=== PATIENT | male | born 1985 | race Caucasian/White ===

== ENCOUNTER 2022-01-05 09:55 | Outpatient (REF) | payer SELFPAY | END 2022-01-05 09:56 | disposition home or self-care (01) | LOC: NCHCN 09:55 | PROVIDERS: Visit Provider Nurse Practitioner Family | CPT/HCPCS: 80053; 85027; 80178 ==

== ENCOUNTER 2022-01-14 23:08 | Outpatient (REF) | payer BC, MEDICARE, SELFPAY | END 2022-01-14 23:09 | disposition home or self-care (01) | LOC: LBN 23:08 | PROVIDERS: Visit Provider Physician Assistant Medical | DX: L72.9 Follicular cyst of the skin and subcutaneous tissue, unspecified (principal) | CPT/HCPCS: 87070; 87205 ==

== ENCOUNTER 2022-01-17 16:46 | Outpatient (REF) | payer BC, MEDICARE, SELFPAY ==
[2022-01-17 18:21] LABS: HCT 45.6 % (40.0-50.0); HGB 14.7 g/dL (13.5-17.5); MCH 27.9 pg (27.0-33.0); MCHC 32.2 % (32.0-36.0); MCV 86.5 fL (80-95); MPV 11.9 fL (8.0-11.0); Platelet Count 225 10^3/uL (130-400); RBC 5.27 10^6/uL (4.36-5.78); RDW 12.4 % (11.8-14.1); RDW-SD 39.1 fL; WBC 7.17 10^3/uL (4.4-10.8)
[2022-01-17 18:47] LABS: ALT 39 U/L (16-63); AST 16 U/L (15-37); Albumin 4.1 g/dL (3.4-5.0); Alkaline Phosphatase 98 U/L (46-116); Anion Gap 8.6 mmol/L (3-11); BUN 13 mg/dL (7-18); Bilirubin, Total 0.7 mg/dL (0.2-1.0); CO2 23.4 mmol/L (21.0-32.0); CREATININE 1.1 mg/dL (0.70-1.30); Calcium 8.8 mg/dL (8.5-10.1); Chloride 106 mmol/L (98-107); Glucose 146 mg/dL (74-106); Potassium 4.3 mmol/L (3.5-5.1); Sodium 138 mmol/L (136-145); Total Protein 6.8 g/dL (6.4-8.2)
[2022-01-17 20:13] LABS: Lithium 0.6 mmol/l (0.6-1.2)
== END 2022-01-17 16:47 | disposition home or self-care (01) ==
LOC: NCHCN 16:46
PROVIDERS: Visit Provider Nurse Practitioner Family
DX: F41.8 Other specified anxiety disorders (principal); E66.9 Obesity, unspecified; Z51.81 Encounter for therapeutic drug level monitoring; Z79.899 Other long term (current) drug therapy
CPT/HCPCS: 80053; 85027; 80178

== ENCOUNTER 2022-02-02 21:19 | Emergency (ER) | payer BC, MEDICARE, SELFPAY ==
--- NOTE | 2022-02-02 21:37 | ED.GENADUL_ITS ---
Discharge Plan Disposition Patient Disposition: STILL A PATIENT Condition: Stable Discharge Details Clinical Impression: Bipolar disorder, manic Primary Care Provider: XIAO GAMINO ED Provider: Julius Fraser Meds and New Rx's Prescriptions: No Action doxycycline monohydrate 100 mg Tablet 100 mg PO DAILY bupropion HCl [Wellbutrin SR] 100 mg Tablet Sustained-Release 12 Hr 100 mg PO DAILY lorazepam 0.5 mg Tablet 0.5 mg PO PRN PRN lithium carbonate 600 mg Capsule 1,200 mg PO DAILY cholecalciferol (vitamin D3) [Vitamin D3] 25 mcg (1,000 unit) Capsule 1,000 mcg PO DAILY melatonin 5 mg Tablet 10 mg DAILY Medical Decision Making Patient presenting with police for psychiatric evaluation. He has no physical complaint. He is mostly cooperative. EKG and laboratory studies ordered. I reviewed mental health note and the warrant. Patient has history of bipolar and does appear to be exhibiting acute fe. Laboratory studies are unremarkable. Comfort level a little low. EKG normal except for tachycardia. I will EE the patient and hold for secondary certification from psychiatry. Patient regular medications ordered. Ativan tonight as well to try to encourage sleep. Lab Data Lab results reviewed: Yes I reviewed the patient's lab results. ECG Data Attestation: I personally reviewed and interpreted this ECG (s) as follows: Prior ECG tracings: not available for review Interpretation: see EKG HPI General Mode of arrival: ambulatory . Date/Time Provider Initiated Documentation: 02/02/22 21:37 . Information obtained by: patient, police and RN notes reviewed . HPI Narrative: Patient is brought to the ED by police on a warrant for emergency evaluation. Per ED warrant patient has history of bipolar disorder and has been worsening with insomnia, isolation, incoherent thinking and threats against his . Patient's mother is the individual who notified mental health of patient's decline. Patient arrives here mostly cooperative though clearly upset. Reports that his mother is just sticking her nose into places it does not belong. In the ED patient is hypervigilant, easily distractable, tangential and at times incoherent. He is constantly talking and unable to sit still. He denies any physical complaint. Related Data Home Medications Medication Instructions Recorded Confirmed bupropion HCl 100 mg tablet,12 hr 100 mg PO DAILY 02/03/22 02/03/22 sustained-release (Wellbutrin SR) cholecalciferol (vitamin D3) 25 1,000 mcg PO DAILY 02/03/22 02/03/22 mcg (1,000 unit) capsule (Vitamin D3) doxycycline monohydrate 100 mg 100 mg PO DAILY 02/03/22 02/03/22 tablet lithium carbonate 600 mg capsule 1,200 mg PO DAILY 02/03/22 02/03/22 lorazepam 0.5 mg tablet 0.5 mg PO PRN PRN 02/03/22 02/03/22 melatonin 5 mg tablet 10 mg DAILY 02/03/22 02/03/22 Allergies Allergy/AdvReac Type Severity Reaction Status Date / Time No Known Allergies Allergy Verified 02/02/22 21:53 Review of Systems Unobtainable due to mental condition PFSH All Active Problems (Updated 02/03/22 @ 03:01 by Julius Fraser MD) Bipolar disorder, manic (Acute) Medical History (Updated 02/03/22 @ 03:01 by Julius Fraser MD) Bipolar disorder Social History (Updated 02/03/22 @ 02:56 by Julius Fraser MD) Smoking risk assessment performed?: No Substance use type: marijuana Exam Narrative Exam Narrative: Const: Obese male in NAD. HEENT: NC/AT. Normal facial exam. Eyes: Normal conjunctiva and sclera. Neck: Supple. Trachea midline. Lungs: Normal respiratory effort. Lungs are clear. Cor: RRR without murmur/gallop. Good radial pulses. GI: Soft. NT/ND. No guarding or rebound. Neuro: A+O x 3. Normal speech, gait. Cranial nerves II - XII grossly intact. No gross motor or sensory deficit. Ext: No C/C/E. Skin: Warm and dry Psych: Cooperative. Chatty and constantly in motion. Tangential with flight of ideas at times though not consistently.
[2022-02-02 21:41] VITALS: BP 161/103; PULSE 136; RESP 22; TEMP 37.1; O2SAT 98
--- NOTE | 2022-02-02 21:45 | RT.EKG_ITS ---
APPROVED REPORT Exam: Resting ECG Reason for Exam: psych clearance Patient Location: E HR:112 bpm ECG Measurements Heart Rate 112 AXIS AZ 169 P 26 QRSd 94 QRS 54 QT 336 T 36 QTc 459 Conclusion Sinus tachycardia...rate> 99 Normal [place] I have reviewed and interpreted ECG and agree with software generated interpretation.
[2022-02-02 22:29] LABS: Abs Immature Grans 0.07 10^3/uL (0.0-0.06); Absolute Basophil Count 0.07 10^3/uL (0.0-0.2); Absolute Eosinophil Count 0.05 10^3/uL (0.0-0.7); Absolute Lymphocyte Count 2.57 10^3/uL (1.2-3.4); Absolute Monocyte Count 0.71 10^3/uL (0.1-0.8); Absolute Neutrophil Count 9.92 10^3/uL (1.2-6.7); Basophils % 0.5; Eosinophils % 0.4; HCT 45.1 % (40.0-50.0); HGB 15.4 g/dL (13.5-17.5); Immature Grans % 0.5; Lymphocytes % 19.2; MCH 29.1 pg (27.0-33.0); MCHC 34.1 % (32.0-36.0); MCV 85 fL (80-95); MPV 10.8 fL (8.0-11.0); Monocytes % 5.3; Neutrophils % 74.1; Platelet Count 287 10^3/uL (130-400); RBC 5.29 10^6/uL (4.36-5.78); RDW 12.7 % (11.8-14.1); WBC 13.39 10^3/uL (4.4-10.8)
[2022-02-02 22:42] LABS: *AMPHETAMINES SCREEN URINE Negative (Negative); *BARBITURATES SCREEN URINE Negative (Negative); *BENZODIAZEPINES SCREEN URINE Negative (Negative); Cannabinoids THC Positive (Negative); Cocaine Screen,Urine Negative (Negative); METHADONE URINE SCREEN Negative (Negative); OPIATES URINE SCREEN Negative (Negative)
[2022-02-02 22:43] LABS: Tricyclic Antidepressants Negative (Negative)
[2022-02-02 22:48] LABS: Acetaminophen < 2 ug/mL (10-30); Salicylate < 2.8 mg/dL (<2.8)
[2022-02-02 22:50] LABS: ALT 43 U/L (16-63); AST 20 U/L (15-37); Albumin 4.6 g/dL (3.4-5.0); Alkaline Phosphatase 90 U/L (46-116); Anion Gap 15.1 mmol/L (3-11); BUN 9 mg/dL (7-18); CO2 19.9 mmol/L (21.0-32.0); CREATININE 1.2 mg/dL (0.70-1.30); Calcium 8.9 mg/dL (8.5-10.1); Chloride 103 mmol/L (98-107); Glucose 146 mg/dL (74-106); Potassium 3.4 mmol/L (3.5-5.1); Sodium 138 mmol/L (136-145); TSH (W/Ref FT4) 2.57 uIU/mL (0.36-3.74); Total Protein 7.8 g/dL (6.4-8.2)
[2022-02-02 23:01] LABS: ETHANOL BLOOD < 3.0 mg/dL (<10)
[2022-02-02 23:38] LABS: Lithium 0.4 mmol/l (0.6-1.2)
[2022-02-02] MEDS: Lithium Carbonate 150 MG CAP (23:54)
[2022-02-02] MEDS: Doxycycline Hyclate 100 MG CAP PO (23:55)
[2022-02-02] MEDS: Melatonin 3 MG TAB 9 MG PO (23:55)
[2022-02-03 01:36] LABS: Lab Add On Test DONE
--- NOTE | 2022-02-03 06:49 | NUR.NOTE ---
0000 Pt with pressured speech, laying on floor and telling stories to [employer]. This RN offered pt PRN Ativan which patient declined, stating that isnt going to fix my situation 0300 Pt still awake and talking loudly to [employer]. Offered ativan again, pt declined. 0700 Pt still awake, did not sleep all night and is still awake talking to [employer]. Gave report to oncoming RN, Beulah. shadi
[2022-02-03 07:17] VITALS: BP 137/85; PULSE 93; RESP 16; TEMP 36.9; O2SAT 98
[2022-02-03 08:51] LABS: Source Nasal/Nares
[2022-02-03] MEDS: Doxycycline Hyclate 100 MG CAP PO ×2 (09:10→21:24)
[2022-02-03] MEDS: buPROPion-CR 100 MG TABCR PO (09:10)
[2022-02-03] MEDS: Cholecalciferol (Vitamin D3) 1,000 UNIT TAB 1000 UNITS PO (09:11)
--- NOTE | 2022-02-03 11:03 | CMSP_ITS ---
- If Service Date Differs Date of service: 02/03/22 Time of Service: 11:03 Care Management Safety Plan Status: Involuntary - Reason for Wait Reason for Wait: Inpatient Admission INVOLUNTARY FOR INPATIENT PSYCHIATRIC STABILIZATION. Chief Complaint: Venkata presents in the ED via police on a Warrant for Emergency Examination. He has a diagnosis of record of Bipolar 1 Disorder and has had several psychiatric hospitalizations in the past with his last hospitalization being in September 2020. Venkata is manic, reportedly has not slept in 3 - 4 days, and his mental health is decompensating. Venkata was reassessed by Rach [facility] Crisis Screener, this morning. He will remain at [facility] on involuntary status while awaiting a Second Certification by Psychiatrist and placement. Referrals are faxed to [facility], [facility], [facility], and [facility] for review. A huddle is done at 10:[address] Montero, ED provider, Monica, nursing fountain supervisor, Beulah, charge nurse, Diana RN, and SALINA Sloan, in attendance. Safety plan has been established to meet the needs of the patient, and consideration of the care team, to adhere to patient goals, identify restrictions based on behavioral status, address nutrition, and determine allowed personal belongings, tools for hygiene and personal care. Determine level of activity including ambulation, level of supervision, visitors, and determine privileges based on behaviors and level of engagement by pt. SAFETY PLAN: 1. Will remain on SI/HI precautions. In Paper Clothes 2. Will remain in room under direct supervision of one-on-one staff at all times provided by [employer], YESSENIA, PENSION ADVISER fertilizing machine operator. 3. May have paper cups, plates, finger foods as well as a cardboard spoon with which to eat meals. 4. Follow [facility] Management of the Admitted Behavioral Health Patient policy. 5. Shower permitted with supervision and at RN discretion. 6. No personal belongings. 7. Visitors: None at this time. 8. Activities: Soft cart items, music tablet, television, and other activities at RN discretion. 9. Bathroom privileges with escort in the ED. 10. Phone: May use [email or web address] hospital phone at RN discretion. Therapist, Lul Salguero, is a good support for patient. [facility] is contacting patient's to ask her to call Mr. Salguero to request that he outreach to patient while he is at [facility]. 11. Due to INVOLUNTARY status, patient is being held at [facility] by the Department of Mental Health ([facility]) until 2nd certification by [facility] Psychiatrist can be perfo rmed (within 24 hours). Staff will provide de-escalation support (CPI) as needed. If patient wishes to leave [facility], staff will contact [facility] Crisis Screener ([phone]) and On-Call Dado Operator ([phone]) as soon as possible. In the event of elopement, notify [facility] Police ([phone]). Patient is currently involuntarily at [facility]. [facility] Frontline Oxyacetylene Welder will continue seeking placement. Please contact the Prototype [employer] Dado Operator ([phone]) for any needed changes to Safety Plan. Safety plan has been provided to interdepartmental care team. Patient will be transported by candy catcher at time of discharge.
[2022-02-03 12:11] LABS: COVID-19 PCR Negative (Negative)
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
--- NOTE | 2022-02-03 16:18 | W.EDPROG ---
Date of service: 02/03/22 Time of Service: 15:19 Medical Decision Making Care was signed out by Dr. Fraser. Patient on EE hold. Initial certification has been performed and awaiting second certification. Patient did take his morning prescribed meds but refused offered anxiolytic. Patient did take his lithium last night as he was subtherapeutic. His next dose is scheduled for this evening. Patient is quite awake with flight of ideas at times. He has been provided his patient rights. A huddle was performed with nursing, to H&P and care management and a safety plan was developed which was shared with the patient. Sign Out Sign Out Data: Sign Out Comment: pending 2nd certification Last updated by Julius Fraser MD at 02/03/22 07:39 Discharge Plan Disposition Patient Disposition: STILL A PATIENT Condition: Stable Discharge Details Clinical Impression: Bipolar disorder, manic Primary Care Provider: XIAO GAMINO ED Provider: Duc Montero Home Meds and New Rx's Prescriptions: No Action doxycycline monohydrate 100 mg Tablet 100 mg PO DAILY bupropion HCl [Wellbutrin SR] 100 mg Tablet Sustained-Release 12 Hr 100 mg PO DAILY lorazepam 0.5 mg Tablet 0.5 mg PO PRN PRN lithium carbonate 600 mg Capsule 1,200 mg PO DAILY cholecalciferol (vitamin D3) [Vitamin D3] 25 mcg (1,000 unit) Capsule 1,000 mcg PO DAILY melatonin 5 mg Tablet 10 mg DAILY
--- NOTE | 2022-02-03 19:45 | NUR.NOTE ---
Nursing Note: Attempted to contact of patient around 19:45. Will attempt again later.
--- NOTE | 2022-02-03 19:58 | PDOC.MHCN ---
Date of service: 02/03/22 Time of Service: 19:27 Mental Health Crisis Note Presenting Issue How did you arrive at the ED and why did you come: Pt arrived on 02.02.2022 after ESC Muzzy and this clinician assessed him at his home after concerning calls form his and his mother about a possible manic episode that was deteriorating his ability to care for himself. Precipitating Factors Pt denied Si and HI however, he is experiencing an episode of fe. Disposition BEHAVIOR: Pt presents as agitated and eager to go home and not be in the hospital any longer stating that he has tickets for a concert [employer] and would like to go. He earlier stated that he wants to go home to sleep accusing police of preventing him from doing son on 02.02.2022. EYE CONTACT: Eye contact is sporadic. MOOD: Mood is agitated but cooperative. AFFECT: Affect is congruent. APPETITE: Good per his report. SLEEP(trouble falling/staying asleep: Has not slept in 4 days. Plan Pt will remain at [facility] until placement is found. [facility] [place] called [facility] and stated that they needed a prior authorization for potential placement on 02.04.2022. This clinician called BC/BS and was informed that no prior auth was necessary as all mental health treatments are approved. This clinician gave contact information for a clinician to outreach to this clinician on Sunday. This information was shared with [place] as well as [facility]. This clinician will arrive first thing in the am on 02.04.2022 to re-assess, complete the transport check list and [facility] from [facility] to [place]. Signature Clinician's Name/Title: Rach Márquez MS, [facility] Emergency Services Clinician, [facility]
[2022-02-03] MEDS: Melatonin 3 MG TAB 9 MG PO (21:24)
[2022-02-03] MEDS: Lithium Carbonate 300 MG CAP 600 MG PO (21:24)
--- NOTE | 2022-02-03 22:10 | W.EDPROG ---
Date of service: 02/03/22 Time of Service: 21:10 Medical Decision Making Patient intermittently pacing in room, talking to various staff members, at times tangential and aggressive however redirectable, requesting his CPAP for sleep. Compliant with taking his evening medications. Was attached to CPAP is resting comfortably in bed currently. Has been accepted at [facility]. Sign Out Sign Out Data: Sign Out Comment: pending 2nd certification Last updated by Julius Fraser MD at 02/03/22 07:39 Sign Out Comment: pending second cert. [facility], care mangement, and nursing. Last updated by Duc Montero MD at 02/03/22 16:22 Discharge Plan Disposition Patient Disposition: STILL A PATIENT Condition: Stable Discharge Details Clinical Impression: Bipolar disorder, manic Primary Care Provider: XIAO GAMINO ED Provider: Feng Hutchison Home Meds and New Rx's Prescriptions: No Action doxycycline monohydrate 100 mg Tablet 100 mg PO DAILY bupropion HCl [Wellbutrin SR] 100 mg Tablet Sustained-Release 12 Hr 100 mg PO DAILY lorazepam 0.5 mg Tablet 0.5 mg PO PRN PRN lithium carbonate 600 mg Capsule 1,200 mg PO DAILY cholecalciferol (vitamin D3) [Vitamin D3] 25 mcg (1,000 unit) Capsule 1,000 mcg PO DAILY melatonin 5 mg Tablet 10 mg DAILY
[2022-02-03] MEDS: LORazepam 1 MG TAB 2 MG PO (23:27)
--- NOTE | 2022-02-03 23:51 | ED.PROG_ITS ---
Date of service: 02/03/22 Time of Service: 22:51 Medical Decision Making pt here involuntary for decompensated bipolar and apparently accepted at [facility]. REquested something to help him sleep so ativan ordered, will continue to monitor in the ED Sign Out Sign Out Data: Sign Out Comment: pending 2nd certification Last updated by Julius Fraser MD at 02/03/22 07:39 Sign Out Comment: pending second cert. care plan developed in huddle with mental health, care mangement, and nursing. Last updated by Duc Montero MD at 02/03/22 16:22 Sign Out Comment: now certified as involuntary hold, accepted at [facility]; on CPAP to sleep Last updated by Feng Hutchison MD at 02/03/22 23:02 Sign Out Comment: involuntary, accepted at [facility] pending transfer Last updated by Carlitos Singh MD at 02/03/22 23:43 Discharge Plan Disposition Patient Disposition: STILL A PATIENT Condition: Stable Discharge Details Clinical Impression: Bipolar disorder, manic Primary Care Provider: XIAO GAMINO ED Provider: Carlitos Singh Home Meds and New Rx's Prescriptions: No Action doxycycline monohydrate 100 mg Tablet 100 mg PO DAILY bupropion HCl [Wellbutrin SR] 100 mg Tablet Sustained-Release 12 Hr 100 mg PO DAILY lorazepam 0.5 mg Tablet 0.5 mg PO PRN PRN lithium carbonate 600 mg Capsule 1,200 mg PO DAILY cholecalciferol (vitamin D3) [Vitamin D3] 25 mcg (1,000 unit) Capsule 1,000 mcg PO DAILY melatonin 5 mg Tablet 10 mg DAILY
[2022-02-04] MEDS: Acetaminophen 500 MG TAB 1000 MG PO (03:52)
[2022-02-04 06:59] VITALS: BP 120/70; PULSE 86; RESP 18; TEMP 36.6; O2SAT 97
--- NOTE | 2022-02-04 08:35 | ED.PROG_ITS ---
Date of service: 02/04/22 Time of Service: 07:35 Medical Decision Making 0800 --please see previous providers notes for initial presentation, exam, plan and course. Case endorsed with plan for transfer this morning after acceptance to [facility]. 0815 --Pt began yelling stating I'm an atheist after speaking with his over the phone. Patient was able to be redirected and became calm. 0830 --patient accepted for transfer to [facility]. Discussed with accepting PAINT DEPARTMENT SUPERVISOR J Carlos Thomas. Patient has remained calm and cooperative. 1230 --patient initially was refusing to go with transport stating I want to go home . He was able to be redirected and discussed with Rach and is agreeable with transfer. Patient ambulated out of the ED with transport. Medical Records Medical records reviewed: Yes I reviewed the patient's medical records. Lab Data Lab results reviewed: Yes I reviewed the patient's lab results. Labs: Laboratory Tests Range/Units 02/01/22 02/02/22 02/02/22 23:13 22:10 22:15 WBC (4.4-10.8) 10^3/uL RBC (4.36-5.78) 10^6/uL Hgb (13.5-17.5) g/dL Hct (40.0-50.0) % MCV (80-95) fL MCH (27.0-33.0) pg MCHC (32.0-36.0) % RDW (11.8-14.1) % Plt Count (130-400) 10^3/uL MPV (8.0-11.0) fL Immature Gran % Neutrophils % Lymphocytes % Monocytes % Eosinophils % Basophils % Nucleated RBC % (0.0-0.3) % Absolute Neutrophils (1.2-6.7) 10^3/uL Absolute Lymphocytes (1.2-3.4) 10^3/uL Absolute Monocytes (0.1-0.8) 10^3/uL Absolute Eosinophils (0.0-0.7) 10^3/uL Absolute Basophils (0.0-0.2) 10^3/uL Sodium (136-145) mmol/L 138 Potassium (3.5-5.1) mmol/L 3.4 L Chloride (98-107) mmol/L 103 Carbon Dioxide (21.0-32.0) mmol/L 19.9 L Anion Gap (3-11) mmol/L 15.1 H BUN (7-18) mg/dL 9 Creatinine (0.70-1.30) mg/dL 1.2 Estimated GFR/1.73 m2 (mL/min/1.73m2) >= 60.00 Glucose (74-106) mg/dL 146 H Calcium (8.5-10.1) mg/dL 8.9 Total Bilirubin (0.2-1.0) mg/dL 1.0 AST (15-37) U/L 20 ALT (16-63) U/L 43 Alkaline Phosphatase (46-116) U/L 90 Total Protein (6.4-8.2) g/dL 7.8 Albumin (3.4-5.0) g/dL 4.6 TSH (0.36-3.74) uIU/mL 2.57 Salicylates (<2.8) mg/dL Urine Opiates Screen (Negative) Negative Urine Methadone Screen (Negative) Negative Acetaminophen (10-30) ug/mL Ur Barbiturates Screen (Negative) Negative Ur Tricyclics Screen (Negative) Negative Ur Amphetamines Screen (Negative) Negative U Benzodiazepines Scrn (Negative) Negative [place] (0.6-1.2) mmol/l Urine Cocaine Screen (Negative) Negative Ur THC Screen (Negative) Positive A Ethyl Alcohol (<10) mg/dL < 3.0 COVID-19 Source SARS-CoV-2 (PCR) (Negative) Add-On Test Request DONE Range/Units 02/02/22 02/02/22 02/02/22 22:15 22:15 23:11 WBC (4.4-10.8) 10^3/uL 13.39 H RBC (4.36-5.78) 10^6/uL 5.29 Hgb (13.5-17.5) g/dL 15.4 Hct (40.0-50.0) % 45.1 MCV (80-95) fL 85 MCH (27.0-33.0) pg 29.1 MCHC (32.0-36.0) % 34.1 RDW (11.8-14.1) % 12.7 Plt Count (130-400) 10^3/uL 287 MPV (8.0-11.0) fL 10.8 Immature Gran % 0.5 Neutrophils % 74.1 Lymphocytes % 19.2 Monocytes % 5.3 Eosinophils % 0.4 Basophils % 0.5 Nucleated RBC % (0.0-0.3) % 0.0 Absolute Neutrophils (1.2-6.7) 10^3/uL 9.92 H Absolute Lymphocytes (1.2-3.4) 10^3/uL 2.57 Absolute Monocytes (0.1-0.8) 10^3/uL 0.71 Absolute Eosinophils (0.0-0.7) 10^3/uL 0.05 Absolute Basophils (0.0-0.2) 10^3/uL 0.07 Sodium (136-145) mmol/L Potassium (3.5-5.1) mmol/L Chloride (98-107) mmol/L Carbon Dioxide (21.0-32.0) mmol/L Anion Gap (3-11) mmol/L BUN (7-18) mg/dL Creatinine (0.70-1.30) mg/dL Estimated GFR/1.73 m2 (mL/min/1.73m2) Glucose (74-106) mg/dL Calcium (8.5-10.1) mg/dL Total Bilirubin (0.2-1.0) mg/dL AST (15-37) U/L ALT (16-63) U/L Alkaline Phosphatase (46-116) U/L Total Protein (6.4-8.2) g/dL Albumin (3.4-5.0) g/dL TSH (0.36-3.74) uIU/mL Salicylates (<2.8) mg/dL < 2.8 Urine Opiates Screen (Negative) Urine Methadone Screen (Negative) Acetaminophen (10-30) ug/mL < 2 Ur Barbiturates Screen (Negative) Ur Tricyclics Screen (Negative) Ur Amphetamines Screen (Negative) U Benzodiazepines Scrn (Negative) [place] (0.6-1.2) mmol/l 0.4 L Urine Cocaine Screen (Negative) Ur THC Screen (Negative) Ethyl Alcohol (<10) mg/dL COVID-19 Source SARS-CoV-2 (PCR) (Negative) Add-On Test Request Range/Units 02/03/22 08:45 WBC (4.4-10.8) 10^3/uL RBC (4.36-5.78) 10^6/uL Hgb (13.5-17.5) g/dL Hct (40.0-50.0) % MCV (80-95) fL MCH (27.0-33.0) pg MCHC (32.0-36.0) % RDW (11.8-14.1) % Plt Count (130-400) 10^3/uL MPV (8.0-11.0) fL Immature Gran % Neutrophils % Lymphocytes % Monocytes % Eosinophils % Basophils % Nucleated RBC % (0.0-0.3) % Absolute Neutrophils (1.2-6.7) 10^3/uL Absolute Lymphocytes (1.2-3.4) 10^3/uL Absolute Monocytes (0.1-0.8) 10^3/uL Absolute Eosinophils (0.0-0.7) 10^3/uL Absolute Basophils (0.0-0.2) 10^3/uL Sodium (136-145) mmol/L Potassium (3.5-5.1) mmol/L Chloride (98-107) mmol/L Carbon Dioxide (21.0-32.0) mmol/L Anion Gap (3-11) mmol/L BUN (7-18) mg/dL Creatinine (0.70-1.30) mg/dL Estimated GFR/1.73 m2 (mL/min/1.73m2) Glucose (74-106) mg/dL Calcium (8.5-10.1) mg/dL Total Bilirubin (0.2-1.0) mg/dL AST (15-37) U/L ALT (16-63) U/L Alkaline Phosphatase (46-116) U/L Total Protein (6.4-8.2) g/dL Albumin (3.4-5.0) g/dL TSH (0.36-3.74) uIU/mL Salicylates (<2.8) mg/dL Urine Opiates Screen (Negative) Urine Methadone Screen (Negative) Acetaminophen (10-30) ug/mL Ur Barbiturates Screen (Negative) Ur Tricyclics Screen (Negative) Ur Amphetamines Screen (Negative) U Benzodiazepines Scrn (Negative) [place] (0.6-1.2) mmol/l Urine Cocaine Screen (Negative) Ur THC Screen (Negative) Ethyl Alcohol (<10) mg/dL COVID-19 Source Nasal/Nares SARS-CoV-2 (PCR) (Negative) Negative Add-On Test Request Sign Out Sign Out Data: Sign Out Comment: pending 2nd certification Last updated by Julius Fraser MD at 02/03/22 07:39 Sign Out Comment: pending second cert. [facility], care mangement, and nursing. Last updated by Duc Montero MD at 02/03/22 16:22 Sign Out Comment: now certified as involuntary hold, accepted at [facility]; on CPAP to sleep Last updated by Feng Hutchison MD at 02/03/22 23:02 Sign Out Comment: involuntary, accepted at [facility] pending transfer Last updated by Carlitos Singh MD at 02/03/22 23:43 Discharge Plan Disposition Patient Disposition: [facility] Condition: Stable Discharge Details Clinical Impression: Bipolar disorder, manic Primary Care Provider: XIAO GAMINO ED Provider: Devora An Home Meds and New Rx's Prescriptions: No Action doxycycline monohydrate 100 mg Tablet 100 mg PO DAILY bupropion HCl [Wellbutrin SR] 100 mg Tablet Sustained-Release 12 Hr 100 mg PO DAILY lorazepam 0.5 mg Tablet 0.5 mg PO PRN PRN lithium carbonate 600 mg Capsule 1,200 mg PO DAILY cholecalciferol (vitamin D3) [Vitamin D3] 25 mcg (1,000 unit) Capsule 1,000 mcg PO DAILY melatonin 5 mg Tablet 10 mg DAILY Discharge Data Discharge Date/Time-TO BE ENTERED AT DEPARTURE: 02/04/22 12:43
[2022-02-04] MEDS: Cholecalciferol (Vitamin D3) 1,000 UNIT TAB 1000 UNITS PO (08:39)
[2022-02-04] MEDS: Doxycycline Hyclate 100 MG CAP PO (08:39)
[2022-02-04] MEDS: buPROPion-CR 100 MG TABCR PO (08:39)
--- NOTE | 2022-02-04 21:56 | PDOC.MHCN ---
Date of service: 02/04/22 Time of Service: 20:56 Mental Health Crisis Note Presenting Issue How did you arrive at the ED and why did you come: Pt arrived on 02.02.2022 after [facility] Muzzy and this clinician assessed him at his home after concerning calls form his and his mother about a possible manic episode that was deteriorating his ability to care for himself.? Precipitating Factors Pt denied SI and HI. He is not having delusions however, his thinking is disjointed. Disposition BEHAVIOR: Pt was agitated and argumentative about why he was there. He shows poor insight and judgment. EYE CONTACT: Pt makes intense eye contact. MOOD: Pt is agitated and verbally agressive. AFFECT: Congruent with mood. APPETITE: Pt is eating fine. SLEEP(trouble falling/staying asleep: Pt got maybe two hours of sleep last night. Plan Pt was accepted to [facility] today and transported via hired transport personnel. Signature Clinician's Name/Title: Rach Márquez MS, [facility] Emergency Services Clinician, [facility]
== END 2022-02-04 12:43 | disposition short-term general hospital (02) ==
PROVIDERS: Emergency Medicine; Student in an Organized Health Care Education/Training Program; Emergency Provider Physician Assistant; PCP Nurse Practitioner Family
DX: F31.9 Bipolar disorder, unspecified (principal); R00.0 Tachycardia, unspecified; Z79.899 Other long term (current) drug therapy
CPT/HCPCS: 80053; 80307; 87635; 93005; 99285; 80178; 80320; 80329; 84443; 85025; 93010

== ENCOUNTER 2022-02-23 18:28 | Outpatient (REF) | payer BC, MEDICARE, SELFPAY ==
[2022-02-23 15:06] LABS: HCT 45.8 % (40.0-50.0); HGB 15.2 g/dL (13.5-17.5); MCH 29.2 pg (27.0-33.0); MCHC 33.2 % (32.0-36.0); MCV 88 fL (80-95); MPV 11.2 fL (8.0-11.0); Platelet Count 206 10^3/uL (130-400); RBC 5.21 10^6/uL (4.36-5.78); RDW 13.5 % (11.8-14.1); RDW-SD 43.2 fL; WBC 8.29 10^3/uL (4.4-10.8)
[2022-02-23 15:25] LABS: ALT 59 U/L (16-63); AST 33 U/L (15-37); Albumin 3.9 g/dL (3.4-5.0); Alkaline Phosphatase 84 U/L (46-116); Anion Gap 8.6 mmol/L (3-11); BUN 13 mg/dL (7-18); Bilirubin, Total 0.8 mg/dL (0.2-1.0); CO2 24.4 mmol/L (21.0-32.0); CREATININE 0.9 mg/dL (0.70-1.30); Calcium 9.1 mg/dL (8.5-10.1); Chloride 108 mmol/L (98-107); Glucose 97 mg/dL (74-106); Potassium 4.4 mmol/L (3.5-5.1); Sodium 141 mmol/L (136-145); Total Protein 6.4 g/dL (6.4-8.2)
[2022-02-23 21:28] LABS: Lithium (UVM) 0.6 mmol/L (See Note)
== END 2022-02-23 18:29 | disposition home or self-care (01) ==
LOC: NCHCN 18:28
PROVIDERS: PCP Nurse Practitioner Family; Visit Provider Nurse Practitioner Family
DX: Z00.00 Encounter for general adult medical examination without abnormal findings (principal); Z51.81 Encounter for therapeutic drug level monitoring; F41.8 Other specified anxiety disorders; E66.9 Obesity, unspecified
CPT/HCPCS: 80053; 85027; 80178

== ENCOUNTER 2022-03-15 16:26 | Outpatient (REF) | payer BC, MEDICARE, SELFPAY ==
[2022-03-15 15:33] LABS: Lithium 0.9 mmol/l (0.6-1.2)
== END 2022-03-15 16:27 | disposition home or self-care (01) ==
LOC: NCHCN 16:26
PROVIDERS: PCP Nurse Practitioner Family; Visit Provider Nurse Practitioner Family
DX: Z79.899 Other long term (current) drug therapy (principal); Z51.81 Encounter for therapeutic drug level monitoring; F41.8 Other specified anxiety disorders
CPT/HCPCS: 80178

== ENCOUNTER 2022-06-05 03:47 | Outpatient (CLI) | payer BC, MEDICARE, SELFPAY ==
[2022-06-05 12:29] LABS: Hemoglobin A1C 5.4 % (<5.7)
[2022-06-05 12:33] LABS: Lithium 0.8 mmol/l (0.6-1.2)
[2022-06-05 12:35] LABS: Anion Gap 10.7 mmol/L (3-11); BUN 12 mg/dL (7-18); CO2 22.3 mmol/L (21.0-32.0); Calcium 8.8 mg/dL (8.5-10.1); Chloride 107 mmol/L (98-107); Estimated GFR 100.66 (mL/min/1.73m2); Glucose 127 mg/dL (74-106); Potassium 3.9 mmol/L (3.5-5.1); Sodium 140 mmol/L (136-145); TSH 1.53 uIU/mL (0.36-3.74)
== END 2022-06-05 03:48 | disposition home or self-care (01) ==
LOC: LOS 03:48
PROVIDERS: PCP Nurse Practitioner Family; Visit Provider Nurse Practitioner Psychiatric/Mental Health
DX: F33.3 Major depressive disorder, recurrent, severe with psychotic symptoms (principal)
CPT/HCPCS: 36415; 80048; 80178; 83036; 84443

== ENCOUNTER 2022-07-12 12:32 | Outpatient (REF) | payer BC, MEDICARE, SELFPAY | END 2022-07-12 12:33 | disposition home or self-care (01) | LOC: NCHCN 12:32 | PROVIDERS: PCP Nurse Practitioner Family; Visit Provider Nurse Practitioner Family | DX: N52.2 Drug-induced erectile dysfunction (principal); Z31.41 Encounter for fertility testing | CPT/HCPCS: 89240; 89310 ==

== ENCOUNTER 2022-10-05 10:56 | Outpatient (CLI) | payer BC, MEDICARE, SELFPAY ==
[2022-10-05 13:28] LABS: Abs Immature Grans 0.04 10^3/uL (0.0-0.06); Absolute Basophil Count 0.06 10^3/uL (0.0-0.2); Absolute Eosinophil Count 0.15 10^3/uL (0.0-0.7); Absolute Lymphocyte Count 2.24 10^3/uL (1.2-3.4); Absolute Monocyte Count 0.38 10^3/uL (0.1-0.8); Absolute Neutrophil Count 5.14 10^3/uL (1.2-6.7); Basophils % 0.7; Eosinophils % 1.9; HCT 43.8 % (40.0-50.0); HGB 14.7 g/dL (13.5-17.5); Immature Grans % 0.5; MCH 28.5 pg (27.0-33.0); MCHC 33.6 % (32.0-36.0); MCV 85 fL (80-95); MPV 10.7 fL (8.0-11.0); Monocytes % 4.7; Neutrophils % 64.2; Platelet Count 197 10^3/uL (130-400); RBC 5.15 10^6/uL (4.36-5.78); RDW 12.2 % (11.8-14.1); RDW-SD 37.9 fL; WBC 8.01 10^3/uL (4.4-10.8)
[2022-10-05 14:00] LABS: Hemoglobin A1C 6.6 % (<5.7)
[2022-10-05 14:21] LABS: ALT 35 U/L (16-63); AST 15 U/L (15-37); Albumin 4.1 g/dL (3.4-5.0); Alkaline Phosphatase 95 U/L (46-116); Anion Gap 11.7 mmol/L (3-11); BUN 9 mg/dL (7-18); Bilirubin, Total 0.8 mg/dL (0.2-1.0); CO2 22.3 mmol/L (21.0-32.0); CREATININE 1.1 mg/dL (0.70-1.30); Calcium 8.3 mg/dL (8.5-10.1); Calculated LDL 80 mg/dL (<100); Chloride 104 mmol/L (98-107); Cholesterol 147 mg/dL (<200); Estimated GFR 89.78 (mL/min/1.73m2); Ferritin 218 ng/mL (26-388); Folate 13.1 ng/mL (8.6-20.0); Glucose 239 mg/dL (74-106); HDL Cholesterol 50 mg/dL (40-60); Magnesium 2.1 mg/dL (1.8-2.4); Potassium 3.8 mmol/L (3.5-5.1); Sodium 138 mmol/L (136-145); TSH 2.14 uIU/mL (0.36-3.74); Total Protein 7.1 g/dL (6.4-8.2); Triglyceride 86 mg/dL (<150); Vitamin B12 530 pg/mL (193-986)
[2022-10-05 14:24] LABS: Lithium 0.6 mmol/l (0.6-1.2)
[2022-10-05 14:52] LABS: Vitamin D 25 Total 16.9 ng/mL (30-100)
[2022-10-05 15:02] LABS: C-Reactive Protein 0.19 mg/dL (0.0-0.3); FREE T4 1.06 ng/dL (0.76-1.46)
[2022-10-05 22:21] LABS: T3,Free 3.3 pg/mL (2.8-5.3)
[2022-10-07 11:14] LABS: Copper, Serum 87 mcg/dL (73-129)
== END 2022-10-05 10:57 | disposition home or self-care (01) ==
LOC: LBO 10:57
PROVIDERS: PCP Nurse Practitioner Family; Visit Provider Psychiatry & Neurology Psychiatry
DX: F33.3 Major depressive disorder, recurrent, severe with psychotic symptoms (principal); Z79.899 Other long term (current) drug therapy; Z01.89 Encounter for other specified special examinations; Z51.81 Encounter for therapeutic drug level monitoring; Z13.228 Encounter for screening for other metabolic disorders
CPT/HCPCS: 36415; 80053; 80061; 82306; 82525; 80178; 82607; 82728; 82746; 83036; 83735; 84439; 84443; 84481; 85025; 86140

== ENCOUNTER 2022-10-30 16:11 | Outpatient (REF) | payer BC, MEDICARE, SELFPAY ==
[2022-11-01 16:41] LABS: Appearance Normal; Container Type 50 mL Conical; Double Forms 3.5 %; Grade 2.5 (>=2.5); Head Shape Abnormal 35.5 %; Midpiece Defect 10.5 %; Motile/mL 0.1 x10(6) (>=6.0); Motility 20 % (>=40); Sperm/mL 0.5 x10(6) (>=15.0); Study Type Semen; Supravital Stain 18 % live (>=58); Tail Defect 33.5 %; WBC/mL 0.04 x10(6) (<1.00)
== END 2022-10-30 16:12 | disposition home or self-care (01) ==
LOC: LBN 16:11
PROVIDERS: PCP Nurse Practitioner Family; Visit Provider Nurse Practitioner Gerontology
DX: Z31.41 Encounter for fertility testing (principal)
CPT/HCPCS: 89240; 89310

== ENCOUNTER 2023-03-14 02:43 | Outpatient (CLI) | payer BC, MEDICARE, SELFPAY ==
[2023-03-14 12:20] LABS: Hemoglobin A1C 4.9 % (<5.7)
[2023-03-14 12:54] LABS: FREE T4 1.04 ng/dL (0.76-1.46); TSH 1.77 uIU/mL (0.36-3.74)
[2023-03-14 13:42] LABS: Lithium 0.9 mmol/l (0.6-1.2)
== END 2023-03-14 02:44 | disposition home or self-care (01) ==
LOC: LBO 02:43
PROVIDERS: PCP Nurse Practitioner Family; Visit Provider Counselor Addiction (Substance Use Disorder)
DX: F33.3 Major depressive disorder, recurrent, severe with psychotic symptoms (principal); Z79.899 Other long term (current) drug therapy; Z51.81 Encounter for therapeutic drug level monitoring
CPT/HCPCS: 36415; 80178; 83036; 84439; 84443

== ENCOUNTER 2023-04-26 18:05 | Outpatient (REF) | payer BC, MEDICARE, SELFPAY ==
[2023-04-26 16:46] LABS: Vitamin D 25 Total 22.2 ng/mL (30-100)
[2023-04-26 17:02] LABS: Anion Gap 9.8 mmol/L (3-11); BUN 20 mg/dL (7-18); CO2 24.2 mmol/L (21.0-32.0); CREATININE 0.9 mg/dL (0.70-1.30); Calcium 8.9 mg/dL (8.5-10.1); Chloride 108 mmol/L (98-107); Estimated GFR 113.51 (mL/min/1.73m2); Glucose 113 mg/dL (74-106); Potassium 4.2 mmol/L (3.5-5.1); Sodium 142 mmol/L (136-145)
== END 2023-04-26 18:06 | disposition home or self-care (01) ==
LOC: NCHCN 18:05
PROVIDERS: PCP Nurse Practitioner Family; Visit Provider Nurse Practitioner Family
DX: E11.9 Type 2 diabetes mellitus without complications (principal); E55.9 Vitamin D deficiency, unspecified
CPT/HCPCS: 80048; 82306

== ENCOUNTER 2023-07-19 18:32 | Outpatient (REF) | payer BC, MEDICARE, SELFPAY ==
[2023-07-19 19:05] LABS: Lithium 0.7 mmol/l (0.6-1.2)
[2023-07-19 19:21] LABS: ALT 33 U/L (16-63); AST 19 U/L (15-37); Albumin 4.1 g/dL (3.4-5.0); Alkaline Phosphatase 78 U/L (46-116); Anion Gap 7.8 mmol/L (3-11); BUN 15 mg/dL (7-18); Bilirubin, Total 0.9 mg/dL (0.2-1.0); CO2 24.2 mmol/L (21.0-32.0); CREATININE 0.8 mg/dL (0.70-1.30); Calcium 9.7 mg/dL (8.5-10.1); Chloride 108 mmol/L (98-107); Estimated GFR 117.63 (mL/min/1.73m2); Glucose 89 mg/dL (74-106); Potassium 4.3 mmol/L (3.5-5.1); Sodium 140 mmol/L (136-145)
== END 2023-07-19 18:33 | disposition home or self-care (01) ==
LOC: NCHCN 18:32
PROVIDERS: PCP Nurse Practitioner Family; Visit Provider Nurse Practitioner Family
DX: Z51.81 Encounter for therapeutic drug level monitoring (principal)
CPT/HCPCS: 80053; 80178

== ENCOUNTER 2023-11-28 14:48 | Outpatient (CLI) | payer BC, MEDICARE, SELFPAY ==
[2023-11-28 14:54] LABS: Lithium 0.7 mmol/l (0.6-1.2)
== END 2023-11-28 14:49 | disposition home or self-care (01) ==
PROVIDERS: PCP Nurse Practitioner Family; Visit Provider Nurse Practitioner Psychiatric/Mental Health
DX: F31.74 Bipolar disorder, in full remission, most recent episode manic (principal); Z51.81 Encounter for therapeutic drug level monitoring; Z79.899 Other long term (current) drug therapy
CPT/HCPCS: 36415; 80178

== ENCOUNTER 2024-06-12 03:19 | Outpatient (CLI) | payer BC, MEDICARE, SELFPAY ==
--- NOTE | 2024-06-12 14:15 | W.NUTRFU ---
Date of service: 06/12/24 Time of Service: 13:00 Nutrition Note NOTE: Venkata referred for nutrition visit regarding weight mgt. 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 A1C was 6.8% in April - Venkata states he self-discontinued metformin. Is on Ozempic but switching to Wegovy in 3 months due to insurance coverage. Eats dinner with at home but other meals are independent during the day. We reviewed typical eating pattern and choices and Venkata's current diet assessed in lower in protein and fiber. We discussed recommended energy intake of ~2400kcals and suggested a good 180g protein daily with 30-50 at his first meal ideally within an our of waking. Suggested use of whey protein powder 1-2 times daily to get ~50g satisfied and use other lean animal options and plant options to round out the rest. WE highlighted the value of plants in the diet and especially nuts/seeds and nonstarchy veggies to keep carb load down. Gave Venkata some macro goals as he does use my fitness pal antonio for tracking periodically. GAve fiber goal of at least 30g per day and added sugar goal of 30g or less out of a total CHO goal of ~225g per day. Venkata took my contact info should he desire follow up or more resources to help him keep track of how close he is coming to meeting macro goals. Time Spent in Nutritional Counseling and Treatment: 40min
== END 2024-06-12 03:20 | disposition home or self-care (01) ==
LOC: DS 03:20
PROVIDERS: PCP Nurse Practitioner Family; Visit Provider Dietitian, Registered
DX: Z71.3 Dietary counseling and surveillance (principal)
CPT/HCPCS: 00123; 97802

== ENCOUNTER 2024-06-16 15:17 | Outpatient (CLI) | payer BC, MEDICARE, SELFPAY ==
--- OUTSIDE RECORDS SUMMARY | 2024-06-16 15:21 | XMS_ITS | Data Portability ---
Author Organization [facility] Address [address] [place] [address] Care Team Providers Care Chief Lock Tender Operator Name Role Phone XIAO TREVIZO Primary Care Provider [phone] Assessment Encounter Date Assessment Date Assessment LastModified by Organization Details LastModified Time 05/13/2024 05/13/2024 Total Provider Time TODAY: 35 Minutes Not available 05/13/2024 09:13:40 Plan of Treatment Reminders Order Date Submit Date Provider Last Modified By Organization Details Last Modified Time Details Appointments Follow Up 30 2023 08:00A M Not available Not available Not available Lab hemoglobi n A1C, fingersti ck 2023 024 [email or web address] [facility], [address], [place], [address], 02/20/2024 08:57:08 hemoglobi n A1C, fingersti ck 2023 024 [email or web address] [facility], [address], [place], [address], 05/13/2024 09:07:37 Referral physical therapist referral 2023 024 ANNITA Barcenas PT, [address], [place], [address], 05/05/2024 04:24:44 nutrition ist/dieti enrrique referral 2023 024 [email or web address] [facility], [address] [place] [address] [place], [address], 06/10/2024 14:42:13 Procedures None recorded. Surgeries None recorded. Imaging None recorded. Medication Orders cyclobenz aprine 10 mg tablet 2023 024 ANNITA [facility], [address] [place], [address], 11/19/2023 16:02:41 Ozempic 1 mg/dose (4 mg/3 mL) subcutane ous pen injector 2023 024 ANNITA [facility], [address] [place] [address], [id number], 05/13/2024 07:58:15 Ozempic 2 mg/dose (8 mg/3 mL) subcutane ous pen injector 2023 024 ANNITA [facility], [address] [place] [address], [id number], 02/20/2024 09:16:02 Wegovy 0.5 mg/0.5 mL subcutane ous pen injector 2023 024 [facility], [address] [place] [address], [id number], 05/13/2024 09:07:35 Patient TargetsNo targets recorded. Patient Instructions Encounter Date Encounter Id Patient Instructions Last Modified By Organization Details Last Modified Time 11/19/2023 [id number] Acute low left back pain. Recommend Ibuprofen and Tylenol combination - For instance, take 600-800 mg of Ibuprofen, combined with 500-1,000 mg of Tylenol, 2-3 times daily, for up two weeks. Muscle relaxant prescribed - do not combine with clonazepam. Goal - light daily activity, active stretching, avoid further injury. If symptoms continue, lets consider physical therapy. Call with questions. [email or web address] Not available 11/19/2023 16:02:22 12/13/2023 [id number] 2 month follow. May advance to 1mg every week when ready - prescribed. Let me know if and when you are ready to advance to 2 mg weekly. Remember, you do not need to take the full dose on the pen - you may advance slowly. (72 clicks = 1mg, 36 clicks = 0.5 mg) Call with questions. [email or web address] Not available 12/13/2023 13:24:05 02/19/2024 [id number] 3 month follow. May advance to 2 mg ozempic every week. Remember, you do not need to take the full dose on the pen - you may advance slowly. (72 clicks = 2mg, 36 clicks = 1 mg) Physical therapy referral placed for your back. Call with questions. [email or web address] Not available 02/19/2024 07:56:57 05/13/2024 [id number] 3 month follow. WEGOVY prescribed. However, likely not covered. You may discuss with the pharmacy. Another option is ZEPBOUND. Continue with OZEMPIC (unless wegovy is covered). Consider adding back metformin. NUTRITION REFERRAL PLACED to [facility]. Call with questions. [email or web address] Not available 05/13/2024 08:28:16 05/19/2024 [id number] Please complete Worker's Comp paperwork. Once we have the paperwork complete, I will order an xray of your wrist + place a physical therapy referral for both your wrist and elbow. Please call with questions. [email or web address] Not available 05/19/2024 08:12:31 Reason for Referral Physical Therapist Referral for Acute low back pain Referring Physician: Xiao Trevizo, Family Medicine, Encounter Date: 02/19/2024 Yarn Wrapper/dietitian Refer ral for Body mass index 40+ - severely obese Referring Physician: Xiao Trevizo Family Medicine, Encounter Date: 05/13/2024 Results Created Date Observation Date Name Description Value Unit Range Abnormal Flag Note LastModifiedBy Organization Detail LastModifiedTime 11/28/19 24 11/28/2023 LITHI UM lithium 0.7 mmol/ l 0.6-1. 2 normal LITHI UM: Possi ble Toxic ity Risks . The sever ity of intox icati on is not clear ly relat ed to serum lithi um level s. Lithi um toxic ity, inclu ding sever e neuro toxic effec ts, can occur with tommy l serum lithi um level s. A narro w thera peuti c index exist s for lithi um. Serum Level (MMOL /L) Sympt oms 1.5 - 2.5 Polyu nicanor, blurr ed visio n, weakn ess adalgisa rgy, dizzi ness, incre ased refle xes, fasic ulati ons 2.5 - 3.0 Myocl onic twitc bertrand, incon tinen ce, stupo r, restl essne ss, coma >3.0 Seizu res, hypot ensio n, cardi ac arrhy thmia s Data taken from [facility] DeMot t: Labor atory Test Handb oUpward Mobility, [place]idre- Comp 2000. Not Available [address] [place], [address] 11/28/2023 14:59:15 11/28/19 24 11/28/2023 LITHI UM lithium 0.7 mmol/ l 0.6-1. 2 normal LITHI UM: Possi ble Toxic ity Risks . The sever ity of intox icati on is not clear ly relat ed to serum lithi um level s. Lithi um toxic ity, inclu ding sever e neuro toxic effec ts, can occur with tommy l serum lithi um level s. A narro w thera peuti c index exist s for lithi um. Serum Level (MMOL /L) Sympt oms 1.5 - 2.5 Polyu nicanor, blurr ed visio n, weakn ess adalgisa rgy, dizzi ness, incre ased refle xes, fasic ulati ons 2.5 - 3.0 Myocl onic twitc bertrand, incon tinen ce, stupo r, restl essne ss, coma >3.0 Seizu res, hypot ensio n, cardi ac arrhy thmia s Data taken from [facility] t: Labor atory Test Handb ook, [place]- Comp 2000. Not Available [address] [place], [address] 11/28/2023 16:51:42 02/19/20 24 02/19/2024 hemog lobin A1C, marje rstic k hemoglobin A1C 6.4 % <5.7 colle cted by RB Not Available [facility] [address], [place], [address], 02/19/2024 11:50:29 05/13/20 24 05/13/2024 hemog lobin A1C, marje rstic k hemoglobin A1C 6.8 % <5.7 Not Available [facility] [address], [place], [address], 05/13/2024 08:06:11 06/09/20 24 02/03/2022 imagi ng/di agnos tic resul t No observ ation record ed. [email or web address] Not Available 06/09 01:27:09 06/09/20 24 02/03/2022 imagi ng/di agnos tic resul t No observ ation record ed. [email or web address] Not Available 06/09 01:27:10 06/09/20 24 02/03/2022 imagi ng/di agnos tic resul t No observ ation record ed. [email or web address] Not Available 06/09 01:27:27 Result Notes None recorded. Problems Name Problem SNOMED Code Status Onset Date Resolution Date Notes Provider Name and Address Organization Details Recorded Time Anxiety 20974453 Completed 202110/19/2023 Problem Code: F41.8; Problem Code Type: ICD-10; TRAY TAR[address], [place], [address] , [facility]. 18:59:33 Severe obesity 19808324773 104 Completed 202110/19/2023 01/15/20 22 - Comments only - Xiao FELIZ - BMI 59.6. We will continue to assess and review treatmen t strategi es at subseque nt visits. Problem Code: E66.01; Problem Code Type: ICD-10; XIAO BLINN [address], [place], [address] , [facility] 18:58:01 Bipolar affectiv e disorder , current episode mixed 862455222 Active [address], [place], [address] , [facility] 18:59:38 Obstruct tawnya sleep apnea syndrome 43314765 Active [address], [place] [address] , [facility] 18:59:55 Nondepen dent cannabis abuse in pending sale to [facility] 581004772 Active [address], [facility] [address] , [facility] 18:59:52 Adult health examinat ion Completed 202110/19/2023 07/10/20 22 - Comments only - Xiao FELIZ - Recently received his COVID and influenz a boosters through his local pharmacy . Problem Code: Z00.00; Problem Code Type: ICD-10; [address], [place], [address] , [facility] 18:57:04 Follicul ar cysts of skin and subcutan eous tissue 088116149 Completed 202101/15/2022 Problem Code: L72.9; Problem Code Type: ICD-10; Not Available [facility] 05:51:19 Therapeu tic drug monitori ng assay 70365056 Completed 202110/19/2023 Problem Code: Z51.81; Problem Code Type: ICD-10; [address], [facility] [address] , [facility] 18:59:04 Increase d frequenc y of urinatio n 191827239 Completed 202110/19/2023 07/10/20 22 - Comments only - Xiao Trevizo CODING ASSISTANT - No acute findings with prior work-up. Patient contribu kristina to frequent hydratio n througho ut the day. Continue to monitor. 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 Plan for recheck at 6-month follow-u p. Problem Code: R73.9; Problem Code Type: ICD-10; [address], [place] [address] , [facility] 18:59:13 Infertil ity study Completed 202110/19/2023 Problem Code: Z31.41; Problem Code Type: ICD-10; [address], [place] [address] , [facility] 18:59:28 Infertil ity due to oligospe rmia 50832933 Active [address], [place], [address] , [facility] 4 18:59:49 Type 2 diabetes mellitus without complica tion 803341501 Active [address], [facility] [address] , [facility] 4 18:59:59 Vitamin D deficien cy 02844188 Active [address], [facility] [address] , [facility] 19:00:05 Left Achilles tendinit is 17465696169 9102 Completed 202210/19/2023 Problem Code: M76.62; Problem Code Type: ICD-10; [address], [facility] [address] , [facility] 07:53:14 Hidraden itis suppurat aleksandr 86140578 Active [address], [facility] [address] , [facility] 4 18:59:46 Cellulit is of toe of left foot 49079885952 054385 Completed 202210/19/2023 Problem Code: L03.032; Problem Code Type: ICD-10; [address], [facility] [address] , [facility] 18:59:21 Cannabis abuse 23066683 Completed 202106/20/2023 Problem Code: F12.10; Problem Code Type: ICD-10; Not Available [facility] 3 05:51:28 Irritabi lity and anger 745323839 Completed 202107/10/2022 Problem Code: R45.4; Problem Code Type: ICD-10; Not Available [facility] 3 05:51:28 Obesity 188358665 Completed 202103/29/2022 Problem Code: E66.9; Problem Code Type: ICD-10; Not Available [facility] 05:51:28 Nondepen dent cannabis abuse in [facility] n 172752652 Completed 202103/29/2022 Problem Code: F12.11; Problem Code Type: ICD-10; [address], [place], [address] , [facility] 18:59:52 Abscess of right lower limb 94132370138 248809 Completed 202103/29/2022 Problem Code: L02.415; Problem Code Type: ICD-10; Not Available [facility] 05:51:29 Sleep apnea 85091050 Completed 202106/20/2023 07/10/20 22 - Comments only - Xiao FELIZ - NIA on CPAP. Continue to monitor. Dependin g on nighttim e urinatio n pattern, may reevalua te NIA treatmen t. Problem Code: G47.30; Problem Code Type: ICD-10; Not Available [facility] 3 05:51:31 Abdomina l pain 85191906 Completed 202107/10/2022 Problem Code: R10.9; Problem Code Type: ICD-10; Not Available [facility] 3 05:51:34 Counseli ng Completed 202103/29/2022 Problem Code: Z71.89; Problem Code Type: ICD-10; [address], [place], [address] , [facility] 4 13:31:52 Ingrowin g nail 916573814 Completed 202207/22/2023 Problem Code: L60.0; Problem Code Type: ICD-10; Not Available [facility] 4 05:37:02 Otitis media of left ear 96997495364 90358 Completed 202208/11/2023 Problem Code: H66.92; Problem Code Type: ICD-10; Not Available [facility] 4 05:37:03 Cough 20539682 Completed 202208/11/2023 Problem Code: R05.8; Problem Code Type: ICD-10; Not Available [facility] 4 05:37:03 Left Achilles tendinit is 20785409940 9102 Completed 202202/19/2024 [address], [facility] [address] , [facility] 4 07:53:14 Acute low back pain 874355062 [facility] 05:58:52 Counseli barbara Active 2023 Obesity BMI [address], [facility] [address] , [facility] 4 13:31:51 Left Achilles tendinit is 11498230591 9102 Active 2023 Acute on chronic [address], [place], [address] , [facility] 4 07:53:14 Pain of right wrist 82257284155 9100 Active 2023 - WORKER'S COMP [address], [place], [address] , [facility] 4 08:35:11 Pain of right elbow joint 94122035328 523450 Active 2023 - WORKER'S COMP [address] [address], [place], [address] , [facility] 08:35:05 Notes:Some problems listed i n Documents: #[id number], #[id number] could not be added to this patient's chart. Please review these documents and add these problems to the patient's chart manually as needed. Problem Notes None recorded. Procedures Surgical History None recorded. Imaging Results Imaging Date Name Status LastModified by Organiz ation Details LastModified Time 02/03/2022 imaging/diag nostic result completed Information not available 06/09/2024 01:27:09 02/03/2022 imaging/diag nostic result completed Information not available 06/09/2024 01:27:10 02/03/2022 imaging/diag nostic result completed Information not available 06/09/2024 01:27:27 Procedure Notes None recorded. Medical Equipment None Reported. Allergies No known drug allergies Medications Name Sig Start Date Stop Date Status Note LastModified by Organization Details LastModified Time Prescripti on - Renewal active [RxRsp ] Not Available Not Available Not Available Prescripti on - Prior Authorizat ion Request active Not Available Not Available Not Available cyclobenza theresa 10 mg tablet TAKE ONE TABLET BY MOUTH TWICE A DAY NEEDED active Not Available Not Available No t Available benztropin e 0.5 mg tablet Take 1 tablet by mouth twice a day 12/26 completed Not Available Not Available Not Available haloperido l 5 mg tablet 3 tablet by mouth at bedtime as needed 02/26 completed RX [facility] Not Available Not Available Not Available trazodone 50 mg tablet TAKE ONE TABLET BY MOUTH AT BEDTIME 10/16 completed Not Available Not Available Not Available hydrocorti sone acetate 1 % topical cream Apply 1 a small amount to affected area three times a day as needed active Not Available Not Available No t Available meloxicam 15 mg tablet 1 tablet by mouth once a day 05/21 completed Not Available Not Available Not Available Wellbutrin SR 100 mg tablet, 12 hr sustained- release Take 1 tablet by mouth once a day 06/10 completed [facility] Not Available Not Available Not Available amoxicilli n 875 mg tablet Take 1 tablet by mouth twice a day 07/18 completed Not Available Not Available Not Available Vitamin D3 10 mcg (400 unit) tablet Take 1 tablet by mouth once a day 1000 IUs 01/03 completed Not Available Not Available Not Available lorazepam 0.5 mg tablet Take 1 tablet by mouth once a day as needed no more than once a day 06/10 completed [facility] Not Available Not Available Not Available trazodone 100 mg tablet TAKE ONE TABLET BY MOUTH AT BEDTIME active Not Available Not Available No t Available lithium carbonate 600 mg capsule TAKE THREE CAPSULES BY MOUTH EVERY DAY active Not Available Not Available No t Available lithium carbonate 300 mg capsule Take 1 capsule by mouth twice a day active Not Available Not Available No t Available doxycyclin e monohydrat e 100 mg capsule TAKE ONE CAPSULE BY MOUTH EVERY DAY 10/19 completed Not Available Not Available Not Available cephalexin 500 mg capsule 1 capsule by mouth four times a day 05/28 completed Not Available Not Available Not Available Viagra 25 mg tablet Take 1-2 tablet by mouth once a day as needed Take 0.5-4 hours before sexual activity. 2021 active Not Available Not Available Not Avai lable clonazepam 2 mg tablet TAKE ONE TABLET BY MOUTH AT BEDTIME active Not Available Not Available No t Available bupropion HCl 75 mg tablet Take tablet by mouth once a day 12/26 completed Not Available Not Available Not Available lithium carbonate 300 mg tablet 12/16 completed Not Available Not Available Not Available metformin ER 500 mg tablet,ext ended release 24 hr TAKE TWO TABLETS BY MOUTH TWICE A DAY 10/16 completed Not Available Not Available Not Available Bactrim DS 800 mg-160 mg tablet Take 2 tablet by mouth twice a day 01/21 completed Not Available Not Available Not Available aripiprazo le 10 mg tablet TAKE ONE TABLET BY MOUTH AT BEDTIME active Not Available Not Available No t Available aripiprazo le 5 mg tablet 10/16 completed RX [facility] Not Available Not Available Not Available melatonin 1 mg tablet Take 2 tablet by mouth at bedtime as needed active Not Available Not Available No t Available metformin ER 1,000 mg tablet,ext ended release 24hr (osmotic) Take 2 tablet by mouth once a day 11/22 completed Not Available Not Available Not Available Vitamin D3 50 mcg (2,000 unit) capsule Take 1 tablet by mouth once a day 2022 active Not Available Not Available Not Avai lable OneTouch Verio test strips TEST BLOOD SUGAR ONCE DAILY AND NEEDED FOR SYMPTOMS OF LOW BLOOD SUGAR active Not Available Not Available No t Available OneTouch Verio Flex Meter TEST BLOOD SUGAR ONCE DAILY AND FOR SYMPTOMS OF LOW BLOOD SUGAR active Not Available Not Available No t Available Humira(CF) Pen 40 mg/0.4 mL subcutaneo us kit 05/13 completed Not Available Not Available Not Available Humira(CF) Pen Crohn's-Ul c Colitis-Hi d Sup Strt 80 mg/0.8 mL subcut kt 10/16 completed rx by derm Not Available Not Available Not Available OneTouch Delica Plus Lancet 30 gauge TEST BLOOD SUGAR ONCE DAILY AND NEEDED FOR SYMPTOMS OF LOW BLOOD SUGAR active Not Available Not Available No t Available Ozempic 1 mg/dose (4 mg/3 mL) subcutaneo us pen injector INJECT 1MG UNDER THE SKIN ONCE WEEKLY 05/13 completed Not Available Not Available Not Available Wegovy 0.5 mg/0.5 mL subcutaneo us pen injector Inject 03.5mg every week by subcutane ous route as directed for 28 days 2023 active Not Available Not Available Not Avai lable Ozempic 2 mg/dose (8 mg/3 mL) subcutaneo us pen injector INJECT 2MG EVERY WEEK BY SUBCUTANE OUS ROUTE DIRECTED FOR 28 DAYS. active Not Available Not Available No t Available Ozempic 0.25 mg or 0.5 mg (2 mg/3 mL) subcutaneo us pen injector INJECT 0.25MG WEEKLY FOR 4 WEEKS THEN INJECT 0.5MG WEEKLY FOR 4 WEEKS 05/13 completed Not Available Not Available Not Available Cosentyx UnoReady Pen 300 mg/2 mL (150 mg/mL) subcutaneo us active Not Available Not Available Not Available Vitals Date Recorded Body height Body mass index (BMI) Body weight Body temperature Respiratory rate Heart rate Systolic blood pressure Diastolic blood pressure Provider Name and Address Organization Details Last Updated DateTime 4 177.8 cm 55.7 kg/m2 881538. 84 g 97.7 [degF] 20 /min 82 /min 118 mm[Hg] 82 mm[Hg] CHARANJIT JOHNSON LPN [facility] 4 15:35:56 Date Recorded Body height Body mass index (BMI) Body weight Body temperature Oxygen saturation Oxygen saturation in Arterial blood by Pulse oximetry Heart rate Systolic blood pressure Diastolic blood pressure Provider Name and Address Organization Details Last Updated DateTime 4 177.8 cm 57 kg/m2 303211. 27 g 97.6 [degF] 99 % 99 % 95 /min 122 mm[Hg] 89 mm[Hg] Kelly Clark [facility] 4 13:05:33 Date Recorded Body height Body mass index (BMI) Body weight Body temperature Oxygen saturation Oxygen saturation in Arterial blood by Pulse oximetry Respiratory rate Heart rate Systolic blood pressure Diastolic blood pressure Provider Name and Address Organization Details Last Updated DateTime 4 177.8 cm 57.8 kg/m2 610245. 73 g 98.1 [degF] 98 % 98 % 18 /min 90 /min 122 mm[Hg] 78 mm[Hg] CHARANJIT JOHNSON LPN [facility] 4 07:40:44 Date Recorded Body height Body mass index (BMI) Body weight Heart rate Oxygen saturation Oxygen saturation in Arterial blood by Pulse oximetry Body temperature Systolic blood pressure Diastolic blood pressure Provider Name and Address Organization Details Last Updated DateTime 4 177.8 cm 57.1 kg/m2 096168. 16 g 90 /min 97 % 97 % 97.7 [degF] 129 mm[Hg] 79 mm[Hg] Kelly Clark MA [facility] 4 08:00:38 Date Recorded Body height Body mass index (BMI) Body weight Body temperature Oxygen saturation Oxygen saturation in Arterial blood by Pulse oximetry Heart rate Systolic blood pressure Diastolic blood pressure Provider Name and Address Organization Details Last Updated DateTime 4 177.8 cm 57.1 kg/m2 093288. 46 g 97.3 [degF] 97 % 97 % 93 /min 131 mm[Hg] 78 mm[Hg] Kelly Clark MA [facility] 08:01:59 Social History Question Answer Notes LastModified by Organizat ion Details LastModified Time Tobacco Smoking Status Never Smoker CHARANJIT JOHNSON LPN [facility], [place] - [facility] 02/19/2024 07:41:41 What Was The Date Of Your Most Recent Tobacco Screening? 02/19/2024 Information not available 02/19/2024 Has Tobacco Cessation Counseling Been Provided? No Information not available 02/19/2024 Do You Or Have You Ever Used Any Other Forms Of Tobacco Or Nicotine? No Information not available 02/19/2024 Sex: Male Functional Status None recorded. Mental Status None recorded. Family History Relationship Description Onset Age of this Age Resolved Age Notes LastModified by Organization Details LastModified Time Father Family history of psychotic illness bipola r [email or web address] Not available 08/03/2023 03:57:04 Maternal Grandfather Family history of diabetes mellitus type 1 [email or web address] Not available 2022 03:57:04 Maternal Grandmother Family history of diabetes mellitus type 1 [email or web address] Not available 2022 03:57:04 Medical History No medical history recorded. Immunizations Vaccine Type Date Status Provider Name and Address Organization Details Recorded Time Tdap 10/21/2020 completed Not Available [facility] 05:20:14 Tdap 07/15/2015 completed Not Available [facility] 05:20:15 SARS-COV-2 (COVID-19) vaccine, UNSPECIFIED 12/01/2020 completed Not Available [facility] 08/03/2023 05:20:17 SARS-COV-2 (COVID-19) vaccine, UNSPECIFIED 12/29/2020 completed Not Available [facility] 08/03/2023 05:20:17 SARS-COV-2 (COVID-19) vaccine, UNSPECIFIED 06/05/2022 completed Not Available [facility] 08/03/2023 05:20:18 SARS-COV-2 (COVID-19) vaccine, UNSPECIFIED 07/18/2021 completed Not Available [facility] 08/03/2023 05:20:18 influenza, unspecified formulation 10/21/2000 completed Not Available [facility] 08/03/2023 05:20:19 influenza, unspecified formulation 06/05/2022 completed Not Available [facility] 08/03/2023 05:20:19 influenza, unspecified formulation 06/30/2021 completed Not Available [facility] 08/03/2023 05:20:19 influenza, unspecified formulation 08/03/2020 completed Not Available [facility] 08/03/2023 05:20:19 Influenza, split virus, quadrivalent, PF 07/19/2023 completed Not Available [facility] 10/05/2023 05:30:53 Pneumococcal conjugate PCV20, polysaccharide GCN295 conjugate, adjuvant, PF 07/19/2023 completed Not Available [facility] 10/05/2023 05:30:54 COVID-19, mRNA, LNP-S, PF, henny-sucrose, 30 mcg/0.3 mL 08/18/2023 completed RICHARDSON HERNÁNDEZ, [place] [facility] 11/19/2023 15:36:17 Past Encounters Encounter ID Performer Location Encounter Start Date Encounter Closed Date Diagnosis/Indication Diagnosis SNOMED-CT Code Diagnosis ICD10 Code [id number] XIAO TREVIZO [facility] [address] [place] [id number] 10/16/2023 13:52:57 10/16/2023 14:34:50 Type 2 diabetes mellitus without complication 385962556 E11.9 Body mass index 40+ - severely obese 082730720 Z68.43 Left Achil les tendinitis 8833548496 05102 M76.62 Bipolar af fective disorder, current episode mixed 185316554 F31.60 Infertilit y due to oligospermia 43020310 N46.129 Obstructiv e sleep apnea syndrome 69684882 G47.33 Hidradenit is suppurativa 82465690 L73.2 [id number] XIAO TREVIZO [facility] [address] [place] [id number] 11/19/2023 15:22:51 11/19/2023 16:10:32 Acute low back pain 685158436 M54.50 [id number] XIAO TREVIZO [facility] [address] [place] [id number] 12/13/2023 12:45:52 12/13/2023 13:30:13 Type 2 diabetes mellitus without complication 775064248 E11.9 Body mass index 40+ - severely obese 413198594 Z68.43 Left Achil les tendinitis 4590181251 85953 M76.62 Bipolar af fective disorder, current episode mixed 602743102 F31.60 Obstructiv e sleep apnea syndrome 61022439 G47.33 Hidradenit is suppurativa 54127076 L73.2 Counseling 078013833 Z71 .9 Z68.43 [id number] XIAO TREVIZO, [facility] [address] [place] [address] 02/19/2024 07:18:34 02/19/2024 08:04:43 Type 2 diabetes mellitus without complication 528818238 E11.9 Body mass index 40+ - severely obese 375868873 Z68.43 Counseling 954895758 Z71 .9 Z68.43 Bipolar af fective disorder, current episode mixed 336556996 F31.60 Obstructiv e sleep apnea syndrome 92138807 G47.33 Hidradenit is suppurativa 66186597 L73.2 Acute low back pain 2788 25046 M54.50 Left Achil les tendinitis 6990185693 93402 M76.62 [id number] XIAO TREVIZO, [facility] [address] [place] [id number] 05/13/2024 07:45:17 05/13/2024 09:16:15 Type 2 diabetes mellitus without complication 590514399 E11.9 Z68.43 Body mass index 40+ - severely obese 031477985 Z68.43 Counseling 173257237 Z71 .9 Z68.43 Bipolar af fective disorder, current episode mixed 345525482 F31.60 Obstructiv e sleep apnea syndrome 72751713 G47.33 Hidradenit is suppurativa 51577238 L73.2 Acute low back pain 2788 23527 M54.50 Left Achil les tendinitis 4267236654 55409 M76.62 [id number] [employer] [facility] [place] [id number] 05/19/2024 07:48:20 05/19/2024 08:19:32 Pain of right wrist 1185550058 69680 M25.531 M25.521 Pain of ri ght elbow joint 6460531321 6852547 M25.521 Health Concerns Section Related Observation LastModified by Organization Detai ls LastModified Time None Recorded Concern Status LastModified by Organization Details LastModified Time None Recorded Advance Directives Directive None Recorded Payers Encounter Date Sequence Insurance Name Policy Number Policy Bueno Covered Member ID Bueno Member ID Guarantor Name 11/19/2023 1 [place] [facility] [id number] Venkata A Pavel 11/19/2023 2 [place] [employer] [employer] Venkata A Pavel [id number] Venkata A Pavel 12/13/2023 1 [place] [facility] Amilcar Pavel [id number] Venkata A Pavel 12/13/2023 2 [place] Venkata A Pavel [id number] Venkata A Pavel 02/19/2024 1 [place] Geena Fitzgerald Pavel [id number] Venkata A Pavel 02/19/2024 2 [place] Venkata A Pavel [id number] Venkata A Pavel 05/13/2024 1 [place] Geena Fitzgerald Pavel [id number] Venkata A Pavel 05/13/2024 2 [place] Venkata A Pavel [id number] Venkata A Pavel 05/19/2024 1 [place] Geena Fitzgerald Pavel [id number] Venkata A Pavel 05/19/2024 2 [place] Venkata A Pavel [id number] Venkata A Pavel Notes Date Note Type Note Provider Name and Address Organization Details Recorded Time 11/19/2023 text/html HPI Notes: [place] hi presents to [facility] today for evaluation of acute left lower back pain. Describes 2 to 3 weeks of symptoms, left lower back ache, worse with certain positional movements, worse in the morning, and slow improvement with activity. Denies any radiating pain down his leg. Denies any recent trauma or injuries, though questions whether lifting heavy objects at work triggered the injury. Denies any loss of bowel or bladder. No recent fevers or chills. Has been on light duty at work. Just reports symptoms were likely triggered by lifting Medical history includes bipolar 1 disorder, NIA on CPAP, DMT2, and obesity. Followed by [facility] for bipolar disorder. Recently established with urology for infertility counseling, oligozoospermia, and erectile dysfunction. 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 11/24/2023 07:33:14 12/13/2023 text/html HPI Notes: [place] hi presents to [facility] for chronic care follow up, with a focus on diabetes and obesity. Medical history includes bipolar 1 disorder, NIA on CPAP, DMT2, and obesity. Followed by [facility] for bipolar disorder. 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 No longer working at [email or web address]. [employer] [address], [place], [address], [facility], [facility]. 12/13/2023 13:35:02 02/19/2024 text/html HPI Notes: [place] hi presents to [facility] for chronic care follow up, with a focus on diabetes and obesity. Medical history includes bipolar 1 disorder, NIA on CPAP, DMT2, and obesity. Followed by [facility] for bipolar disorder. 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 No longer working at [email or web address]. [employer] [address], [place], [address], [facility]. 02/20/2024 09:16:30 05/13/2024 text/html HPI Notes: [place] hi presents to [facility] today for a 3 month chronic care follow up, with a focus on diabetes and obesity. Medical history includes bipolar 1 disorder, NIA on CPAP, DMT2, and obesity. Followed by [facility] for bipolar disorder. 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 [employer] [address], [place], [address], [facility], [facility]. 05/13/2024 09:13:51 05/19/2024 text/html HPI Notes: [place] hi presents the [facility] today for Worker's Comp. appointment? right wrist pain, elbow pain, status post fall approximately 2 months ago. Describes slip/trip while walking with a client, landing on his right side with his right arm outstretched (?). Initial discomfort to his shoulder, elbow, wrist. Slow improvement over the past 2 months. However, lingering pain with his wrist, mild pain to his elbow. Pain to shoulder has resolved. Venkata is right-hand dominant. Denies any notable history of injuries to his wrist. Reports he has notified HR at [facility] regarding Worker's Comp. appointment. [employer] [address], [place], [address], [facility], [facility]. 05/19/2024 08:35:20
--- OUTSIDE RECORDS SUMMARY | 2024-06-16 15:22 | XMS_ITS | Encounter Summary ---
[place] [address] Care Team Providers Care Studio Potter Name Role Phone Jeanne Trevizo APRN Primary Care Provider [phone] Reason for Visit * Reason Comments Prior Authorization Cosentyx Unoready 30 0mg/2mL SOAJ Encounter Details Date Type Department Care Team (Late st Contact Info) Description 01/10/2024 Specialty [place] [address] Anjel Jimenez, [facility] Social History Tobacco Use Types Packs/Day Years Used Date Smoking Tobacco: Never Smokeless Tobacco: Never Alcohol Use Standard Drinks/Week Comments Yes 0 (1 standard drink = 0.6 oz pur e alcohol) occasional Sex and Gender Information Value Date Recorded Sex Assigned at Not on file Gender Identity Not on file Sexual Orientation Not on file documented as of this encounter Progress Notes * Anjel Jimenez - 01/10/2024 10:44 AM EDT [facility], Medication Prior Authorization Submission Patient: Venkata Zhao Patient : 1985 Patient Address: [address] [address] (home) Medication Name: COSENTYX UNOREADY PEN 300 MG/2 ML (150 MG/ML) SUBCUTANEOUS Medication ID: Subscriber Insurance: [facility] Subscriber Insurance Comment: Fax: Physician: ROSANNA LIRIANO Physician Comment: Sent Via: [facility] Negron: BPETPTNC Ref/Case/PA#: Medication Strength Frequency Requested: Cosentxy Unoready 300mg/2mL SOAJ. Inject the contents of one pen (300mg) SQ at weeks 0,1,2,3 and 4, then one pen (300mg) SQ every 4 weeks thereafter. Qty/Day Supply: 05/21 New Start: New to Therapy Diagnosis & ICD-10 Code: Hidradenitis Suppurativa L73.2 Patient Notified: No Submission Notes: None Anjel Jimenez 01/10/24 10:47 AM * Anjel Jimenez - 01/10/2024 10:44 AM EDT [facility], Prior Authorization Approval Medication Name: COSENTYX UNOREADY PEN 300 MG/2 ML (150 MG/ML) SUBCUTANEOUS Medication ID: Approval Dates: 01/10/2024 to 07/11/2024 Insurance requirements/notes: None Other Notes: None Case/Reference #: [id number] Approval notification Received via: Fax Copay: $ 0.00 Copay assistance: None Copay Notes: Insurance mandated Pharmacy: [facility] Fillable at [facility]: Yes Patient Notified: No Pharmacy staff will be reaching out to the patient to inform them of their medication[facility]. If applicable, a pharmacist will speak with the patient to offer our specialty pharmacy services and to arrange delivery of their medication. Anjel Jimenez 01/10/24 3:51 PM documented in this encounter Plan of Treatment Not on file documented as of this encounter Visit Diagnoses Not on filedocumented in this encounter Care Teams Studio Potter Relationship Specialty Start Date End Date Jeanne Trevizo, CONCR[employer] ENGINE[employer] [place] [address] PCP - General Family Medicine 01/20/22 documented as of this encounter
--- OUTSIDE RECORDS SUMMARY | 2024-06-16 15:22 | XMS_ITS | Encounter Summary ---
Author Organization [facility] [place] [address] Care Team Providers Care Softball Coach Name Role Phone Jeanne Trevizo APRN Primary Care Provider [phone] Reason for Visit * Reason Comments Specialty Pharmacy Review Encounter Details Date Type Department Care Team (Late st Contact Info) Description 07/04/2023 Specialty [place] [id number] Brad Lee, [facility] Social History Tobacco Use Types Packs/Day Years Used Date Smoking Tobacco: Never Smokeless Tobacco: Never Alcohol Use Standard Drinks/Week Comments Yes 0 (1 standard drink = 0.6 oz pur e alcohol) occasional Sex and Gender Information Value Date Recorded Sex Assigned at Not on file Gender Identity Not on file Sexual Orientation Not on file documented as of this encounter Progress Notes * Brad Lee - 07/04/2023 11:59 PM EDT The [facility] has completed a benefits investigation for Venkata Zhao to review their eligibility to fill at [facility]. Per patient's medication list they are prescribedHUMIRA(CF) PEN 40 MG/0.4 ML and the medication is currently filled through the [facility]. documented in this encounter Plan of Treatment Not on file documented as of this encounter Visit Diagnoses Not on filedocumented in this encounter Care Teams Softball Coach Relationship Specialty Start Date End Date Jeanne Trevizo APRN [address] [place] [address] PCP - General Family Medicine 01/20/22 documented as of this encounter
--- OUTSIDE RECORDS SUMMARY | 2024-06-16 15:22 | XMS_ITS | Encounter Summary ---
Author Organization [facility] [place] [address] Care Team Providers Care Manager Rfid Name Role Phone Santhosh, Jeanne Flood APRN Primary Care Provider [phone] Encounter Details Date Type Department Care Team (Late st Contact Info) Description 07/04/2023 11:20 AM EDT Office Visit Dermatology at [facility] [address] [place] [address] Josse Cantor MD [facility] DR [address] [address] Hidradenitis suppurativa; EIC (epidermal inclusion cyst) Social History Tobacco Use Types Packs/Day Years Used Date Smoking Tobacco: Never Smokeless Tobacco: Never Alcohol Use Standard Drinks/Week Comments Yes 0 (1 standard drink = 0.6 oz pur e alcohol) occasional Sex and Gender Information Value Date Recorded Sex Assigned at Not on file Gender Identity Not on file Sexual Orientation Not on file documented as of this encounter Progress Notes * Josse Cantor MD - 07/04/2023 11:20 AM EDT Images from the original note were not included. DEPARTMENT OF DERMATOLOGY Medical Dermatology Clinic Provider: Josse Cantor MD Patient's preferred name Venkata Preferred contact method for results [x]Phone []myD-H []Letter Detailed phone message OK? Yes Are there any other people with whom we may discuss your care? No Past Medical History Date, location, treatment Melanoma No Dysplastic nevi No SCC No BCC No AKs No UV Exposure & Protection No Other relevant past medical history + Bipolar Disorder + NIA Family History Details Melanoma No NMSC No Other relevant family history No Social History Occupation: Hobbies: Other: Pre-Procedure Screening Details Allergy to lidocaine, epinephrine, Dermabond, chlorhexidine, or adhesives No Bleeding disorder or blood thinners No Implanted devices (Pacemaker, defibrillator, deep brain stimulator, cochlear implant) No History of Present Illness: Venkata Zhao is a 38 y.o. Patient returns to clinic today for a follow up of hidradenitis suppurativa. Patient reports the following: - Three weeks prior to today's visit patient missed his does of humira, patient has since received his missed dose and has since continued humira and HS has greatly overall improved. Last visit at Dermatology: 03/28/2023 Last visit with this provider: 03/28/2023 Medications: Reviewed in eD-H Allergies: Reviewed in eD-H Skin Examination: Focused skin examination of the bilateral axilla was normal with the exception of the findings below. Assessment/Plan # Hidradenitis Suppurativa, Coppola Stage 2 -Significant PIH and scarring. - Discussed treatment options (topical, oral antibiotics, ILK) - S/p Rx: Clindamycin Lotion - apply topically 1-2x a day to affected area - Continue OTC benzoyl peroxide wash such as Panoxyl - s/p: Doxycycline 100mg BID x 6 months - Continue Rx Humira (Adalimumab) as prescribed by [facility]. -risk and benefits of the medication were discussed. Pt denies hx of exposure to TB, hx. of Hepatitis B or C infection, liver cirrhosis or lymphoma - Follow up in 9 months for repeat Quant gold #. Lipoma vs EIC - roughly 2cm poorly defined subcutaneous nodule on the upper back left of mid line. (Figure 1) - Discussed benign nature of lesion and provided reassurance. - Discussed that definitive treatment would require surgical excision. Referral sent on 03/28/2023. - Photo obtained during today's visit Figure 1 Photo(s) taken and charted with patient's verbal consent. Other: N/A RTC: 9 months for HS []Note routed to special education secretary [x]Recall placed in scheduling system []Appointment scheduled at checkout Scribe attestation: Emmett Edwards has performed the documentation for this encounter in the presence of and acting as a scribe for Josse Cantor MD. I performed the above scribed service and agree with the accuracy of the documentation in this encounter. Reviewed and signed by: Josse Cantor MD Dermatology [facility] Patient seen and evaluated with staff community educator: Steph Flood. MD [facility] * Steph Chavez MD - 07/04/2023 11:20 AM EDT I directly supervised Josse Cantor MD in the care of this patient. I saw and evaluated this patient with Josse Cantor MD. Josse Cantor MD presented the history and physical exam details to me, then we saw the patient together, and I confirmed these findings.I agree with details as written. My physical examination confirms Josse Cantor MD's findings. The assessment and plan were formulated in discussion with me at the time of visit, and I agree with them as documented. STEPH CHAVEZ MD Staff [employer] Department of Dermatology [facility] documented in this encounter Plan of Treatment Not on file documented as of this encounter Visit Diagnoses Diagnosis Hidradenitis suppurativa Hidradenitis EIC (epidermal inclusion cyst) Sebaceous cyst documented in this encounter Care Teams Manager Rfid Relationship Specialty Start Date End Date Jeanne Trevizo, [facility] [place] [address] PCP - General Family Medicine 01/20/22 documented as of this encounter
--- OUTSIDE RECORDS SUMMARY | 2024-06-16 15:22 | XMS_ITS | Encounter Summary ---
[place] [address] Care Team Providers Care Schedule Planning Manager Name Role Phone Jeanne Trevizo APRN Primary Care Provider [phone] Encounter Details Date Type Department Care Team (Latest Contact Info) Description 06/11/2024 Specialty [place] [address] Fransico Shankar [facility] Started Refill Coordination - 28 day recurrence (secukinumab) for Dermatology Social History Tobacco Use Types Packs/Day Years Used Date Smoking Tobacco: Never Smokeless Tobacco: Never Alcohol Use Standard Drinks/Week Comments Yes 0 (1 standard drink = 0.6 oz pur e alcohol) occasional Sex and Gender Information Value Date Recorded Sex Assigned at Not on file Gender Identity Not on file Sexual Orientation Not on file documented as of this encounter Plan of Treatment Not on file documented as of this encounter Visit Diagnoses Not on filedocumented in this encounter Care Teams Schedule Planning Manager Relationship Specialty Start Date End Date Jeanne Trevizo APRN [address] [place] [address] PCP - General Family Medicine 01/20/22 documented as of this encounter
--- OUTSIDE RECORDS SUMMARY | 2024-06-16 15:22 | XMS_ITS | Encounter Summary ---
Author Organization [facility] [place] [address] Care Team Providers Care Aquaculture Farmer Name Role Phone Jeanne Trevizo APRN Primary Care Provider [phone] Encounter Details Date Type Department Care Team (Latest Contact Info) Description 07/04/2023 Travel Social History Tobacco Use Types Packs/Day Years [...] on filedocumented in this encounter Care Teams Aquaculture Farmer Relationship Specialty Start Date End Date Jeanne Trevizo [place] [address] [place] [address] PCP - General Family Medicine 01/20/22 documented as of this encounter
--- OUTSIDE RECORDS SUMMARY | 2024-06-16 15:22 | XMS_ITS | Encounter Summary ---
[facility] [place] [address] Care Team Providers Care Minister Name Role Phone Jeanne Trevizo APRN Primary Care Provider [phone] Reason for Visit * Reason Comments Medication Refill Medication Management Patient Education Encounter Details Date Type Department Care Team ([facility] st Contact Info) Description 04/24/2023 Specialty [place] [id number] Harry Aranda, [facility] Social History Tobacco Use Types Packs/Day [...] as of this encounter Progress Notes * Harry Aranda [facility] - 04/24/2023 9:17 AM EDT Specialty Pharmacy Follow Up Consultation; Harry Aranda [facility] Comprehensive Medication Management (CMM) Venkata Zhao Diagnosis: HS Therapy Start Date: 04/06/2023 Contact in person or via telephone:Telephone Mr. Venkata Zhao is a 38 y.o. (1985) male who was contacted in regard to specialty medication. Spoke with patient regarding HUMIRA. A review of the medication therapy was performed. The medication was Refilled as scheduled, and all medication related questions and concerns were addressed. The specialty pharmacy staff will follow up with the patient 5-7 days prior to next refill. Is the patient willing to proceed with the Clinical Assessment? Yes Summary and Recommendations: Mr. Venkata Zhao is a 38 y.o. male who was contacted for a refill and consultation on Humira for the treatment of HS. Medications, allergies, and medical conditions were reviewed with no changes.Proper injection technique was reviewed including rotation of injection sites, storage, room temperature administration and safe disposal of the injection device. Venkata Zhao reports no missed doses since his last fill and denies experiencing side effects to the medication. A summary of Specialty Pharmacy's services was provided. Venkata states he has not had any significant issues with injections. He notes that for his first injection he may not have held the device in place long enough because a few drops leaked out, but he was successful with the subsequent injections and feels confident in his ability to administer the medication. Venkata reports he started to notice a difference in his skin after his first dose and that at this time, his skin is nearly clear. Patient did not have any questions or concerns at the end of our encounter. Clinic follow-up needed: yes - 07/04/2023 Allergies and Drug intolerance: Allergies Allergen Reactions Latex, Natural Rubber Problem List: Patient Active Problem List Diagnosis Code Bipolar 1 disorder F31.9 NIA (obstructive sleep apnea) G47.33 Special Dietary or Hydration Requirements: no Medication Reconciliation Discrepancies (compared to [facility] med list) no Medication List: Current Outpatient Medications Medication Sig Dispense Refill adalimumab (Humira,CF, Pen Cnufki-RG-SO) 80 mg/0.8 mL Pen Injector Kit Inject the contents of two pens (160 mg) under the skin once on day 1, then inject the contents of one pen (80 mg) once on day 15. Starting on day 29 inject the contents of one pen (40 mg) once weekly thereafter 1 kit 0 adalimumab (Humira,CF, Pen) 40 mg/0.4 mL Pen Injector Kit Inject 0.4 mLs subcutaneously once a week. After completing the starter pack 1.6 mL 5 doxycycline monohydrate (Monodox) 100 mg capsule TAKE ONE CAPSULE BY MOUTH ONCE A DAY 60 capsule 0 clindamycin (CLEOCIN T) 1 % Lotion APPLY TO THE AFFECTED AREA(S) TOPICALLY 1 TO 2 TIMES DAILY 60 mL0 lithium 600 mg Capsule Take 2 capsules by mouth nightly. 180 capsule 0 Melatonin 5 mg Capsule Take 2 capsules by mouth nightly. Take 2 at bedtime 180 capsule 0 cholecalciferol, Vitamin D3, 25 mcg (1,000 unit) Capsule Take 1 capsule by mouth daily. 90 capsule 0 LORazepam (Ativan) 0.5 mg Tablet Take 0.5 mg by mouth every 6 hours as needed for Anxiety. buPROPion SR (Wellbutrin SR) 100 mg tablet sustained-release 12 hr Take 100 mg by mouth every morning. No current facility-administered medications for this visit. Most Recent Vitals: Ht Readings from Last 1 Encounters: 11/02/21 180.3 cm (5' 11) Wt Readings from Last 3 Encounters: 11/02/21 (!) 186.4 kg (411 lb) Temp Readings from Last 3 Encounters: 11/02/21 36.9 ??C (98.5 ??F) BP Readings from Last 3 Encounters: 11/02/21 139/68 Pulse Readings from Last 3 Encounters: 11/02/21 86 There is no height or weight on file to calculate BMI. Pertinent Lab values: Lab Results Component Value Date NA 141 03/28/2023 K 4.1 03/28/2023 CL 107 03/28/2023 CO2 22 03/28/2023 BUN 17 03/28/2023 CREATININE 0.93 03/28/2023 GLUCOSE 151 03/28/2023 CALCIUM 9.6 03/28/2023 Lab Results Component Value Date ALT 19 03/28/2023 AST 14 03/28/2023 ALKPHOS 84 03/28/2023 BILITOT 0.9 03/28/2023 ALBUMIN 4.7 03/28/2023 PROT 6.7 03/28/2023 Lab Results Component Value Date WBC 8.5 03/28/2023 HGB 15.5 03/28/2023 HCT 47.0 03/28/2023 MCV 87.0 03/28/2023 PLATELET 208 03/28/2023 No results found for: HA1C Immunization History Administered Date(s) Administered Influenza Vaccine PF, Quadrivalent 05/30/2021 Influenza Vaccine, Unspecified Formulation 08/03/2020 Tdap Vaccine 07/15/2015 Assessment and Recommendations: Patient Counseling Patient informed of specialty services: Yes Patient accepted offer to international student counselor: adherence/missed doses, cost of medications/cost implications, doses and administration, possible drug/OTC drug and food interactions, possible adverse side effects and management, pharmacy contact information, lab monitoring/follow up, possible drug/Rx drug interactions, safe handling, storage, and disposal, therapeutic rationale Medication Management Summary Topics discussed: reviewed medication changes since last visit, medication safety precautions education provided, drug interaction education provided to patient, safe handling, storage, and disposal discussed, possible adverse effects and management discussed, lab monitoring and follow-up discussed, cost of medications and cost implications discussed, adherence and missed doses discussed, health goals discussed, monitoring medication discussed, over the counter products discussed, start medication discussed, timing of medications discussed Time spent: 1-15 min Treatment Outcomes 03/28/2023 1540 Disease progression: Stable Patient Overall Status: Stable Reviewed in detail with patient: Dose appropriateness based on recommended standard dosing Current medication list including OTC medications Medication and disease problems Allergies Comorbid conditions/ Problem List Past adverse events if any Special needs of the patient including physical and cognitive limitations Goals of therapy and management strategies Warnings, precautions, and contraindications Side effects Drug-drug and drug-food interactions Administration instructions including dose, frequency and method Handling, storage, and disposal Verifying expiration dates on products before use Rotating medication inventory to use oldest product first Relevant lab data Treatments impact on disease Dose appropriateness based on recommended standard dosing schedule, including any variations from FDA approved dosing Patient verbalizes understanding and is able to read-back instructions on self-administration/injection, proper storage, drug stability, importance of adherence and management strategies, side effect avoidance and mitigation strategies, and interruptions in therapy: Yes Patient is aware a licensed pharmacist is available 24 hours a day, 7 days a week to discuss medication-related questions or concerns: Yes Patient verbalizes understanding of the common side effect profile of their medication. The patient is able to call 911 or seek urgent care if signs/symptoms of allergy or harmful adverse reactions occur: Yes Additional care/services needed: No Additional equipment/supplies required: Yes If yes, explain: sharps container Patient satisfied with care/services provided: Yes Specialty Assessment: Physical and Cognitive Assessment: Functional limitations identified: No Cognitive limitations identified: No Concern regarding orientation/memory: No Concern with reasoning/judgement: No Is patient a fall risk: No Social Assessment: Does patient have a primary career services officer: No Does patient have an emergency contact on file: Yes Does patient need referral to clinical social worker: No Does patient need referral to advocacy group: No Home Health Assessment: Is the patient in a safe home environment?: Yes Is the patient able to store their medication as directed?: Yes Does the patient have a support network at home?: Yes Reviewed potential home safety hazards with patient: Yes Economic Assessment: Patient is agreeable to medication copay: Yes Actual Copay: $: 0 Days Supply: 28 Welcome Packet and Rights and Responsibilities: Patient provided welcome packet/rights and responsibilities: Yes Specialty Med Adherence Patient Demonstrates Understanding of Importance of Adherence: Yes Educational Information or Adherence Tools Provided: Yes How many doses does patient have remaining at home?: 0 Patient Reported X Missed Doses in the Last Month: 0 Provider-Estimated Medication Adherence Level: 90-100% Adherence Tools Used: directed education, calendar Therapy Assessment: Current Medication Dosing/Route/Frequency: Humira Pen 40mg/0.4mL PNKT Inject the contents of one pen (40 mg) subcutaneously once every 7 days Appropriate Therapy: Yes Effective: Yes Current Affected Areas: Thighs Improving Affected Areas: Thighs Worsening Affected Areas: MA Total BSA involved: unknown Recent Skin Exacerbations/Flaring: no Recent Topical Corticosteroid Use: no Relapsing/Remitting Factors: no Patient-Reported Side Effects: no Recent Infections: no Counseling: Utilizing appropriate injection technique: yes - reviewed with patient Rotation of Injection Sites: Yes Room Temperature Medication at Time of Injection: Yes Treatment Outcome: Therapy continued Patient Goals: Patient's specific desired goal: Skin healing and reduction of symptoms Measured by: Patient reported symptoms, BSA involvement, provider assessment Time-frame to meet goal: 6 months Is the patient on track to achieve goals of therapy? Yes If no, what are the barriers and action plan to reach the goal: N/A On a scale of 1-10 the patient rates their quality of life: N/A Care Plan and Interventions: Care Plan Reviewed and Approved by both Pharmacist and Patient: Yes Did Care Plan Change? No If yes: Change to plans of care based on: Patient's request: N/A Condition: N/A Response to therapy: N/A Provider request: N/A Follow-up needed: No Interventions (if applicable): no Patient experienced change in condition that affects treatment: no Patient Satisfied with Therapy: yes - notes his skin is nearly clear and started to improve after the first injection Pharmacist follow-up needed: Yes Follow-Up Visit Scheduled: yes - 07/04/2023 Delivery Method: Delivery Patient understands no changes to current drug regimen were made at the appointment and [facility]summary located at top of note) for provider review and follow up. Harry Aranda RPH 04/24/23 9:27 AM documented in this encounter Plan of Treatment Not on file documented as of this encounter Visit Diagnoses Diagnosis Hidradenitis suppurativa Hidradenitis documented in this encounter Care Teams Minister Relationship Specialty Start Date End Date Jeanne [place] [address] PCP - General Family Medicine 01/20/22 documented as of this encounter
--- OUTSIDE RECORDS SUMMARY | 2024-06-16 15:22 | XMS_ITS | Encounter Summary ---
[place] [address] Care Team Providers Care Cloth Bleaching Range Back Tender Name Role Phone Jeanne Trevizo APRN Primary Care Provider [phone] Reason for Visit * Reason Comments Specialty Refill Management humira Encounter Details Date Type Department Care Team (Late st Contact Info) Description 08/24/2023 Specialty [place] [id number] Doreen Brothers, [facility] Social History Tobacco Use Types Packs/Day [...] as of this encounter Progress Notes * Doreen Brothers - 08/24/2023 12:14 PM EST Clinical Management Plan: Refill Specialty Pharmacy Consultation; Doreen Brothers Comprehensive Medication Management (CMM) Venkata Zhao is a 38 y.o. (1985) male who was contacted in regard to a specialty medication refill reminder. Contact made with patient regarding Humira. A review of the medication therapy was performed. The medication was refilled as scheduled, and all medication related questions and concerns were addressed. The specialty pharmacy staff will follow up with the patient 5-7 days priorto next refill. Was a change made to the Care Plan: No Allergies and Drug intolerance: Allergies Allergen Reactions Latex, Natural Rubber Medication Reconciliation Discrepancies (compared to [facility] med list) No Specialty Pharmacy Refill Questionnaire More data exists 08/24/2023 Refill Questionnaire What is the name of the specialty medication you are refilling? humira Are you taking any new medications? No Any new medical condition? No Any new allergies? No Any new side effects that are bothersome? No What date will you need this fill by? 08/31/2023 Adherence: Any missed doses? No Patient understands no changes to current drug regimen were made. Doreen Brothers 08/24/23 12:15 PM documented in this encounter Plan of Treatment Not on file documented as of this encounter Visit Diagnoses Not on filedocumented in this encounter Care Teams Cloth Bleaching Range Back Tender Relationship Specialty Start Date End Date Jeanne Trevizo [place] [address] [place] [address] PCP - General Family Medicine 01/20/22 documented as of this encounter
--- OUTSIDE RECORDS SUMMARY | 2024-06-16 15:22 | XMS_ITS | Continuity of Care Document ---
Author Organization [facility] Address [address] [place] [address] Care Team Providers Care Structural Engineer Name Role Phone XIAO GAMINO Primary Care Provider Assessment No assessment recorded. Plan of Treatment Reminders Order Date Submit Date Provider Last Modified By Organization Details Last Modified Time Details Appointments Follow Up 30 2023 08:00A M Not available Not available Not available Lab None recorded . Referral None recorded . Procedures None recorded . Surgeries None recorded . Imaging None recorded . Medication Orders None recorded . Patient TargetsNo targets recorded. Patient Instructions Encounter Date Encounter Id Patient Instructions Last Modified By Organization Details Last Modified Time 05/19/2024 [id number] Please complete Worker's Comp paperwork. Once we have the paperwork complete, I will order an xray of your wrist + place a physical therapy referral for both your wrist and elbow. Please call with questions. [email or web address] Not available 05/19/2024 08:12:31 Reason for Referral Physical Therapist Referral for Acute low back pain Referring Physician: Xiao Gamino, Family Medicine, Encounter Date: 02/19/2024 Senior Master Scheduler/dietitian Refer ral for Body mass index 40+ - severely obese Referring Physician: Xiao Gamino Family Medicine, Encounter Date: 05/13/2024 Results Created Date Observation Date Name Description Value Unit Range Abnormal Flag Note LastModifiedBy Organization Detail LastModifiedTime 06/09/20 24 02/03/2022 imagi ng/di agnos tic resul t No observ ation record ed. [email or web address] Not Available 06/09 01:27:06/09/20 24 02/03/2022 imagi ng/di agnos tic resul t No observ ation record ed. [email or web address] Not Available 06/09 01:27:10 06/09/20 24 02/03/2022 imagi ng/di agnos tic resul t No observ ation record ed. [email or web address] Not Available 06/09 01:27:27 Result Notes None recorded. Problems Name Problem SNOMED Code Status Onset Date Resolution Date Notes Provider Name and Address Organization Details Recorded Time Anxiety 98662041 Completed 202110/19/2023 Problem Code: F41.8; Problem Code Type: ICD-10; [facility] [address], [facility] [address] , [facility] 18:59:33 Severe obesity 62576905719 104 Completed 202110/19/2023 01/15/20 22 - Comments only - Xiao FELIZ - BMI 59.6. We will continue to assess and review treatmen t strategi es at subseque nt visits. Problem Code: E66.01; Problem Code Type: ICD-10; [address], [facility] [address] , [facility] 18:58:01 Bipolar affectiv e disorder , current episode mixed 596783935 Active [address], [facility] [address] , [facility] 18:59:38 Obstruct tawnya sleep apnea syndrome 21923436 Active [address], [facility] [address] , [facility] 18:59:55 Nondepen dent cannabis [facility] 972857[facility] Active [address], [facility] [address] , [facility] 4 18:59:52 Adult health examinat ion Completed 202110/19/2023 07/10/20 - Comments only - Xiao FELIZ - Recently received his COVID and influenz a boosters through his local pharmacy . Problem Code: Z00.00; Problem Code Type: ICD-10; [address], [place], [address] , [facility] 4 18:57:04 Follicul ar cysts of skin and subcutan eous tissue 540769792 Completed 202101/15/2022 Problem Code: L72.9; Problem Code Type: ICD-10; Not Available [facility] 3 05:51:19 Therapeu tic drug monitori ng assay 90908782 Completed 202110/19/2023 Problem Code: Z51.81; Problem Code Type: ICD-10; [address], [place], [address] , [facility] 4 18:59:04 Increase d frequenc y of urinatio n 760745131 Completed 202110/19/2023 07/10/20 22 - Comments only - Xiao FELIZ - No acute findings with prior work-up. Patient contribu kristina to frequent hydratio n througho ut the day. Continue to monitor. 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 Plan for recheck at 6-month follow-u p. Problem Code: R73.9; Problem Code Type: ICD-10; [address], [place], [place], [address] [place] [address] , [facility] 18:59:13 Infertil ity study Completed 202110/19/2023 Problem Code: Z31.41; Problem Code Type: ICD-10; [address], [place] [address] , [facility] 18:59:28 Infertil ity due to oligospe ia 71322785 Active [address], [place] [address] , [facility] 18:59:49 Type 2 diabetes mellitus without complica tion 749936708 Active [address], [place] [address] , [facility] 18:59:59 Vitamin D deficien 51356871 Active [address], [place] [address] , [facility] 19:00:05 Left Achilles tendinit is 97666061791 9102 Completed 202210/19/2023 Problem Code: M76.62; Problem Code Type: ICD-10; [address], [facility] [address] , [facility] 07:53:14 Hidraden itis suppurat aleksandr 72378090 Active [address], [facility] [address] , [facility] 18:59:46 Cellulit is of toe of left foot 14758492352 052286 Completed 202210/19/2023 Problem Code: L03.032; Problem Code Type: ICD-10; [address], [facility] [address] , [facility] 18:59:21 Cannabis abuse 84981144 Completed 202106/20/2023 Problem Code: F12.10; Problem Code Type: ICD-10; Not Available [facility] 05:51:28 Irritabi lity and anger 185237387 Completed 202107/10/2022 Problem Code: R45.4; Problem Code Type: ICD-10; Not Available [facility] 3 05:51:28 Obesity 563610757 Completed 202103/29/2022 Problem Code: E66.9; Problem Code Type: ICD-10; Not Available [facility] 3 05:51:28 Nondepen dent cannabis abuse in [facility] n 573611085 Completed 202103/29/2022 Problem Code: F12.11; Problem Code Type: ICD-10; [address], [facility] [address] , [facility] 4 18:59:52 Abscess of right lower limb 03020717394 670065 Completed 202103/29/2022 Problem Code: L02.415; Problem Code Type: ICD-10; Not Available [facility] 3 05:51:29 Sleep apnea 79009369 Completed 202106/20/2023 07/10/20 22 - Comments only - Xiao FELZI - NIA on CPAP. Continue to monitor. Cornelius ramirez on nighttim e urinatio n pattern, may reevalua te NIA treatmen t. Problem Code: G47.30; Problem Code Type: ICD-10; Not Available [facility] 3 05:51:31 Abdomina l pain 73282978 Completed 202107/10/2022 Problem Code: R10.9; Problem Code Type: ICD-10; Not Available [facility] 05:51:34 Counseli ng Completed 202103/29/2022 Problem Code: Z71.89; Problem Code Type: ICD-10; [facility] [address], [facility] [address] , [facility] 4 13:31:52 Ing[place] g nail 832426255 Completed 202207/22/2023 Problem Code: L60.0; Problem Code Type: ICD-10; Not Available [facility] 4 05:37:02 Otitis media of left ear 46998248142 23559 Completed 202208/11/2023 Problem Code: H66.92; Problem Code Type: ICD-10; Not Available [facility] 4 05:37:03 Cough 32611652 Completed 202208/11/2023 Problem Code: R05.8; Problem Code Type: ICD-10; Not Available [facility] 4 05:37:03 Left Achilles tendinit is 67735995024 9102 Completed 202202/19/2024 [address], [facility] [address] , [facility] 4 07:53:14 Acute low back pain 627321127 Active 2023 Tia Kathryn caitlin, [facility] 4 05:58:52 Counseli barbara Active 2023 Obesity BMI [address], [place], [address] , [facility] 4 13:31:51 Left Achilles tendinit is 25895266781 9102 Active 2023 Acute on chronic [address], [facility] [address] , [facility] 4 07:53:14 Pain of right wrist 06064624877 9100 Active 2023 - WORKER'S COMP [address], [facility] [address] , [facility] 4 08:35:11 Pain of right elbow joint 13646390671 775204 Active 2023 - WORKER'S COMP [address], [place], [address] , [facility] 4 08:35:05 Notes:Some problems listed i n Documents: #[id number], #[id number] could not be added to this patient's chart. Please review these documents and add these problems to the patient's chart manually as needed. Problem Notes None recorded. Medical Equipment None Reported. [...] Updated DateTime 4 177.8 cm 57.1 kg/m2 114268. 46 g 97.3 [degF] 97 % 97 % 93 /min 131 mm[Hg] 78 mm[Hg] Kelly Clark MA [facility] 4 08:01:59 Social History Question Answer Notes LastModified by Organizat ion Details LastModified Time Tobacco Smoking Status Never Smoker RICHARDSON HERNÁNDEZ, [facility] 02/19/2024 07:41:41 What Was The [...] Family history of psychotic illness bipola r [email or web address] Not available 08/03/2023 03:57:04 Maternal Grandfather Family history of diabetes mellitus type 1 [email or web address] Not available 2022 03:57:04 Maternal Grandmother Family history of diabetes mellitus type 1 [email or web address] Not available 2022 03:57:04 Medical History No medical history recorded. Immunizations Vaccine Type Date Status Provider Name and Address Organization Details Recorded Time Tdap 10/21/2020 completed Not Available [facility] 05:20:14 Tdap 07/15/2015 completed Not Available [facility] 05:20:15 SARS-COV-2 (COVID-19) vaccine, UNSPECIFIED 12/01/2020 completed Not Available [facility] 08/03/2023 05:20:17 SARS-COV-2 (COVID-19) vaccine, UNSPECIFIED 12/29/2020 completed Not Available [facility] 08/03/2023 05:20:17 SARS-COV-2 (COVID-19) vaccine, UNSPECIFIED 06/05/2022 completed Not Available [facility] 08/03/2023 05:20:18 SARS-COV-2 (COVID-19) vaccine, UNSPECIFIED 07/18/2021 completed Not Available [facility] 08/03/2023 05:20:18 influenza, unspecified formulation 10/21/2000 completed Not Available [facility] 08/03/2023 05:20:19 influenza, unspecified formulation 06/05/2022 completed Not Available [facility] 08/03/2023 05:20:19 influenza, unspecified formulation 06/30/2021 completed Not Available [facility] 08/03/2023 05:20:19 influenza, unspecified formulation 08/03/2020 completed Not Available [facility] 08/03/2023 05:20:19 Influenza, split virus, quadrivalent, PF 07/19/2023 completed Not Available [facility] 10/05/2023 05:30:53 Pneumococcal conjugate PCV20, polysaccharide PIU065 conjugate, adjuvant, PF 07/19/2023 completed Not Available [facility] 10/05/2023 05:30:54 COVID-19, mRNA, LNP-S, PF, henny-sucrose, 30 mcg/0.3 mL 08/18/2023 completed RICHARDSON HERNÁNDEZ, [place] [facility]. 11/19/2023 15:36:17 Past Encounters Encounter ID Performer Location Encounter Start Date Encounter Closed Date Diagnosis/Indication Diagnosis SNOMED-CT Code Diagnosis ICD10 Code [id number] [facility] [address] [place] [address] 05/13/2024 07:45:17 05/13/2024 09:16:15 Type 2 diabetes mellitus without complication 747791828 E11.9 Z68.43 Body mass index 40+ - severely obese 657849502 Z68.43 Counseling 638826248 Z71 .9 Z68.43 Bipolar af fective disorder, current episode mixed 915688289 F31.60 Obstructiv e sleep apnea syndrome 50575929 G47.33 Hidradenit is suppurativa 27016639 L73.2 Acute low back pain 2788 15707 M54.50 Left Achil les tendinitis 3217352360 59994 M76.62 [id number] XIAO GAMINO, TRAY [address] [place] [address] 05/19/2024 07:48:20 05/19/2024 08:19:32 Pain of right wrist 1550883720 78787 M25.531 M25.521 Pain of ri ght elbow joint 1919681298 6637204 M25.521 Health Concerns Section Related Observation LastModified by Organization Detai ls LastModified Time None Recorded Concern Status LastModified by Organization Details LastModified Time None Recorded Payers Encounter Date Sequence Insurance Name Policy Number Policy Bueno Covered Member ID Bueno Member ID Guarantor Name 05/19/2024 1 [place] [facility] Geena Amilcar Pavel [id number] Venkata Patelahan 05/19/2024 2 [place] [employer] Venkata Zhao [id number] Venkata Amilcar Pavel Notes Date Note Type Note Provider Name and Address Organization Details Recorded Time 05/19/2024 text/html HPI Notes: [place] hi presents the [facility] today for Worker's Comp. appointment? right wrist [...] wrist. Reports he has notified HR at [facility] regarding Worker's Comp. appointment. XIAO GAMINO, ASSISTANT CORPORATE CONTROLLER [address], [place], [address], [facility]. 05/19/2024 08:35:20
--- OUTSIDE RECORDS SUMMARY | 2024-06-16 15:22 | XMS_ITS | Encounter Summary ---
Author Organization [facility] [place] [address] Care Team Providers Care Waterworks Chief Engineer Name Role Phone Jeanne Trevizo APRN Primary Care Provider [phone] Reason for Visit * Reason Comments Specialty Pharmacy Review Encounter Details Date Type Department Care Team (Late st Contact Info) Description 03/28/2023 Specialty [place] [id number] Brad Lee, [facility] Social History Tobacco Use Types Packs/Day [...] encounter Progress Notes * Brad Lee - 03/28/2023 3:19 PM EDT The [facility] has completed a benefits investigation for Venkata Zhao to review their eligibility to fill at [facility]. Per patient's medication list they are prescribedHUMIRA PEN [id number] HS and the medication is currently filled at the [facility]. documented in this encounter Plan of Treatment Not on file documented as of this encounter Visit Diagnoses Not on filedocumented in this encounter Care Teams Waterworks Chief Engineer Relationship Specialty Start Date End Date Jeanne Trevizo APRN [address] [place] [address] PCP - General Family Medicine 01/20/22 documented as of this encounter
--- OUTSIDE RECORDS SUMMARY | 2024-06-16 15:22 | XMS_ITS | Encounter Summary ---
Author Organization [facility] [place] [address] Care Team Providers Care Clay Press Operator Name Role Phone Jeanne Trevizo APRN Primary Care Provider [phone] Encounter Details Date Type Department Care Team (Late st Contact Info) Description 05/09/[address] [place] [address] Shannan Alfaro MD [facility] DR [address] [address] Social History Tobacco Use Types Packs/Day Years [...] on filedocumented in this encounter Care Teams Clay Press Operator Relationship Specialty Start Date End Date Jeanne Trevizo APRN [facility] [address] [place] [address] PCP - General Family Medicine 01/20/22 documented as of this encounter
--- OUTSIDE RECORDS SUMMARY | 2024-06-16 15:22 | XMS_ITS | Encounter Summary ---
Author Organization [facility] [place] [address] Care Team Providers Care Geophysical Computer Name Role Phone Santhosh Jeanne Flood APRN Primary Care Provider [phone] Encounter Details Date Type Department Care Team (Latest Contact Info) Description 04/11/2024 Specialty [place] [address] Glynn Nunez [facility] Refill Coordination - 28 day recurrence (secukinumab) [...] as of this encounter Progress Notes * Brittaney June [facility] - 04/11/2024 1:08 PM EDT Clinical Management Plan: Refill Specialty Pharmacy Consultation; Brittaney June [facility] Comprehensive Medication Management (CMM) Mr. Venkata Zhao is a 39 y.o. (1985) male who was contacted in regard to a specialty medication refill reminder. The patient requested a refill of Secukinumab. A review of the medication therapy was performed. The medication was refilled as scheduled, and all medication related questions and concerns were addressed. The specialty pharmacy staff will follow up with the patient 5-7 days prior to next refill. Was a change made to the Care Plan: No Medication Therapy Recommendations No medication therapy recommendations to display Allergies and Drug intolerance: Allergies Allergen Reactions Latex, Natural Rubber Medication Reconciliation Discrepancies (compared to [facility] med list) No Review Flowsheet 04/16/2024 12:35 PM Assessment What is the name of the specialty medication you are refilling? Cosentyx Are you taking any new medications? No Any new medical conditions? No Any new allergies? No Any new side effects that are bothersome? No Any missed doses since your last fill? 0 How many doses do you have remaining on hand? 0 Would you like a pharmacist to reach out to you to answer any questions? No What date will you need this fill by? 04/22/2024 Adherence: Any missed doses? No Patient understands no changes to current drug regimen were made. Brittaney June RPH 04/16/24 12:36 PM documented in this encounter Plan of Treatment Not on file documented as of this encounter Visit Diagnoses Not on filedocumented in this encounter Care Teams Geophysical Computer Relationship Specialty Start Date End Date Jeanne Trevizo, OFFICE SERVICES [place] [address] PCP - General Family Medicine 01/20/22 documented as of this encounter
--- OUTSIDE RECORDS SUMMARY | 2024-06-16 15:22 | XMS_ITS | Encounter Summary ---
Author Organization [facility] [place] [address] Care Team Providers Care World History Teacher Name Role Phone Jeanne Trevizo APRN Primary Care Provider [phone] Reason for Visit * Reason Comments Patient Education Encounter Details Date Type Department Care Team (Late st Contact Info) Description 01/09/2024 Specialty Pharmacy Dermatology at [facility] [address] [place] [address] Herb Rebolledo [facility] Social History Tobacco Use Types Packs/Day Years Used Date Smoking Tobacco: Never Smokeless Tobacco: Never Alcohol Use Standard Drinks/Week Comments Yes 0 (1 standard drink = 0.6 oz pur e alcohol) occasional Sex and Gender Information Value Date Recorded Sex Assigned at Not on file Gender Identity Not on file Sexual Orientation Not on file documented as of this encounter Progress Notes * Herb Rebolledo RPH - 01/09/2024 4:13 PM EDT Specialty Pharmacy Initial Consultation; Herb Rebolledo RPH Comprehensive Medication Management (CMM) Venkata Zhao Diagnosis: Hidradenitis Suppurativa Therapy Start Date: TBD - New Start Contact in person or via telephone: In person Mr. Venkata Zhao is a 38 y.o. (1985) male who was contacted in regard to specialty medication. Spoke with patient regarding Cosentyx. A review of the medication therapy was performed. Is the patient willing to proceed with the Clinical Assessment? Yes Summary and Recommendations: Comprehensive review of Cosentyx discussed with the patient. Topics covered include: warnings/precautions & contraindications, patient's dose and frequency of administration, personal indication for use, potential adverse effects, drug &/or food interactions, monitoring/safety parameters, drug MOA, proper storage/handling recommendations, and anticipated time to effect Patient reports no personal hx IBD or Crohn's Disease Education provided on the importance of infection prevention Dose hold parameters were reviewed and patient agrees to contact the clinic if any suspected/known infection, antibiotic treatment, or planned surgeries occur Medication & allergy review completed Patient made aware of the prior authorization process/timeline and was given [facility] if needed. General overview of self-injection process was provided and patient was encouraged to schedule an injection teaching appointment (in-person or telehealth) if they prefer to have first injection completed with medical oversight Clinic follow-up needed: yes - ongoing clinic follow up and lab monitoring. Injection teaching if requested Allergies and Drug intolerance: Allergies Allergen Reactions Latex, Natural Rubber Problem List: Patient Active Problem List Diagnosis Code Bipolar 1 disorder F31.9 NIA (obstructive sleep apnea) G47.33 Special Dietary or Hydration Requirements: no Medication Reconciliation Discrepancies (compared to [facility] med list) -N/A Medication List: Current Outpatient Medications Medication Sig Dispense Refill adalimumab (Humira,CF, Pen) 40 mg/0.4 mL Pen Injector Kit Inject 0.4 mLs subcutaneously once a week. 1.6 mL 5 adalimumab (Humira,CF, Pen Bogmun-RH-QS) 80 mg/0.8 mL Pen Injector Kit Inject the contents of two pens (160 mg) under the skin once on day 1, then inject the contents of one pen (80 mg) once on day 15. Starting on day 29 inject the contents of one pen (40 mg) once weekly thereafter (Patient not taking: Reported on 10/29/2023) 1 kit 0 doxycycline monohydrate (Monodox) 100 mg capsule TAKE [...] HA1C Immunization History Administered Date(s) Administered Influenza Quadrivalent, Preservative Free 05/30/2021 Influenza Unspecified Formulation 08/03/2020 Tdap 07/15/2015 Assessment and Recommendations: Patient Counseling Patient informed of specialty services: Yes Patient accepted offer to child and family counselor: select all, adherence/missed doses, cost of medications/cost implications, doses [...] discussed, health goals discussed, monitoring medication discussed, preventative care discussed, reminder to refill or roll picker medication discussed, self-monitoring discussed, start medication discussed, timing of medications discussed, vaccination discussed, referral needs discussed Treatment Outcomes 01/09/2024 1614 Disease progression: Stable Patient Overall Status: Stable [...] Additional care/services needed: No Additional equipment/supplies required: No Patient satisfied with care/services provided: Yes Specialty Assessment: Physical and Cognitive Assessment: Functional limitations identified: No Cognitive limitations identified: No Concern regarding orientation/memory: No Concern with reasoning/judgement: No Is patient a fall risk: No Social Assessment: Does patient have a primary day care attendant: No Does patient have an emergency contact on file: Yes Does patient need referral to social work coordinator: No Does patient need referral to advocacy group: No Home Health Assessment: Is the patient in a safe home environment?: Yes Is the patient able to store their medication as directed?: Yes Does the patient have a support network at home?: Yes Reviewed potential home safety hazards with patient: Yes Economic Assessment: Patient is agreeable to medication copay: Other (see comments) (Comment: TBD - New Start) Welcome Packet and Rights and Responsibilities: Patient provided welcome packet/rights and responsibilities: Yes Specialty Med Adherence Patient Demonstrates Understanding of Importance of Adherence: Yes Educational Information or Adherence Tools Provided: Yes Adherence Tools Used: directed education, calendar Therapy Assessment: Current Medication Dosing/Route/Frequency: Cosentyx 300mg/2mL Pens Inject the contents of one pen under the skin once on weeks 0, 1, 2, 3, and 4, then once every four weeks thereafter. Appropriate Therapy: Yes Current Affected Areas: left popliteal fossa, axillae Total BSA involved: Not assessed. Coppola Stage 2 Recent Skin Exacerbations/Flaring: yes - many flares since last follow up visit Recent Topical Corticosteroid Use: no Relapsing/Remitting Factors: no Diagnosis of Psoriatic Arthritis: No Patient's Problems/Needs: Alternate treatment for HS and ongoing clinic follow up Expected Outcome: Skin healing and reduction of symptoms Treatment Outcome: Therapy initiated Patient's goals: Patient's specific desired goal: Skin healing and reduction of symptoms, specifically a reduction in the number and frequency of flares Measured by: Patient reported s/sx and provider physical exam Time-frame to meet goal: 6-12 months On a scale of 1-10, what is the patient's overall confidence level with administering this medication? Not assessed Monitoring requirements for prescribed medication: CBC, CMP, Hep B and C, TB test On a scale of 1-10 the patient rates their quality of life: Not assessed Care Plan Reviewed and Approved by both Pharmacist and Patient: Yes Interventions (if applicable): No N/A Pharmacist follow-up needed: Yes Delivery Method: Delivery Patient understands no changes to current drug regimen were made at the appointment and [facility] (summary located at top of note) for provider review and follow up. Herb Rebolledo RPH 01/09/24 4:15 PM documented in this encounter Plan of Treatment Not on file documented as of this encounter Visit Diagnoses Diagnosis Hidradenitis suppurativa Hidradenitis documented in this encounter Care Teams World History Teacher Relationship Specialty Start Date End Date Jeanne Trevizo, RN BSN [address] [place] [address] PCP - General Family Medicine 01/20/22 documented as of this encounter
--- OUTSIDE RECORDS SUMMARY | 2024-06-16 15:22 | XMS_ITS | Encounter Summary ---
[place] [address] Care Team Providers Care Sweater Operator Name Role Phone SanthoshJeanne APRN Primary Care Provider Reason for Visit * Reason Onset Date Comments Prior Authorization 10/04/2023 RX authoriza tion Encounter Details Date Type Department Care Team (Late st Contact Info) Description 10/04/2023 Telephone [place] [id number] Susy Chavez Prior Authorization (RX authorization) Social History Tobacco Use Types Packs/Day Years Used Date Smoking Tobacco: Never Smokeless Tobacco: Never Alcohol Use Standard Drinks/Week Comments Yes 0 (1 standard drink = 0.6 oz pur e alcohol) occasional Sex and Gender Information Value Date Recorded Sex Assigned at Not on file Gender Identity Not on file Sexual Orientation Not on file documented as of this encounter Miscellaneous Notes * Telephone Encounter - Susy Chavez - 10/04/2023 5:33 PM EST Voicemail in Prior Authorization Office from Marek at [facility] RX Stating he needs additional clinical from Dr. Josse Cantor regarding patient: Venkata Zhao - [id number] For a Humira Pen injection 40 mg The request they received is is incomplete and cannot be processed A fax was sent that needs to completed and returned to fax [phone] add reference REF # [id number] to the fax If questions call: [phone] & reference REF # [id number] They will wait for response until 10/17/23 Based on previous notes in chart for Latia sending in Wanda Black this is not something our Prior Authorization office obtains authorizations for. documented in this encounter Plan of Treatment Not on file documented as of this encounter Visit Diagnoses Not on filedocumented in this encounter Care Teams Sweater Operator Relationship Specialty Start Date End Date Jeanne Trevizo, JAVASCRIPT PROGRAMMER [place] [address] PCP - General Family Medicine 01/20/22 documented as of this encounter
--- OUTSIDE RECORDS SUMMARY | 2024-06-16 15:22 | XMS_ITS | Encounter Summary ---
Author Organization [facility] [place] [address] Care Team Providers Care Maintenance Custodian Name Role Phone SanthoshJeanne APRN Primary Care Provider [phone] Reason for Visit * Reason Comments Specialty Refill Management Encounter Details Date Type Department Care Team (Late st Contact Info) Description 05/29/2023 Specialty [place] [id number] Fallon Arnold CPHT Social History Tobacco Use Types Packs/Day Years Used Date Smoking Tobacco: Never Smokeless Tobacco: Never Alcohol Use Standard Drinks/Week Comments Yes 0 (1 standard drink = 0.6 oz pur e alcohol) occasional Sex and Gender Information Value Date Recorded Sex Assigned at Not on file Gender Identity Not on file Sexual Orientation Not on file documented as of this encounter Progress Notes * Fallon Arnold CPHT - 05/29/2023 5:01 PM EDT Clinical Management Plan: Refill Specialty Pharmacy Consultation; Fallon Arnold CPHT Comprehensive Medication Management (CMM) Venkata Zhao is [...] Natural Rubber Medication Reconciliation Discrepancies (compared to [facility] med list) No Specialty Pharmacy Refill Questionnaire More data exists 05/29/2023 Refill Questionnaire What is the name of the specialty medication you are refilling? Humira Are you taking any new medications? No Any new medical condition? No Any new allergies? No Any new side effects that are bothersome? No What date will you need this fill by? 06/01/2023 Adherence: Any missed doses? No Patient understands no changes to current drug regimen were made. Fallon Arnold CPHT 05/29/23 5:02 PM documented in this encounter Plan of Treatment Not on file documented as of this encounter Visit Diagnoses Not on filedocumented in this encounter Care Teams Maintenance Custodian Relationship Specialty Start Date End Date Jeanne [place] [address] PCP - General Family Medicine 01/20/22 documented as of this encounter
--- OUTSIDE RECORDS SUMMARY | 2024-06-16 15:22 | XMS_ITS | Encounter Summary ---
Author Organization [facility] [place] [address] Care Team Providers Care Operations Research Manager Name Role Phone Jeanne Trevizo APRN Primary Care Provider [phone] Encounter Details Date Type Department Care Team (Late st Contact Info) Description 01/09/2024 [facility] [address] [place] [address] Josse Cantor MD [facility] [address] [place] [address] Social History Tobacco Use Types Packs/Day Years [...] on filedocumented in this encounter Care Teams Operations Research Manager Relationship Specialty Start Date End Date Jeanne Trevizo APRN [facility] [address] [place] [address] PCP - General Family Medicine 01/20/22 documented as of this encounter
--- OUTSIDE RECORDS SUMMARY | 2024-06-16 15:22 | XMS_ITS | Encounter Summary ---
Author Organization [facility] [place] [address] Care Team Providers Care Deputy General Counsel Name Role Phone Jeanne Trevizo APRN Primary Care Provider [phone] Encounter Details Date Type Department Care Team (Late st Contact Info) Description 03/28/[address] at [address] [place] [address] Josse Cantor MD [facility] [address] [place] [address] Social History Tobacco Use Types Packs/Day Years [...] on filedocumented in this encounter Care Teams Deputy General Counsel Relationship Specialty Start Date End Date Jeanne Trevizo APRN [facility] [address] [place] [address] PCP - General Family Medicine 01/20/22 documented as of this encounter
--- OUTSIDE RECORDS SUMMARY | 2024-06-16 15:22 | XMS_ITS | Encounter Summary ---
Author Organization [facility] [place] [address] Care Team Providers Care Delivery And Mail Sorter Name Role Phone Jeanne Trevizo APRN Primary Care Provider [phone] Encounter Details Date Type Department Care Team (Late st Contact Info) Description 01/09/2024 4:00 PM EDT Office Visit Dermatology at [facility] [address] [place] [address] Josse Cantor MD [facility] [address] [place] [address] Hidradenitis suppurativa; High risk medication use Social History Tobacco Use Types Packs/Day Years [...] Progress Notes * Josse Cantor MD - 01/09/2024 4:00 PM EDT Images from the original note were [...] y.o. Patient returns to clinic today for HS F/U. The patient reports the following: - Pt states he is having a bad flare right now on his left cheek. The patient states that he had a spot under his right arm that was bad when he called but has since subsided. Last visit at Dermatology: 07/04/2023 Last visit with this provider: 07/04/2023 Medications: Reviewed in eD-H Allergies: Reviewed in eD-H Skin Examination: Focused skin examination of the face, axillae, and neck was normal with the exception of the findings below. Assessment/Plan # Hidradenitis Suppurativa, Coppola Stage 2 -Significant PIH and scarring on left popliteal fossa, PIH and scarring in left axilla - Numerous flares since last follow up visit that have significantly impacted patients quality of life - Discussed treatment options (topical, oral antibiotics, ILK) - S/p Rx: Clindamycin Lotion - apply topically 1-2x a day to affected area - Continue OTC benzoyl peroxide wash such as Panoxyl - s/p: Doxycycline 100mg BID x 6 months - Given flares despite Humira, will plan to start Rx Cosentyx. - Cosentyx is being used to treat psoriasis after failure of other modalities. This agent is in a class of medications called IL-17a inhibitors. It works by blocking the action of IL-17a, a substancein the body that causes inflammation that is very specific to the psoriasis pathway. - Using Cosentyx injection may decrease your ability to fight infection and increase the chance that you will develop a serious infection, including severe fungal, bacterial, and viral infection thatmay spread through the body. These infections may need to be treated in a hospital and may cause . Cosentyx injection may also increase the risk that a latent or untreated infection with Hepatitis B or Tuberculosis will become more serious and you will develop symptoms. -Expectations PASI 75; 50% achieve at 4wks -PASI 90 76.2% achieve at 16 weeks -PASI 100 45% achieve at 52 weeks I.e. Complete clearance of skin Plan: - Start RX: Secukinumab (Cosentyx) 150mg/mL Pens Rx: Loading dose: 300mg (2 pens) SC at weeks 0,1,2,3,4 Rx: Maintenance dose: 300mg (2pens) SC Q4wks Sent to [facility] specialty pharmacy. Pt request co-pay assistance. - Labs today: CBC, CMP, Quantiferon-TB gold - discontinue Rx Humira (Adalimumab) after patient receives Cosentyx Figure 1 Photo(s) taken and charted with patient consent. Other: N/A RTC: 3 months for HS follow up []Note routed to litigation secretary [x]Recall placed in scheduling system []Appointment scheduled at checkout Scribe attestation: Sommer Arcos [facility] has performed the documentation for this encounter in the presence of and acting as a scribe for Josse Cantor MD. I performed the above scribed service and agree with the accuracy of the documentation in this encounter. Reviewed and signed by: Josse Cantor MD Dermatology [facility] Patient seen and evaluated with staff drawing hand: Kylie Mccormick MD Dermatology [facility] * Kylie Mccormick MD - 01/09/2024 4:00 PM EDT I directly supervised Josse Cantor MD in the care of this Dermatology patient in person. I saw and evaluated this patient with Josse Cantor MD. Josse Cantor MD presented the history and physical exam details to me, then we saw the patient together, and I confirmed these findings. I agree with details as written. My physical examination confirms Josse Cantor MD's findings. The assessment and plan were formulated in discussion with me at the time of visit, and I agree with them asdocumented. Kylie Mccormick MD Staff Button Breaker Operator Department of Dermatology [facility] documented in this encounter Plan of Treatment Scheduled Orders Name Type Priority Associated Diagnoses Orde r Schedule QuantiFERON-TB Gold Lab Routine High risk medication use Expected: 01/09/2024, Expires: 07/10/2024 CBC (with Diff) Lab Routine High risk medication use Expected: 01/09/2024 (Approximate), Expires: 07/10/2024 Comprehensive metabolic panel (non-fasting) Lab Routine High risk medication use Expected: 01/09/2024 (Approximate), Expires: 07/10/2024 documented as of this encounter Visit Diagnoses Diagnosis Hidradenitis suppurativa Hidradenitis High risk medication use Encounter for long-term (current) use of other medications documented in this encounter Care Teams Delivery And Mail Sorter Relationship Specialty Start Date End Date Jeanne Trevizo, RUBBER HEEL AND SOLE PRESS TENDER [address] [place] [address] PCP - General Family Medicine 01/20/22 documented as of this encounter
--- OUTSIDE RECORDS SUMMARY | 2024-06-16 15:22 | XMS_ITS | Encounter Summary ---
Author Organization [facility] Address [facility] [place] [address] Care Team Providers Care Customer Success Advocate Name Role Phone Jeanne Trevizo APRN Primary Care Provider [phone] Encounter Details Date Type Department Care Team (Late st Contact Info) Description 09/27/2023 Telephone Dermatology at [facility] [address] [place] [address] Josse Cantor MD [facility] DR [address] [place] [address] Social History Tobacco Use Types Packs/Day Years [...] encounter Miscellaneous Notes * Telephone Encounter - Marion Marr - 09/27/2023 10:02 AM EST Patient needs assistance in getting his adalimumab (Humira,CF, Pen Tjqilf-BA-QH) 80 mg/0.8 mL Pen Injector Kit adalimumab (Humira,CF, Pen) 40 mg/0.4 mL Pen Injector Kit Patient was working with the Specialty pharmacy at . They are emailing him some paperwork to fillout. The cost is $2000 and he states there is a copay waiver. Possible $5. He has commercial insurance and Government Secondary. Meanwhile he is out of his medication. He looking for assistance to get this straighten out. Pleasecall [phone]. documented in this encounter Plan of Treatment Not on file documented as of this encounter Visit Diagnoses Not on filedocumented in this encounter Care Teams Customer Success Advocate Relationship Specialty Start Date End Date Jeanne Trevizo, SITE [place] [address] [place] [address] PCP - General Family Medicine 01/20/22 documented as of this encounter
--- OUTSIDE RECORDS SUMMARY | 2024-06-16 15:22 | XMS_ITS | Encounter Summary ---
Author Organization [facility] [place] [address] Care Team Providers Care Utility Locate Technician Name Role Phone Santhosh, Jeanne Flood APRN Primary Care Provider [phone] Reason for Visit * Reason Comments Specialty Refill Management Humira (2 Pe ns) 40mg/0.4ml Pnkt Encounter Details Date Type Department Care Team (Late st Contact Info) Description 09/27/2023 Specialty [place] [address] [address] [place], [facility] Social History Tobacco Use Types Packs/Day [...] as of this encounter Progress Notes * Yoon Pang RP - 09/27/2023 9:22 AM EST Clinical Management Plan: Refill Specialty Pharmacy Consultation; Yoon pang Goran Comprehensive Medication Management (CMM) Venkata Zhao is a 38 y.o. (1985) male who was contacted in regard to a specialty medication refill reminder. patient requested a refill of Humira. A review of the medication therapy was performed. The medication was refilled as scheduled, and all medication related questions and concerns were addressed. The specialty pharmacy staff will follow up with the patient 5-7 days prior to next refill. Was a change made to the Care Plan: no If yes, should the medication be held: No Assessment and Recommendations: Medication Management Type of Medication Management: chronic disease management Referred By: pharmacist Recipient: beneficiary Provider: pharmacist - other Visit Type: Misc Follow-up Time Spent: 1-15 min Method of Contact: by telephone Cognitive Ability: good Allergies and Drug intolerance: Allergies Allergen Reactions Latex, Natural Rubber Medication Reconciliation Discrepancies (compared to [facility] med list) -Patient states that last dose was two days late, upcoming dose will now be late as secondary insurance is requiring PA and patient is due on 09/28/23. Specialty Pharmacy Refill Questionnaire More data exists 09/27/2023 Refill Questionnaire What is the name of the specialty medication you are refilling? Humira (2 Pens) 40mg/0.4ml Pnkt Are you taking any new medications? No Any new medical condition? No Any new allergies? No Any missed doses since your last fill? 1-2 Any new side effects that are bothersome? No What date will you need this fill by? 09/28/2023 Adherence: Specialty Med Adherence Patient Demonstrates Understanding of Importance of Adherence: Yes Educational Information or Adherence Tools Provided: Yes How many doses does patient have remaining at home?: 0 Patient Reported X Missed Doses in the Last Month: 1-2 If >0, reason for missed doses: memory If yes, why?: insurance, memory Provider-Estimated Medication Adherence Level: 76-89% Adherence Tools Used: directed education, calendar Pt understands no changes to current drug regimen were made at the appointment and that [facility] is providing recommendations (summary located at top of note) for provider review and follow up. Yoon pang RPH 09/27/23 12:10 PM documented in this encounter Plan of Treatment Not on file documented as of this encounter Visit Diagnoses Not on filedocumented in this encounter Care Teams Utility Locate Technician Relationship Specialty Start Date End Date [place] [address] PCP - General Family Medicine 01/20/22 documented as of this encounter
--- OUTSIDE RECORDS SUMMARY | 2024-06-16 15:22 | XMS_ITS | Encounter Summary ---
Author Organization [facility] [place] [address] Care Team Providers Care Senior Product Development Manager Name Role Phone Jeanne Trevizo APRN Primary Care Provider [phone] Encounter Details Date Type Department Care Team (Late st Contact Info) Description 10/02/2023 Telephone Dermatology at [facility] [address] [place] [address] Josse Cantor MD [facility] [address] OTTONI[place] [address] Social History Tobacco Use Types Packs/Day Years [...] encounter Miscellaneous Notes * Telephone Encounter - Rita Delgado - 10/02/2023 8:27 AM EST I received a phone call from Venkata Zhao stating he was just notified by his insurance that the PA for his Humira was approved so he is wondering what the next steps are. He is breaking out and would really like to get this medication as soon as possible. He can be reached back at [phone] documented in this encounter Plan of Treatment Not on file documented as of this encounter Visit Diagnoses Not on filedocumented in this encounter Care Teams Senior Product Development Manager Relationship Specialty Start Date End Date Jeanne Trevizo, WINE MERCHANT Jose [facility] [place] [address] PCP - General Family Medicine 01/20/22 documented as of this encounter
--- OUTSIDE RECORDS SUMMARY | 2024-06-16 15:22 | XMS_ITS | Encounter Summary ---
[place] [address] Care Team Providers Care Condenser Tester Name Role Phone Jeanne Trevizo APRN Primary Care Provider [phone] Reason for Visit * Reason Comments Specialty Refill Management humira Encounter Details Date Type Department Care Team (Late st Contact Info) Description 06/25/2023 Specialty [place] [id number] Doreen Brothers, [facility] Social History Tobacco Use Types Packs/Day [...] encounter Progress Notes * Doreen Brothers - 06/25/2023 1:59 PM EDT Clinical Management Plan: Refill Specialty [...] Natural Rubber Medication Reconciliation Discrepancies (compared to [facility] med list) No Specialty Pharmacy Refill Questionnaire More data exists 06/25/2023 Refill Questionnaire What is the name of the specialty medication you are refilling? humira Are you taking any new medications? No Any new medical condition? No Any new allergies? No Any new side effects that are bothersome? No What date will you need this fill by? 06/29/2023 Adherence: Any missed doses? No Patient understands no changes to current drug regimen were made. Doreen Brothers 06/25/23 2:00 PM documented in this encounter Plan of Treatment Not on file documented as of this encounter Visit Diagnoses Not on filedocumented in this encounter Care Teams Condenser Tester Relationship Specialty Start Date End Date Jeanne Tre[place] [address] [place] [address] PCP - General Family Medicine 01/20/22 documented as of this encounter
--- OUTSIDE RECORDS SUMMARY | 2024-06-16 15:22 | XMS_ITS | Encounter Summary ---
Author Organization [facility] [place] [address] Care Team Providers Care Resistor Tester Name Role Phone Jeanne Trevizo RUSH Primary Care Provider Reason for Visit * Reason Onset Date Comments Research 01/09/2024 Encounter Details Date Type Department Care Team (Late st Contact Info) Description 01/09/2024 Notes Only Dermatology at [facility] [address] [place] [address] Susi Vazquez MD [facility] [address] O[place] [address] Research Social History Tobacco Use Types Packs/Day Years Used Date Smoking Tobacco: Never Smokeless Tobacco: Never Alcohol Use Standard Drinks/Week Comments Yes 0 (1 standard drink = 0.6 oz pur e alcohol) occasional Sex and Gender Information Value Date Recorded Sex Assigned at Not on file Gender Identity Not on file Sexual Orientation Not on file documented as of this encounter Progress Notes * Susi Vazquez - 01/09/2024 11:59 PM EDT RESEARCH STUDY VISIT PROTOCOL: TARGET-DERM A 5-year Longitudinal Observational Study of Patients Undergoing Therapy for Immune-Mediated Inflammatory Skin Conditions Velos #: [id number] PI: Carlitos Simpson MD Sub-I: Josse Cantor MD, Kylie Mccormick MD, Cornel Berry MD, Linnea Johnson MD, Mariely Fitzpatrick MD, Rich Montanez MD, Blayne Tavarez MD, Melanie Sousa MD Subject #: [id number] Visit: Screening/Month 0 01/09/2024 Venkata Zhao is a 38 y.o. male with history of Hidradenitis Suppurativa . he was seen in the Dermatology clinic today for a screening visit for the above mentioned study. CONSENT Protocol was reviewed with Venkata Zhao by Susi Vazquez including a description of study purpose,proposed care, procedures, potential discomforts, risks and benefits, voluntary nature of participation as well as study requirements, and length of study duration. Optional portions of study addressed individually per consent form. In addition, patient was informed regarding the uncertainties, both in terms of benefit as well as risks that are part of participation in clinical trials. Discussed confidentiality of patient's health information as specified in the consent form. he was advised that they may discontinue study involvement at any time and that refusing to participate or discontinuing treatment will not compromise the patient's access to treatment options or care. Financial responsibilities in the context of clinical trials, as well as compensation for completion of optional study components reviewed. A copy of the written informed consent form was provided to Venkata Zhao for review. he was given adequate time to read all information, to ask questions and review concerns, all of which were answered to his satisfaction. Venkata Zhao verbalized his understanding of the study details, the risks and benefits of the study, and what would be expected of him while participating. The informed consent document (version March 2023) was signed and dated by the subject and Susi Vazquez prior to any study procedures being con ducted. A copy of the signed consent form was given to Venkata Zhao and the original copy was scanned into [facility] and then retained with our source documents. Demographics: male, 38 y.o., White. Born 1985. Eligibility: The following inclusion and exclusion criteria were reviewed by Dr. Susi Vazquez after informed consent was obtained. She confirmed eligibility before moving forward in the study and performing any study procedures. Inclusion Criteria: Adults and children (all ages) that have been prescribed any dermatologic treatment for a physician-confirmed IMISC 2. Patient has plans for future visits at the site for continued management of IMISC Exclusion Criteria: Inability to provide written informed consent 2. Participation in an interventional study or trial using a systemic IMISC therapy at the time of enrollement. Patients may be enrolled in Target-Derm once participation in the trial has ended. Note: patient may be enrolled in other registeries or studies where IMISC treatment outcomes are observed and/or reported (such as center-based registries). And patient is also permitted to participate dyana topical study. Physician assessments: Hidradenitis Suppurativa Physician Assessments were completed by Dr. Josse Cantor Biospecimen: Subject opted for saliva sample. However due to our location and time restraints, specimen was not collected today and will be done at [facility]'s next visit. Susi Vazquez MD,MS Research Fellow - Dermatology documented in this encounter Plan of Treatment Not on file documented as of this encounter Visit Diagnoses Not on filedocumented in this encounter Care Teams Resistor Tester Relationship Specialty Start Date End Date Jeanne Trevizo, DANCE [place] [address] [place] [address] PCP - General Family Medicine 01/20/22 documented as of this encounter
--- OUTSIDE RECORDS SUMMARY | 2024-06-16 15:22 | XMS_ITS | Encounter Summary ---
[place] [address] Care Team Providers Care Retail Zone Specialist Name Role Phone Jeanne Trevizo APRN Primary Care Provider [phone] Encounter Details Date Type Department Care Team (Latest Contact Info) Description 03/11/2024 Specialty [place] [address] [facility] Refill Coordination - 28 day [...] on filedocumented in this encounter Care Teams Retail Zone Specialist Relationship Specialty Start Date End Date Jeanne Trevizo APRN [address] [place] [address] PCP - General Family Medicine 01/20/22 documented as of this encounter
--- OUTSIDE RECORDS SUMMARY | 2024-06-16 15:22 | XMS_ITS | Encounter Summary ---
Author Organization [facility] [place] [address] Care Team Providers Care University Extension Specialist Name Role Phone Jeanne Trevizo APRN Primary Care Provider [phone] Encounter Details Date Type Department Care Team (Latest Contact Info) Description 05/13/2024 Specialty [place] [address] Fransico Shankar, [facility] Refill Coordination - 28 day [...] Progress Notes * Fallon Arnold CPHT - 05/19/2024 8:48 AM EDT Clinical Management Plan: Refill Specialty Pharmacy Consultation; Fallon Arnold CPHT Comprehensive Medication Management (CMM) Mr. Venkata Zhao is a 39 y.o. (1985) male who was contacted in regard to a specialty medication refill reminder. The patient requested a refill of (P) Secukinumab. A review of the medicationtherapy was performed. The medication was refilled as [...] Natural Rubber Medication Reconciliation Discrepancies (compared to [facility] med list) No Review Flowsheet 05/19/2024 8:47 AM Assessment What is the name of the [...] date will you need this fill by? 05/24/2024 Adherence: Any missed doses? No Patient understands no changes to current drug regimen were made. Fallon Arnold CPHT 05/19/24 8:48 AM documented in this encounter Plan of Treatment Not on file documented as of this encounter Visit Diagnoses Not on filedocumented in this encounter Care Teams University Extension Specialist Relationship Specialty Start Date End Date Jeanne Trevizo, RAIL ASSEMBLER [address] [place] [address] PCP - General Family Medicine 01/20/22 documented as of this encounter
--- OUTSIDE RECORDS SUMMARY | 2024-06-16 15:22 | XMS_ITS | Encounter Summary ---
Author Organization [facility] [place] [address] Care Team Providers Care Telegraphic Typewriter Installer Name Role Phone Jeanne Trevizo APRN Primary Care Provider [phone] Encounter Details Date Type Department Care Team (Late st Contact Info) Description 05/07/2024 Telephone Dermatology at [facility] [address] [address] Shannan Alfaro MD [facility] DR OTTONIEL [place] [address] Social History Tobacco Use Types Packs/Day Years [...] encounter Miscellaneous Notes * Telephone Encounter - Sanna Choudhury - 05/07/2024 10:15 AM EDT Received a voicemail from Angelica Zamora a pharmacist at [facility]. She is looking to discuss amedication for this former Dr. Cantor patient but wanted to confirm she had the correct number priorto leaving details. She can be reached at [phone]. documented in this encounter Plan of Treatment Not on file documented as of this encounter Visit Diagnoses Not on filedocumented in this encounter Care Teams Telegraphic Typewriter Installer Relationship Specialty Start Date End Date Jeanne Trevizo, COTTON PICKING [place] [address] PCP - General Family Medicine 01/20/22 documented as of this encounter
--- OUTSIDE RECORDS SUMMARY | 2024-06-16 15:22 | XMS_ITS | Encounter Summary ---
Author Organization [facility] [place] [address] Care Team Providers Care Solid Propellant Processor Name Role Phone Jeanne Trevizo APRN Primary Care Provider [phone] Encounter Details Date Type Department Care Team (Late st Contact Info) Description 12/06/2023 Telephone Dermatology at [facility] [address] [place] [address] Josse Cantor MD [facility] DR OTTONI[address] [place] [address] Social History Tobacco Use Types Packs/Day Years [...] * Telephone Encounter - Sanna Choudhury - 12/06/2023 8:40 AM EDT Patient called stating he had a flare all over but was concerned about his face. He is questing if we can up the dosage on his Humira or if he needs to be seen in person. documented in this encounter Plan of Treatment Not on file documented as of this encounter Visit Diagnoses Not on filedocumented in this encounter Care Teams Solid Propellant Processor Relationship Specialty Start Date End Date [place] [address] PCP - General Family Medicine 01/20/22 documented as of this encounter
--- OUTSIDE RECORDS SUMMARY | 2024-06-16 15:22 | XMS_ITS | Encounter Summary ---
[place] [address] Care Team Providers Care Branch Logistics Supervisor Name Role Phone Jeanne Trevizo APRN Primary Care Provider [phone] Reason for Visit * Reason Comments Prior Authorization Humira Pen-CD/UC/HS Starter 80 PNKT Encounter Details Date Type Department Care Team (Late st Contact Info) Description 03/30/2023 Specialty [place] [address] Anjel Jimenez, SLUICE TENDER Social History Tobacco Use Types Packs/Day Years [...] of this encounter Progress Notes * Anjel Jimneez - 03/30/2023 11:50 AM EDT [facility], Medication Prior Authorization Submission Patient: Venkata Zhao Patient : 1985 Patient Address: [address] [address] Phone: [phone] (home) Medication Name: ADALIMUMAB 80 MG/0.8 ML SUBCUTANEOUS PEN KIT Medication ID: Subscriber Insurance: Subscriber Insurance Comment: [facility] (IR[facility]) Fax: Physician: ROSANNA LIRIANO Physician Comment: Sent Via: [facility] Negron: [id number] Ref/Case/PA#: [id number] Medication Strength Frequency Requested: Humira Pen-CD/UC/HS Starter 80 PNKT Inject the contents oftwo pens (160 mg) under the skin once on day 1, then inject the contents of one pen (80 mg) once on. Starting on inject the contents of one pen (40 mg) once weekly thereafter Qty/Day Supply: 12/19 New Start: New to Therapy Diagnosis & ICD-10 Code: Hidradenitis Suppurativa L73.2 Patient Notified: Yes Submission Notes: None Anjel Jimenez 03/30/23 11:53 AM * Anjel Jimenez - 03/30/2023 11:50 AM EDT [facility], Prior Authorization Approval Medication Name: ADALIMUMAB 80 MG/0.8 ML SUBCUTANEOUS PEN KIT Medication ID: Approval Dates: 03/30/2023 to 09/30/2023 Insurance requirements/notes: None Other Notes: None Case/Reference #: [id number] Approval notification Received via: Fax Copay: $ 8.68 Copay assistance: None Copay Notes: Insurance mandated Pharmacy: [facility] Specialty Pharmacy: Yes Patient Notified: Left Voicemessage Pharmacy staff will be reaching out to the patient to inform them of [facility]. If applicable, a pharmacist will speak with the patient to offer our specialty pharmacy services and to arrange delivery of their medication. Anjel Jimenez 04/02/23 7:59 AM documented in this encounter Plan of Treatment Not on file documented as of this encounter Visit Diagnoses Not on filedocumented in this encounter Care Teams Branch Logistics Supervisor Relationship Specialty Start Date End Date Jeanne Trevizo, SLITTER SERVICE AND SETTER [place] [address] PCP - General Family Medicine 01/20/22 documented as of this encounter
--- OUTSIDE RECORDS SUMMARY | 2024-06-16 15:22 | XMS_ITS | Encounter Summary ---
Author Organization [facility] [place] [address] Care Team Providers Care Manual Control Auger Press Operator Name Role Phone Jeanne Trevizo APRN Primary Care Provider Encounter Details Date Type Department Care Team (Latest Contact Info) Description 03/28/2023 Travel Social History Tobacco Use Types Packs/Day [...] on filedocumented in this encounter Care Teams Manual Control Auger Press Operator Relationship Specialty Start Date End Date Jeanne Trev[place] [address] [place] [address] PCP - General Family Medicine 01/20/22 documented as of this encounter
--- OUTSIDE RECORDS SUMMARY | 2024-06-16 15:22 | XMS_ITS | Encounter Summary ---
Author Organization [facility] [place] [address] Care Team Providers Care Paper Machine Backtender Name Role Phone Santhosh, Jeanne Flood APRN Primary Care Provider [phone] Encounter Details Date Type Department Care Team (Latest Contact Info) Description 02/14/2024 Specialty [place] [address] Neeta Parsons, [facility] Refill Coordination - 28 day recurrence (secukinumab) for Dermatology, Clinical Assessment - 1 month (secukinumab) for Dermatology Social History Tobacco Use [...] as of this encounter Progress Notes * Neeta Parsons [facility] - 02/14/2024 2:30 PM EDT Specialty Pharmacy Ongoing Clinical Assessment Note Comprehensive Medication Management (CMM): Specialty Consult, Opt Out Venkata Zhao is a 38 y.o. (1985) male, who is being followed by [facility] forservice of Secukinumab. A review of the medication therapy was performed. The medication was Refilled as scheduled, and all medication related questions and concerns were addressed. The specialty pharmacy staff will follow up with the patient 5-7 days prior to next refill. Is patient willing to proceed with Clinical Assessment?: No Summary and Recommendations: Patient was informed of Specialty pharmacy services and declined the offer for a consult today. Patient answered refill questions and had no additional questions or concerns. He is aware to injectthis next refill week 4 and then it will be every 4 weeks thereafter. Allergies and Drug intolerance: Allergies Allergen Reactions Latex, Natural Rubber Problem List: Patient Active Problem List Diagnosis Code Bipolar 1 disorder F31.9 NIA (obstructive sleep apnea) G47.33 Hidradenitis suppurativa L73.2 Medication List: Current Outpatient Medications Medication Sig Dispense Refill secukinumab (Cosentyx UnoReady Pen) 300 mg/2 mL (150 mg/mL) Pen Injector Inject the contents of onepen (300 mg) under the skin once on weeks 0, 1, 2, 3, and 4, then once every four weeks thereafter.8 mL 0 secukinumab (Cosentyx UnoReady Pen) 300 mg/2 mL (150 mg/mL) Pen Injector Inject 300 mg subcutaneously every 28 days. 2 mL 5 doxycycline monohydrate (Monodox) 100 mg [...] No current facility-administered medications for this visit. Therapy Assessment and Recommendations: 02/14/2024 Clinical Assessment Review Therapy start date 01/27/2024 What date will you need this fill by? 02/24/2024 Appropriate Therapy Yes Additional equipment/supplies required No Care Plan reviewed and approved by the pharmacist Yes Medication reconciliation discrepancies (compared to [facility] med list) Yes Medication Reconciliation Discrepancies removed [facility] Pharmacist follow-up needed No Patient informed of specialty services: Yes Patient understands no change to current drug regimen were made at the appointment and that [facility] is providing recommendations (summary at top of note) for provider review and follow up: Yes Medication Therapy Recommendations No medication therapy recommendations to display Neeta Parsons RPH 02/14/24 2:36 PM documented in this encounter Plan of Treatment Not on file documented as of this encounter Visit Diagnoses Diagnosis Hidradenitis suppurativa Hidradenitis documented in this encounter Care Teams Paper Machine Backtender Relationship Specialty Start Date End Date Jeanne Trevizo, BROADBAND ENG[place] [address] PCP - General Family Medicine 01/20/22 documented as of this encounter
--- OUTSIDE RECORDS SUMMARY | 2024-06-16 15:22 | XMS_ITS | Encounter Summary ---
Author Organization [facility] [place] [address] Care Team Providers Care Hide Mill Man Name Role Phone Jeanne Trevizo APRN Primary Care Provider [phone] Encounter Details Date Type Department Care Team (Late st Contact Info) Description 10/01/2023 Telephone Dermatology at [facility] [address] [address] Josse Cantor MD [facility] [address] [place] [address] Social History Tobacco Use Types Packs/Day Years [...] * Telephone Encounter - Marion Marr - 10/01/2023 11:05 AM EST Patient is calling for an update on his Humira script. It has been held up with PA / Specialty. Patient has been out of the medication for 1 week. Please advise that status. Patient can be reach at [phone]. documented in this encounter Plan of Treatment Not on file documented as of this encounter Visit Diagnoses Not on filedocumented in this encounter Care Teams Hide Mill Man Relationship Specialty Start Date End Date Jeanne Trevizo, COUPON AND BOND COLLECTION CLERK Jose MONTIEL [facility] [address] PCP - General Family Medicine 01/20/22 documented as of this encounter
--- OUTSIDE RECORDS SUMMARY | 2024-06-16 15:22 | XMS_ITS | Encounter Summary ---
Author Organization [facility] [place] [address] Care Team Providers Care House Nurse Name Role Phone Jeanne Trevizo APRN Primary Care Provider [phone] Reason for Visit * Reason Comments Medication Management Encounter Details Date Type Department Care Team (Late st Contact Info) Description 07/27/2023 Specialty Pharmacy [place] [address] Fransico Shankar [facility] Social History Tobacco Use Types Packs/Day Years Used Date Smoking Tobacco: Never Smokeless Tobacco: Never Alcohol Use Standard Drinks/Week Comments Yes 0 (1 standard drink = 0.6 oz pur e alcohol) occasional Sex and Gender Information Value Date Recorded Sex Assigned at Not on file Gender Identity Not on file Sexual Orientation Not on file documented as of this encounter Progress Notes * Fransico Shankar [facility] - 07/27/2023 11:04 AM EDT Clinical Management Plan: Refill Specialty Pharmacy Consultation; Fransico Shankar [facility] Comprehensive Medication Management (CMM) Venkata Zhao is [...] Natural Rubber Medication Reconciliation Discrepancies (compared to [facility] med list) No Specialty Pharmacy Refill Questionnaire More data exists 07/27/2023 Refill Questionnaire What is the name of the specialty medication you are refilling? Humira Are you taking any new medications? No Any new medical condition? No Any new allergies? No Any new side effects that are bothersome? No What date will you need this fill by? 08/03/2023 Adherence: Any missed doses? No Patient understands no changes to current drug regimen were made. Fransico Shankar RPH 07/27/23 11:04 AM documented in this encounter Plan of Treatment Not on file documented as of this encounter Visit Diagnoses Not on filedocumented in this encounter Care Teams House Nurse Relationship Specialty Start Date End Date Jeanne [place] [address] [place] [address] PCP - General Family Medicine 01/20/22 documented as of this encounter
--- OUTSIDE RECORDS SUMMARY | 2024-06-16 15:22 | XMS_ITS | Encounter Summary ---
Author Organization [facility] [place] [address] Care Team Providers Care Corporate Trust Officer Name Role Phone Jeanne Trevizo APRN Primary Care Provider [phone] Reason for Visit * Reason Comments Specialty Pharmacy Review Encounter Details Date Type Department Care Team (Late st Contact Info) Description 01/09/2024 Specialty [place] [id number] Brad Lee, [facility] Social History Tobacco Use Types Packs/Day [...] encounter Progress Notes * Brad Lee - 01/09/2024 11:59 PM EDT The [facility] has completed a benefits investigation for Venkata Zhao to review their eligibility to fill at [facility]. Per patient's medication list they are prescribedCOSENTYX UNOREADY PEN 300 MG/2 ML and the medication is currently filled through the [facility]. documented in this encounter Plan of Treatment Not on file documented as of this encounter Visit Diagnoses Not on filedocumented in this encounter Care Teams Corporate Trust Officer Relationship Specialty Start Date End Date Jeanne Trevizo APRN [address] [place] [address] PCP - General Family Medicine 01/20/22 documented as of this encounter
--- OUTSIDE RECORDS SUMMARY | 2024-06-16 15:22 | XMS_ITS | Encounter Summary ---
[place] [address] Care Team Providers Care Naval Engineer Name Role Phone Jeanne Trevizo APRN Primary Care Provider [phone] Reason for Visit * Reason Comments Prior Authorization Cyltezo Encounter Details Date Type Department Care Team (Late st Contact Info) Description 09/28/2023 Specialty [place] [phone] Wanda Gaytan, [facility] Social History Tobacco Use Types Packs/Day [...] as of this encounter Progress Notes * Wanda Gaytan [facility] - 09/28/2023 9:58 AM EST [facility], Medication Prior Authorization Submission Patient: Venkata Zhao Patient : 1985 Patient Address: [address] [address] Phone: [phone] (home) Medication Name: CYLTEZO(CF) PEN 40 MG/0.8 ML SUBCUTANEOUS KIT Medication ID: Subscriber Insurance: [employer] Fax: Physician: ROSANNA LIRIANO Sent Via: [facility] Negron: [id number] Ref/Case/PA#: Medication Strength Frequency Requested: 40 mg/ 0.8 ml subq every 7 days Qty/Day Supply: 01/19 New Start: Renewal Diagnosis & ICD-10 Code: L73.2 Patient Notified: Yes Submission Notes: - Submitted for formulary alternative Curt Gaytan RPH 09/28/23 10:02 AM * Brad Lee - 09/28/2023 9:58 AM EST [facility], Prior Authorization Approval Medication Name: CYLTEZO(CF) PEN 40 MG/0.8 ML SUBCUTANEOUS KIT Medication ID: Approval Dates: 10/03/2023 to 2024 Insurance requirements/notes: None Other Notes: None Case/Reference #: [id number] Approval notification Received via: Telephone Copay: Copay assistance: Other (Enter Comment) Copay Notes: Claim is not running through at this time unable to see copay information. Insurance rep confirmed it was approved and gave the case number along with approval dates Insurance mandated Pharmacy: [facility] Fillable at [facility]: Yes Patient Notified: Yes Pharmacy staff will be reaching out to the patient to inform them of their [facility]. If applicable, a pharmacist will speak with the patient to offer our specialty pharmacy services and to arrange delivery of their medication. Brad Lee 10/03/23 11:11 AM documented in this encounter Plan of Treatment Not on file documented as of this encounter Visit Diagnoses Not on filedocumented in this encounter Care Teams Naval Engineer Relationship Specialty Start Date End Date Jeanne Trevizo APRN [address] [facility] [address] PCP - General Family Medicine 01/20/22 documented as of this encounter
--- OUTSIDE RECORDS SUMMARY | 2024-06-16 15:22 | XMS_ITS | Encounter Summary ---
Author Organization [facility] Address [facility] [place] [address] Care Team Providers Care Thermoforming Operator Name Role Phone Santhosh, Jeanne Flood APRN Primary Care Provider [phone] Encounter Details Date Type Department Care Team (Late st Contact Info) Description 05/08/[address] [facility] [address] [place] [address] Shannan Alfaro MD [facility] [address] [place] [address] Social History Tobacco Use Types Packs/Day Years [...] * Telephone Encounter - Rita Delgado - 05/08/2024 3:15 PM EDT I received a call from Angelica hanna pharmacist at [facility] returning a call to Dr. Alfaro. She wanted me to give a message to Dr. Alfaro that the PA for Venkatamilton Zhao's Cosentyx will on 07/11/24 and is no longer on the formulary. The others that are on the list are: Patti Jeffery The list goes on but she wanted to leave this message and if Dr. Alfaro would like to discuss furthershe can be reached back at [phone] documented in this encounter Plan of Treatment Not on file documented as of this encounter Visit Diagnoses Not on filedocumented in this encounter Care Teams Thermoforming Operator Relationship Specialty Start Date End Date Jeanne Trevizo, [place] [place] [address] PCP - General Family Medicine 01/20/22 documented as of this encounter
--- OUTSIDE RECORDS SUMMARY | 2024-06-16 15:22 | XMS_ITS | Encounter Summary ---
[place] [address] Care Team Providers Care Sports Athletic Trainer Name Role Phone Jeanne Trevizo APRN Primary Care Provider [phone] Encounter Details Date Type Department Care Team (Latest Contact Info) Description 03/06/2024 Specialty [place] [address] Deshawn Perdomo, [facility] Refill Coordination - 28 day recurrence [...] on filedocumented in this encounter Care Teams Sports Athletic Trainer Relationship Specialty Start Date End Date Jeanne Trevizo APRN [address] [place] [address] PCP - General Family Medicine 01/20/22 documented as of this encounter
--- OUTSIDE RECORDS SUMMARY | 2024-06-16 15:22 | XMS_ITS | Encounter Summary ---
Author Organization [facility] [place] [address] Care Team Providers Care Facilities Custodian Name Role Phone Jeanne Trevizo APRN Primary Care Provider [phone] Encounter Details Date Type Department Care Team (Latest Contact Info) Description 01/09/2024 Travel Social History Tobacco Use Types Packs/Day [...] on filedocumented in this encounter Care Teams Facilities Custodian Relationship Specialty Start Date End Date Jeanne Trevizo [place] [address] [place] [address] PCP - General Family Medicine 01/20/22 documented as of this encounter
--- OUTSIDE RECORDS SUMMARY | 2024-06-16 15:22 | XMS_ITS | Encounter Summary ---
Author Organization [facility] [place] [address] Care Team Providers Care Ict Systems Test Engineer Name Role Phone Jeanne Trevizo APRN Primary Care Provider [phone] Reason for Visit * Reason Comments Patient Education Encounter Details Date Type Department Care Team (Late st Contact Info) Description 03/28/2023 Specialty [place] [phone] Herb Rebolledo [facility] Social History Tobacco Use Types [...] Progress Notes * Herb Rebolledo RPH - 03/28/2023 3:39 PM EDT Specialty Pharmacy Initial Consultation; Herb Rebolledo RPH Comprehensive Medication Management (CMM) Venkata Zhao Diagnosis: Hidradenitis Suppurativa Therapy Start Date: TBD - New Start Contact in person or via telephone: In person Mr. Venkata Zhao is a 37 y.o. (1985) male who was contacted in regard to specialty medication. Spoke with patient regarding Humira. A review of the medication therapy was performed. The medication was Filled as scheduled, and all medication related questions and concerns were addressed. The specialty pharmacy staff will follow up with the patient 5-7 days prior to next refill. Is the patient willing to proceed with the Clinical Assessment? Yes Summary and Recommendations: Comprehensive review of Humira discussed with the patient. Topics covered include: warnings/precautions & contraindications, patient's dose and frequency of administration, personal indication for use, potential adverse effects, drug &/or food interactions, monitoring/safety parameters, drug MOA, proper storage/handling recommendations, and anticipated time to effect Patient reports no personal hx of demyelinating disease or heart failure Education provided on the importance of infection [...] Requirements: no Medication Reconciliation Discrepancies (compared to [facility] med list) -N/A Medication List: Current Outpatient Medications Medication Sig Dispense Refill doxycycline monohydrate (Monodox) 100 mg capsule TAKE [...] file to calculate BMI. Pertinent Lab values: No results found for: ALT, AST, GGT, ALKPHOS, BILITOT, BILIDIR, ALBUMIN, PROT No results found for: WBC, HGB, HCT, MCV, PLATELET No results found for: HA1C Immunization History Administered Date(s) Administered Influenza Vaccine PF, Quadrivalent 05/30/2021 Influenza Vaccine, Unspecified Formulation 08/03/2020 Tdap Vaccine 07/15/2015 Assessment and Recommendations: Patient Counseling Patient informed of specialty services: Yes Patient accepted offer to alcohol and drug counselor: select all, adherence/missed doses, cost of [...] medication discussed, over the counter products discussed, preventative care discussed, reminder to refill or milk pickup driver medication discussed, self-monitoring discussed, start medication discussed, timing of medications discussed, referral needs discussed Treatment Outcomes 03/28/2023 [id number] Disease progression: Stable Patient Overall Status: Stable [...] Social Assessment: Does patient have a primary gericare aide: No Does patient have an emergency contact on file: Yes Does patient need referral to psychosocial rehabilitation counselor: No Does patient need referral to advocacy [...] Start) Welcome Packet and Rights and Responsibilities: Specialty Med Adherence Patient Demonstrates Understanding of Importance of Adherence: Yes Educational Information or Adherence Tools Provided: Yes Therapy Assessment: Current Medication Dosing/Route/Frequency: Humira Pens Inject the contents of two pens (160 mg) under the skin once on day 1, then inject the contents of one pen (80 mg) once on day 15. Starting on day 29 inject the contents of one pen (40 mg) once weekly thereafter Appropriate Therapy: Yes Current Affected Areas: thighs Total BSA involved: unknown Recent Skin Exacerbations/Flaring: yes - right thigh worse than left Recent Topical Corticosteroid Use: no Relapsing/Remitting Factors: no Diagnosis of Psoriatic Arthritis: No Patient's Problems/Needs: Additional treatment for uncontrolled HS and ongoing clinic follow up Expected Outcome: Skin healing and reduction of symptoms Treatment Outcome: Therapy initiated Patient's goals: Patient's specific desired goal: Skin healing and reduction of symptoms Measured by: Patient reported s/sx and provider physical exam Time-frame to meet goal: 3-6 months On a scale of 1-10, what is the patient's overall confidence level with administering this medication? Not assessed Monitoring requirements for prescribed medication: CBC, CMP, Hep B and C, Quant Gold On a scale of 1-10 the patient rates their quality of life: Not assessed Care Plan Reviewed and Approved by both Pharmacist and Patient: Yes Interventions (if applicable): No N/A Pharmacist follow-up needed: Yes Delivery Method: Delivery Patient understands no changes to current drug regimen were made at the appointment and that [facility] isproviding recommendations (summary located at top of note) for provider review and follow up. Herb Rebolledo RPH 03/28/23 3:41 PM documented in this encounter Plan of Treatment Not on file documented as of this encounter Visit Diagnoses Diagnosis Hidradenitis suppurativa Hidradenitis documented in this encounter Care Teams Ict Systems Test Engineer Relationship Specialty Start Date End Date Jeanne Trevizo APRN [address] [place] [address] PCP - General Family Medicine 01/20/22 documented as of this encounter
--- OUTSIDE RECORDS SUMMARY | 2024-06-16 15:22 | XMS_ITS | Encounter Summary ---
Author Organization [facility] [address] Care Team Providers Care Mounted Police Officer Name Role Phone Jeanne Trevizo APRN Primary Care Provider [phone] Reason for Visit * Reason Comments Medication Management Encounter Details Date Type Department Care Team (Late st Contact Info) Description 01/15/2024 Specialty [place] [phone] Rupa Castellanos RPH Social History Tobacco Use Types Packs/Day Years Used Date Smoking Tobacco: Never Smokeless Tobacco: Never Alcohol Use Standard Drinks/Week Comments Yes 0 (1 standard drink = 0.6 oz pur e alcohol) occasional Sex and Gender Information Value Date Recorded Sex Assigned at Not on file Gender Identity Not on file Sexual Orientation Not on file documented as of this encounter Progress Notes * Rupa Castellanos RPH - 01/15/2024 1:55 PM EDT Clinical Management Plan: Discontinuation of Therapy Specialty Pharmacy Consultation; Rupa Castellanos RPH Comprehensive Medication Management (CMM) Venkata Patelahan [address] [address] Telephone Information: Is the patient transferring services to a different Specialty Pharmacy, discontinuing the medication, or modifying current Specialty services? Discontinuing Medication (Optional) If modifying Specialty services, patient unenrolls from: Medication: Humira Reason for discontinuation or transfer of services: Therapy discontinued Approximate date of discontinuation, modification, or transfer of services: 01/15/24 Patient's response to therapy: subtherapeutic Summary of services provided by [facility] Specialty: Benefits investigation, medication access assistance, initial clinical assessment, follow up clinical assessment(s), refill management, care plan reviewprior to dispensing, and 16/04 access to an on-call specialty pharmacist Summary of on-going needs: will continue with cosentyx Referral for additional services (if applicable): no Is patient aware of referral? no Instructions provided to patient about discharge/transfer: no Provider aware of discontinuation or transfer: Yes Patient understands no changes to current drug regimen were made at the appointment and that [facility] isproviding recommendations (summary located at top of note) for provider review and follow up. Of note, if transferring to another specialty pharmacy, a copy of patient's medication profile was offered to accepting pharmacy. Rupa Castellanos RPH 01/15/24 1:55 PM documented in this encounter Plan of Treatment Not on file documented as of this encounter Visit Diagnoses Not on filedocumented in this encounter Care Teams Mounted Police Officer Relationship Specialty Start Date End Date Jeanne Trevizo, HOME THEATER INSTALLER [place] [facility] [address] PCP - General Family Medicine 01/20/22 documented as of this encounter
--- OUTSIDE RECORDS SUMMARY | 2024-06-16 15:22 | XMS_ITS | Encounter Summary ---
Author Organization [facility] [place] [address] Care Team Providers Care Retort Setter Name Role Phone Jeanne Trevizo APRN Primary Care Provider [phone] Reason for Visit * Reason Comments Specialty Refill Management Encounter Details Date Type Department Care Team (Late st Contact Info) Description 12/25/2023 Specialty [place] [phone] Fallon Arnold CPHT Social History Tobacco Use [...] Progress Notes * Fallon Arnold CPHT - 12/25/2023 12:53 PM EDT Clinical Management Plan: Refill Specialty Pharmacy Consultation; Fallon Arnold CPHT Comprehensive Medication Management (CMM) Venkata Zhao is a 38 y.o. (1985) male who was contacted in regard to a specialty medication refill reminder. The patient requested a refill of Humira. A [...] Natural Rubber Medication Reconciliation Discrepancies (compared to [facility] med list) No Specialty Pharmacy Refill Questionnaire More data exists 12/25/2023 Refill Questionnaire What is the name of the specialty medication you are refilling? Humira Are you taking any new medications? No Any new medical condition? No Any new allergies? No Any new side effects that are bothersome? No What date will you need this fill by? 12/28/2023 Adherence: Any missed doses? No Patient understands no changes to current drug regimen were made. Fallon Arnold CPHT 12/25/23 12:53 PM documented in this encounter Plan of Treatment Not on file documented as of this encounter Visit Diagnoses Not on filedocumented in this encounter Care Teams Retort Setter Relationship Specialty Start Date End Date Jeanne Trevizo APRN [place] [address] PCP - General Family Medicine 01/20/22 documented as of this encounter
--- OUTSIDE RECORDS SUMMARY | 2024-06-16 15:22 | XMS_ITS | Encounter Summary ---
Author Organization [facility] [place] [address] Care Team Providers Care Music Artist Name Role Phone Jeanne Trevizo APRN Primary Care Provider [phone] Encounter Details Date Type Department Care Team (Latest Contact Info) Description 03/21/2024 Specialty [place] [address] Fallon Arnold CPHT Refill Coordination - 28 day recurrence (secukinumab) [...] Progress Notes * Fallon Arnold CPHT - 03/21/2024 8:18 AM EDT Images from the original note were not included. Clinical Management Plan: Refill Specialty Pharmacy Consultation; Fallon Arnold CPHT Comprehensive Medication Management (CMM) Mr. Venkata Zhao is a 38 y.o. (1985) male who was contacted in regard to a specialty medication refill reminder. The patient requested a refill of Cosentyx. A review of the medication therapy [...] Medication Reconciliation Discrepancies (compared to [facility] med list) No Review Flowsheet 03/21/2024 8:16 AM Assessment What is the name of [...] date will you need this fill by? 03/23/2024 Willl not receive till 03/25, will inject then Adherence: Any missed doses? No Patient understands no changes to current drug regimen were made. Fallon Arnold CPHT 03/21/24 8:18 AM documented in this encounter Plan of Treatment Not on file documented as of this encounter Visit Diagnoses Not on filedocumented in this encounter Care Teams Music Artist Relationship Specialty Start Date End Date Jeanne Tre[place]izo [place] [address] PCP - General Family Medicine 01/20/22 documented as of this encounter
--- OUTSIDE RECORDS SUMMARY | 2024-06-16 15:22 | XMS_ITS | Clinical Summary ---
Author Organization [facility]ly [facility] Address [facility] [place] [address] Care Team Providers Care Composition Molder Name Role Phone Jeanne Trevizo APRN Primary Care Provider Allergies Active Allergy Reactions Criticality Noted Date Comments Latex, Natural Rubber 11/02/2021 Medications Medication Sig Dispensed Refills Start Date End Date Status LORazepam (Ativan) 0.5 mg Tablet Take 0.5 mg by mouth every 6 hours as needed for Anxiety. Active buPROPion SR (Wellbutrin SR) 100 mg tablet sustained-release 12 hr Take 100 mg by mouth every morning. Active lithium 600 mg Capsule Take 2 capsules by mouth nightly. 180 capsule 11/07/2021 Active Melatonin 5 mg Capsule Take 2 capsules by mouth nightly. Take 2 at bedtime 180 capsule 11/07/2021 Active cholecalciferol, Vitamin D3, 25 mcg (1,000 unit) Capsule Take 1 capsule by mouth daily. 90 capsule 11/07/2021 Active clindamycin (CLEOCIN T) 1 % LotionIndications :Folliculitis APPLY TO THE AFFECTED AREA(S) TOPICALLY 1 TO 2 TIMES DAILY 60 mL 08/25/2022 Active doxycycline monohydrate (Monodox) 100 mg capsuleIndication s:Hidradenitis suppurativa TAKE ONE CAPSULE BY MOUTH ONCE A DAY 60 capsule 02/13/2023 Active secukinumab (Cosentyx UnoReady Pen) 300 mg/2 mL (150 mg/mL) Pen Injector Inject the contents of one pen (300 mg) under the skin once on weeks 0, 1, 2, 3, and 4, then once every four weeks thereafter. 8 mL 01/09/2024 Active secukinumab (Cosentyx UnoReady Pen) 300 mg/2 mL (150 mg/mL) Pen Injector Inject 300 mg subcutaneously every 28 days. 2 mL 5 01/09/2024 Active Active Problems Problem Noted Date Diagnosed Date Hidradenitis suppurativa 02/14/2024 Bipolar 1 disorder 11/02/2021 NIA (obstructive sleep apnea) 11/02/2021 Encounters Date Type Department Care Team Description 06/11/2024 Specialty [place] [phone] Fransico Shankar [facility] Started Refill Coordination - 28 day recurrence (secukinumab) for Dermatology 05/13/2024 Specialty [place] [phone] Fransico Shankar [facility] Refill Coordination - 28 day recurrence (secukinumab) for Dermatology 05/09/2024 Refill Dermatology at [facility] [address] [phone] Shannan Alfaro MD 05/08/2024 Telephone Dermatology at [facility] [address] [place] [address] Shannan Alfaro MD 05/07/2024 Telephone Dermatology at [facility] [address] [place] [address] Shannan Alfaro MD 04/11/2024 Specialty [place] [phone] Glynn Nunez, [facility] Refill Coordination - 28 day recurrence (secukinumab) for Dermatology 03/21/2024 Specialty [place] [address] Fallon Arnold, [facility] Refill Coordination - 28 day recurrence (secukinumab) for Dermatology from Last 3 Months Immunizations Name Administration Dates Next Due Influenza Quadrivalent, Preservative Free 2020 Influenza Unspecified Formulation 08/03/2020 Tdap 07/15/2015 Family History Relation Status Comments Father Alive Mother Alive Social History Tobacco Use Types Packs/Day Years Used Date Smoking Tobacco: Never Smokeless Tobacco: Never Alcohol Use Standard Drinks/Week Comments Yes 0 (1 standard drink = 0.6 oz pur e alcohol) occasional Sex and Gender Information Value Date Recorded Sex Assigned at Not on file Gender Identity Not on file Sexual Orientation Not on file Last Filed Vital Signs Vital Sign Reading Time Taken Comments Blood Pressure 139/68 11/02/2021 2:30 PM EST Pulse 86 11/02/2021 2:30 PM EST Temperature 36.9 ??C (98.5 ??F) 11/02/2021 2:30 PM ES T Respiratory Rate 16 11/02/2021 2:30 PM EST Oxygen Saturation 99% 11/02/2021 2:30 PM EST Inhaled Oxygen Concentration - - Weight 186.4 kg (411 lb) 11/02/2021 2:30 PM EST Height 180.3 cm (5' 11) 11/02/2021 2:30 PM EST Body Mass Index 57.32 11/02/2021 2:30 PM EST Plan of Treatment Health Maintenance Due Date Last Done Comments Lipid Screening 2005 Hepatitis B vaccine (0-59 yrs) (1) 2006 Covid-19 Vaccine ( - 2022-24 season) 2024 Influenza (Flu) vaccine (1 of 1 - Influenza standard series) 05/25/2024 05/30/2021, 08/03/2020 Tetanus vaccine 07/15/2025 07/15/2015 Tdap adult Completed 07/15/2015 HIV screen Addressed 11/05/2020 (Outs jack per patient (enter details in comments)) Overridden with the intention of not completing the topic Hepatitis C Screening Completed 03/28/2023 , 11/05/2020 (Outside per patient (enter details in comments)) Procedures Procedure Name Priority Date/Time Associated Diagnosis Comments HEPATITIS C ANTIBODY Routine 03/28/2023 3:59 PM EDT Hidradenitis suppurativa High risk medication use from Last 3 Months or Most Recently Relevant to Health Maintenance Results * Hepatitis C Antibody (03/28/2023 3:59 PM EDT) Hepatitis C Antibody Negative Negative [facility] Blood 03/28/2023 3:59 PM EDT 03/28/2023 4:09 PM EDT Narrative Resulting Agency Comment Spec In Lab Flaquita Chavez MD CHEMISTRY ORDERABLES [facility] [place] [address] from Last 3 Months or Most Recently Relevant to Health Maintenance Care Teams Composition Molder Relationship Specialty Start Date End Date Jeanne Trevizo, [employer] SOFTWARE DEVELOPMENT ENGINEER [address] [place] [address] PCP - General Family Medicine 01/20/22
--- OUTSIDE RECORDS SUMMARY | 2024-06-16 15:22 | XMS_ITS | Encounter Summary ---
Author Organization [facility] [place] [address] Care Team Providers Care Care Transition Mgr Name Role Phone Jeanne Trevizo APRN Primary Care Provider [phone] Encounter Details Date Type Department Care Team (Late st Contact Info) Description 10/04/2023 Telephone Dermatology at [facility] [address] [place] [address] Josse Cantor MD [facility] [address] [place] [address] Social History Tobacco Use Types Packs/Day Years [...] * Telephone Encounter - Sanna Choudhury - 10/04/2023 9:50 AM EST Received call for Neeta at [facility] that p/a needed to be sent to [facility] RX phone number is [phone] and fax is [phone]. documented in this encounter Plan of Treatment Not on file documented as of this encounter Visit Diagnoses Not on filedocumented in this encounter Care Teams Care Transition Mgr Relationship Specialty Start Date End Date Jeanne Trevizo APRN [address] [place] [address] PCP - General Family Medicine 01/20/22 documented as of this encounter
--- OUTSIDE RECORDS SUMMARY | 2024-06-16 15:22 | XMS_ITS | Encounter Summary ---
Author Organization [facility] [place] [address] Care Team Providers Care Cosmetic Assembler Name Role Phone Jeanne Trevizo APRN Primary Care Provider [phone] Encounter Details Date Type Department Care Team (Late st Contact Info) Description 09/27/[address] [place] [address] Josse Cantor MD [facility] [address] NARAYANA[place] [address] Social History Tobacco Use Types Packs/Day Years [...] on filedocumented in this encounter Care Teams Cosmetic Assembler Relationship Specialty Start Date End Date Jeanne Trevizo APRN [facility] [address] [address] PCP - General Family Medicine 01/20/22 documented as of this encounter
--- OUTSIDE RECORDS SUMMARY | 2024-06-16 15:23 | XMS_ITS | Encounter Summary ---
Author Organization [facility] Address [address] [place] [address] Care Team Providers Care De Icer Element Winder Name Role Phone Rita Kahn DO Unavailable [phone] Tremaine Shankar MD Primary Care Provider + Reason for Visit * Reason Comments New Patient Visit Telemedicine Video Visit Encounter Details Date Type Department Care Team (Late st Contact Info) Description 12/21/2020 13:30 EDT Telemedicine [facility] Sleep Program - [address] [place], [place] [phone] Rita Mayfield NP 1 [facility] [address] [place] [address] Obstructive sleep apnea (Primary Dx) Social History Tobacco Use Types Packs/Day Years Used Date Smoking Tobacco: Former Cigarettes 0 8.9 2 005 - 08/28/2013 Smokeless Tobacco: Never Alcohol Use Standard Drinks/Week Comments Yes 0 (1 standard drink = 0.6 oz pur e alcohol) 2 PHQ-2 Answer Date Recorded PHQ-2 SUBTOTAL 0 09/21/2020 Hunger Vital Sign Answer Date Recorded Worried About Running Out of Food in the Last Ye ar Sometimes true 06/01/2020 Ran Out of Food in the Last Year Never true 06/01/2020 Interpersonal Safety Answer Date Record ed Physically Hurt Never 04/25/2020 Verbally Threaten Not on file 04/25/2020 Sex and Gender Information Value Date Recorded Sex Assigned at Not on file Gender Identity Not on file Sexual Orientation Not on file documented as of this encounter Last Filed Vital Signs Vital Sign Reading Time Taken Comments Blood Pressure - - Pulse - - Temperature - - Respiratory Rate - - Oxygen Saturation - - Inhaled Oxygen Concentration - - Weight 172.4 kg (380 lb) 12/21/2020 1324 EDT per pt Height - - Body Mass Index 53 09/23/2020 1240 EST documented in this encounter Functional Status Functional Status Response Date of Assess ment Because of a physical, menta l, or emotional condition, does this person have difficulty doing errands alone such as visiting a doctor's office or shopping? No 04/22/2018 Cognitive Status Response Date of Assessm ent Because of a physical, menta l, or emotional condition, does this person have serious difficulty concentrating, remembering, or making decisions? No 04/22/2018 documented as of this encounter Progress Notes * Rita Becker APRN - 12/21/2020 1330 EDT [facility] Date of Service: 12/21/2020 Name: Venkata Zhao : 1985 TELEMEDICINE VIDEO VISIT Today's visit was provided through telemedicine video conferencing: The location of the patient : Home The location of the provider: Office The following staff and their role did participate in today's encounter: Rita Becker APRN The concept of ???Telemedicine?? has been described to the patient.? Patient has been informed of the anticipated benefits and possible risks.? Patient understands the information provided regardingtelemedicine, has had the opportunity to ask questions about this information, and all questions have been answered to patient???s satisfaction. Patient consents for the use of telemedicine in his/her medical care and authorizes the transmission of any relevant medical information to providers and their staff involved in patient???s medical or mental health care. Subjective: Chief Complaint(s): Obstructive Sleep Apnea HPI: Venkata Zhao is a 35 y.o. male w/hx/o bipolar disorder, anxiety, obesity, and allergic rhinitis, who presents to the [facility] on 12/21/2020 for follow-up of NIA on CPAP therapy.Pt is unaccompanied today. Pt was diagnosed with NIA via HSAT in 2015 with an ERICK of 31. He underwent home PAP titration and has been using CPAP therapy since that time. He was last seen in clinic 01/19/[address] Vázquez, at which time he was doing well with CPAP. Pt returns today for a NPV to reestablish care. Patient reports that he has been using CPAP regularly since he was initially diagnosed with NIA. Hehas not been having any issues, but he presents today to reestablish care and also because he is due for a new CPAP machine. He uses CPAP every night, for the entire night. With CPAP use, he has improved quality of sleep and feels more rested during the day. Prior to CPAP, he snored, had pauses in his breathing during sleep, and would awaken gasping. All of these breathing symptoms resolved with CPAP use. He uses nasal pillows, which he finds comfortable, and does not note bothersome leaking. The pressure does not feel excessive or insufficient. He uses the humidifier and denies issues with oral dryness or nasal congestion. He sleeps with his , in a flat bed, with two pillows, on his side. He goes to bed at 10 PM and falls asleep quickly. He awakens once during the night, but is able to go right back to sleep. He arises for the day at 8 AM and feels refreshed upon awakening. He takes Haldol, which makes him a bit sleepy during the day, but daytime sleepiness is not generally problematic. He takes a nap every dayfor less than 60 minutes, and finds this refreshing. He denies difficulty maintaining wakefulness while driving. He denies symptoms of bruxism or nocturnal diaphoresis. He rarely experiences nocturnal GERD. He denies kicking during sleep, somnambulism, or symptoms of restless leg syndrome. He endorses occasional somniloquy, even with CPAP use. He does not wake up in the morning with headaches and he denies difficulty with his memory or ability to concentrate. He takes melatonin every night at bedtime. He does not take stimulant medications. He drinks a dietsoda with lunch on some days, but does not have any other regular caffeine intake. He has one alcoholic beverage about once per month. He does not use tobacco. He smokes marijuana recreationally every day, typically mid-morning. He does not use other substances. He has been working on weight loss, and is seeing a foot specialist. His current weight is 380 pounds. His weight at the time of his HSAT in 2016 was 367 pounds. He exercises by walking his dogs regularly. Patient Active Problem List Diagnosis ??? Allergic rhinitis ??? Scalp cyst ??? NIA (obstructive sleep apnea) ??? Adult BMI 40.0-44.9 kg/sq m ([facility]) ??? Primary insomnia ??? Anxiety ??? Acute left ankle pain ??? Encounter for long-term (current) use of other medications ??? Bipolar I disorder, current or most recent episode manic, with psychotic features ([facility]) No past medical history on file. Current Outpatient Medications Medication ??? benztropine (COGENTIN) 0.5 mg tablet ??? haloperidoL (HALDOL) 5 mg tablet ??? lithium 600 mg capsule ??? melatonin 3 mg tablet ??? VITAMIN D3 25 mcg (1,000 unit) capsule No current facility-administered medications for this visit. Objective: Wt (!) 172.4 kg (380 lb) Comment: per pt BMI 53.00 kg/m?? Wt Readings from Last 5 Encounters: 12/21/20 (!) 172.4 kg (380 lb) 10/03/20 (!) 174.3 kg (384 lb 3.2 oz) 09/02/20 (!) 176 kg (388 lb) 09/29/19 (!) 178.2 kg (392 lb 12.8 oz) 03/07/19 (!) 169.5 kg (373 lb 9.6 oz) Physical Exam: General: Well developed, well nourished male who is in no apparent distress Head: Atraumatic, normocephalic Mouth: The lips are without lesion. Neurologic: Speech fluent. Psych: Alert, oriented and cooperative, normal attention span and concentration. Relevant Data: COMPLIANCE REPORT: Current CPAP Settings: Machine: Airsense 10 Autoset Min Pressure: 5 cm H2O Max Pressure: 15 cm H2O Mask Type: nasal pillows Most Recent Usage Statistics (11/13/20-12/12/20): Days Used: 30/; 100% Median usage (days used): 11 hours 10 minutes Maximum Pressure: 9.9cmH2O 95th Percentile Pressure: 8.5cmH2O Median Pressure: 6.6cmH2O Leak: not excessive AHI: 0.4 PSG Data: Study Type: Home Sleep Apnea Test 10/15/15 Impression: * Severe Obstructive Sleep Apnea (NIA). ERICK 31.0 (AASM 2011). ERICK 20.3 (AASM 2007). Avg 02 Sat: 95 %; Roberto Carlos 02 Sat: 90 %; Time with 02 Sat < 88%: 1 minutes. Home PAP Titration 11/02/15 Assessment: 35 y.o. male who presented to the [facility] on 12/21/2020 for follow-up of NIA on CPAP therapy. Patient was diagnosed with NIA in 2015 via HSAT, and has been using CPAP consistently since that time. He is doing well with CPAP, with symptomatic improvement (improved quality of sleep, resolution of snoring, more rested during the day), excellent compliance, and good control of NIA (residual AHI 0.4). He is pleased with CPAP, and plans to continue with regular usage. He is due for a new machine, so an order for this will be placed today. Otherwise, no changes are required. Recommend continuing to maintain consistent sleep and wake times and allow at least 8 hours for total sleep per night,all with CPAP use. Recommend not consuming alcohol in proximity to sleep and not smoking anything. He will continue to follow-up with his other providers for medication management. Encouraged him to continue with regular exercise as tolerated, and discussed the importance of weight loss. Recommendations: ?? Continue auto CPAP 5-15cm H2O with all sleep ?? Patient counselin. Avoidance of drowsy driving and countermeasures discussed. 2. Discussed importance of weight loss. 3. Good sleep hygiene and the importance of consistent sleep and wake times, as well as avoiding orlimiting the use of caffeine/EtOH were discussed. 4. Reminded to replace disposable supplies at regular intervals. Pt is to notify me if there are any impediments to CPAP use, or if drowsiness becomes more problematic, otherwise I???ll plan a follow-up visit in 6 months. I spent a total of 35 minutes on the date of this encounter meeting with the patient and reviewing documentation/coordinating care as described in the above note. No procedures were performed at the time of the visit. Rita Becker APRN 12/21/2020 documented in this encounter Plan of Treatment Not on file documented as of this encounter Goals Goal Patient Goal Type Associated Problems Recent Progress Patient-Stated? Author Weight Loss General Yes Brittaney Gutiérrez MD PhD Note: Goal: Participate in the Community Health Team program to lose >10 lbs of weight Confidence level (1= Not very confident; 10 = Very confident): 6 Sources of support: Community health Team, Family and Therapist Barriers to change: None Counseling was provided to assess readiness, confidence and/or barriers to self- care. To learn more about your health please visit: [email or web address]-Resources/Uuqubyexl-Rlnwev-Dc [facility] e-Center.aspx documented as of this encounter Visit Diagnoses Diagnosis Obstructive sleep apnea- Primary Obstructive sleep apnea (adult) (pediatric) documented in this encounter Historical Medications * This list may reflect changes made after this encounter. Medication Sig Dispensed Refills Start Date End Date melatonin 3 mg tablet Take 6 mg by mouth at bedtime. 10/27/2020 VITAMIN D3 25 mcg (1,000 unit) capsule Take 1,000 Units by mouth daily. 10/27/2020 benztropine (COGENTIN) 0.5 mg tablet take 1 tablet by mouth 2 times every day 10/27/2020 haloperidoL (HALDOL) 5 mg tablet Take 1/2 tab in the morning at at noon and 2 tabs at bedtime. 11/22/2020 lithium 600 mg capsule take 1 capsule by mouth 2 times every day 11/25/2020 added in this encounter Orders Equipment Count Last Ordered Date First Orde red Date CPAP/BIPAP MACHINE ORDER 1 12/21/2020 documented in this encounter Care Teams De Icer Element Winder Relationship Specialty Start Date End Date Rita Kahn DO [address] [place] [address] PCP - Alternate 02/13/18 03/16/21 Tremaine Shankar MD 1 [facility] [address] [place] [phone] PCP - General 06/25/18 03/29/22 documented as of this encounter
--- OUTSIDE RECORDS SUMMARY | 2024-06-16 15:23 | XMS_ITS | Encounter Summary ---
Author Organization [facility] [place] [address] Care Team Providers Care Chopper Gun Operator Name Role Phone None Primary Care Provider Unavailabl e Encounter Details Date Type Department Care Team (Latest Contact Info) Description 11/02/2021 Travel Social History Tobacco Use Types Packs/Day [...] on filedocumented in this encounter Care Teams Chopper Gun Operator Relationship Specialty Start Date End Date None None PCP - General 08/16/10 01/19/22 documented as of this encounter
--- OUTSIDE RECORDS SUMMARY | 2024-06-16 15:23 | XMS_ITS | Encounter Summary ---
Author Organization [facility] Address [address] [place] [address] Care Team Providers Care Maintenance Coordinator Name Role Phone Tremaine Shankar MD Primary Care Provider + Dallas Canas MD PhD Unavailable Unavailabl e Reason for Visit * Reason Onset Date Comments DME 05/26/2021 Encounter Details Date Type Department Care Team (Late st Contact Info) Description 05/26/2021 Telephone [facility] Sleep Program - [address] [place], [place] [id number] Rita Mayfield NP 1 [facility] [address] [place] [address] DME Social History Tobacco Use Types Packs/Day Years [...] on file documented as of this encounter Functional Status Functional Status Response [...] No 04/22/2018 documented as of this encounter Miscellaneous Notes * Telephone Encounter - Angelica Lance - 05/26/2021 1213 EDT PT called needing new supplies. States the DME is telling him he needs a new script to get supplies. documented in this encounter Plan of Treatment [...] learn more about your health please visit: [email or web address]/Pages/Wellness-Resources/Ktrpnhbdz-Uduvwe-Hy sourc e-Center.aspx documented as of this encounter Visit Diagnoses Diagnosis NIA (obstructive sleep apnea)- Primary Obstructive sleep apnea (adult) (pediatric) documented in this encounter Orders Equipment Count Last Ordered Date First Orde red Date CPAP/BIPAP GENERAL ORDER 1 05/26/2021 documented in this encounter Care Teams Maintenance Coordinator Relationship Specialty Start Date End Date Tremaine Shankar MD [address] [address] PCP - General 06/25/18 03/29/22 Dallas Canas MD PhD [address] [address] PCP - Alternate 03/17/21 03/29/22 documented as of this encounter
--- OUTSIDE RECORDS SUMMARY | 2024-06-16 15:23 | XMS_ITS | Encounter Summary ---
Author Organization [facility] Address [facility] [place] [address] Care Team Providers Care Sweatband Separator Name Role Phone Jeanne Trevizo APRN Primary Care Provider [phone] Reason for Visit * Reason Onset Date Comments Medication Refill 11/07/2021 Encounter Details Date Type Department Care Team (Late st Contact Info) Description 11/07/2021 Refill Internal Medicine at [facility] [address] [place] [address] [facility] [address] [place] [address] Social History Tobacco Use Types Packs/Day Years [...] encounter Miscellaneous Notes * Telephone Encounter - Lazara Champagne RMA - 11/07/2021 11:22 AM EST Prescription Refill Request Prescription(s) Requested: Requested Prescriptions Pending Prescriptions Disp Refills ??? lithium 600 mg Capsule Sig: Take 2 capsules by mouth nightly. ??? Melatonin 5 mg Capsule Sig: Take 2 capsules by mouth nightly. Take 2 at bedtime ??? cholecalciferol, Vitamin D3, 25 mcg (1,000 unit) Capsule Sig: Take by mouth. Date of Encounter last in This Dept (If over a year and no apt scheduled send to secretaries to schedule): 11/02/21 w/Dallas Simpson PA Next Encounter in This Dept: Visit date not found Date of Last Refill (for each medication): Tull- no refill date listed. Melatonin - no refill date listed. Vitamin D3- no refill date listed. Medication category req. lab studies No results found for: 25OHVITD * Telephone Encounter - Rabia Kennedy - 11/07/2021 8:33 AM EST Patient has two days left of lithium 600 mg Capsule. Is out of the melatonin and vitamin D. Is a new patient- please call if any issues and/or to verify it can be filled. [phone] documented in this encounter Plan of Treatment Not on file documented as of this encounter Visit Diagnoses Not on filedocumented in this encounter Care Teams Sweatband Separator Relationship Specialty Start Date End Date Jeanne [place] [address] PCP - General Family Medicine 01/20/22 documented as of this encounter
--- OUTSIDE RECORDS SUMMARY | 2024-06-16 15:23 | XMS_ITS | Encounter Summary ---
Author Organization [facility] Address [address] [place] [address] Care Team Providers Care Disability Representative Name Role Phone Rita Kahn DO Unavailable [phone] Tremaine Shankar MD Primary Care Provider + Encounter Details Date Type Department Care Team (Late st Contact Info) Description 12/26/2020 Documentation Visit [facility] Adult Primary [facility] - [place] [address] [place] [address] Rita Martinez, RD [address] [facility] [address] [place] [address] Social History Tobacco Use Types Packs/Day Years [...] of this encounter Progress Notes * Rita Carnes RD - 12/26/2020 1555 EDT [facility] Adult Primary Care & Family Medicine Registered Dietitian Encounter Date of encounter: 12/26/2020 Venkata was not able to make today's visit w/ RD. RD called and left message to reschedule; provideddirect contact information for primary care scheduling team. Total Time: 5 mintues Thank you for your referral, Rita Carnes, MS, RD, CD Clinical Dietitian [facility] Adult Primary Care & Family Medicine documented in this encounter Plan of Treatment [...] learn more about your health please visit: https://www.[facility].org/medcenter/Pages/Wellness-Resources/Rzgtpervo-Dgwrxn-Sn sourc e-Center.aspx documented as of this encounter Visit Diagnoses Not on filedocumented in this encounter Care Teams Disability Representative Relationship Specialty Start Date End Date Rita Kahn DO [address] [place] [phone] PCP - Alternate 02/13/18 03/16/21 Tremaine Shankar MD 1 [facility] Level [address] [place] [phone] PCP - General 06/25/18 03/29/22 documented as of this encounter
--- OUTSIDE RECORDS SUMMARY | 2024-06-16 15:23 | XMS_ITS | Encounter Summary ---
Author Organization [facility] Address [address] [place] [address] Care Team Providers Care Protection Specialist Name Role Phone Criss Rita Eder DO Unavailable [phone] Tremaine Shankar MD Primary Care Provider + Encounter Details Date Type Department Care Team (Late st Contact Info) Description 10/09/2020 Transcribe Orders [facility] - [employer] [address] [place] [address] Tremaine Shankar MD 1 [facility] Level [address] [place] [address] COVID-19 ruled out (Primary Dx) Social History Tobacco Use Types [...] on file Sexual Orientation Not on file COVID-19 Exposure Response Date Recorded In the last month, have you been in contact with someone who was confirmed or suspected to have Coronavirus / COVID-19? No / Unsure 09/21/2020 7:59 EST documented as of this encounter Functional Status [...] of this encounter Progress Notes * Doreen Carrera - 10/09/2020 1627 EST c documented in this encounter Plan of Treatment Scheduled Orders Name Type Priority Associated Diagnoses Orde r Schedule COVID-19 TESTING Microbiology Routine COVID-19 ruled out Expected: 10/09/2020 (Approximate), Expires: 10/09/2021 documented as of this encounter Goals Goal [...] learn more about your health please visit: https://www.[facility].org/medcenter/Pages/Wellness-Resources/Lghbdjmxg-Erlrba-Hd sourc e-Center.aspx documented as of this encounter Visit Diagnoses Diagnosis COVID-19 ruled out- Primary documented in this encounter Care Teams Protection Specialist Relationship Specialty Start Date End Date Rita Kahn DO [address] [place] [phone] PCP - Alternate 02/13/18 03/16/21 Tremaine Shankar MD 1 [facility] 1 [place] [address] PCP - General 06/25/18 03/29/22 documented as of this encounter
--- OUTSIDE RECORDS SUMMARY | 2024-06-16 15:23 | XMS_ITS | Encounter Summary ---
Author Organization [facility] Address [address] [place] [address] Care Team Providers Care Box Estimator Name Role Phone Rita Kahn DO Unavailable [phone] Tremaine Shankar MD Primary Care Provider + Reason for Visit * Reason Onset Date Comments Appointment Related 10/08/2020 Encounter Details Date Type Department Care Team (Late st Contact Info) Description 10/08/[address] [address] Rita Martinez, RD 118 [facility] [address] [place] [phone] Appointment Related Social History Tobacco Use Types Packs/Day Years [...] encounter Miscellaneous Notes * Telephone Encounter - Kayla Fitch - 10/08/2020 1156 EST Reason for Call: Appointment Related Summary/Symptoms: Patient would like to schedule another visit. Can you reach out to him. Thank you. * Telephone Encounter - Collin Cross - 10/08/2020 1038 EST Patient called because provider dropped out of zoom meeting fdc through appointment. Was unableto reach provider to reestablish connection. Patient requested rescheduling appointment. Please contact patient to reschedule. documented in this encounter Plan of Treatment [...] learn more about your health please visit: https://www.[facility].org/medcenter/Pages/Wellness-Resources/Vegpmgnno-Uisfwo-Yy [facility] e-Center.aspx documented as of this encounter Visit Diagnoses Not on filedocumented in this encounter Care Teams Box Estimator Relationship Specialty Start Date End Date Rita Kahn DO [address] [place] [address] PCP - Alternate 02/13/18 03/16/21 Tremaine Shankar MD 1 [facility] 1 [place] [phone] PCP - General 06/25/18 03/29/22 documented as of this encounter
--- OUTSIDE RECORDS SUMMARY | 2024-06-16 15:23 | XMS_ITS | Encounter Summary ---
Author Organization [facility] Address [address] [place] [address] Care Team Providers Care Financial Administrator Name Role Phone Rita Kahn DO Unavailable [phone] Tremaine Shankar MD Primary Care Provider + Dallas Canas MD PhD Unavailable Unavailabl e Reason for Visit * Reason Onset Date Comments Appointment Related 10/06/2020 Encounter Details Date Type Department Care Team (Late st Contact Info) Description 10/06/2020 Telephone [facility] [place] [address] [place], [place] [phone] Rita Mayfield, MANAGER COMMUNITY DEVELOPMENT 1 [facility], [address] [place] [address] Appointment Related Social History Tobacco Use Types [...] encounter Miscellaneous Notes * Telephone Encounter - Brooklyn Toth MA - 10/06/2020 1044 EST Called pt x1 to schedule NPV/Consult.spoke to pt Pt scheduled 11/19/20 at 8:00am REMOTE ACCESS Meeting ID: [id number] Password: [id number] documented in this encounter Plan of Treatment [...] learn more about your health please visit: https://www.[facility].org/medcenter/Pages/Wellness-Resources/Bgexhqepp-Cytdof-Xp [facility] e-Center.aspx documented as of this encounter Visit Diagnoses Not on filedocumented in this encounter Care Teams Financial Administrator Relationship Specialty Start Date End Date Rita Kahn DO [address] [place] [address] PCP - Alternate 02/13/18 03/16/21 Tremaine Shankar MD [address] [phone] PCP - General 06/25/18 03/29/22 Dallas Canas MD PhD [address] [phone] PCP - Alternate 03/17/21 03/29/22 documented as of this encounter
--- OUTSIDE RECORDS SUMMARY | 2024-06-16 15:23 | XMS_ITS | Encounter Summary ---
Author Organization [facility] [place] [address] Care Team Providers Care Fish Hatchery Specialist Name Role Phone Jeanne Trevizo APRN Primary Care Provider Encounter Details Date Type Department Care Team (Late st Contact Info) Description 01/26/2022 Telephone Dermatology at [facility] [address] [place] [address] Carlitos Cantor MD [facility] DR [address] [address] Social History Tobacco Use Types Packs/Day Years [...] encounter Miscellaneous Notes * Telephone Encounter - Najma Donovan - 01/26/2022 1:27 PM EDT Venkata Zhao called to let you know that he is having a flare of HS and has a new bump on his Rbutt cheek. Venkata did not know if he could be seen sooner? Best number to reach the patient back is [phone]. documented in this encounter Plan of Treatment Not on file documented as of this encounter Visit Diagnoses Not on filedocumented in this encounter Care Teams Fish Hatchery Specialist Relationship Specialty Start Date End Date Jeanne Trevizo, BREAKER [place] [address] PCP - General Family Medicine 01/20/22 documented as of this encounter
--- OUTSIDE RECORDS SUMMARY | 2024-06-16 15:23 | XMS_ITS | Encounter Summary ---
Author Organization [facility] [place] [address] Care Team Providers Care Truck Headlight Assembler Name Role Phone None Primary Care Provider Unavailabl e Encounter Details Date Type Department Care Team (Late st Contact Info) Description 10/17/2021 Abstract Internal Medicine at [facility] [address] [place] [address] Kiara Jim, [facility] Social History Tobacco Use Types Packs/Day Years Used Date Smoking Tobacco: Never Assessed Sex and Gender Information Value Date Recorded Sex Assigned at Not on file Gender Identity Not on file Sexual Orientation Not on file documented as of this encounter Plan of Treatment Not on file documented as of this encounter Visit Diagnoses Not on filedocumented in this encounter Care Teams Truck Headlight Assembler Relationship Specialty Start Date End Date None None PCP - General 08/16/10 01/19/22 documented as of this encounter
--- OUTSIDE RECORDS SUMMARY | 2024-06-16 15:23 | XMS_ITS | Encounter Summary ---
Author Organization [facility] Address [address] [place] [address] Care Team Providers Care Private Duty Rn Name Role Phone Tremaine Shankar MD Primary Care Provider + Dallas Canas MD PhD Unavailable Unavailabl e Reason for Visit * Reason Onset Date Comments Appointment Related 07/07/2021 Encounter Details Date Type Department Care Team (Late st Contact Info) Description 07/07/2021 Telephone [facility] Sleep Program - [address] [place] [address] [place], [place] [phone] Rita Mayfield NP 1 [facility], [address] [place] [address] Appointment Related Social History Tobacco [...] Telephone Encounter - Brooklyn Toth MA - 07/07/2021 1506 EDT Contacted pt. x3 to schedule follow-up/Compliance with Rita Becker (recall list) Left VM w/ details for pt. to call back to schedule documented in this encounter Plan of Treatment [...] learn more about your health please visit: https://[facility].org/medcenter/Pages/Wellness-Resources/Mnikjzgeu-Jgaayb-Ln sourc e-Center.aspx documented as of this encounter Visit Diagnoses Not on filedocumented in this encounter Care Teams Private Duty Rn Relationship Specialty Start Date End Date Tremaine Shankar MD [address] [phone] PCP - General 06/25/18 03/29/22 Dallas Canas MD PhD [address] [phone] PCP - Alternate 03/17/21 03/29/22 documented as of this encounter
--- OUTSIDE RECORDS SUMMARY | 2024-06-16 15:23 | XMS_ITS | Encounter Summary ---
[place] [address] Care Team Providers Care Fuel Island Attendant Name Role Phone None Primary Care Provider Unavailabl e Reason for Referral * Consultation (Routine) - Closed Specialty Diagnoses / Procedures Referred By Contac t Referred To Contact Dermatology Diagnoses [place] [address] [facility] Dermatology [address] [place] [address] Referral ID Status Reason Start Date Expiration Date V isits Requested Visits Authorized [id number] Closed Consult, Test & Treat 11/02/2021 11/02/2022 1 1 * Psychiatric (Routine) - Closed Specialty Diagnoses / Procedures Referred By Contac t Referred To Contact Psychiatry Diagnoses Bipolar 1 [place] [address] [facility] [place] [address] Referral ID Status Reason Start Date Expiration Date V isits Requested Visits Authorized [id number] Closed Specialty Service Requested 11/02/2021 11/02/2022 1 1 Reason for Visit * Reason Comments Follow-up Needs new psychiatri st, derm, spots on top head past 3 weeks, had growth removed in past Encounter Details Date Type Department Care Team (Late st Contact Info) Description 11/02/2021 2:20 PM EST Office Visit Internal Medicine at [facility] [address] [place] [phone] Dallas Simpson PA [facility] [place] [address] Bipolar 1 disorder; Rash Social History Tobacco Use Types Packs/Day Years [...] Mass Index 57.32 11/02/2021 2:30 PM EST documented in this encounter Progress Notes * Dallas Simpson PA - 11/02/2021 2:20 PM EST Subjective Patient ID: Venkata Zhao is a 36 y.o. male. Chief Complaint Patient presents with ??? Follow-up Needs new psychiatrist, derm, spots on top head past 3 weeks, had growth removed in past Patient Active Problem List Diagnosis Code ??? Bipolar 1 disorder F31.9 ??? NIA (obstructive sleep apnea) G47.33 HPI Bipolar 1 disorder- needs to establish with a psychiatrist. He was diagnosed in 2011. He feels his symptoms are currently well controlled. He has been hospitalized multiple times, most recently in 2019. He has new growths on his head and has been scratching them a lot. He wants to find out what they are so they can be resolved. He denies any history of skin cancer. He did have an unknown lesion removed from his scalp in the past. Objective Physical Exam Vitals reviewed. Constitutional: General: He is not in acute distress. Appearance: He is obese. Skin: Comments: He has multiple scabs on his scalp which appear to be areas where he has scratched. I didsee a papular lesion that had a slight yellow discoloration on the left side of his scalp. Neurological: Mental Status: He is alert. Psychiatric: Mood and Affect: Mood normal. Behavior: Behavior normal. Patient Vitals for the past 24 hrs: Temp Pulse Resp BP SpO2 11/02/21 1430 36.9 ??C (98.5 ??F) 86 16 139/68 99 % Assessment & Plan Venkata was seen today for follow-up . Diagnoses and all orders for this visit: Bipolar 1 disorder - Referral to Psychiatry - CBC (with Diff); Future - Comprehensive metabolic panel (non-fasting); Future - [place] level; Future I will refer him to establish care with psychiatry. I will obtain labs to monitor his drug therapy in the meantime. Rash - Referral to Dermatology Causes rash is unclear. It may be a form of folliculitis, but given the scabs it is difficult to tell. I will refer him to dermatology for additional evaluation. documented in this encounter Plan of Treatment Scheduled Referrals Name Type Priority Associated Diagnoses Order Schedule Referral to Psychiatry Outpatient Referral Routine Bipolar 1 disorder Ordered: 11/02/2021 Referral to Dermatology Outpatient Referral Routine Rash Ordered: 11/02/2021 documented as of this encounter Visit Diagnoses Diagnosis Bipolar 1 disorder Bipolar I disorder, most recent episode (or current) unspecified Rash Rash and other nonspecific skin eruption documented in this encounter Care Teams Fuel Island Attendant Relationship Specialty Start Date End Date None None PCP - General 08/16/10 01/19/22 documented as of this encounter
--- OUTSIDE RECORDS SUMMARY | 2024-06-16 15:23 | XMS_ITS | Encounter Summary ---
Author Organization [facility] [place] [address] Care Team Providers Care Rim Roller Operator Name Role Phone Jeanne Trevizo APRN Primary Care Provider [phone] Reason for Visit * Reason Comments Medication Refill Encounter Details Date Type Department Care Team (Late st Contact Info) Description 02/11/[address] [facility] [address] [place] [address] Magali Son MD [facility] [address] [place] [address] Hidradenitis suppurativa Social History Tobacco Use Types Packs/Day Years [...] encounter Miscellaneous Notes * Telephone Encounter - Adeola Reed LPN - 02/12/2023 6:56 AM EDT Medication(s) requested to refill doxycycline Last visit: 10/12/22 Follow up recommended 3-6 months F/U Scheduled: not at this time Assessment/Plan for this/these medications: HS Special Considerations: needs follow up Order/orders pended and routed to Dr. Son for review and approval Appropriate to refill: pending MD approval. Pended one month supply until patient makes appointment documented in this encounter Plan of Treatment Not on file documented as of this encounter Visit Diagnoses Diagnosis Hidradenitis suppurativa Hidradenitis documented in this encounter Care Teams Rim Roller Operator Relationship Specialty Start Date End Date Jeanne Trevizo, MUSIC [place] [address] PCP - General Family Medicine 01/20/22 documented as of this encounter
--- OUTSIDE RECORDS SUMMARY | 2024-06-16 15:23 | XMS_ITS | Encounter Summary ---
Author Organization [facility] Address [address] [place] [address] Care Team Providers Care Project Lead Name Role Phone Rita Kahn DO Unavailable [phone] Tremaine Shankar MD Primary Care Provider + Reason for Visit * Reason Comments Nutrition Counseling Encounter Details Date Type Department Care Team (Late st Contact Info) Description 11/05/2020 11:00 EST Nutrition [address] [id number] Rita Martinez, RD [address] [facility] [address] [place] [phone] Adult BMI 40.0-44.9 kg/sq m ([facility]) (Primary Dx) Social History Tobacco Use Types [...] of this encounter Progress Notes * Rita Carnes, KEV - 11/05/2020 1100 EST [facility] Adult Primary Care & Family Medicine Registered Dietitian Follow up Encounter Date of visit: 11/05/2020 Venkata arrives at today's nutrition visit for continuation of nutrition care for Morbid obesity. The concept of Telehealth has been described to the patient.? Patient has been informed of the anticipated benefits and possible risks.? Patient understands the information provided regarding telehealth, has had the opportunity to ask questions about this information, and all questions have been answered to patient???s satisfaction. Patient consents for the use of telehealth in his/her/their nutrition care and authorizes the transmission of any relevant medical information to providers and their staff involved in patient???s medical or mental health care. TELEHEALTH VIDEO VISIT Today's visit was provided through telehealth VIDEO conferencing: The location of the patient : Home The location of the provider: Home The following staff and their role did participate in today's encounter visit: Rita Carnes RD Goals from previous nutrition visit: 10/22/20 PATIENT IDENTIFIED GOALS: weight loss, goal weight 350 lbs. Review intentions from today's visit. ?? PLAN: ?? 3 balanced, consistent meals per day w/ whole grains, lean protein, 5 servings non-starchy vegetables and 4 servings fruit ?? <10% total energy from saturated fat and increased focus on mono and polyunsaturated fats ?? <6 teaspoons (<24g) added sugar daily ?? <1500 mg sodium daily ?? Intentions from today's visit - ?? Look in refrigerator ?? Share cooking responsibilities ?? Take on some responsibilities of food shopping ?? 30-60 minutes aerobic and strength training exercise 3-5 days per week SUBJECTIVE: Venkata states some medication changes; shares he feels super drained and very low energy. Shares that his sister was recently discharged from [facility] for psychiatric - was in the hospital since June 2020 and is now with their mom. Venkata shares that this is something that is adding tohis low energy and emotions. 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 Is getting prepared to start work again on Sunday. Nutrition: Has not been wanting to cook lately; reflects he is able to cook, but is not feeling like doing a whole lot. Has been food shopping a few times in the last 2 weeks. Has been getting takeout most nights - Mimos, clam pasta w/ vegetables, [employer] - sandwich w/ lots of vegetables Stress: Continues with working with a therapist weekly. Shares that his sister was recently discharged from [facility] for psychiatric - was in the hospital since June 2020 and is now with their mom. Venkata shares that this is something that is adding to his low energy and emotions. 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 Shares that it can be challenging on Wednesdays when both he and his are working from home. Physical Activity: Walking with the dogs once per day around the neighborhood. OBJECTIVE: Nutrition Focused Physical Exam: Not completed, per provider discretion Anthropometrics: Wt Readings from Last 3 Encounters: 10/03/20 (!) 174.3 kg (384 lb 3.2 oz) 09/02/20 (!) 176 kg (388 lb) 09/29/19 (!) 178.2 kg (392 lb 12.8 oz) BP Readings from Last 3 Encounters: 10/04/20 109/58 09/29/19 110/70 04/09/19 110/80 Estimated body mass index is 53.59 kg/m?? as calculated from the following: Height as of 09/23/20: 180.3 cm (71). Weight as of 10/03/20: 174.3 kg (384 lb 3.2 oz). Labs: Lab Results Component Value Date WBC 7.22 09/21/2020 RBC 5.73 09/21/2020 HGB 16.2 09/21/2020 HCT 47.6 09/21/2020 MCV 83 09/21/2020 MCH 28.3 09/21/2020 PLT 211 09/21/2020 NA 139 09/21/2020 K 4.0 09/21/2020 CL 100 09/21/2020 CO2 25 09/21/2020 BUN 17 09/21/2020 CREATININE 0.79 09/21/2020 CALCIUM 9.7 09/21/2020 VITD 14.6 (L) 09/21/2020 Lab Results Component Value Date CHOL 163 09/21/2020 CHOL 120 04/07/2019 CHOL 138 10/13/2016 HDL 58 09/21/2020 HDL 51 04/07/2019 HDL 50 10/13/2016 LDLBASE 82 09/21/2020 LDLBASE 55 04/07/2019 LDLBASE 73 10/13/2016 TRIG 116 09/21/2020 TRIG 70 04/07/2019 TRIG 75 10/13/2016 CHOLHDL 2.8 09/21/2020 CHOLHDL 2.4 04/07/2019 CHOLHDL 2.8 10/13/2016 Lab Results Component Value Date HGBA1C 5.5 09/21/2020 HGBA1C 5.5 04/07/2019 HGBA1C 5.0 07/31/2016 Lab Results Component Value Date TSH 0.89 09/21/2020 Medications: No current outpatient medications on file. No current facility-administered medications for this visit. Drug-Nutrient Interactions - Not discussed at today's visit NUTRITION ASSESSMENT: Venkata Zhao arrives at today's visit for continuation of medical nutrition therapy for Morbid obesity Nutrition Diagnosis: Morbid Obesity ICD-10-CM ICD-9-CM 1. Adult BMI 40.0-44.9 kg/sq m ([facility]) Z68.41 V85.41 Etiology: History of imbalanced nutrition, inconsistent meal timing, physical inactivity and history of excessive energy intake Signs & Symptoms: Elevated BMI (see above), no updated weight today Intervention: MNT/Education: Engaged patient in conversation related to positive behavior change, self-management, goal setting and action planning using motivational interviewing and active listening. ?? Reviewed medical history, labs, and medications/supplements. ?? Reviewed dietary intake and physical activity. ?? Discussed health goals, including motivators and barriers. Discussed motivation for making healthy changes; explored beliefs about making change and ambivalence. RD utilized OK techniques including reflective listening, normalization, and eliciting change talk Discussed stages of change and readiness for change. MNT/Educational Materials Provided: None Learning Readiness and Receptivity to Nutrition Education: Receptive to education and demonstrated fair understanding; will likely require additional exposure and reinforcement STAGE OF CHANGE: Contemplation PATIENT IDENTIFIED GOALS: cook more at home, from scratch PLAN: ?? No specific plan Monitoring & Evaluation: RD to monitor dietary intake and physical activity, understanding of nutrition education and recommendations, nutrition related labs and vitals Total time spent with patient on nutrition counselin minutes Molecular Physicist used: no Thank you for your referral, Rita Carnes, MS, RD, CD Clinical Dietitian [facility] Adult Primary Care & Family Medicine documented [...] learn more about your health please visit: [email or web address]/Wellness-Resources/Vppmiivbe-Rrohyc-Rw sourc e-Center.aspx documented as of this encounter Visit Diagnoses Diagnosis Adult BMI 40.0-44.9 kg/sq m ([facility])- Primary Body Mass Index 40.0-44.9, adult documented in this encounter Care Teams Project Lead Relationship Specialty Start Date End Date Rita Kahn DO [address] [place] [phone] PCP - Alternate 02/13/18 03/16/21 Tremaine Shankar MD 1 [facility] [address] [place] [address] PCP - General 06/25/18 03/29/22 documented as of this encounter
--- OUTSIDE RECORDS SUMMARY | 2024-06-16 15:23 | XMS_ITS | Encounter Summary ---
Author Organization [facility] Address [address] [place] [address] Care Team Providers Care Manager Income Tax Name Role Phone Tremaine Shankar MD Primary Care Provider + Dallas Canas MD PhD Unavailable Unavailabl e Reason for Visit * Reason Comments Follow-up Encounter Details Date Type Department Care Team (Late st Contact Info) Description 05/25/2021 13:30 EDT Telemedicine [facility] Sleep Program - [address] [place] [address] [place], [place] [id number] Rita Mayfield NP 1 [facility] [address] [place] [phone] Obstructive sleep apnea (Primary Dx) Social History [...] this encounter Progress Notes * Rita Becker NP - 05/25/2021 1330 EDT [facility] SLEEP PROGRAM Date of Service: 05/25/2021 Name: Venkata Zhao : 1985 TELEMEDICINE VIDEO VISIT Today's visit was provided through telemedicine video conferencing: The location of the patient : Home The location of the provider: Home Office The following staff and their role did participate in today's encounter: Rita Becker NP The concept of ???Telemedicine?? has been described [...] Sleep Apnea HPI: Venkata Zhao is a 36 y.o. male w/hx/o bipolar disorder, anxiety, obesity, and allergic rhinitis, who presents to the [facility] on 05/25/2021 for follow-up of NIA on CPAP therapy. Pt is unaccompanied today. Pt was diagnosed with NIA via HSAT in 2015 with an ERICK of 31. He underwent home PAP titration and has been using CPAP therapy since that time. He was last seen in clinic 12/21/20, at which time he wasdoing well with CPAP and was due for a new machine, which was ordered at that time. Pt returns today for follow-up. He continues to do well with CPAP, using it every night, for the entire night. He never obtained a replacement machine, because he was moving to a new house and did not have time to do so. He is using nasal pillows, which he finds comfortable, but his has been hearing them leaking. He has not replaced the mask cushion in quite a while. The pressure does not feel excessive or insufficient. Heuses the humidifier and denies issues with oral dryness or nasal congestion. With CPAP use, he has improved quality of sleep and feels more rested during the day. Prior to CPAP, he snored, had pausesin his breathing during sleep, and would awaken gasping. All of these breathing symptoms resolved with CPAP use. He goes to bed at 10 PM and falls asleep quickly. He awakens 0-2 times during the night, but is able to go right back to sleep. He arises for the day at 8 AM and feels refreshed upon awakening. Daytime sleepiness is not generally problematic, but sometimes he will feel tired if he is particularly physically active. He takes a nap 1-2 times/week for about 2 hours. He denies difficulty maintaining wakefulness while driving. He takes melatonin at bedtime, and he also takes haloperidol, which makes him sleepy. He does not take stimulant medications. He drinks a Diet Coke 3-4 times per week, but does not have any other regular caffeine. He drinks alcohol once per month, and will have as many as 4-5 drinks. He does not use tobacco. He smokes marijuana every day recreationally. He does not use other substances. He is unsure of his current weight, and he remains active around his house, but otherwise does not get regular exercise. Patient Active Problem List Diagnosis ??? Allergic rhinitis ??? Scalp cyst ??? NIA (obstructive sleep apnea) ??? Adult BMI 40.0-44.9 kg/sq m ([facility]) ??? Primary insomnia ??? Anxiety ??? Acute left ankle pain ??? Encounter for long-term (current) use of other medications ??? Bipolar I disorder, current or most recent episode manic, with psychotic features ([facility]) No past medical history on file. Current Outpatient Medications Medication ??? benztropine (COGENTIN) 0.5 mg tablet ??? haloperidoL (HALDOL) 5 mg tablet ??? lithium 600 mg capsule ??? melatonin 3 mg tablet ??? VITAMIN D3 25 mcg (1,000 unit) capsule No current facility-administered medications for this visit. Objective: There were no vitals taken for this visit. Wt Readings from Last 5 Encounters: 12/21/20 [...] Type: nasal pillows Most Recent Usage Statistics (04/13/21-05/12/21): Days Used: ; 100% Median usage (days used): 10 hours 54 minutes Maximum Pressure: 11.4cmH2O 95th Percentile Pressure: 10.1cmH2O Median Pressure: 8.0cmH2O Leak: not excessive AHI: 0.4 PSG Data: Study Type: ??Home Sleep Apnea Test 10/15/15 Impression: * Severe Obstructive Sleep Apnea (NIA). ??ERICK??31.0??(AASM 2012). ERICK??20.3??(AASM 2007). Avg 02??Sat: 95??%;??Roberto Carlos 02??Sat: 90 %;??Time with 02 Sat <??88%: 1 minutes. ?? Home PAP Titration 11/02/15 Assessment: 36 y.o. male who presented to the [facility] on 05/25/2021 for follow-up of NIA on CPAP therapy. Patient is doing well with CPAP, with symptomatic improvement (improved quality of sleep, resolution of snoring, more rested during the day), excellent compliance, and good control of NIA (residual AHI 0.4). He is due for a new machine, and a replacement machine order was placed at his last visit. He never obtained the machine, because he was moving to a new house and did not have the time to do so. Encouraged him to contact his [employer] company and obtain the replacement machine, and he will call if he has any trouble doing this. He is also due for a replacement nasal pillows cushion, so he will get this from his [employer] company as well, and will call if his continues to hear the mask leaking.Otherwise, he is pleased with CPAP, and no changes are required today. Recommend maintaining consistent sleep and wake times and allowing at least 7-8 hours for total sleep per night, all with CPAP use. Also recommend decreasing the amount of alcohol he consumes at one time, and not consuming alcohol in proximity to sleep. He will continue to follow-up with his other providers for medication management. Encouraged him to continue with regular exercise as tolerated, and recommend weight loss. Recommendations: ?? Continue auto CPAP 5-15cm H2O with all sleep; replacement machine previously ordered, pt will work to obtain from [employer] ?? Patient counselin. Avoidance of drowsy driving [...] otherwise I???ll plan a follow-up visit in 30-90 days for compliance. I spent a total of 25 minutes on the date of this encounter meeting with the patient and reviewing documentation/coordinating care as described in the above note. No procedures were performed at the time of the visit. Rita Becker NP 05/25/2021 documented in this encounter Plan of Treatment [...] learn more about your health please visit: [email or web address]/medcenter/Pages/Wellness-Resources/Prezygjqy-Rrqqwu-Hd sourc e-Center.aspx documented as of this encounter Visit Diagnoses Diagnosis Obstructive sleep apnea- Primary Obstructive sleep apnea (adult) (pediatric) documented in this encounter Care Teams Manager Income Tax Relationship Specialty Start Date End Date Tremaine Shankar MD [address] [place] [phone] PCP - General 06/25/18 03/29/22 Dallas Canas MD PhD [address] [phone] PCP - Alternate 03/17/21 03/29/22 documented as of this encounter
--- OUTSIDE RECORDS SUMMARY | 2024-06-16 15:23 | XMS_ITS | Encounter Summary ---
Author Organization [facility] Address [address] [place] [address] Care Team Providers Care Life Underwriter Name Role Phone Rita Kahn DO Unavailable [phone] Tremaine Shankar MD Primary Care Provider + Dallas Canas MD PhD Unavailable Unavailabl e Encounter Details Date Type Department Care Team (Late st Contact Info) Description 11/19/2020 Telephone [facility] Sleep Program - [address] [place] [address] [place], [place] [phone] Rita Mayfield TONGUER 1 [facility] [address] [place] [phone] Social History Tobacco Use Types Packs/Day Years [...] Telephone Encounter - Brooklyn Toth MA - 11/22/2020 1232 EST Pt called to let us know he missed his apt Sunday and would like to reschedule. He has been rescheduled for 12/21/20 at 1:30pm remote acces NPV -ZOOM Meeting ID: [id number] Password: [id number] * Telephone Encounter - Angelica Lance - 11/19/2020 0832 EST Pt missed appt this am, could not leave message as v/m was full. Sent email: Phil Hastings, Please call our office ([phone]) to reschedule today???s missed appointment. We attempted to leave you a message, but your voice mail was full. Thank you! documented in this encounter Plan of Treatment [...] learn more about your health please visit: [email or web address]/Pages/Wellness-Resources/Rjxaavnoj-Ivqrwe-Xm [facility] e-Center.aspx documented as of this encounter Visit Diagnoses Not on filedocumented in this encounter Care Teams Life Underwriter Relationship Specialty Start Date End Date Rita Kahn DO [address] [place] [phone] PCP - Alternate 02/13/18 03/16/21 Tremaine Shankar MD [address] [phone] PCP - General 06/25/18 03/29/22 Dallas Canas MD PhD [address] [phone] PCP - Alternate 03/17/21 03/29/22 documented as of this encounter
--- OUTSIDE RECORDS SUMMARY | 2024-06-16 15:23 | XMS_ITS | Encounter Summary ---
Author Organization [facility] [place] [address] Care Team Providers Care Dosier Operator Name Role Phone Jeanne Trevizo APRN Primary Care Provider [phone] Reason for Visit * Reason Comments Medication Refill Encounter Details Date Type Department Care Team (Late st Contact Info) Description 08/18/[address] [facility] [address] [place] [phone] Magali Son MD [facility] [address] [address] Folliculitis Social History Tobacco Use Types Packs/Day Years [...] encounter Miscellaneous Notes * Telephone Encounter - Julianna Hightower CCMA - 08/25/2022 8:20 AM EST Medication requested to refill: Clindamycin 1% Lotion Last visit: 04/21/2022 Follow up recommended: 3 months F/U Scheduled: No; patient canceled 07/06/2022 f/u. Assessment/Plan for this/these medications: Folliculitis vs. Mild HS; apply topically 1-2 times daily to affected area. Appropriate to refill: Please advise if bridge script is appropriate to give patient time to schedule f/u. Special Considerations: No Order/orders pended and routed to Magali Son MD for review and approval. documented in this encounter Plan of Treatment Not on file documented as of this encounter Visit Diagnoses Diagnosis Folliculitis Other specified disease of hair and hair follicles documented in this encounter Care Teams Dosier Operator Relationship Specialty Start Date End Date Jeanne Trevizo, BUSINESS SYSTEMS DEVELOPER [place] [address] [place] [address] PCP - General Family Medicine 01/20/22 documented as of this encounter
--- OUTSIDE RECORDS SUMMARY | 2024-06-16 15:23 | XMS_ITS | Encounter Summary ---
Author Organization [facility] [place] [address] Care Team Providers Care Vacuum Spindle Sander Name Role Phone Santhosh, Jeanne Flood APRN Primary Care Provider [phone] Encounter Details Date Type Department Care Team (Late st Contact Info) Description 10/12/2022 2:20 PM EST Office Visit Dermatology at [facility] [address] [place] [phone] Magali Son MD [facility] [address] [address] Hidradenitis suppurativa Social History Tobacco Use Types [...] as of this encounter Progress Notes * Melanie Sousa MD - 10/12/2022 2:20 PM EST I directly supervised the resident during this office visit. The resident physician presented the history and physical exam to me. I then saw and examined this patient with the resident. We reviewed the history and pertinent details and I confirmed the physical exam findings. I agree with the details of the history and physical exam as documented in the resident physician's note. Melanie Sousa MD Staff Physician [facility] Dermatology * Huy Magali Nai - 10/12/2022 1:00 PM EST Images from the original note were not included. DEPARTMENT OF DERMATOLOGY Medical Dermatology Clinic Provider: Magali Son MD Patient's preferred name Venkata Preferred contact [...] of Present Illness: Venkata Zhao is a 37 y.o. Patient returns to clinic today for a follow up of folliculitis / early HS, he states that he will occasionally use Rx Clindamycin lotion andrarely BPO wash. He states that since his last visit he had two larger cystic lesions that drained over the months, has since resolved. Last visit at Dermatology: 04/21/2022 Last visit with this provider: 04/21/2022 Medications: Reviewed in eD-H Allergies: Reviewed in eD-H Skin Examination: Focused skin examination of the groin and left and right lower extremities was normal with the exception of the findings below. Assessment/Plan # Hidradenitis Suppurativa, Coppola Stage 1 - upper inner thighs erythematous papules and pustules with PIH. Axilla clear. - Discussed treatment options (topical, oral antibiotics, ILK) - Continue Rx: Clindamycin Lotion - apply topically 1-2x a day to affected area - Start OTC benzoyl peroxide wash such as Panoxyl - start Rx: Doxycycline 100mg BID x 3 months, decrease after that - If develops new painful cysts, instructed to call for ILK - Briefly discussed Rx Humira- consider in the future Other: ??? N/A RTC: 3-6 months for HS f/u [x]Note routed to marketing secretary []Recall placed in scheduling system []Appointment scheduled at checkout Scribe attestation: Yolanda Stauffer [facility] has performed the documentation for this encounter in thepresence of and acting as a scribe for Magali Son MD. I performed the above scribed service and agree with the accuracy of the documentation in this encounter. Reviewed and signed by: Magali Son MD Dermatology [facility] Patient seen and evaluated with staff tape cutting machine operator: Melanie Sousa MD Dermatology [facility] documented in this encounter Plan of Treatment Not on file documented as of this encounter Visit Diagnoses Diagnosis Hidradenitis suppurativa Hidradenitis documented in this encounter Care Teams Vacuum Spindle Sander Relationship Specialty Start Date End Date Jeanne [place] [address] PCP - General Family Medicine 01/20/22 documented as of this encounter
--- OUTSIDE RECORDS SUMMARY | 2024-06-16 15:23 | XMS_ITS | Encounter Summary ---
Author Organization [facility] Address [address] [place] [address] Care Team Providers Care Flaking Roll Operator Name Role Phone KahnRita soriano DO Unavailable [phone] Tremaine Shankar MD Primary Care Provider + Dallas Canas MD PhD Unavailable Unavailabl e Encounter Details Date Type Department Care Team (Late st Contact Info) Description 12/15/2020 Lab Requisition [facility] Pathology & Laboratory Medicine - [facility] [address] [place] [address] Joseph Lynn, PMHNP Other long-term (current) drug therapy Social History Tobacco Use Types Packs/Day Years [...] No 04/22/2018 documented as of this encounter Plan of [...] learn more about your health please visit: [email or web address]/Pages/Wellness-Resources/Zdjskthgo-Wyfliu-Wv sourc e-Center.aspx documented as of this encounter Procedures Procedure Name Priority Date/Time Associated Diagnosis Comments LITHIUM Routine 12/15/2020 8:30 EDT Other guest services manager (current) drug therapy documented in this encounter Results * LITHIUM (12/15/2020 8:30 EDT) Idalia 0.5 See Note mEq/L 12/15/2020 20:48 EDT [facility] Comment: 18 years and older: Therapeutic range: 0.6 - 1.2 mEq/L Potentially toxic: >1.5 mEq/L Therapeutic range not established for individuals <18 years old. Blood VENOUS BLOOD / Unknown 12/15/2020 8:30 EDT 12/15/2020 20:24 EDT Joseph Lynn PMHNP CHEMISTRY & BLOOD GAS ORDERABLES [facility] [address] [place] [address] documented in this encounter Visit Diagnoses Diagnosis Other long-term (current) drug therapy documented in this encounter Care Teams Flaking Roll Operator Relationship Specialty Start Date End Date Rita Kahn DO [address] [place] [phone] PCP - Alternate 02/13/18 03/16/21 Tremaine Shankar MD [address] [phone] PCP - General 06/25/18 03/29/22 Dallas Canas MD PhD [address] [phone] PCP - Alternate 03/17/21 03/29/22 documented as of this encounter
--- OUTSIDE RECORDS SUMMARY | 2024-06-16 15:23 | XMS_ITS | Encounter Summary ---
Author Organization [facility] Address [facility] [place] [address] Care Team Providers Care Music Box Mechanic Name Role Phone Jeanne Trevizo APRN Primary Care Provider [phone] Reason for Referral * Consultation (Routine) - Closed Specialty Diagnoses / Procedures Referred By Contac t Referred To Contact Dermatology Diagnoses EIC (epidermal inclusion cyst) Josse Cantor MD [facility] [place] [id number] Grace Lobo RN Referral ID Status Reason Start Date Expiration Date V isits Requested Visits Authorized [id number] Closed Consult, Test & Treat 03/28/2023 03/27/2024 1 1 Encounter Details Date Type Department Care Team (Late st Contact Info) Description 03/28/2023 3:00 PM EDT Office Visit Dermatology at [facility] [address] [place] [address] Josse Cantor MD [facility] [address] Hidradenitis suppurativa; EIC (epidermal inclusion cyst); High risk medication use Social History Tobacco [...] Progress Notes * Josse Cantor MD - 03/28/2023 3:00 PM EDT Images from the original note [...] y.o. Patient returns to clinic today for an HSfollow up. Patient reports not much improvement. Patient reports he is currently taking Rx Doxycyline 100mg twice daily. He reports not using Rx Clindamycin lotion. Patient reports his worst area is located on his inner thighs. Last visit at Dermatology: 10/12/2022 Last visit with this provider: Medications: Reviewed in eD-H Allergies: Reviewed in eD-H Skin Examination: Focused skin examination of the inner thighs, and central back was normal with the exception of thefindings below. Assessment/Plan # Hidradenitis Suppurativa, Coppola Stage 2 - On the medial upper thighs are numerous, large pustules. Significant PIH and scarring. Several early sinus tracts on the right medial upper thigh. Right worse then left. - Discussed treatment options (topical, oral antibiotics, ILK) - Continue Rx: Clindamycin Lotion - apply topically 1-2x a day to affected area - Continue OTC benzoyl peroxide wash such as Panoxyl - s/p: Doxycycline 100mg BID x 6 months - Given significant progression of disease despite systemic antibiotics and topical therapies. Patient reports of detriment to well being with bleeding through shorts and limitations in activities, recommend pursuing additional systemic treatment. Disease has progressed too far to use ILK alone as a supplemental treatment option - -Pt has agreed to start Humira. -risk and benefits of the medication were discussed. Pt denies hx of exposure to TB, hx. of Hepatitis B or C infection, liver cirrhosis or lymphoma -Will obtain baseline CBC, CMP, Hepatitis C Ab, Hepatitis B Ag and Quantiferion gold. #. Lipoma vs EIC - roughly 2cm poorly defined subcutaneous nodule on the upper back left of mid line. - Discussed benign nature of lesion and provided reassurance. - Discussed that definitive treatment would require surgical excision. Referral sent today. Other: N/A RTC: 3 months for Hs follow up []Note routed to secretary administrative assistant []Recall placed in scheduling system [x]Appointment scheduled at checkout Scribe attestation: Almaz Pizarro [facility] has performed the documentation for this encounter in the presence of and acting as a scribe for Josse Cantor MD. I performed the above scribed service and agree with the accuracy of the documentation in this encounter. Reviewed and signed by: Josse Cantor MD Dermatology [facility] Patient seen and evaluated with staff manager compliance: Steph Chavez MD Dermatology [facility] * Steph Chavez MD - 03/28/2023 3:00 PM EDT I directly supervised Dr. Cantor during this office visit. Dr. Cantor presented the history and physical exam to me. I then saw and examined this patient with Dr. Cantor . We reviewed the history and pertinent details and I confirmed the physical findings. I agree with the details of the history and physical exam as documented in Dr. Cantor's note. STEPH CHAVEZ MD Staff Physician documented in this encounter Plan of Treatment Scheduled Referrals Name Type Priority Associated Diagnoses Order Schedule Referral to Dermatology Outpatient Referral Routine EIC (epidermal inclusion cyst) Ordered: 03/28/2023 documented as of this encounter Procedures Procedure Name Priority Date/Time Associated Diagnosis Comments QUANTIFERON-TB GOLD Routine 03/28/2023 3 :59 PM EDT Hidradenitis suppurativa High risk medication use HEMOGRAM Routine 03/28/2023 3:59 PM EDT Hidradenitis suppurativa High risk medication use DIFFERENTIAL, AUTOMATED Routine 03/28/2023 3:59 PM EDT Hidradenitis suppurativa High risk medication use HEPATITIS C ANTIBODY Routine 03/28/2023 3:59 PM EDT Hidradenitis suppurativa High risk medication use HEPATITIS B SURFACE ANTIGEN Routine 03/28/2023 3:59 PM EDT Hidradenitis suppurativa High risk medication use CBC (WITH DIFF) Routine 03/28/2023 3:59 PM EDT Hidradenitis suppurativa High risk medication use COMPREHENSIVE METABOLIC PANEL Routine 03/28/2023 3:59 PM EDT Hidradenitis suppurativa High risk medication use documented in this encounter Results * (ABNORMAL) Differential, Automated (03/28/2023 3:59 PM EDT) Neutrophil % 73.1 % [facility] Neutrophil Absolute 6.23(H) 1.70 - 6.10 x10(3)/mc L [facility] Lymph % 20.2 % [facility] Lymphocytes Abs 1.7 0.9 - 3.2 x10(3)/mc L [facility] Monocyte % 4.1 % [facility] Monocyte Abs 0.4 0.3 - 0.9 x10(3)/mc L [facility] Eos % 1.6 % [facility] Eosinophils Abs 0.1 0.0 - 0.4 x10(3)/mc L [facility] Basophil % 0.6 % [facility] Baso Absolute 0.0 0.0 - 0.1 x10(3)/[facility] Immature Gran % 0.40 % [facility] Comment: Immature granulocytes(IG's)percentage and absolute count will include metamyelocytes, myelocytes, and promyelocytes. Blood smears from CBCs yielding IG's will be scanned manually for concordance. If this scan disagrees with the automated IG or if promyelocytes are noted, a manual differential will be performed. Immature Gran Absolute 0.03 0.00 - 0.04 x10(3)/[facility] Blood 03/28/2023 3:59 PM EDT 03/28/2023 4:09 PM EDT Narrative Resulting Agency Comment Spec In Lab Josse Cantor MD HEMATOLOGY ORDERABLE S [facility] [place] [address] * Hemogram (03/28/2023 3:59 PM EDT) White Blood Cell 8.5 4.0 - 9.5 x10(3)/[facility] Red Blood Cell 5.40 4.58 - 5.54 x10(6)/[facility] Hemoglobin 15.5 13.7 - 16.5 g/dL [facility] Hematocrit 47.0 40.5 - 48.5 % [facility] Mean Cell Volume 87.0 82.9 - 93.1 fL [facility] Mean Cell Hemoglobin 28.7 27.5 - 32.1 pg [facility] Mean Cell Hemoglobin Concentration 33.0 32.0 - 35.7 g/dL [facility] Platelet 208 145 - 357 x10(3)/[facility] RDW Standard Deviation 39.7 36.0 - 45.0 fL [facility] RDW coefficient of variation 12.6 11.4 - 13.8 % [facility] Mean Platelet Volume 10.8 7.6 - 12.9 fL [facility] NRBC% auto 0.0 % [facility] NRBC Absolute 0.000 0.000 - 0.000 x10(3)/[facility] Blood 03/28/2023 3:59 PM EDT 03/28/2023 4:09 PM EDT Narrative Resulting Agency Comment Spec In Lab Josse Cantor MD HEMATOLOGY ORDERABLE S Performing Organization Address City/[facility] Co de Phone Number [facility] [place] [address] * Hepatitis B Surface Antigen (03/28/2023 3:59 PM EDT) Hepatitis B Surface Antigen Negative Negative [facility] Blood 03/28/2023 3:59 PM EDT 03/28/2023 4:09 PM EDT Narrative Resulting Agency Comment Spec In Lab Steph Chavez MD CHEMISTRY ORDERABLES Performing Organization Address [facility] Co de Phone Number [facility] [place] [address] * Hepatitis C Antibody (03/28/2023 3:59 PM EDT) Hepatitis C Antibody Negative Negative [facility] Blood 03/28/2023 3:59 PM EDT 03/28/2023 4:09 PM EDT Narrative Resulting Agency Comment Spec In Lab Steph Chavez MD CHEMISTRY ORDERABLES Performing Organization Address [facility] Co de Phone Number [facility] [place] [address] * QuantiFERON-TB Gold (03/28/2023 3:59 PM EDT) Quantiferon Nil 0.037 IU/mL [facility] QFT TB Ag1-Nil 0.018 IU/mL [facility] QFT TB Ag2-Nil 0.015 IU/mL [facility] Quantiferon Mitogen-Nil 9.963 IU/mL [facility] Quantiferon-TB Gold Negative Negative [facility] Quantiferon Tb Interp M. tuberculosis infection NOT likely A negative specimen should have a TB1 Ag minus Nil value and TB2 Ag minus Nil value of less than 0.35 IU/mL OR a TB1 Ag minus Nil or TB2 Ag minus Nil value greater than or equal to 0.35 IU/mL AND a TB Ag minus Nil value from the same tube of less than 25% of the Nil value. A negative specimen must also have a mitogen minus Nil value greater than or equal to 0.5 IU/mL. A negative QFT-Plus result does not preclude the possibility of M. tuberculosis infection. False negative results can occur due to stage of infection (specimen obtained prior to the development of immune response), co-morbid conditions which affect immune function, or other immunological factors. [facility] Blood 03/28/2023 3:59 PM EDT 03/29/2023 10:47 AM EDT Narrative Resulting Agency Comment Spec In Lab Steph Chavez MD CHEMISTRY ORDERABLES [facility] [place] [address] * Comprehensive metabolic panel (non-fasting) (03/28/2023 3:59 PM EDT) Pathologist [facility] Glucose 151 65 - 199 mg/dL [facility] Comment:Diabetes: >=200 mg/d L plus symptoms Blood Urea Nitrogen 17 10 - 20 mg/dL [facility] Creatinine 0.93 0.80 - 1.50 mg/dL [facility] Sodium 141 135 - 145 mmol/L [facility] Potassium 4.1 3.5 - 5.0 mmol/L [facility] Comment: Please note: ??Patients with WBC >100,000 may have falsely elevated Potassium levels. ??For accurate Potassium quantification in these patients send serum separator tube (gold top) for subsequent determinations. ??Contact the Clinical Chemistry Laboratory if there are any questions. Chloride 107 98 - 107 mmol/L [facility] Carbon Dioxide 22 22 - 31 mmol/L [facility] Anion Gap 12 5 - 15 mmol/L [facility] Calcium 9.6 8.5 - 10.5 mg/dL [facility] Protein, Total 6.7 6.1 - 8.0 g/dL [facility] Albumin 4.7 3.2 - 5.2 g/dL [facility] Aspartate Aminotransferase 14 0 - 39 unit/L [facility] Alanine Aminotransferase 19 0 - 55 unit/L [facility] Alkaline Phosphatase 84 40 - 130 unit/L [facility] Bilirubin, Total 0.9 0.2 - 1.3 mg/dL [facility] Est Glomerular Filtration Rate 110 >=60 mL/min/1. 73 m?? [facility] Comment: This patient's estimated GFR was calculated using the 2020 CKD-EPI equation. The estimated GFR can vary from the measured GFR by up to 30% in the absence of rapidly changing kidney function. Assessment of the estimated GFR is not appropriate when creatinine concentrations are rapidly changing. For clinical situations in which a more precise estimate of GFR is necessary, consider alternative methods of GFR estimation such as a 24-hour urine creatinine clearance. Assignment of CKD stage 1-5 for patients with an eGFR near the transition point between stages may be based on clinical assessment of muscle mass and symptoms in addition to eGFR. Blood 03/28/2023 3:59 PM EDT 03/28/2023 4:09 PM EDT Narrative Resulting Agency Comment Spec In Lab Steph Chavez MD CHEMISTRY ORDERABLES [facility] [place] [phone] documented in this encounter Visit Diagnoses Diagnosis Hidradenitis suppurativa Hidradenitis EIC (epidermal inclusion cyst) Sebaceous cyst High risk medication use Encounter for long-term (current) use of other medications documented in this encounter Care Teams Music Box Mechanic Relationship Specialty Start Date End Date Jeanne Trevizo, [employer] [place] [address] PCP - General Family Medicine 01/20/22 documented as of this encounter
--- OUTSIDE RECORDS SUMMARY | 2024-06-16 15:23 | XMS_ITS | Encounter Summary ---
Author Organization [facility] Address [address] [place] [address] Care Team Providers Care Agile Scrum Coach Name Role Phone Criss Rita Eder DO Unavailable [phone] Tremaine Shankar MD Primary Care Provider + Reason for Visit * Reason Onset Date Comments COVID-19 10/06/2020 Encounter Details Date Type Department Care Team (Late st Contact Info) Description 10/06/2020 Telephone [facility] Adult Primary Care [facility] [address] [place], [place] [phone] Tremaine Shankar MD 1 [facility] [address] [place] [address] COVID-19 Social History Tobacco Use Types Packs/Day Years [...] encounter Miscellaneous Notes * Telephone Encounter - Huma Saucedo - 10/06/2020 1107 EST Patient is calling because he is working for the [employer] and he would like to have two COVID testdone prior to October 30 and November 20 as this is when he is going to be working for the [employer]. documented in this encounter Plan of Treatment [...] learn more about your health please visit: [email or web address]/medcenter/Pages/Wellness-Resources/Bknieoxek-Jvxfwr-Qy [facility] e-Center.aspx documented as of this encounter Visit Diagnoses Not on filedocumented in this encounter Care Teams Agile Scrum Coach Relationship Specialty Start Date End Date Rita Kahn DO [address] [place] [phone] PCP - Alternate 02/13/18 03/16/21 Tremaine Shankar MD 1 [facility] [address] [place] [address] PCP - General 06/25/18 03/29/22 documented as of this encounter
--- OUTSIDE RECORDS SUMMARY | 2024-06-16 15:23 | XMS_ITS | Encounter Summary ---
Author Organization [facility] Address [address] [place] [address] Care Team Providers Care Paymaster Of Purses Name Role Phone Rita Kahn DO Unavailable [phone] Tremaine Shankar MD Primary Care Provider + Reason for Visit * Reason Comments Nutrition Counseling Encounter Details Date Type Department Care Team (Late st Contact Info) Description 10/08/2020 10:00 EST Nutrition [address] [id number] Rita Martinez, RD 118 [facility] [address] [place] [phone] Class 3 severe obesity with body mass index (BMI) of 50.0 to 59.9 in adult, unspecified obesity type, unspecified whether serious comorbidity present ([facility]) (Primary Dx) Social History Tobacco Use Types [...] Progress Notes * Rita Carnes RD - 10/08/2020 1000 EST [facility] Adult Primary Care & Family Medicine Registered Dietitian Follow up Encounter Date of visit: 10/08/2020 Venkata arrives at today's nutrition visit for [...] Carnes RD Goals from previous nutrition visit: 09/20/20 PATIENT IDENTIFIED GOALS: no specific goal established today ?? PLAN: ?? 3 balanced, consistent meals per day w/ whole grains, lean protein, 5 servings non-starchy vegetables and 4 servings fruit ?? <10% total energy from saturated fat and increased focus on mono and polyunsaturated fats ?? <6 teaspoons (<24g) added sugar daily ?? <1500 mg sodium daily ?? Food shopping on Sunday ?? Sunday morning - coffee or tea, latkes, extended walk, making egg bites, extended workout ([employer]) ?? Follow plan for alcohol consumption - 1 Sunday, 1 Sunday, 2 Sunday TODAY'S VISIT WAS CUT SHORT DUE TO DROPPED INTERNET ON THE PROVIDER'S END. RESCHEDULED FOR 2 WEEKS FROM TODAY. SUBJECTIVE: Venkata shares experience during inpatient stay. While in the hospital was trying to grow vegetables with leftovers from meals - shares that this was unusual. Medication changes during hospitalization. ?? Benzotropine ?? Haldol ?? Melatonin ?? Vitamin D3 Nutrition: Good appetite while inpatient. At discharge went out for pizza and wings. Has been eating ramen noodles this week, which is the first time in a long time. Has been making quick meals - gives the example of ready to heat meals from [employer], eggs, air-fried alvin (for ) Has been making smoothies - one with cake (carrot, orange, lettuce, chocolate protein powder, cake)otherwise has been making fruit smoothies with the chocolate protein powder. Eating meals; eating consistently. States late late night meals have stopped. States in-patient snacks helped him understand how to snack more healthily at home. Physical Activity: Reports exercising quite a bit more during hospital stay - recumbent bicycle, rowing machine. Does not have this equipment at home. Does not have a gym membership. OBJECTIVE: Nutrition Focused Physical Exam: Not completed, [...] Component Value Date TSH 0.89 09/21/2020 Medications: Current Outpatient Medications Medication ??? benztropine (COGENTIN) 0.5 mg tablet ??? cholecalciferol, Vitamin D3, 1,000 unit tablet ??? haloperidoL (HALDOL) 5 mg tablet ??? melatonin 3 mg tablet No current facility-administered medications for this visit. Drug-Nutrient Interactions - Not discussed at today's visit NUTRITION ASSESSMENT: Venkata Zhao arrives at today's visit for continuation of medical nutrition therapy for Morbid obesity Nutrition Diagnosis: Morbid Obesity ICD-10-CM ICD-9-CM 1. Class 3 severe obesity with body mass index (BMI) of 50.0 to 59.9 in adult, unspecified obesity type, unspecified whether serious comorbidity present ([facility]) E66.01 278.01 Z68.43 V85.43 Etiology: History of imbalanced nutrition, inconsistent meal timing, physical inactivity and Predicted excessive energy intake Signs & Symptoms: Elevated BMI (see above), per report current weight 397 lbs. Intervention: MNT/Education: Engaged patient in conversation related to positive behavior change, self-management, goal setting and action planning using motivational interviewing and active listening. ?? Reviewed medical history, labs, and medications/supplements. ?? Reviewed dietary intake and physical activity. ?? Discussed health goals, including motivators and barriers. Discussed motivation for making healthy changes; explored beliefs about making change and ambivalence. RD utilized AL techniques including reflective listening, normalization, and eliciting change talk MNT/Educational Materials Provided: Smoothie Recipes Learning Readiness and Receptivity to Nutrition Education: Receptive to education and demonstrated fair understanding; will likely require additional exposure and reinforcement STAGE OF CHANGE: Action PATIENT IDENTIFIED GOALS: weight loss, goal weight 350 lbs. No additional, specific goal established today. PLAN: ?? 3 balanced, consistent meals per day w/ whole grains, lean protein, 5 servings non-starchy vegetables and 4 servings fruit ?? <10% total energy from saturated fat and increased focus on mono and polyunsaturated fats ?? <6 teaspoons (<24g) added sugar daily ?? <1500 mg sodium daily ?? 30-60 minutes aerobic and strength training exercise 3-5 days per week. Monitoring & Evaluation: RD to monitor dietary intake and physical activity, understanding of nutrition education and recommendations, nutrition related labs and vitals Total time spent with patient on nutrition counselin minutes Card Painter used: no Thank you for your referral, Rita Carnes, MS, RD, CD Clinical Dietitian [facility] Adult Primary Care & Family Medicine [...] learn more about your health please visit: https://www.[facility].org/medcenter/Pages/Wellness-Resources/Ugoewslei-Burtzd-Ub sourc e-Center.aspx documented as of this encounter Visit Diagnoses Diagnosis Class 3 severe obesity with body mass index (BMI) of 50.0 to 59.9 in adult, unspecified obesity type, unspecified whether serious comorbidity present ([facility] Primary documented in this encounter Care Teams Paymaster Of Purses Relationship Specialty Start Date End Date Rita Kahn DO [address] [place] [address] PCP - Alternate 02/13/18 03/16/21 Tremaine Shankar MD 1 [facility] [address] [place] [address] PCP - General 06/25/18 03/29/22 documented as of this encounter
--- OUTSIDE RECORDS SUMMARY | 2024-06-16 15:23 | XMS_ITS | Encounter Summary ---
Author Organization [facility] Address [address] [place] [address] Care Team Providers Care Police Patrol Lieutenant Name Role Phone Tremaine Shankar MD Primary Care Provider + Dallas Canas MD PhD Unavailable Unavailabl e Reason for Visit * Reason Onset Date Comments Appointment Related 06/09/2021 Encounter Details Date Type Department Care Team (Late st Contact Info) Description 06/09/2021 Telephone [facility] [address] [place], [place] [id number] Rita Mayfield NP 1 [facility], [address] [place] [address] Appointment Related Social History Tobacco [...] Miscellaneous Notes * Telephone Encounter - Susy Parsons - 06/09/2021 1435 EDT Called pt to schedule FUR/COMPLIANCE Zoom. LVMM to call back to schedule/MyChart/Recall documented in this encounter Plan of Treatment [...] learn more about your health please visit: https://www.[facility].org/medcenter/Pages/Wellness-Resources/Djoizccdr-Hsifwo-Sc sourc e-Center.aspx documented as of this encounter Visit Diagnoses Not on filedocumented in this encounter Care Teams Police Patrol Lieutenant Relationship Specialty Start Date End Date Tremaine Shankar MD [address] [phone] PCP - General 06/25/18 03/29/22 Dallas Canas MD PhD [address] [place] [phone] PCP - Alternate 03/17/21 03/29/22 documented as of this encounter
--- OUTSIDE RECORDS SUMMARY | 2024-06-16 15:23 | XMS_ITS | Encounter Summary ---
Author Organization [facility] Address [address] [place] [address] Care Team Providers Care Supervisor Ore Dressing Name Role Phone Tremaine Shankar MD Primary Care Provider + Dallas Canas MD PhD Unavailable Unavailabl e Reason for Visit * Reason Onset Date Comments Medication Problem 10/24/2021 Encounter Details Date Type Department Care Team (Late st Contact Info) Description 10/24/2021 Orders Only [facility] Adult Primary Care - [address] [address] Caitlyn Wasserman, RN [address] [place] [address] Social History Tobacco Use Types Packs/Day Years [...] as of this encounter Progress Notes * Caitlyn Wasserman RN - 10/24/20211958 EST Requested Prescriptions Pending Prescriptions Disp Refills ??? haloperidoL (HALDOL) 5 mg tablet Sig error occurred during Medication transmission between [employer] and [employer]. Administrative entry for reconcilliation. CAITLYN WASSERMAN RN documented in this encounter Plan of Treatment [...] learn more about your health please visit: https://www.[facility].org/medcenter/Pages/Wellness-Resources/Lpfmxfrpd-Vnwylh-Sm sourc e-Center.aspx documented as of this encounter Visit Diagnoses Not on filedocumented in this encounter Care Teams Supervisor Ore Dressing Relationship Specialty Start Date End Date Tremaine Shankar MD [address] [phone] PCP - General 06/25/18 03/29/22 Dallas Canas MD PhD [address] [phone] PCP - Alternate 03/17/21 03/29/22 documented as of this encounter
--- OUTSIDE RECORDS SUMMARY | 2024-06-16 15:23 | XMS_ITS | Encounter Summary ---
Author Organization [facility] Address [address] [place] [address] Care Team Providers Care Purchasing/Receiving Name Role Phone Rita Kahn DO Unavailable [phone] Tremaine Shankar MD Primary Care Provider + Reason for Visit * Reason Onset Date Comments Appointment Related 10/06/2020 Encounter Details Date Type Department Care Team (Late st Contact Info) Description 10/06/[address], [address] [place] [address] C[facility], Admin Appointment Related Social History Tobacco Use Types [...] encounter Miscellaneous Notes * Telephone Encounter - Zhanna Sawyer - 10/06/2020 1046 EST Pt called [facility] to self refer for SW consult on 10/08 @ 9:00 am documented in this encounter Plan of Treatment [...] learn more about your health please visit: https://www.[facility].org/medcenter/Pages/Wellness-Resources/Zaqwcqweb-Fgtbrp-Fd [facility] e-Center.aspx documented as of this encounter Visit Diagnoses Not on filedocumented in this encounter Care Teams Purchasing/Receiving Relationship Specialty Start Date End Date Rita Kahn DO [address] [place] [phone] PCP - Alternate 02/13/18 03/16/21 Tremaine Shankar MD 1 [facility] 1 [place] [address] PCP - General 06/25/18 03/29/22 documented as of this encounter
--- OUTSIDE RECORDS SUMMARY | 2024-06-16 15:23 | XMS_ITS | Encounter Summary ---
Author Organization [facility] [place] [address] Care Team Providers Care Acute Care Registered Nurse Name Role Phone Jeanne Trevizo APRN Primary Care Provider [phone] Encounter Details Date Type Department Care Team (Latest Contact Info) Description 10/12/2022 Travel Social History Tobacco Use Types Packs/Day [...] on filedocumented in this encounter Care Teams Acute Care Registered Nurse Relationship Specialty Start Date End Date Jeanne Trevizo [place] [address] [place] [address] PCP - General Family Medicine 01/20/22 documented as of this encounter
--- OUTSIDE RECORDS SUMMARY | 2024-06-16 15:23 | XMS_ITS | Encounter Summary ---
Author Organization [facility] Address [address] [place] [address] Care Team Providers Care It Sales Consultant Name Role Phone Tremaine Shankar MD Primary Care Provider + Dallas Canas MD PhD Unavailable Unavailabl e Encounter Details Date Type Department Care Team (Late st Contact Info) Description 07/22/2021 Lab Requisition [facility] Pathology & Laboratory Medicine - [facility] [address] [place] [address] Evon Coronado, MOTOR VEHICLE EXAMINER [address] [place] [address] Bipolar disorder, current episode mixed, severe, without psychotic features (HCC-[facility]) ([facility]) Social History Tobacco Use Types Packs/Day Years [...] more about your health please visit: https://www.[facility].org/medcenter/Pages/Wellness-Resources/Wfimcqyqb-Golkjl-Gy [facility] e-Center.aspx documented as of this encounter Procedures Procedure Name Priority Date/Time Associated Diagnosis Comments LITHIUM Today 07/22/2021 12:51 EDT Bipolar disorder, current episode mixed, severe, without psychotic features ([facility]) ([facility]) documented in this encounter Results * LITHIUM (07/22/2021 12:51 EDT) [place] 0.5 See Note mEq/L 07/22/2021 19:54 EDT [facility] Comment: 18 years and older: Therapeutic range: 0.6 - 1.2 mEq/L Potentially toxic: >1.5 mEq/L Therapeutic range not established for individuals <18 years old. Blood VENOUS BLOOD / Unknown 07/22/2021 12:51 EDT 07/22/2021 19:30 EDT Evon Coronado MOTOR VEHICLE EXAMINER CHEMISTRY & BL OOD GAS ORDERABLES [facility] [address] [place] [address] documented in this encounter Visit Diagnoses Diagnosis Bipolar disorder, current episode mixed, severe, without psychotic features ([facility]) Bipolar I disorder, most recent episode (or current) mixed, severe, without mention of psychotic behavior documented in this encounter Care Teams It Sales Consultant Relationship Specialty Start Date End Date Tremaine Shankar MD [address] [phone] PCP - General 06/25/18 03/29/22 Dallas Canas MD PhD [address] [phone] PCP - Alternate 03/17/21 03/29/22 documented as of this encounter
--- OUTSIDE RECORDS SUMMARY | 2024-06-16 15:23 | XMS_ITS | Clinical Summary ---
Author Organization [facility] Address [address] [place] [address] Care Team Providers Care Director Field Services Name Role Phone Unavailable Primary Care Provider Unavailabl e Allergies Active Allergy Reactions Criticality Noted Date Comments Latex, Natural Rubber 08/23/2015 Medications Medication Sig Dispensed Refills Start Date End Date Status lithium 600 mg capsule take 1 capsule by mouth 2 times every day 11/25/2020 Active haloperidoL (HALDOL) 5 mg tablet Take 1/2 tab in the morning at at noon and 2 tabs at bedtime. 11/22/2020 Active benztropine (COGENTIN) 0.5 mg tablet take 1 tablet by mouth 2 times every day 10/27/2020 Active VITAMIN D3 25 mcg (1,000 unit) capsule Take 1,000 Units by mouth daily. 10/27/2020 Active melatonin 3 mg tablet Take 6 mg by mouth at bedtime. 10/27/2020 Active Active Problems Problem Noted Date Diagnosed Date Bipolar I disorder, current or most recent episode manic, with psychotic features ([facility]) 09/21/2020 Encounter for long-term (current) use of other m edications 04/09/2019 Acute left ankle pain 04/08/2018 Anxiety 06/20/2016 Primary insomnia 05/10/2016 NIA (obstructive sleep apnea) 10/29/2015 Overview: Diagnosed 10/27/15-to start CPAP Adult BMI 40.0-44.9 kg/sq m ([facility]) 10/29/2015 Scalp cyst 08/25/2015 Allergic rhinitis 12/05/2007 Resolved Problems Problem Noted Date Diagnosed Date Resolved Date Psychosis ([facility]) 09/21/2020 10/04/19 21 Psychotic episode ([facility]) 10/29/2015 10/04/2020 Overview: Briefly hospitalized in 2013 for an episode of paranoid psychosis related to sleep deprivation and life stressors. Eczema 07/14/2015 10/04/2020 Immunizations Name Administration Dates Next Due DTP Vaccine IM 05/03/1992, 9,1987, 987,1987 Hepatitis B 03/02/1999,04/22/1998,03/11/1998 Hib 10/20/1988 Influenza Vaccine =>3yo Split IM 07/15/2015 Influenza Vaccine Quad (AFLU PAULA) PF 0.5 ml IM (3 yrs+) 07/13/2018,01/11/2018,07/31/2016, 013 Influenza Vaccine Quad (FLUZ ONE) MDV w/preserv 0.5 ml IM (6 mos+) 07/15/2015 Influenza Vaccine Quad PF 0. 5 ml IM (6 mos+) 09/29/2019 MMR Vaccine SQ 03/02/1999,06/26/1988 PPD Skin Test Placement 01/05/2016,04/05/1988 PolioVirus Vaccine OPV Oral 05/03/1992,0 10/15/1988,1987, 987 Td 05/05/2003,03/11/1998 Tdap Vaccine =>7YO IM 07/15/2015 Varicella (Chickenpox) vacci ne (VARIVAX) SQ 09/24/1988 Family History Medical History Relation Comments Schizophrenia Father Diabetes Maternal Grandmother Substance Abuse Mother in remission Eczema Sister Mental Illness Sister Psoriasis Sister Relation Status Comments Father Maternal Grandmother Mother Sister Social History Tobacco Use Types Packs/Day Years Used Date Smoking Tobacco: Former Cigarettes 0 8.9 2 005 - 08/28/2013 Smokeless Tobacco: Never Tobacco Cessation:Counseling Given: No Alcohol Use Standard Drinks/Week Comments Yes 0 [...] on file Sexual Orientation Not on file Obstetrics History Last Filed Vital Signs Vital Sign Reading Time Taken Comments Blood Pressure 109/58 10/04/2020 0800 EST Pulse 75 10/04/2020 0800 EST Temperature 35.9 ??C (96.7 ??F) 10/04/2020 0800 EST Respiratory Rate 16 10/04/2020 0800 EST Oxygen Saturation 97% 10/04/2020 0800 EST Inhaled Oxygen Concentration - - Weight 172.4 kg (380 lb) 12/21/2020 1324 EDT per pt Height 180.3 cm (5' 11) 09/23/2020 1240 EST Body Mass Index 53 09/23/2020 1240 EST Plan of Treatment Health Maintenance Due Date Last Done Comments Hepatitis C Screen 1987 Social Determinants Of Health (SDOH) 1987 Advance Directive 2005 Depression Screening 08/07/2019 08/07/2018, 08/07/2018, 10/29/2015 [place] Prescription Monitoring System 09/29/2020 09/29/2019, 08/07/2018, 06/04/2017 Preventive Care Visit 04/09/2021 04/09/2019, 016 COVID-19 Vaccine ( season) 2023 Influenza Immunization (Adult) (#1) 2024 09/29/2019, 07/13/2018, 01/11/2018, Additional history exists Tetanus (Adult) Immunization 07/15/2025 07/15/2015, 05/05/2003, 03/11/1998 Hepatitis B Vaccine Completed 03/02/1999, 04/22/1998, 03/11/1998 Pertussis (Adult) Immunization Completed 07/15/2015 HIV Screening Discontinued HPV Vaccines Aged Out No longer eligi ble based on patient's age to complete this topic Goals Goal Patient Goal Type Associated Problems [...] learn more about your health please visit: https://www.[facility].org/medcenter/Pages/Wellness-Resources/Oeoeoalxr-Kgenlj-Ac sourc e-Center.aspx Advance Directives For more information, please contact: [phone] * Full Code (Latest Code Status on File) Date Activated Date Inactivated Comments 09/21/2020 20:35 10/04/2020 17:57 Question Answer Comments Reason for decision includes: Full code consistent with overall plan of care Who participated in the discussion? Not Discusse d
--- OUTSIDE RECORDS SUMMARY | 2024-06-16 15:23 | XMS_ITS | Encounter Summary ---
Author Organization [facility] [place] [address] Care Team Providers Care Economic Specialist Name Role Phone SanthoshJeanne APRN Primary Care Provider [phone] Encounter Details Date Type Department Care Team (Late st Contact Info) Description 04/21/2022 1:40 PM EDT Office Visit Dermatology at [facility] [address] [place] [address] Magali Son MD [facility] DR [facility] [address] Folliculitis Social History Tobacco Use Types Packs/Day [...] as of this encounter Progress Notes * Magali Son - 04/21/2022 1:40 PM EDT Images from the original note were not included. DEPARTMENT OF DERMATOLOGY Medical Dermatology Clinic Provider: Magali Son MD Patient's preferred name Venkata Preferred contact method for results []myDH []Letter []Phone: Y Detailed phone message OK? Y Are there any other people with whom we may discuss your care? Y PAST MEDICAL HISTORY If no, type N. If yes, type date, location, treatment Melanoma N Dysplastic nevi N SCC N BCC N AKs N UV Exposure & Protection N Other relevant past medical history (i.e. eczema, psoriasis, birthmarks, immunosuppression) Bipolardisorder on lithium NIA FAMILY HISTORY If yes, details Melanoma N NMSC N Other relevant family history N SOCIAL HISTORY Occupation: N/A Hobbies: outdoors Other: PRE-PROCEDURE SCREENING If no, type N. If yes, include details below Allergy to lidocaine, epinephrine, Dermabond, chlorhexidine, or adhesives: N Bleeding disorder or blood thinners: N Implanted devices (Pacemaker, defibrillator, deep brain stimulator, cochlear implant): N History of Present Illness: Venkata Zhao is a 37 y.o. Patient returns to clinic today for f/u on a boil on the right medial thigh, took doxycyline 100mg BID x 3 months and used Hibiclens which helped clear it up. Patient notes he gets cysts periodically, every couple of months. Last visit at Dermatology: 01/20/2022 Last visit with this provider: Visit date not found Medications: Reviewed in eD-H Allergies: Reviewed in eD-H Skin Examination: Focused skin examination of the b/l axillae and groin was normal with the exception of the findingsbelow. Assessment/Plan # Folliculitis w/ cyst formation vs Mild Hidradenitis Suppurativa, Coppola Stage 1 - upper inner thighs erythematous papules and pustules with PIH. Axilla clear. - Discussed treatment options (topical, oral antibiotics, ILK) - Start Rx: Clindamycin Lotion - apply topically 1-2x a day to affected area - Start OTC benzoyl peroxide wash such as Panoxyl -If develops new painful cysts, instructed to call for ILK -Consider repeat course of doxycyline if continue to recur Other: ??? OTC skin products discussed RTC: 3 months for folliculitis f/u []Note routed to secretary book keeper []Recall placed in scheduling system [x]Appointment scheduled at checkout Scribe attestation: CHETAN Lehman has performed the documentation for this encounter in the presence of and acting as a scribe for Magali Son MD. I performed the above scribed service and agree with the accuracy of the documentation in this encounter. Reviewed and signed by: Magali Son MD Dermatology [facility] Patient seen and evaluated with staff tearoom hostess: Junior Roa MD Dermatology [facility] * Carlitos Roa MD - 04/21/2022 1:40 PM EDT I directly supervised Dr. Son during this office visit. Dr. Son presented the history and physical exam to me. I, then, saw and examined this patient with Dr. Son. We reviewed the history and pertinent details and I confirmed the physical findings. I agree with the details of the history and physical exam as documented in Dr. Son's note. CARLITOS ROA MD Staff Physician documented in this encounter Plan of Treatment Not on file documented as of this encounter Visit Diagnoses Diagnosis Folliculitis Other specified disease of hair and hair follicles documented in this encounter Care Teams Economic Specialist Relationship Specialty Start Date End Date [place] [address] PCP - General Family Medicine 01/20/22 documented as of this encounter
--- OUTSIDE RECORDS SUMMARY | 2024-06-16 15:23 | XMS_ITS | Encounter Summary ---
Author Organization [facility] Address [address] [place] [address] Care Team Providers Care Veneer Sheet Repairer Name Role Phone Rita Kahn DO Unavailable [phone] Tremaine Shankar MD Primary Care Provider + Reason for Visit * Reason Comments Nutrition Counseling Encounter Details Date Type Department Care Team (Late st Contact Info) Description 10/22/2020 8:30 EST Nutrition [address] [address] Rita Martinez, RD 118 [facility] [address] [place] [phone] Class 3 severe obesity with body mass index (BMI) of 50.0 to 59.9 in adult, unspecified obesity type, unspecified whether serious comorbidity present ([facility]) (Primary Dx) Social History Tobacco Use Types [...] Progress Notes * Rita Carnes, KEV - 10/22/2020 0830 EST [facility] Adult Primary Care & Family Medicine Registered Dietitian Follow up Encounter Date of visit: 10/22/2020 Venkata arrives at today's nutrition visit for [...] Carnes RD Goals from previous nutrition visit: 10/08/2020 PATIENT IDENTIFIED GOALS: weight loss, goal weight 350 lbs. No additional, specific goal established today. ?? PLAN: ?? 3 balanced, consistent meals per day w/ whole grains, lean protein, 5 servings non-starchy vegetables and 4 servings fruit ?? <10% total energy from saturated fat and increased focus on mono and polyunsaturated fats ?? <6 teaspoons (<24g) added sugar daily ?? <1500 mg sodium daily ?? 30-60 minutes aerobic and strength training exercise 3-5 days per week. SUBJECTIVE: Venkata reports being rather grumpy and tired lately. Associates these with medication changes since discharge from hospital, zacariastropine. Has a follow up with PCP this afternoon. Nutrition: Venkata reports not eating as much lately, not much of an appetite. , [place], has been getting takeout most nights - Venkata reports eating some of the food and night and then some leftovers or bakedgood in the morning, but not eating during the day. Has some bananas and avocado in the house - shares that he hasn't even been looking in the fridge, he's not interested. Has been drinking water anddiet soda. Writes down intentions during today's visit - ?? Look in refrigerator ?? Share cooking responsibilities ?? Take on some responsibilities of food shopping Physical Activity: Reduced activity. Has been sleeping a lot. Has been dancing some. OBJECTIVE: Nutrition Focused Physical Exam: Not completed, [...] obesity type, unspecified whether serious comorbidity present ([facility]) E66.01 278.01 Z68.43 V85.43 Etiology: History of imbalanced nutrition, inconsistent meal timing, physical inactivity and history of excessive energy intake. Signs & Symptoms: Elevated BMI (see above), per report weight loss; current weight 377 lbs. Intervention: MNT/Education: Engaged patient in conversation related to positive behavior change, self-management, goal setting and action planning using motivational interviewing and active listening. ?? Reviewed medical history, labs, and medications/supplements. ?? Reviewed dietary intake and physical activity. ?? Discussed health goals, including motivators and barriers. Discussed motivation for making healthy changes; explored beliefs about making change and ambivalence. RD utilized CA techniques including reflective listening, normalization, and eliciting change talk ?? Brainstormed intentions for self care and diet. MNT/Educational Materials Provided: None Learning Readiness and Receptivity to Nutrition Education: Receptive to education and demonstrated fair understanding; will likely require additional exposure and reinforcement STAGE OF CHANGE: Preparation PATIENT IDENTIFIED GOALS: weight loss, goal weight 350 lbs. Review intentions from today's visit. PLAN: ?? 3 balanced, consistent meals per [...] strength training exercise 3-5 days per week Monitoring & Evaluation: RD to monitor dietary intake and physical activity, understanding of nutrition education and recommendations, nutrition related labs and vitals Total time spent with patient on nutrition counselin minutes Anodizer used: no Thank you for your referral, Rita Carnes MS, RD, CD Clinical Dietitian [facility] Adult Primary Care & Family Medicine [...] more about your health please visit: [email or web address]://www.[email or web address]/medcenter/Pages/Wellness-Resources/Dszbaalaf-Eopvuu-Uf sourc e-Center.aspx documented as of this encounter Visit Diagnoses Diagnosis Class 3 severe obesity with body mass index (BMI) of 50.0 to 59.9 in adult, unspecified obesity type, unspecified whether serious comorbidity present ([facility])- Primary documented in this encounter Care Teams Veneer Sheet Repairer Relationship Specialty Start Date End Date Rita Kahn DO [address] [place], [place] [phone] PCP - Alternate 02/13/18 03/16/21 Tremaine Shankar MD 1 [facility] [address] [place] [phone] PCP - General 06/25/18 03/29/22 documented as of this encounter
--- OUTSIDE RECORDS SUMMARY | 2024-06-16 15:23 | XMS_ITS | Referral Summary ---
Author Organization [facility] Address [address] [place] [address] Care Team Providers Care Cycle Specialist Name Role Phone Unavailable Primary Care Provider [...] most recent episode manic, with psychotic features ([facility]) 09/21/2020 Encounter for long-term (current) use of other m edications 04/09/2019 Acute left ankle pain 04/08/2018 Anxiety 06/20/2016 Primary insomnia 05/10/2016 NIA (obstructive sleep apnea) 10/29/2015 Overview: Diagnosed 10/27/15-to start CPAP Adult BMI 40.0-44.9 kg/sq m ([facility]) 10/29/2015 Scalp cyst 08/25/2015 Allergic rhinitis 12/05/2007 Resolved Problems Problem Noted Date Diagnosed Date Resolved Date Psychosis ([facility]) 09/21/2020 10/04/19 21 Psychotic episode ([facility]) 10/29/2015 10/04/2020 Overview: Briefly hospitalized in 2013 [...] Varicella (Chickenpox) vacci ne (VARIVAX) SQ 09/24/1988 Social History Tobacco Use Types Packs/Day Years [...] Body Mass Index 53 09/23/2020 1240 EST Functional Status Functional Status Response Date of [...] concentrating, remembering, or making decisions? No 04/22/2018 Plan of Treatment Not on file Goals Goal Patient Goal Type Associated Problems [...] learn more about your health please visit: https://www.[facility].org/medcenter/Pages/Wellness-Resources/Yiceausvc-Tscqxw-Wi [facility] e-Center.aspx Advance Directives For more information, please contact: [phone] * Full Code (Latest Code Status on File) Date Activated Date Inactivated Comments 09/21/2020 20:35 10/04/2020 17:57 Question Answer Comments Reason for decision includes: Full code consistent with overall plan of care Who participated in the discussion? Not Discusse d
--- OUTSIDE RECORDS SUMMARY | 2024-06-16 15:23 | XMS_ITS | Encounter Summary ---
Author Organization [facility] Address [facility] [place] [address] Care Team Providers Care Activities Aide Name Role Phone Santhosh, Jeanne Flood APRN Primary Care Provider [phone] Reason for Visit * Reason Comments Rash * Consultation (Routine) - Closed Specialty Diagnoses / Procedures Referred By Contac t Referred To Contact Dermatology Diagnoses Rash Dallas Simpson PA [facility] [address] [facility] [place] [address] [facility] Dermatology [address] [place] [address] Referral ID Status Reason Start Date Expiration Date V isits Requested Visits Authorized [id number] Closed Consult, Test & Treat 11/02/2021 11/02/2022 1 1 Encounter Details Date Type Department Care Team (Late st Contact Info) Description 01/20/2022 3:00 PM EDT Office Visit Dermatology at [facility] [address] [place] [phone] Carlitos Cantor MD [facility] [address] [facility]ON[facility] [place] [address] Hidradenitis suppurativa Social History Tobacco Use Types [...] as of this encounter Progress Notes * Carlitos Cantor MD - 01/20/2022 3:00 PM EDT Images from the original note were not included. DEPARTMENT OF DERMATOLOGY Medical Dermatology Clinic Note Provider: Carlitos Cantor MD Patient's preferred name Venkata Preferred [...] of Present Illness: Venkata Zhao is a 36 y.o. year old. Patient is referred to the clinicat the request of Dallas Simpson for the following concerns: 3 months ago, Venkata started developing lesions on the scalp that he thinks were yellow pustules. The lesions would pop, scab over, and slowly heal. This has largely cleared up at this time, which heattributes to being on an oral antibiotic. 1 week ago, he developed a painful swollen lump on his right proximal medial thigh. He was seen [facility] urgent care where he had the lesion drained and he was placed on an oral antibiotic. He has noticed slow steady improvement in this area since. Otherwise feels well and denies fevers/chills/nightsweats. No axillary involvement. He does not smoke. No history of pilonidal disease or significant acne. Review of Systems: General: Feeling well. Skin: No other skin concerns. Medications: Reviewed in eD-H Allergies: Reviewed in eD-H Skin Examination: Full skin examination: Patient asked to undress to their comfort level. Verbalized that the provider's preference is that patient removal all clothing and that the provider will not examine areas patient elects to keep covered. Examination of the scalp, hair, head, face, ears, neck, chest, axillae,abdomen, back, buttocks, and upper and lower extremities.Genitalia was not examined. Assessment/Plan #. Carbuncle vs Early Hidrosadenitis Suppurativa Exam: on the right proximal medial thigh, there are indurated erythematous subcutaneous nodules / cyst with active drainage and ulceration. Single smaller nodule on the left medial thigh. No axillaryinvolvement. No active pustules on the scalp; however, there are some follicular based superficially eroded papules. - Reviewed above differential in detail. - Handout provided on HS for patient education - Recommended: start Rx: Doxycycline 100mg take twice daily for 3 months. Instructed to take with afull glass of water and not to lie down within 30 minutes of taking dose. Discussed common side effects/risks. -Recommend OTC Cera Va SA wash & lotion - use to scalp, buttock, and thighs daily. -Recommend OTC Hibiclens - use as body wash 3 x's weekly Photo was taken and charted with patient's verbal consent. Other items to document in the assessment/plan if relevant ??? OTC skin products discussed RTC: 3 months for HS follow up []Note routed to pathology secretary []Recall has been placed in scheduling system []Appointment scheduled at checkout Scribe attestation: Mohini aVle [facility] who has performed the documentation for this encounter in the presence of and acting as a scribe for Carlitos Cantor MD. I performed the above scribed service and agree with the accuracy of the documentation in this encounter. Reviewed and signed by: Carlitos Cantor MD Dermatology [facility] Patient seen and evaluated with staff pool player: Katiuska Berry MD Department of Dermatology [facility] * Katiuska Berry MD - 01/20/2022 3:00 PM EDT I directly supervised Dr. Cantor in the care of this patient. I saw and evaluated this patient with Dr. Cantor. He presented the history and physical exam detailsto me, then we saw the patient together and I confirmed these findings. I agree with details as written. My physical examination confirms Dr. Cantor' findings. The assessment and plan were formulated in discussion with me at the time of visit and I agree withthem as documented. KATIUSKA BERRY MD FAAD Staff Physician documented in this encounter Plan of Treatment Not on file documented as of this encounter Visit Diagnoses Diagnosis Hidradenitis suppurativa Hidradenitis documented in this encounter Care Teams Activities Aide Relationship Specialty Start Date End Date Jeanne Trevizo, WIND ENERGY [place] [address] [place] [address] PCP - General Family Medicine 01/20/22 documented as of this encounter
--- OUTSIDE RECORDS SUMMARY | 2024-06-16 15:23 | XMS_ITS | Encounter Summary ---
Author Organization [facility] Address [address] [place] [address] Care Team Providers Care Spike Driver Name Role Phone KahnRita soriano DO Unavailable [phone] Tremaine Shankar MD Primary Care Provider + Reason for Visit * Reason Comments Social Work Encounter Details Date Type Department Care Team (Late st Contact Info) Description 10/08/2020 Community Health Team [facility] Adult Primary Care - [address] [id number] Katie Roy Social History Tobacco Use Types Packs/Day Years [...] as of this encounter Progress Notes * Katie Roy - 10/08/2020 0901 EST ..CHT Social Work Therapy Referral Request Patients presentation was agitated, some fe, interruption, and confusion- but with some limits, patient was able to be on track to communicate. Presenting Issues: Patient presented that he was inpatient involuntary/voluntary psychiatry for 2 weeks throughout the holiday. Patient reports that he was fighting with his , 08/03 psychiatric episode. Discharged on 10/06, wet room worker inpatient was referred to [facility] Psychiatry per patient. Patient reports that inpatient referred patient to access [facility] reported to patient that [facility] is full. Patient has been seeing [facility] online for primary care. 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 Disorder, patient reports not managing it Goals for Therapy: Patient is looking for psychiatry Medication: Patient reports that he has had a complete change in medication- Benztropine, .5MG x2 daily Haloperidol, 20mg daily Melatonin, 20mg Vitamin D, 1000 daily Tylenol as needed Previous Therapy: Lul Salguero, current therapist [facility] historic managing medications Wellness Sleep: Patient reports sleep last night was fantastic but has had patterns of disruption Exercise/Diet: Patient reports overweight, working with financial services specialist poor diet and exercise routines. 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 Patient will attend [facility] Appointment with PA to establish Primary care and bereferred for Psychiatry. 2. Patient will no longer be a patient at [facility] according to conversation with Psychiatry. [facility], [address] [place] [address] Total Time: 1 hour call, 30m care coordination, 10m chart Referral: [facility] Follow up: patient to attend [facility] appointment Status: Inactive documented in this encounter Plan of Treatment [...] learn more about your health please visit: https://www.[facility].org/medcenter/Pages/Wellness-Resources/Zeblztcry-Vmlilv-Gm sourc e-Center.aspx documented as of this encounter Visit Diagnoses Not on filedocumented in this encounter Care Teams Spike Driver Relationship Specialty Start Date End Date Rita Kahn DO [address] [place] [phone] PCP - Alternate 02/13/18 03/16/21 Tremaine Shankar MD [address] [place] [address] [address] [place] [phone] PCP - General 06/25/18 03/29/22 documented as of this encounter
--- OUTSIDE RECORDS SUMMARY | 2024-06-16 15:23 | XMS_ITS | Encounter Summary ---
Author Organization [facility] Address [address] [place] [address] Care Team Providers Care Foundation Digger Name Role Phone Unavailable Primary Care Provider Unavailabl e Encounter Details Date Type Department Care Team (Late st Contact Info) Description 10/05/2022 Lab Requisition [facility] Pathology & Laboratory Medicine - [facility] [address] [place] [address] Outr Resulting Lab, Provider Social History Tobacco Use Types Packs/Day Years [...] about your health please visit: https://www.[facility].org/medcenter/Pages/Wellness-Resources/Ijkqbyzlj-Jjlbly-Fy [facility] e-Center.aspx documented as of this encounter Procedures Procedure Name Priority Date/Time Associated Diagnosis Comments T3 FREE Routine 10/05/2022 13:13 EST documented in this encounter Results * T3 FREE (10/05/2022 13:13 EST) T3, Free 3.3 2.8 - 5.3 pg/mL 10/05/2022 22:17 EST [facility] Blood VENOUS BLOOD / Unknown 10/05/2022 13:13 EST 10/05/2022 21:43 EST Provider Outr Resulting Lab CHEMISTRY & BLOOD GAS ORDERABLES [facility] [address] [place] [address] documented in this encounter Visit Diagnoses Not on filedocumented in this encounter
--- OUTSIDE RECORDS SUMMARY | 2024-06-16 15:23 | XMS_ITS | Encounter Summary ---
Author Organization [facility] Address [address] [place] [address] Care Team Providers Care Sample Finisher Name Role Phone Rita Kahn DO Unavailable [phone] Tremaine Shankar MD Primary Care Provider + Reason for Visit * Reason Comments Nutrition Counseling Encounter Details Date Type Department Care Team (Late st Contact Info) Description 12/03/2020 11:00 EST Nutrition [address] [id number] Rita Martinez, RD 118 [facility] [address] [place] [phone] Class 3 severe obesity with body mass index (BMI) of 50.0 to 59.9 in adult, unspecified obesity type, unspecified whether serious comorbidity present ([facility]) (Primary Dx) Social History Tobacco Use Types [...] Progress Notes * Rita Carnes, KEV - 12/03/2020 1100 EST [facility] Adult Primary Care & Family Medicine Registered Dietitian Follow up Encounter Date of visit: 12/03/2020 Venkata arrives at today's nutrition visit for [...] Carnes RD Goals from previous nutrition visit: 11/05/2020 PATIENT IDENTIFIED GOALS: cook more at home, from scratch ?? PLAN: ?? No specific plan SUBJECTIVE: Venkata states he's lost a little bit of weight and thinks he's regaining weight. Not monitoring weight at home or at least hasn't recently. Nutrition: Reports making some meals at home - bolognese Grocery shopping and buying some undesirable foods, such as oreos. Venkata shares that when he buys these foods he will often eat half the box the next day as replacement. Shares that 80% of the meals are in front of the TV Dinner is the most consistent meal - ?? Breakfast - yanick bar or belvita bar ?? Lunch - leftovers or --- ?? Dinner - bolognese ?? Not really eating after dinner ?? Not clear if he is snacking Purchased Marcel and is adding to water throughout the day and not having as much diet pepsi. Still has about 2diet pepsi's each day; regular, not caffeine free. Shares that he is not that focused on diet and eating right now. Alcohol 1 beer in the last month Sleep: Earlier bedtime - <10 PM Stress: Notes increased dose of lithium (now 600 mg BID) starting early October. the pain of being an adult is less severe with the 600 mg lithium. Was fired from his job as he could not complete his responsibilities and work on self healing. Physical Activity: Has been walking the dogs around the neighborhood. Doctor has recommended Venkata to take the dogs in the car and go for a walk on some nature/hiking trails. OBJECTIVE: Nutrition Focused Physical Exam: Not completed, [...] obesity type, unspecified whether serious comorbidity present ([facility]) E66.01 278.01 Z68.43 V85.43 Etiology: [...] health goals, including motivators and barriers. Discussed mindful eating and intuitive eating practices, including hunger and satiety cues. Provided and reviewed MNT for Healthy Weight Loss. Reviewed significance and importance of consistent meal timing as related to nutrient metabolism and storage and maintaining steady blood glucose levels. Discussed MyPlate and balanced meals, snacks, and health benefits of maintaining balanced blood glucose levels throughout day. Reviewed relationship between meal composition (high carbohydrate vs balanced), blood glucose levels, nutrient metabolism and storage. Reviewed nutrition recommendations for vegetable and fruit consumption. Discussed motivation for making healthy changes; explored beliefs about making change and ambivalence. RD utilized SD techniques including reflective listening, normalization, and eliciting change talk MNT/Educational Materials Provided: Mindful Eating Learning Readiness and Receptivity to Nutrition Education: Receptive to education and demonstrated fair understanding; will likely require additional exposure and reinforcement STAGE OF CHANGE: Contemplation PATIENT IDENTIFIED GOALS: no specific goal today PLAN: ?? Review mindful eating resources Monitoring & Evaluation: RD to monitor dietary intake and physical activity, understanding of nutrition education and recommendations, nutrition related labs and vitals Total time spent with patient on nutrition counselin minutes Hypo Dipper used: no Thank you for your referral, iRta Carnes, MS, RD, CD Clinical Dietitian [facility] Adult Primary Care & Family Medicine [...] learn more about your health please visit: https://www.[facility].org/medcenter/Pages/Wellness-Resources/Zfuijaeqi-Axldsg-Qv sourc e-Center.aspx documented as of this encounter Visit Diagnoses Diagnosis Class 3 severe obesity with body mass index (BMI) of 50.0 to 59.9 in adult, unspecified obesity type, unspecified whether serious comorbidity present ([facility])- Primary documented in this encounter Care Teams Sample Finisher Relationship Specialty Start Date End Date Rita Kahn DO [address] [place] [phone] PCP - Alternate 02/13/18 03/16/21 Tremaine Shankar MD 1 [facility] [address] [place] [address] PCP - General 06/25/18 03/29/22 documented as of this encounter
--- OUTSIDE RECORDS SUMMARY | 2024-06-16 15:23 | XMS_ITS | Encounter Summary ---
Author Organization [facility] Address [address] [place] [address] Care Team Providers Care Powerhouse Tender Name Role Phone Tremaine Shankar MD Primary Care Provider + Dallas Canas MD PhD Unavailable Unavailabl e Encounter Details Date Type Department Care Team (Late st Contact Info) Description 02/23/2022 Lab Requisition [facility] Pathology & Laboratory Medicine - [facility] [address] [place] [address] Outr Resulting Lab, Provider Social History Tobacco [...] your health please visit: [email or web address]/Pages/Wellness-Resources/Rwfbxpckb-Gyzbay-Xx [email or web address] e-Center.aspx documented as of this encounter Procedures Procedure Name Priority Date/Time Associated Diagnosis Comments LITHIUM Routine 02/23/2022 12:15 EDT documented in this encounter Results * LITHIUM (02/23/2022 12:15 EDT) [place] 0.6 See Note mmol/L 02/23/2022 21:23 EDT [facility] Comment: 18 years and older: Therapeutic range: 0.6 - 1.2 mEq/L Potentially toxic: >1.5 mEq/L Therapeutic range not established for individuals <18 years old. Blood VENOUS BLOOD / Unknown 02/23/2022 12:15 EDT 02/23/2022 21:07 EDT Provider Outr Resulting Lab CHEMISTRY & BLOOD GAS ORDERABLES [facility] [address] [place] [address] documented in this encounter Visit Diagnoses Not on filedocumented in this encounter Care Teams Powerhouse Tender Relationship Specialty Start Date End Date Tremaine Shankar MD 1 [facility] [address] [place] [address] PCP - General 06/25/18 03/29/22 Dallas Canas MD PhD 1 [facility] [address] [place] [address] PCP - Alternate 03/17/21 03/29/22 documented as of this encounter
--- OUTSIDE RECORDS SUMMARY | 2024-06-16 15:23 | XMS_ITS ---
[place] [address] Care Team Providers Care Tag Clerk Name Role Phone Jeanne Trevizo APRN Primary Care Provider [phone] Dermatology Status:Enrolled (Active) Start date:04/24/2023 Enrollment date:04/24/2023 Enrollment reason:Enrolled - Currently Fills with Specialty Current support & services provided:Clinical Management, Refill Management Linked medications:secukinumab (Active) Linked problems:Hidradenitis suppurativa (Active) Continued Care and Services Coordination
--- OUTSIDE RECORDS SUMMARY | 2024-06-16 15:24 | XMS_ITS | Encounter Summary ---
Author Organization [facility] Address [address] [place] [address] Care Team Providers Care Real Estate Internship Name Role Phone Rita Kahn DO Unavailable [phone] Tremaine Shankar MD Primary Care Provider + Reason for Visit * Reason Comments Nutrition Counseling Encounter Details Date Type Department Care Team (Late st Contact Info) Description 02/18/2020 Community Health Team [facility] Adult Primary Care - [address] [id number] Rita Martinez, RD [address] [facility] [address] [place] [phone] Social History Tobacco Use Types Packs/Day Years Used Date Smoking Tobacco: Former Cigarettes 0 8.9 2 005 - 08/28/2013 Smokeless Tobacco: Never Alcohol Use Standard Drinks/Week Comments Yes 0 (1 standard drink = 0.6 oz pur e alcohol) 2 Sex and Gender Information Value Date Recorded [...] Progress Notes * Rita Carnes, KEV - 02/18/2020 0933 EDT Community Health Team Registered Dietitian Follow up Encounter Date of visit: 02/18/2020 Nutrition education and counseling follow up encounter with Venkata Zhao for Morbid obesity. Goals from previous nutrition visit: 02/04/2020 PATIENT IDENTIFIED GOALS: weight loss (no specific lb) ?? PLAN: ?? Put the batteries in the scale; monitor weight weekly ?? Plan more movement ([employer] during baseball game, walking, dancing) ?? Continue to plan meals and portion size ?? Plan an activity to do on nice day (jog, walk) SUBJECTIVE: Venkata states: Weighed self - 402 lbs; panicked after realizing that his weight had gone over 400 lbs; today 392lbs, but has seen as low as 388 lbs. This increased Venkata's intrinsic motivation to start moving - walking with dog, yard work at mom'sand grandmother's Nutrition: Reports changes to diet as well: Eating salads w/ roasted chicken breast Made bok elisha and pork soup Reports waking early (530am) and letting the dog out; once he's up he'll have something to eat, yogurt w/ jose alberto tea - reports vomiting (*new*) and this has happened a few times. States that he's notalways hungry first thing in the morning but will eat anyway, sometimes will go back to bed after this breakfast Was raised on dairy - questions, is milk good? Drank it during high school when he was playing sports Asks about support groups for weight loss Did WW in 5th grade and states that he didn't really get the point system back then Physical Activity: Walking Daily stretches Yard work and his mom's and grandmother's house; states that he likely wouldn't have done this if he wasn't trying to lower his weight, improve health OBJECTIVE: Nutrition Focused Physical Exam: Not completed, per provider discretion Anthropometrics: Wt Readings from Last 3 Encounters: 09/29/19 (!) 178.2 kg (392 lb 12.8 oz) 03/07/19 (!) 169.5 kg (373 lb 9.6 oz) 04/22/18 (!) 168.3 kg (371 lb) BP Readings from Last 3 Encounters: 09/29/19 110/70 04/09/19 110/80 03/07/19 104/62 Estimated body mass index is 54.78 kg/m?? as calculated from the following: Height as of 03/07/19: 180.3 cm (71). Weight as of 09/29/19: 178.2 kg (392 lb 12.8 oz). Labs: Lab Results Component Value Date WBC 8.54 06/22/2018 RBC 5.99 (H) 06/22/2018 HGB 17.2 06/22/2018 HCT 49.1 06/22/2018 MCV 82 06/22/2018 MCH 28.7 06/22/2018 PLT 214 06/22/2018 NA 140 06/22/2018 K 3.7 06/22/2018 CL 102 06/22/2018 CO2 24 06/22/2018 BUN 11 06/22/2018 CREATININE 0.90 06/22/2018 CALCIUM 10.0 06/22/2018 Lab Results Component Value Date CHOL 120 04/07/2019 CHOL 138 10/13/2016 CHOL 147 07/31/2016 HDL 51 04/07/2019 HDL 50 10/13/2016 HDL 44 07/31/2016 LDLBASE 55 04/07/2019 LDLBASE 73 10/13/2016 LDLBASE 77 07/31/2016 TRIG 70 04/07/2019 TRIG 75 10/13/2016 TRIG 131 07/31/2016 CHOLHDL 2.4 04/07/2019 CHOLHDL 2.8 10/13/2016 CHOLHDL 3.3 07/31/2016 Lab Results Component Value Date HGBA1C 5.5 04/07/2019 HGBA1C 5.0 07/31/2016 Lab Results Component Value Date TSH 0.65 10/01/2012 Medications: Current Outpatient Medications: ARIPiprazole (ABILIFY) 5 mg tablet fluocinonide (LIDEX) 0.05 % ointment LORazepam (ATIVAN) 1 mg tablet melatonin 3 mg tablet therapeutic hand-body (EUCERIN ORIGINAL) lotion traZODone (DESYREL) 100 mg tablet No current facility-administered medications for this visit. Drug-Nutrient Interactions - Not discussed at today's visit NUTRITION ASSESSMENT: Venkata Zhao arrives at today's visit for continuation of medical nutrition therapy for Morbid obesity Nutrition Diagnosis: Morbid Obesity Etiology: History of imbalanced nutrition, inconsistent meal timing, physical inactivity and Predicted excessive energy intake Signs & Symptoms: Elevated BMI (see above), reports 10+ lb wt loss in the last 2 weeks after realizing his weight was over 400 lbs Intervention: MNT/Education: Engaged patient in conversation related to positive behavior change, self-management, goal setting and action planning using motivational interviewing and active listening. ?? Reviewed medical history, labs, and medications/supplements. ?? Reviewed dietary intake and physical activity. ?? Discussed health goals, including motivators and barriers. ?? Provided and reviewed MNT for Healthy Weight Loss. Reviewed significance and importance of consistent meal timing as related to nutrient metabolism and storage and maintaining steady blood glucoselevels. Discussed MyPlate and balanced meals, snacks, and health benefits of maintaining balanced blood glucose levels throughout day. Reviewed relationship between meal composition (high carbohydrate vs balanced), blood glucose levels, nutrient metabolism and storage. Reviewed nutrition recommendations for vegetable and fruit consumption. ?? Reviewed food and symptom (GI) tracking for purpose of increasing awareness of food intake and more accurate nutrition assessment, and insight into relationship to symptoms. Discussed mindful eating and intuitive eating practices, including hunger and satiety cues. Reviewed options for local support groups for weight loss MNT/Educational Materials Provided: n/a Learning Readiness and Receptivity to Nutrition Education: Receptive to education and demonstrated good understanding Recommendation/Plan: For healthy weight loss RD recommends: ?? 3 balanced, consistent meals per day w/ whole grains, lean protein, 5 servings non-starchy vegetables and 4 servings fruit ?? <10% total energy from saturated fat and increased focus on mono and polyunsaturated fats ?? <6 teaspoons (<24g) added sugar daily ?? <1500 mg sodium daily ?? See PLAN below ?? 30-60 minutes aerobic and strength training exercise 3-5 days per week Monitoring & Evaluation: RD to monitor dietary intake and physical activity, GI, understanding of nutrition education and recommendations, nutrition related labs and vitals STAGE OF CHANGE: Action PATIENT IDENTIFIED GOALS: 38 lb wt loss PLAN: Walk 1 hour per day, 3 days per week Drink water and tea; continue to limit/avoid diet soda, regular soda, sugar sweetened beverages, juice and milk as beverages Listen to hunger cues; track Gi symptoms (r/t vomiting first thing in the morning, eating when not necessarily hungry) Balanced and consistent meals; limit sweets Look into some of the options for weight loss support groups - Weight Watchers, Weight Control Group (Dr. Astrid Echavarria), Shared Medical Appointment w/ Dr. Carlitos Dow ADDITIONAL INFORMATION FOR PROVIDER: Venkata would like to meet in a weekly basis for the next month. He recently weighed himself at home and was panicked to see that he was above 400 lbs. Since he has made several changes to diet and lifestyle and has great motivation and is down 10 lbs already. We will meet weekly for the next 4 weeks and then reassess. Patient's Primary Care Site: [facility] [place], [address] [place] [address] Total Time: 60 minutes (45 telehealth phone, 15 charting) Referral: none Follow up: weekly visits for the next month Date: Sunday, February 26, , 2019 Time: 8 AM With: Rita Carnes Registered Dietitian Location: PHONE Status: Active Thank you for your referral, Rita Carnes MS, RD, CD Clinical Dietitian Community Health Team documented in this encounter Plan of Treatment [...] learn more about your health please visit: [email or web address]://www.[facility].org/medcenter/Pages/Wellness-Resources/Rdjbjfgbc-Vhyosb-Ym [facility] e-Center.aspx documented as of this encounter Visit Diagnoses Not on filedocumented in this encounter Care Teams Real Estate Internship Relationship Specialty Start Date End Date Rita Kahn DO [address] [place] [phone] PCP - Alternate 02/13/18 03/16/21 Tremaine Shankar MD 1 [facility] [address] [place] [address] PCP - General 06/25/18 03/29/22 documented as of this encounter
--- OUTSIDE RECORDS SUMMARY | 2024-06-16 15:24 | XMS_ITS | Encounter Summary ---
Author Organization [facility] Address [address] [place] [address] Care Team Providers Care Paralegal Supervisor Name Role Phone Kahn, Rita Eder DO Unavailable [phone] Tremaine Shankar MD Primary Care Provider + Reason for Visit * Reason Onset Date Comments Medications Refill 02/27/2019 Encounter Details Date Type Department Care Team (Late st Contact Info) Description 02/27/2019 Refill [facility] Adult Primary Care [address] [address] Demario Miller DO 111 [facility] [address] [place] [address] Medications Refill Social History Tobacco Use Types Packs/Day Years Used Date Smoking Tobacco: Former Cigarettes 8 8.9 2 005 - 08/28/2013 Smokeless Tobacco: [...] No 04/22/2018 documented as of this encounter Ordered Prescriptions Prescription Sig Dispensed Refills Start Date End Da te ARIPiprazole (ABILIFY) 5 mg tabletIndications:Anxiety Take 1 Tab by mouth daily. 30 Tab 3 03/03/2019 07/16/2019 documented in this encounter Miscellaneous Notes * Telephone Encounter - Huma Saucedo - 02/27/2019 1124 EDT Medication(s) Requested: Abilify Preferred Pharmacy: [facility] Is patient out of medication? Unknown Last Refill Date: 01.30.19 Last Visit Date with Ordering Provider: 08.07.18 Next Non-Acute Visit Date Scheduled with Care Team: Yes. Huma Saucedo 02/27/2019 11:25 documented in this encounter Plan of Treatment [...] learn more about your health please visit: https://www.[facility].org/medcenter/Pages/Wellness-Resources/Mcczrpyvo-Hlaspf-Mb sourc e-Center.aspx documented as of this encounter Visit Diagnoses Diagnosis Anxiety- Primary Anxiety state, unspecified documented in this encounter Discontinued Medications Medication Sig Discontinue Reason Start Date End Da te ARIPiprazole (ABILIFY) 5 mg tabletIndications:Anxiet y Take 1 tablet by mouth daily. Reorder 01/30/2019 02/27/2019 documented as of this encounter Care Teams Paralegal Supervisor Relationship Specialty Start Date End Date Rita Kahn DO [address] [place] [address] PCP - Alternate 02/13/18 03/16/21 Tremaine Shankar MD 1 [address] [place] [address] PCP - General 06/25/18 03/29/22 documented as of this encounter
--- OUTSIDE RECORDS SUMMARY | 2024-06-16 15:24 | XMS_ITS | Encounter Summary ---
Author Organization [facility] Address [address] [place] [address] Care Team Providers Care Toeing Stockings Name Role Phone Rita Kahn DO Unavailable [phone] Tremaine Shankar MD Primary Care Provider + Encounter Details Date Type Department Care Team (Latest Contact Info) Description 04/07/2019 9:54 EDT - 04/07/2019 23:59 EDT Hospital Encounter [address] [address] Tremaine Shankar MD [address] [place] [phone] Discharge Disposition: Auto Discharge Social History Tobacco Use Types Packs/Day Years [...] No 04/22/2018 documented as of this encounter Discharge Diagnoses Diagnosis E66.01 Morbid (severe) obesity due to excess calories-E66.01[ICD-10-CM] Z68.43 Body mass index (BMI) 50-59.9, adult-Z68.43[ICD-10-CM] R73.09 Other abnormal glucose-R73.09[ICD-10-CM] documented in this encounter Medications at Time of Discharge Medication Sig Dispensed Refills Start Date End Date ARIPiprazole (ABILIFY) 5 mg tabletIndications:Anxie ty Take 1 Tab by mouth daily. 30 Tab 3 03/03/2019 07/16/2019 fluocinonide (LIDEX) 0.05 % ointment Apply topically 2 times daily. Do not apply to face, armpit or groin. 60 g 3 06/05/2017 04/01/2020 LORazepam (ATIVAN) 1 mg tablet Take 1 Tab by mouth 2 times daily. Daily Max: 2 mg 15 Tab 03/07/2019 09/29/2019 LORazepam (ATIVAN) 1 mg tablet Take 1 Tab by mouth every 6 hours. Daily Max: 4 mg 15 Tab 08/07/2018 09/29/2019 melatonin 3 mg tablet TAKE ONE TABLET BY MOUTH EVERY NIGHT AT BEDTIME NEEDED FOR INSOMNIA 30 Tab 3 09/18/2016 04/01/2020 therapeutic hand-body (EUCERIN ORIGINAL) lotion Apply topically as needed. 10/04/2020 traZODone (DESYREL) 100 mg tabletIndications:Anxie ty,Psychophysiological insomnia Take 1 Tab by mouth at bedtime. 30 Tab 3 04/10/2019 09/11/2019 documented as of this encounter Discharge Disposition Disposition Code Departure Means Destination Auto Discharge Home documented in this encounter Plan of Treatment [...] learn more about your health please visit: https://www.[facility].org/medcenter/Pages/Wellness-Resources/Qxnsjzpkt-Tdgxzh-Pd sourc e-Center.aspx documented as of this encounter Visit Diagnoses Not on filedocumented in this encounter Care Teams Toeing Stockings Relationship Specialty Start Date End Date Rita Kahn DO [address] [place] [address] PCP - Alternate 02/13/18 03/16/21 Tremaine Shankar MD 1 [facility] 1 [place] [address] PCP - General 06/25/18 03/29/22 documented as of this encounter
--- OUTSIDE RECORDS SUMMARY | 2024-06-16 15:24 | XMS_ITS | Encounter Summary ---
Author Organization [facility] Address [address] [place] [address] Care Team Providers Care Coil Builder Name Role Phone KahnRita soriano DO Unavailable [phone] Tremaine Shankar MD Primary Care Provider + Dallas Canas MD PhD Unavailable Unavailabl e Encounter Details Date Type Department Care Team (Late st Contact Info) Description 03/17/2020 Lab Requisition [facility] Pathology & Laboratory Medicine - [facility] [address] [place] [address] Antolin Boles MD [address] [place] [id number] Encounter for screening for other viral diseases Social History Tobacco Use Types Packs/Day Years [...] learn more about your health please visit: https://[email or web address].org/medcenter/Pages/Wellness-Resources/Stnphslvg-Oiozsc-[facility] e-Center.aspx documented as of this encounter Procedures Procedure Name Priority Date/Time Associated Diagnosis Comments DO NOT ORDER STANDALONE - BROAD COVID TEST Today 03/17/2020 11:00 EDT Encounter for screening for other viral diseases COVID-19 TESTING Today 03/17/2020 11:0 0 EDT Encounter for screening for other viral diseases documented in this encounter Results * DO NOT ORDER STANDALONE - BROAD COVID TEST (03/17/2020 11:00 EDT) COVID-19 rt-PCR Result NEGATIVE Negative 03/18/2020 12:09 EDT [facility] Comment: 2019-novel Coronavirus (2019-nCoV) not detected by the qRT-PCR assay. Consider testing for other respiratory viruses or re-collecting for 2019-nCoV testing. Note: Optimum timing for peak viral levels during infections caused by 2019-nCoV have not been determined. Collection of multiple specimens from the same patient may be necessary to detect the virus. Limitations Positive results are indicative of active infection with SARS-CoV-2 but do not rule out bacterial infection or co-infection with other viruses. The agent detected may not be the definite cause of disease. In addition, detection of viral RNA may not indicate the presence of infectious virus or that SARS-CoV-2 is the causative agent for clinical symptoms. Negative results do not preclude SARS-CoV-2 infection and should not be used as the sole basis for patient management decisions. Negative results must be combined with clinical observations, patient history, and epidemiological information. False negative results may also occur if amplification inhibitors are present in the specimen or if inadequate numbers of organisms are present in the specimen. Optimum specimen types and timing for peak viral levels during infections caused by SARS-CoV-2 have not been fully determined. Collection of multiple specimens (types and time points) from the same patient may be necessary to detect the virus. The test was validated for use with upper respiratory specimens obtained via nasopharyngeal or oropharyngeal swabs in VTM, UTM, M4, M5, M6, saline, and MTM media. The performance of this test has not been established for other specimens. Specimens collected using other FDA recommended Specimen Collection Materials listed in the FDA COVID-19 [employer] communication (December 18, 2019) are processed with the caveat that they were not all validated for use with this test and the result must be interpreted in this context. Furthermore, a false negative results may occur if a specimen is improperly collected, transported or handled. If the virus mutates in the RT-PCR target region, SARS-CoV-2 may not be detected or may be detected less predictably. Inhibitors or other types of interference may produce a false negative result. An interference study evaluating the effect of common cold medications was not performed. This test is not FDA-cleared but its performance characteristics were established by our CLIA-certified, CAP-accredited, high complexity laboratory in accordance with CLIA regulations, [employer] [place] [employer] (CAP) guidelines (Dec 11, 2019), and FDA guidance (Nov 22, 2019). This test is only for use under the Food and Drug Administration's Emergency Use Authorization. Swab ENTIRE NASOPHARYNX / Unknown Swab / Unknown 03/17/2020 11:00 EDT 03/17/2020 13:30 EDT Antolin Boles MD MICROBIOLOGY - GENER AL ORDERABLES [facility] [place], [place] * COVID-19 TESTING (03/17/2020 11:00 EDT) COVID-19 rt-PCR Result NEGATIVE Negative 03/18/2020 16:08 EDT [facility] Comment: 2019-novel Coronavirus (2019-nCoV) not detected by the qRT-PCR assay. Consider testing for other respiratory viruses or re-collecting for 2019-nCoV testing. Note: Optimum timing for peak viral levels during infections caused by 2019-nCoV have not been determined. Collection of multiple specimens from the same patient may be necessary to detect the virus. Limitations Positive results are indicative of active infection with SARS-CoV-2 but do not rule out bacterial infection or co-infection with other viruses. The agent detected may not be the definite cause of disease. In addition, detection of viral RNA may not indicate the presence of infectious virus or that SARS-CoV-2 is the causative agent for clinical symptoms. Negative results do not preclude SARS-CoV-2 infection and should not be used as the sole basis for patient management decisions. Negative results must be combined with clinical observations, patient history, and epidemiological information. False negative results may also occur if amplification inhibitors are present in the specimen or if inadequate numbers of organisms are present in the specimen. Optimum specimen types and timing for peak viral levels during infections caused by SARS-CoV-2 have not been fully determined. Collection of multiple specimens (types and time points) from the same patient may be necessary to detect the virus. The test was validated for use with upper respiratory specimens obtained via nasopharyngeal or oropharyngeal swabs in VTM, UTM, M4, M5, M6, saline, and MTM media. The performance of this test has not been established for other specimens. Specimens collected using other FDA recommended Specimen Collection Materials listed in the FDA COVID-19 [employer] communication (December 18, 2019) are processed with the caveat that they were not all validated for use with this test and the result must be interpreted in this context. Furthermore, a false negative results may occur if a specimen is improperly collected, transported or handled. If the virus mutates in the RT-PCR target region, SARS-CoV-2 may not be detected or may be detected less predictably. Inhibitors or other types of interference may produce a false negative result. An interference study evaluating the effect of common cold medications was not performed. This test is not FDA-cleared but its performance characteristics were established by our CLIA-certified, CAP-accredited, high complexity laboratory in accordance with CLIA regulations, [employer] [place] [employer] (CAP) guidelines (Dec 11, 2019), and FDA guidance (Nov 22, 2019). This test is only for use under the Food and Drug Administration's Emergency Use Authorization. Performing Lab [facility] 03/18/2020 16:08 T [facility] Swab Swab / Unknown 03/17/2020 11 :00 EDT 03/17/2020 13:30 EDT Antolin Boles MD MICROBIOLOGY - GENER AL ORDERABLES [facility] [address] [place] [address] [facility] [place], [place] documented in this encounter Visit Diagnoses Diagnosis Encounter for screening for other viral diseases documented in this encounter Care Teams Coil Builder Relationship Specialty Start Date End Date Rita Kahn DO [address] [place] [phone] PCP - Alternate 02/13/18 03/16/21 Tremaine Shankar MD [address] [phone] PCP - General 06/25/18 03/29/22 Dallas Canas MD PhD [address] [phone] PCP - Alternate 03/17/21 03/29/22 documented as of this encounter
--- OUTSIDE RECORDS SUMMARY | 2024-06-16 15:24 | XMS_ITS | Encounter Summary ---
Author Organization [facility] Address [address] [place] [address] Care Team Providers Care Taper And Floater Name Role Phone Rita Kahn Eder DO Unavailable [phone] Tremaine Shankar MD Primary Care Provider + Reason for Visit * Reason Onset Date Comments Medications Refill 01/08/2020 Encounter Details Date Type Department Care Team (Late st Contact Info) Description 01/08/2020 Refill [facility] Adult Primary Care [facility] [address] [place], [place] [phone] Tremaine Shankar MD 1 [facility] Level [address] [place] [address] Medications Refill Social History Tobacco Use Types [...] Dispensed Refills Start Date End Da te traZODone (DESYREL) 100 mg tabletIndications:Anxiety ,Psychophysiological insomnia TAKE ONE TABLET BY MOUTH AT BEDTIME 30 Tab 01/08/2020 04/01/2020 documented in this encounter Miscellaneous Notes * Telephone Encounter - Luis Angel Beck LPN - 01/08/2020 0858 EDT Medication(s) Requested: Trazodone 100mg Preferred Pharmacy: [facility] Is patient out of medication? Unknown Last Refill Date: 12/08/19 (#30) Last Visit Date with Ordering Provider: 09/29/19 Next Non-Acute Visit Date Scheduled with Care Team: No. LUIS ANGEL BECK LPN 01/08/2020 8:58 documented in this encounter Plan of Treatment [...] about your health please visit: https://www.[facility].org/medcenter/Pages/Wellness-Resources/Invkwilcw-Hyepia-Gq sourc e-Center.aspx documented as of this encounter Visit Diagnoses Diagnosis Anxiety Anxiety state, unspecified Psychophysiological insomnia Persistent disorder of initiating or maintaining sleep documented in this encounter Discontinued Medications Medication Sig Discontinue Reason Start Date End Da te traZODone (DESYREL) 100 mg tabletIndications:Anxiet y,Psychophysiological insomnia TAKE ONE TABLET BY MOUTH AT BEDTIME 12/08/2019 01/08/2020 documented as of this encounter Care Teams Taper And Floater Relationship Specialty Start Date End Date Rita Kahn DO [address] [place] [phone] PCP - Alternate 02/13/18 03/16/21 Tremaine Shankar MD 1 [facility] [address] [place] [phone] PCP - General 06/25/18 03/29/22 documented as of this encounter
--- OUTSIDE RECORDS SUMMARY | 2024-06-16 15:24 | XMS_ITS | Encounter Summary ---
Author Organization [facility] Address [address] [place] [address] Care Team Providers Care Medical Records Custodian Name Role Phone Rita Kahn DO Unavailable [phone] Tremaine Shankar MD Primary Care Provider + Reason for Visit * Reason Comments Nutrition Counseling Encounter Details Date Type Department Care Team (Late st Contact Info) Description 08/13/2020 11:30 EST Nutrition [address] [address] Rita Martienz, RD [address] [facility] [address] [place] [phone] Class 3 severe obesity with body mass index (BMI) of 50.0 to 59.9 in adult, unspecified obesity type, unspecified whether serious comorbidity present ([facility]) (Primary Dx) Social History Tobacco Use Types [...] Progress Notes * Rita Carnes RD - 08/13/2020 1130 EST Adult Primary Care & Family Medicine Primary Care Dietitian - Nutrition Follow Up - TELEVIDEO 08/13/20 The concept of Telehealth has been described [...] in today's encounter visit: Rita Carnes RD Subjective Weighed self today and reports maintaining weight loss - current weight 386 lbs. Nutrition Reports increased take out this week than previous weeks. Continues to work on meal planning with , [employer] - meal planning for about 3 days, sometimes includes takeout. Shares that [employer] does most of the grocery shopping; Venkata would like to do more grocery shopping and he states that he???s not ???good?? at it - shares that he buys for very specific meals, which may or may not align with the meal plan. Continues to be limited/significantly-reduced intake of ???junk food.?? Utilizing kitchen tools for food preparation ease - air fryer, slow cooker, nurse plastics. Physical Activity Reports reduced activity. Continues to plan for activities, especially for upcoming winter activities. Continues with online gamming and music/DJ channels. Objective Not available at this time due to [facility] system-wide network outage. Assessment Overweight/obesity r/t imbalanced nutrition, inconsistent eating, physical inactivity, predicted excessive energy intake, as evidenced by elevated BMI. MNT/Education Reviewed plans from previous nutrition visits. Discussed MNT for healthy weight loss and SMART goals. Discussed role of physical activity and meal planning as essential pieces to maintaining weight and encouraging further weight loss. Provided and reviewed Shopping Guide and online recipes for Melissa. Plan - maintain weight loss/current weight 386 lbs - return to longer walks, on his own and with the dogs - continue to work on meal planning with [employer] - follow up September 03, 2020 at 1130am - zoom sent Time Spent: 40 minutes Rita Carnes MS, RD, CD documented in this encounter Plan of Treatment [...] about your health please visit: https://www.[facility].org/medcenter/Pages/Wellness-Resources/Rgquqeztm-Xqgkhe-[facility] e-Center.aspx documented as of this encounter Visit Diagnoses Diagnosis Class 3 severe obesity with body mass index (BMI) of 50.0 to 59.9 in adult, unspecified obesity type, unspecified whether serious comorbidity present ([facility] Primary documented in this encounter Care Teams Medical Records Custodian Relationship Specialty Start Date End Date Rita Kahn DO [address] [place], [place] [phone] PCP - Alternate 02/13/18 03/16/21 Tremaine Shankar MD 1 [facility] [address] [place] [phone] PCP - General 06/25/18 03/29/22 documented as of this encounter
--- OUTSIDE RECORDS SUMMARY | 2024-06-16 15:24 | XMS_ITS | Encounter Summary ---
Author Organization [facility] Address [address] [place] [address] Care Team Providers Care Hyperion Analyst Name Role Phone KahnRita soriano DO Unavailable [phone] Tremaine Shankar MD Primary Care Provider + Reason for Visit * Reason Comments Other SMA Encounter Details Date Type Department Care Team (Late st Contact Info) Description 09/02/2020 14:00 EST Telemedicine [facility] Adult Primary Care - [place] [address] [place], [place] [phone] Carlitos Dow MD 1 [facility] Level [address] [place] [address] Adult BMI 40.0-44.9 kg/sq m ([facility]) (Primary Dx); Somnolence; Anxiety Social History Tobacco Use Types Packs/Day Years Used Date Smoking Tobacco: Former Cigarettes 0 8.9 2 005 - 08/28/2013 Smokeless Tobacco: Never Alcohol Use Standard Drinks/Week Comments Yes 0 (1 standard drink = 0.6 oz pur e alcohol) 2 Hunger Vital Sign Answer Date Recorded Worried [...] - Inhaled Oxygen Concentration - - Weight 176 kg (388 lb) 09/02/2020 1122 EST patie nt reported Height - - Body Mass Index 54.12 03/07/2019 1335 EDT documented in this encounter Functional Status Functional [...] as of this encounter Progress Notes * Argelia Mir - 09/02/2020 1400 EST The concept of ???Telemedicine?? has been described to the patient. Patient has been informed of the anticipated benefits and possible risks. Patient understands the information provided regarding telemedicine, has had the opportunity to ask questions about this information, and all questions havebeen answered to patient???s satisfaction. Patient consents for the use of telemedicine in his/her medical care and authorizes the transmission of any relevant medical information to providers and their staff involved in patient???s medical or mental health care. TELEMEDICINE VIDEO VISIT Today's visit was provided through telemedicine video conferencing: I have reviewed the appropriateness of using video technology with the patient with regards to today's visit. The location of the patient : Home The location of the provider: Office The following staff and their role did participate in today's encounter visit: Argelia Mir * Carlitos Dow MD - 09/02/2020 1400 EST Shared Medical Appointment - Video Visit HPI: Venkata is here for a shared medical appointment via televideo. Last visit goals: Get back into see Rita Carnes Updates: Venkata last joined us in May. He had the goal of seeing Rita Carnes, for some nutrition advice, and has done so. He has some upcoming life change, with a plan to move into a new house in the near future. He and his are searching for home. He reports that lately his diet has not been great. He has had a more consistent morning routine with his daytime consistent work hours, but reports that he feels somewhat drowsy around the middle of the day. He even has nap from time to time, which has gotten him into a little bit of trouble. He goes to bed around 1030 most nights, wakes up 7to 7:30 in the morning. He estimates that he gets 8 or more hours of sleep around 4 to 5 days a week. He does wonder if his trazodone dose of 100 mg could be contributing to this. He has been on thisdose since February 2019, previously on 50 mg. He is not really sure if the increased somnolence in anyway corresponds to the change in dose, though it does seem to have manifested more recently than the dose change. Also, he notes that there have been so many changes with his work routine etc. that it is really difficult to connect this temporally to one particular life change. Objective: Wt (!) 176 kg (388 lb) Comment: patient reported BMI 54.12 kg/m?? Physical Exam Psychiatric: Mood and Affect: Mood normal. Behavior: Behavior normal. A/P: Venkata was seen today for other. Diagnoses and all orders for this visit: Adult BMI 40.0-44.9 kg/sq m ([facility]): Venkata has had difficulty maintaining healthy habits in the recent past. We provided some support encouragement in this today. Somnolence: This requires some further investigation. I would be concerned about the possibility ofobstructive sleep apnea, but also it is worth exploring the potential for medication effect. However, this should be a fairly in-depth discussion with some contingency plans, considering that it impacts his overall treatment for anxiety. I did offer that he could try reducing his trazodone dose from 100 mg down to 50 mg, to see if this had any positive impact on his somnolence, but he would rather wait until we meet in person to discuss this. Anxiety: See above. Goal Setting: Denies a specific goals Other issues to address next visit: Somnolence, anxiety Carlitos Dow MD 09/02/20 17:44 documented in this encounter Plan of Treatment [...] learn more about your health please visit: https://www.[facility].org/medcenter/Pages/Wellness-Resources/Rcspsuerm-Tcjrab-[facility] e-Center.aspx documented as of this encounter Visit Diagnoses Diagnosis Adult BMI 40.0-44.9 kg/sq m ([facility])- Primary Body Mass Index 40.0-44.9, adult Somnolence Other alteration of consciousness Anxiety Anxiety state, unspecified documented in this encounter Care Teams Hyperion Analyst Relationship Specialty Start Date End Date Rita Kahn DO [address] [place] [phone] PCP - Alternate 02/13/18 03/16/21 Tremaine Shankar MD 1 [facility] [address] [place] [phone] PCP - General 06/25/18 03/29/22 documented as of this encounter
--- OUTSIDE RECORDS SUMMARY | 2024-06-16 15:24 | XMS_ITS | Encounter Summary ---
Author Organization [facility] Address [address] [place] [address] Care Team Providers Care Biodiesel Operations Manager Name Role Phone Rita Kahn DO Unavailable [phone] Tremaine Shankar MD Primary Care Provider + Reason for Visit * Reason Comments Nutrition Counseling Encounter Details Date Type Department Care Team (Late st Contact Info) Description 12/22/2019 Community Health Team [facility] Adult Primary Care - [address] [phone] Rita Martinez, RD 118 [facility] [address] [place] [phone] Social History Tobacco Use Types Packs/Day [...] Progress Notes * Rita Carnes, KEV - 12/22/2019 0801 EDT Community Health Team Registered Dietitian Initial Encounter Date of visit: 12/22/2019 Nutrition education and counseling initial encounter with Venkata Zhao for Morbid obesity. SUBJECTIVE: Venkata states: ?? Reports being close to 400 lbs; needing to go grocery shopping and questions what to shop for tohelp with weight loss ?? History of dieting (no carb diet) at age 20, this was also coupled with walking regularly ?? Has extra concerns about weight r/t covid-19; thinks he may be more succeptible to the virus r/tto excess weight ?? Lives with ; in February 2019; they've been living together for years prior to marriage;adds that he would like to be able to join consult at somepoint ?? 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 Additionally, is on disability Nutrition: ?? Has gotten into the habit of buying prepared foods; reports fresh produce would go bad so stopped buying it ?? Has gotten out of the habit of eating breakfast; regular routine is lunch, dinner, second dinner ?? First shopped for a lot of snacks (after stay at home recommendation); ate all the snacks; reports being smarter about food choices now ?? Has rice maker - making rice daily ?? Has potatoes and onions in the house ?? is now asking for cooney and eggs every day; states that his likes vegetables when they're coated in oil; is not sure (hasn't had the conversation) as to whether or not she is wantingto make changes to her diet along with Venkata ?? Reports needing to make muffins as some fruit has gone bad ?? Reports typically eating after dinner, either a second dinner or ice cream ?? If snacking between meals typically not healthy - chips, cereal, crackers ?? Use to drink a ton of coffee ?? When asked where to do think you should start? ?? Leafy green with every meal ?? Not drink as much soda Dietary Recall B: diet soda, cooney, eggs s: --- L: ramen w/ leftover meat/veg s: --- D: fried chicken cutlets, provolone, lettuce, mayonnaise, bun, 1/2 plate cheetos [states that he had asparagus in the refrigerator but just did not make it last night] s: 1/2 pint ice cream OR Fluids Soda, reports drinking 4-6 cans per day (orange, rootbeer, dr pepper, sprite, fresca, coke) Milk, not regularly Energy drinks, not since driving for [employer] (the last 2 weeks) Coffee/Tea, occasional tea in the morning, but not regularly Diet beverages, Vitamin Water Zero Water, not since he stopped driving for [employer] (the last 2 weeks); previously would take a few bottles with him each night Juice, --- Alcohol 2 weekends per month - 2 tallboys Dietary Supplements Not discussed at today's visit Sleep: ?? pretty good ?? Bed time: 9-10pm ?? Awake: varies ?? Reports since being home from work the last 2 weeks he schedule feels a little off Stress: ?? Reports being hospitalized twice r/t stress/anxiety ?? Ongoing treatment with therapist bi-weekly ?? No formal stress Gastrointestinal: ?? States he can tell when he's not eating well; reports diarrhea if he eats 1/w bag of cheetos (for example) ?? Otherwise reports normal GI; no concerns ?? Reports history of urinary problems when he was drinking a lot of energy drinks; not really drinking energy drinks now because he's not doing [employer] Physical Activity: ?? Walking dog ?? Dancing - going out, going to shows ?? Had [employer] and [employer] memberships; only went once ?? Lives right next to a basketball court; talked with about playing and she's game ?? Bought a Frisbee recently OBJECTIVE: Nutrition Focused Physical Exam: Not completed, [...] discussed at today's visit NUTRITION ASSESSMENT: Venkata Amilcar Pavel arrives at today's visit to initiate medical nutrition therapy for Morbid obesity Nutrition Diagnosis: Overweight/Obesity Etiology: History of imbalanced nutrition, inconsistent meal timing, physical inactivity and Predicted excessive energy intake Signs & Symptoms: Elevated BMI (see above) Intervention: MNT/Education: Engaged patient in conversation related [...] about making change and ambivalence. RD utilized ID techniques including reflective listening, normalization, and eliciting change talk Defined SMART goals and discussed the purpose, role, and benefit related to making dietary, lifestyle, and behavioral changes. Specific, Measurable, Attainable, Realistic, and have a Time-Frame for completing. Discussed non-nutritive sweeteners and role in metabolism, weight loss MNT/Educational Materials Provided: n/a Learning [...] related labs and vitals STAGE OF CHANGE: Contemplation PATIENT IDENTIFIED GOALS: weight loss (no specific lb) PLAN: ?? Reduce intake of soda - increase intake of water - replace 1/2 intake of soda with water (2-3 cans per day) ?? Maintain exercise - daily - dancing, basketball, walking dog ADDITIONAL INFORMATION FOR PROVIDER: follow up nutrition in 3 weeks Patient's Primary Care Site: [facility] [place], [address] [place] [address] Total Time: 75 minutes (60 phone, 15 charting) Referral: none Follow up: Date: Tuesday, January 07, 2020 Time: 1 PM With: Rita Carnes Registered Dietitian Location: PHONE Status: Active Thank you for your referral, Rita Carnes, MS, RD, CD Clinical Dietitian Community Health [...] learn more about your health please visit: https://www.[facility].org/medcenter/Pages/Wellness-Resources/Mordbbfdt-Pxcoku-Io [facility] e-Center.aspx documented as of this encounter Visit Diagnoses Not on filedocumented in this encounter Care Teams Biodiesel Operations Manager Relationship Specialty Start Date End Date Rita Kahn DO [address] [place] [address] PCP - Alternate 02/13/18 03/16/21 Tremaine hSankar MD 1 [facility] 1 [place] [address] PCP - General 06/25/18 03/29/22 documented as of this encounter
--- OUTSIDE RECORDS SUMMARY | 2024-06-16 15:24 | XMS_ITS | Encounter Summary ---
Author Organization [facility] Address [address] [place] [address] Care Team Providers Care Industry Consultant Name Role Phone aKhn, Rita Eder DO Unavailable [phone] Tremaine Shankar MD Primary Care Provider + Encounter Details Date Type Department Care Team (Latest Contact Info) Description 09/21/2020 Travel Social History Tobacco Use Types Packs/Day [...] more about your health please visit: https://[facility].org/medcenter/Pages/Wellness-Resources/Wtwlmymdg-Gztavw-Sc sourc e-Center.aspx documented as of this encounter Visit Diagnoses Not on filedocumented in this encounter Care Teams Industry Consultant Relationship Specialty Start Date End Date Rita Kahn DO [address] [place] [address] PCP - Alternate 02/13/18 03/16/21 Tremaine Shankar MD 1 [facility] Level 1 [place] [address] PCP - General 06/25/18 03/29/22 documented as of this encounter
--- OUTSIDE RECORDS SUMMARY | 2024-06-16 15:24 | XMS_ITS | Encounter Summary ---
Author Organization [facility] Address [address] [place] [address] Care Team Providers Care Grades 1 Thru 5 Teacher Name Role Phone Rita Kahn DO Unavailable [phone] Tremaine Shankar MD Primary Care Provider + Reason for Visit * Reason Comments Nutrition Counseling Encounter Details Date Type Department Care Team (Late st Contact Info) Description 02/27/2020 Community Health Team [facility] Adult Primary Care - [address] [phone] Rita Martinez, RD 118 [facility] [address] [place] [phone] Social History Tobacco Use Types Packs/Day [...] Progress Notes * Rita Carnes, KEV - 02/27/2020 0810 EDT Community Health Team Registered Dietitian Follow up Encounter Date of visit: 02/27/2020 Nutrition education and counseling follow up encounter with Venkata Zhao for Morbid obesity. Goals from previous nutrition visit: 02/18/2020 PATIENT IDENTIFIED GOALS: 38 lb wt loss ?? PLAN: Walk 1 hour per day, 3 [...] Shared Medical Appointment w/ Dr. Carlitos Dow SUBJECTIVE: Venkata states: This morning's weight 280 lbs; down additional 8 lbs in the last 1.5 weeks Nutrition: Reports reverting back to some eating habits (eating out of boredom Diet is mostly, nuts, fruit, vegetables, meat Eating when hunger, stopped Has swapped diet soda for water Use to eat ice cream in bed after dinner; asks when is an appropriate Asks about fiber content of diet; limiting grains and carbohydrate Asks about Would like to have a cheat day Gastrointestinal: Bowels are normal Has not vomited in the morning; thinks that this was actually his Physical Activity: Has been walking in the [place] alone and with Notes heel pain after walking; both heels; RD encourages Venkata to talk to PCP or PT; Venkata adds that he had tight hamstrings as a kid and had worked with a PT on his gait. OBJECTIVE: Nutrition Focused Physical Exam: Not completed, [...] Symptoms: Elevated BMI (see above), per report 22 lb wt loss in the last month. Intervention: MNT/Education: Engaged patient in conversation related [...] recommendations for vegetable and fruit consumption. Discussed mindful eating and intuitive eating practices, including hunger and satiety cues. Discussed the use of Positive Affirmation to help focus attention on self and health goals, to increase positive thinking and self-empowerment. Reviewed some phrases or sayings to repeat to self to help describe desired health outcome, increase motivation, maintain focus on goal, change thought andbehavior patterns, and increase feelings of positivity, energy, and activity working toward health goal. nstead of saying, I will learn how to stop stress eating, say, I am learning how to stop stress eating right now. Here are some examples you may find helpful: I do a healthy amount of exercise regularly My body gets all the nutrients it needs I feel good about myself I am attaining and maintaining my ideal weight I am strong and healthy I am peaceful and calm I'm on the road to feeling calmer. Eating won't resolve this problem. I'm good at tackling a challenge head-on. I can do this. It just takes time. I can wait. My hunger will pass with a little patience. I am going to feel less stressed any minute. I can hang in here. I enjoy being healthy. I feel good inside, and my outer body is just about to catch up with me. ?? Discussed dietary fiber and low carbohydrate diets MNT/Educational Materials Provided: n/a Learning Readiness and Receptivity to Nutrition Education: Receptive to education and demonstrated good understanding Recommendation/Plan: For continued weight loss RD recommends: ?? 3 balanced, [...] STAGE OF CHANGE: Action PATIENT IDENTIFIED GOALS: 30 lb weight loss (goal weight 350 lbs) ?? PLAN: Walk 1 hour per day, 3 days per week Drink water and tea; continue to limit/avoid diet soda, regular soda, sugar sweetened beverages, juice and milk as beverages Listen to hunger cues; practice mindful eating affirmations (develop alternative message than cheat day, such as date night) Balanced and consistent meals; limit sweets Limit eating between meals, unless able to identify physical hunger Limit eating after dinner (630pm) Attend Dr. Chris Dow's Shared Medical Appointment, March 04, 2020 ADDITIONAL INFORMATION FOR PROVIDER: follow up nutrition in 1 week. Venkata reports 22 lb wt loss! Patient's Primary Care Site: Adult [facility] [place], [address] [place] [address] Total Time: 50 minutes (35 telehealth phone, 15 charting) Referral: none Follow up: already scheduled; no changes Status: Active Thank you for your referral, Rita Carnes MS, RD, CD Clinical Dietitian [facility] Team documented in this encounter Plan [...] learn more about your health please visit: https://www.[facility].org/medcenter/Pages/Wellness-Resources/Lddvqszdp-Sitzyt-Mv [facility] e-Center.aspx documented as of this encounter Visit Diagnoses Not on filedocumented in this encounter Care Teams Grades 1 Thru 5 Teacher Relationship Specialty Start Date End Date Rita Kahn DO [address] [place] [address] PCP - Alternate 02/13/18 03/16/21 Tremaine Shankar MD 1 [facility] 1 [place] [address] PCP - General 06/25/18 03/29/22 documented as of this encounter
--- OUTSIDE RECORDS SUMMARY | 2024-06-16 15:24 | XMS_ITS | Encounter Summary ---
Author Organization [facility] Address [address] [place] [address] Care Team Providers Care Education Reviewer Name Role Phone Rita Kahn Eder DO Unavailable [phone] Tremaine Shankar MD Primary Care Provider + Reason for Visit * Reason Onset Date Comments Medications Refill 12/07/2019 trazodone Encounter Details Date Type Department Care Team (Late st Contact Info) Description 12/07/2019 Refill [facility] Adult Primary Care [facility] 1 [place], [place] [phone] Tremaine Shankar MD 1 [facility] Level 1 [place] [address] Medications Refill (trazodone) Social History Tobacco Use Types Packs/Day Years [...] TABLET BY MOUTH AT BEDTIME 30 Tab 12/08/2019 01/08/2020 documented in this encounter Miscellaneous Notes * Telephone Encounter - Amanda Quinonesica - 12/08/2019 1606 EDT Medication(s) Requested: Trazodone Preferred Pharmacy: [address] [facility] Is patient out of medication? Unknown Last Refill Date: 10/07/19 Last Visit Date with Ordering Provider: 09/29/19 Next Non-Acute Visit Date Scheduled with Care Team: No. Marlyn Quinones 12/08/2019 16:17 documented in this encounter Plan of Treatment [...] learn more about your health please visit: https://www.[facility].org/medcenter/Pages/Wellness-Resources/Qbiekbybj-Pcqdhn-Rb sourc e-Center.aspx documented as of this encounter Visit Diagnoses Diagnosis Anxiety Anxiety state, unspecified Psychophysiological insomnia Persistent disorder of initiating or maintaining sleep documented in this encounter Discontinued Medications Medication Sig Discontinue Reason Start Date End Da te traZODone (DESYREL) 100 mg tabletIndications:Anxiet y,Psychophysiological insomnia TAKE ONE TABLET BY MOUTH AT BEDTIME 10/07/2019 12/08/2019 documented as of this encounter Care Teams Education Reviewer Relationship Specialty Start Date End Date Rita Kahn DO [address] [place] [address] PCP - Alternate 02/13/18 03/16/21 Tremaine Shankar MD 1 [facility] 1 [place] [address] PCP - General 06/25/18 03/29/22 documented as of this encounter
--- OUTSIDE RECORDS SUMMARY | 2024-06-16 15:24 | XMS_ITS | Encounter Summary ---
Author Organization [facility] Address [address] [place] [address] Care Team Providers Care Pan Greaser Name Role Phone Criss Rita Eder DO Unavailable [phone] Tremaine Shankar MD Primary Care Provider + Reason for Visit * Reason Onset Date Comments Appointment Related 09/06/2020 Encounter Details Date Type Department Care Team (Late st Contact Info) Description 09/06/2020 Telephone [facility] Adult Primary Care [facility] 1 [place], [place] [phone] Tremaine Shankar MD 1 [facility] 1 [place] [address] Appointment Related Social History Tobacco Use Types [...] encounter Miscellaneous Notes * Telephone Encounter - Argelia Mir - 09/06/2020 1526 EST Please schedule a televideo visit with Dr Dow for medication management. He is a patient in our shared medical group and requested a one on one OV with him. documented in this encounter Plan of Treatment [...] learn more about your health please visit: https://www.[facility].org/medcenter/Pages/Wellness-Resources/Ywsbloeny-Gntpsj-Sc [facility] e-Center.aspx documented as of this encounter Visit Diagnoses Not on filedocumented in this encounter Care Teams Pan Greaser Relationship Specialty Start Date End Date Rita Kahn DO [address] [place] [address] PCP - Alternate 02/13/18 03/16/21 Tremaine Shankar MD 1 [facility] 1 [place] [address] PCP - General 06/25/18 03/29/22 documented as of this encounter
--- OUTSIDE RECORDS SUMMARY | 2024-06-16 15:24 | XMS_ITS | Encounter Summary ---
Author Organization [facility] Address [address] [place] [address] Care Team Providers Care Cylinder Worker Name Role Phone Criss Rita Eder DO Unavailable [phone] Tremaine Shankar MD Primary Care Provider + Reason for Visit * Reason Comments Telemedicine Video Visit Encounter Details Date Type Department Care Team (Late st Contact Info) Description 03/04/2020 14:00 EDT Telemedicine [facility] Adult Primary Care [facility] 1 [place], [place] [id number] Carlitos Dow MD 1 [facility] Level 1 [place] [address] Morbid obesity (HCC-CMS) (Primary Dx) Social History Tobacco Use Types [...] of this encounter Progress Notes * Carlitos Dow MD - 03/04/2020 1400 EDT The concept of ???Telemedicine?? has been described [...] Argelia Mir * Carlitos Dow MD - 03/04/2020 1400 EDT Shared Medical Appointment - Video Visit HPI: Venkata is here for a shared medical appointment via televideo. This is Venkata's first shared medical appointment. He decided to join this group because he has been working with a adjunct english instructor, and is interested in developing healthier habits. He also recently reached his maximum weight of 400 pounds in the recent past. He actually has lost 20 pounds since hitting that point, by reducing carbohydrate intake and reducing sugar intake. He has been eating more vegetables, hominis, fresh fruits. He goes for walks in [facility] 3 days/week for 2 hours or more. 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 Otherwise, feels well, no complaints Current Outpatient Medications: ARIPiprazole (ABILIFY) 5 mg tablet fluocinonide (LIDEX) 0.05 % ointment LORazepam (ATIVAN) 1 mg tablet melatonin 3 mg tablet therapeutic hand-body (EUCERIN ORIGINAL) lotion traZODone (DESYREL) 100 mg tablet No current facility-administered medications for this visit. Objective: There were no vitals taken for this visit. Physical Exam Constitutional: He appears well-nourished. No distress. Psychiatric: He has a normal mood and affect. His behavior is normal. A/P: Diagnoses and all orders for this visit: Morbid obesity ([facility]-CMS): Venkata has made some serious progress in advance of his first group meeting. I am hopeful that he is able to sustain and perhaps even take this further. He establish some goals that he would like to attain between on the next visit. Goal Setting: -Eat 3 meals a day more consistently, rather than skipping breakfast and/or lunch, and binging in the evening -Reduce frequency of eating after 6:30 PM Carlitos Dow MD 03/04/20 17:12 documented in this encounter Plan of Treatment [...] learn more about your health please visit: https://[facility].org/medcenter/Pages/Wellness-Resources/Rqlluvgrk-Smnaml-Nc sourc e-Center.aspx documented as of this encounter Visit Diagnoses Diagnosis Morbid obesity ([facility]-CMS)- Primary Morbid obesity documented in this encounter Care Teams Cylinder Worker Relationship Specialty Start Date End Date Rita Kahn DO [address] [place] [address] PCP - Alternate 02/13/18 03/16/21 Tremaine Shankar MD 1 [facility] 1 [place] [address] PCP - General 06/25/18 03/29/22 documented as of this encounter
--- OUTSIDE RECORDS SUMMARY | 2024-06-16 15:24 | XMS_ITS | Encounter Summary ---
Author Organization [facility] Address [address] [place] [address] Care Team Providers Care Gold Layer Name Role Phone Rita Kahn DO Unavailable [phone] Tremaine Shankar MD Primary Care Provider + Reason for Visit * Reason Comments Nutrition Counseling Encounter Details Date Type Department Care Team (Late st Contact Info) Description 03/24/2020 Community Health Team [facility] Adult Primary Care - [address] [phone] Rita Martinez, RD 118 [facility] [address] [place] [phone] Social History Tobacco Use Types Packs/Day [...] Progress Notes * Rita Carnes, KEV - 03/24/2020 0951 EDT Community Health Team Registered Dietitian Encounter Date of encounter: 03/24/2020 Venkata Zhao was not able to make today's visit w/ RD. This is the 3rd consecutive missed appointment. RD called though unable to leave a message (voicemail full). RD to contact via [employer] regarding continuation of nutrition care. Adult Primary Care [address] Total Time: 5 mintues Referral: none Follow up: none Status: Active Thank you for your referral, [...] learn more about your health please visit: https://[facility].org/medcenter/Pages/Wellness-Resources/Gnukdpbqh-Qezlod-Rw sourc e-Center.aspx documented as of this encounter Visit Diagnoses Not on filedocumented in this encounter Care Teams Gold Layer Relationship Specialty Start Date End Date Rita Kahn DO [address] [place] [phone] PCP - Alternate 02/13/18 03/16/21 Tremaine Shankar MD 1 [facility] 1 [place] [address] PCP - General 06/25/18 03/29/22 documented as of this encounter
--- OUTSIDE RECORDS SUMMARY | 2024-06-16 15:24 | XMS_ITS | Encounter Summary ---
Author Organization [facility] Address [address] [place] [address] Care Team Providers Care Brazing Furnace Feeder Name Role Phone Rita Kahn DO Unavailable [phone] Tremaine Shankar MD Primary Care Provider + Encounter Details Date Type Department Care Team (Late st Contact Info) Description 04/07/2019 Phlebotomy Only [facility] - [address] [address] Security Agent, Outpatient Class 3 severe obesity with body mass index (BMI) of 50.0 to 59.9 in adult, unspecified obesity type, unspecified whether serious comorbidity present ([facility]); Elevated random blood glucose level Social History Tobacco Use Types Packs/Day Years [...] please visit: https://www.[facility].org/medcenter/Pages/Wellness-Resources/Wgclbimcv-Qipata-Vq sourc e-Center.aspx documented as of this encounter Procedures Procedure Name Priority Date/Time Associated Diagnosis Comments HEMOGLOBIN A1C Routine 04/07/2019 10:02 EDT Class 3 severe obesity with body mass index (BMI) of 50.0 to 59.9 in adult, unspecified obesity type, unspecified whether serious comorbidity present ([facility]) Elevated random blood glucose level LIPID PROFILE (INCLUDES CHOLESTEROL, TRIGLYCERIDES, HDL, LDL) Routine 04/07/2019 10:02 EDT Class 3 severe obesity with body mass index (BMI) of 50.0 to 59.9 in adult, unspecified obesity type, unspecified whether serious comorbidity present ([facility]) documented in this encounter Results * HEMOGLOBIN A1C (04/07/2019 10:02 EDT) Hemoglobin A1C 5.5 % 04/07/2019 14:17 EDT [facility] Comment: Reference Range: <5.7% Normal 5.7-6.4% Prediabetes =>6.5% Diagnostic for diabetes (if confirmed) Goals for glycemic control in diabetes ADA 2017 For non adults with diabetes: ?? Target <7.0% For children and adolescents with type 1 diabetes: ?? Target <7.5% More or less stringent targets may be appropriate for individual patients. Est Avg Glucose 111 mg/dl 9 14:17 T [facility] Comment: eAG represents the A1c result expressed as average glucose in mg/dl. Blood specimen (specimen) BLOOD SPECIMEN / Unknown 04/07/2019 10:02 EDT 04/07/2019 11:44 EDT Tremaine Shankar MD CHEMISTRY & BLOO D GAS ORDERABLES Performing Organization Address [facility] Co de Phone Number [facility] [address] [place] [address] * LIPID PROFILE (INCLUDES CHOLESTEROL, TRIGLYCERIDES, HDL, LDL) (04/07/2019 10:02 EDT) Cholesterol 120 mg/dl 04/07/2019 12:19 [facility] Comment: Desirable:<200 Borderline High:200-239 High:>fx=521 Triglycerides 70 mg/dl 04/07/2019 12:19 [facility] Comment: Normal:<150 Borderline High:150-199 High:200-499 Very High:>an=086 HDL 51 mg/dl 04/07/2019 12:19 [facility] Comment: Low:<40 Normal:40-60 Desirable: >60 LDL, Calculated 55 mg/dl 9 12:19 [facility] Comment: Optimal:<100 Near Optimal:100-129 Borderline High:130-159 High:160-189 Very High:>fv=953 Chol/HDL Ratio 2.4 04/07/2019 12:19 [facility] Fasting? YES 04/07/2019 9:59 [facility] Non HDL Cholesterol 69 mg/dl 04/07/2019 12:19 [facility] Comment: Desirable:<130 Borderline:130-159 High: 160-189 Very High: >gt=979 Blood specimen (specimen) BLOOD SPECIMEN / Unknown 04/07/2019 10:02 EDT 04/07/2019 11:44 EDT Tremaine Shankar MD CHEMISTRY & BLOO D GAS ORDERABLES Performing Organization Address [facility] Co de Phone Number [facility] [address] [place] [address] documented in this encounter Visit Diagnoses Diagnosis Class 3 severe obesity with body mass index (BMI) of 50.0 to 59.9 in adult, unspecified obesity type, unspecified whether serious comorbidity present ([facility]) Elevated random blood glucose level Other abnormal glucose documented in this encounter Care Teams Brazing Furnace Feeder Relationship Specialty Start Date End Date Rita Kahn DO [address] [place] [phone] PCP - Alternate 02/13/18 03/16/21 Tremaine Shankar MD 1 [facility] 1 [place] [phone] PCP - General 06/25/18 03/29/22 documented as of this encounter
--- OUTSIDE RECORDS SUMMARY | 2024-06-16 15:24 | XMS_ITS | Encounter Summary ---
Author Organization [facility] Address [address] [place] [address] Care Team Providers Care Asphalt Machine Operator Name Role Phone Rita Kahn DO Unavailable [phone] Tremaine Shankar MD Primary Care Provider + Reason for Visit * Reason Comments Nutrition Counseling Encounter Details Date Type Department Care Team (Late st Contact Info) Description 01/21/2020 Community Health Team [facility] Adult Primary Care - [address] [phone] Rita Martinez, RD 118 [facility] [address] [place] [phone] Social History Tobacco Use Types Packs/Day [...] this encounter Progress Notes * Rita Carnes, RD - 01/21/2020 1203 EDT Community Health Team Registered Dietitian Follow up Encounter Date of visit: 01/21/2020 Nutrition education and counseling follow up encounter with Venkata Zhao for Morbid obesity. Goals from previous nutrition visit: 01/07/2020 PATIENT IDENTIFIED GOALS: healthy weight loss ?? PLAN: ?? Follow routine schedule: grocery delivery (work), breakfast, walk dog, lunch, working on house/organization/ebay ?? Look into [employer] Keara and Open-Plug; 3pm workout a few times per week ?? Hydration SUBJECTIVE: Venkata states: ?? Reports talk to a lot about dietary and lifestyle changes and reflects this morning that hewill have to start moving forward with the goals on his own ?? States that he has always been an asker and doer not an initiator. Nutrition: ?? Today made separate meals for himself and his ; this was wasn't based on health, but a reflection nonetheless to think about making something different for himself ?? Wrote down some reflections over the last few weeks ?? Healthy: eating a lot of avocados ?? Not so healthy: too many chips, too many portions of dinner Alcohol Not drinking during the week; a beer or two on the weekends Physical Activity: ?? Has been keeping the conversation active with his regarding exercise ?? Did the Addie 7 minutes stretch exercise; has been thinking about how to go beyond this ?? Joycetendo Switch Just Dance - plans to download and start playing/dancing OBJECTIVE: Nutrition Focused Physical Exam: Not completed, [...] Elevated BMI (see above), no updated weight Intervention: MNT/Education: Engaged patient in conversation related to positive behavior change, self-management, goal setting and action planning using motivational interviewing and active listening. ?? Reviewed medical history, labs, and medications/supplements. ?? Reviewed dietary intake and physical activity. ?? Discussed health goals, including motivators and barriers. Discussed motivation for making healthy changes; explored beliefs about making change and ambivalence. RD utilized IA techniques including reflective listening, normalization, and eliciting change talk ?? Brainstormed meal modifications to improve nutrient balance per MyPlate education and recommendations, including reduced starchy, refined carbohydrate and added sugar, and increased lean protein, healthy fat, and dietary fiber (non-starchy vegetables and fruit). Defined SMART goals and discussed the purpose, role, and benefit related to making dietary, lifestyle, and behavioral changes. Specific, Measurable, Attainable, Realistic, and have a Time-Frame for completing. MNT/Educational Materials Provided: n/a Learning Readiness and [...] OF CHANGE: Action PATIENT IDENTIFIED GOALS: weight loss (no specific lb) PLAN: ?? Download Just Dance for Nintendo Switch ?? Continue Blu Homese Keara workouts ?? Stick to one serving for meals; not going beyond 1 plate; adhering to MyPlate ADDITIONAL INFORMATION FOR PROVIDER: follow up in 2 weeks Patient's Primary Care Site: Adult [facility] [place], [address] [place] [address] Total Time: 50 minutes (35 phone, 15 charting) Referral: none Follow up: Date: Tuesday, February 04, 2020 Time: 8 AM With: Anuel Ac Dietitimartine Location: PHONE Status: Active Thank you for your referral, Rita Carnes, MS, RD, CD Clinical Dietitian Team documented in this encounter Plan of [...] about your health please visit: https://www.[facility].org/medcenter/Pages/Wellness-Resources/Ezrklyzuy-Dfwaks-Er [facility] e-Center.aspx documented as of this encounter Visit Diagnoses Not on filedocumented in this encounter Care Teams Asphalt Machine Operator Relationship Specialty Start Date End Date Rita Kahn DO [address] [place] [phone] PCP - Alternate 02/13/18 03/16/21 Tremaine Shankar MD 1 [facility] 1 [place] [phone] PCP - General 06/25/18 03/29/22 documented as of this encounter
--- OUTSIDE RECORDS SUMMARY | 2024-06-16 15:24 | XMS_ITS | Encounter Summary ---
Author Organization [facility] Address [address] [place] [address] Care Team Providers Care Mixed Crop And Livestock Farm Worker Name Role Phone Rita Khan DO Unavailable [phone] Tremaine Shankar MD Primary Care Provider + Reason for Visit * Reason Comments Nutrition Counseling Encounter Details Date Type Department Care Team (Late st Contact Info) Description 03/12/2020 Community Health Team [facility] Adult Primary Care - [address] [phone] Rita Martinez, RD 118 [facility] [address] [place] [phone] Social History Tobacco Use Types Packs/Day [...] Progress Notes * Rita Carnes, RD - 03/12/2020 1140 EDT Community Health Team Registered Dietitian Care Coordination 03/12/2020 Venkata Zhao answered today's nutrition follow up phone call and states he is not able to keep today's appointment due to work. Asks if he can reschedule future nutrition visits to nolan knows this will be his day off. Rescheduled as below: Adult Primary Care [place], [address] [place] [address] Total Time: 5 minutes Referral: none Follow up: Tuesday March 17, 2020 at 8am w/ Rita Carnes RD, PHONE. We will be meeting weekly on at 8am for the next month and then reassess. Thank you! Status: Active Thank you for your referral, Rita Carnes, MS, RD, CD Clinical Dietitian [facility] Health Team documented in this encounter Plan [...] more about your health please visit: https://www.[facility].org/medcenter/Pages/Wellness-Resources/Qjcjyecni-Mottfh-Sg [facility] e-Center.aspx documented as of this encounter Visit Diagnoses Not on filedocumented in this encounter Care Teams Mixed Crop And Livestock Farm Worker Relationship Specialty Start Date End Date Rita Kahn DO [address] [place] [phone] PCP - Alternate 02/13/18 03/16/21 Tremaine Shankar MD 1 [facility] 1 [place] [phone] PCP - General 06/25/18 03/29/22 documented as of this encounter
--- OUTSIDE RECORDS SUMMARY | 2024-06-16 15:24 | XMS_ITS | Encounter Summary ---
Author Organization [facility] Address [address] [place] [address] Care Team Providers Care Colorist Formulator Name Role Phone Rita Kahn Eder DO Unavailable [phone] Tremaine Shankar MD Primary Care Provider + Reason for Visit * Reason Onset Date Comments Medications Refill 04/01/2020 trazodone / l orazepam Encounter Details Date Type Department Care Team (Late st Contact Info) Description 04/01/2020 Refill [facility] Adult Primary Care [facility] 1 [place], [place] [phone] Tremaine Shankar MD 1 [facility] 1 [place] [address] Medications Refill (trazodone / lorazepam) Social History Tobacco Use Types Packs/Day Years [...] Dispensed Refills Start Date End Da te LORazepam (ATIVAN) 1 mg tablet Take 0.5-1 Tabs by mouth 3 times daily as needed for Anxiety. Daily Max: 3 mg 15 Tab 04/01/2020 10/04/2020 traZODone (DESYREL) 100 mg tabletIndications:Anxiety, Psychophysiological insomnia Take 1 Tab by mouth at bedtime. 90 Tab 3 04/01/2020 10/04/2020 documented in this encounter Miscellaneous Notes * Telephone Encounter - Carlitos Dow MD - 04/01/2020 1007 EDT Actually we can just address this at his visit. Loida or Chelsy, can this just be pended in the visit? Thanks. * Telephone Encounter - Carlitos Dow MD - 04/01/2020 1007 EDT If Raad is here, should go to him. * Telephone Encounter - Marlyn Quinones - 04/01/2020 0843 EDT Medication(s) Requested: Trazodone / Lorazepam Preferred Pharmacy: [facility] Is patient out of medication? Yes Last Refill Date: 01/08/20 / 09/29/19 Last Visit Date with Ordering Provider: 03/04/20 Next Non-Acute Visit Date Scheduled with Care Team: Yes. 04/01/20 Marlyn Quinones 04/01/2020 8:43 documented in this encounter Plan of Treatment [...] learn more about your health please visit: https://www.[facility].org/medcenter/Pages/Wellness-Resources/Ufcztmzbj-Oljqji-Da sourc e-Center.aspx documented as of this encounter Visit Diagnoses Diagnosis Anxiety Anxiety state, unspecified Psychophysiological insomnia Persistent disorder of initiating or maintaining sleep documented in this encounter Discontinued Medications Medication Sig Discontinue Reason Start Date End Da te traZODone (DESYREL) 100 mg tabletIndications:Anxiet y,Psychophysiological insomnia TAKE ONE TABLET BY MOUTH AT BEDTIME Reorder 01/08/2020 04/01/2020 LORazepam (ATIVAN) 1 mg tablet Take 0.5-1 Tabs by mouth 3 times daily as needed for Anxiety. Daily Max: 3 mg Reorder 09/29/2019 04/01/2020 documented as of this encounter Care Teams Colorist Formulator Relationship Specialty Start Date End Date Rita Kahn DO [address] [place] [phone] PCP - Alternate 02/13/18 03/16/21 Tremaine Shankar MD 1 [facility] 1 [place] [phone] PCP - General 06/25/18 03/29/22 documented as of this encounter
--- OUTSIDE RECORDS SUMMARY | 2024-06-16 15:24 | XMS_ITS | Encounter Summary ---
Author Organization [facility] Address [address] [place] [address] Care Team Providers Care Price Lister Name Role Phone Rita Kahn DO Unavailable Tremaine Shankar MD Primary Care Provider + Reason for Visit * Reason Comments Nutrition Counseling Encounter Details Date Type Department Care Team (Late st Contact Info) Description 03/17/2020 Community Health Team [facility] Adult Primary Care - [address] [phone] Rita Martinez, RD 118 [facility] [address] [place] [phone] Social History Tobacco Use Types Packs/Day [...] Progress Notes * Rita Carnes, RD - 03/17/2020 1148 EDT Community Health Team Registered Dietitian Encounter Date of encounter: 03/17/2020 Venkata Zhao was not able to make today's visit w/ KEV. RD called though unable to leave a message as the mailbox is full. Venkata is scheduled for weekly follow ups; I will send a [employer] message and we will follow up next week Sunday. Adult Primary Care [address] Total Time: 5 mintues Referral: none Follow up: missed today's nutrition visit; scheduled for next Tuesday March 24, 2020 at 8am w/ Rita Carnes RD, via PHONE consult. Status: Active Thank you for your referral, [...] health please visit: https://www.[facility].org/medcenter/Pages/Wellness-Resources/Idbjwbanr-Xuaxpz-La sourc e-Center.aspx documented as of this encounter Visit Diagnoses Not on filedocumented in this encounter Care Teams Price Lister Relationship Specialty Start Date End Date Rita Kahn DO [address] [place] [phone] PCP - Alternate 02/13/18 03/16/21 Tremaine Shankar MD [address] [place] [address] 1 [place] [phone] PCP - General 10/2/18 7/6/22 documented as of this encounter
--- OUTSIDE RECORDS SUMMARY | 2024-06-16 15:24 | XMS_ITS | Encounter Summary ---
Author Organization [facility] Address [address] [place] [address] Care Team Providers Care Monotype Operator Name Role Phone KahnThaisRita Eder DO Unavailable [phone] Tremaine Shankar MD Primary Care Provider + Reason for Visit * Reason Onset Date Comments Medications Refill 04/07/2019 Encounter Details Date Type Department Care Team (Late st Contact Info) Description 04/07/2019 Refill [facility] Primary Care [facility] [address] [phone] Chirag Simental MD [facility] [address] [phone] Medications Refill Social History Tobacco Use [...] End Da te traZODone (DESYREL) 100 mg tabletIndications:Anxiety, Psychophysiological insomnia Take 1 Tab by mouth at bedtime. 30 Tab 3 04/10/2019 09/11/2019 documented in this encounter Miscellaneous Notes * Telephone Encounter - Rita Estevez - 04/10/2019 0807 EDT Medication(s) Requested: traZODone Preferred Pharmacy: [facility] Is patient out of medication? Unknown Last Refill Date: 03.05.19 Last Visit Date with Ordering Provider: 04.09.19 Next Non-Acute Visit Date Scheduled with Care Team: Rita Estevez 04/10/2019 8:08 documented in this encounter Plan of Treatment [...] about your health please visit: https://www.[facility].org/medcenter/Pages/Wellness-Resources/Bsrbcsrxp-Tifsyr-Qj sourc e-Center.aspx documented as of this encounter Visit Diagnoses Diagnosis Anxiety Anxiety state, unspecified Psychophysiological insomnia Persistent disorder of initiating or maintaining sleep documented in this encounter Discontinued Medications Medication Sig Discontinue Reason Start Date End Da te traZODone (DESYREL) 100 mg tabletIndications:Anxiety ,Psychophysiological insomnia Take 1.5 Tabs by mouth at bedtime. Reorder 03/05/2019 04/07/2019 documented as of this encounter Care Teams Monotype Operator Relationship Specialty Start Date End Date Rita Kahn DO [address] [place] [phone] PCP - Alternate 02/13/18 03/16/21 Tremaine Shankar MD 1 [facility] Level 1 [place] [phone] PCP - General 06/25/18 03/29/22 documented as of this encounter
--- OUTSIDE RECORDS SUMMARY | 2024-06-16 15:24 | XMS_ITS | Encounter Summary ---
Author Organization [facility] Address [address] [place] [address] Care Team Providers Care Manager Track Name Role Phone KahnRita soriano DO Unavailable [phone] Tremaine Shankar MD Primary Care Provider + Encounter Details Date Type Department Care Team (Latest Contact Info) Description 02/22/2019 13:05 EDT - 02/22/2019 14:13 EDT Hospital Encounter [facility] [address] [address] Unknown, Provider, Patient left without being seen (Primary Dx) Discharge Disposition: Home or Self Care Social History Tobacco Use Types Packs/Day Years [...] No 04/22/2018 documented as of this encounter Medications at Time of Discharge Medication Sig Dispensed Refills Start Date End Date ARIPiprazole (ABILIFY) 5 mg tabletIndications:Anxi ety Take 1 tablet by mouth daily. 30 tablet 01/30/2019 02/27/2019 fluocinonide (LIDEX) 0.05 % ointment Apply topically [...] as needed. 10/04/2020 traZODone (DESYREL) 100 mg tabletIndications:Anxi ety,Psychophysiologica l insomnia take 1 and 1/2 tablets by mouth at bedtime 45 tablet 01/14/2019 03/05/2019 documented as of this encounter Discharge Disposition Disposition Code Departure Means Destination Comment s Home or Self Care Walk-out lwbs prior to triage documented in this encounter Plan of Treatment [...] learn more about your health please visit: https://www.[facility].org/medcenter/Pages/Wellness-Resources/Uycysthkd-Ivpkjs-Qt [facility] e-Center.aspx documented as of this encounter Visit Diagnoses Diagnosis Patient left without being seen- Primary Surgical or other procedure not carried out because of patient's decision documented in this encounter Care Teams Manager Track Relationship Specialty Start Date End Date Rita Kahn DO [address] [place] [phone] PCP - Alternate 02/13/18 03/16/21 Tremaine Shankar MD 1 [facility] 1 [place] [address] PCP - General 06/25/18 03/29/22 documented as of this encounter
--- OUTSIDE RECORDS SUMMARY | 2024-06-16 15:24 | XMS_ITS | Encounter Summary ---
Author Organization [facility] Address [address] [place] [address] Care Team Providers Care Insurance Marketing Rep Name Role Phone Criss Rita Eder DO Unavailable [phone] Tremaine Shankar MD Primary Care Provider + Reason for Visit * Reason Onset Date Comments Coordination Of Care 09/21/2020 Encounter Details Date Type Department Care Team (Late st Contact Info) Description 09/21/2020 Telephone [facility] Adult Primary [facility] - [place] 1 [place], [place] [phone] Tremaine Shankar MD 1 [facility] 1 [place] [phone] Coordination Of Care Social History Tobacco Use Types Packs/Day [...] encounter Miscellaneous Notes * Telephone Encounter - Adriane Champagne RN - 09/21/2020 1121 EST Called [facility] and reviewed with Antolin, clinician who is currently at bedside with patient in ED. Confirmed patient is in ED at this time and will be assessed by Psychaitry. 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 He states that he say patient for worsening fe, and is requesting an urgent appointment with or covering provider. KP is asking for possible change in medication or addition of medication for sleep, which he feels may curb fe and feels that patient is approaching risk of hospital admission. documented in this encounter Plan of Treatment [...] learn more about your health please visit: https://www.[facility].org/medcenter/Pages/Wellness-Resources/Zpbjdwuwi-Shmcnb-Dh sourc e-Center.aspx documented as of this encounter Visit Diagnoses Not on filedocumented in this encounter Care Teams Insurance Marketing Rep Relationship Specialty Start Date End Date Rita Kahn DO [address] [place] [phone] PCP - Alternate 02/13/18 03/16/21 Tremaine Shankar MD 1 [facility] 1 [place] [phone] PCP - General 06/25/18 03/29/22 documented as of this encounter
--- OUTSIDE RECORDS SUMMARY | 2024-06-16 15:24 | XMS_ITS | Encounter Summary ---
Author Organization [facility] Address [address] [place] [address] Care Team Providers Care Patient Financial Counselor Name Role Phone Criss Rita Eder DO Unavailable [phone] Tremaine Shankar MD Primary Care Provider + Dallas Canas MD PhD Unavailable Unavailabl e Reason for Visit * Reason Onset Date Comments Medications Refill 07/16/2019 Encounter Details Date Type Department Care Team (Late st Contact Info) Description 07/16/2019 Refill [facility] Adult Primary Care [facility] [address] [place], [place] [id number] Chirag Simental MD MPH 1 [facility] 1 [place] [address] Medications Refill Social History Tobacco [...] tabletIndications:Anxiety Take 1 Tab by mouth daily. 90 Tab 3 07/16/2019 06/03/2020 documented in this encounter Miscellaneous Notes * Telephone Encounter - Ezra Quezada MD - 07/16/2019 1103 EDT Med refilled * Telephone Encounter - Huma Saucedo - 07/16/2019 1009 EDT Medication(s) Requested: Aripiprazole Preferred Pharmacy: [place] Is patient out of medication? Unknown Last Refill Date: 03.03.19 Last Visit Date with Ordering Provider: Next Non-Acute Visit Date Scheduled with Care Team: No. Huma Saucedo 07/16/2019 10:10 documented in this encounter Plan of Treatment [...] your health please visit: https://www.[facility].org/medcenter/Pages/Wellness-Resources/Vvhujrbdm-Fevxnh-Kt [facility] e-Center.aspx documented as of this encounter Visit Diagnoses Diagnosis Anxiety Anxiety state, unspecified documented in this encounter Discontinued Medications Medication Sig Discontinue Reason Start Date End Da te ARIPiprazole (ABILIFY) 5 mg tabletIndications:Anxiety Take 1 Tab by mouth daily. Reorder 03/03/2019 07/16/2019 documented as of this encounter Care Teams Patient Financial Counselor Relationship Specialty Start Date End Date Rita Kahn DO [address] [place] [address] PCP - Alternate 02/13/18 03/16/21 Tremaine Shankar MD [address] [address] PCP - General 06/25/18 03/29/22 Dallas Canas MD PhD [address] [address] PCP - Alternate 03/17/21 03/29/22 documented as of this encounter
--- OUTSIDE RECORDS SUMMARY | 2024-06-16 15:24 | XMS_ITS | Encounter Summary ---
Author Organization [facility] Address [address] [place] [address] Care Team Providers Care Instrument Fitter Name Role Phone KahnRita soriano DO Unavailable [phone] Tremaine Shankar MD Primary Care Provider + Reason for Referral * Consult (Routine) - Specialty Report Received Specialty Diagnoses / Procedures Referred By [facility] t Referred To Contact Multidisciplinary Diagnoses Morbid obesity (HCC-CMS) Jaky Childers MD [address] [place] [address] Level 1 [place] [address] [facility] Community Health Team [address] [facility], [address] [place] [address] Referral ID Status Reason Start Date Expiration Date Visits Requested Visits Authorized [id number] Specialty Report Received Specialty Services Required 09/29/2019 1 1 Question Answer What areas would you like the CHT to focus on? Nutrition Help What goals would you like the patient to meet? Patient would like help with nutrition, he would also like to bring along his Patient's Weight (kg) (1 lb = 0.4536 kg): 178.2 Comments As we discussed in your visit today, someone will be contacting you from the Community Health Team to schedule an appointment with you. If you do not hear from the CHT within a week please call the Community Health Team at [phone]. Reason for Visit * Reason Comments Medication Management with refills. Encounter Details Date Type Department Care Team (Late st Contact Info) Description 09/29/2019 10:00 EST Office Visit [facility] Adult Primary Care - [address] [address] Rita Kahn, [address] [place] [address] Need for influenza vaccination (Primary Dx); Morbid obesity ([facility]) Social History Tobacco Use Types Packs/Day Years [...] Sign Reading Time Taken Comments Blood Pressure 110/70 09/29/2019 1010 EST Pulse 80 09/29/2019 1010 EST Temperature 36.3 ??C (97.3 ??F) 09/29/2019 1010 EST Respiratory Rate 20 09/29/2019 1010 EST Oxygen Saturation - - Inhaled Oxygen Concentration - - Weight 178.2 kg (392 lb 12.8 oz) 09/29/2019 1010 EST Height - - Body Mass Index 54.78 03/07/2019 1335 EDT documented in this encounter [...] Anxiety. Daily Max: 3 mg 15 Tab 09/29/2019 04/01/2020 documented in this encounter Progress Notes * Rita Kahn, - 09/29/2019 1000 EST Subjective: Patient ID: Venkata Zhao is an 34 y.o. male. Chief Complaint Patient presents with ??? Medication Management with refills. AMY Hastings is presenting to clinic today to discuss medications. He is currently taking Abilify 5 mg daily, trazadone 100 mg nightly, and occasional PRN ativan. He states that he has been doing very wellon his medications. He has been going though some stress- his in-laws are moving out of their home,and he has been helping them with that. He is still seeing a counselor about every other week and it has been very helpful. He denies any delusions, paranoia, disturbances of sleep. He denies any thoughts of self-harm, suicide, harming others. He denies any change in appetite. Denies change in sleep. He has gained ~10lbs since February. He states that he has not been as physically active. He plans on checking out the [employer] today and is hopeful to get a membership. Patient Active Problem List Diagnosis ??? Allergic rhinitis ??? Scalp cyst ??? NIA (obstructive sleep apnea) ??? Morbid obesity (HCC-CMS) ??? Psychotic episode (HCC-CMS) ??? Eczema ??? Primary insomnia ??? Anxiety ??? Acute left ankle pain ??? Encounter for long-term (current) use of other medications Outpatient Medications Marked as Taking for the 09/29/19 encounter (Office Visit) with Rita Kahn, DO Medication Sig Dispense Refill ??? ARIPiprazole (ABILIFY) 5 mg tablet Take 1 Tab by mouth daily. 90 Tab 3 ??? [DISCONTINUED] LORazepam (ATIVAN) 0.5 mg tablet Take 2 Tabs by mouth 3 times daily. Daily Max: 3 mg 6 Tab 0 ??? LORazepam (ATIVAN) 1 mg tablet Take 0.5-1 Tabs by mouth 3 times daily as needed for Anxiety. Daily Max: 3 mg 15 Tab 0 ??? [DISCONTINUED] LORazepam (ATIVAN) 1 mg tablet Take 1 Tab by mouth 2 times daily. Daily Max: 2 mg 15 Tab 0 ??? [DISCONTINUED] LORazepam (ATIVAN) 1 mg tablet Take 1 Tab by mouth every 6 hours. Daily Max: 4 mg 15 Tab 0 ??? therapeutic hand-body (EUCERIN ORIGINAL) lotion Apply topically as needed. ??? traZODone (DESYREL) 100 mg tablet Take 1 Tab by mouth at bedtime. 30 Tab 0 Review of Systems Constitutional: Negative for chills and fever. Respiratory: Negative. Cardiovascular: Negative. Neurological: Negative. Psychiatric/Behavioral: Negative. - See HPI Objective: BP 110/70 Pulse 80 Temp 36.3 ??C (97.3 ??F) (Tympanic) Resp 20 Wt (!) 178.2 kg (392 lb 12.8oz) BMI 54.78 kg/m?? Physical Exam Constitutional: He is oriented to person, place, and time. He appears well- developed and well-nourished. Morbidly obese HENT: Mouth/Throat: Mucous membranes are moist. Dentition is normal. Eyes: Pupils are equal, round, and reactive to light. Conjunctivae are normal. Neck: Normal range of motion. Neck supple. Cardiovascular: Normal rate and regular rhythm. Pulmonary/Chest: Effort normal and breath sounds normal. Abdominal: Soft. Neurological: He is alert and oriented to person, place, and time. Skin: Skin is warm and dry. Psychiatric: He has a normal mood and affect. Assessment / Plan: Mr. Zhao??PMHx of OAS, alcohol and canabis use??unspecified psychotic disorder, unspecified anxiety disorder and 2 previous psychiatric??addmissions??presenting to clinic today??to discuss medications. unspecified psychotic disorder??brief psychotic episode in 2018. seems to be stable on current medications and continues to see therapist bi-monthly and is doing well. -??Abilify 5 mg daily >hemoglobin A1c and cholesterol panel done in March WNL -Continue Ativan 0.5 mg as needed. - trazodone to 100 mg nightly. ?? Anxiety:??VPMS was reviewed. ??Patient refilled lorazepam 15 tablets in February. - refilled 15 tablets of 1mg today ?? Morbid obesity:??Patient has a BMI of greater than 50. ?? - community health referral he is interested in dietitian with his - he is going to [facility] today to check it out Venkata was seen today for medication management. Diagnoses and all orders for this visit: Need for influenza vaccination - INFLUENZA VACCINE QUAD (FLULAVAL/FLUARIX/FLUZONE) PF 0.5 ML IM (6 MOS+) Morbid obesity ([facility]) - AMB CONS/FOLLOW UP COMMUNITY HEALTH TEAM Other orders - LORazepam (ATIVAN) 1 mg tablet; Take 0.5-1 Tabs by mouth 3 times daily as needed for Anxiety. Daily Max: 3 mg Rita Kahn DO 09/29/2019 10:48 * Jaky Childers MD - 09/29/2019 1000 EST I discussed the the patient with the resident at the time of the patient's visit. I agree with the findings and plan of care documented in the resident's note. 8:46 09/30/2019 Jaky Childers MD documented in this encounter Plan of Treatment Scheduled Referrals Name Type Priority Associated Diagnoses Orde r Schedule AMB CONS/FOLLOW UP COMMUNITY HEALTH TEAM Outpatient Referral Routine Morbid obesity ([facility]) Ordered: 09/29/2019 documented as of this encounter Goals Goal [...] about your health please visit: https://www.[facility].org/medcenter/Pages/Wellness-Resources/Wjbewpjmb-Imgigb-Di [facility] e-Center.aspx documented as of this encounter Visit Diagnoses Diagnosis Need for influenza vaccination- Primary Need for prophylactic vaccination and inoculation against influenza Morbid obesity ([facility]) Morbid obesity documented in this encounter Discontinued Medications Medication Sig Discontinue Reason Start Date End Da te LORazepam (ATIVAN) 1 mg tablet Take 1 Tab by mouth 2 times daily. Daily Max: 2 mg 03/07/2019 09/29/2019 LORazepam (ATIVAN) 1 mg tablet Take 1 Tab by mouth every 6 hours. Daily Max: 4 mg 08/07/2018 09/29/2019 LORazepam (ATIVAN) 0.5 mg tablet Take 2 Tabs by mouth 3 times daily. Daily Max: 3 mg Reorder 09/12/2019 09/29/2019 documented as of this encounter Orders Immunization/Injection Count Last Ordered Date First Ordered Date INFLUENZA VACCINE QUAD (FLULAVAL/FLUARIX/FLUZONE) PF 0.5 ML IM (6 MOS+) 1 09/29/2019 documented in this encounter Care Teams Instrument Fitter Relationship Specialty Start Date End Date Rita Kahn DO [address] [place] [address] PCP - Alternate 02/13/18 03/16/21 Tremaine Shankar MD 1 [facility] 1 [place] [phone] PCP - General 06/25/18 03/29/22 documented as of this encounter
--- OUTSIDE RECORDS SUMMARY | 2024-06-16 15:24 | XMS_ITS | Encounter Summary ---
Author Organization [facility] Address [address] [place] [address] Care Team Providers Care Construction Engineering Manager Name Role Phone Rita Kahn DO Unavailable [phone] Tremaine Shankar MD Primary Care Provider + Reason for Visit * Reason Comments Nutrition Counseling Encounter Details Date Type Department Care Team (Late st Contact Info) Description 09/03/2020 11:30 EST Nutrition [address] [address] Rita Martinez, RD [address] [facility] [address] [place] [phone] Social History Tobacco Use Types Packs/Day [...] Progress Notes * Rita Carnes, KEV - 09/03/2020 1130 EST [facility] Adult Primary Care & Family Medicine Registered Dietitian Follow up Encounter Date of visit: 09/03/2020 Venkata arrives at today's nutrition visit for [...] in today's encounter visit: Rita Carnes RD SUBJECTIVE: Venkata reports he and his continues with preparing the house for sale. Shares that this has been a lot of work. Current weight 388 lbs; notes 2 lb wt gain since last nutrition visit (2 weeks). Nutrition: Reports not eating per plan over the last few weeks due to adjusting to new schedule. Reports last Sunday night eating pizza, calzones, brownies, beer - this was atypical and a little for comfort. Shares kitchen via zoom, including pantry, spices, beverages (diet soda, diet iced tea, diet red bull, crystal light). Asks to brainstorm dinner ideas. Follow up to review lunch ideas. Alcohol Reports increased alcohol consumption in the last 2 weeks Physical Activity: Has been going for extended walks with dogs - will continue this with. OBJECTIVE: Nutrition Focused Physical Exam: Not completed, per provider discretion Anthropometrics: Wt Readings from Last 3 Encounters: 09/02/20 (!) 176 kg (388 lb) 09/29/19 (!) 178.2 kg (392 lb 12.8 oz) 03/07/19 (!) 169.5 kg (373 lb 9.6 oz) BP Readings from Last 3 Encounters: 09/29/19 110/70 04/09/19 110/80 03/07/19 104/62 Estimated body mass index is 54.12 kg/m?? as calculated from the following: Height as of 03/07/19: 180.3 cm (71). Weight as of 09/02/20: 176 kg (388 lb). Labs: Lab Results Component Value Date WBC [...] Date TSH 0.65 10/01/2012 Medications: Current Outpatient Medications Medication ??? ARIPiprazole (ABILIFY) 5 mg tablet ??? LORazepam (ATIVAN) 1 mg tablet ??? therapeutic hand-body (EUCERIN ORIGINAL) lotion ??? traZODone (DESYREL) 100 mg tablet No current [...] for vegetable and fruit consumption. ?? Reviewed plan for follow up ?? Discussed artificial and non-nutritive sweeteners and recommended intake. Discussed potential association between insulin response w/ intake despite actual sugar/carbohydrate content, and how thismay affect appetite and food cravings. MNT/Educational Materials Provided: None Learning Readiness and Receptivity to Nutrition Education: Receptive to education and demonstrated good understanding STAGE OF CHANGE: Action PATIENT IDENTIFIED GOALS: weight loss (goal weight 350 lbs) PLAN: ?? 3 balanced, consistent meals per [...] - 1 Sunday, 1 Sunday, 2 Sunday Monitoring & Evaluation: RD to monitor dietary intake and physical activity, understanding of nutrition education and recommendations, nutrition related labs and vitals Total time spent with patient on nutrition counselin minutes Ribbon Lap Machine Tender used: no Thank you for your referral, Rita Carnes, MS, RD, CD Clinical Dietitian [facility] Adult Primary Care & Family Medicine [...] health please visit: https://www.[facility].org/medcenter/Pages/Wellness-Resources/Zgdgiqjps-Zziyfy-Sd sourc e-Center.aspx documented as of this encounter Visit Diagnoses Not on filedocumented in this encounter Care Teams Construction Engineering Manager Relationship Specialty Start Date End Date Rita Kahn DO [address] [place] [phone] PCP - Alternate 02/13/18 03/16/21 Tremaine Shankar MD 1 [facility] 1 [place] [phone] PCP - General 06/25/18 03/29/22 documented as of this encounter
--- OUTSIDE RECORDS SUMMARY | 2024-06-16 15:24 | XMS_ITS | Encounter Summary ---
Author Organization [facility] Address [address] [place] [address] Care Team Providers Care Syrup Mixer Name Role Phone Rita Escobedo DO Unavailable Tremaine Shankar MD Primary Care Provider + Reason for Visit * Reason Onset Date Comments Medications Refill 09/11/2019 trazodone / l orazepam Encounter Details Date Type Department Care Team (Late st Contact Info) Description 09/11/2019 Refill [facility] Adult Primary Care [facility] 1 [place], [place] [address] Tremaine Shankar MD 1 [facility] Level [address] [place] [address] Medications Refill (trazodone / lorazepam) [...] Start Date End Da te LORazepam (ATIVAN) 0.5 mg tablet Take 2 Tabs by mouth 3 times daily. Daily Max: 3 mg 6 Tab 09/12/2019 09/29/2019 traZODone (DESYREL) 100 mg tabletIndications:Anxiety, Psychophysiological insomnia Take 1 Tab by mouth at bedtime. 30 Tab 09/11/2019 10/07/2019 documented in this encounter Miscellaneous Notes * Telephone Encounter - Natacha Henderson - 09/12/2019 1238 EST Patient scheduled for OV with Dr. Nai Escobedo on 09/29/19. Patient aware he has a short script available and needs to attend this OV for more meds. * Telephone Encounter - Rey Stout MD - 09/12/2019 1101 EST AVIS Coverage: The previous documentation is unclear but seems to suggest that the patient has been using his ativan very intermittently and this is why he has not required a refill recently. I have sent a prescription for six 0.5mg tablets that he can use prior to being seen by his PCP. * Telephone Encounter - Marlyn Quinones - 09/11/[address] Escobedo's note 04/09 OV note reads as such: -Continue Ativan 0.5 mg as needed. -decrease trazodone to 100 mg nightly. Patient hoping to eventually discounting completely. Will continue this dose for several months and titrate down as tolerated. ?? Anxiety:??VPMS was reviewed. ??Patient refilled lorazepam 15 tablets in February. His last refill priorto that was in July. - no refills of ativan today Appears that patient did not a need a refill at that time, but would be continuing lorazepam overall. Please reassess lorazepam request. * Telephone Encounter - Zunilda Woods DO - 09/11/2019 1031 EST Chart reviewed. Trazodone refilled. Lorazepam declined as last PCP note indicated that this would not be continued. Please schedule him for a follow up with his PCP the next time she is in clinic. Thanks, Zunilda Woods DO * Telephone Encounter - Marlyn Quinones - 09/11/2019 0943 EST Medication(s) Requested: Trazodone / Lorazepam Preferred Pharmacy: [facility] Is patient out of medication? Yes Last Refill Date: 04/10/19 Last Visit Date with Ordering Provider: 03/07/19 Next Non-Acute Visit Date Scheduled with Care Team: No. Marlyn Quinones 09/11/2019 9:43 documented in this encounter Plan of Treatment [...] learn more about your health please visit: https://www.[facility].org/medcenter/Pages/Wellness-Resources/Fipwrbycy-Gtdxms-Js [facility] e-Center.aspx documented as of this encounter Visit Diagnoses Diagnosis Anxiety Anxiety state, unspecified Psychophysiological insomnia Persistent disorder of initiating or maintaining sleep documented in this encounter Discontinued Medications Medication Sig Discontinue Reason Start Date End Da te traZODone (DESYREL) 100 mg tabletIndications:Anxiety ,Psychophysiological insomnia Take 1 Tab by mouth at bedtime. Reorder 04/10/2019 09/11/2019 documented as of this encounter Care Teams Syrup Mixer Relationship Specialty Start Date End Date Rita Escobedo DO [address] [place] [address] PCP - Alternate 02/13/18 03/16/21 Tremaine Shankar MD 1 [facility] 1 [place] [phone] PCP - General 06/25/18 03/29/22 documented as of this encounter
--- OUTSIDE RECORDS SUMMARY | 2024-06-16 15:24 | XMS_ITS | Encounter Summary ---
Author Organization [facility] Address [address] [place] [address] Care Team Providers Care Workers Compensation Claims Examiner Name Role Phone Rita Kahn Eder DO Unavailable [phone] Tremaine Shankar MD Primary Care Provider + Reason for Visit * Reason Onset Date Comments Medications Refill 03/05/2019 Encounter Details Date Type Department Care Team (Late st Contact Info) Description 03/05/2019 Refill [facility] Primary Care [facility] [address] [phone] Tremaine Shankar MD [address] [phone] Medications Refill Social History Tobacco [...] (DESYREL) 100 mg tabletIndications:Anxiety, Psychophysiological insomnia Take 1.5 Tabs by mouth at bedtime. 45 Tab 03/05/2019 04/07/2019 documented in this encounter Miscellaneous Notes * Telephone Encounter - Anca Ta - 03/05/2019 0852 EDT Medication(s) Requested: Trazodone Preferred Pharmacy: [place] Is patient out of medication? Unknown Last Refill Date: 01/14/19 Last Visit Date with Ordering Provider: 08/07/18 Next Non-Acute Visit Date Scheduled with Care Team: Yes. Anca Cely 03/05/2019 8:52 documented in this encounter Plan of Treatment [...] learn more about your health please visit: https://www.[facility].org/medcenter/Pages/Wellness-Resources/Pfxlaobjk-Zhuiov-Qh sourc e-Center.aspx documented as of this encounter Visit Diagnoses Diagnosis Anxiety Anxiety state, unspecified Psychophysiological insomnia Persistent disorder of initiating or maintaining sleep documented in this encounter Discontinued Medications Medication Sig Discontinue Reason Start Date End Da te traZODone (DESYREL) 100 mg tabletIndications:Anxiet y,Psychophysiological insomnia take 1 and 1/2 tablets by mouth at bedtime Reorder 01/14/2019 03/05/2019 documented as of this encounter Care Teams Workers Compensation Claims Examiner Relationship Specialty Start Date End Date Rita Kahn DO [address] [place] [phone] PCP - Alternate 02/13/18 03/16/21 Tremaine Shankar MD 1 [facility] Level 1 [place] [phone] PCP - General 06/25/18 03/29/22 documented as of this encounter
--- OUTSIDE RECORDS SUMMARY | 2024-06-16 15:24 | XMS_ITS | Encounter Summary ---
Author Organization [facility] Address [address] [place] [address] Care Team Providers Care Oracle Pl Sql Developer Name Role Phone KahnRita soriano DO Unavailable Tremaine Shankar MD Primary Care Provider + Reason for Visit * Reason Comments Telemedicine Video Visit SMA Encounter Details Date Type Department Care Team (Late st Contact Info) Description 06/03/2020 14:00 EDT Telemedicine [facility] Adult Primary Care [address] [phone] Carlitos Dow MD 1 [facility] Level [address] [place] [address] Morbid obesity (HCC-CMS) (Primary Dx); Anxiety Social History Tobacco Use Types Packs/Day [...] Tab by mouth daily. 90 Tab 3 06/03/2020 10/04/2020 documented in this encounter Progress Notes * Argelia Mir - 06/03/2020 1400 EDT The concept of ???Telemedicine?? has [...] Argelia Mir * Carlitos Dow MD - 06/03/2020 1400 EDT Shared Medical Appointment - Video Visit HPI: Venkata is here for a shared medical appointment via televideo. Last visit goals: -Eat 3 meals a day more consistently, rather than skipping breakfast and/or lunch, and binging in the evening -Reduce frequency of eating after 6:30 PM Updates: He has been working remotely from home in a new job. This has been stressful. His has been working as well which has generated some stress. I get the sense that his anxiety levels have been veryhigh, and that this has been a limiting factor for him. 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 However, with everything going on, he has stopped going and has regained weight. He also has not been able tosustain the above mentioned goals that he had established in his last visit. His hope is to get reconnected with a plumbing hardware assembler. Current Outpatient Medications Medication ??? ARIPiprazole (ABILIFY) 5 mg tablet ??? LORazepam (ATIVAN) 1 mg tablet ??? therapeutic hand-body (EUCERIN ORIGINAL) lotion ??? traZODone (DESYREL) 100 mg tablet No current facility-administered medications for this visit. Objective: There were no vitals taken for this visit. Physical Exam Psychiatric: Mood and Affect: Mood normal. Behavior: Behavior normal. A/P: Venkata was seen today for telemedicine video visit. Diagnoses and all orders for this visit: Morbid obesity ([facility]): Venkata is interested to get back into some healthier eating habits and more regular exercise. His primary goal is to start with connecting with Rita Carnes again in nutrition. Anxiety: Refilled Abilify. I also think that this is worth addressing on broader scale. We will seeif Venkata would like to come in for a visit specifically to address this. - ARIPiprazole (ABILIFY) 5 mg tablet; Take 1 Tab by mouth daily. Goal Setting: Get back into see Rita Carnes Other issues to address next visit: Anxiety Carlitos Dow MD 06/03/20 17:09 documented in this encounter Plan of Treatment [...] learn more about your health please visit: https://www.[facility].org/medcenter/Pages/Wellness-Resources/Mcqehqrsn-Ecwzcd-Hz sourc e-Center.aspx documented as of this encounter Visit Diagnoses Diagnosis Morbid obesity ([facility])- Primary Morbid obesity Anxiety Anxiety state, unspecified documented in this encounter Discontinued Medications Medication Sig Discontinue Reason Start Date End Da te ARIPiprazole (ABILIFY) 5 mg tabletIndications:Anxiety Take 1 Tab by mouth daily. Reorder 07/16/2019 06/03/2020 documented as of this encounter Care Teams Oracle Pl Sql Developer Relationship Specialty Start Date End Date Rita Kahn DO [address] [place] [address] PCP - Alternate 02/13/18 03/16/21 Tremaine Shankar MD 1 [facility] 1 [place] [address] PCP - General 06/25/18 03/29/22 documented as of this encounter
--- OUTSIDE RECORDS SUMMARY | 2024-06-16 15:24 | XMS_ITS | Encounter Summary ---
Author Organization [facility] Address [address] [place] [address] Care Team Providers Care Car Seat Maker Name Role Phone Rita Kahn DO Unavailable [phone] Tremaine Shankar MD Primary Care Provider + Reason for Visit * Reason Comments Medication Management would like to redu ce trazodone, review bloodwork Encounter Details Date Type Department Care Team ([facility] st Contact Info) Description 04/09/2019 13:30 EDT Office Visit [facility] Adult Primary Care [facility] 1 [place] [address] Unknown, Provider, Tremaine Shankar MD 1 [facility] 1 [place] [address] Rita Kahn, DO [address] [place] [phone] Encounter for long-term (current) use of other medications (Primary Dx) Discharge Disposition: Auto Discharge Social History Tobacco [...] Sign Reading Time Taken Comments Blood Pressure 110/80 04/09/2019 1334 EDT Pulse 72 04/09/2019 1334 EDT Temperature 36.4 ??C (97.6 ??F) 04/09/2019 1334 EDT Respiratory Rate 16 04/09/2019 1334 EDT Oxygen Saturation - - Inhaled Oxygen Concentration - - Weight - - Height - - Body Mass Index - - documented in this encounter Functional Status Functional [...] 04/22/2018 documented as of this encounter Discharge Disposition Disposition Code Departure Means Destination Auto Discharge documented in this encounter Progress Notes * Rita Kahn, DO - 04/09/2019 1330 EDT Subjective: Patient ID: Venkata Zhao is an 34 y.o. male. Chief Complaint Patient presents with ??? Medication Management would like to reduce trazodone, review bloodwork HPI Venkata is presenting to clinic today to discuss medications. He is currently taking Abilify 5 mg daily.He is also taking trazodone 150 mg nightly. He states that he has been doing very well on his medications. His mood has been stable. He denies any delusions, paranoia, disturbances of sleep. He denies any thoughts of self-harm, suicide, harming others. He denies any change in appetite. Denies change in sleep. He recently got and states that he had a great day. He is been very happy. Hestates that he does have some OCD tendencies. His OCD is well controlled. He has been trying to focus his attention more so on healthy things such as walking his dog. Patient states that he is interested in decreasing his trazodone dose. He is hopeful that he will be able to titrate completely off. I last say Venkata 03/07/19. At that time he was presenting with acute complaint of dysuria. UA dip stick was negative. Patient states that those symptoms have resolved Patient Active Problem List Diagnosis ??? Allergic rhinitis ??? Scalp cyst ??? NIA (obstructive sleep apnea) ??? Morbid obesity (HCC-CMS) ??? Psychotic episode (HCC-CMS) ??? Eczema ??? Primary insomnia ??? Anxiety ??? Acute left ankle pain No past medical history on file. No past surgical history on file. Family History Problem Relation Age of Onset ??? Diabetes Maternal Grandmother ??? Schizophrenia Father ??? Mental Illness Sister ??? Eczema Sister ??? Psoriasis Sister ??? Substance Abuse Mother in remission Social Social History Tobacco Use ??? Smoking status: Former Smoker Packs/day: 0.01 Years: 8.00 Pack years: 0.08 Types: Cigarettes Start date: 2004 Last attempt to quit: 08/28/2013 Years since quittin.6 ??? Smokeless tobacco: Never Used Substance Use Topics ??? Alcohol use: Yes Alcohol/week: 0.0 oz Comment: 2 ??? Drug use: Yes Types: Marijuana Current Outpatient Medications on File Prior to Visit Medication Sig Dispense Refill ??? ARIPiprazole (ABILIFY) 5 mg tablet Take 1 Tab by mouth daily. 30 Tab 3 ??? fluocinonide (LIDEX) 0.05 % ointment Apply topically 2 times daily. Do not apply to face, armpit or groin. (Patient not taking: Reported on 08/07/2018) 60 g 3 ??? LORazepam (ATIVAN) 1 mg tablet Take 1 Tab by mouth 2 times daily. Daily Max: 2 mg 15 Tab 0 ??? LORazepam (ATIVAN) 1 mg tablet Take 1 Tab by mouth every 6 hours. Daily Max: 4 mg 15 Tab 0 ??? melatonin 3 mg tablet TAKE ONE TABLET BY MOUTH EVERY NIGHT AT BEDTIME NEEDED FOR INSOMNIA (Patient not taking: Reported on 04/09/2019) 30 Tab 3 ??? therapeutic hand-body (EUCERIN ORIGINAL) lotion Apply topically as needed. ??? traZODone (DESYREL) 100 mg tablet Take 1.5 Tabs by mouth at bedtime. 45 Tab 0 No current facility-administered medications on file prior to visit. Allergies Allergen Reactions ??? Latex, Natural Rubber Review of Systems Constitutional: Negative. Eyes: Negative. Respiratory: Negative. Cardiovascular: Negative. Genitourinary: Negative. Skin: Negative. Psychiatric/Behavioral: Negative for depression, hallucinations, memory loss and suicidal ideas. The patient is not nervous/anxious and does not have insomnia. - See HPI Objective: BP 110/80 Pulse 72 Temp 36.4 ??C (97.6 ??F) (Tympanic) Resp 16 Physical Exam Constitutional: He is oriented to person, place, and time. Morbidly obese HENT: Mouth/Throat: Mucous membranes are moist. Dentition is normal. Eyes: Pupils are equal, round, and reactive to light. Neck: Neck supple. Cardiovascular: Normal rate, regular rhythm and normal heart sounds. Pulmonary/Chest: Effort normal. Abdominal: Soft. Bowel sounds are normal. Neurological: He is alert and oriented to person, place, and time. Skin: Skin is warm and dry. Psychiatric: He has a normal mood and affect. His behavior is normal. Judgment and thought content normal. Assessment: Mr. Zhao PMHx of OAS, alcohol and canabis use unspecified psychotic disorder, unspecified anxiety disorder and 2 previous psychiatric addmissions presenting to clinic today to discuss medications. Plan: unspecified psychotic disorder??brief psychotic episode and monitored in the ED from 06/22??to 06/24.He was discharged from the ED on haldol; however patient felt too groggy on this medication and he was switched to Abilify. He has no-showed and canceled his outpatient psyc follow ups. However, seems to be stable on current medications and continues to see therapist bi-monthly and is doing well. - Abilify 5 mg daily >hemoglobin A1c and cholesterol panel done with week and are normal. -Continue Ativan 0.5 mg as needed. -decrease trazodone to 100 mg nightly. Patient hoping to eventually discounting completely. Will continue this dose for several months and titrate down as tolerated. Anxiety:??VPMS was reviewed. ??Patient refilled lorazepam 15 tablets in February. His last refill priorto that was in July. - no refills of ativan today ?? Morbid obesity:??Patient has a BMI of greater than 50. ??He states that he is had stable weight. ?? - hemoglobin a1c and lipid profile normal. - Patient plans to walk his dog more to loose weight. No diagnosis found. Rita Kahn, DO No orders of the defined types were placed in this encounter. * Tremaine Shankar III, MD, MD - 04/09/2019 1330 EDT Attestation statement: I discussed the patient with the resident/fellow at the time of the visit. Iagree with the findings and the plan of care documented in the resident's/fellow's note. documented in this encounter Plan of Treatment [...] your health please visit: https://www.[facility].org/medcenter/Pages/Wellness-Resources/Mhoawdkel-Kkpyol-Cv sourc e-Center.aspx documented as of this encounter Visit Diagnoses Diagnosis Encounter for long-term (current) use of other medications- Primary documented in this encounter Care Teams Car Seat Maker Relationship Specialty Start Date End Date Rita Kahn DO [address] [place] [phone] PCP - Alternate 02/13/18 03/16/21 Tremaine Shankar MD 1 [facility] Level 1 [place] [phone] PCP - General 06/25/18 03/29/22 documented as of this encounter
--- OUTSIDE RECORDS SUMMARY | 2024-06-16 15:24 | XMS_ITS | Encounter Summary ---
Author Organization [facility] Address [address] [place] [address] Care Team Providers Care Spring Up Supervisor Name Role Phone Rita Kahn DO Unavailable [phone] Tremaine Shankar MD Primary Care Provider + Encounter Details Date Type Department Care Team (Latest Contact Info) Description 08/03/2020 12:30 EST Phlebotomy Only [facility] - [address] [place] [address] COVID-19 ruled out Social History Tobacco Use Types Packs/Day Years [...] learn more about your health please visit: https://www.[facility].org/medcenter/Pages/Wellness-Resources/Dookgttoo-Lmunjk-Hp [facility] e-Center.aspx documented as of this encounter Visit Diagnoses Diagnosis COVID-19 ruled out documented in this encounter Orders Lab Orders Without Results Count Last Ordered D ate First Ordered Date COVID-19 TESTING 1 10/09/2020 documented in this encounter Care Teams Spring Up Supervisor Relationship Specialty Start Date End Date Rita Kahn DO [address] [place] [phone] PCP - Alternate 02/13/18 03/16/21 Tremaine Shankar MD 1 [facility] Level [address] [place] [address] PCP - General 06/25/18 03/29/22 documented as of this encounter
--- OUTSIDE RECORDS SUMMARY | 2024-06-16 15:24 | XMS_ITS | Encounter Summary ---
Author Organization [facility] Address [address] [place] [address] Care Team Providers Care Train Inspector Name Role Phone Rita Kahn DO Unavailable [phone] Tremaine Shankar MD Primary Care Provider + Reason for Visit * Reason Onset Date Comments Labs Only 03/07/2019 Encounter Details Date Type Department Care Team ([facility] st Contact Info) Description 03/07/2019 Telephone [facility] Adult Primary Care - [address] [phone] Rita Kahn, [address] [place] [address] Labs Only Social History Tobacco Use Types Packs/Day Years [...] Miscellaneous Notes * Telephone Encounter - Rita Kahn DO - 03/07/2019 1823 EDT Please call patient to remind him that we have asked him to get blood drawn several times. Due to his morbid obesity and being on Abilify we highly suggest getting Hemoglobin A1c and Cholesterol panel. Please ask if there is a specific reason why he is not having this labs drawn. The labs are currently ordered. They do not until 04/30/19 Thank you documented in this encounter Plan of Treatment [...] about your health please visit: https://www.[facility].org/medcenter/Pages/Wellness-Resources/Wrvbmfzbr-Dtuhpp-Dp [facility] e-Center.aspx documented as of this encounter Visit Diagnoses Not on filedocumented in this encounter Care Teams Train Inspector Relationship Specialty Start Date End Date Rita Kahn DO [address] [place] [address] PCP - Alternate 02/13/18 03/16/21 Tremaine Shankar MD 1 [facility] Level [address] [place] [phone] PCP - General 06/25/18 03/29/22 documented as of this encounter
--- OUTSIDE RECORDS SUMMARY | 2024-06-16 15:24 | XMS_ITS | Encounter Summary ---
Author Organization [facility] Address [address] [place] [address] Care Team Providers Care Finish Repair Worker Name Role Phone Rita Kahn DO Unavailable [phone] Tremaine Shankar MD Primary Care Provider + Reason for Visit * Reason Comments Nutrition Counseling Encounter Details Date Type Department Care Team (Late st Contact Info) Description 01/07/2020 Community Health Team [facility] Adult Primary Care - [address] [phone] Rita Martinez, RD [address] [facility] [address] [place] [phone] Social History Tobacco Use Types Packs/Day [...] Progress Notes * Rita Carnes, RD - 01/07/2020 1301 EDT Community Health Team Registered Dietitian Follow up Encounter Date of visit: 01/07/2020 Nutrition education and counseling follow up encounter with Venkata Zhao for Morbid obesity. Goals from previous nutrition visit: 12/22/2019 PATIENT IDENTIFIED GOALS: weight loss (no specific lb) ?? PLAN: ?? Reduce intake of soda - increase intake of water - replace 1/2 intake of soda with water (2-3 cans per day) ?? Maintain exercise - daily - dancing, basketball, walking dog SUBJECTIVE: Venkata states: ?? 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 Roommate moved out and this has changed things at home Nutrition: ?? Ran out of soda; does not think he will stop drinking soda but he will not buy anymore until he goes to the store again ?? Was increasing intake of water and thinks this has slowed a little ?? Makes , Ali, breakfast sandwich, 10am - will have a breakfast sandwich as well ?? When waking at 4am eating something (ramen OR granola bar) ?? Lunch together with Alcohol Reports going on a bit of ku on ZOOM with DJs and friends; says that he was ok just hanging out and not drinking until there was a challenge to take a shot. Venkata shares he participated in this about 2-3 nights in a row, and has stopped Sleep: Sleep was disturbed when ZOOMing DJs Trying to not nap during the day Notes waking up now around 3-4am; somewhat for work, but also this is when he's been waking up Physical Activity: Continues to walk the dog daily Basketball course closed off r/t covid; this stopped the plan he and his had about playing Considering curb step-aerobics Watched a dance class on IG but did not dance along OBJECTIVE: Nutrition Focused Physical Exam: Not completed, [...] for vegetable and fruit consumption. ?? Reviewed fitness apps and recommendations Discussed motivation for making healthy changes; explored beliefs about making change and ambivalence. RD utilized CA techniques including reflective listening, normalization, and eliciting change talk Defined SMART goals and discussed the purpose, role, and benefit related to making dietary, lifestyle, and behavioral changes. Specific, Measurable, Attainable, Realistic, and have a Time-Frame for completing. ?? Discussed benefits of schedule r/t timing of meals and organization of the day ?? Reviewed significance and importance of consistent meal timing as related to nutrient metabolismand storage and maintaining steady blood glucose levels. ?? Reviewed MNT Hydration; hydrating liquids, water intake recommendations; brainstormed modifications to current fluid choices (diet soda), including seltzer, diluted juice, adding fruit slices or fresh herbs to water, reduced intake of soda, milk, juice. MNT/Educational Materials Provided: none Learning Readiness and Receptivity to Nutrition Education: [...] PATIENT IDENTIFIED GOALS: weight loss (no specific plan) PLAN: ?? Follow routine schedule: grocery delivery (work), breakfast, walk dog, lunch, working on house/organization/ebay ?? Look into [employer] and [employer]; 3pm workout a few times per week ?? Hydration - continue to increase water and decrease soday ADDITIONAL INFORMATION FOR PROVIDER: follow up nutrition in 2 weeks Patient's Primary Care Site: [facility], [address] [place] [address] Total Time: 45 minutes (30 phone, 15 charting) Referral: none Follow up: Date: Tuesday, January 21, 2020 Time: 12 PM With: Rita Carnes Registered Dietitian Location: PHONE Status: Active Thank you for your referral, Rita Carnes, MS, RD, CD Clinical Dietitian [facility] Health Team documented in this encounter [...] learn more about your health please visit: https://www.[facility].org/medcenter/Pages/Wellness-Resources/Gqkxwqhlf-Opuwwf-Lh [facility] e-Center.aspx documented as of this encounter Visit Diagnoses Not on filedocumented in this encounter Care Teams Finish Repair Worker Relationship Specialty Start Date End Date Rita Kahn DO [address] [place] [phone] PCP - Alternate 02/13/18 03/16/21 Tremaine Shankar MD 1 [facility] Level 1 [place] [address] PCP - General 06/25/18 03/29/22 documented as of this encounter
--- OUTSIDE RECORDS SUMMARY | 2024-06-16 15:24 | XMS_ITS | Encounter Summary ---
Author Organization [facility] Address [address] [place] [address] Care Team Providers Care Elevator Adjuster Name Role Phone Rita Kahn DO Unavailable [phone] Tremaine Shankar MD Primary Care Provider + Reason for Visit * Reason Onset Date Comments Medications Refill 10/07/2019 trazodone Encounter Details Date Type Department Care Team (Late st Contact Info) Description 10/07/[address] [facility] Adult Primary Care [facility] 1 [place], [place] [phone] Rita Neville MD [address] [place] [address] Medications Refill (trazodone) Social History Tobacco Use [...] TABLET BY MOUTH AT BEDTIME 30 Tab 1 10/07/2019 12/08/2019 documented in this encounter Miscellaneous Notes * Telephone Encounter - Marlyn Quinones - 10/07/2019 0816 EST Medication(s) Requested: Trazodone Preferred Pharmacy: [address] [facility] Is patient out of medication? Unknown Last Refill Date: 09/11/19 Last Visit Date with Ordering Provider: 09/29/19 Next Non-Acute Visit Date Scheduled with Care Team: Yes. 11/24/19 Marlyn Quinones 10/07/2019 8:17 documented in this encounter Plan of Treatment [...] more about your health please visit: https://www.[facility].org/medcenter/Pages/Wellness-Resources/Qhtryhuca-Zhdfrn-Kb sourc e-Center.aspx documented as of this encounter Visit Diagnoses Diagnosis Anxiety Anxiety state, unspecified Psychophysiological insomnia Persistent disorder of initiating or maintaining sleep documented in this encounter Discontinued Medications Medication Sig Discontinue Reason Start Date End Da te traZODone (DESYREL) 100 mg tabletIndications:Anxiety ,Psychophysiological insomnia Take 1 Tab by mouth at bedtime. 09/11/2019 10/07/2019 documented as of this encounter Care Teams Elevator Adjuster Relationship Specialty Start Date End Date Rita Kahn DO [address] [place] [address] PCP - Alternate 02/13/18 03/16/21 Tremaine Shankar MD 1 [facility] 1 [place] [address] PCP - General 06/25/18 03/29/22 documented as of this encounter
--- OUTSIDE RECORDS SUMMARY | 2024-06-16 15:24 | XMS_ITS | Encounter Summary ---
Author Organization [facility] Address [address] [place] [address] Care Team Providers Care Roofer Helper [employer]ating Name Role Phone Criss Rita Eder DO Unavailable [phone] Tremaine Shankar MD Primary Care Provider + Reason for Visit * Reason Onset Date Comments Paperwork request 02/23/2020 Encounter Details Date Type Department Care Team (Late st Contact Info) Description 02/23/[address] [facility] - [place] [address] [place], [place] [id number] Tremaine Shankar MD 1 [facility] Level [address] [place] [address] Paperwork request Social History Tobacco Use Types Packs/Day Years [...] * Telephone Encounter - Huma Saucedo - 03/09/2020 0851 EDT LMOM with patient to call and schedule televideo visit to discuss CPAP. A new order will need to bedone at this visit as the old order can not be used. Documentation and order need to have the same date on them. * Telephone Encounter - Huma Saucedo - 03/05/2020 1352 EDT Called patient LMOM to call and schedule televideo appointment. * Telephone Encounter - Carlitos Dow MD - 03/04/2020 1714 EDT We did not discuss CPAP in today's visit. If this is missing in documentation, we'll have to eitherschedule another visit or address in the next visit. * Telephone Encounter - Natacha Henderson - 03/03/2020 0945 EDT Call to Deya Kurtz states patient needs new prescription for CPAP supplies and they will also require most recent office visit notes to initiate the process of patient attaining requesting DME. * Telephone Encounter - Natacha Henderson - 02/23/2020 0938 EDT Patient states [facility] requests a new certificate of medical necessity for CPap Supplies. documented in this encounter Plan of Treatment [...] learn more about your health please visit: [email or web address]/[email or web address]-Resources/Mhkdyikhg-Hdxyod-Iv sourc e-Center.aspx documented as of this encounter Visit Diagnoses Diagnosis NIA (obstructive sleep apnea)- Primary Obstructive sleep apnea (adult) (pediatric) documented in this encounter Orders Equipment Count Last Ordered Date First Orde red Date CPAP/BIPAP MACHINE ORDER 1 03/03/2020 documented in this encounter Care Teams Roofer Helper [employer] Relationship Specialty Start Date End Date Rita Kahn DO [address] [place] [address] PCP - Alternate 02/13/18 03/16/21 Tremaine Shankar MD 1 [facility] [address] [place] [phone] PCP - General 06/25/18 03/29/22 documented as of this encounter
--- OUTSIDE RECORDS SUMMARY | 2024-06-16 15:24 | XMS_ITS | Encounter Summary ---
Author Organization [facility] Address [address] [place] [address] Care Team Providers Care Hatchery Man Name Role Phone Rita Kahn DO Unavailable [phone] Tremaine Shankar MD Primary Care Provider + Reason for Visit * Reason Comments Nutrition Counseling Encounter Details Date Type Department Care Team (Late st Contact Info) Description 02/04/2020 Community Health Team [facility] Adult Primary Care - [address] [id number] Rita Martinez, RD [address] [facility] [address] [place] [phone] Social History Tobacco Use Types Packs/Day [...] Progress Notes * Rita Carnes, KEV - 02/04/2020 0804 EDT Community Health Team Registered Dietitian Follow up Encounter Date of visit: 02/04/2020 Nutrition education and counseling follow up encounter with Venkata Zhao for Morbid obesity. Goals from previous nutrition visit: 01/21/2020 PATIENT IDENTIFIED GOALS: weight loss (no specific lb) ?? PLAN: ?? Download Just Dance for [employer] Switch ?? Continue [employer] [place] ?? Stick to one serving for meals; not going beyond 1 plate; adhering to MyPlate SUBJECTIVE: Venkata states: ?? 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 Most of the days schedule is for planning meals, besides meals no other schedule to the day ?? Has a scale at home but states it does not have batteries; is open to monitoring weight, though weekly as every day may be too much Nutrition: Venkata and his have been focusing on more balanced meals; a few occasions of going back for seconds (roast beef) Reflects that he and his have been having reduced portion sizes The other night Venkata's asked if he would go buy him a candy bar, he went and bought himself two. States this has not been as frequent as before and previously would've been ice cream. Alcohol Not disicussed Physical Activity: Using [employer] keara for modifications while dancing Downloaded Just Dance on Switch - did this a few times Reports a few episodes of his going out for a jog and asking Venkata if he's like to go and he declined. OBJECTIVE: Nutrition Focused Physical Exam: Not completed, [...] about making change and ambivalence. RD utilized HI techniques including reflective listening, normalization, and eliciting change talk MNT/Educational Materials Provided: none Learning Readiness and [...] weight loss (no specific lb) PLAN: ?? Put the batteries in the scale; monitor weight weekly ?? Plan more movement ([employer] keara during baseball game, walking, dancing) ?? Continue to plan meals and portion size ?? Plan an activity to do on day (jog, walk) ADDITIONAL INFORMATION FOR PROVIDER: follow up nutrition in 2 weeks Patient's Primary Care Site: [facility] [place], [address] [place] [address] Total Time: 45 minutes (30 phone, 15 charting) Referral: none Follow up: Date: Tuesday, February 18, 2020 Time: 930 AM With: Anuel Ac Dietitian Location: PHONE Status: Active Thank you [...] learn more about your health please visit: [email or web address]/Pages/Wellness-Resources/Wlfociyyc-Bqgtjo-Oz [facility] e-Center.aspx documented as of this encounter Visit Diagnoses Not on filedocumented in this encounter Care Teams Hatchery Man Relationship Specialty Start Date End Date Rita Kahn DO [address] [place] [phone] PCP - Alternate 02/13/18 03/16/21 Tremaine Shankar MD 1 [facility] Level [address] [place] [phone] PCP - General 06/25/18 03/29/22 documented as of this encounter
--- OUTSIDE RECORDS SUMMARY | 2024-06-16 15:24 | XMS_ITS | Encounter Summary ---
Author Organization [facility] Address [address] [place] [address] Care Team Providers Care Curtain Drier Name Role Phone Rita Kahn Eder DO Unavailable [phone] Tremaine Shankar MD Primary Care Provider + Reason for Visit * Reason Comments Psychiatric Evaluation Arrives via w/ concern for psychosis. Wifeto ED entrance, crying, states my is in crisis. Pt observed walking in parking lot, both arms raised in the air. States to let's get the f*ck out of here. informs he hasn't slept for days and days. I don't think he's taking meds. Pt w/ disorganized thought process/ speech pattern and some paranoia. concerned for threat to safety of self/ others, stating last time he got like this [place]. Denies SI/HI * Auth/Cert Specialty Diagnoses / Procedures Referred By Contac t Referred To Contact Diagnoses Bipolar I disorder, current or most recent episode manic, with psychotic features ([facility]) Psychosis, unspecified psychosis type ([facility]) Referral ID Status Reason Start Date Expiration Date Visits Re quested Visits Authorized [id number] 1 1 Encounter Details Date Type Department Care Team (Late st Contact Info) Description 09/21/2020 7:45 EST - 10/04/2020 15:50 EST Hospital Encounter [facility] Inpatient Psychiatry Unit [address] [place] [address], [place] [address] Prince Mcfadden, PAJazC [address] [place], [place] [phone] Trisha Oneal PA-C [address] [facility], [facility], Level [address] [place] [id number] Aditi Romo MD [address] [facility], [place], [address] [place] [phone] Edith Bonner MD [address] [place] [address], [address] [place], [place] [id number] Adriane Gonsalez, [address] [facility], [address] [place] [phone] NIA (obstructive sleep apnea) (Primary Dx); Bipolar I disorder, current or most recent episode manic, with psychotic features ([facility]) Discharge Disposition: Home or Self Care Social [...] 7:59 EST documented as of this encounter Last Filed Vital Signs Vital Sign Reading Time Taken Comments Blood Pressure 109/58 10/04/2020 0800 EST Pulse 75 10/04/2020 0800 EST Temperature 35.9 ??C (96.7 ??F) 10/04/2020 0800 EST Respiratory Rate 16 10/04/2020 0800 EST Oxygen Saturation 97% 10/04/2020 0800 EST Inhaled Oxygen Concentration - - Weight 174.3 kg (384 lb 3.2 oz) 10/03/2020 1027 EST Height 180.3 cm (5' 11) 09/23/2020 1240 EST Body Mass Index 53.59 09/23/2020 1240 EST documented in this encounter [...] 04/22/2018 documented as of this encounter Discharge Summaries * Edith Bonner - 09/28/20202201 EST INPATIENT PSYCHIATRIC DISCHARGE SUMMARY Patient Name: Venkata Zhao : 1985 Date of Admission: 09/21/2020 Date of Discharge: 10/04/2020 Attending at time of discharge: Edith Bonner,* DISCHARGE DIAGNOSIS: Psychiatric Diagnoses : BPAD I, current episode manic, severe with psychotic features Medical Conditions: NIA Reason for Admission: fe History of Present Illness: Patient is a 35 y.o. man with a history of bipolar 1 disorder, unspecified psychotic disorder, brief psychotic disorder, unspecified anxiety, and at least three prior psychiatric hospitalizations who presented to the ED via his due to concern for active fe/psychosis. ?? Per ED provider Prince Mcfadden PA-C's note dated 09/21, copied below in italics: Arrives via w/ concern for psychosis. to ED entrance, crying, states my is in crisis. Pt observed walking in parking lot, both arms raised in the air. States to let's get the f*ck out of here. informs he hasn't slept for days and days. I don't think he's taking meds. Pt w/ disorganized thought process/ speech pattern and some paranoia. concerned for threat to safety of self/ others, stating last time he got like this [place] the interstate. Please see fire crew specialist Antolin Riley's note dated 09/21 for significant collateral including the following: Dolphin Researcher called his who reports concerns about Venkata's level of paranoia escalating. She said that he has been thinking that the police are trying to kill him. She said that last night he sent someone a video of himself saying that people are out to get him. She said last night he was calling and texting people repeatedly. She said he called a director of real estate yesterday asking to buy a house. She said he has not slept in 3 nights. She said she did not feel safe last night due to his paranoia. She said he blocked her once from getting to her phone with his body. She said she did not feel threatened but later she was saying he's not safe here and I don't feel safe with him at home and she thought he was going to come looking for her last night. She said many people were texting her to make sure she was safe. Venkata's reports that several years ago when he was also this delusional he began walking down [address] barefoot in the winter because he felt he had a secret that the [facility] knew about. She reported that he is starting to show the same level of paranoia and beliefs in having a mission. --- On assessment by this medical underwriter, the patient is notably labile and disorganized. When asked about why he came to the hospital, he reported having argued with his about money. When asked why his was so worried about him, Venkata went on a tangent about how she was out all night, then stopped his train of thought partway through, stared at the wall for ~10 sec, and then looked at this medical underwriter and said ok, next? I again asked why his was so worried, at which point he stated that he hadcalled her all night because she'd dropped little hints about where she was. He later admitted tocalling her, her friend with whom she was staying, her brother, and her brother's all night long [...] from midnight to 6am. Venkata did not think that this should be concerning to anyone. He then endorsed not sleep all day today, getting minimal sleep for the last 3 days, and then circledback around to the fact that his went to her friend Ayah's house (so she had told him where she was) but dropped Easter eggs for the patient (again as an explanation to why he kept calling her). ?? Venkata spontaneously talked about how he's sometimes down and sometimes up. This medical underwriter asked what happens when he gets up, to which the patient replied that he gets excited about something [...] and buys trading cards whenever I have money, which he then related to his previous statement about getting into an argument with his about money. When this medical underwriter asked if he currently felt up or down, Venkata replied pretty down I would say. When asked why he feels down, Venkata said the yellow [pause] is getting darker, the green is getting darker and then laughed inappropriately. Meds on Admission: Medications Prior to Admission Medication ??? ARIPiprazole (ABILIFY) 5 mg tablet ??? LORazepam (ATIVAN) 1 mg tablet ??? therapeutic hand-body (EUCERIN ORIGINAL) lotion ??? traZODone (DESYREL) 100 mg tablet Hospital Course: The patient was admitted to [place] [address] inpatient psychiatry unit, on a involuntary basis. Admission physical exam showed no abnormalities. Admission labs were significant for utox significant for presumptive pos for benzodiazepines and cannabinoids. History was obtained from the patient, hospitalrecords, and fire crew specialist. Initial diagnostic assessment 35 y.o. man with a history of bipolar 1 disorder, unspecified psychotic disorder,brief psychotic disorder, unspecified anxiety, and at least three prior psychiatric hospitalizations who presented to the ED via his due to concern for active fe/psychosis. The patient demonstrates numerous symptoms of fe and psychosis, including distractibility, insomnia, increased energy and goal-directed activities, flight of ideas, talkativeness, trying to spend more money, disorganized tangential thought process, and paranoid/delusional thought content. In the setting of prior similar episodes and a diagnosis of bipolar I disorder, it is likely that Mr. Zhao is currently experiencing a manic episode of bipolar I with psychotic features. In the setting of daily cannabis use, cannot rule out the possibility of substance- induced fe/psychosis, although this may be less likely. Signs and symptoms of depression, anxiety, OCD, PTSD, and personality disorder are not endorsed or elicited on exam. The patient meets criteria for inpatient psychiatric hospitalization and maymeet EE criteria given his extreme disorganization, intrusive behavior with his at home, and prior instances of unsafe behavior during manic episodes (eg. walking in the middle of a highway). Dounghas therefore been admitted to psychiatry, currently on a voluntary basis, for acute safety and stabilization, medication management, and coordination of outpatient resources. Final diagnostic assessment 35 y.o. man with a history of bipolar 1 disorder, unspecified psychotic disorder,brief psychotic disorder, unspecified anxiety and at least 3 prior psychiatric hospitalizations whopresented to the ED via his due to concern for active fe/psychosis. Patient initially demonstrated numerous symptoms of fe including distractibility, grandiosity, increased energy, decreased sleep, flight of ideas, talkativeness, disorganized, tangential thought, and paranoid/delusional thought content. These symptoms improved over the course of his hospitalization and with the up-titration of his haldol. His distractibility, grandiosity, and increased energy/decreased sleep all improved. His presentation is most consistent with acute manic episode with psychotic features based on his history, and presenting symptoms and subsequent improvement on antipsychotics. Medication trials On admission, EMBOSSING TOOLSETTER trazodone and abilify were discontinued. Haloperidol was initiated due to prior success with haloperidol. Haloperidol was increased to 15 mg at bedtime and 5 mg every morning with good effect. We prescribed a regimen of 5 mg/5 mg/10 mg for outpatient maintenance. It is imperative Venkata continue taking his medication as an outpatient until/unless he establishesa preferred plan with his outpatient provider. It is recommended that he be considered for a haldoldecanoate RUTH for improved adherence. Additionally, an anti-manic medication such as lithium may be a good choice for maintenance therapy, given his report of depression being his most common symptom. Patient behavior on the unit including violent or self-injurious behavior and group attendance The patient had no violent or self-injurious behavior while on the unit, and attended therapy groups. Family involvement/meetings There were many family meetings held during his hospitalization with his Ai via [employer]. Substance-related counseling and treatment No substance abuse counseling was given during his hospitalization. General medical issues addressed and significant labs or imaging An outpatient referral to the [facility] sleep center was made as Venkata was concerned about his CPAP machine. Demonstration of clinical improvement and engagement in aftercare planning Mr. Zhao came to the hospital displaying symptoms of acute fe including distractibility, grandiosity, increased energy, decreased sleep, flight of ideas, talkativeness, disorganized, tangentialthought, and paranoid/delusional thought content. These symptoms improved throughout the hospital admission. Venkata was encouraged to contact his therapist to increase his appointment frequency from twice monthly to weekly. He was switched to [facility] for his primary care in order to establish care witha psychiatrist. Condition on Discharge: stable Suicide Risk Assessment: Modifiable Risk Factors: Impulsivity Non-modifiable risk factors: Discharge from psychiatric hospital in last 3 months;Male;;Family history of psychiatric illness;Presence of comorbidity (more than one psychiatric disorder) Protective factors: Sense of responsibility to family & social supports/connections;Positive problem solving;Capacity for self- observation;Willingness to comply with treatment plan;Outpatient care in place;Capacity to establish therapeutic alliance Overall Acute Risk Rating: low Overall Chronic Risk Rating: low Violence Risk Assessment: Historical Risk Factors (in the past 12 months): Previous Violence;Charge or conviction for crime;Major mental illness Current Risk Factors: None Modifiable Risk Factors: None Protective Risk Factors: History of stable relationships;Stable employment Acute Risk Rating: low Chronic Risk Rating: low Mental Status Exam on Discharge: Venkata Zhao is a 35 y.o. male who appears stated age, with appropriate hygiene, dressed in sweatpants and a tshirt. Eye contact is socially integrated and pt is behaving collaboratively and is engaged with interview. There is no overt psychomotor agitation or retardation noted. Speech fluency is talkative; articulation is clear; speech has regular rate, volume, and normal prosody; tone is pleasant. Language has proper syntax and grammar. Mood is ???ready to go home?? . Affect is mood congruent, with full range, mildly elevated but improving daily. Thought process is mostly linear but at times circumstantial. Thought content is significant for requesting to return home, collaborative dis charge planning. Pt denies AH, VH and there is no evidence of perceptual disturbance. There is no evidence of suicidal ideation or homicidal ideation. Concentration and attention were maintained throughout interview. Insight is evidenced by recognition of fe and importance of medication adherence and outpatient supports and judgment is evidenced by collaborative discharge planning, continuing to take medications. Rationale for prescription of more than one antipsychotic medication: N/A Disposition: Home Follow-up Referrals and Appointments: Amb Consult/Follow Up Sleep Medicine Patient Type: Adult Adult Sleep Order Type: Medical Provider Reason for Request: CPAP evaluation Discharge Plans/Follow-up Appointments: ?? YOU HAVE AN APPOINTMENT AT [facility], [address] [place] [address] ON October 20 AT 9:30AM, WITH ALFREDO SOTO. THIS IS AN IN PERSON APPOINTMENT. PLEASE WEAR A MASK, BRING INSURANCE CARD AND PHOTO ID, PLEASE CALL THE CLINIC AND LET THEM KNOW IF YOUR IS COMING WITH YOU. ?? YOU HAVE AGREED TO ASK YOUR THERAPIST TO SEE YOU ONCE PER WEEK . PLEASE FOLLOW THROUGH WITH THIS. Mental Health Crisis Services: Mental Health Crisis Services Psychiatric - First Call: [phone] Medication Prescriptions Called to: ?? YOUR MEDICATIONS HAVE BEEN CALLED IN TO [facility] Eugene Nicholas 4 10/04/20 16:25 I was present with the medical student for the history, exam, medical decision making documented bynmm/her. I have edited the student note as appropriate. KATIUSKA COE MD, MPH Psychiatry PGY2 10/05/20 8:25 I was present with the medical student for the history, exam, medical decision making documented bynmshahzad/her. I have personally performed my own physical exam and medical decision making. I have verified and agree with (or, as indicated, have edited) the medical student???s documentation. Attending Addendum: I met with and examined the patient today prior to discharge. Discharge and follow up plan was reviewed with the patient. I agree with the summary and discharge plan as documented in the combined medical student/resident discharge summary (with edits in italics). Total time I spent on discharge was 40 minutes. During that time, we involved his Gladis in a televideo conference call. We reviewed the course of care include subjective and objective indicators of improvement, diagnostic impressions, review of stressors that had led to admission, counseling about adherence with prescribed medications as well as longer-term strategies that may be preferred onthe basis of side-effect profile, plans for discharge (psychosocial recommendations and appointments, medication pick-up, need to change PCP, importance of adherence with Psychiatry follow-up). At 6 months could begin to add lithium to serum level of > 0.6 mEq/L and proceed with cautious taper of haloperidol as tolerated to lowest effective haloperidol dose. We deferred this here given concerns about difficulty understanding instructions re: self-monitoring for lithium toxicity (just tell me ) and about adherence associated with polypharmacy. Edith Bonner MD Attending Psychiatrist Pager [phone] documented in this encounter Discharge Instructions * Appointments* Najma Hickey - 09/29/2020 15:03 EST Discharge Plans/Follow-up Appointments: ?? YOU HAVE AN APPOINTMENT AT [facility], [address] [place] [address] ON October 20 AT 9:30AM, WITH ALFREDO SOTO. THIS IS AN IN PERSON APPOINTMENT. PLEASE WEAR A MASK, BRING INSURANCE CARD AND PHOTO ID, PLEASE CALL THE CLINIC AND LET THEM KNOW IF YOUR IS COMING WITH YOU. ?? YOU HAVE AGREED TO ASK YOUR THERAPIST TO SEE YOU ONCE PER WEEK . PLEASE FOLLOW THROUGH WITH THIS. Mental Health Crisis Services: Mental Health Crisis Services Psychiatric - First Call: [phone] Medication Prescriptions Called to: ?? YOUR MEDICATIONS HAVE BEEN CALLED IN TO [facility] ON [address] documented in this encounter Medications at Time of Discharge Medication Sig Dispensed Refills Start Date End Date benztropine (COGENTIN) 0.5 mg tabletIndications:preventi on of extrapyramidal symptoms Take 1 Tab by mouth 2 times daily for 21 days. 42 Tab 10/04/2020 10/25/2020 cholecalciferol, Vitamin D3, 1,000 unit tabletIndications:preventi on of vitamin D deficiency Take 1 Tab by mouth daily for 21 days. 21 Tab 10/05/2020 10/26/2020 haloperidoL (HALDOL) 5 mg tabletIndications:bipolar disorder Take 1 tablet (5 mg) every morning, 1 tablet (5 mg) every afternoon, and 2 tablets (10 mg) every night before bed 84 Tab 10/04/2020 10/25/2020 melatonin 3 mg tabletIndications:insomnia Take 2 Tabs by mouth at bedtime as needed for up to 21 days for Other (insomnia). 42 Tab 10/04/2020 10/25/2020 documented as of this encounter Ordered Prescriptions Prescription Sig Dispensed Refills Start Date End Da te melatonin 3 mg tabletIndications:insomnia Take 2 Tabs by mouth at bedtime as needed for up to 21 days for Other (insomnia). 42 Tab 10/04/2020 10/25/2020 haloperidoL (HALDOL) 5 mg tabletIndications:bipolar disorder Take 1 tablet (5 mg) every morning, 1 tablet (5 mg) every afternoon, and 2 tablets (10 mg) every night before bed 84 Tab 10/04/2020 10/25/2020 cholecalciferol, Vitamin D3, 1,000 unit tabletIndications:preventi on of vitamin D deficiency Take 1 Tab by mouth daily for 21 days. 21 Tab 10/05/2020 10/26/2020 benztropine (COGENTIN) 0.5 mg tabletIndications:preventi on of extrapyramidal symptoms Take 1 Tab by mouth 2 times daily for 21 days. 42 Tab 10/04/2020 10/25/2020 documented in this encounter Discharge Disposition Disposition Code Departure Means Destination Comment s Home or Self [facility]fp Venkata Zhao's is picking him up from the [facility] ([facility] documented in this encounter Progress Notes * Najma Hickey - 10/04/2020 1550 EST Social Work Progress Note Intervention/Service: Couples, family, work, On-going assessment and Discharge Note Today Venkata met with his via zoom, Dr. Bonner, Dr. Coe, [facility], MS4 and Matias, MS3. We discussed discharge planning. Venkata slept 8 hours last night and had a good weekend. His feelsthat he is doing well today and is prepared for him to return home. Venkata feels that he is ready and discussed his appointments and that he will continue to take his medications. The discharge is planned for today at 4:00pm with his providing transportation to home. A letter to work excusing his absence was faxed to his workplace and then given to Venkata. Venkata also sent a text to his therapist asking for weekly appointments and he also terminated by text with his PCP because he is switching to [facility]. All appointments are noted on the AVS. Venkata feels ready for discharge this afternoon at 4;00pm with his providing transportation. Medications have been called in to [facility]. * Sonia Martinez MD - 10/04/2020 1550 EST Psychiatry Progress Note Date 11/03/2020 Please note: documentation for events of 09/26/2020 have been updated to ensure accuracy of medicalrecords. At the time the patient was demonstrating behavioral dysregulation, staff intervened and were able to provide the patient was prn medication, per his request, as well as providing therapeutic supportive listening which resulted in preventing necessity for any involuntary procedure. The patient did not require Emergency Involuntary procedure on the evening of 09/26/2020. Sonia Martinez MD Resident PGY-1 Psychiatry * Lorenza Tim RN - 10/04/2020 1550 EST Addendum Updated Note for 09/26/20 at 1842 Venkata became upset about the TV remote and began yelling, he became tense with his fists clenched.He began posturing, moving forward and code 8 called at 1824. Provider ordered prn medication: Haldol 5 mg and Benedryl 50 mg oral, which was given at 1824 without incident. * Yudith Cummings RN - 10/03/2020 1300 EST Pt s/p psychosis with manic episode. AXOX3. Stated no pain. Denies HI/SI. Compliant with meds and policies. Redirectable. Pt making his needs known. Pt used music room and gym and group therapy this shift to keep him self occupied. Made hourly checks for safety. Will continue to monitor. * Claire Green, PsyD - 10/03/2020 0820 EST 10/03/2020 ATTENDING NOTE HISTORY: 24 hr events were reviewed and patient's case was discussed in interdisciplinary team rounds. Venkata slept 3.25 hours overnight for a total of 7 hours in the 24 hour period. He is accepting ordered medications and occasionally requests a PRN. Patient Vitals for the past 24 hrs: BP Temp Temp src Pulse Resp SpO2 Weight 10/02/20 1930 -- -- -- -- -- 97 % -- 10/02/20 1055 -- -- -- -- -- -- (!) 175.4 kg (386 lb 9.6 oz) 10/02/20 0911 125/74 36.8 ??C (98.2 ??F) Temporal 79 16 97 % -- MEDICATIONS: Current Facility-Administered Medications Medication Route Frequency ??? acetaminophen (TYLENOL) tablet 500 mg oral Q4H PRN ??? benztropine (COGENTIN) tablet 0.5 mg oral BID ??? cholecalciferol (Vitamin D3) tablet 1,000 Units oral DAILY ??? haloperidoL (HALDOL) tablet 15 mg oral QHS ??? haloperidoL (HALDOL) tablet 5 mg oral BID PRN And ??? LORazepam (ATIVAN) tablet 1 mg oral BID PRN ??? haloperidoL (HALDOL) tablet 5 mg oral DAILY ??? hydrOXYzine (ATARAX) tablet 25 mg oral TID PRN ??? LORazepam (ATIVAN) tablet 1 mg oral Q6H PRN ??? magnesium sulfate (EPSOM SALT) granules topical DAILY ??? melatonin tablet 6 mg oral AT BEDTIME PRN ASSESSMENT: Venkata was found walking on the unit. He was agreeable to meeting with the medical underwriter. He discussed hisrelationship with his at length and noted he would like to have couples therapy, but she refuses. He noted that he often feels like a little bitch man in their relationship, and reflected on the fact that his earns more money than he does. Venkata was calm, cooperative, interactive, and polite throughout this meeting. He made socially integrated eye contact. His speech was WNL in termsof rate, tone, and volume. He was casually dressed and well groomed. He denied needs and reported feeling safe on the unit. He expressed the desire to be able to use his cell phone without restrictions. His thought process was linear and goal directed. He demonstrated a capacity for self-reflectionand insight. 1. NIA (obstructive sleep apnea) 2. Bipolar I disorder, current or most recent episode manic, with psychotic features ([facility]) PLAN: Continue plan per primary team Attending Attestation: I saw and evaluated the patient today. Treatment plan reviewed with the patient and team. Claire Green PsyD. Licensed Psychologist - Doctorate Pager [phone] * Esthela Monroy RT - 10/02/2020 2144 EST Respiratory Nocturnal BIPAP/CPAP Heart Rate: (!) 114 BPM, Resp: 16, SpO2: 97 %, Patient was placed on Device Type: Home Unit, Settings were home settings. Pt tolerating well RT NESHA 10/02/20 * Claire Green PsyD - 10/02/2020 0818 EST 10/02/2020 ATTENDING NOTE HISTORY: 24 hr events were reviewed and patient's case was discussed in interdisciplinary team rounds. Venkata slept intermittently for 5.25 hours. He accepted scheduled medication. A peer was threatening Venkata and posturing toward Venkata. Venkata calmly requested space from this peer. Eventually a code was called for this peer. Venkata reported feeling unsafe on the unit, but notes he feels safe in his room. He reports feeling very anxious about the situation on the unit. He accepted PRN atarax at 1:52 this morning. Patient Vitals for the past 24 hrs: BP Temp Temp src Pulse Resp SpO2 Weight 10/02/20 1055 -- -- -- -- -- -- (!) 175.4 kg (386 lb 9.6 oz) 10/02/20 0911 125/74 36.8 ??C (98.2 ??F) Temporal 79 16 97 % -- MEDICATIONS: Current Facility-Administered Medications Medication Route Frequency ??? acetaminophen (TYLENOL) tablet 500 mg oral Q4H PRN ??? benztropine (COGENTIN) tablet 0.5 mg oral BID ??? cholecalciferol (Vitamin D3) tablet 1,000 Units oral DAILY ??? haloperidoL (HALDOL) tablet 15 mg oral QHS ??? haloperidoL (HALDOL) tablet 5 mg oral BID PRN And ??? LORazepam (ATIVAN) tablet 1 mg oral BID PRN ??? haloperidoL (HALDOL) tablet 5 mg oral DAILY ??? hydrOXYzine (ATARAX) tablet 25 mg oral TID PRN ??? LORazepam (ATIVAN) tablet 1 mg oral Q6H PRN ??? magnesium sulfate (EPSOM SALT) granules topical DAILY ??? melatonin tablet 6 mg oral AT BEDTIME PRN ASSESSMENT: Venkata was found in his room, talking with his nurse. He was agreeable to meeting with the medical underwriter. He was calm, cooperative, and made socially integrated eye contact. His speech was WNL in terms of rate, tone, and volume. He was casually dressed and adequately groomed. He denied needs. He reported feeling safe in his room and noted that when he walks around the unit he feels unsafe due to the behavior of his peers. He proceeded to walk with the medical underwriter around the unit, during which time multiplepeers were intrusive with him, making inappropriate sexual comments, and behaving in odd and bizarre ways. Venkata was extremely patient with these peers, however, he expressed frustration with the situation. He was able to make appropriate choices in order to keep himself safe and move away from these peers. It is noteworthy that at times Venkata makes odd comments and there is a looseness to his associations. 1. NIA (obstructive sleep apnea) 2. Bipolar I disorder, current or most recent episode manic, with psychotic features ([facility]) PLAN: Continue plan per primary team Attending Attestation: I saw and evaluated the patient today. Treatment plan reviewed with the patient and team. Claire Green PsyD. Licensed Psychologist - Doctorate Pager [phone] * Lenny De Leon, RT - 10/01/2020 2224 EST Respiratory Nocturnal BIPAP/CPAP Heart Rate: (!) 114 BPM, Resp: 16, SpO2: 98 %, Patient was placed on Device Type: Home Unit, Settings were home settings. Pt tolerating well LENNY DE LEON, RT 10/01/20 * Najma Hickey - 10/01/2020 1657 EST Social Work Progress Note Intervention/Service: Couples, family, work and On-going assessment Today Venkata met with his Gladis via zoom, Dr. Romo, Dr. Coe, [facility], MS4, and myself. He discussed that he was feeling great! His brought up phone use and that Venkata had been making a lot of phone calls to friends and to [facility]. The team discussed the nature and frequencyof the calls and decided that he will remain on phone restrictions. At one point during the meetingduong got up and danced to loud music on his phone. We discussed that he may be discharged sometime next week. * Dave Mejia RN - 10/01/2020 1135 EST Data: up for breakfast and meds, making needs known. He has many needs, and will ask for things repeatedly through the AM. He requests phone time, porch time, gym time, prns. Noted pacing with peers in the gonsalez, interacting often with staff and peers about plans for the day, goals for the year. While he has not been inappropriate in his bhx, he does have a difficult time self soothing/ spending time in independent activity. His antonio is good, and he is dressed approprietly in clean clothes. Tendsto make requests and pushes the limits set around items like his phone Action:build and maintain rapport. Enc healthy coping, support and direct as needed Response: has been managing bhx approprietly, however engages staff a great deal to do so. DAVE MEJIA RN 10/01/2020 11:35 Continues to spend time in the milieu, walks in the gonsalez. Has numerous requests of staff ie medication , the phone, snacks. Needs support and direction in some interactions with his peers, but has been done with ease. * Demetrius, Aditi Jack MD - 10/01/2020 0931 EST Inpatient Psychiatry Daily Progress Note Date of Service: 10/01/2020 Admit Date: 09/21/2020 Hospital day: LOS: 10 days Legal Status: Legal status: Involuntary Observation Level: Observation / visual check: Q 15 minutes (frequent) Locus/Risk of Harm: Current locus of harm: 3 Reason for Admission/Chief Complaint: Fe Clinical Update/24-hour Events: - Pt had no overnight events and required no emergency medications. Pt states he is doing well this morning. He states he figured it out, clarifying he knows when Iwake up manic or I wake up schizoaffective. He states he thinks he has schizoaffective but I hatethe word. He states he wants to go to the gym to workout, to listen to music, to go home. He states that he used the phone to call [facility] to get a new CPAP machine, called his friends and left voicemails, and called his friend from [place]. He says he called [facility] because he needed a new CPAP because the one he has he has had for 5 years. He shows me a note written on a piece of paper to his friend in [place] wishing him a happy new year and asking about the $23 million in clean f unds. During team meeting with pt, attending Dr. Romo, resident Dr. Coe, MS4 Eugene, ALONZO Najma, and pt's Ai, pt expressed that he was feeling great. Ai mentioned he called her panicked this morning, to which he agrees. Proper use of his phone was discussed, with the team and Ai expressing concern about the amount of phone calls and texts he has been sending to people. Given these concerns, it was decided that phone restrictions would remain in place for now. He states he is sleepingfine except he is getting up early. He states he has been exercising at least 20 min / day. Venkata states that he needs more medication to help him come down, and further maximizing the dose of haldol to 15mg at bedtime was discussed, to which Venkata and Ai were both in agreement. Risks/benefits discussed. Also counseled Ai and Venkata about the recommendation to consider lithium after discharge. The possibility of discharge early next week is also discussed. At one point during meeting he started playing loud music through his cell phone, dancing and singing, and telling his he loved her and was sending her shelly and peace and love. Review of Systems: The pt slept 12 hours over the past 24 hours. Pt is eating well. Pt is tolerating medications and denied medication side effects. Current Scheduled Medications: ??? benztropine, 0.5 mg, BID ??? Cholecalciferol (Vitamin D3), 1,000 Units, DAILY ??? haloperidoL, 15 mg, QHS ??? haloperidoL, 5 mg, DAILY ??? magnesium sulfate, , DAILY Current PRN Medications: ??? acetaminophen, 500 mg, Q4H PRN ??? haloperidoL, 5 mg, BID PRN ??? hydrOXYzine, 25 mg, TID PRN ??? LORazepam, 1 mg, Q6H PRN ??? melatonin, 6 mg, AT BEDTIME PRN Mental Status Exam: Pt is a 35 y.o. male who appears older than stated age with appropriate hygiene, dressed in casual clothes, wearing a mask. Eye contact is socially integrated and pt is behaving collaboratively and engaged with interview. There are no tics, mannerisms, stereotypies, or posturing. Gait is stable. There is some psychomotor agitation noted - during interview patient was lifting his arms above his head at several points, stood up and began dancing, singing, and doing yoga at other points. There areno ritualized or compulsive behaviors. Speech fluency is spontaneous and garrulous but occasionallyinterruptible; articulation is clear; speech rate and volume within normal limits, normal prosody; tone is appropriate. Language has proper syntax and grammar. Mood is ???feeling good?? . Affect is elevated with expansive range. Thought process is mostly linear but there are times when he is tangential with looser associations. Thought content consists of references to sports, expressing interestin using exercise room, fixation on getting new CPAP device and going home. Pt denies AH, VH and there is no evidence of perceptual disturbance. There is no evidence of suicidal ideation or homicidalideation. Concentration and attention were maintained throughout interview. He does seem to have some recognition that he was manic on admission (insight). He continues to take medications, is redirectable on the unit, and is collaborative in discharge planning. Yet he also continues to make multiple phone calls and send many texts to others despite counseling around this (judgment). Physical Exam: BP 126/63 (BP Cuff Location: Left arm, BP Patient Position: Sitting) Pulse 85 Temp 36.4 ??C (97.5 ??F) (Temporal) Resp 16 Ht 180.3 cm (71) Wt (!) 176.6 kg (389 lb 6.4 oz) SpO2 98% BMI 54.31 kg/m?? Data Review: Labs: No results found for this or any previous visit (from the past 24 hour(s)). Young Fe Rating Scale 09/30: 10 Young Fe Rating Scale 10/01: 12 Assessment/Formulation: Venkata Zhao is a 35 y.o. ?man??with a history of bipolar 1 disorder,??unspecified psychosis,??unspecified anxiety,??and at least three??prior??psychiatric hospitalizations whop/w??irritable mood, decreased need for sleep, increased talkativeness, flight of ideas, and distractibility consistent with prior diagnosis of BPAD1. ?? Pt was initiated on haloperidol, titrated to 5 mg AM and 10 mg at bedtime. Today, we will further increase haldol to 15 mg at bedtime, given ongoing symptoms of fe including impulsivity, psychomotor agitation, hyperverbal speech that is only occasionally interruptable, and elevated mood, as wellas Venkata's request to have more medication to help him to come down. He continues to take medications, meet with the team, and be a collaborator in discharge planning. He does continue to make phone calls to many different people including his , friends, and businesses. Pt may benefit (and did express interest) in dual therapy with lithium and haloperidol, however this may be more appropriate to begin as an outpatient, as he is expected to discharge within the next few days. Venkata Zhao meets criteria for acute level of care. Diagnostic Impression w/ Differential Diagnosis Psychiatric Diagnoses - Bipolar disorder type I, current episode manic with psychotic features Other Medical Conditions - NIA on CPAP,??class 3 obesity, pre-diabetes vs. Diabetes - Vit D deficiency Plan: Legal status: Involuntary; Observation / visual check: Q 15 minutes (frequent); Current locus of harm: 3 Bipolar disorder type I, current episode manic with psychotic features Ef is somewhat improved but he continues to be hyperverbal, interrupts during conversation, and somewhat impulsive with regards to his phone use especially. He continues to be collaborative duringteam meetings and takes his medications - Continue haldol 5 mg AM and increase PM dose to 15 mg - Start 0.5 mg benztropine BID - group and individual psychotherapy - encourage exercise and music - therapeutic milieu - Unsupervised unit phone use and supervised personal phone use. A goal for this weekend is to get to a point where he can use his personal phone independently. He needs to demonstrate that he is notmaking lots of calls to people and is able to regulate this. Vitamin D deficiency - Vitamin D3 1000 units daily NIA - CPAP overnight - Outpatient referral placed for sleep specialist Current Scheduled Medications: ??? benztropine, 0.5 mg, BID ??? Cholecalciferol (Vitamin D3), 1,000 Units, DAILY ??? haloperidoL, 15 mg, QHS ??? haloperidoL, 5 mg, DAILY ??? magnesium sulfate, , DAILY Discharge Plan: Discharge pending clinical improvement and establishment of outpatient care, d/c planning per multidisciplinary team rounds. Eugene Nicholas MS4 10/01/2020 9:31 Cortext Attending Attestation: I was present with the medical student on 10/01 for the history, exam, and medical decision making documented by him/her. I have personally performed my own physical exam and medical decision making. Jaiave verified and agree with (or, as indicated, have edited in blue) the combined medical student's/resident's documentation. Treatment plan reviewed with the patient and team. I spent a total of 40 minutes in [id number] time with the patient, with 30 minutes of that time spent in counseling and/or coordination of care as described in the progress note. Counseling with the patient today included discussion about diagnostic assessment/impressions, treatment options, risks and benefits of different management options, and treatment recommendations. Coordination of care included discussion with the multidisciplinary team regarding the nature of the patient's condition and the needs of the patient and family. Aditi Romo MD Attending Psychiatrist Pager [phone] * Rosy Musa RT - 09/30/2020 2050 EST Pt has his home CPAP machine from home. Machine inspected, no issues c CPAP,sticker placed. Machineleft set up on pt bedside table,pt will place himself on when ready, pt awaiting meds from RN. * Najma Hickey - 09/30/2020 1645 EST Social Work Progress Note Intervention/Service: Couples, family, work and On-going assessment Today I Spoke with Venkata's and provided a brief update. I arranged for a zoom meeting tomorrow with Ai, at 1:30pm. * Eugene Nicholas - 09/30/2020 1428 EST Inpatient Psychiatry Daily Progress Note Date of Service: 09/30/2020 Admit Date: 09/21/2020 Hospital day: LOS: 9 days Legal Status: Legal status: Involuntary Observation Level: Observation / visual check: Q 15 minutes (frequent) Locus/Risk of Harm: Current locus of harm: 3 Reason for Admission/Chief Complaint: Fe Clinical Update/24-hour Events: - Pt had no overnight events and required no emergency medications. Patient did make inappropriate phone call to [employer] at 1420 in the afternoon on 09/29. During PCR with attending Dr. Bonner, resident Dr. Coe, RN Tatyana, MS4 Eugene, and MS3 Matias andisaías pt, patient states the news is horrible, sports are ok, stocks are up except for Twitter. He states he is focusing on my fitness, my understanding of myself and my health. He states he goes to my happy place, outside a lot, and focus on things I can control. He acknowledges that the phone call to his realtor was inappropriate. Initially when asked he states that his Gladis would say it was inappropriate, causing alarms. Later in the conversation he acknowledges himself that it would cause alarm. He spoke about Arsen, his 's twin, whom we described as his accountability partner, and that even though they sometimes go for a long time without speaking, he wants to call him. He expressed that maybe Arsen feels bad about what he said, maybe this led me to being here. Later in the conversation he acknowledges he was manic, I was an 11/10, on a scale from 1-10, but feels like he is coming down now. Patient was amenable to a meeting on 10/01 with his to discuss discharge planning/timeline. Review of Systems: The pt slept 8 hours over the past 24 hours. Pt is eating well. Pt is tolerating medications and denied medication side effects. Current Scheduled Medications: ??? Cholecalciferol (Vitamin D3), 1,000 Units, DAILY ??? haloperidoL, 10 mg, QHS ??? haloperidoL, 5 mg, DAILY ??? magnesium sulfate, , DAILY Current PRN Medications: ??? acetaminophen, 500 mg, Q4H PRN ??? haloperidoL, 5 mg, BID PRN ??? hydrOXYzine, 25 mg, TID PRN ??? LORazepam, 1 mg, Q6H PRN ??? melatonin, 6 mg, AT BEDTIME PRN Mental Status Exam: Pt is a 35 y.o. male who appears older than stated age, with moderate hygiene, dressed in casual clothes, wearing a mask. Eye contact is socially integrated and pt is behaving collaboratively and engaged with interview. There are no tics, mannerisms, stereotypies, or posturing. Gait is stable. There is no psychomotor agitation or retardation noted. There are no ritualized or compulsive behaviors.Speech fluency is spontaneous and talkative; articulation is clear; speech rate and volume within normal limits mostly, at times hyper- verbal but interruptible, normal prosody; tone is appropriate. Language has proper syntax and grammar. Mood is ???happy?? . Affect is still slightly elevated with expansive range. Thought process is mostly linear but there are times when he is tangential with looser associations. Thought content consists of vague references to current events, expressing interests in leaving hospital, stories about his family. Pt denies AH, VH and there is no evidence of percept ual disturbance. There is no evidence of suicidal ideation or homicidal ideation. Concentration andattention were maintained throughout interview. Insight is evidenced by his stated understanding that he was manic on admission and is now improving and judgment is evidenced by continued willingnessto take medications, and plan for a safe and effective discharge. Physical Exam: BP 123/70 (BP Cuff Location: Right arm, BP Patient Position: Sitting) Pulse 80 Temp 36.3 ??C (97.3 ??F) (Temporal) Resp 16 Ht 180.3 cm (71) Wt (!) 176.6 kg (389 lb 6.4 oz) SpO2 96% BMI54.31 kg/m?? Data Review: Labs: No results found for this or any previous visit (from the past 24 hour(s)). Young Fe Rating Scale 09/30: 10 Assessment/Formulation: Venkata Zhao is a 35 y.o. ?man??with a history of bipolar 1 disorder,??unspecified psychosis,??unspecified anxiety,??and at least three??prior??psychiatric hospitalizations whop/w??irritable mood, decreased need for sleep, increased talkativeness, flight of ideas, and distractibility consistent with prior diagnosis of BPAD1. ?? Pt was initiated on haloperidol, titrated to 5 mg AM and 10 mg at bedtime. He continues to have improvement in his insight regarding bipolar and the fact that he was manic upon admission. He also continues to express a willingness to meet with the team and collaborate on discharge planning. He continues to take medications. Pt's fe appears to be resolving. Pt did express interest in dual therapy with lithium and haloperidol, however this may be more appropriate to begin as an outpatient, as he is expected to discharge within the next few days. Venkata Zhao meets criteria for acute level of care. Diagnostic Impression w/ Differential Diagnosis Psychiatric Diagnoses - Bipolar disorder type I, current episode manic with psychotic features Other Medical Conditions - NIA on CPAP,??class 3 obesity, pre-diabetes vs. Diabetes - Vit D deficiency Plan: Legal status: Involuntary; Observation / visual check: Q 15 minutes (frequent); Current locus of harm: 3 Bipolar disorder type I, current episode manic with psychotic features Fe continues to improve, patient continues to have more insight into his fe and continues to participate in team meetings and take medications. - Continue haldol 5 mg AM and 10 mg PM - group and individual psychotherapy - encourage exercise and music - therapeutic milieu Vitamin D deficiency - Vitamin D3 1000 units daily NIA - CPAP overnight Current Scheduled Medications: ??? Cholecalciferol (Vitamin D3), 1,000 Units, DAILY ??? haloperidoL, 10 mg, QHS ??? haloperidoL, 5 mg, DAILY ??? magnesium sulfate, , DAILY Discharge Plan: Discharge pending clinical improvement and establishment of outpatient care, d/c planning per multidisciplinary team rounds. Eugene Nicholas MS4 09/30/2020 14:28 Cortext Associated attestation - Edith Bonner - 10/07/2020 0839 EST I was present with the medical student for the history, exam, medical decision making documented byhim/her. I have personally performed my own physical exam and medical decision making. I have verified and agree with (or, as indicated, have edited) the medical student???s documentation. Attending Attestation: I met with and examined the patient on 09/30/2020. Treatment plan reviewed with the patient and team.Except as edited using italics and/or addended here, I agree with the findings and plan of care as documented in MSAshvin Nicholas's note. Edith Bonner MD Attending Psychiatrist Pager [phone] * Eloina Lopez RT - 09/30/2020 0128 EST Respiratory Nocturnal BIPAP/CPAP Heart Rate: (!) 114 BPM, Resp: 16, SpO2: 97 %, Patient was placed on Device Type: Resmed, Settings were: CPAP 15/5 auto- titrate, no pressure support. Pt tolerating well RT RAYMUNDO 09/30/20 * Katiuska Coe MD - 09/29/2020 1411 EST Inpatient Psychiatry Daily Progress Note Date of Service: 09/29/2020 Admit Date: 09/21/2020 Hospital day: LOS: 8 days Legal Status: Legal status: Involuntary Observation Level: Observation / visual check: Constant (direct) Locus/Risk of Harm: Current locus of harm: 3 Reason for Admission/Chief Complaint: fe Clinical Update/24-hour Events: - Pt had no overnight events and required no emergency medications. Took PRN Tylenol, Ativan, and Melatonin before sleep. During PCR with attending Dr. Bonner, Matias Fowler MS3, Resident Dr. Coe, Eugene MS4, nurse alexi, MHT Moncho and the pt, pt was much less distracted and disorganized during the interview todaythan he was yesterday. He started the meeting off by talking about phone restrictions, and how he wasn't happy that he wasn't allowed to talk to his whenever he wanted to. It sounded like he mentioned that he would try and get other patients on the floor to help him make calls. Moncho mentioned that some of the other patients on the floor were giving Venkata a hard time, but that Venkata maintained composure. Pt gave a detailed story about his father passing in September of 2019. He said his father was homeless and froze to , and that his passing has been hard on him. He mentioned wanting to go and buypizza for the firefighters who found him. Pt also mentions that he is aware that his father had psychiatric illness. Pt says his parents conceived Venkata in a psych pineda, and all of this is somethingthat has an effect on him. Najma told the patient he will need a new PCP, he was not happy about it but said okay. He went on to then talk about his therapist, and how he may not need a marriage therapist anymore (he was intentionally vague about this). He talked about how he hopes his didn't change anything about the finances while he has been in the hospital, and how his 's twin's has had bankruptcy issues in the past and the pt sometimes believes that he gets a hold of his accounts on various web sites, including his fantasy basketball account. Pt talked about his living situation and wanting to move into a new house with his . He wants to leave and just get psychiatric care as an outpatient. Dr. Coe talked about lithium with the patient as a potential bipolar maintenance medication. Pt was in agreement with starting medication. However, pt may discharge over the next few days (before appropriate lithium levels can be monitored), so initiation of lithium will likely be deferred to outpatient providers. Review of Systems: The pt slept 5 hours over the past 24 hours. Pt is eating well. Pt is tolerating medications and denied medication side effects Current Scheduled Medications: ??? Cholecalciferol (Vitamin D3), 1,000 Units, DAILY ??? haloperidoL, 10 mg, QHS ??? haloperidoL, 5 mg, DAILY ??? magnesium sulfate, , DAILY Current PRN Medications: ??? acetaminophen, 500 mg, Q4H PRN ??? haloperidoL, 5 mg, BID PRN ??? hydrOXYzine, 25 mg, TID PRN ??? LORazepam, 1 mg, Q6H PRN ??? melatonin, 6 mg, AT BEDTIME PRN Mental Status Exam: Pt is a 35 y.o. who appears older than stated age, dressed in casual clothes. Eye contact is socially integrated and pt is behaving collaboratively and engaged with the interview. The pt did not exhibit tics but he did repeatedly squeeze on his stress ball, which seemed to help him. Gait is stable.There is some psychomotor agitation (squeezing stress ball, and pt became agitated over phone restrictions after team meeting). There are no ritualized or compulsive behaviors. Speech fluency is spontaneous and talkative, articulation is clear; speech has hyperverbal, mildly pressured (interruptingothers, but interruptable), volume, and prosody; tone is a little sarcastic. Language has proper syntax and grammar. Mood is ???good?? . Affect is elevated but less so than yesterday, full range. Thought process is often tangential with flight of ideas and occasional loose associations. Thought content consists of many stories of his personal life, both past and present, and some metaphors. Thereis no evidence of perceptual disturbance. There is no evidence of suicidal ideation or homicidal ideation. Concentration and attention was mildly distracted were maintained throughout interview. Insight is evidenced by increasingly embracing his likely Dx of bipolar d/o and judgment is evidenced by his willingness to take the medications he needs. Physical Exam: BP 129/85 (BP Cuff Location: Right arm, BP Patient Position: Sitting) Pulse 87 Temp 36.6 ??C (97.9 ??F) (Temporal) Resp 16 Ht 180.3 cm (71) Wt (!) 176.6 kg (389 lb 6.4 oz) SpO2 97% BMI54.31 kg/m?? Data Review: Labs: No results found for this or any previous visit (from the past 24 hour(s)). Other studies: N/A Assessment/Formulation: Venkata Zhao is a 35 y.o.?man??with a history of bipolar 1 disorder, unspecified psychosis, unspecified anxiety,??and at least three??prior??psychiatric hospitalizations whop/w??irritable mood, decreased need for sleep, increased talkativeness, flight of ideas, and distractibility consistent with prior diagnosis of BPAD1.??The role of cannabis may be contributing to hispresentation. Pt was initiated on haloperidol, titrated to 5 mg AM and 10 mg at bedtime. Exam today significant for improvement in terms of insight regarding bipolar, Rx adherence, and social interaction. Pt's fe appears to be resolving. Pt expressed interest in dual therapy with lithium and haloperidol. However, pt may discharge over the next few days (before appropriate lithium levels can be monitored), so initiation of lithium will likely be deferred to outpatient providers. Venkata Zhao meets criteria for acute level of care. Diagnostic Impression w/ Differential Diagnosis Psychiatric Diagnoses (including Personality Traits/Disorders): - bipolar I disorder, current episode manic with psychotic features ?? Other Medical Conditions: - NIA on CPAP,??class 3 obesity, pre-diabetes vs. Diabetes - Vit D deficiency Plan: Legal status: Involuntary; Observation / visual check: Constant (direct); Current locus of harm: 3 - group psychotherapy - encourage exercise - therapeutic milieu Manic episode with psychotic features: - continue haloperidol from 5 mg BID to 10mg at bedtime (09/27/19) ?? Health maintenance: - CPAP overnight for NIA - Cholecalciferol tab 1000U qdaily Current Scheduled Medications: ??? Cholecalciferol (Vitamin D3), 1,000 Units, DAILY ??? haloperidoL, 10 mg, QHS ??? haloperidoL, 5 mg, DAILY ??? magnesium sulfate, , DAILY Discharge Plan: Discharge pending clinical improvement and establishment of outpatient care Matias Anthony, MS3 09/29/2020 14:11 I was present with the medical student for the history, exam, medical decision making documented byhim/her. I have edited the student note as appropriate. KATIUSKA COE MD, MPH Psychiatry PGY2 09/29/20 17:16 Associated attestation - Edith Bonner - 10/05/2020 1412 EST I was present with the medical student for the history, exam, medical decision making documented byhim/her. I have personally performed my own physical exam and medical decision making. I have verified and agree with (or, as indicated, have edited) the medical student???s documentation. Attending Attestation: I met with and examined the patient on 09/29/2020. Treatment plan reviewed with the patient and team.Except as edited using italics and/or addended here, I agree with the findings and plan of care as documented in the combined resident/medical student note. Edith Bonner MD Attending Psychiatrist Pager [phone] * Loida Gan, - 09/29/2020 0312 EST Respiratory Nocturnal BIPAP/CPAP Heart Rate: (!) 114 BPM, Resp: 16, SpO2: 97 %, Patient was provided with Device Type: Resmed full faced large mask. Settings are cpap [id number]/5 with no PS. RT JORGE 09/29/20 * Anthony Matias - 09/28/2020 1620 EST Inpatient Psychiatry Daily Progress Note Date of Service: 09/28/2020 Admit Date: 09/21/2020 Hospital day: LOS: 7 days Legal Status: Legal status: Involuntary Observation Level: Observation / visual check: Constant (direct) Locus/Risk of Harm: Current locus of harm: 3 Reason for Admission/Chief Complaint: fe Clinical Update/24-hour Events: - Pt had no overnight events and required no emergency medications. During PCR with attending Dr. Bonner, SALINA Najma Matias, MS3 and the pt discussed pt's current state. Pt seemed very distracted and disorganized during the interview, repeatedly staring at moving cars,getting up, flicking a checkers piece, and examining puzzle pieces. He also had a very sarcastic tone throughout the interview and did not seem to be answering our questions in good shane, and therefore we could not get much information from him. He asked repeatedly to end the meeting early, and gita discharged. Review of Systems: The pt slept 4.75 hours over the past 24 hours. Pt is eating well. Pt is tolerating medications anddenied medication side effects Current Scheduled Medications: ??? Cholecalciferol (Vitamin D3), 1,000 Units, DAILY ??? haloperidoL, 10 mg, QHS ??? haloperidoL, 5 mg, DAILY ??? magnesium sulfate, , DAILY Current PRN Medications: ??? acetaminophen, 500 mg, Q4H PRN ??? haloperidoL, 5 mg, BID PRN ??? hydrOXYzine, 25 mg, TID PRN ??? LORazepam, 1 mg, Q6H PRN ??? melatonin, 6 mg, AT BEDTIME PRN Mental Status Exam: Pt is a 35 y.o. who appears older than stated age, dressed in casual clothes. Eye contact is socially integrated and pt is behaving non-collaboratively and somewhat engaged with interview. There are tics, mannerisms, stereotypies, posturing significant for repeatedly flipping a checkers piece and getting up. Gait is stable. There is no psychomotor agitation or retardation noted. There are ritualized or compulsive behaviors as described above. Speech fluency is spontaneous and talkative, articulation is clear; speech has regular rate, volume, and prosody; tone is sarcastic. Language has propersyntax and grammar. Mood is ???good?? . Affect is mood congruent, full range. Thought process is dis organized with loose associations. Thought content consists of patient wanting to end the meeting and to be discharged. Pt does not exhibit AH, VH and there is no evidence of perceptual disturbance. There is no evidence of suicidal ideation or homicidal ideation. Concentration and attention were not maintained strongly throughout interview. Insight is evidenced by not thinking our interview was very serious and judgment is evidenced by not being very compliant with his providers. Physical Exam: BP 141/83 (BP Patient Position: Sitting) Pulse 104 Temp 36 ??C (96.8 ??F) (Temporal) Resp 16 Ht 180.3 cm (71) Wt (!) 176.6 kg (389 lb 6.4 oz) SpO2 97% BMI 54.31 kg/m?? Data Review: Labs: No results found for this or any previous visit (from the past 24 hour(s)). Other studies: N/A Assessment/Formulation: Venkata Zhao is a 35 y.o.?man??with a history of bipolar 1 disorder, unspecified psychosis, unspecified anxiety,??and at least three??prior??psychiatric hospitalizations whopresented to the ED via his due to concern for active??fe/psychosis.? Exam today significant for flight of ideas and distractibility. The interview was not very productive due to patient's sarcastic answers to most of the questions being asked. Otherwise, the patient has not acted out today like he has on previous days and appears more calm. Venkata Zhao meets criteria for acute level of care. Diagnostic Impression w/ Differential Diagnosis Psychiatric Diagnoses (including Personality Traits/Disorders): - bipolar I disorder, current episode manic with psychotic features ?? Other Medical Conditions: - NIA on CPAP,??class 3 obesity, pre-diabetes vs. Diabetes - Vit D deficiency Plan: Legal status: Involuntary; Observation / visual check: Constant (direct); Current locus of harm: 3 - group psychotherapy - encourage exercise - therapeutic milieu Manic episode with psychotic features: -??Discontinue trazodone 100mg at bedtime (09/22/20) - Increase haloperidol from 5 mg BID to 10mg at bedtime (09/27/19) ?? Health maintenance: - CPAP overnight for NIA - Cholecalciferol tab 1000U qdaily Current Scheduled Medications: ??? Cholecalciferol (Vitamin D3), 1,000 Units, DAILY ??? haloperidoL, 10 mg, QHS ??? haloperidoL, 5 mg, DAILY ??? magnesium sulfate, , DAILY Discharge Plan: Discharge pending clinical improvement and establishment of outpatient care Matias Cruz MS3 09/28/2020 16:20 Associated attestation - Edith Bonner - 10/05/2020 1411 EST I was present with the medical student for the history, exam, medical decision making documented byhim/her. I have personally performed my own physical exam and medical decision making. I have verified and agree with (or as addended here) the medical student???s documentation. Attending Attestation: I met with and examined Mr. Zhao on 09/28/2019. Treatment plan reviewed with the patient and team.Except as edited using italics and/or addended here, I agree with the findings and plan of care as documented in MSRaf Cruz's note. Edith Bonner MD Attending Psychiatrist Pager [phone] * Loida Gan RT - 09/28/2020 0234 EST Respiratory Nocturnal BIPAP/CPAP Heart Rate: (!) 114 BPM, Resp: 18, SpO2: 98 %, Patient was placed on Device Type: Resmed full faced large mask. Settings were cpap auto-titrate 15/5 with no PS. Pt tolerating well with sitter in room. RT JORGE 09/28/20 * Najma Hickey - 09/27/2020 1857 EST Social Work Progress Notes Intervention/Service: PROGRESS NOTE Today, Venkata met with Gladis via zoom, Dr. Bonner, Joanne Peng, RN and myself. Venkata began asking his many questions quickly and without a break to answer. He would not allow others tospeak and often spoke over others. He said that it is hell to be on the unit, he has a bruise on his knee, he asked why it was a struggle to have a phone here, and then it was explained that he is onphone restrictions for making calls to the [facility] over the weekend. It was discussed that Venkata is inneed of a psychiatrist and he did agree to change is pcp to [facility] and they prefer the [place] office. He mentioned he might like a new therapist. He agreed to an increase in Haldol. It was discussed that in order to discharge he will need to sleep 6 hours at least 2 days in a row and be able to have a meeting where everyone can speak without getting interrupted. * Edith Bonner - 09/27/2020 1839 EST Inpatient Psychiatry Daily Progress Note Date of Service: 09/27/2020 Admit Date: 09/21/2020 Hospital day: LOS: 6 days Legal Status: Legal status: Involuntary Observation Level: Observation / visual check: Constant (direct) Locus/Risk of Harm: Current locus of harm: 3 Reason for Admission/Chief Complaint: fe Clinical Update/24-hour Events: - Pt had a Code 8overnight events and required haldol 5 mg and benadryl emergency medications. During PCR with attending Dr. Bonner, resident Dr. Coe, SALINA Yao, RN Lorenza, pt's Ai, and the pt discussed pt's current state. Pt was repeatedly intrusive with questions, What have you done with my financial accounts? How wasyour birthday? How was your New Years Meche? How are the cars? Where are the dogs? Pt's Ai expressed that a triad of stress, anxiety, and depression leads to lack of sleep and culminates in fe. Aripiprazole had been ineffective but maxed out at 5 mg daily and ziprasidone had caused him to feel sluggish per Ms. Davis' recollection. Ai also noted that the pt appeared more calm and linear today, which was noted to be temporally related to receiving a total of 15 mg haldol yesterday due to the Code 8. Pt was in agreement with increasing haldol from 5 mg BID to 10 mg at bedtime and 5 mg AM. Review of Systems: The pt slept 4.25 hours over the past 24 hours. Pt is eating well. Pt is tolerating medications anddenied medication side effects Current Scheduled Medications: ??? Cholecalciferol (Vitamin D3), 1,000 Units, DAILY ??? haloperidoL, 10 mg, QHS ??? [START ON 09/28/2020] haloperidoL, 5 mg, DAILY ??? magnesium sulfate, , DAILY Current PRN Medications: ??? acetaminophen, 500 mg, Q4H PRN ??? haloperidoL, 5 mg, BID PRN ??? hydrOXYzine, 25 mg, TID PRN ??? LORazepam, 1 mg, Q6H PRN ??? melatonin, 6 mg, AT BEDTIME PRN Mental Status Exam: Pt is 35 y.o. and is dressed casually. Eye contact is conversationally- integrated. Collaborative with request for interview. There are no tics, mannerisms, stereotypies, or posturing. Gait is stable.There is no psychomotor agitation or retardation. There are no ritualized or compulsive behaviors. S peech fluency is spontaneous and talkative; articulation is clear. Speech has regular rate, sometimes increased volume, and regular prosody; tone is dismissive and intrusive. Language has proper syntax and grammar, expressive skills are well-developed, pragmatic skills somewhat less so. Mood is ???g reat?? . Affect is elevated, tense, but improved compared to prior days. Irritable edge, relativelyintolerant of alternate points of view. Thought process is circumstantial with flight of ideas. Thought content includes focus on narcissistic injury associated with psychiatric admission, suspicion r egarding his 's behavior while he is in hospital and motives for bringing him to hospital, resentment surrounding the manner in which he was brought to hospital. No perceptual distortions. There is no suicidal ideation or homicidal ideation. Concentration and attention were maintained throughout interview. Insight and judgment is evidenced by difficulty admitting that he has been experiencingacute fe, burgeoning awareness that his emotions and mentation had been altered, recent requirement for Code 8 but adherent to pharmacologic recommendations and requests for participation in team meeting. Physical Exam: BP 139/82 (BP Patient Position: Sitting) Pulse 98 Temp 37.1 ??C (98.8 ??F) (Temporal) Resp 18 Ht 180.3 cm (71) Wt (!) 176.6 kg (389 lb 6.4 oz) SpO2 98% BMI 54.31 kg/m?? Data Review: Labs: No results found for this or any previous visit (from the past 24 hour(s)). Other studies: N/A Assessment/Formulation: Venkata Zhao is a 35 y.o.?man??with a history of bipolar 1 disorder, unspecified psychosis, unspecified anxiety,??and at least three??prior??psychiatric hospitalizations whopresented to the ED via his due to concern for active??fe/psychosis.? Exam today significant for acute fe including irritable mood, decreased need for sleep, increased talkativeness, flight of ideas, and distractibility consistent with prior diagnosis of BPAD1. In the setting of daily cannabis use, cannot rule out the possibility of substance-induced fe/psychosis, although given his psychiatric history, the role of cannabis may be contributory rather than causal. Pt was initiated on haloperidol increased to 5 mg BID over the weekend with insufficient efficacy. Pt had a Code 8 yesterday (running naked in the hallway, posturing aggressively with staff), andreceived an additional haldol 5 mg IM + benadryl 50 mg. Pt appears more calm today and is in agreement with increasing haloperidol to 5 mg daily and 10 mg QHS Venkata Zhao meets criteria for acute level of care. Diagnostic Impression w/ Differential Diagnosis Psychiatric Diagnoses (including Personality Traits/Disorders): - bipolar I disorder, current episode manic with psychotic features ?? Other Medical Conditions: - NIA on CPAP,??class 3 obesity, pre-diabetes vs. Diabetes - Vit D deficiency Plan: Legal status: Involuntary; Observation / visual check: Constant (direct); Current locus of harm: 3 - group psychotherapy - encourage exercise - therapeutic milieu Manic episode with psychotic features: -??Discontinue trazodone 100mg at bedtime (09/22/20) - Increase haloperidol from 5 mg BID to 10mg at bedtime (09/27/19) ?? Health maintenance: - CPAP overnight for NIA - Cholecalciferol tab 1000U qdaily Current Scheduled Medications: ??? Cholecalciferol (Vitamin D3), 1,000 Units, DAILY ??? haloperidoL, 10 mg, QHS ??? [START ON 09/28/2020] haloperidoL, 5 mg, DAILY ??? magnesium sulfate, , DAILY Discharge Plan: Discharge pending clinical improvement and establishment of outpatient care KATIUSKA COE MD, MPH PGY 2 09/27/2020 18:39 Cortex available, Cell phone preferred. See treatment team for number. Attending Attestation: I met with and examined Mr. Zhao on 09/27/2020. Treatment plan reviewed with the patient and team.Except as edited using italics and/or addended here, I agree with the findings and plan of care as documented in Dr. Coe's note. The circumstances under which Mr. Zhao was brought to hospital remain a source of injury for him. Some of the hostility that may look to be a function of acute fe could relate to how this eventhas been incorporated into a narrative that predates this episode, one that involves some doubt about self- worth and value and about his role in the relationship (he has been unable to work of late whereas his has been the primary source of financial support for the couple). Increasing frequency of individual and couple's psychosocial treatment will be important to support wellness and to increase the likelihood of adherence to a helpful regimen, which has been an issue in the past. Also im portant will be to support the recognition that psychiatric treatment need not reflect deleteriously on his value. We discussed that behavioral expectations for discharge include 2 nights of >6 hours of sleep and collaborative participation in the treatment team meeting that includes limiting his propensity for interrupting and dismissive avoidance, regardless of their etiology. Edith Bonner MD Attending Psychiatrist Pager [phone] * Kalee Parsons RT - 09/27/2020 0404 EST Respiratory Nocturnal BIPAP/CPAP Heart Rate: (!) 114 BPM, Resp: 18, SpO2: 96 %, Patient was placed on Device Type: Resmed full faced large mask. Settings were cpap auto-titrate 15/5 with no PS. Pt tolerating well Comments: RT HOMERO 09/27/20 * Sonia Martinez MD - 09/26/2020 5565 EST Inpatient Psychiatry Post-Fall Assessment S: Please refer to progress note dated 09/26/2019 time stamp 14:46 for initial post-fall assessment. Venkata fell approximately 1350 today after soaking his feet in Epsom salts. He fell on his back/bottom and did not hit his head during this fall. I re-assessed this patient approximately 18:30 as a code 8 was called for Mr. Zhao's behavioral dysregulation, please see IEP separate note. At the time of re-assessment, he denied physical pain or other symptoms related to his fall. ROS: Continues to deny symptoms related to this fall, pt was ambulating without difficulty O: Vitals: 09/25/20 0920 09/25/20 1910 09/26/20 0010 09/26/20 1400 BP: 135/72 (!) 145/75 139/82 BP Cuff Location: BP Patient Position: Sitting Sitting Sitting Pulse: 93 98 98 Resp: 18 18 18 Temp: 36.9 ??C (98.4 ??F) 37.1 ??C (98.8 ??F) TempSrc: Temporal Temporal SpO2: 96% Weight: Height: General: Awake, alert, ambulating around unit Given ongoing behavioral dysregulation and posturing, full physical exam was deferred at this time A: 35 y.o. male had a witnessed fall in patient room on 09/26/2020. Patient was found on the floor,did not have a loss of consciousness, and did not have trauma to his head. Examination does not reveal focal neurological findings, patient is not on anticoagulant medication, there is not evidence of skull fracture, and there are not other risk factors for head injury, so CT head is not indicated. There is not any other suspected injury, so other imaging is not indicated. SONIA MARTINEZ MD 09/26/2020 18:58 Resident PGY-1 * Sonia Martinez MD - 09/26/2020 1839 EST Brief Psychiatry Progress Note Patient's behavior was escalating throughout the day. This was the third time I met with Venkata forbehavioral dysregulation today. The first two were after he made requests to use the phone despite being on phone restrictions. On this instance, I was paged at 1824 for him posturing with fists clenched and yelling at staff that his his needs were not being met and questioned what he was doing here after he was not given a remote that he requested. A code 8 was subsequently called, he walked to his room and slammed the door. I met with the patient at 1826. Patient states he was a 13 when he came in and now he is an 11. He requested PRN medications.?? Mental Status Exam:??Patient standing in hallway. Psychomotor agitation, pacing the unit. Speech isspontaneous, loud. Alert and oriented. Mood is an 11. Affect is labile, disinhibited, irritable. Thought process disorganized, flight of ideas. Thought content with questioning what the purpose of this admission is. Does not endorse perceptual changes and exhibits no obvious responses to internalstimuli. Impulsivity high. Insight low. Judgement poor.? At this time, patient willingly accepted PO haldol 5, benadryl 50??and did not require emergency involuntary procedure. * Sonia Martinez MD - 09/26/2020 1446 EST Inpatient Psychiatry Post-Fall Assessment S: Patient had his feet in an Epsom salt in his room, had gotten up to stand with one foot placed on his bed and one foot in the salt bath and had fallen from the bed to the floor landing on his backand buttocks. This fall happened at 1350. This was a witnessed fall as he was on constant observation. He did not hit his head in the fall. Immediately after the fall, there were no signs of change in mental status, orientation, or level of consciousness. He denied pain to where he landed. He denies numbness or tingling in his legs. He was able to ambulate immediately after the fall. ROS: Patient denies headache, amnesia, nausea, vomiting, chest pain, shortness of breath, numbness/tingling, and weakness. O: Vitals: 09/25/20 0920 09/25/20 1910 09/26/20 0010 09/26/20 1400 BP: 135/72 (!) 145/75 139/82 BP Cuff Location: BP Patient Position: Sitting Sitting Sitting Pulse: 93 98 98 Resp: 18 18 18 Temp: 36.9 ??C (98.4 ??F) 37.1 ??C (98.8 ??F) TempSrc: Temporal Temporal SpO2: 96% Weight: Height: General: Awake, alert, no apparent distress. Pulmonary: Breathing regular and non-labored. HEENT: Head atraumatic Extremities: No obvious trauma or deformity; major joints are non-tender to palpation. Mental Status: Alert and oriented x 3, answers questions appropriately, speech fluent, no dysarthria or aphasia, naming/repeition intact. Cranial Nerves: Visual acuity grossly intact, EOMI, PERRL, no facial asymmetry, tongue midline, palate elevates symmetrically, shoulder shrug is full strength. Motor: Normal bulk and tone, no abnormal movements, grossly full and bilaterally symmetrical strength and tone in upper and lower extremities. Sensory: Grossly intact to touch in all extremities. Cerebellar: [id number] and rapid alternating movements intact. Gait: Normal based gait and stride without ataxia. A: 35 y.o. male had a witnessed fall in patient room on 09/26/2020. Patient was found on the floor,did not have a loss of consciousness, and did not have trauma to his head. Examination does not reveal focal neurological findings, patient is not on anticoagulant medication, there is not evidence of skull fracture, and there are not other risk factors for head injury, so CT head is not indicated. There is not any other suspected injury, so other imaging is not indicated. Patient will be reassessed in 4 hours per hospital protocol. SONIA MARTINEZ MD 09/26/2020 14:46 Resident PGY-1 * Claire Green PsyD - 09/26/2020 0754 EST 09/26/2020 ATTENDING NOTE HISTORY: 24 hr events were reviewed and patient's case was discussed in interdisciplinary team rounds. Venkata has been increasingly disorganized. He was redirectable following a conflict with a peer. He has 4/10 anxiety, depression, and pain. He accepted PRN ativan yesterday. He is accepting medication. He slept 1.75 hours in the 24 hour period. Patient Vitals for the past 24 hrs: BP Temp Temp src Pulse Resp 09/26/20 0010 -- -- -- -- 18 09/25/20 1910 (!) 145/75 36.9 ??C (98.4 ??F) Temporal 98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 the 1:1 was using, and Venkata grabbed the [place] thinking it was his cell phone. After multiple attempts he was redirected and 1:1 kept computer. Venkata continuing to walk the halls tapping on windows, trying to enter nurses station, and being intrusive. PRN's: Tylenol 500 mg oral at 0829 for 3/10 back pain, with good effect decreasing pain to 2/10 Vistaril 25 mg oral at 1050 Tylenol 500 mg oral at 1552 for 4/10 headache pain, with good result decreasing pain to 2/10 Haldol 5 mg oral at 1752 Ativan 1 mg oral at 1752 * Plan of Care - Deya Durham, ANTONI - 09/27/2020 0154 EST Data: Assumed care at 1930 Patient asleep at start of shift. 2308 pt administered PRN medication for anxiety as ordered. 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 0530 prn 1 mg Ativan PO for anxiety administered as ordered. Action: Medications given as ordered and per protocol. No changes in mood or behavior noted. Checksas ordered. Clustered care. Environment for sleep promoted. Response: Will continue to monitor for changes in mood, behavior and safety. Pt is resting comfortably in bed, all needs meet. Pt slept for 1.75 hours this shift. Pt slept for 4.25 hours in the last 24 hours. Deya Bernal RN 09/27/2020, 1:54 * Plan of Care - Deya Durham RN - 09/27/2020 0014 EST Data: Assumed care at 1940 on 09/25/20. Patient standing in door of room with 1:1 observer at start of shift. 0601 patient administered Ativan PRN for anxiety. Increase stimulation on unit. Action: Medications given as ordered and per protocol. No changes in mood or behavior noted. Checksas ordered. Clustered care. Environment for sleep promoted. Response: Will continue to monitor for changes in mood, behavior and safety. Pt is resting comfortably in bed, all needs meet. Pt slept for 3 hours this shift. Pt slept for 4.75 hours in the last 24 hours. Deya Bernal RN 09/25/2020, 19:58 * Plan of Care - Lorenza Tim RN - 09/26/2020 1553 EST [id number] Problem: Daily Care Plan Goals Goal: Care Plan Documentation 09/26/2020 0754 by Lorenza Tim, RN Outcome: Ongoing Assumed care at 0700. Venkata presents with disorganized thoughts, flight of ideas involving thingsyou can't see or hear, it's not for you. His attempt to explain his ideas was a mismatch of words and thoughts, and garbled sentences. Venkata was posturing with male patient who was having a code, and was able to be redirected into his room. He endorsed anxiety, depression, A/VH, and pain of 4/10; he denied SI/HI. Requested/received Tylenol 500 mg oral at 0908 with his AM medication. Venkata reported good effect from the Tylenol, stating he had no pain, none.. New order for Vistaril 25 mg oral PRN, given at 1323 with reported good effect a decrease in anxiety. Jamil Thornton foot soak ordered and offered to patient, who soaked his feet for 6 minutes before sliding onto the floor onto his butt. This was a witnessed fall by his 1:1, who collaborated his description of landing on his butt and immediately getting up. Dolphin Researcher asked if he wanted to continue soaking his feet, he replied no I want to go to group; Venkata went to group for approximately 10 minutes. Vital signs post fall: 139/82, 98, 18, 96%, 37.1 Venkata's Ai called and patient was given phone, which resulted in his giving medical underwriter permission to talk to her (see note about conversation). At 1544 staff reported to medical underwriter he had called hiswife while supervised, asked her to bring his phone (which he had been told could not happen while on restrictions), he then asked her to come and get him. He became agitated, yelling obscenities at her, and calling her a cunt. Phone restrictions reinstated by nursing discretion. Venkata continuedto escalate demanding to use the phone. Dolphin Researcher initiated conversation about the importance of support groups and trusting the ones who love us. After asking to use the phone, demanding to use the phone, and escalating agitation, a code was called by accident. On-call provider responded and talked with patient deciding it might decrease his anxiety/frustration/agitation to be allowed to call his . A few moments into the call he started yelling Do I have a job on Sunday, when asked he handed the phone to medical underwriter. Dolphin Researcher explained to her that he had been changed to Involuntary status and could not leave. Explained to Venkata his had nothing to do with his phone restriction and she could not bring his cell phone or come and get him because he was changed to Involuntary yesterday. He was given Ativan 1 mg oral at 1708. He persisted in demanding to use the phone, when medical underwriter went into the milieu to speak to another patient he was talking to his on the phone, he told medical underwriter she called him baby, and asked if he had burned any bridges today, medical underwriter told him no, that she loved him. He told medical underwriter he wanted his included in his care. After hanging up the phone, he redundantly asked is this a meeting?. He then asked medical underwriter to walk the algaaciq with him, then demanded a PRN, he could not accept he had been given anAtivan 17 minutes earlier, and was offered a Vistaril, which he accepted at 1725. He again asked ifhe had burned any bridges today and again was told no by medical underwriter. He announced he was going to his room to eat his dinner. Venkata began posturing and yelling at end of panther burn, code 8 called at 1824, see CON. PRN's: Tylenol 500 mg oral at 0846; decrease in pain to 2 Vistaril 25 mg oral at 1323 Tylenol 500 mg oral at 1323 ; decrease in pain to 0 Ativan 1 mg oral at 1641 Ativan 1 mg oral at 1708 Vistaril 25 mg oral at 1724 Ativan 1 mg oral at 1725 Haldol 5 mg oral at 1832 Benedryl 50 mg oral 1832 * Plan of Care - Lorenza Tim RN - 09/26/2020 1358 EST Post Fall BHARGAVI Note Data: At 1350, Venkata was sitting in his chair doing an epson foot soak and slid out of the chair onto his butt on the floor. This was witnessed by his 1:1, who collaborated he did not hit his head. Initial assessment Vital Signs BP: 139/82 Pulse: 110 Heart Rate: Resp: 18 Temp: 37.1(98.7) Post Fall Assessment - head injury factors * Level of Consciousness: Alert and oriented X 3. Dr. Macias @ 1026. Roberto the charge nurse notified @ 7981. Action: Patient immediately stood up stating I landed on my butt, I'm okay. Patient refused to sit down stating, I'm going to group now. Patient denied pain. Response: Venkata continued to deny pain or discomfort, reported the Vistaril decreased his anxiety and he felt better. LORENZA TIM RN 09/26/2020 13:59 * Plan of Care - Lorenza Tim RN - 09/26/2020 0754 EST Venkata gave medical underwriter permission to talk to his , as witnessed by Sandra Davis his 1:1. reported he was started on Abilify 5 mg right after they started dating in 2015, and was doingwell. When her Dad in June 2020, it was hard on Venkata and his delusions started again. His depression, stress, and anxiety cause insomnia, after three nights without sleep he becomes delusional. When this happens the Trazodone does not help him sleep. He did improve but house hunting recently increased the triad of stress/anxiety/depression, causinginsomnia and then delusions. She states that if he doesn???t sleep for 3 nights he becomes delusional and it has been this way since 2015. She also stated that the Abilify was working, but his depression and anxiety were not being treated. She would like him to be treated for his depression and anxiety, feeling that is the missing link in his treatment. She also reported he does not see a psychiatrist, which he would benefit from; he is managed by [facility]. He sees a therapist every two weeks. She said Venkata called her last night at 2330 to tell herhe loved and missed her, and that had not happened in a while. Previous Home Medications: Abilify 5 mg Daily reports initiated in 2016 Trazodone 100 mg Bedtime Ativan 1 mg PRN Dolphin Researcher agrees with , as Venkata has reported 4/10 depression and anxiety daily. Also that the treatment team could set Venkata up with a psychiatrist and other services he could benefit from. * Plan of Care - Lorenza Tim RN - 09/25/2020 1053 EST Problem: Daily Care Plan Goals Goal: Care Plan Documentation Outcome: Completed for this shift Venkata reported anxiety of 1/10, depression 7/10 and denied other psychiatric symptoms; his pain was reported as 4/10 in his lower back. He requested and was given Ativan 1 mg oral at 0913 with moderate effect. Dolphin Researcher suggested yoga stretches for lower back pain and he replied, I am developing anadaptive program in yoga, medical underwriter asked which form of yoga, and he said I could bring him information. Printed material from [employer]. Patient reported decrease in anxiety from Ativan while walking the gonsalez with 1:1 staff. Venkata cameto the side window requesting something for head and back pain, both 4/10; Tylenol 500 mg oral given at 1308 with good effect, reducing his pain to 1/10 both areas. He attended and participated in the 1:30 group on Processing, then played cards with peers. Venkata's 1:1 reported he was calling random people by giving the operator assistant i cementing made up numbers, and oncesaid Call my Grandmother to the operator assistant i cementing. New Order for restricted phone use. When taking vital signs at 1850, patient displayed disorganized thoughts asking if his Grandmother was here, what time was his room change, and repeated a couple of things medical underwriter said. Requested/received Ativan 1 mg oral and Tylenol 500 mg oral at 1910 for anxiety and right knee pain both 4/10. Venkata started repeating, going down for some ice, going down for some ice... multiple times. * Psych Involuntary Exam - Ti Rodarte MD - 09/25/2020 0929 EST Second Physician (Psychiatrist) Certification I. IDENTIFYING INFORMATIONS Patient Name: Venkata Zhao Date of : 1985 Address: [address] [place] [id number] Patient???s Current Location: [address] Referred by: Crisis Date of Exam: 09/25/20 Time of Exam: 11:09 II. PRESENTING PROBLEM (HISTORY): According to Dr. Irizarry's H&P, dated 20: 35 y.o. man with a history ofbipolar 1 disorder, unspecified psychotic disorder, brief psychotic disorder, unspecified anxiety, and at least three prior psychiatric hospitalizations who presented to the ED via his due to concern for active fe/psychosis. The patient demonstrates numerous symptoms of fe and psychosis,including distractibility, insomnia, increased energy and goal- directed activities, flight of ideas, talkativeness, trying to spend more money, disorganized tangential thought process, and paranoid/delusional thought content. In the setting of prior similar episodes and a diagnosis of bipolar I disorder, it is likely that Mr. Zhao is currently experiencing a manic episode of bipolar I with psychotic features. In the setting of daily cannabis use, cannot rule out the possibility of substance-induced fe/psychosis, although this may be less likely. Signs and symptoms of depression, anxiety, OCD, PTSD, and personality disorder are not endorsed or elicited on exam. The patient meets criteria for inpatient psychiatric hospitalization and may meet EE criteria given his extreme disorganization, intrusive behavior with his at home, and prior instances of unsafe behavior during manic episodes (eg. walking in the middle of a highway). He has therefore been admitted to psychiatry, currently on a voluntary basis, for acute safety and stabilization, medication management, and coordination of outpatient resources. III. EXAM: a) Orientation: Grossly oriented b) Cooperation with Interview: engages readily c) Mood: tired d) Affect: on-edge, irritated, neutral e) Thought Process, Content and Organization: disorganized, [id number] f) Thoughts/intent/plan of harm to self: not reported g) Thoughts/intent/plan of harm to others not reported h) Behavior indicative of inability to care for self: not currently able to express himself clearlyenough to articulate how he might care for his basic daily needs. IV. ASSESSMENT/DIAGNOSIS: 35 y.o. man with a history of bipolar disorder, exhibiting unsafe behaviors, disorganized, necessitating hospital level of care which he is not agreeable to. I certify that I have today examined this patient Venkata Zhao, and in my opinion he is a person in need of treatment. I base this opinion on my own examination and on a review of the assessment done by the physician who initiated the EE process. I have made the statements in this certificate under the pains and penalties of perjury. Electronically signed by Ti Rodarte MD Date: 09/25/2020 Time: 11:09 Certifying Physician Signature Ti Rodarte MD Certifying Physician Name (please type) Certifying Physician Address: [facility] [[address] [place] [id number]] * ED Consult - Carol Ellis - 09/25/2020 0532 EST Adobe Flex Developer Initial Assessment Note Admit Date: 09/21/2020 Date of Consult: 09/25/2020 Psychotic Presenting Information: 1. Personal Information (Proposed patient's age, gender, marital status, residence, ethnicity, race, nationality, employment information, and any other relevant personal information.): Client is a 35 year old male who lives with his in [place]. He is employed part-time. 2. Location of Assessment (Where did the applicant meet and interview the proposed patient.): [facility], Inpatient Psychiatry, [place] [address]. 3. Familiarity with Proposed Patient and Other Relevant Information (Include information onalternatives to hospitalization, etc.): Client is known to [facility] and [facility] from prior encounters. Most recently, client was assessed by [facility] staff on September 20, 2020 and [facility] 21, [facility] Today's encounter is in the context of a request for consideration of involuntary status. Client is diagnosed with bipolar 1 disorder and currently supported with outpatient therapy. At the time of his initial admission (09-21-2020, NAVEED MM) client's therapist was in full support for the need for higher level of care. Though client's treatment team does not feel that he is safe or ready to discharge, client has maderepeated requests to discharge against medical advice. The most recent was at approximately 11:00 PM, September 24, 2020. Client was seen by inpatient psychiatry to encourage continued stay but at this point and beyond, client's behavior escalated to such a degree as to call for crisis assessment. Client continues to refuse continued stay though he has been disorganized, physically posturing and often tangential and at times nonsensical in conversation. 4. Mental Status Examination (Include information about the proposed patient's appearance, attitude, behavior, mood, affect, speech, thought process and content, cognition, insight, judgment, neuro-vegetative symptoms, and any other relevant information about theproposed patient's mental status. Quote proposed patient if possible.): Client is initially resistive to meet with this medical underwriter. He is in bed with C-pap machine and though aroused takes considerable time to engage and respond with clinician. Client's mood is initially irritable later angry with dynamic of intimidation. Speech is pressured and thought process impaired. Client perseverates on his need to leave and in the midst of the assessment arises from his bed to doso then leaving the room. Thought content is disorganized and tangential It's a unique day. There's a special surprise from someone in my past. If it were someone from [place], it would be [place]. Please don't get in the way of anything I may say or I'll get lost. Insight is poor and judgement also poor. In the context of the assessment, client became increasingly agitated and increasingly intrusive regarding social distance. At one point as clinician moved out the door, client moved toward clinician who backed away and he then moved out in the hallway. Client first postured by elana jurado right next to a nurse who was also in the hallway. He later appeared to charge toward this medical underwriter though was able to be contained by members of security staff who had been summoned due to escalation in behaviors. 5. Threatening or Dangerous Behavior (Provide details, including time, place, witnesses, surrounding circumstances, and any other relevant information. Quote proposed patient if possible.): Client has a history of fe with associated increase in behaviors which make others concerned forsafety. Client also has history of behavior that places him in danger in the throes of a full manicepisode. Client was involuntarily hospitalized in 2012 when he was found to be walking barefoot on [address] searching for the [employer]. Client was also assessed by the crisis team in 2017 (NAVEED VIRK) in the throes of another manic episodeduring which he became increasingly disorganized with lack of sleep and intrusive sometimes irritable behaviors that caused a roommate to fear for safety which led to her moving from the premises temporarily. Client was eventually agreeable to voluntary admission though at the time the fire crew specialist felt client would meet criteria for establishment of warrant. Earlier this week (09-21-2020) client's reported that during the previous night, client blocked her from getting her phone with his body as she feared for her safety. Client's reported thatthe behaviors associated with current decompensation mirrored prior episodes requiring hospitalization. Though initially voluntary for admission, client has made several requests to discharge against medical advice. Tonight, he dressed in full protective gear (snowsuit) and came to the nursing station somewhat hostile and uncooperative stating intent to leave. He actively postured toward the residentpsychiatrist and another member of the unit staff. Psychiatry described client with labile mood andtangential, illogical thinking. Thought content was at times bizarre. When psychiatry attempted to have further dialogue with client postured in a manner which caused her to fear for safety and she left the room. Client then stated, you'll see the exhibition I give when I'm in seclusion. Following psychiatry's departure, client then stripped naked and began running around the perimeterof the entire psychiatry unit. He was eventually able to be coaxed back into his room and clothed. As noted above, in the context of this crisis assessment, client's irritability increased as did his intrusion into personal body space. This medical underwriter was somewhat unnerved when he positioned his body between myself and the nurse next to me. 6. Eyewitnesses (Provide names and contact information for anyone else who saw the threatening or dangerous behavior.): Deya Durham RN, [facility], [facility], . Sole Flores RN, [facility], [place] [address], . Kenneth Marroquin RN, [facility], [place] [address], [phone]. 7. Other Neurological Issues (List other neurological or developmental issues that affect the proposed patient's mood or mental status, including brain injury, disease, or developmental disability.): None known. 8. Substance Use (If known, list all substances recently used by the proposed patient prior to thisapplication and provide a general summary of current and past substance abuse.): Client has reported no use of substances in the past month and in the context of inpatient stay hashad no access to means. 9. Criminal History (List any known past criminal behaviors where charges were brought, including any current criminal charges pending against the proposed patient.): Client has a past history of DUI and has also been charged with driving with a suspended license. 10. Need for Hospitalization (Provide a recommendation for disposition. Explain why theproposed patient needs hospitalization and cannot receive adequate treatment in thecommunity.): Client's current psychiatric crisis in many respects mimics earlier episodes one of which placed him at risk of grave and potentially lethal harm. Client has also manifest intrusive and aggressive behaviors which have led others to fear for their safety. Client's level of disorganization with co-occurring poor judgement and level of risk require his continued hospitalization for stabilization. Substance Use (if applicable): See above. Relevant Psychosocial Information: Client lives in [place] with his . 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 Mental Status Appearance: Disheveled Attitude: Hostile Behavior: Psychomotor Agitation Pressured Mood: Irritable and Angry Sleep Pattern: Difficulty Falling Asleep and Difficulty Staying Asleep Appetite: Increased Appetite Affect: Expansive Thought Process: Tangential Perception: No Disturbance Noted Cognitions: Alert and Oriented Insight: Poor Judgement: Poor Concentration: Poor Orientation: Oriented times three Risk Assessment Suicidality: Low Homicidality: Moderate risk of aggression if not stabilized on medication Clinical Interpretation: Client is determined to meet EE status. See above. Plan: The plan for this patient is: EE Adult Consultation with: Dr. Anuradha Ellis Adobe Flex Developer [facility] * Plan of Care - Deya Durham RN - 09/25/2020 0047 EST Data: Assumed care at 2330. Patient in room with provider at start of shift. Action: Ativan, Tylenol and Melatonin given as ordered and per protocol. Provider up to look at patients knee. Self reported injury to right knee. States he fell but felt okay. 0240 Crisis produce production team member in with patient for evaluation. Checks as ordered. Clustered care. Environment for sleep promoted. Response: Will continue to monitor for changes in mood, behavior and safety. Pt is resting comfortably in bed, all needs meet. Pt slept for 0.5 hours this shift. Pt slept for 1.75 hours in the last 24 hours. Deya Bernal, RN 09/25/2020, 0:47 * Psych Involuntary Exam - Anuradha Hyde - 09/25/2020 0041 EST FORM NO. [id number] Revised: 06/2014 PHYSICIAN'S CERTIFICATE EMERGENCY EXAM NOTE TO PHYSICIAN: If you are considering the proposed patient's admission to a hospital: To complete this form you must be a board-certified psychiatrist, a resident in psychiatry, or a licensed physician designated by the Commissioner of Mental Health as appropriate to complete Physician's Certificate: ONLY THESE PHYSICIANS MAY ADMIT PROPOSED PATIENTS INVOLUNTARILY TO A HOSPITAL Complete Sections I and II. SECTION I I, the undersigned, hereby certify that I am a resident in psychiatry.. I further state that I am duly licensed to practice medicine in the [facility], and I have made careful examination of the mental condition of Venkata Zhao Of [address] [place] [address] [facility], and that I am of the opinion that this person is a mentally ill person in need of treatment. The following information concerning the proposed patient is submitted: DATE OF : 1985 [address] OF : SEX: male MARITAL STATUS: NAME AND ADDRESS OF SPOUSE/PARTNER, Yes; [address] [place] [address], [facility] Can the patient speak and understand Togolese? yes NAME OF FATHER: ADDRESS: (If , so state) MAIDEN NAME OF MOTHER: ADDRESS: (If , so state) 1. The following data (A-D) is not required but should be provided if appropriate and available: (A) Alien Registration No: (B) V.A. Claim No: (C) Medicare No: (D) Medicaid No: 2. How long have you known the patient? Approximately 1 hour 3. Does the patient have any serious physical illness(es)? no 4. Has the patient been physically injured in the recent past? no 5. List current medications and any drug sensitivities Vitamin D3 1000 units daily, haloperidol 5 mg BID, lorazepam 1 mg Q6H PRN, melatonin 6 mg at bedtime PRN 6. Full name and address of guardian, if any, nearest relative or friend Relationship to/interest in patient SECTION II In my opinion this proposed patient Venkata Zhao is (A) mentally ill and (B) poses a danger of harm to him/herself or others, and (C) should be admitted immediately to a hospital for an emergency examination (second certification). I believe the proposed patient meets all three of the above criteria and base this opinion on the facts outlined below.(NOTE: For each of these three criteria, it is required that the physician identify separately facts observed by him or her and those reliably reported to him or her by others. In each instance, the source of the information must be identified.) Tentative Diagnosis: Acute fe with psychotic features 7. What facts have you observed and/or were reliably reported to you (identify separately) that lead you to believe that the proposed patient has a mental illness? What did the proposed patient say? What did the proposed patient do? I have observed the patient to be hostile and uncooperative when demanding to leave hospital admission. He was dressed in a neon yellow snowsuit indoors. He had increased psychomotor activity, and aggressive posturing toward myself and another member of staff, Lonnie Cabezas. His affect was hostile and irritable. His mood was labile, from tearful to irritable and hostile. His thought process was tangential and illogical, that he had come to the hospital because it was his 's birthday, andthat he could stay at [facility] and home. Thought content was bizarre and not reality-based, am Iworking tonight? a zone a zone a zone a zone. It was later reliably reported to me by [facility] [place] [address] staff that the patient removed all his clothes after our interview and ran through the unit hallways until he tripped and skinned his knee. 8. What facts have you observed and/or were reliably reported to you (please identify separately) that lead you to believe that the proposed patient poses a danger of harm to him/herself or others asa result of the mental illness? What did the proposed patient say or do? To whom, specifically, is the proposed patient a danger and in what way? Mr. Zhao demanded to leave [facility] inpatient psychiatry, where he is admitted voluntarily. Upon myevaluation, he was insistent upon leaving immediately and unwilling to discuss concerns that his had reported upon his initial hospital evaluation that she felt unsafe in the home due to Mr. Zhao's mental state. He then quickly became irritable, standing up quickly and posturing aggressively at me such that I feared for my safety and exited the room. Mr. Zhao then stated you'll see after the exhibition I give when I'm in seclusion while making intense eye contact with me. He did not respond to my statement that I felt that he had made a threat to my safety. He exited his room andwent to the exit monique port, where he postured toward another staff member and demanded to leave. 9. The law requires the certifying physician to consider available alternative forms of care and treatment for the person's needs, without requiring hospitalization. List all steps taken in exploringalternative forms of care andtreatment. (NOTE: Discussing available alternatives with a customer development representative of an authorized screening agency may assist the physician in complying with this requirement. Screeners can be contacted 24 hours a day. For a current listing of the designated screening agents, call the Admissions Office at the [facility], telephone number [phone].) Danger toward others such that no less restrictive means than inpatient hospitalization are sufficient 10. What medication(s) or treatment(s) were administered prior to transporting the patient to the hospital for an emergency examination? N/a; patient is accepting of prescribed inpatient medications as scheduled Time administered: 11. Name of person in the hospital Admissions Office ([phone]) you spoke to: Signed under the penalties of perjury pursuant to 18 V.S.A. ?? 7612(e)(1) 09/25/2020 Date of Examination Electronically signed by Anuradha Hyde MD 0:41 Anuradha Hyde MD Time of Examination Print or Type Physician's Name [address] [place] [id number] Physician's Address [phone] Physician's Telephone Number PHYSICIAN'S NOTE: The Application Form and Sections I and II of the Physician's Certificate must accompanythe proposed patient to the hospital for an emergency examination. When these forms are completed, the proposed patient may be transported to the hospital. I hereby waive any right I have to receive a copy of the notice of hearing from the Court pursuant to 18 V.S.A. ?? 7613. I understand that despite this waiver I may be called to testify at a hearing involving the above-named proposed patient. Anuradha Hyde MD * Plan of Care - Sneha Flores RN - 09/24/2020 1732 EST Problem: Daily Care Plan Goals Goal: Care Plan Documentation Outcome: Ongoing Flowsheets (Taken 09/24/2020 1600) Area of Focus: Safety Goal This Shift: pt will remain free from emergency events on the unit this shift Note: [id number] DATA: Patient in his room at start of shift. Denies SI/HI/SH and pain. Spent time in milieu playingchess and socializing with peers. Expressed anxiety and asked for medication. At 2200 he presented at team station dressed in protective yellow reflective work gear top to bottom. States he wants hisdischarge papers. ACTION: MD called to speak with patient regarding desire to discharge. Advised patient MD will speak with him as soon as she can. Ativan given for anxiety, patient stated it worked well. Provided 1:1therapeutic support, assessed patient for safety and pain. Administered scheduled/and or PRN medications. Encouraged ADLs and participation in groups. Kept environment clean and clear of clutter. Recorded hours slept. RESPONSE: Patient compliant with medications. Able to make needs known. Behavior in control. Patient has remained safe on the unit this shift. * Plan of Care - Trisha Guzman RN - 09/24/2020 1428 EST Problem: Daily Care Plan Goals Goal: Care Plan Documentation Flowsheets (Taken 09/24/2020 0918) Area of Focus: Safety Goal This Shift: Pt will remain safe on unit this shift Note: Data: Pt continues as voluntary level 3 on constant observation. Mixed mood, blunted affect, good eye contact during interactions with RN. Thought process difficult to follow. Pt denies SI/HI and pain this shift. This medical underwriter assessed for physical pain. Pt stated just in my anus. Pt rated pain 0/10. Pt reported increased anxiety at 0918 and 1229. Ativan given with some effect (see MAR). Haldol 5mg given per order at 1245 with effect. Compliant with medications as ordered. Action: Safety maintained through observations as ordered. 1:1 offered, received. Assessed for mood, affect, pain. Ongoing support offered by RN throughout shift. Medications administered as ordered (see MAR). Response: Pt interacted appropriately with staff, ambulatory on unit. Able to make needs known. Behavior remained in good control. TRISHA GUZMAN RN 09/24/2020 14:19 * Plan of Care - Kenneth Marroquin RN - 09/24/2020 0632 EST Problem: Daily Care Plan Goals Goal: Care Plan Documentation 09/24/2020 06 by Kenneth Marroquin RN Flowsheets Taken 09/24/2020 06 Area of Focus: Safety Taken 09/23/2020 2300 Goal This Shift: pt will remain safe on unit Note: Data: Pt continue to be intrusive, recently received haldol, ativan, and benadryl . Pt continues tobelieve he is a worker on the unit. Action: Redirect patient to go to bedroom throughout shift. Encourage to try to get some sleep using CPAP. Continue ton monitor. Response: Pt agrees to go to room and try to sleep but quickly forgets and continues to walk aroundthe unit pretending to be staff. Kenneth Marroquin RN 09/24/2020 6:27 09/23/2020 2342 by Kenneth Marroquin RN Flowsheets Taken 09/23/2020 2342 Area of Focus: Safety Taken 09/23/2020 2300 Goal This Shift: pt will remain safe on unit Note: Data: Pt observed in room quietly and comfortably laying in bed. Pt denies SI/HI/AVH. Pt becoming increasingly intrusive, agitated with flight of ideas. Pt believes he is a worker at the hospital, with bizarre requests of press releases, insta cart numbers. Action: Pt redirected as needed. Meds admin per NOV. Pt received PRN melatonin, ativan, pt receivedan additional dose of ativan, benadryl, and haldol administered per NOV. Response: Pt continues to walk around unit with bizarre behavior. Less intrusive at this time actively trying to sleep at this. Kenneth Marroquin RN 09/23/2020 23:42 * Plan of Care - Kenneth Marroquin RN - 09/24/2020 0631 EST Problem: Daily Care Plan Goals Goal: Care Plan Documentation 09/24/2020 0627 by Kenneth Marroquin RN Flowsheets Taken 09/24/2020 06 Area of Focus: Safety Taken 09/23/2020 2300 Goal This Shift: pt will remain safe on unit Note: Data: Pt continue to be intrusive, recently received haldol, ativan, and benadryl . Pt continues tobelieve he is a worker on the unit. Action: Redirect patient to go to bedroom throughout shift. Encourage to try to get some sleep using CPAP. Continue ton monitor. Response: Pt agrees to go to room and try to sleep but quickly forgets and continues to walk aroundthe unit pretending to be staff. Kenneth Marroquin RN 09/24/2020 6:27 09/23/2020 2342 by Kenneth Marroquin RN Flowsheets Taken 09/23/2020 2342 Area of Focus: Safety Taken 09/23/2020 2300 Goal This Shift: pt will remain safe on unit Note: Data: Pt observed in room quietly and comfortably laying in bed. Pt denies SI/HI/AVH. Pt becoming increasingly intrusive, agitated with flight of ideas. Pt believes he is a worker at the hospital, with bizarre requests of press releases, insta cart numbers. Action: Pt redirected as needed. Meds admin per NOV. Pt received PRN melatonin, ativan, pt receivedan additional dose of ativan, benadryl, and haldol administered per NOV. Response: Pt continues to walk around unit with bizarre behavior. Less intrusive at this time actively trying to sleep at this. Kenneth Marroquin RN 09/23/2020 23:42 * Plan of Care - Kenneth Marroquin RN - 09/24/2020 0008 EST Problem: Daily Care Plan Goals Goal: Care Plan Documentation Flowsheets Taken 09/23/2020 2342 Area of Focus: Safety Taken 09/23/2020 2300 Goal This Shift: pt will remain safe on unit Note: Data: Pt observed in room quietly and comfortably laying in bed. Pt denies SI/HI/AVH. Pt becoming increasingly intrusive, agitated with flight of ideas. Pt believes he is a worker at the hospital, with bizarre requests of press releases, [employer] cart numbers. Action: Pt redirected as needed. Meds admin per NOV. Pt received PRN melatonin, ativan, pt receivedan additional dose of ativan, benadryl, and haldol administered per NOV. Response: Pt continues to walk around unit with bizarre behavior. Less intrusive at this time actively trying to sleep at this. Kenneth Marroquin RN 09/23/2020 23:42 * Plan of Care - Jesusita Thompson RN - 09/23/2020 1300 EST Problem: Daily Care Plan Goals Goal: Care Plan Documentation Flowsheets (Taken 09/23/2020 1240) Area of Focus: Safety Goal This Shift: Pt will remain safe on unit. Data: Assumed care of patient at 0730. Pt getting in the shower at the start of shift. Pt presents hypomanic, illogical at times with tangential speech. Pt ruminates on his and if she is cheating on him. Denies SI/HI/AVH. Denies any depression. Reports high anxiety and received PRN at 0841, see eMAR. Reports good appetite. Denies any pain or discomfort. Pt used exercise room twice. Pt restless and walks frequently around unit. Pt used phone with staff supervision twice. Medication complaint. Action: Safe environment maintained. Assessed for SI/HI/AVH/pain. Engaged with pt and provided emotional support. Available for therapeutic 1:1. Encouraged pt to continue using positive coping skills. Administered medications as ordered per emar. Response: Pt remained safe on unit. Addendum [id number] Pt continued to pace around unit with 1:1 sitter. Denies SI/HI/AVH. Disorganized, pt having difficulty expressing needs. Pt reported increased anxiety and received PRN ativan at 1641, see eMAR. Reported head pain 3/10, received PRN tylenol, see eMAR. Pt used exercise room. * Psych Treatment Team - Rakan Ferreira., RN - 09/23/2020 0818 EST Psychiatry Multidisciplinary Treatment Plan - Initial Date: 09/23/2020 Time: 8:18 Inpatient Admit Date: 09/21/20 Initial Observation Date (if different): 09/21/2020 Legal Status: Voluntary Estimated LOS: 7 days Infection Control Issue: No DIAGNOSIS: Principal Dx: F31.5 BPAD 1, most recent depressed with psychosis. 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 but current status unclear (he suggests he has been terminated) Note Type: Initial PROBLEM LIST: PROBLEM: Fe Fe target symptoms: elevated/expansive mood, grandiosity, decreased need for sleep, increased speech/increased speed of speech, flight of ideas, distractability and increased goal-directed activity Fe initial goals: reduction in target symptoms, improved impulse control, improved sleep, acceptance of mood stabilizing medication, tolerance to medications and improved judgment PROBLEM: Psychosis Psychosis target symptoms: disorganized speech, disorganized behavior and feeling perplexed Psychosis initial goals: reduction in target symptoms, more organized thought process and acceptance of antipsychotic PROBLEM: Psychosocial problems Psychosocial problems symptoms: losses, economic strain, strained interpersonal relationships and employment problems Psychosocial problems initial goals: reduction of target symptoms, identifying supportive resources, strengthening of supports, implementation of new coping skills and attend groups TREATMENT PLAN: MEDICAL INTERVENTIONS: Psychiatric Evaluation, Daily contact with patient for Evaluation and Management, Daily meeting with multidisciplinary team to review patient's progress and Pharmacological Management MEDICAL EXPECTED OUTCOMES AT TIME OF DISCHARGE: Diagnostic clarification, Adequate control of impulses, Reduction of target symptoms, enough to safely transition to a less restrictive level of care.,Adequate initial clinical response to pharmacological treatment and Insight gained on patterns of ma ladaptive behavior NURSING INTERVENTIONS: Behavioral/health assessment, daily, Assess need for observations, Monitoring of sleep/activity daily, Administer medications as per physicians order, Monitoring side-effects from medications daily, Education (See patient teaching record), Promotion of independence upon everyinteraction, Provision of structure and orientation in the environment of care upon every contact and Ensure safety in the environment of care throughout the 24 hr period NURSING EXPECTED OUTCOMES AT TIME OF DISCHARGE: Patient remains in bed during normal sleep hours, Patient adheres to pharmacotherapy as ordered, Patient reports adequate understanding of medication regimen, Patient out of room, engaged with others during daytime hours, Patient interacts with othersin socially appropriate manner and Patient engages in discharge planning PSYCHOLOGICAL INTERVENTIONS: PROCESS GROUPS: Art therapy, up to 1 hour 2 times per week, Cognitive group therapy, up to 1 hour 2times per week, Group therapy, up to 1 hour 2 times per week and Grief/anger group therapy, up to 1hour 4 times per week EDUCATION GROUP: Up to 1 hour 10 times per week TASKS GROUPS: Up to 1 hour 12 times per week PSYCHOLOGICAL EXPECTED OUTCOMES AT TIME OF DISCHARGE: Accepted responsibility for maladaptive behavior, Accepted grief and loss, Developed coping strategies/skills, Identified stressors, Identified feelings, Improved self- esteem, Increased activity level, Increased affective range, Increased emotional expression, Increased attention span, Increased awareness of self in relation to others, Increased expression of needs, Increased relaxation, Increased motivation, Increased self-control, Increased socialization, Increased tolerance for socialization and Increased knowledge about own illness SOCIAL INTERVENTIONS: Community referral, Discharge planning, Collaboration with outpatient providers, Evaluation of living situation and Collaboration with family/support network if allowed by patient SOCIAL EXPECTED OUTCOMES AT TIME OF DISCHARGE: Adequate housing in place, Outpatient referrals/follow-up appointments in place, Coordination of transportation from hospital to home is ensured, Support network identified, Support network informed of reasons for hospitalization, Client's strengths jack ntified, Improved communication among the support network, Family/couples intervention ensuring safe discharge is completed, Client can articulate strengths and goals and Plan of aftercare communicated to providers and other support network Attending physician statement/signature: Based on the information documented in this Initial Multidisciplinary Treatment Plan and in the medical record, I certify that: ?? This patient meets medical necessity criteria and requires acute inpatient psychiatric treatment, as evidenced by the documentation in this document of the diagnosis, active problems, target symptoms, initial goals, suggested diagnostic studies, interventions and expected outcomes at the time ofdischarge. ?? I hereby certify having a reasonable expectation that this patient has acute medical/psychiatricneeds which will require that he or she receives inpatient services for no less than two midnights. ?? This patient needs, on a daily basis, active treatment furnished directly by or requiring the supervision of inpatient psychiatric facility personnel. Treatment is expected to improve this patient's condition. Edith Bonner MD Attending Psychiatrist PCP:Tremaine Shankar Treatment Team Members RN: BRITTANEY FINNEGAN RN Therapist: Rita Bagley MA, R-DMT, [facility] Website Programmer: LEFTY FERGUSON PharmD: Patient Involvement This Treatment Plan was discussed with the patient/guardian. Attending physician statement/signature: Based on the information documented in this Initial Multidisciplinary Treatment Plan and in the medical record, I certify that: ?? This patient meets medical necessity criteria and requires acute inpatient psychiatric treatment, as evidenced by the documentation in this document of the diagnosis, active problems, target symptoms, initial goals, suggested diagnostic studies, interventions and expected outcomes at the time ofdischarge. ?? I hereby certify having a reasonable expectation that this patient has acute medical/psychiatricneeds which will require that he or she receives inpatient services for no less than two midnights. ?? This patient needs, on a daily basis, active treatment furnished directly by or requiring the supervision of inpatient psychiatric facility personnel. Treatment is expected to improve this patient's condition. Edith Bonner MD Attending Psychiatrist * Plan of Care - Kenneth Marroquin RN - 09/23/2020620 EST Problem: Daily Care Plan Goals Goal: Care Plan Documentation 09/23/2020618 by Kenneth Marroquin RN Flowsheets (Taken 09/23/2020618) Area of Focus: Sleep Goal This Shift: Pt will sleep for 3-4 hrs Note: Data: Pt sleeping on and off throughout shift. Pt complained of mild shoulder pain. Action: Promoted a therapeutic environment facilitating sleep, safety, and wellness. Put lotion on patients left shoulder and massaged it to decrease pain. Pt soon fell asleep after Response: Pt slept 3/24 hrs Kenneth Marroquin RN 09/23/2020 6:20 09/22/2020 2356 by Kenneth Marroquin RN Flowsheets Taken 09/22/2020 2356 Area of Focus: Safety Taken 09/22/2020 2337 Goal This Shift: pt will remain safe on unit Note: Data: Pt in room appropriate dress, mood, affect. Denies SI/HI/AVH, and depression. Endorses anxiety. Pt very forgetful and has poor concentration. Flight of ideas when alone is room. Pt has more logical conversations when addressed by nurse. Pt made sexual inappropriate comments to another patient. Action: Gave pt PRN ativan and melatonin for sleep and anxiety. Given other meds per NOV. CPAP hooked up for patient, promoted a therapeutic environment facilitating sleep, safety, and wellness. Pt addressed about inappropriate comments made to another pt, is aware and understood that it is not appropriate and isn't to make such comments in the future. Pt made aware that medications and nutritional needs are available. Response: Pt receptive to conversation with nurse. No questions comments or concerns at this time. Kenneth Marroquin RN 09/22/2020 23:56 * Psych Safety Plan - Kenneth Marroquin RN - 09/23/2020 0402 EST Individual Safety Treatment Plan 09/23/2020 4:02 Safety Issue/Concern regarding perceived threat: Pt making inapropriate comments to other patient on unit Final Safety Plan with Rationale: Interventions chosen (Check) Environmental and Safety x Nurse to review with patient: what to do when you feel afraid of another patient Frequent observation x Constant observation, continued Relocation of patient to another room Relocation of patient closer to Team Station Discharge or transfer patient Other: Clinical Coping Tool flow sheet updated with newly identified triggers/coping techniques Implementation of a Therapeutic Intervention Strategy Safety Plan for any other patients involved Address contributors of agitation such as physical pain and discomfort Nurse reviewed expectations regarding violence on the unit Offering of sensory modulation items: Identify Teaching patient about use of exercise room/comfort room Patient Debriefing tool (regardless of EIP) Discussed with team members: Other: yumiko Marroquin RN * Plan of Care - Kenneth Marroquni RN - 09/23/2020 0003 EST Problem: Daily Care Plan Goals Goal: Care Plan Documentation Flowsheets Taken 09/22/2020 2356 Area of Focus: Safety Taken 09/22/2020 2337 Goal This Shift: pt will remain safe on unit Note: Data: Pt in room appropriate dress, mood, affect. Denies SI/HI/AVH, and depression. Endorses anxiety. Pt very forgetful and has poor concentration. Flight of ideas when alone is room. Pt has more logical conversations when addressed by nurse. Pt made sexual inappropriate comments to another patient. Action: Gave pt PRN ativan and melatonin for sleep and anxiety. Given other meds per NOV. CPAP hooked up for patient, promoted a therapeutic environment facilitating sleep, safety, and wellness. Pt addressed about inappropriate comments made to another pt, is aware and understood that it is not appropriate and isn't to make such comments in the future. Pt made aware that medications and nutritional needs are available. Response: Pt receptive to conversation with nurse. No questions comments or concerns at this time. Kenneth Marroquin RN 09/22/2020 23:56 * Plan of Care - Kiera Carter RN - 09/22/2020 1823 EST Problem: Daily Care Plan Goals Goal: Care Plan Documentation Flowsheets (Taken 09/22/2020 0930) Area of Focus: Safety Goal This Shift: Pt will remain safe on unit Data: Assumed care of pt at 0730. Constant, voluntary, LUCINA 4. Pt in hallway at start of shift with constant observation. Action: Assessed for pain/SI/HI/AVH. Monitored behavior, mood, affect, safety. Given prn Ativan foranxiety at 0930 and 1530. Given Tylenol for headache after team meeting with pt reporting it was helpful. Attempted to converse with pt, but limited due to pt flight of ideas and tangential verbalizations. Full range of emotions, including laughing at times. Observed using deep breathing independently as a coping tool. Pt stated he felt safe on the unit. Response: Pt denied pain/SI/HI/AVH and no issues noted. Pt behavior is restless slightly intrusive in the morning but re-directable with no intrusive behaviors noted rest of shift. Labile affect withanxiety. Pt breakfast and lunch in room and dinner in milieu; took shower. Pt agreeable to moving to another room and was completed without issue. Met with team and agreed to med changes and have meeting tomorrow that would include his spouse. Safety maintained with pt able to make needs known. * Plan of Care - Julianna Sánchez RN - 09/22/2020 0635 EST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 class. Cutoff = 500 ng/mL Opiates Screen, Ur Negative Screen Negative, Negative Screen 09/21/2020 14:24 EST [facility] Comment: Confirmation testing available upon request. Suitable for medical purposes only. Will not detect all drugs within class. Cutoff = 100 ng/mL Oxycodone Screen, Ur Negative Screen Negative, Negative Screen 09/21/2020 14:24 EST [facility] Comment: Confirmation testing available upon request. Suitable for medical purposes only. Will not detect all drugs within class. Cutoff = 100 ng/mL Propoxyphene Screen, Ur Negative Screen Negative, Negative Screen 09/21/2020 14:24 EST [facility] Comment: Confirmation testing available upon request. Suitable for medical purposes only. Will not detect all drugs within class. Cutoff = 300 ng/mL Urine URINE / Unknown Urine Collect / Unknown 09/21/2020 13:58 EST 09/21/2020 14:07 EST Prince Mcfadden PA-C GEN LAB UNIT COLLECT ORDERABLES Performing Organization Address [facility] de Phone Number [facility] [address] [place] [address] * COVID-19 TEST [facility] PCR (09/21/2020 13:55 EST) Swab ENTIRE NASOPHARYNX / Unknown Swab / Unknown 09/21/2020 13:55 EST 09/21/2020 14:02 EST Prince Mcfadden PA-C MICROBIOLOGY - GENER AL ORDERABLES Performing Organization Address [facility] Co de Phone Number [facility] [address] [place] [address] * COVID-19 TESTING (09/21/2020 13:55 EST) COVID-19 rt-PCR Result Negative Negative 09/21/2020 19:35 EST [facility] Comment: This test has not been FDA cleared or approved. This test has been authorized by FDA under an EUA for use by authorized laboratories. This test has been authorized only for detection of nucleic acid from 2019-nCoV, not for any other viruses or pathogens. This test is only authorized for the duration of the declaration that circumstances exist justifying the authorization of emergency use of in vitro diagnostic tests for detection and/or diagnosis of 2019-nCoV under section 564(b)(1) of Act, 21 U.S.C ?? 360bbb-3(b) (1), unless the authorization is terminated or revoked sooner. Negative results do not preclude 2019-nCoV infection and should not be used as the sole basis for treatment or other patient management decisions. Negative results must be combined with clinical observations, patient history, and epidemiological information. Performed on the [employer] Fusion instrument Performing Lab Mobile [facility] 09/21/2020 19:35 EST [facility] Swab ENTIRE NASOPHARYNX / Unknown Swab / Unknown 09/21/2020 13:55 EST 09/21/2020 14:02 EST Prince Mcfadden PA-C MICROBIOLOGY - GENER AL ORDERABLES [facility] [address] [place] [address] documented in this encounter Visit Diagnoses Diagnosis Bipolar I disorder, current or most recent episode manic, with psychotic features (HCC-CMS)- Primary Bipolar I disorder, most recent episode (or current) manic, severe, specified as with psychotic behavior Bipolar I disorder, current or most recent episode manic, with psychotic features (HCC-CMS) Bipolar I disorder, most recent episode (or current) manic, severe, specified as with psychotic behavior NIA (obstructive sleep apnea) Obstructive sleep apnea (adult) (pediatric) Psychosis (HCC-CMS) Unspecified psychosis documented in this encounter Administered Medications Inactive Administered Medications - up to 3 most recent administrations Medication Order MAR Action Action Date Dose Rate Site acetaminophen (TYLENOL) tablet 500 mg 500 mg, oral, EVERY 4 HOURS PRN, Starting on 09/21/20 at 2035, Until 10/04/20 at 1757, Pain, Routine Given 10/04/2020 13:17 EST 500 mg Given 10/04/2020 7:47 EST 500 mg Given 10/03/2020 16:21 EST 500 mg ARIPiprazole (ABILIFY) tablet 5 mg 5 mg, oral, DAILY, First dose on Sun09/21/20 at 1845, Until Discontinued, STAT Given 09/21/2020 19:41 EST 5 mg benztropine (COGENTIN) tablet 0.5 mg 0.5 mg, oral, 2 TIMES DAILY, First dose on Sun10/01/20 at 2100, Until Discontinued, Routine Given 10/04/2020 8:02 EST 0.5 mg Given 10/03/2020 20:09 EST 0.5 mg Given 10/03/2020 8:55 EST 0.5 mg cholecalciferol (Vitamin D3) tablet 1,000 Units 1,000 Units, oral, DAILY, First dose (after last modification) on Jo-Ann 09/23/20 at 1615, Until Discontinued, Routine Given 10/04/2020 8:02 EST 1,000 Units Given 10/03/2020 8:56 EST 1,000 Units Given 10/02/2020 7:05 EST 1,000 Units diphenhydrAMINE (BENADRYL) 25 mg capsule 1 dose, Starting on 09/26/20 at 1829, Until 09/26/20 at 1832 Given 09/26/2020 18:32 EST 50 mg diphenhydrAMINE (BENADRYL) capsule 50 mg 50 mg, oral, NOW X1, 1 dose, On Jo-Ann 09/23/20 at 2330, Routine Given 09/23/2020 23:25 EST 50 mg haloperidoL (HALDOL) 5 mg tablet 1 dose, Starting on 09/26/20 at 1829, Until 09/26/20 at 1833 Given 09/26/2020 18:33 EST 5 mg haloperidoL (HALDOL) tablet 10 mg 10 mg, oral, AT BEDTIME, First dose on Sun09/27/20 at 2100, Until Discontinued, Routine Given 09/30/2020 20:22 EST 10 mg Given 09/29/2020 20:30 EST 10 mg Given 09/28/2020 20:02 EST 10 mg haloperidoL (HALDOL) tablet 15 mg 15 mg, oral, AT BEDTIME, First dose on Sun10/01/20 at 2100, Until Discontinued, Routine Given 10/03/2020 20:09 EST 15 mg Given 10/02/2020 20:42 EST 15 mg Given 10/01/2020 20:38 EST 15 mg haloperidoL (HALDOL) tablet 5 mg 5 mg, oral, AT BEDTIME, First dose on Sun09/22/20 at 2100, Until Discontinued, Routine Given 09/23/2020 21:29 EST 5 mg Given 09/22/2020 20:09 EST 5 mg haloperidoL (HALDOL) tablet 5 mg 5 mg, oral, NOW X1, 1 dose, On Jo-Ann 09/23/20 at 2330, Routine Given 09/23/2020 23:26 EST 5 mg haloperidoL (HALDOL) tablet 5 mg 5 mg, oral, 2 TIMES DAILY, First dose (after last modification) on Sun09/24/20 at 1300, Until Discontinued, Routine Given 09/27/2020 8:22 EST 5 mg Given 09/26/2020 21:24 EST 5 mg Given 09/26/2020 9:08 EST 5 mg haloperidoL (HALDOL) tablet 5 mg 5 mg, oral, DAILY, First dose (after last modification) on Sun09/28/20 at 0900, Until Discontinued, Routine Given 10/04/2020 8:02 EST 5 mg Given 10/03/2020 8:55 EST 5 mg Given 10/02/2020 7:05 EST 5 mg haloperidoL (HALDOL) tablet 5 mg 5 mg, oral, 2 TIMES DAILY PRN, Starting on Sun09/27/20 at 1744, Until Sun10/01/20 at 1628, Agitation, Routine Given 10/01/2020 9:29 EST 5 mg Given 10/01/2020 2:50 EST 5 mg Given 09/29/2020 15:04 EST 5 mg haloperidoL (HALDOL) tablet 5 mg 5 mg, oral, 2 TIMES DAILY PRN, Starting on Sun10/01/20 at 1627, Until Sun10/04/20 at 1757, Agitation, feeling amped up, more manic, Routine Given 10/03/2020 17:43 EST 5 mg hydrOXYzine (ATARAX) tablet 25 mg 25 mg, oral, 3 TIMES DAILY PRN, Starting on Sun09/26/20 at 1247, Until Sun10/04/20 at 1757, Itching, Anxiety, Routine Given 10/04/2020 2:54 EST 25 mg Given 10/03/2020 12:55 EST 25 mg Given 10/03/2020 4:32 EST 25 mg hydrOXYzine (ATARAX) tablet 50 mg 50 mg, oral, NOW X1, 1 dose, On Sun09/22/20 at 0300, Routine Given 09/22/2020 2:45 EST 50 mg LORazepam (ATIVAN) tablet 1 mg 1 mg, oral, EVERY 6 HOURS PRN, Starting on Sun09/21/20 at 2035, Until Sun10/01/20 at 1628, Anxiety, or Agitation, Routine Given 09/30/2020 22:41 EST 1 mg Given 09/29/2020 22:21 EST 1 mg Given 09/29/2020 10:44 EST 1 mg LORazepam (ATIVAN) tablet 1 mg 1 mg, oral, NOW X1, 1 dose, On Sun09/23/20 at 2330, Routine Given 09/23/2020 23:26 EST 1 mg LORazepam (ATIVAN) tablet 1 mg 1 mg, oral, NOW X1, 1 dose, On Sun09/24/20 at 0915, Routine Given 09/24/2020 9:18 EST 1 mg LORazepam (ATIVAN) tablet 1 mg 1 mg, oral, NOW X1, 1 dose, On Sun09/26/20 at 1730, Routine Given 09/26/2020 17:17 EST 1 mg LORazepam (ATIVAN) tablet 1 mg 1 mg, oral, EVERY 6 HOURS PRN, Starting on Sun10/01/20 at 1626, Until Sun10/04/20 at 1757, Anxiety, Routine Given 10/04/2020 7:47 EST 1 mg Given 10/03/2020 5:39 EST 1 mg Given 10/02/2020 23:57 EST 1 mg LORazepam (ATIVAN) tablet 1 mg 1 mg, oral, 2 TIMES DAILY PRN, Starting on Sun10/01/20 at 1628, Until Sun10/04/20 at 1757, combined with haldol for when pt is agitated or feeling amped up or more manic, Routine Given 10/03/2020 17:43 EST 1 mg LORazepam (ATIVAN) tablet 2 mg 2 mg, oral, NOW X1, 1 dose, On Sun09/21/20 at 0815, STAT Given 09/21/2020 11:24 EST 1 mg Given 09/21/2020 8:14 EST 1 mg magnesium sulfate (EPSOM SALT) granules topical, DAILY, First dose on Sun09/26/20 at 1315, Until Discontinued, Routine Given 09/26/2020 13:22 EST melatonin tablet 6 mg 6 mg, oral, NOW X1, 1 dose, On Sun09/22/20 at 0300, Routine Given 09/22/2020 2:45 EST 6 mg melatonin tablet 6 mg 6 mg, oral, AT BEDTIME PRN, Starting on Sun09/22/20 at 2045, Until Sun10/04/20 at 1757, Other, insomnia, Routine Given 10/02/2020 21:55 EST 6 mg Given 10/01/2020 22:28 EST 6 mg Given 09/30/2020 20:47 EST 6 mg traZODone (DESYREL) tablet 100 mg 100 mg, oral, AT BEDTIME, First dose on Sun09/21/20 at 2100, Until Discontinued, Routine Given 09/21/2020 23:56 EST 50 mg Given 09/21/2020 21:37 EST 50 mg documented in this encounter Discontinued Medications Medication Sig Discontinue Reason Start Date End Da te therapeutic hand-body (EUCERIN ORIGINAL) lotion Apply topically as needed. 10/04/2020 traZODone (DESYREL) 100 mg tabletIndications:Anxie ty,Psychophysiological insomnia Take 1 Tab by mouth at bedtime. 04/01/2020 10/04/2020 LORazepam (ATIVAN) 1 mg tablet Take 0.5-1 Tabs by mouth 3 times daily as needed for Anxiety. Daily Max: 3 mg 04/01/2020 10/04/2020 ARIPiprazole (ABILIFY) 5 mg tabletIndications:Anxie ty Take 1 Tab by mouth daily. 06/03/2020 10/04/2020 documented as of this encounter Active and Recently Administered Medications Times are shown in EST. Scheduled Medication Order 10/02/2020 10/03/2020 10/04/2020 benztropine (COGENTIN) tablet 0.5 mg 0.5 mg, oral, 2 TIMES DAILY, First dose on Sun10/01/20 at 2100, Until Discontinued, Routine 07 (Given - Provider: Carisa Gutierrez RN - Comment: per MD)08 (Not Given - Provider: Brittaney Finnegan RN - Reason: Other - Comment: given @ 0705 per MD)2041 (Given - Provider: Lauri Hawkins RN) 08 (Given - Provider: Yudith Cummings RN)2008 (Given - Provider: Jesusita Thompson RN) 08 (Given - Provider: Loree Rodrigues RN) cholecalciferol (Vitamin D3) tablet 1,000 Units 1,000 Units, oral, DAILY, First dose (after last modification) on Jo-Ann 09/23/20 at 1615, Until Discontinued, Routine 07 (Given - Provider: Carisa Gutierrez RN - Comment: per MD)08 (Not Given - Provider: Brittaney Finnegan RN - Reason: Other - Comment: Given @ 07 per MD) 0856 (Given - Provider: Yudith Cummings RN) 08 (Given - Provider: Loree Rodrigues RN) haloperidoL (HALDOL) tablet 15 mg 15 mg, oral, AT BEDTIME, First dose on Sun10/01/20 at 2100, Until Discontinued, Routine 2041 (Given - Provider: Lauri Hawkins RN) 2008 (Given - Provider: Jesusita Thompson RN) haloperidoL (HALDOL) tablet 5 mg 5 mg, oral, DAILY, First dose (after last modification) on Sun09/28/20 at 0900, Until Discontinued, Routine 07 (Given - Provider: Carisa Gutierrez RN - Comment: per )08 (Not Given - Provider: Brittaney Finnegan RN - Reason: Other - Comment: Given @ 0705 per MD) 0855 (Given - Provider: Yudith Cummings RN) 08 (Given - Provider: Loree Rodrigues RN) magnesium sulfate (EPSOM SALT) granules topical, DAILY, First dose on Sun09/26/20 at 1315, Until Discontinued, Routine 0848 (Not Given - Provider: Alexi Cespedes RN - Reason: Patient/family refused) 0901 (Not Given - Provider: Yudith Cummings RN - Reason: Patient/family refused) 0900 (Not Given - Provider: Loree Rodrigues RN - Reason: Other) PRN Medication Order 10/02/2020 10/03/2020 10/04/2020 acetaminophen (TYLENOL) tablet 500 mg 500 mg, oral, EVERY 4 HOURS PRN, Starting on Sun09/21/20 at 2035, Until Sun10/04/20 at 1757, Pain, Routine 0959 (Given - Provider: Alexi Cespedes RN) 1621 (Given - Provider: Clair Rubio) 0747 (Given - Provider: Loree Rodrigues RN)1317 (Given - Provider: Lucía Gifford RN) haloperidoL (HALDOL) tablet 5 mg(Linked Group 1) 5 mg, oral, 2 TIMES DAILY PRN, Starting on Sun10/01/20 at 1627, Until Sun10/04/20 at 1757, Agitation, feeling amped up, more manic, Routine 1743 (Given - Provider: Clair Rubio) hydrOXYzine (ATARAX) tablet 25 mg 25 mg, oral, 3 TIMES DAILY PRN, Starting on Sun09/26/20 at 1247, Until Sun10/04/20 at 1757, Itching, Anxiety, Routine 0152 (Given - Provider: Carisa Gutierrez RN)0959 (Given - Provider: Alexi Cespedes RN)1654 (Given - Provider: Alexi Cespedes RN)2357 (Given - Provider: Marie Stringer, ANTONI) 0432 (Given - Provider: Carisa Gutierrez RN)1255 (Given - Provider: Yudith Cummings RN) 0254 (Given - Provider: Jesusita Thompson RN) LORazepam (ATIVAN) tablet 1 mg 1 mg, oral, EVERY 6 HOURS PRN, Starting on Sun10/01/20 at 1626, Until Sun10/04/20 at 1757, Anxiety, Routine 1327 (Given - Provider: Alexi Cespedes RN)2357 (Given - Provider: Marie Stringer RN) 0539 (Given - Provider: Marie Stringer RN) 0747 (Given - Provider: Loree Rodrigues, ANTONI) LORazepam (ATIVAN) tablet 1 mg(Linked Group 1) 1 mg, oral, 2 TIMES DAILY PRN, Starting on Sun10/01/20 at 1628, Until Sun10/04/20 at 1757, combined with haldol for when pt is agitated or feeling amped up or more manic, Routine 1743 (Given - Provider: Clair Rubio) melatonin tablet 6 mg 6 mg, oral, AT BEDTIME PRN, Starting on Sun09/22/20 at 2045, Until Sun10/04/20 at 1757, Other, insomnia, Routine 2155 (Given - Provider: Carisa Gutierrez RN) Linked Groups Order Group 1: haloperidoL (HALDOL) tablet 5 mgJump to med 5 mg, oral, 2 TIMES DAILY PRN, Starting on Sun10/01/20 at 1627, Until Sun10/04/20 at 1757, Agitation, feeling amped up, more manic, Routine And LORazepam (ATIVAN) tablet 1 mgJump to med 1 mg, oral, 2 TIMES DAILY PRN, Starting on Sun10/01/20 at 1628, Until Sun10/04/20 at 1757, combined with haldol for when pt is agitated or feeling amped up or more manic, Routine documented in this encounter Orders Medications Ordered That Rajinder ht Not Have Been Administered Count Last Ordered Date First Ordered Date haloperidoL (HALDOL) tablet 5 mg 1 09/27/19 Cholecalciferol (Vitamin D3) tablet 400 Units 1 09/23/2020 LORazepam (ATIVAN) tablet 0.5 mg 1 09/21/20 20 Nursing Count Last Ordered Date First Orde red Date NURSING COMMUNICATION 6 10/02/20202019 HEIGHT AND WEIGHT 1 09/21/2020 PATIENT AT LOW RISK FOR VTE: RISK OF MECHANICAL PROPHYLAXIS OUTWEIGHS 1 09/21/2020 PATIENT AT LOW RISK FOR VTE: RISK OF PHARMACOLOGIC PROPHYLAXIS OUTWEIG 1 09/21/2020 Respiratory Care Count Last Ordered Date First Ordered Date RESPIRATORY CARE EVALUATION ONLY 1 09/21/20 20 Admission Count Last Ordered Date First Orde red Date ADMIT TO IP PSYCH 1 09/21/2020 PSYCH BED REQUEST 1 09/21/2020 Transfer Count Last Ordered Date First Orde red Date TEACHING SERVICE 1 09/21/2020 Discharge Count Last Ordered Date First Orde red Date DISCHARGE PATIENT 1 10/04/2020 documented in this encounter Care Teams Curtain Drier Relationship Specialty Start Date End Date Rita Kahn DO [address] [place] [id number] PCP - Alternate 02/13/18 03/16/21 Tremaine Shankar MD 1 [facility] [address] [place] [id number] PCP - General 06/25/18 03/29/22 documented as of this encounter
--- OUTSIDE RECORDS SUMMARY | 2024-06-16 15:24 | XMS_ITS | Encounter Summary ---
Author Organization [facility] Address [address] [place] [address] Care Team Providers Care Pediatric Dental Hygienist Name Role Phone Rita Kahn Eder DO Unavailable [phone] Tremaine Shankar MD Primary Care Provider + Reason for Visit * Reason Onset Date Comments Appointment Related 02/23/2020 [facility] visit Encounter Details Date Type Department Care Team (Late st Contact Info) Description 02/23/2020 Telephone [facility] Adult Primary Care [facility] [address] [place], [place] [id number] Tremaine Shankar MD 1 [facility] Level [address] [place] [address] Appointment Related (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 Dow's shared medical visits might be beneficial to him. Patient requests consideration to be new participant. documented in this encounter Plan of Treatment [...] visit: [email or web address] documented as of this encounter Visit Diagnoses Not on filedocumented in this encounter Care Teams Pediatric Dental Hygienist Relationship Specialty Start Date End Date Rita Kahn DO [address] [place] [phone] PCP - Alternate 02/13/18 03/16/21 Tremaine Shankar MD 1 [facility] [address] [place] [phone] PCP - General 06/25/18 03/29/22 documented as of this encounter
--- OUTSIDE RECORDS SUMMARY | 2024-06-16 15:24 | XMS_ITS | Encounter Summary ---
Author Organization [facility] Address [address] [place] [address] Care Team Providers Care Behavioral Therapy Coordinator Name Role Phone Rita aKhn DO Unavailable [phone] Tremaine Shankar MD Primary Care Provider + Reason for Visit * Reason Comments Nutrition Counseling Encounter Details Date Type Department Care Team (Late st Contact Info) Description 07/23/2020 8:30 EDT Nutrition [address] [address] Rita Martinez, RD 118 [facility] [address] [place] [phone] Social History Tobacco Use Types Packs/Day [...] Progress Notes * Rita Carnes, KEV - 07/23/2020 0830 EDT Adult Primary Care & Family Medicine Primary Care Dietitian - Nutrition Follow Up 07/23/20 The concept of Telehealth has been described [...] patient???s medical or mental health care. TELEHEALTH PHONE VISIT Today's visit was provided through telehealth PHONE conferencing: The location of the patient : Home The location of the provider: Home The following staff and their role did participate in today's encounter visit: Rita Carnes, KEV Subjective Continues to lose weight; reports being below 380 lbs. 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 Has been eating some carbohydrates as snacks and says that he ???saves the carbohydrates for snacks?? - crackers, chips, popcorn. Familiar with the macronutrient report and thinks that he is less than <50%. Sleep Continue to use CPAP and notes most nights <5 hours sleep Physical Activity Has been dancing regularly - participating in live-stream [employer] sets; walking dog most days. Objective Not available at this time due to [facility] system-wide network outage. Assessment Overeweight/obesity r/t history of imbalanced nutrition, inconsistent meal timing, physical inactivity, predicted excessive energy consumption. As evidenced by elevated BMI. Per report maintaining weight loss, no additional weight loss reported. MNT/Education Discussed food tracking and use of nutrient reports both for calorie and macronutrient distribution. Reviewed significance and importance of consistent meal timing as related to nutrient metabolism and storage and maintaining steady blood glucose levels. Plan - Follow up 30 minutes - as soon as able - Continue to track food intake a review reports (maconutrient, calorie distribution) Time Spent: 30 minutes Rita Carnes MS, RD, CD documented [...] your health please visit: https://www.[facility].org/medcenter/Pages/Wellness-Resources/Crumwduqt-Snylqt-[facility] e-Center.aspx documented as of this encounter Visit Diagnoses Not on filedocumented in this encounter Care Teams Behavioral Therapy Coordinator Relationship Specialty Start Date End Date Rita Kahn DO [address] [place] [address] PCP - Alternate 02/13/18 03/16/21 Tremaine Shankar MD 1 [facility] [place] [facility] [address] [place] [address] PCP - General 06/25/18 03/29/22 documented as of this encounter
--- OUTSIDE RECORDS SUMMARY | 2024-06-16 15:24 | XMS_ITS | Encounter Summary ---
Author Organization [facility] Address [address] [place] [address] Care Team Providers Care Wire Inspector Name Role Phone Criss Rita Eder DO Unavailable [phone] Tremaine Shankar MD Primary Care Provider + Dallas Canas MD PhD Unavailable Unavailabl e Reason for Visit * Reason Onset Date Comments Medications Refill 01/30/2019 Encounter Details Date Type Department Care Team (Late st Contact Info) Description 01/30/2019 Refill [facility] Adult Primary Care [address] [id number] Abdulaziz Hilton MD [address] [place] [phone] Medications Refill Social History Tobacco Use Types [...] ARIPiprazole (ABILIFY) 5 mg tabletIndications:Anxiety Take 1 tablet by mouth daily. 30 tablet 01/30/2019 02/27/2019 documented in this encounter Miscellaneous Notes * Telephone Encounter - Adriane Champagne RN - 01/30/2019 1022 EDT Called patient to review MD response- LMTCB advising he needs to call back and schedule PCP visit * Telephone Encounter - Demario Miller DO - 01/30/2019 0928 EDT Reviewed notes from Dr. Hilton and Dr. Edouard. Patient with morbid obesity on abilify; has not had office visit follow-up with several no shows. I will provide a 30 day refill. I have also ordered A1C and lipid panel. The patient needs to be seen for an OV in order to continue further prescription of these medications. Please call patient and schedule follow-up with PCP and request that he get lab work done prior to this visit. Additionally please relay that he needs an office visit either with our office or psychiatry prior to future refills of this medication. Demario Miller DO PGY2 Internal Medicine * Telephone Encounter - Adriane Champagne RN - 01/30/2019 0848 EDT Medication(s) Requested: abilify Preferred Pharmacy: [place] Is patient out of medication? Unknown Last Refill Date: 12/31/18 Last Visit Date with Ordering Provider: 07/28/2018 Next Non-Acute Visit Date Scheduled with Care Team: No. Adriane Champagne RN 01/30/2019 8:53 documented in this encounter Plan of Treatment [...] about your health please visit: https://www.[facility].org/medcenter/Pages/Wellness-Resources/Zymbivlfc-Hrevfy-Fv cox monett e-Center.aspx documented as of this encounter Results * LIPID PROFILE (INCLUDES CHOLESTEROL, TRIGLYCERIDES, HDL, LDL) (04/07/2019 10:02 EDT) Cholesterol 120 mg/dl 04/07/2019 12:19 [facility] Comment: Desirable:<200 Borderline High:200-239 High:>kc=401 Triglycerides 70 mg/dl 04/07/2019 12:19 [facility] Comment: Normal:<150 Borderline High:150-199 High:200-499 Very High:>vs=177 HDL 51 mg/dl 04/07/2019 12:19 [facility] Comment: Low:<40 Normal:40-60 Desirable: >60 LDL, Calculated 55 mg/dl 9 12:19 [facility] Comment: Optimal:<100 Near Optimal:100-129 Borderline High:130-159 High:160-189 Very High:>kr=067 Chol/HDL Ratio 2.4 04/07/2019 12:19 [facility] Fasting? YES 04/07/2019 9:59 [facility] Non HDL Cholesterol 69 mg/dl 04/07/2019 12:19 [facility] Comment: Desirable:<130 Borderline:130-159 High: 160-189 Very High: >tw=816 Blood specimen (specimen) BLOOD SPECIMEN / Unknown 04/07/2019 10:02 EDT 04/07/2019 11:44 EDT Tremaine Shankar MD CHEMISTRY & BLOO D GAS ORDERABLES [facility] [address] [place] [address] * HEMOGLOBIN A1C (04/07/2019 10:02 EDT) Hemoglobin A1C 5.5 % 04/07/2019 14:17 EDT [facility] Comment: Reference Range: <5.7% Normal 5.7-6.4% Prediabetes =>6.5% Diagnostic for diabetes (if confirmed) Goals for glycemic control in diabetes ADA 2017 For non adults with diabetes: ?? Target <7.0% For children and adolescents with type 1 diabetes: ?? Target <7.5% More or less stringent targets may be appropriate for individual patients. Est Avg Glucose 111 mg/dl 9 14:17 EDT [facility] Comment: eAG represents the A1c result expressed as average glucose in mg/dl. Blood specimen (specimen) BLOOD SPECIMEN / Unknown 04/07/2019 10:02 EDT 04/07/2019 11:44 EDT Tremaine Shankar MD CHEMISTRY & BLOO D GAS ORDERABLES [facility] [address] [place] [address] documented in this encounter Visit Diagnoses Diagnosis Class 3 severe obesity with body mass index (BMI) of 50.0 to 59.9 in adult, unspecified obesity type, unspecified whether serious comorbidity present ([facility])- Primary Anxiety Anxiety state, unspecified Elevated random blood glucose level Other abnormal glucose documented in this encounter Discontinued Medications Medication Sig Discontinue Reason Start Date End Da te ARIPiprazole (ABILIFY) 5 mg tabletIndications:Anxiet y Take 1 tablet by mouth daily. Reorder 12/31/2018 01/30/2019 documented as of this encounter Care Teams Wire Inspector Relationship Specialty Start Date End Date Rita Kahn DO [address] [place] [address] PCP - Alternate 02/13/18 03/16/21 Tremaine Shankar MD 1 [facility] [address] [place] [phone] PCP - General 06/25/18 03/29/22 Dallas Canas MD PhD [facility] [address] [place] [address] PCP - Alternate 03/17/21 03/29/22 documented as of this encounter
--- OUTSIDE RECORDS SUMMARY | 2024-06-16 15:24 | XMS_ITS | Encounter Summary ---
Author Organization [facility] Address [address] [place] [address] Care Team Providers Care Irrigation Technician Name Role Phone Rita Kahn DO Unavailable [phone] Tremaine Shankar MD Primary Care Provider + Reason for Visit * Reason Comments Nutrition Counseling Encounter Details Date Type Department Care Team (Late st Contact Info) Description 03/05/2020 Community Health Team [facility] Adult Primary Care - [address] [id number] Rita Martinez, RD 118 [facility] [address] [place] [phone] Social History Tobacco Use Types Packs/Day [...] Progress Notes * Rita Carnes, KEV - 03/05/2020 0803 EDT Community Health Team Registered Dietitian Follow up Encounter Date of visit: 03/05/2020 Nutrition education and counseling follow up encounter with Venkata Zhao for Morbid obesity. Goals from previous nutrition visit: 02/27/2020 PATIENT IDENTIFIED GOALS: 30 lb weight loss (goal weight 350 lbs) ?? PLAN:?? Walk??1 hour per day,??3 days per week Drink??water and??tea; continue to limit/avoid diet soda, regular soda, sugar sweetened beverages, juice and milk as beverages Listen to hunger cues; practice mindful eating affirmations (develop alternative message than cheat day, such as date night) Balanced and consistent meals; limit sweets Limit eating between meals, unless able to identify physical hunger Limit eating after dinner (630pm) Attend Dr. [facility] Appointment, March 04, 2020?? SUBJECTIVE: Venkata states: ?? Reports a very positive experience with [facility]ointment yesterday; reports being energized and participating; really enjoyed sharing the pictures of the frittata and talking with the banquet chef ?? 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 Reports some weight gain in the last week; up to 386 lbs; today weighs 382 lbs Nutrition: ?? Yesterday had date night with and they ate out; purchased some soup for lunches from [employer] ?? Wants to prioritize eating well with this new job; feels open to talking with boss about his health priorities, including weight loss ?? Continues to limit intake of sugar ?? In the past has brought lunch to work, sandwich, chips, soda; reflects this is not what he wantsto bring to work now; thinks he perhaps might like to prepare a shahid box; will be able to store lunch in the fridge at work Physical Activity: ?? Did not walk at [employer] this week, because of new job (interview, starting) OBJECTIVE: Nutrition Focused Physical Exam: Not completed, [...] timing, physical inactivity and history of excessive consumption Signs & Symptoms: Elevated BMI (see above) [...] recommendations for vegetable and fruit consumption. ?? Brainstormed meal modifications to improve nutrient balance per [employer] education and recommendations, including reduced starchy, refined carbohydrate and added sugar, and increased lean protein, healthy fat, and dietary fiber (non-starchy vegetables and fruit). ?? Provided and reviewed handout on meal planning; discussed principles and brainstormed tools to help plan and prepare balanced meals/snacks in advance. MNT/Educational Materials Provided: n/a Learning Readiness and [...] STAGE OF CHANGE: Action PATIENT IDENTIFIED GOALS: 3 lb wt loss in the next week PLAN: ?? 2 long and 1 short walks per week at [facility] ?? Basketball once per week ?? Shahid box style lunch - healthy, balanced food choices ?? Get the details on reopening of [employer] (already has membership); look at [employer] for an equipment[employer] training set ?? Continue w/ limited intake of added sugar, refined carbohydrates; avoid eating after 630pm and in between meals ADDITIONAL INFORMATION FOR PROVIDER: follow up nutrition in 1 week; maintaining 20 lb wt loss Patient's Primary Care Site: [facility] [place], [address] [place] [address] Total Time: 50 minutes (35 telehealth phone, 15 charting) Referral: none Follow up: already scheduled Status: Active Thank you for your referral, [...] learn more about your health please visit: https://www.[facility].org/medcenter/Pages/Wellness-Resources/Xoszyukwb-Hbjrao-Qk sourc e-Center.aspx documented as of this encounter Visit Diagnoses Not on filedocumented in this encounter Care Teams Irrigation Technician Relationship Specialty Start Date End Date Rita Kahn DO [address] [place] [address] PCP - Alternate 02/13/18 03/16/21 Tremaine Shankar MD 1 [facility] 1 [place] [address] PCP - General 06/25/18 03/29/22 documented as of this encounter
--- OUTSIDE RECORDS SUMMARY | 2024-06-16 15:24 | XMS_ITS | Encounter Summary ---
Author Organization [facility] Address [address] [place] [address] Care Team Providers Care Concrete Pouring Supervisor Name Role Phone Rita Kahn DO Unavailable [phone] Tremaine Shankar MD Primary Care Provider + Reason for Visit * Reason Comments Urinary Frequency Encounter Details Date Type Department Care Team ([facility] Contact Info) Description 03/07/2019 13:15 EDT Office Visit [facility] Adult Primary Care [address] [address] Unknown, Provider, Antolin Brandt MD [address] [phone] Rita Kahn, DO [address] [place] [address] Urinary frequency (Primary Dx) Discharge Disposition: Auto Discharge Social [...] Sign Reading Time Taken Comments Blood Pressure 104/62 03/07/2019 1335 EDT Pulse 80 03/07/2019 1335 EDT Temperature 36.9 ??C (98.5 ??F) 03/07/2019 1335 EDT Respiratory Rate 20 03/07/2019 1335 EDT Oxygen Saturation - - Inhaled Oxygen Concentration - - Weight 169.5 kg (373 lb 9.6 oz) 03/07/2019 1335 EDT Height 180.3 cm (5' 11) 03/07/2019 1335 EDT Body Mass Index 52.11 03/07/2019 1335 EDT documented in this encounter [...] as of this encounter Discharge Diagnoses Diagnosis R35.0 Frequency of micturition-R35.0[ICD-10-CM] documented in this encounter Ordered Prescriptions Prescription Sig Dispensed Refills Start Date End Da te LORazepam (ATIVAN) 1 mg tablet Take 1 Tab by mouth 2 times daily. Daily Max: 2 mg 15 Tab 03/07/2019 09/29/2019 documented in this encounter Discharge Disposition Disposition Code Departure Means Destination Auto Discharge documented in this encounter Progress Notes * Rita Kahn, - 03/07/2019 1315 EDT Subjective: Patient ID: Venkata Zhao is an 33 y.o. male. Chief Complaint Patient presents with ??? Urinary Frequency HPI Pt is a 33 yo male presenting today for an acute visit for dysuria. Feels that he is not emptying his bladder. Has been for greater than a week. Does not have burning. Scrotal pain. No discharge. No penial lesions. Levant that his scrotum was swollen earlier this week. Is engaged to be deniesany new sexual partners. He has no suspicions for a sexually transmitted infection. He does not want to be tested for STIs at this visit. Side note: Patient was last seen by myself on 08/07/18 at which time discussed his recent observation in the ED for psychotic episode. current medications are abilify, trazadone and prn ativan. Hemoglobin A1c and lipid panel were ordered for patient in January. (Due to morbid obesity and on Abilify) However patient has not had these labs drawn. Patient Active Problem List Diagnosis ??? Allergic rhinitis ??? Scalp cyst ??? NIA (obstructive sleep apnea) ??? Morbid obesity (HCC-CMS) ??? Psychotic episode (HCC-CMS) ??? Eczema ??? Primary insomnia ??? Anxiety ??? Acute left ankle pain Outpatient Medications Marked as Taking for the 03/07/19 encounter (Office Visit) with Rita Kahn, DO Medication Sig Dispense Refill ??? ARIPiprazole (ABILIFY) 5 mg tablet Take 1 Tab by mouth daily. 30 Tab 3 ??? LORazepam (ATIVAN) 1 mg tablet Take 1 Tab by mouth every 6 hours. Daily Max: 4 mg 15 Tab 0 ??? melatonin 3 mg tablet TAKE ONE TABLET BY MOUTH EVERY NIGHT AT BEDTIME NEEDED FOR INSOMNIA 30Tab 3 ??? therapeutic hand-body (EUCERIN ORIGINAL) lotion Apply topically as needed. ??? traZODone (DESYREL) 100 mg tablet Take 1.5 Tabs by mouth at bedtime. 45 Tab 0 Review of Systems Constitutional: Negative. Respiratory: Negative. Cardiovascular: Negative. Gastrointestinal: Negative. Genitourinary: Positive for frequency and urgency. Negative for dysuria, flank pain and hematuria. Denies any discharge, rashes, ulcers, any other lesions on the penis or scrotal area. Skin: Negative. - See HPI Objective: BP 104/62 Pulse 80 Temp 36.9 ??C (98.5 ??F) (Tympanic) Resp 20 Ht 180.3 cm (71) Wt (!) 169.5 kg (373 lb 9.6 oz) BMI 52.11 kg/m?? Physical Exam Constitutional: He is oriented to person, place, and time. He appears well- developed and well-nourished. No distress. HENT: Mouth/Throat: Mucous membranes are moist. Neck: Neck supple. Cardiovascular: Normal rate, regular rhythm and normal heart sounds. Pulmonary/Chest: Effort normal and breath sounds normal. Abdominal: Soft. Bowel sounds are normal. Genitourinary: Genitourinary Comments: No suprapubic tenderness. Neurological: He is alert and oriented to person, place, and time. Skin: Skin is warm and dry. Psychiatric: Flat affect Assessment / Plan: Mr. Zhao PMHx of OAS, alcohol and canabis use unspecified psychotic disorder, unspecified anxiety disorder and 2 previous psychiatric ddmissions presenting to clinic today for acute visit for urinary symptoms. Urinary frequency: Uncertain etiology differential includes urinary tract infection versus prostatitis versus STI. At this time suspicious for prostatitis. Given that he has urinary frequency clean urine and some pain in the scrotum. -Rtdiz-su-ktzo urine dip clean Supportive care at this time suggested-NSAIDs. -Advised patient to call back to the clinic if symptoms are not improving with supportive care. Could consider an antibiotic. unspecified psychotic disorder brief psychotic episode and monitored in the ED from 06/22 to 06/24. He has unfortunately no-showed and canceled his outpatient psyc follow ups. Seems to be stable on current medications. - Abilify 5 mg nightly (again suggested the patient get hemoglobin A1c and cholesterol panel. Labs are already ordered.) -Continue Ativan 0.5 mg as needed. -Continue trazodone 150 mg nightly Anxiety: V PMS was reviewed. Patient refilled lorazepam July 2018 15 tablets -Today refilled lorazepam 1 mg 15 tablets. ?? Morbid obesity: Patient has a BMI of greater than 50. He states that he is had stable weight. - hemoglobin a1c and lipid profile -- have asked this patient several times to have blood drawn- hetold this resident he would have labs drawn after his appointment- by the end of the day looking atlabs tab in the medical center, he did not have blood drawn. Requested RN to call Pt to see if there were any barriers to him getting labs done. Venkata was seen today for urinary frequency. Diagnoses and all orders for this visit: Urinary frequency - POCT URINE DIPSTICK, CLINITEK Other orders - LORazepam (ATIVAN) 1 mg tablet; Take 1 Tab by mouth 2 times daily. Daily Max: 2 mg Rita Kahn DO 03/07/2019 18:22 * Antolin Brandt MD, - 03/07/2019 1315 EDT I discussed the patient with the resident at the time of the visit. I agree with the findings and the plan of care documented in their note. Any changes are made in BLUE. Antolin Brandt MD, FACP documented in this encounter Plan of Treatment [...] learn more about your health please visit: https://www.[facility].org/medcenter/Pages/Wellness-Resources/Yoricgfhu-Fvulyd-Ar sourc e-Center.aspx documented as of this encounter Procedures Procedure Name Priority Date/Time Associated Diagnosis Comments POCT URINE DIPSTICK, CLINITEK Routine 03/07/2019 13:51 EDT Urinary frequency documented in this encounter Results * POCT URINE DIPSTICK, CLINITEK (03/07/2019 13:51 EDT) Color YELLOW Yellow 03/07/2019 13:59 [facility] Clarity, UA Clear Clear 03/07/2019 13:59 [facility] Glucose Neg Neg 03/07/2019 13:59 [facility] Bilirubin Neg Neg 03/07/2019 13:59 [facility] Ketones Neg Neg 03/07/2019 13:59 [facility] Specific [place] 1.020 1.001 - 1.035 03/07/2019 13:59 [facility] Blood Neg Neg 03/07/2019 13:59 [facility] pH 6.5 4.6 - 8.0 03/07/2019 13:59 [facility] Protein Neg Neg 03/07/2019 13:59 EDT [facility] Urobilinogen 0.2 0.2 - 1.0 mg/dL 03/07/2019 13:59 EDT [facility] Nitrite Neg Neg 03/07/2019 13:59 EDT [facility] Leuk Esterase Neg Neg 03/07/2019 13:59 EDT [facility] canning machine operator ID [id number] 03/07/2019 13:59 EDT [facility] Comment:Test performed at [facility] Urine specimen (specimen) URINE / Unknown 03/07/2019 13:51 EDT 03/07/2019 13:59 EDT Tremaine Shankar MD POINT OF CARE ST ORDERABLES [facility] [address] [place] [address] documented in this encounter Visit Diagnoses Diagnosis Urinary frequency- Primary documented in this encounter Care Teams Concrete Pouring Supervisor Relationship Specialty Start Date End Date Rita Kahn DO [address] [place] [address] PCP - Alternate 02/13/18 03/16/21 Tremaine Shankar MD 1 [facility] 1 [place] [address] PCP - General 06/25/18 03/29/22 documented as of this encounter
--- OUTSIDE RECORDS SUMMARY | 2024-06-16 15:25 | XMS_ITS | Encounter Summary ---
Author Organization [facility] Address [address] [place] [address] Care Team Providers Care Licensed Social Worker Name Role Phone Tremaine Shankar MD Primary Care Provider + Brittaney Gutiérrez MD PhD Unavailable [phone] Reason for Visit * Reason Comments Cough Emesis Encounter Details Date Type Department Care Team (Late st Contact Info) Description 06/13/2017 14:45 EDT Office Visit [facility] Adult Primary Care - [address] [id number] Unknown, Provider, Tremaine Shankar MD [address] [address] Brittaney Gutiérrez MD PhD [address] [place] [phone] Viral URI with cough (Primary Dx) Discharge Disposition: Auto Discharge Social History Tobacco Use Types Packs/Day Years Used Date Smoking Tobacco: Former Cigarettes Q uit: 08/28/2013 Smokeless Tobacco: Never Alcohol Use Standard Drinks/Week Comments Yes 0 (1 standard drink = 0.6 oz pur e alcohol) 2 Sex and Gender Information Value Date Recorded Sex Assigned at Not on file Gender Identity Not on file Sexual Orientation Not on file documented as of this encounter Last Filed Vital Signs Vital Sign Reading Time Taken Comments Blood Pressure 120/74 06/13/2017 1446 EDT Pulse 100 06/13/2017 1446 EDT Temperature 37.6 ??C (99.6 ??F) 06/13/2017 1446 EDT Respiratory Rate 20 06/13/2017 1446 EDT Oxygen Saturation - - Inhaled Oxygen Concentration - - Weight 163 kg (359 lb 6.4 oz) 06/13/2017 1446 ED T Height - - Body Mass Index 50.15 10/11/2016 1432 EST documented in this encounter Functional Status Functional Status Response Date of Assess ment Because of a physical, menta l, or emotional condition, does this person have difficulty doing errands alone such as visiting a doctor's office or shopping? No 01/23/2017 Cognitive Status Response Date of Assessm ent Because of a physical, menta l, or emotional condition, does this person have serious difficulty concentrating, remembering, or making decisions? No 01/23/2017 documented as of this encounter Discharge Diagnoses Diagnosis J06.9 Acute upper respiratory infection, unspecified-J06.9[ICD-10-CM] B97.89 Other viral agents as the cause of diseases classified elsewhere-B97.89[ICD-10-CM] documented in this encounter Ordered Prescriptions Prescription Sig Dispensed Refills Start Date End Da te benzonatate (TESSALON) 100 mg capsule Take 1 Cap by mouth 3 times daily as needed for Cough. 30 Cap 06/13/2017 01/11/2018 documented in this encounter Discharge Disposition Disposition Code Departure Means Destination Auto Discharge documented in this encounter Progress Notes * Brittaney Gutiérrez MD PhD - 06/13/2017 1445 EDT Subjective: Patient ID: Venkata Zhao is an 32 y.o. male. Chief Complaint Patient presents with ??? Cough ??? Emesis AMY Hastings comes in today with a 1 day history of severe cough, mild nausea with vomiting and minor sore throat. He says that his girlfriend who works with young children to school, has similar symptoms.He denies fevers, chills, difficulty breathing, nasal congestion, hemoptysis, increase in sputum, dyspnea, continued vomiting, diarrhea, abdominal pain, swelling in his legs. Patient Active Problem List Diagnosis ??? Allergic rhinitis ??? Scalp cyst ??? NIA (obstructive sleep apnea) ??? Morbid obesity ??? Psychotic episode ??? Eczema ??? Primary insomnia ??? Anxiety Outpatient Prescriptions Marked as Taking for the 06/13/17 encounter (Office Visit) with Brittaney Gutiérrez MD,PHD Medication Sig Dispense Refill ??? ARIPiprazole (ABILIFY) 5 mg tablet Take 1 Tab by mouth daily. 30 Tab 3 ??? fluocinonide (LIDEX) 0.05 % ointment Apply topically 2 times daily. Do not apply to face, armpit or groin. 60 g 3 ??? LORazepam (ATIVAN) 1 mg tablet Take 0.5 Tabs by mouth as needed for Anxiety (limit use to acuteanxiety attcks). Daily Max: 1 mg 20 Tab 0 ??? melatonin 3 mg tablet TAKE ONE TABLET BY MOUTH EVERY NIGHT AT BEDTIME NEEDED FOR INSOMNIA 30Tab 3 ??? therapeutic hand-body (EUCERIN ORIGINAL) lotion Apply topically as needed. ? ? traZODone (DESYREL) 100 mg tablet TAKE 1 & 1/2 TABLET BY MOUTH AT BEDTIME 45 Tab 2 Review of Systems Constitutional: Positive for weight loss (has been working out). Negative for chills and fever. HENT: Positive for sore throat. Negative for congestion and sinus pain. Eyes: Negative for blurred vision. Respiratory: Positive for cough. Negative for hemoptysis, sputum production, shortness of breath and wheezing. Cardiovascular: Negative for chest pain. Gastrointestinal: Positive for nausea and vomiting. Negative for blood in stool, constipation, diarrhea and melena. Genitourinary: Negative for dysuria and hematuria. Musculoskeletal: Negative for myalgias. Neurological: Negative for dizziness, sensory change and focal weakness. Psychiatric/Behavioral: Negative for depression, substance abuse and suicidal ideas. - See HPI Objective: BP 120/74 Pulse 100 Temp 37.6 ??C (99.6 ??F) (Tympanic) Resp 20 Wt (!) 163 kg (359 lb 6.4 oz) BMI 50.15 kg/m2 Physical Exam Constitutional: He is oriented to person, place, and time. He appears well- developed and well-nourished. HENT: Right Ear: Tympanic membrane normal. Left Ear: Ear canal normal. Nose: No nasal discharge. Mouth/Throat: Mucous membranes are moist. Oropharynx is clear. Pharynx is normal. Left tympanic membrane obscured by wax Eyes: Conjunctivae are normal. Pupils are equal, round, and reactive to light. Left eye exhibits nodischarge. No scleral icterus. Neck: No thyromegaly present. Cardiovascular: Normal rate and regular rhythm. No murmur heard. Pulmonary/Chest: Effort normal and breath sounds normal. No respiratory distress. He has no wheezes. He has no rales. Musculoskeletal: He exhibits no edema. Lymphadenopathy: He has no cervical adenopathy. Neurological: He is alert and oriented to person, place, and time. Assessment / Plan: Venkata presents with symptoms of a upper respiratory infection. Counseled that these are likely viral and that treatment is supportive. Counseled to stay hydrated, takes zinc lozenges, use Robitussinas needed. Also prescribed Tessalon pearls. Counseled good hand hygiene and rest. He will follow upif not improving. Venkata was seen today for cough and emesis. Diagnoses and all orders for this visit: Viral URI with cough Other orders - benzonatate (TESSALON) 100 mg capsule; Take 1 Cap by mouth 3 times daily as needed for Cough. Brittaney Gutiérrez MD,PHD 06/13/2017 18:04 * Tremaine Shankar III, MD - 06/13/2017 7745 EDT Attestation statement: I discussed the patient [...] learn more about your health please visit: https://www.[facility].org/medcenter/Pages/Wellness-Resources/Xdqjinfti-Nrlsur-Hb sourc e-Center.aspx documented as of this encounter Visit Diagnoses Diagnosis Viral URI with cough- Primary Acute upper respiratory infections of unspecified site documented in this encounter Care Teams Licensed Social Worker Relationship Specialty Start Date End Date Tremaine Shankar MD 1 [facility] 1 [place] [address] PCP - General 10/18/15 06/21/18 Brittaney Gutiérrez MD PhD 111 [facility] 2 [place] [address] PCP - Alternate 10/21/15 02/12/18 documented as of this encounter
--- OUTSIDE RECORDS SUMMARY | 2024-06-16 15:25 | XMS_ITS | Encounter Summary ---
Author Organization [facility] Address [address] [place] [address] Care Team Providers Care Spotlight Operator Name Role Phone Rita Kahn Eder DO Unavailable [phone] Tremaine Shankar MD Primary Care Provider + Encounter Details Date Type Department Care Team (Latest Contact Info) Description 09/12/2018 16:52 EST - 09/12/2018 23:59 [facility] Hospital Encounter [address] [address] Tremaine Shankar MD [address] [place] [phone] Discharge Disposition: Home or Self Care Social [...] as of this encounter Discharge Diagnoses Diagnosis Z02.1 Encounter for pre-employment examination-Z02.1[ICD-10-CM] documented in this encounter Medications at Time of Discharge Medication Sig Dispensed Refills Start Date End Date ARIPiprazole (ABILIFY) 5 mg tabletIndications:Anxie ty Take 1 Tab by mouth daily. 30 Tab 3 08/07/2018 12/30/2018 fluocinonide (LIDEX) 0.05 % ointment Apply topically [...] traZODone (DESYREL) 100 mg tabletIndications:Anxie ty,Psychophysiological insomnia take 1 and 1/2 tablets by mouth at bedtime 45 Tab 08/12/2018 09/15/2018 traZODone (DESYREL) 100 mg tabletIndications:Anxie ty,Psychophysiological insomnia take 1 and 1/2 tablet by mouth at bedtime 45 Tab 01/05/2018 10/12/2018 documented as of this encounter Discharge Disposition Disposition Code Departure Means Destination Home or Self [facility] documented in this encounter Plan of Treatment [...] learn more about your health please visit: https://www[facility].org/medcenter/Pages/Wellness-Resources/Zebhecmqd-Kkehmc-Zt [facility] e-Center.aspx documented as of this encounter Visit Diagnoses Not on filedocumented in this encounter Care Teams Spotlight Operator Relationship Specialty Start Date End Date Rita Kahn DO [address] [place] [address] PCP - Alternate 02/13/18 03/16/21 Tremaine Shankar MD 1 [facility] 1 [place] [address] PCP - General 06/25/18 03/29/22 documented as of this encounter
--- OUTSIDE RECORDS SUMMARY | 2024-06-16 15:25 | XMS_ITS | Encounter Summary ---
Author Organization [facility] Address [address] [place] [address] Care Team Providers Care Volleyball Assistant Coach Name Role Phone Rita Kahn DO Unavailable [phone] Tremaine Shankar MD Primary Care Provider + Reason for Visit * Reason Onset Date Comments Medications Refill 07/01/2018 Haldol Encounter Details Date Type Department Care Team (Late st Contact Info) Description 07/01/2018 Refill [facility] Adult Primary Care [facility] 1 [place], [place] [id number] Tremaine Shankar MD 1 [facility] Level 1 [place] [address] Medications Refill (Haldol) Social History Tobacco Use Types Packs/Day Years [...] Dispensed Refills Start Date End Da te haloperidol (HALDOL) 5 mg tablet Take 1 Tab by mouth 2 times daily. 60 Tab 1 07/02/2018 09/03/2018 documented in this encounter Miscellaneous Notes * Telephone Encounter - Demario Miller DO - 07/02/2018 1129 EDT Prescription signed for 30 days supply. He has follow-up with his PCP in about one month. * Telephone Encounter - Eloina Altamirano - 07/01/2018 1027 EDT Medication(s) Requested: Haldol Preferred Pharmacy: [address] Is patient out of medication? No Last Refill Date: 06/24/18 Last Visit Date with Ordering Provider: 04/22/18 Next Non-Acute Visit Date Scheduled with Care Team: Yes.08/07/18 Eloina Altamirano 07/01/2018 10:28 documented in this encounter Plan of Treatment [...] learn more about your health please visit: https://www.[facility].org/medcenter/Pages/Wellness-Resources/Jxbbedhyz-Iziktc-Ao [facility] e-Center.aspx documented as of this encounter Visit Diagnoses Not on filedocumented in this encounter Discontinued Medications Medication Sig Discontinue Reason Start Date End Da te haloperidol (HALDOL) 5 mg tablet Take 1 Tab by mouth 2 times daily. Reorder 06/24/2018 07/01/2018 documented as of this encounter Care Teams Volleyball Assistant Coach Relationship Specialty Start Date End Date Rita Kahn DO [address] [place] [address] PCP - Alternate 02/13/18 03/16/21 Tremaine Shankar MD 1 [facility] 1 [place] [address] PCP - General 06/25/18 03/29/22 documented as of this encounter
--- OUTSIDE RECORDS SUMMARY | 2024-06-16 15:25 | XMS_ITS | Encounter Summary ---
Author Organization [facility] Address [address] [place] [address] Care Team Providers Care Dial Printer Name Role Phone Criss Rita Eder DO Unavailable [phone] Tremaine Shankar MD Primary Care Provider + Reason for Visit * Reason Onset Date Comments Medications Refill 08/31/2018 Encounter Details Date Type Department Care Team (Late st Contact Info) Description 08/06/2018 Refill [facility] Adult Primary Care - [place] [address] [place], [place] [phone] Tremaine Shankar MD 1 [facility] Level 1 [place] [address] Medications Refill Social History Tobacco [...] encounter Miscellaneous Notes * Telephone Encounter - Lucy Lewis - 08/06/2018 1255 EST Medication(s) Requested: lorazepam Preferred Pharmacy: [facility] Is patient out of medication? Yes Last Refill Date: 06.24.18 Last Visit Date with Ordering Provider: 04/22/2018 Next Non-Acute Visit Date Scheduled with Care Team: 08/07/2018 Lucy Lewis 08/06/2018 12:55 documented in this encounter Plan of Treatment [...] learn more about your health please visit: https://www[facility].org/medcenter/Pages/Wellness-Resources/Lkpudzcwc-Jhpgzy-Ix [facility] e-Center.aspx documented as of this encounter Visit Diagnoses Not on filedocumented in this encounter Care Teams Dial Printer Relationship Specialty Start Date End Date Rita Kahn DO [address] [place] [address] PCP - Alternate 02/13/18 03/16/21 Tremaine Shankar MD 1 [facility] 1 [place] [address] PCP - General 06/25/18 03/29/22 documented as of this encounter
--- OUTSIDE RECORDS SUMMARY | 2024-06-16 15:25 | XMS_ITS | Encounter Summary ---
Author Organization [facility] Address [address] [place] [address] Care Team Providers Care Hedis Analyst Name Role Phone Tremaine Shankar MD Primary Care Provider + Rita Kahn DO Unavailable Reason for Visit * Reason Onset Date Comments Medications Refill 03/07/2018 Lorazepam Encounter Details Date Type Department Care Team (Late st Contact Info) Description 03/07/2018 Refill [facility] Adult Primary Care [facility] [address] [place], [place] [address] Chirag Simental MD MPH 1 [facility] Level 1 [place] [address] Medications Refill (Lorazepam) Social History Tobacco Use Types Packs/Day Years [...] visiting a doctor's office or shopping? No 01/11/2018 Cognitive Status Response Date of Assessm ent Because of a physical, menta l, or emotional condition, does this person have serious difficulty concentrating, remembering, or making decisions? No 01/11/2018 documented as of this encounter Miscellaneous Notes * Telephone Encounter - Zunilda Woods DO - 03/08/2018 1551 EDT Per both my review and Dr. Aaron' review earlier this week, this patient has not had a prescriptionfor this medication since 2017. It looks like he has an appointment with Psychiatry on 03/12/18 and his new PCP on 03/22/18. I do not authorize a refill of lorazepam at this time. He should discuss this with his providers at his upcoming appointments. Zunilda Woods DO * Telephone Encounter - Eloina Altamirano - 03/08/2018 1010 EDT Medication(s) Requested: Lorazepam Preferred Pharmacy: [facility] Is patient out of medication? Unknown Last Refill Date: 06/04/17 Last Visit Date with Ordering Provider: 02/13/18 Next Non-Acute Visit Date Scheduled with Care Team: Yes.03/22/18 Eloina Altamirano 03/08/2018 10:10 documented in this encounter Plan of [...] about your health please visit: https://www.[facility].org/medcenter/Pages/Wellness-Resources/Thfdbjxgj-Hvjjfo-Ix [facility] e-Center.aspx documented as of this encounter Visit Diagnoses Diagnosis Anxiety- Primary Anxiety state, unspecified documented in this encounter Care Teams Hedis Analyst Relationship Specialty Start Date End Date Tremaine Shankar MD 1 [facility] 1 [place] [address] PCP - General 10/18/15 06/21/18 Rita Kahn DO [address] [place] [phone] PCP - Alternate 02/13/18 03/16/21 documented as of this encounter
--- OUTSIDE RECORDS SUMMARY | 2024-06-16 15:25 | XMS_ITS | Encounter Summary ---
Author Organization [facility] Address [address] [place] [address] Care Team Providers Care Telesales Agent Name Role Phone Tremaine Shankar MD Primary Care Provider + Brittaney Gutiérrez MD PhD Unavailable [phone] Rita Kahn DO Unavailable [phone] Rita Kahn DO Primary Care Provider [phone] Tremaine Shankar MD Primary Care Provider + Dallas Canas MD PhD Unavailable Unavailabl e Reason for Visit * Reason Comments Other Encounter Details Date Type Department Care Team (Late st Contact Info) Description 07/01/2017 [facility] Adult Primary Care [address] [address] Brittaney Gutiérerz MD PhD 111 [facility] Level [address] [place] [address] Other Social History Tobacco Use Types Packs/Day Years [...] No 01/23/2017 documented as of this encounter Ordered Prescriptions Prescription Sig Dispensed Refills Start Date End Da te ARIPiprazole (ABILIFY) 5 mg tabletIndications:Anxiety TAKE 1 TABLET BY MOUTH DAILY 30 Tab 2 07/02/2017 09/26/2017 documented in this encounter Plan of Treatment [...] learn more about your health please visit: https://[facility].org/medcenter/Pages/Wellness-Resources/Ukatojhiw-Wzublo-Gz sourc e-Center.aspx documented as of this encounter Visit Diagnoses Diagnosis Anxiety Anxiety state, unspecified documented in this encounter Discontinued Medications Medication Sig Discontinue Reason Start Date End Da te ARIPiprazole (ABILIFY) 5 mg tabletIndications:Anxiety Take 1 Tab by mouth daily. Reorder 01/23/2017 07/01/2017 documented as of this encounter Care Teams Telesales Agent Relationship Specialty Start Date End Date Tremaine Shankar MD [address] [place] [address] 1 [place] [phone] PCP - General 10/18/15 06/21/18 Brittaney Gutiérrez MD PhD [address] [place] [address] 2 [place] [address] PCP - Alternate 10/21/15 02/12/18 Rita Kahn DO [address] [place] [address] PCP - Alternate 02/13/18 03/16/21 iRta Kahn DO [address] [place] [address] PCP - General 06/22/18 06/24/18 Tremaine Shankar MD [address] [address] PCP - General 06/25/18 03/29/22 Dallas Canas MD PhD [address] [place] [address] PCP - Alternate 03/17/21 03/29/22 documented as of this encounter
--- OUTSIDE RECORDS SUMMARY | 2024-06-16 15:25 | XMS_ITS | Encounter Summary ---
Author Organization [facility] Address [address] [place] [address] Care Team Providers Care Radial Router Operator Name Role Phone Tremaine Shankar MD Primary Care Provider + Rita Kahn DO Unavailable [phone] Rita Kahn DO Primary Care Provider [phone] Tremaine Shankar MD Primary Care Provider + Dallas Canas MD PhD Unavailable Unavailabl e Reason for Visit * Reason Comments Other Encounter Details Date Type Department Care Team (Late st Contact Info) Description 03/03/2018 [facility] Adult Primary Care - [place] 1 [place], [place] [phone] Chirag Simental MD MPH 1 [facility] Level 1 [place] [address] Other Social History Tobacco Use Types Packs/Day [...] No 01/11/2018 documented as of this encounter Ordered Prescriptions Prescription Sig Dispensed Refills Start Date End Da te ARIPiprazole (ABILIFY) 5 mg tabletIndications:Anxiety TAKE ONE TABLET BY MOUTH ONE TIME DAILY 30 Tab 03/05/2018 2018 documented in this encounter Miscellaneous Notes * Telephone Encounter - Huma Saucedo - 03/08/2018 1525 EDT Patient is already scheduled for 03.22. * Telephone Encounter - Rene Lopez RN - 03/07/2018 1602 EDT ?? Thank you for the message. I can re-fill Mr Brannon Aripiprazole. VPMS queried. Mr Brannon was last prescribed 20 tablets lorazepam 06/05/2017. I believe that it would be appropriate for the patient to make a ivzz-qs-oank appointment to be reviewed before a paperscript of lorazepam is offered. Please let me know if you require any additional information. Alejandro Aaron (Routing comment) ?? * Telephone Encounter - Rene Lopez RN - 03/05/2018 1049 EDT Medication(s) Requested: Parvin Weber Preferred Pharmacy: [place] Is patient out of medication? Unknown Last Refill Date: 01/05/18, 06/04/17 Last Visit Date with Ordering Provider: 02/13/18 Next Non-Acute Visit Date Scheduled with Care Team: Yes. RENE LOPEZ RN 03/05/2018 10:49 documented in this encounter Plan of Treatment [...] about your health please visit: https://www.[facility].org/medcenter/Pages/Wellness-Resources/Zzhtxmdcr-Vzslna-Hv sourc e-Center.aspx documented as of this encounter Visit Diagnoses Diagnosis Anxiety Anxiety state, unspecified documented in this encounter Care Teams Radial Router Operator Relationship Specialty Start Date End Date Tremaine Shankar MD [address] [phone] PCP - General 10/18/15 06/21/18 Rita Kahn DO [address] [place] [address] PCP - Alternate 02/13/18 03/16/21 Rita Kahn DO [address] [place] [address] PCP - General 06/22/18 06/24/18 Tremaine Sahnkar MD [address] [phone] PCP - General 06/25/18 03/29/22 Dallas Canas MD PhD [address] [place] [address] PCP - Alternate 03/17/21 03/29/22 documented as of this encounter
--- OUTSIDE RECORDS SUMMARY | 2024-06-16 15:25 | XMS_ITS | Encounter Summary ---
Author Organization [facility] Address [address] [place] [address] Care Team Providers Care Marine Chronometer Assembler Name Role Phone Tremaine Shankar MD Primary Care Provider + Rita Kahn DO Unavailable [phone] Reason for Visit * Reason Comments Other Encounter Details Date Type Department Care Team (Late st Contact Info) Description 03/03/2018 Refill [facility] Adult Primary Care [facility] 1 [place], [place] [phone] Tremaine Shankar MD 1 [facility] Level 1 [place] [phone] Other Social History Tobacco Use Types Packs/Day [...] (DESYREL) 100 mg tabletIndications:Anxiety ,Psychophysiological insomnia TAKE 1 AND 1/2 TABLETS BY MOUTH AT BEDTIME 45 Tab 2 03/05/2018 06/03/2018 documented in this encounter Miscellaneous Notes * Telephone Encounter - Rene Lopez RN - 03/05/2018 1051 EDT Medication(s) Requested: Trazadone Preferred Pharmacy: [facility] Is patient out of medication? Unknown Last Refill Date: 01/05/18 Last Visit Date with Ordering Provider: 02/13/18 Next Non-Acute Visit Date Scheduled with Care Team: Yes. RENE LOPEZ RN 03/05/2018 10:51 documented in this encounter Plan of Treatment [...] more about your health please visit: https://www.[facility].org/medcenter/Pages/Wellness-Resources/Ibgicluvx-Jxyxno-Jc sourc e-Center.aspx documented as of this encounter Visit Diagnoses Diagnosis Anxiety Anxiety state, unspecified Psychophysiological insomnia Persistent disorder of initiating or maintaining sleep documented in this encounter Care Teams Marine Chronometer Assembler Relationship Specialty Start Date End Date Tremaine Shankar MD 1 [facility] Level 1 [place] [phone] PCP - General 10/18/15 06/21/18 Rita Kahn DO [address] [place] [phone] PCP - Alternate 02/13/18 03/16/21 documented as of this encounter
--- OUTSIDE RECORDS SUMMARY | 2024-06-16 15:25 | XMS_ITS | Encounter Summary ---
Author Organization [facility] Address [address] [place] [address] Care Team Providers Care Spinner Hydraulic Name Role Phone Rita Kahn Eder DO Unavailable [phone] Tremaine Shankar MD Primary Care Provider + Dallas Canas MD PhD Unavailable Unavailabl e Reason for Visit * Reason Comments Other Encounter Details Date Type Department Care Team (Late st Contact Info) Description 01/12/2019 Refill [facility] [address] [id number] Tremaine Shankar MD 1 [facility] Level [address] [place] [address] Other Social History Tobacco Use [...] at bedtime 45 tablet 01/14/2019 03/05/2019 documented in this encounter Miscellaneous Notes * Telephone Encounter - Rene Lopez, RN - 01/14/2019 1601 EDT Medication(s) Requested: Trazadone Preferred Pharmacy: [facility] Is patient out of medication? Unknown Last Refill Date: 12/16/18 Last Visit Date with Ordering Provider: 08/07/18 Next Non-Acute Visit Date Scheduled with Care Team: Tara. RENE LOPEZ RN 01/14/2019 16:01 documented in this encounter Plan of Treatment [...] learn more about your health please visit: https://www[email or web address]/medcenter/Pages/Wellness-Resources/Tiwsxuajn-Kwfodm-It sourc e-Center.aspx documented as of this encounter Visit Diagnoses Diagnosis Anxiety Anxiety state, unspecified Psychophysiological insomnia Persistent disorder of initiating or maintaining sleep documented in this encounter Discontinued Medications Medication Sig Discontinue Reason Start Date End Da te traZODone (DESYREL) 100 mg tabletIndications:Anxiet y,Psychophysiological insomnia take 1 and 1/2 tablets by mouth at bedtime Reorder 12/16/2018 01/12/2019 documented as of this encounter Care Teams Spinner Hydraulic Relationship Specialty Start Date End Date Rita Kahn DO [address] [place] [address] PCP - Alternate 02/13/18 03/16/21 Tremaine Shankar MD [address] [phone] PCP - General 06/25/18 03/29/22 Dallas Canas MD PhD [address] [phone] PCP - Alternate 03/17/21 03/29/22 documented as of this encounter
--- OUTSIDE RECORDS SUMMARY | 2024-06-16 15:25 | XMS_ITS | Encounter Summary ---
Author Organization [facility] Address [address] [place] [address] Care Team Providers Care Route Clerk Name Role Phone Rita Kahn Eder DO Unavailable [phone] Tremaine Shankar MD Primary Care Provider + Dallas Canas MD PhD Unavailable Unavailabl e Reason for Visit * Reason Comments Other Encounter Details Date Type Department Care Team (Late st Contact Info) Description 11/11/2018 Refill [facility] Primary [facility] [address] [id number] Tremaine Shankar MD 1 [facility] Level [address] [place] [address] Other Social History Tobacco Use [...] traZODone (DESYREL) 100 mg tabletIndications:Anxiety ,Psychophysiological insomnia take 1 and 1/2 tablets by mouth at bedtime 45 Tab 11/12/2018 12/15/2018 documented in this encounter Miscellaneous Notes * Telephone Encounter - Rene Lopez, RN - 11/12/2018 0926 EST Medication(s) Requested: Trazadone Preferred Pharmacy: [place] Is patient out of medication? Unknown Last Refill Date: 10/12/18 Last Visit Date with Ordering Provider: 08/07/18 Next Non-Acute Visit Date Scheduled with Care Team: No. RENE LOPEZ RN 11/12/2018 9:26 documented in this encounter Plan of Treatment [...] about your health please visit: https://[facility]org/medcenter/Pages/Wellness-Resources/Nhpdesjpb-Rzmykz-Ct sourc e-Center.aspx documented as of this encounter Visit Diagnoses Diagnosis Anxiety Anxiety state, unspecified Psychophysiological insomnia Persistent disorder of initiating or maintaining sleep documented in this encounter Discontinued Medications Medication Sig Discontinue Reason Start Date End Da te traZODone (DESYREL) 100 mg tabletIndications:Anxiet y,Psychophysiological insomnia take 1 and 1/2 tablets by mouth at bedtime Reorder 10/12/2018 11/11/2018 documented as of this encounter Care Teams Route Clerk Relationship Specialty Start Date End Date Rita Kahn DO [address] [place] [phone] PCP - Alternate 02/13/18 03/16/21 Tremaine Shankar MD [address] [phone] PCP - General 06/25/18 03/29/22 Dallas Canas MD PhD [address] [phone] PCP - Alternate 03/17/21 03/29/22 documented as of this encounter
--- OUTSIDE RECORDS SUMMARY | 2024-06-16 15:25 | XMS_ITS | Encounter Summary ---
Author Organization [facility] Address [address] [place] [address] Care Team Providers Care Physician Interventional Cardiologist Name Role Phone Tremaine Shankar MD Primary Care Provider + Brittaney Guitérrez MD PhD Unavailable [phone] Reason for Visit * Reason Comments Other Encounter Details Date Type Department Care Team (Late st Contact Info) Description 06/04/2017 Refill [facility] [address] [phone] Brittaney Gutiérrez MD PhD 111 [facility], [address] [place] [address] Other Social History Tobacco Use [...] 100 mg tabletIndications:Anxiety ,Psychophysiological insomnia TAKE 1 & 1/2 TABLET BY MOUTH AT BEDTIME 45 Tab 2 06/04/2017 09/26/2017 documented in this encounter Plan of [...] your health please visit: https://[email or web address]/medcenter/Pages/Wellness-Resources/Crzmslsum-Puhtfr-Md sourc e-Center.aspx documented as of this encounter Visit Diagnoses Diagnosis Anxiety Anxiety state, unspecified Psychophysiological insomnia Persistent disorder of initiating or maintaining sleep documented in this encounter Discontinued Medications Medication Sig Discontinue Reason Start Date End Da te traZODone (DESYREL) 100 mg tabletIndications:Anxiety ,Psychophysiological insomnia Take 1.5 Tabs by mouth at bedtime. Reorder 01/23/2017 06/04/2017 documented as of this encounter Care Teams Physician Interventional Cardiologist Relationship Specialty Start Date End Date Tremaine Shankar MD 1 [facility] [address] [place] [phone] PCP - General 10/18/15 06/21/18 Brittaney Gutiérrez MD PhD [address] [place] [address] [address] [place] [phone] PCP - Alternate 10/21/15 02/12/18 documented as of this encounter
--- OUTSIDE RECORDS SUMMARY | 2024-06-16 15:25 | XMS_ITS | Encounter Summary ---
Author Organization [facility] Address [address] [place] [address] Care Team Providers Care Building Construction Teacher Name Role Phone Rita Kahn DO Unavailable [phone] Rita Kahn DO Primary Care Provider [phone] Reason for Visit * Reason Comments Insomnia I have just been wa tching the news insomnia, family problems slow response to questions. Per friend patient has not slept for three days, denies SI or HI, Encounter Details Date Type Department Care Team (Late st Contact Info) Description 06/22/2018 16:04 EDT - 06/24/2018 17:50 EDT Emergency [facility] Emergency Department - [address] [id number] Josse Stein MD MSc [address] [phone] Almaz Steel PA-C [address] [phone] Alexa Pope PA-C [address] [place] [id number] Karly Soto PA-C [address] [phone] Zunilda Martínez MD [address] [place] [phone] Doreen Hedrick PA-C [address] [place] [phone] Albaro Tejeda PA-C [address] [place] [phone] Emergency, MD Tristin Psychosis, unspecified psychosis type ([facility]) (Primary Dx) Discharge Disposition: Home or Self [...] Sign Reading Time Taken Comments Blood Pressure 170/96 06/22/2018 1609 EDT Pulse - - Temperature 36.9 ??C (98.4 ??F) 06/22/2018 1609 EDT Respiratory Rate 16 06/22/2018 1609 EDT Oxygen Saturation 98% 06/24/2018 0923 EDT Inhaled Oxygen Concentration - - Weight - - Height 182.2 cm (5' 11.75) 06/22/2018 1609 EDT Body Mass Index - - documented in [...] as of this encounter Discharge Diagnoses Diagnosis F41.9 Anxiety disorder, unspecified-F41.9[ICD-10-CM] F22 Delusional disorders-F22[ICD-10-CM] G47.00 Insomnia, unspecified-G47.00[ICD-10-CM] H53.9 Unspecified visual disturbance-H53.9[ICD-10-CM] G47.33 Obstructive sleep apnea (adult) (pediatric)-G47.33[ICD-10-CM] documented in this encounter Discharge Instructions * Discharge Instructions* Albaro Tejeda PA - 06/24/2018 17:28 EDT Follow-up with your primary care provider this week and/or psychiatrist as listed. * Attachments The following attachments cannot be sent through Care Everywhere. * PSYCHOSIS (FRISIAN) documented in this encounter Medications at Time of Discharge Medication Sig Dispensed Refills Start Date End Date ARIPiprazole (ABILIFY) 5 mg tabletIndications:Anxie ty TAKE ONE TABLET BY MOUTH ONE TIME DAILY 30 Tab 3 2018 08/07/2018 ARIPiprazole (ABILIFY) 5 mg tabletIndications:Anxie ty Take 1 Tab by mouth daily. 30 Tab 01/05/2018 08/07/2018 fluocinonide (LIDEX) 0.05 % ointment Apply topically 2 times daily. Do not apply to face, armpit or groin. 60 g 3 06/05/2017 04/01/2020 haloperidol (HALDOL) 5 mg tablet Take 1 Tab by mouth 2 times daily. 20 Tab 06/24/2018 07/01/2018 LORazepam (ATIVAN) 1 mg tablet Take 1 Tab by mouth every 6 hours. Daily Max: 4 mg 15 Tab 06/24/2018 08/07/2018 melatonin 3 mg tablet TAKE ONE TABLET BY MOUTH EVERY NIGHT AT BEDTIME NEEDED FOR INSOMNIA 30 Tab 3 09/18/2016 04/01/2020 therapeutic hand-body (EUCERIN ORIGINAL) lotion Apply topically as needed. 10/04/2020 traZODone (DESYREL) 100 mg tabletIndications:Anxie ty,Psychophysiological insomnia TAKE 1 AND 1/2 TABLETS BY MOUTH AT BEDTIME 45 Tab 1 06/03/2018 08/07/2018 traZODone (DESYREL) 100 mg tabletIndications:Anxie ty,Psychophysiological insomnia take 1 and 1/2 tablet by mouth at bedtime 45 Tab 01/05/2018 10/12/2018 documented as of this encounter Ordered Prescriptions Prescription Sig Dispensed Refills Start Date End Da te LORazepam (ATIVAN) 1 mg tablet Take 1 Tab by mouth every 6 hours. Daily Max: 4 mg 15 Tab 06/24/2018 08/07/2018 haloperidol (HALDOL) 5 mg tablet Take 1 Tab by mouth 2 times daily. 20 Tab 06/24/2018 07/01/2018 documented in this encounter Discharge Disposition Disposition Code Departure Means Destination Home or Self Care Car Home documented in this encounter Progress Notes * Cody Zhao MD - 06/24/2018 1622 EDT Psychiatry Consultation Follow Up Note Date of Consult: 06/24/2018 Patient Profile: Venkata Zhao 33 y.o. male Reason for Psychiatry Consultation: Paranoia Interval History/Subjective: Events of the last 12 hours were reviewed per documentation and with ED staff. I met with Venkata and his Fiancee, Ai, in the ED. I introduced myself to Venkata, making note that we share a last name. He made intense eye contact and replied, This is about my tweets isn't it?I responded that I was unsure what he was referencing, and he stated, about how Urban Kimberlee was trying to silence the white shit. He did not break eye contact until his fiancee redirected the conversation, saying that Venkata's paranoia seemed to start about one week ago, and was set off [facility]. This triggered many traumatic memories for Venkata, especially, an incident after my dad . . ., which he refused to discuss further. Venkata then asked if he could go home, and we discussed this in some detail. He states that he cameto the ED for help because he was saying concering things and kept asking too many questions and he agrees that he has been more stressed and anxious than at his baseline. His Fiancee Ai was very adamant that he continue to seek treatment at [facility] or [facility], but Venkata is opposed to the idea. He does not believe that hospitalization or going to [facility] will help him get better, and he would prefer to take his medications in the comfort of his own home. I directly confronted his paranoia, and he states that he has found comfort in conspiracy theories during our current times of political un rest. He does not endorse and current SI, and has no intent to harm anyone or use any type of physical force in the name of self defence. We discussed that Abilify 5 mg does not seem to be an appropriate medication and we are more comfortable with him taking Haldol 5 mg BID with 2 mg as a PRN medication. He was amenable to this idea. He states that he has outpatient support in the form of a Primary Care provider who prescribes medications, as well as a counselor who he sees every two weeks. His immediate plan upon returning home is to walk his dog, make dinner for his fiancee, and watch television. He plans to continue to take it easy until he feels good enough to begin driving for [place] again. Medications: Current Facility-Administered Medications: haloperidol (HALDOL) 5 mg tablet haloperidol (HALDOL) tablet 2 mg oral DAILY haloperidol (HALDOL) tablet 5 mg oral QHS LORazepam (ATIVAN) tablet 1 mg oral Q8H PRN traZODone (DESYREL) tablet 150 mg oral QHS Current Outpatient Prescriptions: ARIPiprazole (ABILIFY) 5 mg tablet ARIPiprazole (ABILIFY) 5 mg tablet fluocinonide (LIDEX) 0.05 % ointment LORazepam (ATIVAN) 1 mg tablet melatonin 3 mg tablet therapeutic hand-body (EUCERIN ORIGINAL) lotion traZODone (DESYREL) 100 mg tablet traZODone (DESYREL) 100 mg tablet Objective: Vital Signs: BP (!) 170/96 (BP Cuff Location: Right arm, Patient Position: Sitting) Temp 36.9 ??C (98.4 ??F) (Oral) Resp 16 Ht 182.2 cm (71.75) SpO2 98% BMI 50.67 kg/m2 Mental Status Examination: Venkata Zhao is a 33 y.o. obese male who appears his stated age. He is wearing a tie-dyed cat T-shirt and paper scrub pants. Their behavior was guarded, with intense eye contact, but otherwise cooperative. He appeared distressed, but in a tense calm before the storm manner. No psychomotor dist urbances or abnormal/involuntary movements. Speech is latent, with monotone and an otherwise normalrhythm and volume. Stated mood is okay, and affect is flat, restricted, and non-reactive. Thoughtprocess is linear with tight associations. Thought content is bizarre and future-oriented with overt paranoia, no grandiosity, or obsessions. No SI or HI noted. He appears at times to be responding to internal stimuli. Patient is alert and oriented; language, cognition, and memory are grossly intact. Insight appears fair. Judgement appears fair. Assessment: Patient meets criteria for emergency examination and should not be allowed to leave the emergency department: Tara Zhao is a 33 y.o. male with a history of unspecified psychotic disorder and one prior hospitalization who presents with 4 days of disorganized behavior and paranoid ideation concerning for brief psychotic disorder vs. Schizophrenia spectrum illness. He presented with severe disorganization of thought, restricted affect, and delusional paranoid beliefs. He has accepted Haldol and ativan which has helped with his symptoms. At this time he does not pose a threat to self or others, although he continues to have paranoid and disorganized thoughts. Ideally he would remain inpatient for treatment, but this is not the patient's wish. We have provided recommendations regarding medications, outpatient follow up, and return precautions. Primary Diagnosis: Psychosis NOS; rule out schizophrenia vs delusional disorder vs depression with psychotic features. Recommendations: Current Stay - Continue 1:1 observation (MHT if possible) - Please offer support and kindness, if this fails see recommendations below. - For behavioral emergency, consider haloperidol 5 mg and lorazepam 2 mg PO or IM x1 Disposition Prescriptions/Appointments - Prescribe Haldol 5 mg BID with 2 mg daily PRN. - Prescribe Lorazepam 1 mg q6h PRN - Schedule follow up visit with PCP Rita Kahn D.O. - Schedule follow up visit with Counselor, Lul Boyd. Disposition: - Patient is refusing inpatient treatment voluntarily and does not appear to meet EE criteria as heis not demonstrating a threat to self or others. - Patient may discharge to home, presumably with Gasper Cloud. - Patient should return to ED if paranoia worsens, and his Finile Cloud should have a low threshold for calling [facility] for [facility] if there is a crisis @ [phone] Thank you for the consult. Do not hesitate to contact psychiatry with any questions. Please call me with any questions or concerns. Thanks, Cody Zhao MD PGY-1 Psychiatry Pager: [phone] Associated attestation - Raymond Silva DO - 06/24/2018 2009 EDT Attending Attestation I saw and examined the patient with Dr. Zhao 06/24/2018. I agree with the findings and plan of care documented in his note. Venkata is clearly quite psychotic and would benefit from psychiatric admission so that we can adjust medications accordingly and give him the opportunity to clear from the symptoms. Unfortunately, he is not willing to accept this recommendation. Also not interested in remaining voluntarily in the ED for further treatment or going to [facility] as alternatives. His fiancee ispart of this conversation, and similarly does not have success in helping convince him. In terms ofrisk, he remains quite psychotic, but is denying SI or HI. Has not behaved in a frankly dangerous ma nner that would indicate he requires hospitalization over his objections. It does appear that the haloperidol we have been using in the ED is of greater utility than the previous aripiprazole. We recommend that he continue to take this moving forward, and we will reach outto his PCP regarding it as well. Gait stable. Occasional non-sequitors and repetitive phrasing in his thought process. Ongoing paranoid delusions. Denies SI or HI. Denies AVH, but responds internally. Attention limited, poor concentration. Sleeping and eating adequately. My edits to the note above, if present, are OLIVE. Raymond Silva DO 06/24/2018 20:00 * Leni Wick, RT - 06/24/2018 0346 EDT Respiratory Nocturnal BIPAP/CPAP Heart Rate: 97 BPM, Resp: 16, SpO2: 100 %, Breath Sounds Bilateral: Clear Patient was placed on Non-Invasive Ventilation Device Type: Respironics, Settings were 16/4 auto PS0. Pt tolerating well Comments: RT Brenna 06/24/18 * Sebastian Haley, - 06/23/2018 1846 EDT Patient placed on auto-titrate CPAP. documented in this encounter Consult Notes * Joe Espinal MD - 06/23/2018 0213 EDT Psychiatry Consultation Date of Consult: 06/23/2018 Patient Profile: Venkata Zhao 33 y.o. male Reason for Psychiatry Consultation: Bizarre behavior and thoughts Chief complaint(s) & onset (pt's own words): Do you treat fantastical thinking? History of Present Illness: Informants: patient, yanni Sanabria, [facility] records The patient is found laying on his bed with eyes closed, joined by his fiance and her friend, who state he's not sleeping. When verbally prompted several times, he finally opens one eye and just stares at me. When initially asked questions he responds with unrelated statements including Are you a doctor? F.....A.........Ntastical thinking. When asked why he is here he responds A prostitutegave me a hug after I said hello to a homeless person Per his fiance, last weekend the patient began to mention remembering some repressed memories, and wanted to talk to his therapist. Per her, he saw his therapist on Sunday, and then couldn't sleepstarting on Sunday and hasn't slept since Sunday and hasn't been eating much at home either. She notes he has had at least one prior episode similar to this back in 2011 when he was admitted [place] time to the psychiatric hospital in [place]. Otherwise had been doing well recently. She reports he has continued to take his medications as prescribed, however given that he has not slept she gave him a little extra trazodone yesterday and has been giving him 2mg of lorazepam at night instead of the 1mg he is prescribed to try and help him sleep. She denies any recent injury, ,sickness, orchanges in medication prior to this episode. She reports his talking as not making sense, that she couldn't make sense of much of what he has been saying since Sunday, and that he has been mentioning that the air conditioner has been talking to him. For additional collateral see First call assessment in field note by clinician Adry Leon on 06/22/18, located under the scans tab in [facility]. Later in the morning Venkata was threatening toward his provider and security was called, he then postured toward them and received IM haloperidol without incident. Psychiatric Review of Systems: Patient unable to respond P N (P=present, N=not present) Depression Hypomania/fe Panic Anxiety Obsessions/compulsions Phobia Dissociation General Review of Systems: patient unable to respond Pos Neg ROS Constitutional Eyes Ears, nose, throat Cardiovascular Respiratory Gastrointestinal Genitourinary Musculoskeletal Integumentary Neurological Endocrine Hematologic Allergic Past Psychiatric History: Per yanni diagnosed previously with brief psychotic disorder in 2012 Past self harm or suicide attempts: Yanni denies Past violence toward others: None known Past hospitalization: aYnni reports he has had one hospitalization in [place] in 2012 due to similar psychosis[place] Current meds: 5mg qHS aripiprazole, trazodone 150mg qHS, lorazepam 1mg prn qDay- prescribed by PCP Rita Kahn. Sees therapist Lul Salguero in [place] (office near top of [facility]) Medical/Surgical History: No past medical history on file.- has NIA, uses CPAP regularly No past surgical history on file. Patient Active Problem List Diagnosis Date Noted ??? Acute left ankle pain 04/08/2018 Priority: Medium ??? Anxiety 06/20/2016 Priority: Medium ??? Primary insomnia 05/10/2016 Priority: Medium ??? NIA (obstructive sleep apnea) 10/29/2015 Priority: Medium ??? Morbid obesity ([facility]) 10/29/2015 Priority: Medium ??? Psychotic episode 10/29/2015 Priority: Medium ??? Scalp cyst 08/25/2015 Priority: Medium ??? Eczema 07/14/2015 Priority: Medium ??? Allergic rhinitis 12/05/2007 Class: Permanent Medications: No current facility-administered medications for this encounter. Current Outpatient Prescriptions: ARIPiprazole (ABILIFY) 5 mg tablet ARIPiprazole (ABILIFY) 5 mg tablet fluocinonide (LIDEX) 0.05 % ointment LORazepam (ATIVAN) 1 mg tablet melatonin 3 mg tablet therapeutic hand-body (EUCERIN ORIGINAL) lotion traZODone (DESYREL) 100 mg tablet traZODone (DESYREL) 100 mg tablet Substance Use/Abuse Info. (etoh,drugs,tobacco,caffine) Alcohol: yanin denies he uses Recreational Drugs: yanni denies he uses Tobacco: yanni denies he uses Family History: Per yanni: schizoaffective disorder in his sister, schizophrenia in his father. Mother with possibly undiagnosed depression. Family history of by suicide: yanni denies Developmental, Interpersonal & Social History: Patient unable to answer given ongoing psychosis. Yanni reports they live together, denies he usesany substances aside from using DMT a few times over 10 years ago. Vital Signs: IP vitals No data found. Mental Status Examination: Robust young adult male lying recumbent in bed wearing home tshirt and pants. Limited interaction, often closes eyes for extended periods despite no evidence of sleep and then will open one eye and briefly respond to questioning. Piercing stare when establishes eye contact. Displays no psychomotor r etardation/agitation. Speech is limited in spontaneity, terse, normal rate and rhythm. Cognition isgrossly impaired. Mood is unstated Affect is flat. Thought process is disorganized, with some blocking. Thought content is notable for delusions of being watched by spies for Trump. Denies SI, deniesHI. Perceptually devoid of AH/VH per own reports however appears to respond to internal stimuli. Insight is poor Judgment is poor. Assessment: Patient meets criteria for emergency examination and should not be allowed to leave the emergency department: He would likely meet EE criteria given his aggressive behavior this morning with posturing and threatening behavior toward staff requiring significant security presence and emergency medications Venkata Zhao is a 33yo M with history of unspecified psychotic disorder and one prior hospitalization who presents with 4 days of disorganized behavior and bizarre thoughts concerning for brief psychotic disorder vs. new presentation of a schizophrenia spectrum illness. He presents with severe disorganization of thought, restricted affect, and delusional belief system along with paranoia consistent with an unspecified psychotic disorder at this time. He meets criteria for inpatient hospitalization due to disorganized behavior, not taking care of basic needs including feeding, and threat to others as evidenced by his threatening behavior in the EDrequiring emergency medications earlier today. Diagnostic Impression: Unspecified psychotic disorder, r/o brief psychotic disorder vs. Schizophrenia spectrum illness vs.Substance induced Recommendations: - increase aripiprazole to 10mg qHS - trazodone 150mg qHS - lorazepam 2mg qHS - UDS 11 - tonight give 2mg lorazepam and 50mg hydroxyzine one time for sleep - In the event of a psychiatric emergency: Haloperidol 10 mg, Lorazepam 2 mg, and Diphenhydramine 50 mg IM x1 Disposition: - patient cannot leave AMA without psychiatric clearance - We will continue to round daily until placement is found Please call with any questions. PCS is available 8am - 5pm at pager [phone], and on-call resident is available weekdays 5pm - 8am and weekends at pager [phone]. Above assessment and plan discussed with on-call Psychiatry Attending, Dr. Enedelia Espinal MD, PhD Band Sawyer, PGY2 [facility] 06/23/18 Associated attestation - Amilcar Mcdaniels MD - 06/23/2018 2340 EDT Attending Attestation: Patient seen and examined on 06/23/18, case d/w Dr Espinal and Dr Rasmussen. I agree with Dr Espinal's findings and recommendations, documented below. Admission would be in Mr Zhao's best interest. He is declining this but is willing to remain in ED for now. He has de-escalated and improved somewhat over the course of the day. He may either restabilize in ED or regain sufficient insight to consent to voluntary admission. Please do not allow AMA discharge without psychiatric re-evaluation. Thank you very much for this consultation. Amilcar Mcdaniels MD, MPH documented in this encounter ED Notes * Albaro Tejeda PA - 06/24/2018 1729 EDT I, Kay Main, am scribing for Albaro Tejeda PA while he/she is personally performing the service. Kay Main 06/24/2018 17:29 Venkata Zhao is a 33 y.o. male who presents to the ED with paranoid delusions. Care and work-up prior to sign out includes physical evaluation and lab work up. I assumed care of patient from Ryley FUENTES with psyche evaluation and disposition pending. Psyche resident evaluated the patient and noted that the patient would benefit from going home. Patient was discharged with Haldol 5 mg bid and lorazepam q6 and was advised to follow up with PCP and or psyche clinic for further care. Benito DA SILVA was available for supervision. Prior to discharge my usual and customary return precautions were reviewed with the patient and/or family. This included follow-up instructions and reasons to return to the Emergency Department if condition worsens, does not improve as expected, or other new concerns arise This documentation is recorded by Kay Main acting as Scribe under the direction and presence of Albaro Tejeda PA. Albaro Tejeda PA: I personally performed the services recorded by the scribe in my presence. I confirm the scribe's documentation has been reviewed by me to accurately and completely record my work, treatment, procedures, and medical decision making. * Najma Nava RN - 06/24/2018 1652 EDT Pt has been anxious today.He agreed to take haldol and ativan this afternoon. Girlfriend has been at bedside today. * Doreen Hedrick PA - 06/24/2018 1600 EDT Venkata Zhao is a 33 y.o. male who presents to the ED with paranoid delusions. Pt with improving ketosis in urine, has been tolerating PO Given Haldol and ativan for anxiety - voluntarily. Pending psychiatry evaluation at 1600 * Najma Nava RN - 06/24/2018 1130 EDT Late entry for 0852 this morning. ALFREDO Hedrick notified of UA results. Pt took 1 pitcher of water andwas provided a second pitcher. Will continue to offer /encourage fluidds. * Najma Nava RN - 06/24/2018 0842 EDT Pt is tearful,crying at times,labile.Encouraged fluids,urine dark courtney. Fiancee at bedside. * Deya Smith RN - 06/24/2018 0452 EDT Patient has been sleeping since approximately 2229 with periods of waking and saying to yanni When are we going home? then he goes back to sleep. * Deya Smith RN - 06/23/2018 2144 EDT I was called back to patient's room. He was lying down talking with his fiance then instantly stoodwith eyes closed and said We got to leave. He walked out in [place] with eyes closed however eventually went back in his room after a great amount of prompting from staff, security, and fiance. He is now sitting on the edge of his bed smiling with eyes opened talking with yanni Sanabria. * Deya Smith RN - 06/23/2018 2113 EDT Venkata took his hs medications. He opened his mouth, this teletypewriter operator placed them in his mouth, but he did not want any water to swallow them down. This teletypewriter operator stayed with him for a few minutes to see if he would spit them out; he did not. Sitter is watching him to ensure he did indeed swallow them. * Deya Smith RN - 06/23/20182034 EDT Informed Yanni Sanabria, that his room was changed. * Deya Smith RN - 06/23/2018 195 EDT Patient was moved to another room. He remained in his bed with CPAP on. He did not open his eyes other than to say one sentence that did not make sense. He did say Thank you after move was made. * Deya Smith RN - 06/23/2018 1912 EDT Patient was seen in his bed agitated. His fimaryjo was crying because of his agitation. She left and said she'd be back later this evening or call. * Deya Smith RN - 06/23/2018 1908 EDT Received report from ANTONI Yoa and assumed care. * Najma Nava RN - 06/23/2018 1718 EDT Pt In bed, in darkened room Family and friend by bedside. Awaiting pt to give urine sample, Pt family is asking for a c-pap for sleep tonight. Will ask provider to see if psych approves. * Karly Guerin PA-C - 06/23/2018 1634 EDT Assumed care from ALFREDO Pope at 16:00. Briefly, this is a 33 year-old male who presents to the ED with paranoid delusions. The patient will have CPAP nightly, as per home medication list. Labs: significant for 3+ on ketones on initial work up, thought to be secondary to poor PO intake at home, plan for recheck of UA Meds: ordered Has been seen by Crisis and Psychiatry Disposition plan: EE'd, disposition plan pending Signed out to ALFREDO Steel at end of shift at 1:00 with disposition pending Emil DA SILVA attending available for consultation. This documentation is recorded by Kay Main acting as Scribe under the direction and presence of Karly Guerin PA-C. Karly Guerin PA-C: I personally performed the services recorded by the scribe in my presence. I confirm the scribe's documentation has been reviewed by me to accurately and completely record my work, treatment, procedures, and medical decision making. * Najma Nava, ANTONI - 06/23/2018 1429 EDT Pt has friend in room who works at [employer] and has asked if pt could be a client for Assist. [facility] will assess pt today when they are available. Family informed that [facility] not immediately available. They can call [phone]. * Najma Nava RN - 06/23/2018 1410 EDT Pt remains in his room, Pt has agreed to put on clean t-shirt. Fiancee is at bedside. Constant observations in place for safety. * Alexa Pope - 06/23/2018 1017 EDT I received pt in sign out from ALFREDO Steel Briefly, 33 yo M presents with paranoid delusions. Seen by crisis prior to arrival and sent to the ED for further evaluation. There were no events during my shift. Patient signed out to ALFREDO Guerin * Najma Nava RN - 06/23/2018 0942 EDT Pt is awake, and states he wants to leave. Pt is resting in bed. One to one constant observations in place outside room for safety. * Deya Smith RN - 06/23/2018 0703 EDT Report given to ANTONI Yao. * Deya Smith RN - 06/23/2018 0439 EDT Venkata is currently sleeping and snoring. Restraints were removed and Venkata remained asleep duringthe removal. * Deay Smith RN - 06/23/2018 0338 EDT Attempted to administer Ativan 2mg and Atarax 50mg PO; he spit them out again. He then stood up andwalked in gonsalez and postured towards staff and took his shirt off. IM Benadryl 50mg, Haldol 5mg, and Ativan 2mg was administered after patient was placed in 4 point restraints. Patient responded well to staff while placing him in restraints and tolerated the injections without difficulty. * Deya Smith RN - 06/23/2018 0127 EDT Patient is still waiting for psych. Venkata said Is this how you treat fantastical thinking? He remains awake and according to his fiance, this will be night 4 of no sleeping. A recliner was provided for fiance. * Almaz Steel PA - 06/23/2018 0043 EDT I, Yonathan Franco, am scribing for Almaz Steel PA while he/she is personally performing the service. Yonathan Franco 06/23/2018 0:43 Venkata Zhao is a 33 y.o. male who presents to the ED with 3 days of insomnia, paranoid delusions, decreased appetite, and post-prandial emesis secondary to anxiety. He was evaluated by Crisis BIKE DESIGNER and was sent here for further evaluation by Psychiatry. He is currently voluntary, but cannot leave the ED. Prior to sign out the patient received lab studies. He was treated with oral Ativan. I assumed care of patient from Josse Stein MD with Psychiatry evaluation pending. After I assumed care the patient had a Psychiatry evaluation. 2:29 Spoke with Psychiatry who recommended 10 mg Abilify, 2 mg Ativan, 50 mg hydroxyzine, and 150 mg trazodone at bedtime. Patient treated with 2 mg Ativan and 50 mg hydroxyzine. 3:00 On [id number] revaluation, the patient is non-redirectable, refusing oral medication, and was physically threatening. 3:28 The patient attempted to leave his room and was thus placed in four-point restraints and given10 mg IM Haldol, 2 mg IM Ativan, and 50 mg IM Haldol. Patient was signed out to ALFREDO Pope at change of shift with placement pending. This documentation is recorded by Yonathan Franco acting as Scribe under the direction and presenceof Almaz Steel PA. Almaz Steel PA: I personally performed the services recorded by the scribe in my presence. I confirm the scribe's documentation has been reviewed by me to accurately and completely record my work, treatment, procedures, and medical decision making. Dr. Jenkins was available for supervision. * Deya Smith RN - 06/22/2018 2046 EDT Psych still has not responded or seen patient. This teletypewriter operator keeps getting called back to his room due to fiance and friend wanting to know when psych will be there because he is anxious and more bizarre. * Deya Smith RN - 06/22/2018 1933 EDT Patient was seen in his room sitting up in bed eating his dinner. Fiance and friend at bedside. He has good eye contact, delayed speech, and bizarre statements/questions. He asked me if I wanted to share his meal. He asked if I conspiracy theories make me uncomfortable. I told him I didn't know much about them. I then asked him what conspiracy is he talking about. He said If I spell it will you know. Q A I informed him I do not know. Venkata then squinted his eyes and moved his face closer to mine. His fiance then stepped in and said You're not making sense again. Just know I am here and you are ok. Fiance and friend asked what the procedure is here and when crisis or psych will be there to talk with him. I told them I would try to find out. * Najma Nava, ANOTNI - 06/22/2018 1840 EDT Pt had good response to ativan. Pt watching television and agreed to order dinner. Nereidaance and friend in room at bedside. Pt remains with 1:[address] outside room * Beck Leonardo - 06/22/2018 1718 EDT Blood drawn via butterfly needle per protocol, tiger and purple tube(s) sent to lab per order. * Josse Stein MD - 06/22/2018 1633 EDT DOS: 06/22/2018 Chief Complaint Patient presents with ??? Insomnia I have just been watching the news insomnia, family problems slow response to questions. Per friend patient has not slept for three days, denies SI or HI, HPI HPI Comments: I, Delilah Kennedy, am scribing for Josse Stein MD while he is personally performing the service. Delilah Kennedy 06/22/2018 16:33 Venkata Zhao is a 33 y.o. male with a history of NIA, psychotic episode, and anxiety who presents with c/o insomnia due to racing, disorganized thoughts. He states he has been up watching the news all night. Yanni states the pt has not slept for at least 3 days and has had a poor appetite due to his erratic thoughts; she states he involuntarily vomits after eating as a result of anxiety. She also notes he has been having paranoid and delusional thoughts, believing people are out to get him, and was very hesitant to come to the ED tonight, as much of his paranoia is related to doctors. Yanni reports the pt told her he was having repressed thoughts coming up the day before his paranoia began. She states this is not the first time this has happened, the last time being May 2016, and the pt has been hospitalized before. He presents here today with his fiance and a friend, the latter of which is a [facility] staff member. Pt denies abdominal pain. Pt is currently prescribed lorazepam and tramadol. He denies drug or EtOH use. The history is provided by the patient, a friend and a significant other. Review of Systems Review of Systems Constitutional: Positive for appetite change (diminished). Gastrointestinal: Positive for nausea and vomiting. Negative for abdominal pain. Psychiatric/Behavioral: Positive for sleep disturbance. Negative for self-injury and suicidal ideas. The patient is nervous/anxious. Paranoia and delusions Denies HI The patient???s past medical, family, and social history was reviewed and updated as needed. Allergies Allergen Reactions ??? Latex, Natural Rubber Vital Signs Temp: 36.9 ??C (98.4 ??F) Temp src: Oral Heart Rate: 97 BPM Resp: 16 SpO2: 100 % BP: (!) 170/96 BP Device: BP Machine Patient Position: Sitting BP Cuff Location: Right arm O2 Device: None (Room air) Physical Exam Constitutional: He appears well-developed and well-nourished. No distress. HENT: Head: Normocephalic and atraumatic. Mouth/Throat: Mucous membranes are normal. Eyes: Pupils are equal, round, and reactive to light. Conjunctivae are normal. Cardiovascular: Normal rate and regular rhythm. Pulmonary/Chest: Effort normal and breath sounds normal. Abdominal: Soft. Bowel sounds are normal. He exhibits no mass. There is no tenderness. There is no rebound and no guarding. Skin: He is not diaphoretic. Psychiatric: His speech is tangential. Guarded, flat affect Making good eye contact Nursing note and vitals reviewed. RESULTS EKG orders: None Radiology orders: None ED Lab Results Labs Reviewed HEPATIC FUNCTION PANEL (ALB,ALK PHOS,ALT,AST,DBIL,TOT KEYANNA,TOT PROT) - Abnormal Result Value Status Albumin 5.2 (*) Final Total Protein 7.8 Final Total Alkaline Phosphatase 81 Final ALT 67 Final AST 40 Final Unconjugated Bilirubin 1.3 (*) Final Conjugated Bilirubin 0.0 Final Bilirubin, Total 1.9 (*) Final BASIC METABOLIC PANEL (BMP) - Abnormal Sodium 140 Final Potassium 3.7 Final Chloride 102 Final CO2 24 Final BUN 11 Final Creatinine 0.90 Final GFR, Calculated 113 Final Calcium 10.0 Final Calculated Calcium 9.0 Final Glucose, Serum 104 (*) Final Fasting? Unknown Final COMPLETE BLOOD COUNT AND DIFFERENTIAL - Abnormal WBC 8.54 Final RBC 5.99 (*) Final Hemoglobin 17.2 Final HCT 49.1 Final MCV 82 Final MCH 28.7 Final MCHC 35.0 Final RDW-CV 12.2 Final RDW-SD 36.4 Final PLT 214 Final MPV 10.5 Final Neutrophils 72.5 Final Lymphocytes 19.8 Final Monocytes 6.7 Final Eosinophils 0.2 Final Basophils 0.6 Final Immature Grans 0.2 Final ABS Neutrophils 6.19 Final ABS Lymphs 1.69 Final ABS Monocytes 0.57 Final ABS Eosinophils 0.02 (*) Final ABS Basophils 0.05 Final ABS Immature Grans 0.02 Final Type of Diff: Automated Final POCT URINE DIPSTICK, CLINITEK - Abnormal Color COURTNEY Final Clarity, UA Clear Final Glucose Neg Final Bilirubin 2+ (*) Final Ketones >=3+ (*) Final Specific Snyder >=1.030 Final Blood Neg Final pH 6.0 Final Protein 2+ (*) Final Urobilinogen 2.0 (*) Final Nitrite Neg Final Leuk Esterase Neg Final Tech ID [id number] Final LIPASE Lipase 89 Final Relevant Data Procedures ED COURSE A medical screening exam was performed. 33 y.o. male with a history of NIA, psychotic episode, and anxiety presents for 3 days of insomnia due to paranoid and delusional thoughts. On exam, the pt's speech was tangential, but he was making good eye contact and answering all questions. Relevant Data Josse Stein's Documentation Comment Time In summary, the patient is a 33-year-old man with a history of anxiety, depression, prior psychosiswho presents at the request of his fianc?? for delusional thoughts, disorganized thinking and paranoid behavior. This has been gradually progressive including insomnia with no sleep over the past 3 days. She states that he has had a decreased appetite and episode of vomiting today as well. Records review shows he does take lorazepam as well as trazodone for sleep. They have not noticed fevers, head injury or substance abuse. On exam, he is awake and alert, hematin apically stable and afebrile. He is guarded, suspicious, exhibits tangential thoughts. He has moist mucous membranes, his heart rate is regular without murmur, lungs are clear to auscultation abdomen is soft, nontender nondistended. He is atraumatic and well-perfused extremities, skin exam is normal. He makes good eye contact and pupils are equal and reactive. He does present to us by way of first call who had plans for involuntary certification given Is increased disorganized, delusional and paranoid thoughts. We will touch base with psychiatry andplan for admission. 06/22 1701 Given 1 mg PO Ativan, after which anxiety improved. Pt meets EE criteria and was put under constantobservation. Pt had labs that were reviewed independently by myself, significant for reassuring findings. Urine was positive for >3+ ketones, 2+ bilirubin, 2+ protein, and 2.0 urobilinogen. Pt was evaluated by Crisis. Home-evaluation report was obtained and reviewed and scanned into his chart. Crisis evaluated psychiatry see the pt in the ED. 19:02 Per nursing staff, pt became more agitated and paranoid, whispering non- coherent sentences inhis yanni's ear. Given a repeat dose of Ativan. Signed out to overnight ALFREDO Steel with Crisis eval pending. ASSESSMENT AND PLAN Final diagnoses: None DISPOSITION: No disposition on file The patient's pain was managed to an [...] departure from the Emergency Department: Stable PCP: Rita Kahn MDM Number of Diagnoses or Management Options Amount and/or Complexity of Data Reviewed Clinical lab tests: ordered and reviewed Independent visualization of images, tracings, or specimens: yes This documentation is recorded by Delilah Kennedy acting as Scribe under the direction and presence of Josse Stein MD. Josse Stein MD: I personally performed the services recorded by the scribe in my presence. I confirm the scribe's documentation has been reviewed by me to accurately and completely record my work, treatment, procedures, and medical decision making. 06/22/2018 16:33 No flowsheet data found. * Najma Nava RN - 06/22/2018 1632 EDT This teletypewriter operator Introduced self to pt. I asked pt when he slept last and pt only stared at this teletypewriter operator.Offered pt food, family stated that would be good, that pt has not eaten in 3 days. Pt asked why hehad not eaten, pt states because I have been watching the news Affect is flat,but intense. documented in this encounter Plan of Treatment [...] more about your health please visit: [email or web address] documented as of this encounter Procedures Procedure Name Priority Date/Time Associated Diagnosis Comments POCT URINE DIPSTICK, CLINITEK STAT 06/24/2018 8:52 EDT CPAP CONTINUOUS - RT Routine 06/23/2018 18:28 EDT POCT URINE DIPSTICK, CLINITEK STAT 06/22/2018 18:29 EDT COMPLETE BLOOD COUNT AND DIFFERENTIAL STAT 06/22/2018 17:00 EDT LIPASE STAT 06/22/2018 17:00 EDT HEPATIC FUNCTION PANEL (ALB,ALK PHOS,ALT,AST,DBIL,TOT KEYANNA,TOT PROT) STAT 06/22/2018 17:00 EDT BASIC METABOLIC PANEL (BMP) STAT 06/22/2018 17:00 EDT documented in this encounter Results * (ABNORMAL) POCT URINE DIPSTICK, CLINITEK (06/24/2018 8:52 EDT) Color COURTNEY Yellow 06/24/2018 8:51 EDT [facility] Clarity, UA Clear Clear 06/24/2018 8:51 EDT [facility] Glucose Neg Neg 06/24/2018 8:51 T [facility] Bilirubin 2+(A) Neg 06/24/2018 8:51 [facility] Ketones 1+(A) Neg 06/24/2018 8:51 EDT [facility] Specific Snyder 1.025 1.001 - 1.035 06/24/2018 8:51 T [facility] Blood Neg Neg 06/24/2018 8:51 T [facility] pH 6.0 4.6 - 8.0 06/24/2018 8:51 T [facility] Protein 1+(A) Neg 06/24/2018 8:51 [facility] Urobilinogen 2.0(H) 0.2 - 1.0 mg/dL 06/24/2018 8:51 [facility] Nitrite Neg Neg 06/24/2018 8:51 T [facility] Leuk Esterase Neg Neg 06/24/2018 8:51 [facility] technical planner ID [id number] 06/24/2018 8:51 T [facility] Comment:Test performed at [facility] Department Urine specimen (specimen) URINE / Unknown 06/24/2018 8:52 EDT 06/24/2018 8:51 EDT Karly Soto PA-C POINT OF CARE T EST ORDERABLES Performing Organization Address City/State/[facility] Co de Phone Number [facility] [address] [place] [address] * (ABNORMAL) POCT URINE DIPSTICK, CLINITEK (06/22/2018 18:29 EDT) Color COURTNEY Yellow 06/22/2018 18:26 [facility] Clarity, UA Clear Clear 06/22/2018 18:26 [facility] Glucose Neg Neg 06/22/2018 18:26 [facility] Bilirubin 2+(A) Neg 06/22/2018 18:26 [facility] Ketones >=3+(AA) Neg 06/22/2018 18:26 [facility] Specific Snyder >=1.030 1.001 - 1.035 06/22/2018 18:26 [facility] Blood Neg Neg 06/22/2018 18:26 [facility] pH 6.0 4.6 - 8.0 06/22/2018 18:26 [facility] Protein 2+(A) Neg 06/22/2018 18:26 [facility] Urobilinogen 2.0(H) 0.2 - 1.0 mg/dL 06/22/2018 18:26 T [facility] Nitrite Neg Neg 06/22/2018 18:26 T [facility] Leuk Esterase Neg Neg 06/22/2018 18:26 [facility] technical planner ID [id number] 06/22/2018 18:26 T [facility] Comment:Test performed at Em [facility] Department Urine specimen (specimen) URINE / Unknown 06/22/2018 18:29 EDT 06/22/2018 18:26 EDT Josse Stein MD MSc POINT OF CARE YRIS T ORDERABLES Performing Organization Address City/State/[facility] Co de Phone Number [facility] [address] [place] [phone] * (ABNORMAL) COMPLETE BLOOD COUNT AND DIFFERENTIAL (06/22/2018 17:00 EDT) WBC 8.54 4.0 - 10.4 K/cmm 06/22/2018 17:28 [facility] RBC 5.99(H) 4.36 - 5.78 M/cmm 06/22/2018 17:28 [facility] Hemoglobin 17.2 13.8 - 17.3 gm/dl 06/22/2018 17:28 [facility] HCT 49.1 39.5 - 50.2 % 06/22/2018 17:28 [facility] MCV 82 81 - 95 fl 06/22/2018 17:28 [facility] MCH 28.7 27.6 - 33.0 pg 06/22/2018 17:28 [facility] MCHC 35.0 32.8 - 36.4 gm/dl 06/22/2018 17:28 [facility] RDW-CV 12.2 <14.2 % 06/22/2018 17:28 [facility] RDW-SD 36.4 <46.0 fl 06/22/2018 17:28 [facility] PLT 214 141 - 377 K/cmm 06/22/2018 17:28 [facility] MPV 10.5 9.5 - 12.7 fl 06/22/2018 17:28 [facility] % Neutrophils 72.5 % 06/22/2018 17:28 [facility] % Lymphocytes 19.8 % 06/22/2018 17:28 [facility] % Monocytes 6.7 % 06/22/2018 17:28 [facility] % Eosinophils 0.2 % 06/22/2018 17:28 [facility] % Basophils 0.6 % 06/22/2018 17:28 [facility] % Immature Grans 0.2 % 06/22/2018 17:28 [facility] ABS Neutrophils 6.19 2.20 - 8.85 K/cmm 06/22/2018 17:28 [facility] ABS Lymphs 1.69 1.09 - 3.30 K/cmm 06/22/2018 17:28 [facility] ABS Monocytes 0.57 0.1 - 0.8 K/cmm 06/22/2018 17:28 [facility] ABS Eosinophils 0.02(L) 0.03 - 0.61 K/cmm 06/22/2018 17:28 [facility] ABS Basophils 0.05 0.01 - 0.11 K/cmm 06/22/2018 17:28 [facility] ABS Immature Grans 0.02 0 - 0.06 K/cmm 06/22/2018 17:28 [facility] Type of Diff: Automated 06/22/2018 17:28 [facility] Blood specimen (specimen) BLOOD SPECIMEN / Unknown 06/22/2018 17:00 EDT 06/22/2018 17:19 EDT Josse Stein MD MSc PACKAGES & DNA MI OBE ORDERABLES [facility] [address] [place] [address] * (ABNORMAL) BASIC METABOLIC PANEL (BMP) (06/22/2018 17:00 EDT) Sodium 140 136 - 145 mEq/L 06/22/2018 17:52 [facility] Potassium 3.7 3.5 - 5.0 mEq/L 06/22/2018 17:52 [facility] Chloride 102 96 - 110 mEq/L 06/22/2018 17:52 [facility] CO2 24 22 - 32 mEq/L 06/22/2018 17:52 [facility] BUN 11 10 - 26 mg/dl 06/22/2018 17:52 [facility] Creatinine 0.90 0.66 - 1.25 mg/dl 06/22/2018 17:52 [facility] GFR, Calculated 113 >60 ml/min/1.7 3m2 06/22/2018 17:52 [facility] Comment: eGFR calculated using CKD-EPI equation for non Americans. Multiply eGFR by 1.16 for Americans. Calcium 10.0 8.5 - 10.5 mg/dl 06/22/2018 17:52 [facility] Calculated Calcium 9.0 8.5 - 10.5 mg/dl 06/22/2018 17:52 [facility] Glucose, Serum 104(H) 70 - 100 mg/dl 06/22/2018 17:52 [facility] Fasting? Unknown 06/22/2018 17:19 [facility] Blood specimen (specimen) BLOOD SPECIMEN / Unknown 06/22/2018 17:00 EDT 06/22/2018 17:19 EDT Josse Stein MD MSc CHEMISTRY & BLOOD GAS ORDERABLES [facility] [address] [place] [address] * (ABNORMAL) HEPATIC FUNCTION PANEL (ALB,ALK PHOS,ALT,AST,DBIL,TOT KEYANNA,TOT PROT) (06/22/2018 17:00 EDT) Albumin 5.2(H) 3.4 - 4.9 g/dl 06/22/2018 17:52 T [facility] Total Protein 7.8 6.3 - 8.2 g/dl 06/22/2018 17:52 [facility] Total Alkaline Phosphatase 81 38 - 126 U/L 06/22/2018 17:52 [facility] ALT 67 21 - 72 U/L 06/22/2018 17:52 [facility] AST 40 15 - 46 U/L 06/22/2018 17:52 [facility] Unconjugated Bilirubin 1.3(H) 0.0 - 1.1 mg/dl 06/22/2018 17:52 [facility] Conjugated Bilirubin 0.0 0.0 - 0.3 mg/dl 06/22/2018 17:52 [facility] Bilirubin, Total 1.9(H) <1.4 mg/dl 06/22/20 18 17:52 [facility] Blood specimen (specimen) BLOOD SPECIMEN / Unknown 06/22/2018 17:00 EDT 06/22/2018 17:19 EDT Josse Stein MD MSc CHEMISTRY & BLOOD GAS ORDERABLES Performing Organization Address [facility] Co de Phone Number [facility] [address] [place] [address] * LIPASE (06/22/2018 17:00 EDT) Lipase 89 <251 U/L 06/22/2018 17:52 EDT [facility] Blood specimen (specimen) BLOOD SPECIMEN / Unknown 06/22/2018 17:00 EDT 06/22/2018 17:19 EDT Josse Stein MD MSc CHEMISTRY & BLOOD GAS ORDERABLES Performing Organization Address [facility] Co de Phone Number [facility] [address] [place] [address] documented in this encounter Visit Diagnoses Diagnosis Psychosis, unspecified psychosis type (HCC-CMS)- Primary documented in this encounter Administered Medications Inactive Administered Medications - up to 3 most recent administrations Medication Order MAR Action Action Date Dose Rate Site diphenhydrAMINE (BENADRYL) injection 50 mg 50 mg, intramuscular, NOW X1, 1 dose, On 06/23/18 at 0315, STAT Given 06/23/2018 3:38 EDT 50 mg Right Vastus Lateralis haloperidol (HALDOL) 5 mg tablet 1 dose, Starting on 06/24/18 at 1618, Until 06/24/18 at 1950 haloperidol (HALDOL) tablet 2 mg 2 mg, oral, DAILY, First dose on 06/24/18 at 0900, Until Discontinued, Routine Given 06/24/2018 8:31 EDT 2 mg haloperidol (HALDOL) tablet 2.5 mg 2.5 mg, oral, NOW X1, 1 dose, On 06/24/18 at 1630, STAT Given 06/24/2018 16:25 EDT 2.5 mg haloperidol (HALDOL) tablet 5 mg 5 mg, oral, AT BEDTIME, First dose on 06/23/18 at 2100, Until Discontinued, Routine Given 06/23/2018 21:11 EDT 5 mg haloperidol lactate (HALDOL) injection 10 mg 10 mg, intramuscular, NOW X1, 1 dose, On 06/23/18 at 0315, STAT Given 06/23/2018 3:20 EDT 10 mg Right Vastus Lateralis hydrOXYzine (ATARAX) 25 mg tablet 1 dose, Starting on 06/23/18 at 0319, Until 06/23/18 at 0326 Given 06/23/2018 3:26 EDT 50 mg LORazepam (ATIVAN) 1 mg tablet 1 dose, Starting on 06/24/18 at 1615, Until 06/24/18 at 1950 LORazepam (ATIVAN) injection 2 mg 2 mg, intramuscular, NOW X1, 1 dose, On 06/23/18 at 0315, STAT Given 06/23/2018 3:30 EDT 2 mg Left Vastus Laterali s LORazepam (ATIVAN) tablet 1 mg 1 mg, oral, NOW X1, 1 dose, On 06/22/18 at 1700, STAT Given 06/22/2018 17:17 EDT 1 mg LORazepam (ATIVAN) tablet 1 mg 1 mg, oral, NOW X1, 1 dose, On 06/22/18 at 1915, STAT Given 06/22/2018 19:20 EDT 1 mg LORazepam (ATIVAN) tablet 1 mg 1 mg, oral, EVERY 8 HOURS PRN, Starting on Sun06/24/18 at 1445, Until Sun06/24/18 at 1950, Anxiety, STAT LORazepam (ATIVAN) tablet 1 mg 1 mg, oral, NOW X1, 1 dose, On 06/24/18 at 1615, STAT Given 06/24/2018 16:23 EDT 1 mg traZODone (DESYREL) tablet 150 mg 150 mg, oral, AT BEDTIME, First dose on 06/23/18 at 0245, Until Discontinued, STAT Given 06/23/2018 21:11 EDT 150 mg documented in this encounter Discontinued Medications Medication Sig Discontinue Reason Start Date End Da te LORazepam (ATIVAN) 1 mg tabletIndications:Anxiet y Take 0.5 Tabs by mouth as needed for Anxiety (limit use to acute anxiety attcks). Daily Max: 1 mg 04/22/2018 06/24/2018 documented as of this encounter Active and Recently Administered Medications Times are shown in EDT. Scheduled Medication Order 06/22/2018 06/23/2018 06/24/2018 diphenhydrAMINE (BENADRYL) injection 50 mg (COMPLETED) 50 mg, intramuscular, NOW X1, 1 dose, On 06/23/18 at 0315, STAT 0338 (Given - Provider: Deya Smith RN) haloperidol (HALDOL) tablet 2 mg 2 mg, oral, DAILY, First dose on Sun06/24/18 at 0900, Until Discontinued, Routine 0831 (Given - Provider: Najma Nava RN) haloperidol (HALDOL) tablet 2.5 mg (COMPLETED) 2.5 mg, oral, NOW X1, 1 dose, On 06/24/18 at 1630, STAT 1625 (Given - Provider: Najma Nava RN - Comment: now order) haloperidol (HALDOL) tablet 5 mg 5 mg, oral, AT BEDTIME, First dose on 06/23/18 at 2100, Until Discontinued, Routine 211 (Given - Provider: Deya Smith RN) haloperidol lactate (HALDOL) injection 10 mg (COMPLETED) 10 mg, intramuscular, NOW X1, 1 dose, On 06/23/18 at 0315, STAT 0320 (Given - Provider: Deya Smith RN) LORazepam (ATIVAN) injection 2 mg (COMPLETED) 2 mg, intramuscular, NOW X1, 1 dose, On 06/23/18 at 0315, STAT 0330 (Given - Provider: Deya Smith RN) LORazepam (ATIVAN) tablet 1 mg (COMPLETED) 1 mg, oral, NOW X1, 1 dose, On 06/22/18 at 1700, STAT 1717 (Given - Provider: Najma Nava RN) LORazepam (ATIVAN) tablet 1 mg (COMPLETED) 1 mg, oral, NOW X1, 1 dose, On 06/22/18 at 1915, STAT 1920 (Given - Provider: Deya Smith RN) LORazepam (ATIVAN) tablet 1 mg (COMPLETED) 1 mg, oral, NOW X1, 1 dose, On 06/24/18 at 1615, STAT 1623 (Given - Provider: Najma Nava RN) traZODone (DESYREL) tablet 150 mg 150 mg, oral, AT BEDTIME, First dose on 06/23/18 at 0245, Until Discontinued, STAT 0327 (Not Given - Provider: Deya Smith RN - Reason: Patient/family refused)2111 (Given - Provider: Deya Smith RN) PRN Medication Order 06/22/2018 06/23/2018 06/24/2018 LORazepam (ATIVAN) tablet 1 mg 1 mg, oral, EVERY 8 HOURS PRN, Starting on 06/24/18 at 1445, Until 06/24/18 at 1950, Anxiety, STAT 1623 (Not Given - Pr ovider: Najma Nava RN - Reason: Other - Comment: now order not prn) No Frequency Medication Order 06/22/2018 06/23/2018 06/24/2018 haloperidol (HALDOL) 5 mg tablet 1 dose, Starting on 06/24/18 at 1618, Until 06/24/18 at 1950 1630 (Not Given - Provider: Najma Nava RN - Reason: Other - Comment: 2.5 mg ordered) hydrOXYzine (ATARAX) 25 mg tablet (COMPLETED) 1 dose, Starting on 06/23/18 at 0319, Until 9/30/18 at 0326 0326 (Given - Provider: Deya Smith, ANTONI) LORazepam (ATIVAN) 1 mg tablet 1 dose, Starting on Sun06/24/18 at 1615, Until Sun06/24/18 at 1950 documented in this encounter Orders Medications Ordered That Rajinder ht Not Have Been Administered Count Last Ordered Date First Ordered Date haloperidol (HALDOL) 5 mg tablet 1 06/24/20 18 haloperidol (HALDOL) tablet 2 mg 1 06/24/20 18 LORazepam (ATIVAN) tablet 1 mg 1 06/24/2018 ARIPiprazole (ABILIFY) tablet 10 mg 1 06/23 hydrOXYzine (ATARAX) tablet 50 mg 1 018 LORazepam (ATIVAN) tablet 2 mg 1 06/23/2018 Respiratory Care Count Last Ordered Date First Ordered Date CPAP CONTINUOUS- FACE MASK - RT 8 documented in this encounter Care Teams Building Construction Teacher Relationship Specialty Start Date End Date Rita Kahn DO [address] [place] [address] PCP - Alternate 02/13/18 03/16/21 Rita Kahn DO [address] [place] [address] PCP - General 06/22/18 06/24/18 documented as of this encounter
--- OUTSIDE RECORDS SUMMARY | 2024-06-16 15:25 | XMS_ITS | Encounter Summary ---
Author Organization [facility] Address [address] [place] [address] Care Team Providers Care Picker Feeder Name Role Phone Rita Kahn Eder DO Unavailable [phone] Tremaine Shankar MD Primary Care Provider + Reason for Visit * Reason Onset Date Comments Labs Only 09/10/2018 Urine drug scree n Encounter Details Date Type Department Care Team (Late st Contact Info) Description 09/10/2018 Telephone [facility] Adult Primary Care [facility] [address] [place], [place] [id number] Tremaine Shankar MD 1 [facility] Level 1 [place] [address] Labs Only (Urine drug screen) Social History Tobacco Use Types Packs/Day Years [...] encounter Miscellaneous Notes * Telephone Encounter - Charline Donohue RN - 09/12/2018 1628 EST Images from the original note were not included. Pt advised urine test was ordered and will go to the lab to drop off sample. He will call us to getresults so he can either turkey picker results to bring to [facility] or have us fax them a copy. Pt agreed with plan and verbalized understanding with no barriers noted. Charilne Donohue RN 09/12/2018 16:31 Rita Kahn, DO Charline Donohue RN ?? Urine drug screen order is signed * Telephone Encounter - Charline Donohue RN - 09/10/2018 1628 EST Spoke with pt, he states [facility] doesn't want to do the Urine drug test because the recommend a second green party run the test then who did the physical to clear him to work. He states he would bring a copy of the results to them. He needs to get this done in the next 2 weeks. Will ask provider if they will order this. * Telephone Encounter - Huma Saucedo - 09/10/2018 1439 EST Patient is calling because he went to [facility] for a Physical for work. Patient is asking for a urine drug screen. Patient states during the conversation at [facility] he mentioned that he smokes Marijuana. Patient states he needs to have this in order to start his new job. documented in this encounter Plan of Treatment [...] please visit: https://www.[facility].org/medcenter/Pages/Wellness-Resources/Xhpvkmgvj-Jowcsb-Ql sourc e-Center.aspx documented as of this encounter Results * DRUG SCREEN 11, URINE (09/12/2018 16:56 EST) Amphetamine Screen Negative screen. 09/12/2018 20:18 [facility] Comment: Confirmation testing available upon request. Suitable for medical purposes only. Will not detect all drugs within class. Cutoff = 500 ng/ml Specimen type is urine. Barbituate Screen Negative screen. 09/12/2018 20:18 [facility] Comment: Confirmation testing available upon request. Suitable for medical purposes only. Will not detect all drugs within class. Cutoff = 200 ng/ml Specimen type is urine. Benzodiazepine Scrn Negative screen. 09/12/2018 20:18 [facility] Comment: Confirmation testing available upon request. Suitable for medical purposes only. Will not detect all drugs within class. Cutoff = 150 ng/ml Specimen type is urine. Cannabinoids Screen Presumptive positive, interpret with caution. 09/12/2018 20:18 [facility] Comment: Confirmation testing available upon request. Suitable for medical purposes only. Will not detect all drugs within class. Cutoff = 50 ng/ml Specimen type is urine. Methadone Screen Negative screen. 09/12/2018 20:18 [facility] Comment: Confirmation testing available upon request. Suitable for medical purposes only. Will not detect all drugs within class. Cutoff = 200 ng/ml Specimen type is urine. Opiates Screen Negative screen. 09/12/2018 20:18 [facility] Comment: Confirmation testing available upon request. Suitable for medical purposes only. Will not detect all drugs within class. Cutoff = 100 ng/ml Specimen type is urine. Oxycodone Screen Negative screen. 09/12/2018 20:18 [facility] Comment: Confirmation testing available upon request. Suitable for medical purposes only. Will not detect all drugs within class. Cutoff = 100 ng/ml Specimen type is urine. Cocaine Metabolites Negative screen. 09/12/2018 20:18 [facility] Comment: Confirmation testing available upon request. Suitable for medical purposes only. Will not detect all drugs within class. Cutoff = 150 ng/ml Specimen type is urine. Buprenorph and Metab Negative screen. 09/12/2018 20:18 EST [facility] Comment: Confirmation testing available upon request. Suitable for medical purposes only. Will not detect all drugs within class. Cutoff = 10 ng/ml Specimen type is urine. Methamphetamine Scrn Negative screen. 09/12/2018 20:18 EST [facility] Comment: Confirmation testing available upon request. Suitable for medical purposes only. Will not detect all drugs within class. Cutoff = 500 ng/ml Specimen type is urine. Propoxyphene Screen Negative screen. 09/12/2018 20:18 EST [facility] Comment: Confirmation testing available upon request. Suitable for medical purposes only. Will not detect all drugs within class. Cutoff = 300 ng/ml Specimen type is urine. Urine specimen (specimen) URINE / Unknown 09/12/2018 16:56 EST 09/12/2018 19:52 EST Tremaine Shankar MD GEN LAB UNIT COL LECT ORDERABLES [facility] [address] [place] [address] documented in this encounter Visit Diagnoses Diagnosis Drug screening, pre-employment- Primary Health examination of defined subpopulation documented in this encounter Care Teams Picker Feeder Relationship Specialty Start Date End Date Rita Kahn DO [address] [place] [address] PCP - Alternate 02/13/18 03/16/21 Tremaine Shankar MD 1 [facility] Level [address] [place] [address] PCP - General 06/25/18 03/29/22 documented as of this encounter
--- OUTSIDE RECORDS SUMMARY | 2024-06-16 15:25 | XMS_ITS | Encounter Summary ---
Author Organization [facility] Address [address] [place] [address] Care Team Providers Care Broom Machine Operator Name Role Phone Criss Rita Eder DO Unavailable [phone] Tremaine Shankar MD Primary Care Provider + Reason for Visit * Reason Comments Other Encounter Details Date Type Department Care Team (Late st Contact Info) Description 09/01/2018 [facility] Adult Primary Care - [address] [id number] Demario Miller DO 111 [facility], Level [address] [place] [address] Other Social History Tobacco Use [...] encounter Miscellaneous Notes * Telephone Encounter - Karlee Cheatham RN - 09/03/2018 1700 EST Images from the original note were not included. Raymond Campuzano MD ??Given Xander Lynch Rn 38 minutes ago (16:21) Please delete the Haldol order. I was able to refuse it but could not delete it. (Routing comment) Above copied from routing message: Discontinued Haldol from chart, listed reason alternate therapy Haldol is correctly listed as medication refused. Routing to Dr. Adams for review. * Telephone Encounter - Raymond May - 09/03/2018 1616 EST Haldol order not refilled. Per chart review, patient's Haldol was discontinued at his last visit with his PCP, Dr. Kahn, on 08/07/18. At that time he was restarted on Abilify for management of his brief psychiatric episode. * Telephone Encounter - Rene Lopez RN - 09/03/2018 1558 EST Medication(s) Requested: Haldol Preferred Pharmacy: [facility] Is patient out of medication? Unknown Last Refill Date: 07/02/18 Last Visit Date with Ordering Provider: 08/07/18 Next Non-Acute Visit Date Scheduled with Care Team: Tara. RENE LOPEZ RN 09/03/2018 15:58 documented in this encounter Plan of Treatment [...] learn more about your health please visit: https://www.[facility].org/medcenter/Pages/Wellness-Resources/Wjeivgcfr-Crgycq-Gd sourc e-Center.aspx documented as of this encounter Visit Diagnoses Not on filedocumented in this encounter Discontinued Medications Medication Sig Discontinue Reason Start Date End Da te haloperidol (HALDOL) 5 mg tablet Take 1 Tab by mouth 2 times daily. Alternate therapy 07/02/2018 09/03/2018 documented as of this encounter Care Teams Broom Machine Operator Relationship Specialty Start Date End Date Rita Kahn DO [address] [place] [address] PCP - Alternate 02/13/18 03/16/21 Tremaine Shankar MD 1 [facility] Level [address] [place] [address] PCP - General 06/25/18 03/29/22 documented as of this encounter
--- OUTSIDE RECORDS SUMMARY | 2024-06-16 15:25 | XMS_ITS | Encounter Summary ---
Author Organization [facility] Address [address] [place] [address] Care Team Providers Care Paralegal Legal Secretary Name Role Phone Tremaine Shankar MD Primary Care Provider + Brittaney Gutiérrez MD PhD Unavailable [phone] Rita Kahn DO Unavailable [phone] Rita Kahn DO Primary Care Provider [phone] Tremaine Shankar MD Primary Care Provider + Dallas [place] MD PhD Unavailable Unavailabl e Reason for Visit * Reason Comments Other Encounter Details Date Type Department Care Team (Late st Contact Info) Description 09/26/2017 [facility] Adult Primary Care [address] [address] Martha Martin MD [address] [place] [phone] Other Social History Tobacco Use Types Packs/Day [...] BY MOUTH ONE TIME DAILY 30 Tab 1 09/27/2017 11/27/2017 documented in this encounter Miscellaneous Notes * Telephone Encounter - Rene Lopez RN - 09/27/2017 0855 EST Medication(s) Requested: Gus Preferred Pharmacy: [facility] Is patient out of medication? Unknown Last Refill Date: 07/02/17 Last Visit Date with Ordering Provider: 06/13/17 Next Non-Acute Visit Date Scheduled with Care Team: No. RENE LOPEZ RN 09/27/2017 8:55 documented in this encounter Plan of Treatment [...] more about your health please visit: https://www.[facility].org/medcenter/Pages/Wellness-Resources/Jaashnolw-Hfopkl-Qm [facility] e-Center.aspx documented as of this encounter Visit Diagnoses Diagnosis Anxiety Anxiety state, unspecified documented in this encounter Discontinued Medications Medication Sig Discontinue Reason Start Date End Da te ARIPiprazole (ABILIFY) 5 mg tabletIndications:Anxiet y TAKE 1 TABLET BY MOUTH DAILY Reorder 07/02/2017 09/26/2017 documented as of this encounter Care Teams Paralegal Legal Secretary Relationship Specialty Start Date End Date Tremaine Shankar MD 1 [facility] 1 [place] [address] PCP - General 10/18/15 06/21/18 Brittaney Gutiérrez MD PhD [address] [place] [address] [address] [place] [phone] PCP - Alternate 10/21/15 02/12/18 Rita Kahn DO [address] [place] [address] PCP - Alternate 02/13/18 03/16/21 Rita Kahn DO [address] [place] [address] PCP - General 06/22/18 06/24/18 Tremaine Shankar MD 1 [facility] 1 [place] [phone] PCP - General 06/25/18 03/29/22 Dallas [place]as MD PhD [address] [place] [phone] PCP - Alternate 03/17/21 03/29/22 documented as of this encounter
--- OUTSIDE RECORDS SUMMARY | 2024-06-16 15:25 | XMS_ITS | Encounter Summary ---
Author Organization [facility] Address [address] [place] [address] Care Team Providers Care Network Control Operators Supervisor Name Role Phone Rita Kahn DO Unavailable [phone] Tremaine Shankar MD Primary Care Provider + Dallas [place] MD PhD Unavailable Unavailabl e Reason for Visit * Reason Onset Date Comments Medications Refill 08/08/2018 Encounter Details Date Type Department Care Team (Late st Contact Info) Description 08/08/2018 Refill [facility] Adult Primary Care [facility] 1 [place], [place] [address] Tremaine Shankar MD 1 [facility] Level [address] [place] [address] Medications Refill Social History Tobacco [...] mouth at bedtime 45 Tab 08/12/2018 09/15/2018 documented in this encounter Miscellaneous Notes * Telephone Encounter - Claudia Chester MD - 08/12/2018 1620 EST Medication refilled -Claudia Chester * Telephone Encounter - Natacha Henderson - 08/12/2018 1544 EST Pt calling to check the status of this refill request. Leaving for holiday travel tomorrow 08/12/18. * Telephone Encounter - Brittaney Clark RN - 08/09/2018 1128 EST Medication(s) Requested: Trazodone 100 mg tablet Preferred Pharmacy: [address] Is patient out of medication? Unknown Last Refill Date: 01/05/18 this was only for a one month supply. Gap in refill pattern noted. RecentOV note on 08/07/18 does mention that he is taking 150 mg nightly. Routing refill request to Rita Kahn DO who is here this afternoon. Last Visit Date with Ordering Provider: 08/07/18 Next Non-Acute Visit Date Scheduled with Care Team: Yes. 10/08/18 Psychiatry follow up with Dr. Hardik Clark RN 08/09/2018 11:29 documented in this encounter Plan of Treatment [...] learn more about your health please visit: https://www.[facility].org/medcenter/Pages/Wellness-Resources/Qoouykcpy-Exjywz-Ld sourc e-Center.aspx documented as of this encounter Visit Diagnoses Diagnosis Anxiety Anxiety state, unspecified Psychophysiological insomnia Persistent disorder of initiating or maintaining sleep documented in this encounter Care Teams Network Control Operators Supervisor Relationship Specialty Start Date End Date Rita Kahn DO [address] [place] [phone] PCP - Alternate 02/13/18 03/16/21 Tremaine Shankar MD [address] [phone] PCP - General 06/25/18 03/29/22 Dallas [place]as MD PhD [address] [address] PCP - Alternate 03/17/21 03/29/22 documented as of this encounter
--- OUTSIDE RECORDS SUMMARY | 2024-06-16 15:25 | XMS_ITS | Encounter Summary ---
Author Organization [facility] Address [address] [place] [address] Care Team Providers Care Geological Survey Field Assistant Name Role Phone Tremaine Shankar MD Primary Care Provider + Rita Kahn DO Unavailable [phone] Reason for Visit * Reason Onset Date Comments Letter for School/Work 02/13/2018 Encounter Details Date Type Department Care Team (Late st Contact Info) Description 02/13/2018 Telephone [facility] Adult Primary Care [facility] 1 [place], [place] [phone] Tremaine Shankar MD 1 [facility] Level [address] [place] [address] Letter for School/Work Social History Tobacco Use Types Packs/Day Years [...] Telephone Encounter - Charline Donohue RN - 02/25/2018 0904 EDT Left message for pt to call back to discuss Dr. Gonzalez's note and let him know paperwork is ready(it is in Triage room but we need to talk to him first). Left message 02/22/18 and again 02/25/18. * Telephone Encounter - Annie Porras - 02/21/2018 1636 EDT Patient would like to speak with a nurse to go over Dr. Gutiérrez's recommendations. Dr. Gutiérrez not available to speak with. * Telephone Encounter - Adriane Champagne RN - 02/14/2018 1643 EDT Received paperwork- will consult PCP (form is in PCP mailbox) * Telephone Encounter - Aide Aguilera - 02/14/2018 1556 EDT Mr. Zhao leaves [place] paperwork from [employer] at the front end loader driver for completion. States he was told during a phone call to bring this in. * Telephone Encounter - Brittaney Gutiérrez MD PhD - 02/14/[address] Mcdaniels about basics of this case, specifically the question of medications to controlincreasing anxiety and depression in a patient who has a history of psychosis on a stable dose of Abilify and trazodone at night. Dr. Mcdaniels reviewed briefly this patient's history especially Dr. Cam evaluation of him back in June 2016. He suggested caution in SSRIs or SNRIs in this patient with poorly differentiated prior psychosis as there seems to have been some activating factors and symptoms when he was first hospitalized. He suggested that at times patients who are beginning to destabilize on Abilify may feel anxiety as their first symptom of a building episode of psychosis, and as such recommended increasing the Abilify dose to 7.5 mg daily. Suggested close follow-up 2-3 weeks after this increase, and if the patient's anxiety and depression were not improving suggested one of 3 options: -Add bupropion, starting with a low 100 mg daily dose. Upsides or this medication is less likely toset off a manic episode, downside being it may not be as effective for anxiety -Start a low-dose SSRI such as 25 mg sertraline, with close follow-up for serotonergic symptoms such as tremor, sweating, nausea with concomitant use of trazodone. If any these should occur, he coulddecrease the dose of sertraline or trazodone -Consider BuSpar as a single agent for anxiety Dr. Mcdaniels also suggested better wraparound services for the patient including possible referral to the [facility] short-term intensive partial inpatient therapy. If the patient does not want to orcannot participate in this program, ideally he would be able to go back to [facility] as she would likely qualify for any of their services. I called the patient to discuss these recommendations, however was unable to reach him. Left a voicemail for him to call back. Brittaney Gutiérrez MD PHD 02/14/2018 13:42 * Telephone Encounter - Annie Porras - 02/13/2018 1640 EDT Patient is calling in to state that he was supposed to ask for a letter to excuse him from work today at his office visit but he forgot. He is asking for this and he will come pick it up. He also states that Dr. Gutiérrez was supposed to call him and she has not. documented in this encounter Plan of Treatment [...] more about your health please visit: https://www.[facility].org/medcenter/Pages/Wellness-Resources/Mektsanmu-Onyvje-Qd sourc e-Center.aspx documented as of this encounter Visit Diagnoses Not on filedocumented in this encounter Care Teams Geological Survey Field Assistant Relationship Specialty Start Date End Date Tremaine Shankar MD 1 [facility] Level [address] [place] [address] PCP - General 10/18/15 06/21/18 Rita Kahn DO [address] [place] [address] PCP - Alternate 02/13/18 03/16/21 documented as of this encounter
--- OUTSIDE RECORDS SUMMARY | 2024-06-16 15:25 | XMS_ITS | Encounter Summary ---
Author Organization [facility] Address [address] [place] [address] Care Team Providers Care Jig Filler Name Role Phone Kahn Rita Eder DO Unavailable [phone] Tremaine Shankar MD Primary Care Provider + Dallas Canas MD PhD Unavailable Unavailabl e Reason for Visit * Reason Comments Other Encounter Details Date Type Department Care Team (Late st Contact Info) Description 12/15/2018 Refill [facility] Primary Care [facility] [address] [id number] Chirag Simental MD MPH [address] [address] Other Social History Tobacco Use Types [...] tablets by mouth at bedtime 45 tablet 12/16/2018 01/12/2019 documented in this encounter Miscellaneous Notes * Telephone Encounter - Rene Lopez RN - 12/16/2018 1632 EDT Medication(s) Requested: Trazadone Preferred Pharmacy: [place] Is patient out of medication? Unknown Last Refill Date: 11/12/18 Last Visit Date with Ordering Provider: 08/07/18 Next Non-Acute Visit Date Scheduled with Care Team: Tara. RENE LOPEZ RN 12/16/2018 16:32 documented in this encounter Plan of Treatment [...] learn more about your health please visit: https://www.[facility].org/medcenter/Pages/Wellness-Resources/Gtxctmyhq-Bphjre-Cx sourc e-Center.aspx documented as of this encounter Visit Diagnoses Diagnosis Anxiety Anxiety state, unspecified Psychophysiological insomnia Persistent disorder of initiating or maintaining sleep documented in this encounter Discontinued Medications Medication Sig Discontinue Reason Start Date End Da te traZODone (DESYREL) 100 mg tabletIndications:Anxiet y,Psychophysiological insomnia take 1 and 1/2 tablets by mouth at bedtime Reorder 11/12/2018 12/15/2018 documented as of this encounter Care Teams Jig Filler Relationship Specialty Start Date End Date Rita Kahn DO [address] [place] [address] PCP - Alternate 02/13/18 03/16/21 Tremaine Shankar MD [address] [phone] PCP - General 06/25/18 03/29/22 Dallas Canas MD PhD [address] [address] PCP - Alternate 03/17/21 03/29/22 documented as of this encounter
--- OUTSIDE RECORDS SUMMARY | 2024-06-16 15:25 | XMS_ITS | Encounter Summary ---
Author Organization [facility] Address [address] [place] [address] Care Team Providers Care Hide Buffer Name Role Phone Tremaine Shankar MD Primary Care Provider + Rita Kahn DO Unavailable [phone] Reason for Visit * Reason Comments Ankle Injury left ankle Encounter Details Date Type Department Care Team (Late st Contact Info) Description 04/08/2018 15:15 EDT Office Visit [facility] Adult Primary Care [address] [id number] Unknown, Provider, Elizabeth Duong MD [facility], [place] [address] [place] [address] Acute left ankle pain (Primary Dx) Discharge Disposition: Auto Discharge Social [...] Sign Reading Time Taken Comments Blood Pressure 126/80 04/08/2018 1518 EDT Pulse 80 04/08/2018 1518 EDT Temperature 37.1 ??C (98.7 ??F) 04/08/2018 1518 EDT Respiratory Rate 16 04/08/2018 1518 EDT Oxygen Saturation - - Inhaled Oxygen Concentration - - Weight 164.2 kg (362 lb) 04/08/2018 1518 EDT per pt Height - - Body Mass Index 50.49 02/13/2018 1319 EDT documented in this encounter Functional Status [...] No 01/11/2018 documented as of this encounter Discharge Diagnoses Diagnosis M25.572 Pain in left ankle-M25.572[ICD-10-CM] documented in this encounter Patient Instructions * Patient Instructions* Marciano Addison - 04/08/2018 15:15 EDT Conservative therapy with rest, ice, compression, elevation, and an aspirin. If the pain does not get better in 3 days then go get a foot xray at [facility] or [facility]. documented in this encounter Discharge Disposition Disposition Code Departure Means Destination Auto Discharge documented in this encounter Progress Notes * Marciano Addison - 04/08/2018 1515 EDT [facility] Acute Care Visit Date of Service: 04/08/2018 Subjective/HPI Patient ID Venkata Zhao is an 33 y.o. male who presents today with chief complaint of Ankle Injury (left ankle) Just was walking on the bike path yesterday (04/07/2018) when he stepped off the path into the gravel to let a bike or past by. When he stepped off he rolled his left ankle and felt a sharp pain. He has pain with weight bearing that is a 7/10. Pain is a 0/10 once he takes weight of his foot. He is still able to walk around and the pain is bearable. He denies any loss of feeling or discoloration in the foot. He has not tried to take any NSAIDs or pain relievers. He has no other complaints and states that his anxiety is ok (follow up question from previous visit), is feeling happier, and was just engaged (wedding in July). He has a scheduled appointmenton April 22. Denies chest pain, headaches, shortness of breath, abdominal pain, Review of Systems: Pertinent ROS in HPI Outpatient Prescriptions Marked as Taking for the 04/08/18 encounter (Office Visit) with Marciano Addison Medication Sig Dispense Refill ??? ARIPiprazole (ABILIFY) 5 mg tablet TAKE ONE TABLET BY MOUTH ONE TIME DAILY 30 Tab 3 ??? ARIPiprazole (ABILIFY) 5 mg tablet Take 1 Tab by mouth daily. 30 Tab 0 ??? fluocinonide (LIDEX) 0.05 % ointment Apply [...] BEDTIME NEEDED FOR INSOMNIA 30Tab 3 ??? traZODone (DESYREL) 100 mg tablet TAKE 1 AND 1/2 TABLETS BY MOUTH AT BEDTIME 45 Tab 2 ??? traZODone (DESYREL) 100 mg tablet take 1 and 1/2 tablet by mouth at bedtime 45 Tab 0 Patient Active Problem List Diagnosis ??? Allergic rhinitis ??? Scalp cyst ??? NIA (obstructive sleep apnea) ??? Morbid obesity ([facility]) ??? Psychotic episode ??? Eczema ??? Primary insomnia ??? Anxiety ??? Acute left ankle pain Objective BP 126/80 Pulse 80 Temp 37.1 ??C (98.7 ??F) (Tympanic) Resp 16 Wt (!) 164.2 kg (362 lb) Comment: per pt BMI 50.49 kg/m2 Physical Exam General appearance: alert, cooperative, no distress Skin: Skin color, tempature, turgor normal. No rashes or lesions HEENT: Normocephalic, atraumatic, Lungs: clear to auscultation bilaterally, good air movement throughout Heart: regular rate and rhythm, S1, S2 normal, no murmur, click, rub or gallop Abdomen: soft, non-tender; bowel sounds normal Neurologic: Grossly normal, moving all extremities Extremities: extremities warm, atraumatic, no cyanosis, positive pulses bilat MSK: mild swelling in left ankle, pain on palpation of medial malleolus, pain with passive lateral rotation of foot, Data Review: Labs: I have personally reviewed no new labs Imaging: none Assessment Venkata Zhao is a 33 y.o. male with a has no past medical history on file. who presents today with acute left ankle pain. Plan Acute ankle pain, left, less concerning for fracture due to ability to weight bear. -conservative management with rest, ice, compression, elevation and NSAIDs. -contingency for foot xray if pain doesn't improve in 2-3 days. -left foot xray ordered if needed -was borderline for [place] [facility] for ankle imaging Patient was discussed with Dr. Duong. Marciano Addison, PGY1 [phone] 04/08/2018 16:19 * Elizabeth Duong MD - 04/08/2018 1515 EDT ATTENDING ATTESTATION: I have seen, discussed and examined the patient with the resident at the time of the visit. I agree with the findings and the plan of care documented in the resident's note. ELIZABETH DUONG MD MPH [facility] Internal Medicine Adult Primary Care - [place] documented in this encounter Plan of Treatment [...] about your health please visit: https://www.[facility].org/medcenter/Pages/Wellness-Resources/Dvockrxrn-Mfrlxz-Zj sourc e-Center.aspx documented as of this encounter Visit Diagnoses Diagnosis Acute left ankle pain- Primary documented in this encounter Care Teams Hide Buffer Relationship Specialty Start Date End Date Tremaine Shankar MD 1 [facility] 1 [place] [address] PCP - General 10/18/15 06/21/18 Rita Kahn DO [address] [place] [address] PCP - Alternate 02/13/18 03/16/21 documented as of this encounter
--- OUTSIDE RECORDS SUMMARY | 2024-06-16 15:25 | XMS_ITS | Encounter Summary ---
Author Organization [facility] Address [address] [place] [address] Care Team Providers Care Chair Finisher Name Role Phone Tremaine Shankar MD Primary Care Provider + Brittaney Gutiérrez MD PhD Unavailable [phone] Reason for Visit * Reason Onset Date Comments No Show 07/16/2017 Encounter Details Date Type Department Care Team (Late st Contact Info) Description 07/16/2017 Telephone [facility] Adult Primary Care - [address] [phone] Brittaney Gutiérrez MD PhD [address] [place] [address], [facility] [address] [place] [address] No Show Social History Tobacco Use Types Packs/Day Years [...] No 01/23/2017 documented as of this encounter Miscellaneous Notes * Telephone Encounter - Anca Ta - 07/16/2017 1052 EDT 2nd no show. No show warning letter #1 mailed to the patient. Message left to call the office if he would like to reschedule. * Telephone Encounter - Argelia Avina - 07/16/2017 1049 EDT Patient No Showed appointment today with Dr Gutiérrez documented in this encounter Plan of Treatment Not on file documented as of this encounter Goals Goal Patient Goal Type Associated Problems Recent Progress Patient-Stated? Author Weight Loss General Yes Brittaney Gutirérez MD PhD Note: Goal: Participate in the Community Health Team program to lose >10 lbs of weight Confidence level (1= Not very confident; 10 = Very confident): 6 Sources of support: Community health Team, Family and Therapist Barriers to change: None Counseling was provided to assess readiness, confidence and/or barriers to self- care. To learn more about your health please visit: https://www.[facility].org/medcenter/Pages/Wellness-Resources/Zgmdosage-Pwzkkf-Kc sourc e-Center.aspx documented as of this encounter Visit Diagnoses Not on filedocumented in this encounter Care Teams Chair Finisher Relationship Specialty Start Date End Date Tremaine Shankar MD 1 [facility] 1 [place] [phone] PCP - General 10/18/15 06/21/18 Brittaney Gutiérrez MD PhD [address] [place] [address] [address] [place] [address] PCP - Alternate 10/21/15 02/12/18 documented as of this encounter
--- OUTSIDE RECORDS SUMMARY | 2024-06-16 15:25 | XMS_ITS | Encounter Summary ---
Author Organization [facility] Address [address] [place] [address] Care Team Providers Care Land Clearer Name Role Phone Tremaine Shankar MD Primary Care Provider + Brittaney Gutiérrez MD PhD Unavailable [phone] Reason for Visit * Reason Onset Date Comments Medications Refill 11/28/2017 Encounter Details Date Type Department Care Team (Late st Contact Info) Description 11/28/2017 Refill [facility] Adult Primary Care [facility] 1 [place], [place] [phone] Tremaine Shankar MD 1 [facility] Level [address] [place] [phone] Medications Refill Social History Tobacco Use Types [...] tabletIndications:Anxiety ,Psychophysiological insomnia take 1 and 1/2 tablet by mouth at bedtime 45 Tab 1 11/28/2017 01/05/2018 documented in this encounter Miscellaneous Notes * Telephone Encounter - Huma Saucedo - 11/28/2017 0819 EST Medication(s) Requested: Trazadon Preferred Pharmacy: [place] Is patient out of medication? Unknown Last Refill Date: 09.27.17 Last Visit Date with Ordering Provider: 06.13.17 Next Non-Acute Visit Date Scheduled with Care Team: NoTerry Pradonitzajuan c 11/28/2017 8:19 documented in this encounter Plan of Treatment [...] more about your health please visit: https://www.[facility].org/medcenter/Pages/Wellness-Resources/Pkrxneuna-Gslimo-Xy sourc e-Center.aspx documented as of this encounter Visit Diagnoses Diagnosis Anxiety Anxiety state, unspecified Psychophysiological insomnia Persistent disorder of initiating or maintaining sleep documented in this encounter Discontinued Medications Medication Sig Discontinue Reason Start Date End Da te traZODone (DESYREL) 100 mg tabletIndications:Anxiet y,Psychophysiological insomnia take 1 and 1/2 tablet by mouth at bedtime Reorder 09/27/2017 11/28/2017 documented as of this encounter Care Teams Land Clearer Relationship Specialty Start Date End Date Tremaine Shankar MD 1 [facility] 1 [place] [address] PCP - General 10/18/15 06/21/18 Brittaney Gutiérrez MD PhD 111 [facility], [facility] 2 [place] [phone] PCP - Alternate 10/21/15 02/12/18 documented as of this encounter
--- OUTSIDE RECORDS SUMMARY | 2024-06-16 15:25 | XMS_ITS | Encounter Summary ---
Author Organization [facility] Address [address] [place] [address] Care Team Providers Care Substitute School Nurse Name Role Phone Tremaine Shankar MD Primary Care Provider + Brittaney Gutiérrez MD PhD Unavailable [phone] Reason for Visit * Reason Comments New Patient Visit eczema on right hand * Consult (Routine) - Specialty Report Received Specialty Diagnoses / Procedures Referred By Ada sandhu Referred To Contact Dermatology Diagnoses Eczema, unspecified type Jaky Childers MD [address] [place] [phone] [facility] Dermatology [address] [place] [address] Referral ID Status Reason Start Date Expiration Date Visits Requested Visits Authorized [id number] Specialty Report Received Specialty Services Required 05/14/2017 1 1 Encounter Details Date Type Department Care Team (Late st Contact Info) Description 06/05/2017 15:30 EDT Office Visit [facility] Dermatology 5th [address] [address] Alexa Freitas MD [address] [place] [phone] Stefanie Lamb MD [address] [place] [address] [address] [place] [phone] Dermatitis (Primary Dx) Discharge Disposition: Auto Discharge Social [...] as of this encounter Discharge Diagnoses Diagnosis L30.9 Dermatitis, unspecified-L30.9[ICD-10-CM] documented in this encounter Ordered Prescriptions Prescription Sig Dispensed Refills Start Date End Da te fluocinonide (LIDEX) 0.05 % ointment Apply topically 2 times daily. Do not apply to face, armpit or groin. 60 g 3 06/05/2017 04/01/2020 documented in this encounter Discharge Disposition Disposition Code Departure Means Destination Auto Discharge documented in this encounter Progress Notes * Adriane Brown - 06/05/2017 1530 EDT Review of Systems Constitutional: Negative for fatigue, fever and unexpected weight change. HENT: Negative for mouth sores. Eyes: Negative for pain. Respiratory: Negative for cough and shortness of breath. Cardiovascular: Negative for chest pain and palpitations. Gastrointestinal: Negative for abdominal pain, blood in stool, constipation, diarrhea, nausea and vomiting. Genitourinary: Negative for dysuria, frequency and hematuria. Musculoskeletal: Negative for myalgias, joint swelling, arthralgias and muscle stiffness in the morning. Skin: Positive for rash. Neurological: Negative for numbness and headaches. Endo/Heme/Allergies: Does not bruise/bleed easily. Psychiatric/Behavioral: Negative for sleep disturbance. The patient is not nervous/anxious. Adriane Brown 06/05/2017 15:45 * Stefanie Lamb - 06/05/2017 1530 EDT Dermatology Outpatient Visit Note Chief Complaint Patient presents with ??? New Patient Visit eczema on right hand Dermatologic History: No specialty comments available. Last Dermatology office visit: new patient visit SUBJECTIVE Mr. Zhao is a 32 y.o. male who presents for new evaluation and treatment for rash on the hand. He has had a rash on his right hand that has been present for about 8 years. He sometimes notices pus filled bumps that can crop up monthly or weekly at times. There are some small areas on the left hand too but it is not itchy. He has been using Eucerin. He does not have a history of eczema, seasonal allergies, or asthma. His sister either has eczema or psoriasis on her hands. No one with severearthritis in the family. He does think that it is worse in the winter. 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 For full Medical, Surgical, Family, and Social histories, please see the History section of this encounter in the electronic chart which I have personally reviewed. For Review of Systems, Medications and Allergies, please see those sections of this encounter in the electronic chart which I have also reviewed. He has a current medication list which includes the following prescription(s): aripiprazole, diphenhydramine, fluocinonide, lorazepam, melatonin, therapeutic hand-body, and trazodone. He is allergic to latex, natural rubber. OBJECTIVE VS: There were no vitals taken for this visit. Mr. Zhao is healthy, well developed, well-nourished and in no acute distress male sitting on theexamination table with a normal affect. He is alert and oriented to person, place and time. He has Hicks type I skin. Cutaneous focused exam of the hands and feet was performed.The examination was normal with the addition of the following comments: There were no lesions suspicious for malignancy. - Right central palm and proximal fingers: erythematous plaque with scaling and fissuring - Interdigital spaces: grouped 1.5 mm deep-seated vesicles ASSESSMENT/PLAN - Hand dermatitis: Dishydrotic eczema vs possible irritant vs palmar psoriasis (favor eczema due toitch). Discussed need for reducing wet-dry cycle (wearing gloves while washing dishes, drying handspromptly if they become sweaty). - Prescribed fluocinonide to use for 2 weeks during flares and then to taper down to weekly - Continue moisturizer use, increase frequency- especially right after washing hands - Consider switching to a moisturizer that does not contain lanolin (though he feels that the Eucerin is very helpful to him) He will f/u as planned or in the interim should problems arise. Return in about 3 months (around 09/04/2017). Stefanie Lamb MD 06/05/2017 16:57 Attestation Statement: I saw and examined the patient with the resident/fellow. I agree with the findings and plan of care documented in the resident's/fellow's note. Alexa Freitas MD 06/21/2017 documented in this encounter Plan of Treatment [...] more about your health please visit: https://www.[facility].org/medcenter/Pages/Wellness-Resources/Hqurpgzwf-Yxgerj-Sr [facility] e-Center.aspx documented as of this encounter Visit Diagnoses Diagnosis Dermatitis- Primary Contact dermatitis and other eczema, due to unspecified cause documented in this encounter Care Teams Substitute School Nurse Relationship Specialty Start Date End Date Tremaine Shankar MD [address] [place] [address] 1 [place] [phone] PCP - General 10/18/15 06/21/18 Brittaney Gutiérrez MD PhD [address] [place] [address], [facility], Level [address] [place] [address] PCP - Alternate 10/21/15 02/12/18 documented as of this encounter
--- OUTSIDE RECORDS SUMMARY | 2024-06-16 15:25 | XMS_ITS | Encounter Summary ---
Author Organization [facility] Address [address] [place] [address] Care Team Providers Care Eligibility Supervisor Name Role Phone Tremaine Shankar MD Primary Care Provider + Rita Kahn DO Unavailable [phone] Rita Kahn DO Primary Care Provider [phone] Tremaine Shankar MD Primary Care Provider + Dallas Canas MD PhD Unavailable Unavailabl e Reason for Visit * Reason Comments Other Encounter Details Date Type Department Care Team (Late st Contact Info) Description 02/13/2018 [facility] Adult Primary Care - [place] [address] [place], [place] [phone] Chirag Simental MD MPH 1 [facility] Level [address] [place] [address] Other Social History Tobacco Use [...] encounter Miscellaneous Notes * Telephone Encounter - BrianDavidson - 02/15/2018 0937 EDT I responded directly to patient regarding this refill. He should continue on the dosing schedule that was requested of him at his last appt, without further refills at this time. If he calls again please refer to my previous progress note on him and my reply to his direct message. * Telephone Encounter - Rene Lopez RN - 02/14/2018 1553 EDT Medication(s) Requested: Ativan Preferred Pharmacy: [place] Is patient out of medication? Unknown Last Refill Date: 06/04/17 Last Visit Date with Ordering Provider: 02/13/18 Next Non-Acute Visit Date Scheduled with Care Team: Yes. RENE LOPEZ RN 02/14/2018 15:53 documented in this encounter Plan of Treatment [...] learn more about your health please visit: https://www.[facility].org/medcenter/Pages/Wellness-Resources/Ulzcovufc-Sdorxs-Bv [facility] e-Center.aspx documented as of this encounter Visit Diagnoses Diagnosis Anxiety Anxiety state, unspecified documented in this encounter Care Teams Eligibility Supervisor Relationship Specialty Start Date End Date Tremaine Shankar MD 1 [facility] 1 [place] [address] PCP - General 10/18/15 06/21/18 Rita Kahn DO [address] [place] [address] PCP - Alternate 02/13/18 03/16/21 Rita Kahn DO [address] [place] [address] PCP - General 06/22/18 06/24/18 Tremaine Shankar MD 1 [facility] 1 [place] [phone] PCP - General 06/25/18 03/29/22 Dallas Canas MD PhD [address] [place] [address] PCP - Alternate 03/17/21 03/29/22 documented as of this encounter
--- OUTSIDE RECORDS SUMMARY | 2024-06-16 15:25 | XMS_ITS | Encounter Summary ---
Author Organization [facility] Address [address] [place] [address] Care Team Providers Care Pool Manager Name Role Phone Tremaine Shankar MD Primary Care Provider + Brittaney Gutiérrez MD PhD Unavailable [phone] Reason for Visit * Reason Comments Anxiety Encounter Details Date Type Department Care Team (Late st Contact Info) Description 01/11/2018 11:[address] [facility] Adult Primary Care - [address] [id number] Unknown, Provider, Jaky Childers MD [address] [address] Brittaney Gutiérrez MD PhD [address] [address] Anxiety (Primary Dx); Need for influenza vaccination; Depression, unspecified depression type Discharge Disposition: Auto Discharge Social History Tobacco [...] Sign Reading Time Taken Comments Blood Pressure 100/76 01/11/2018 1108 EDT Pulse 72 01/11/2018 1108 EDT Temperature 36.1 ??C (97 ??F) 01/11/2018 1108 EDT Respiratory Rate 20 01/11/2018 1108 EDT Oxygen Saturation - - Inhaled Oxygen Concentration - - Weight 164.6 kg (362 lb 12.8 oz) 01/11/2018 1108 EDT Height - - Body Mass Index 50.63 10/11/2016 1432 EST documented in this encounter [...] as of this encounter Discharge Diagnoses Diagnosis Z23 Encounter for immunization-Z23[ICD-10-CM] F41.9 Anxiety disorder, unspecified-F41.9[ICD-10-CM] F32.9 Major depressive disorder, single episode, unspecified-F32.9[ICD-10-CM] documented in this encounter Discharge Disposition Disposition Code Departure Means Destination Auto Discharge documented in this encounter Progress Notes * Brittaney Gutiérrez MD PhD - 01/11/2018 1100 EDT Subjective: Patient ID: Venkata Zhao is an 32 y.o. male. No chief complaint on file. AMY Hastings comes in to follow-up in his anxiety. He says he specifically called last week because he had a couple of days where he did not feel like going to work or to school Sunday to home. 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 He feels confident in his job performance and says he enjoys interacting with customers and is good at it. He continues on his Abilify and trazodone at night. He uses lorazepam very sparingly. Patient Active Problem List Diagnosis ??? Allergic rhinitis ??? Scalp cyst ??? NIA (obstructive sleep apnea) ??? Morbid obesity ([facility]) ??? Psychotic episode ??? Eczema ??? Primary insomnia ??? Anxiety Outpatient Prescriptions Marked as Taking for the 01/11/18 encounter (Office Visit) with Brittaney Gutiérrez MD,PHD [...] needed. ??? traZODone (DESYREL) 100 mg tablet take 1 and 1/2 tablet by mouth at bedtime 45 Tab 0 Review of Systems Respiratory: Negative for shortness of breath. Cardiovascular: Negative for chest pain and palpitations. Gastrointestinal: Negative for nausea. Psychiatric/Behavioral: Positive for depression. Negative for hallucinations, substance abuse and suicidal ideas. The patient is nervous/anxious. The patient does not have insomnia. - See HPI Objective: BP 100/76 Pulse 72 Temp 36.1 ??C (97 ??F) (Tympanic) Resp 20 Wt (!) 164.6 kg (362 lb 12.8 oz) BMI 50.63 kg/m2 Physical Exam Constitutional: He appears well-developed and well-nourished. HENT: Mouth/Throat: Oropharynx is clear. Eyes: Conjunctivae are normal. No scleral icterus. Cardiovascular: Normal rate and regular rhythm. No murmur heard. Pulmonary/Chest: Effort normal and breath sounds normal. Psychiatric: His mood appears not anxious. His affect is not angry. He is slowed. He is not agitated, not aggressive and not hyperactive. Thought content is not paranoid and not delusional. Cognitionand memory are not impaired. He does not express impulsivity or inappropriate judgment. He does notexhibit a depressed mood. He expresses no homicidal and no suicidal ideation. Venkata is often latent in his responses but does respond appropriately. He has difficulty verbalizing what motivates his actions such as missing work or school; often answers I don't know. Assessment / Plan: Venkata was seen in follow-up of anxiety. He reports some concern about missing work and school a couple of weeks ago. He has returned to work but is yet to return to his weekly classes. He is uncertain as motivations for not going and cannot put his finger on any specific increased anxiety or depression. His girlfriend suggested he might need an SSRI and HEENT spoke about this with me today. He is reluctant to add any medicines to his regimen at this point. We did a pH Q9 and he scored 8 which is mild depression and again 7 which she scored 9 which is mild anxiety. We will use this as a baseline and have him speak with his therapists in the interim. He will return to clinic in one month or sooner should he have suicidal or self harm ideation, or worsening of his depressive symptoms. She continued to feel he has depressive symptoms or increasing anxiety and think it would be worth sending him back to psychiatry for evaluation to see whether adding an antidepressant to his regimen wouldbe helpful. Diagnoses and all orders for this visit: Anxiety Need for influenza vaccination - [id number] - Influenza Vaccine Quad Preservative Free 0.5 ml IM Depression, unspecified depression type Brittaney Gutiérrez MD,PHD 01/11/2018 12:02 * Jaky Childers MD - 01/11/2018 1100 EDT I discussed the the patient with the resident at the time of the patient's visit. I agree with the findings and plan of care documented in the resident's note. 13:06 01/11/2018 Jaky Childers MD documented in this encounter [...] health please visit: https://www.[facility].org/medcenter/Pages/Wellness-Resources/Zdfbormgb-Tzhcph-Uy sourc e-Center.aspx documented as of this encounter Visit Diagnoses Diagnosis Anxiety- Primary Anxiety state, unspecified Need for influenza vaccination Need for prophylactic vaccination and inoculation against influenza Depression, unspecified depression type documented in this encounter Discontinued Medications Medication Sig Discontinue Reason Start Date End Da te benzonatate (TESSALON) 100 mg capsule Take 1 Cap by mouth 3 times daily as needed for Cough. Patient Stopped Taking 06/13/2017 01/11/2018 diphenhydrAMINE (BENADRYL) 25 mg capsule Take 1-2 Caps by mouth at bedtime as needed for Sleep. Patient Stopped Taking 01/05/2016 01/11/2018 documented as of this encounter Orders Immunization/Injection Count Last Ordered Date First Ordered Date INFLUENZA VACCINE QUAD PRESE RVATIVE FREE 0.5 ML IM 1 01/11/2018 documented in this encounter Care Teams Pool Manager Relationship Specialty Start Date End Date Tremaine Shankar MD 1 [facility] 1 [place] [phone] PCP - General 10/18/15 06/21/18 Brittaney Gutiérrez MD PhD 111 [facility] 2 [place] [address] PCP - Alternate 10/21/15 02/12/18 documented as of this encounter
--- OUTSIDE RECORDS SUMMARY | 2024-06-16 15:25 | XMS_ITS | Encounter Summary ---
Author Organization [facility] Address [address] [place] [address] Care Team Providers Care Carpet Cutter Name Role Phone Tremaine Shankar MD Primary Care Provider + Brittaney Gutiérrez MD PhD Unavailable [phone] Encounter Details Date Type Department Care Team (Late st Contact Info) Description 01/05/2018 Orders Only [facility] Primary Care [facility] [address] [id number] Carlitos Dow MD 1 [facility] 1 [place] [phone] Anxiety; Psychophysiological insomnia Social History Tobacco Use Types Packs/Day Years [...] mouth at bedtime 45 Tab 01/05/2018 10/12/2018 ARIPiprazole (ABILIFY) 5 mg tabletIndications:Anxiety Take 1 Tab by mouth daily. 30 Tab 01/05/2018 08/07/2018 documented in this encounter Progress Notes * Carlitos Dow MD - 01/05/2018 1816 EDT Venkata is out of trazodone and aripiprazole. His regular pharmacy ([facility]) is closed. New Rx sent to [facility], 0 refills as he will get this at [place] in the future. documented in this encounter Plan of Treatment [...] please visit: https://www.[facility].org/medcenter/Pages/Wellness-Resources/Emopvyalp-Oxebyf-El sourc e-Center.aspx documented as of this encounter Visit Diagnoses Diagnosis Anxiety Anxiety state, unspecified Psychophysiological insomnia Persistent disorder of initiating or maintaining sleep documented in this encounter Discontinued Medications Medication Sig Discontinue Reason Start Date End Da te ARIPiprazole (ABILIFY) 5 mg tabletIndications:Anxiet y Take 1 Tab by mouth daily. Reorder 11/27/2017 01/05/2018 traZODone (DESYREL) 100 mg tabletIndications:Anxiet y,Psychophysiological insomnia take 1 and 1/2 tablet by mouth at bedtime Reorder 11/28/2017 01/05/2018 documented as of this encounter Care Teams Carpet Cutter Relationship Specialty Start Date End Date Tremaine Shankar MD 1 [facility] [address] [place] [address] PCP - General 10/18/15 06/21/18 Brittaney Gutiérrez MD PhD 111 [facility] 2 [place] [phone] PCP - Alternate 10/21/15 02/12/18 documented as of this encounter
--- OUTSIDE RECORDS SUMMARY | 2024-06-16 15:25 | XMS_ITS | Encounter Summary ---
Author Organization [facility] Address [address] [place] [address] Care Team Providers Care Buffing Wheel Former Automatic Name Role Phone Tremaine Shankar MD Primary Care Provider + Rita Kahn DO Unavailable [phone] Rita Kahn DO Primary Care Provider [phone] Tremaine Shankar MD Primary Care Provider + Dallas Canas MD PhD Unavailable Unavailabl e Reason for Visit * Reason Comments Other Encounter Details Date Type Department Care Team (Late st Contact Info) Description 2018 [facility] Adult Primary Care - [address] [phone] Alejandro Aaron MBBS 111 [facility], Level [address] [place] [phone] Other Social History Tobacco Use Types Packs/Day [...] TIME DAILY 30 Tab 3 2018 08/07/2018 documented in this encounter Miscellaneous Notes * Telephone Encounter - Rene Lemus RN - 2018 1623 EDT Medication(s) Requested: Abilify Preferred Pharmacy: [facility] Is patient out of medication? Unknown Last Refill Date: 03/05/18 Last Visit Date with Ordering Provider: 02/13/18 Next Non-Acute Visit Date Scheduled with Care Team: Yes. RENE LEMUS RN 2018 16:23 documented in this encounter Plan of Treatment [...] more about your health please visit: https://www.[facility].org/medcenter/Pages/Wellness-Resources/Dargtjoye-Zfpgiu-[facility] e-Center.aspx documented as of this encounter Visit Diagnoses Diagnosis Anxiety Anxiety state, unspecified documented in this encounter Discontinued Medications Medication Sig Discontinue Reason Start Date End Da te ARIPiprazole (ABILIFY) 5 mg tabletIndications:Anxiet y TAKE ONE TABLET BY MOUTH ONE TIME DAILY Reorder 03/05/2018 2018 documented as of this encounter Care Teams Buffing Wheel Former Automatic Relationship Specialty Start Date End Date Tremaine Shankar MD 1 [facility] 1 [place] [address] PCP - General 10/18/15 06/21/18 Rita Kahn DO [address] [place] [address] PCP - Alternate 02/13/18 03/16/21 Rita Kahn DO [address] [place] [address] PCP - General 06/22/18 06/24/18 Tremaine Shankar MD 1 [facility] 1 [place] [phone] PCP - General 06/25/18 03/29/22 Dallas Canas MD PhD [address] [place] [address] PCP - Alternate 03/17/21 03/29/22 documented as of this encounter
--- OUTSIDE RECORDS SUMMARY | 2024-06-16 15:25 | XMS_ITS | Encounter Summary ---
Author Organization [facility] Address [address] [place] [address] Care Team Providers Care Pile Driving Nozzleman Name Role Phone Tremaine Shankar MD Primary Care Provider + Brittaney Gutiérrez MD PhD Unavailable [phone] Reason for Visit * Reason Comments Other Encounter Details Date Type Department Care Team (Late st Contact Info) Description 09/26/2017 Refill [facility] Adult Primary Care [facility] 1 [place], [place] [phone] Chirag Simental MD MPH 1 [facility] Level [address] [place] [address] Other Social History Tobacco Use [...] by mouth at bedtime 45 Tab 1 09/27/2017 11/28/2017 documented in this encounter Miscellaneous Notes * Telephone Encounter - Rene Lopez RN - 09/27/2017 0857 EST Medication(s) Requested: Trazodone Preferred Pharmacy: [facility] Is patient out of medication? Unknown Last Refill Date: 06/04/17 Last Visit Date with Ordering Provider: 06/13/17 Next Non-Acute Visit Date Scheduled with Care Team: No. RENE LOPEZ RN 09/27/2017 8:57 documented in this encounter Plan of Treatment [...] about your health please visit: https://www.[facility].org/medcenter/Pages/Wellness-Resources/Bsmazobqj-Jsgnqh-Io sourc e-Center.aspx documented as of this encounter Visit Diagnoses Diagnosis Anxiety Anxiety state, unspecified Psychophysiological insomnia Persistent disorder of initiating or maintaining sleep documented in this encounter Discontinued Medications Medication Sig Discontinue Reason Start Date End Da te traZODone (DESYREL) 100 mg tabletIndications:Anxiet y,Psychophysiological insomnia TAKE 1 & 1/2 TABLET BY MOUTH AT BEDTIME Reorder 06/04/2017 09/26/2017 documented as of this encounter Care Teams Pile Driving Nozzleman Relationship Specialty Start Date End Date Tremaine Shankar MD 1 [facility] 1 [place] [address] PCP - General 10/18/15 06/21/18 Brittaney Gutiérrez MD PhD 111 [facility], Level [address] [place] [phone] PCP - Alternate 10/21/15 02/12/18 documented as of this encounter
--- OUTSIDE RECORDS SUMMARY | 2024-06-16 15:25 | XMS_ITS | Encounter Summary ---
Author Organization [facility] Address [address] [place] [address] Care Team Providers Care Edge Cutting Machine Operator Name Role Phone KahnRita soriano DO Unavailable [phone] Tremaine Shankar MD Primary Care Provider + Encounter Details Date Type Department Care Team (Late st Contact Info) Description 09/12/2018 Phlebotomy Only [facility] [address] [place] [address] Machine Operator Packaging, Outpatient Drug screening, pre-employment (Primary Dx) Social History Tobacco Use Types [...] visit: https://www.[facility].org/medcenter/Pages/Wellness-Resources/Hhqfizhof-Aitelz-Sv sourc e-Center.aspx documented as of this encounter Procedures Procedure Name Priority Date/Time Associated Diagnosis Comments DRUG SCREEN 11, URINE Routine 09/12/2018 16:56 EST Drug screening, pre-employment documented in this encounter Results * DRUG SCREEN 11, URINE (09/12/2018 16:56 EST) Amphetamine Screen Negative screen. 09/12/2018 20:18 [facility] Comment: Confirmation testing available upon request. Suitable for medical purposes only. Will not detect all drugs within class. Cutoff = 500 ng/ml Specimen type is urine. Barbituate Screen Negative screen. 09/12/2018 20:18 [facility] Comment: Confirmation testing available upon request. Suitable for medical purposes only. Will not detect all drugs within class. Cutoff = 200 ng/ml Specimen type is urine. Benzodiazepine Scrn Negative screen. 09/12/2018 20:18 [facility] Comment: Confirmation testing available upon request. Suitable for medical purposes only. Will not detect all drugs within class. Cutoff = 150 ng/ml Specimen type is urine. Cannabinoids Screen Presumptive positive, interpret with caution. 09/12/2018 20:18 [facility] Comment: Confirmation testing available upon request. Suitable for medical purposes only. Will not detect all drugs within class. Cutoff = 50 ng/ml Specimen type is urine. Methadone Screen Negative screen. 09/12/2018 20:18 [facility] Comment: Confirmation testing available upon request. Suitable for medical purposes only. Will not detect all drugs within class. Cutoff = 200 ng/ml Specimen type is urine. Opiates Screen Negative screen. 09/12/2018 20:18 [facility] Comment: Confirmation testing available upon request. Suitable for medical purposes only. Will not detect all drugs within class. Cutoff = 100 ng/ml Specimen type is urine. Oxycodone Screen Negative screen. 09/12/2018 20:18 [facility] Comment: Confirmation testing available upon request. Suitable for medical purposes only. Will not detect all drugs within class. Cutoff = 100 ng/ml Specimen type is urine. Cocaine Metabolites Negative screen. 09/12/2018 20:18 [facility] Comment: Confirmation testing available upon request. Suitable for medical purposes only. Will not detect all drugs within class. Cutoff = 150 ng/ml Specimen type is urine. Buprenorph and Metab Negative screen. 09/12/2018 20:18 [facility] Comment: Confirmation testing available upon request. Suitable for medical purposes only. Will not detect all drugs within class. Cutoff = 10 ng/ml Specimen type is urine. Methamphetamine Scrn Negative screen. 09/12/2018 20:18 [facility] Comment: Confirmation testing available upon request. Suitable for medical purposes only. Will not detect all drugs within class. Cutoff = 500 ng/ml Specimen type is urine. Propoxyphene Screen Negative screen. 09/12/2018 20:18 [facility] Comment: Confirmation testing available upon request. Suitable for medical purposes only. Will not detect all drugs within class. Cutoff = 300 ng/ml Specimen type is urine. Urine specimen (specimen) URINE / Unknown 09/12/2018 16:56 EST 09/12/2018 19:52 EST Tremaine Shankar MD GEN LAB UNIT COL LECT ORDERABLES Performing Organization Address City/State/[facility] Co de Phone Number [facility] [address] [place] [address] documented in this encounter Visit Diagnoses Diagnosis Drug screening, pre-employment- Primary Health examination of defined subpopulation documented in this encounter Care Teams Edge Cutting Machine Operator Relationship Specialty Start Date End Date Rita Kahn DO [address] [place] [phone] PCP - Alternate 02/13/18 03/16/21 Tremaine Shankar MD 1 [facility] Level 1 [place] [phone] PCP - General 06/25/18 03/29/22 documented as of this encounter
--- OUTSIDE RECORDS SUMMARY | 2024-06-16 15:25 | XMS_ITS | Encounter Summary ---
Author Organization [facility] Address [address] [place] [address] Care Team Providers Care Fiberglass Boat Parts Finisher Name Role Phone Criss Rita Eder DO Unavailable [phone] Tremaine Shankar MD Primary Care Provider + Reason for Visit * Reason Onset Date Comments Letter for School/Work 08/08/2018 Encounter Details Date Type Department Care Team (Late st Contact Info) Description 08/08/2018 Telephone [facility] Adult Primary Care - [place] [address] [place], [place] [phone] Tremaine Shankar MD 1 [facility] Level [address] [place] [address] Letter for School/Work Social History [...] * Telephone Encounter - Huma Saucedo - 08/08/2018 1235 EST Letter has been given to the patient per a message patient received from Dr. Escobedo. * Telephone Encounter - Sheryl Huma - 08/08/2018 1008 EST Patient walked in to state he needs to have a letter MICHELA stating he is able to work with all medications he I taking including mariajuana. Patient is in waiting room waiting for this letter. Patient had to leave but would like a call to come in and pick the letter up once it is completed. documented in this encounter Plan of Treatment [...] your health please visit: https://www.[facility].org/medcenter/Pages/Wellness-Resources/Wrpiapnkk-Jslqmg-So sourc e-Center.aspx documented as of this encounter Visit Diagnoses Not on filedocumented in this encounter Care Teams Fiberglass Boat Parts Finisher Relationship Specialty Start Date End Date Rita Escobedo DO [address] [place] [phone] PCP - Alternate 02/13/18 03/16/21 Tremaine Shankar MD 1 [facility] 1 [place] [phone] PCP - General 06/25/18 03/29/22 documented as of this encounter
--- OUTSIDE RECORDS SUMMARY | 2024-06-16 15:25 | XMS_ITS | Encounter Summary ---
Author Organization [facility] Address [address] [place] [address] Care Team Providers Care Cathead Operator Name Role Phone Tremaine Shankar MD Primary Care Provider + Rita Kahn DO Unavailable [phone] Reason for Visit * Reason Comments Anxiety Encounter Details Date Type Department Care Team ([facility] st Contact Info) Description 04/22/2018 8:00 EDT Office Visit [facility] Adult Primary Care - [place] [address] [place] [address] Unknown, Provider, Tremaine Shankar MD [address] [phone] Rita Kahn, DO [address] [place] [phone] Anxiety (Primary Dx) Discharge Disposition: Auto Discharge Social [...] Sign Reading Time Taken Comments Blood Pressure 100/72 04/22/2018 0818 EDT Pulse 72 04/22/2018 0818 EDT Temperature 35.9 ??C (96.6 ??F) 04/22/2018 0818 EDT Respiratory Rate 20 04/22/2018 0818 EDT Oxygen Saturation - - Inhaled Oxygen Concentration - - Weight 168.3 kg (371 lb) 04/22/2018 0818 EDT Height - - Body Mass Index 51.74 02/13/2018 1319 EDT documented in this encounter [...] Discharge Diagnoses Diagnosis F41.9 Anxiety disorder, unspecified-F41.9[ICD-10-CM] documented in this encounter Patient Instructions * Patient Instructions* Rita Kahn - 04/22/2018 8:00 EDT Today we discussed anxiety. We decided that we will not adjust your medications because you report that you are currently doing well. We will refill your ativan Rx. Also, we would like to see you back in 4 months for a physical exam. Of course come back sooner than 4 months if you need to been seen. Thank you. documented in this encounter Ordered Prescriptions Prescription Sig Dispensed Refills Start Date End Da te LORazepam (ATIVAN) 1 mg tabletIndications:Anxiety Take 0.5 Tabs by mouth as needed for Anxiety (limit use to acute anxiety attcks). Daily Max: 1 mg 20 Tab 04/22/2018 06/24/2018 documented in this encounter Discharge Disposition Disposition Code Departure Means Destination Auto Discharge documented in this encounter Progress Notes * Rita Kahn - 04/22/2018 0800 EDT Subjective: Patient ID: Venkata Zhao is an 33 y.o. male. Chief Complaint Patient presents with ??? Anxiety HPI Mr. Zhao states that he has been doing well. He reports that he recently had family stress in which his sister had to be placed in a prison. However he feels that he was able to deal with the stress and anxiety well with the situation. He also reports that he had friends from out of town to visit him. He is working on his anxiety through coping mechanisms including maintaining good relationships with fianc?? as well as friends. He also found a job that better suits his anxiety symptoms revolving around work. 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 When asked, he does state that he has had thoughts of self-harm in the past. Last thoughts of self-harm were several weeks ago, he states these typically happen when he is feeling stressed and feels that he is becoming bogged down and overwhelmed he states that he has good appetite, interest in doing things, good sleeping habits. He states that he believes he is doing well on the Abilify 5 mg daily. He would like his Ativan prescription refilled. He takes 0.5 mg of Ativan when needed his last refill was June 04, 2017. He otherwise states that he is feeling overall healthy. He denies fevers, chills, sweats, chest pain, SOB, Abd pain. Patient Active Problem List Diagnosis ??? Allergic rhinitis ??? Scalp cyst ??? NIA (obstructive sleep apnea) ??? Morbid obesity (HCC-CMS) ??? Psychotic episode ??? Eczema ??? Primary insomnia ??? Anxiety ??? Acute left ankle pain Outpatient Prescriptions Marked as Taking for the 04/22/18 encounter (Office Visit) with Rita Kahn Medication Sig Dispense Refill ??? ARIPiprazole (ABILIFY) [...] Max: 1 mg 20 Tab 0 ??? [DISCONTINUED] LORazepam (ATIVAN) 1 mg tablet Take 0.5 Tabs by mouth as needed for Anxiety (limit use to acute anxiety attcks). Daily Max: 1 mg 20 Tab 0 ??? melatonin 3 mg tablet TAKE ONE TABLET BY MOUTH EVERY NIGHT AT BEDTIME NEEDED FOR INSOMNIA 30Tab 3 ??? therapeutic hand-body (EUCERIN ORIGINAL) lotion Apply topically as needed. ??? traZODone (DESYREL) 100 mg tablet TAKE 1 AND 1/2 TABLETS BY MOUTH AT BEDTIME 45 Tab 2 ??? traZODone (DESYREL) 100 mg tablet take 1 and 1/2 tablet by mouth at bedtime 45 Tab 0 ROS - See HPI Objective: BP 100/72 Pulse 72 Temp 35.9 ??C (96.6 ??F) (Tympanic) Resp 20 Wt (!) 168.3 kg (371 lb) BMI 51.74 kg/m2 Physical Exam Physical Exam Constitutional: He appears well-developed and well-nourished. HENT: Oropharynx is clear. Conjunctivae are normal. No scleral icterus. Cardiovascular: Normal rate and regular rhythm. No murmur heard. Pulmonary/Chest: Effort normal and breath sounds normal. Psychiatric: Appropriate mood and affect. He is not agitated, not aggressive and not hyperactive. Thought content is not paranoid and not delusional. Cognition and memory are not impaired. He does not express impulsivity or inappropriate judgment. He does not exhibit a depressed mood. He expresses no homicidal and no suicidal ideation. Assessment / Plan: Venkata is a 33yo male seen today for anxiety. He states that he is doing well and has developed better coping mechanisms. 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 He also is working hard to maintain healthy relationships with friends, family and fiance. He was previously seeing therapist every 2 weeks but has not been in a month. He states that he will try to see the therapist on a more regular basis. He currently does not want to adjust his medications be cause he feels that he is doing well. He did request a refill on his Ativan (reviewed VPMS- he last refilled his Ativan May 2017 for 20 tablets). Patient has been using ativan appropriately. A refill was ordered today for Ativan 1mg 20tablets which should last about a year. Mr. Zhao has not had an annual physical in 2 years. We discussed this and he would like to schedule a health maintenance visit. Venkata was seen today for anxiety. Diagnoses and all orders for this visit: Anxiety - LORazepam (ATIVAN) 1 mg tablet; Take 0.5 Tabs by mouth as needed for Anxiety (limit use to acute anxiety attcks). Daily Max: 1 mg Rita Kahn 04/22/2018 9:19 * Najma Main DO - 04/22/2018 0800 EDT I saw and examined the patient with the resident on the day of the visit. I agree with the findingsand plan of care documented in the resident's note. Najma Main DO 18:09 04/23/2018 documented in this encounter Plan of Treatment [...] about your health please visit: https://www.[facility].org/medcenter/Pages/Wellness-Resources/Siaiuhcqf-Ttovwt-Fi [facility] e-Center.aspx documented as of this encounter Visit Diagnoses Diagnosis Anxiety- Primary Anxiety state, unspecified documented in this encounter Discontinued Medications Medication Sig Discontinue Reason Start Date End Da te LORazepam (ATIVAN) 1 mg tabletIndications:Anxiet y Take 0.5 Tabs by mouth as needed for Anxiety (limit use to acute anxiety attcks). Daily Max: 1 mg Reorder 06/04/2017 04/22/2018 documented as of this encounter Care Teams Cathead Operator Relationship Specialty Start Date End Date Tremaine Shankar MD 1 [facility] Level [address] [place] [phone] PCP - General 10/18/15 06/21/18 Rita Kahn DO [address] [place] [address] PCP - Alternate 02/13/18 03/16/21 documented as of this encounter
--- OUTSIDE RECORDS SUMMARY | 2024-06-16 15:25 | XMS_ITS | Encounter Summary ---
Author Organization [facility] Address [address] [place] [address] Care Team Providers Care Psychologist Developmental Name Role Phone Tremaine Shankar MD Primary Care Provider + Rita Kahn DO Unavailable [phone] Reason for Visit * Reason Comments Other Encounter Details Date Type Department Care Team (Late st Contact Info) Description 06/03/2018 Refill [facility] Adult Primary Care [facility] [address] [place], [place] [phone] Tremaine Shankar MD 1 [facility] Level [address] [place] [phone] Other Social History Tobacco Use Types Packs/Day [...] AT BEDTIME 45 Tab 1 06/03/2018 08/07/2018 documented in this encounter Miscellaneous Notes * Telephone Encounter - Rene Lopez RN - 06/03/2018 1656 EDT Medication(s) Requested: Trazadone Preferred Pharmacy: [facility] Is patient out of medication? Unknown Last Refill Date: 03/05/18 Last Visit Date with Ordering Provider: 04/22/18 Next Non-Acute Visit Date Scheduled with Care Team: Yes. RENE LOPEZ RN 06/03/2018 16:56 documented in this encounter Plan of Treatment [...] your health please visit: https://www.[facility].org/medcenter/Pages/Wellness-Resources/Onudhbtso-Yhibvq-Ho sourc e-Center.aspx documented as of this encounter Visit Diagnoses Diagnosis Anxiety Anxiety state, unspecified Psychophysiological insomnia Persistent disorder of initiating or maintaining sleep documented in this encounter Discontinued Medications Medication Sig Discontinue Reason Start Date End Da te traZODone (DESYREL) 100 mg tabletIndications:Anxiet y,Psychophysiological insomnia TAKE 1 AND 1/2 TABLETS BY MOUTH AT BEDTIME Reorder 03/05/2018 06/03/2018 documented as of this encounter Care Teams Psychologist Developmental Relationship Specialty Start Date End Date Tremaine Shankar MD 1 [facility] 1 [place] [phone] PCP - General 10/18/15 06/21/18 Rita Kahn DO [address] [place] [address] PCP - Alternate 02/13/18 03/16/21 documented as of this encounter
--- OUTSIDE RECORDS SUMMARY | 2024-06-16 15:25 | XMS_ITS | Encounter Summary ---
Author Organization [facility] Address [address] [place] [address] Care Team Providers Care Office Assistant Receptionist Name Role Phone Tremaine Shankar MD Primary Care Provider + Rita Kahn DO Unavailable [phone] Reason for Referral * Consult (3 - 10 Business Days) - Closed Specialty Diagnoses / Procedures Referred By Contac t Referred To Contact Psychiatry Diagnoses Anxiety Carlitos Dow MD [address] [place] [phone] [place] [address] [address] [place] [id number] Referral ID Status Reason Start Date Expiration Date V isits Requested Visits Authorized [id number] Closed Specialty Services Required 02/13/2018 1 1 Question Answer Reason for Request: anxiety/depression, psychotic break NOS in 2012, on abilify, trazadone and ativan, needs better depression/anxiety control. Reason for Visit * Reason Comments Anxiety Encounter Details Date Type Department Care Team (Late st Contact Info) Description 02/13/2018 13:15 EDT Office Visit [facility] Adult Primary Care - [address] [address] Unknown, Provider, Carlitos Dow MD [address] [place] [phone] Brittaney Gutiérrez MD PhD 111 [facility] 2 [place] [phone] Anxiety (Primary Dx) Discharge Disposition: Auto Discharge [...] Pressure - - Pulse - - Temperature 37 ??C (98.6 ??F) 02/13/2018 1319 EDT Respiratory Rate 1 02/13/2018 1319 EDT Oxygen Saturation - - Inhaled Oxygen Concentration - - Weight - - Height 180.3 cm (5' 11) 02/13/2018 1319 EDT Body Mass Index - - documented [...] Anxiety disorder, unspecified-F41.9[ICD-10-CM] documented in this encounter Discharge Disposition Disposition Code Departure Means Destination Auto Discharge documented in this encounter Progress Notes * Brittaney Gutiérrez MD PhD - 02/13/2018 1315 EDT Subjective: Patient ID: Venkata Zhao is an 32 y.o. male. Chief Complaint Patient presents with ??? Anxiety HPI Venkata comes in today with increasing he is again not showing up for his scheduled work. 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 He says he and his girlfriend are also looking rings which is causing a lot of stress. He denies any thoughts of self-harm, harming others, suicide, but does say that his thoughts are rather dark. He does not elaborate. On days when he skips work he spends the day in bed. He is unable tosay whether he is no longer interested in some of things he used to enjoy. He does say that he is sleeping well at night and able to fall asleep again about 8 hours every night. He has been gaining we ight. He says that he would like to stop skipping around jobs, but is unsure of how to manage his current situation because he does not feel that he can go back to work in his current state. Since her last visit I had encouraged him to get in with his therapist, but he has not scheduled this in thelast 5 weeks. Patient Active Problem List Diagnosis ??? Allergic rhinitis ??? Scalp cyst ??? NIA (obstructive sleep apnea) ??? Morbid obesity (HCC-CMS) ??? Psychotic episode ??? Eczema ??? Primary insomnia ??? Anxiety No outpatient prescriptions have been marked as taking for the 02/13/18 encounter (Office Visit) with Brittaney Gutiérrez MD PHD. Review of Systems Constitutional: Negative for chills, fever, malaise/fatigue and weight loss. Respiratory: Negative for shortness of breath. Cardiovascular: Negative for chest pain and palpitations. Gastrointestinal: Negative for diarrhea, nausea and vomiting. Skin: Negative for rash. Neurological: Negative for dizziness, sensory change and headaches. Psychiatric/Behavioral: Positive for depression. Negative for hallucinations, substance abuse and suicidal ideas. The patient is nervous/anxious. The patient does not have insomnia. - See HPI Objective: Temp 37 ??C (98.6 ??F) (Tympanic) Resp (!) 1 Ht 180.3 cm (71) Physical Exam Constitutional: He is oriented to person, place, and time. He appears well- developed and well-nourished. HENT: Mouth/Throat: Mucous membranes are moist. Neck: No thyromegaly present. Cardiovascular: Normal rate and regular rhythm. No murmur heard. Pulmonary/Chest: Effort normal and breath sounds normal. No respiratory distress. Musculoskeletal: He exhibits no edema or tenderness. Neurological: He is alert and oriented to person, place, and time. Skin: Skin is warm and dry. No rash noted. Psychiatric: His behavior is normal. Judgment normal. His mood appears anxious. His speech is delayed. Thought content is not paranoid and not delusional. He exhibits a depressed mood. He expresses no homicidal and no suicidal ideation. He expresses no suicidal plans and no homicidal plans. Assessment / Plan: Venkata has increasing symptoms of anxiety and depression which is causing him to miss work. I do think he would benefit from some antidepressant to manage his anxiety/depression, as well as getting more frequent visits to his therapist. Given his complicated psychiatric history and current use of antipsychotics as well as trazodone at night I would like to get some more input from psychiatry before prescribing him anything. I put in referral for the mood and anxiety clinic as well for their input. Also reached out to psychiatry consultations to see whether it is reasonable to start an SSRI for these symptoms while on Abilify and trazodone. I will call Venkata when I hear back from them. Venkata was seen today for anxiety. Diagnoses and all orders for this visit: Anxiety - Amb Consult/Follow Up [facility] Brittaney Gutiérrez MD PHD 02/13/2018 17:43 Addendum: Spoke with Dr. Mcdaniels about basics of [...] the patient including possible referral to the [facility] short-term intensive partial inpatient therapy. If the patient does not want to orcannot participate in this program, ideally he would be able to go back to [facility] as she would likely qualify for any of their services. I called the patient to discuss these recommendations, however was unable to reach him. Left a voicemail for him to call back. * Carlitos Dow MD - 02/13/2018 1315 EDT Attending Addendum: I discussed the patient with the resident on the day of the visit. I agree with the findings and plan of care documented in the resident's note. Carlitos Dow MD 8:09 02/14/2018 documented in this encounter Plan of Treatment Scheduled Referrals Name Type Priority Associated Diagnoses Orde r Schedule AMB CONS/FOLLOW UP [facility] CL[facility] Outpatient Referral Routine Anxiety Ordered: 02/13/2018 documented as of this encounter Goals Goal [...] more about your health please visit: https://www.[facility].org/medcenter/Pages/Wellness-Resources/Qevhbhfyv-Spzryh-Ew sour e-Center.aspx documented as of this encounter Visit Diagnoses Diagnosis Anxiety- Primary Anxiety state, unspecified documented in this encounter Care Teams Office Assistant Receptionist Relationship Specialty Start Date End Date Tremaine Shankar MD 1 [facility] 1 [place] [address] PCP - General 10/18/15 06/21/18 Rita Kahn DO [address] [place] [phone] PCP - Alternate 02/13/18 03/16/21 documented as of this encounter
--- OUTSIDE RECORDS SUMMARY | 2024-06-16 15:25 | XMS_ITS | Encounter Summary ---
Author Organization [facility] Address [address] [place] [address] Care Team Providers Care Digital Data Analyst Name Role Phone Rita Kahn Eder DO Unavailable [phone] Tremaine Shankar MD Primary Care Provider + Reason for Visit * Reason Onset Date Comments Medications Refill 09/15/2018 Encounter Details Date Type Department Care Team (Late st Contact Info) Description 09/15/2018 Refill [facility] Primary Care [facility] [address] [phone] Tremaine Shankar MD [address] [phone] Medications Refill Social History Tobacco [...] tablets by mouth at bedtime 45 Tab 09/15/2018 10/12/2018 documented in this encounter Miscellaneous Notes * Telephone Encounter - Linda Sosa RN - 09/15/2018 1447 EST Left message on pt's VM advising accordingly * Telephone Encounter - Lowell Chase MD - 09/15/2018 1443 EST Ok to refill. * Telephone Encounter - Huma Nassar - 09/15/2018 1212 EST Medication(s) Requested: Trazodone Preferred Pharmacy: [address] Is patient out of medication? Yes Last Refill Date: 08.12.2018 Last Visit Date with Ordering Provider: 08.07.2018 Next Non-Acute Visit Date Scheduled with Care Team: Yes. 10.01.2018 Please call patient if ordered - this property underwriter informed pt that I wasn't sure it would be able to be ordered today. Huma Nassar 09/15/2018 12:13 documented in this encounter Plan of Treatment [...] learn more about your health please visit: https://www.[facility].org/medcenter/Pages/Wellness-Resources/Egdnmjmnd-Lkpbhb-Dt [facility] e-Center.aspx documented as of this encounter Visit Diagnoses Diagnosis Anxiety Anxiety state, unspecified Psychophysiological insomnia Persistent disorder of initiating or maintaining sleep documented in this encounter Discontinued Medications Medication Sig Discontinue Reason Start Date End Da te traZODone (DESYREL) 100 mg tabletIndications:Anxiet y,Psychophysiological insomnia take 1 and 1/2 tablets by mouth at bedtime Reorder 08/12/2018 09/15/2018 documented as of this encounter Care Teams Digital Data Analyst Relationship Specialty Start Date End Date Rita Kahn DO [address] [place] [phone] PCP - Alternate 02/13/18 03/16/21 Tremaine Shankar MD 1 [facility] 1 [place] [address] PCP - General 06/25/18 03/29/22 documented as of this encounter
--- OUTSIDE RECORDS SUMMARY | 2024-06-16 15:25 | XMS_ITS | Encounter Summary ---
Author Organization [facility] Address [address] [place] [address] Care Team Providers Care Vegetable I Farmworker Name Role Phone Tremaine Shankar MD Primary Care Provider + Brittaney Gutiérrez MD PhD Unavailable [phone] Reason for Visit * Reason Onset Date Comments Medications Refill 11/27/2017 Encounter Details Date Type Department Care Team (Late st Contact Info) Description 11/27/2017 Refill [facility] Adult Primary Care [facility] 1 [place], [place] [phone] Tremaine Shankar MD 1 [facility] Level [address] [place] [address] Medications Refill Social History Tobacco [...] 1 Tab by mouth daily. 30 Tab 1 11/27/2017 01/05/2018 documented in this encounter Miscellaneous Notes * Telephone Encounter - Annie Porras - 11/27/2017 0758 EST Medication(s) Requested: Ariprazole Preferred Pharmacy: [place] Is patient out of medication? Unknown Last Refill Date: 09/27/2017 Last Visit Date with Ordering Provider: 06/13/2017 Next Non-Acute Visit Date Scheduled with Care Team: No. Annie Porras 11/27/2017 7:59 documented in this encounter Plan of Treatment [...] your health please visit: https://www.[facility].org/medcenter/Pages/Wellness-Resources/Dacqemuji-Lxcijj-Zy sourc e-Center.aspx documented as of this encounter Visit Diagnoses Diagnosis Anxiety- Primary Anxiety state, unspecified documented in this encounter Discontinued Medications Medication Sig Discontinue Reason Start Date End Da te ARIPiprazole (ABILIFY) 5 mg tabletIndications:Anxiet y TAKE ONE TABLET BY MOUTH ONE TIME DAILY Reorder 09/27/2017 11/27/2017 documented as of this encounter Care Teams Vegetable I Farmworker Relationship Specialty Start Date End Date Tremaine Shankar MD [address] [place] [address] 1 [place] [phone] PCP - General 10/18/15 06/21/18 Brittaney Gutiérrez MD PhD [address] [place] [address] 2 [place] [address] PCP - Alternate 10/21/15 02/12/18 documented as of this encounter
--- OUTSIDE RECORDS SUMMARY | 2024-06-16 15:25 | XMS_ITS | Encounter Summary ---
Author Organization [facility] Address [address] [place] [address] Care Team Providers Care Fermenter Wine Name Role Phone Rita Kahn DO Unavailable [phone] Tremaine Shankar MD Primary Care Provider + Reason for Visit * Reason Comments Anxiety Encounter Details Date Type Department Care Team ([facility] st Contact Info) Description 08/07/2018 10:30 EST Office Visit [facility] Adult Primary Care - [place] [address] [place], [place] [address] Unknown, Provider, Tremaine Shankar MD 1 [facility] 1 [place] [phone] Rita Kahn, DO [address] [place] [phone] Anxiety (Primary Dx) Discharge Disposition: Auto Discharge [...] Sign Reading Time Taken Comments Blood Pressure 118/80 08/07/2018 1020 EST Pulse 82 08/07/2018 1020 EST Temperature 35.9 ??C (96.6 ??F) 08/07/2018 1020 EST Respiratory Rate 20 08/07/2018 1020 EST Oxygen Saturation - - Inhaled Oxygen [...] Patient Instructions * Patient Instructions* Rita Kahn DO - 08/07/2018 10:30 EST Stop taking haldol Start taking Abilify 5mg nightly Follow up with psychiatry appointment in September Refilled ativan today documented in this encounter Ordered Prescriptions Prescription Sig Dispensed Refills Start Date End Da te ARIPiprazole (ABILIFY) 5 mg tabletIndications:Anxiety Take 1 Tab by mouth daily. 30 Tab 3 08/07/2018 12/30/2018 LORazepam (ATIVAN) 1 mg tablet Take 1 Tab by mouth every 6 hours. Daily Max: 4 mg 15 Tab 08/07/2018 09/29/2019 documented in this encounter Discharge Disposition Disposition Code Departure Means Destination Auto Discharge documented in this encounter Progress Notes * Rita Kahn DO - 08/07/2018 1030 EST * Rita Kahn DO - 08/07/2018 1030 EST Subjective: Patient ID: Venkata Zhao is an 33 y.o. male. Chief Complaint Patient presents with ??? Anxiety HPI Venkata Zhao is a 33 y.o. male with a history of NIA, psychotic episode, and anxiety who presents today for follow-up for ED visit 06/22-06/24. He is here for medication refill for lorazepam and aripiprazole. Patient presented to the ED on 06/22 due to insomnia secondary to racing, disorganized thoughts. He had not slept for at least 3 days and has had a poor appetite due to his erratic thoughts. He had thoughts that people are out to get him and much of his paranoia is related to doctors. He was monitored in the emergency department until June 24. Psychiatry had recommended admission however patient refused. On discharge they discontinued his Abilify, prescribed Haldol 5 mg twice daily. Continue trazodone nightly. Today he states that he is feeling well. He states that the Haldol has caused him to be excessivelygroggy throughout the day so he has been sleeping more. Today he has an interview at [employer]. He is hopeful that this job will help him stay more active throughout the day. He currently has psychiatric follow-up with on October 01. Today he denies fevers, chills, night sweats, appetite change, weight gain or weight loss, GI upset, chest pain, shortness of breath, palpitations, constipation diarrhea, He denies hallucinations visual and auditory. He denies thoughts of self-harm or suicidal ideation.He denies thoughts of harming others. Patient Active Problem List Diagnosis ??? Allergic rhinitis ??? Scalp cyst ??? NIA (obstructive sleep apnea) ??? Morbid obesity ([facility]) ??? Psychotic episode ([facility]) ??? Eczema ??? Primary insomnia ??? Anxiety ??? Acute left ankle pain Outpatient Medications Marked as Taking for the 08/07/18 encounter (Office Visit) with Rita Kahn, DO Medication Sig Dispense Refill ??? haloperidol (HALDOL) 5 mg tablet Take 1 Tab by mouth 2 times daily. 60 Tab 1 ??? LORazepam (ATIVAN) 1 mg tablet Take 1 Tab by mouth every 6 hours. Daily Max: 4 mg 15 Tab 0 ??? [DISCONTINUED] LORazepam (ATIVAN) 1 mg tablet Take 1 Tab by mouth every 6 hours. Daily Max: 4 mg 15 Tab 0 ??? melatonin 3 mg tablet TAKE ONE TABLET BY MOUTH EVERY NIGHT AT BEDTIME NEEDED FOR INSOMNIA 30Tab 3 ??? traZODone (DESYREL) 100 mg tablet take 1 and 1/2 tablet by mouth at bedtime 45 Tab 0 Review of Systems Constitutional: Negative for chills, diaphoresis, fever, malaise/fatigue and weight loss. HENT: Negative. Eyes: Negative. Respiratory: Negative. Cardiovascular: Negative. Gastrointestinal: Negative. Genitourinary: Negative. Skin: Negative for itching and rash. Neurological: Negative. Psychiatric/Behavioral: Negative for hallucinations and suicidal ideas. The patient does not have insomnia. - See HPI Objective: BP 118/80 Pulse 82 Temp 35.9 ??C (96.6 ??F) (Tympanic) Resp 20 Physical Exam Constitutional: He is oriented to person, place, and time. He appears well- developed and well-nourished. Morbidly obese HENT: Mouth/Throat: Mucous membranes are moist. Dentition is normal. Oropharynx is clear. Eyes: Conjunctivae and EOM are normal. Pupils are equal, round, and reactive to light. Neck: Normal range of motion. Neck supple. Cardiovascular: Normal rate and regular rhythm. Pulmonary/Chest: Effort normal and breath sounds normal. Abdominal: Soft. He exhibits no distension. There is no tenderness. Neurological: He is alert and oriented to person, place, and time. Skin: Skin is warm and dry. Psychiatric: He has a normal mood and affect. His behavior is normal. Assessment / Plan: Mr. Zhao was seen today in clinic for follow-up as well as medication refill for Ativan and Abilify. Brief psychotic episode: Patient was monitored in the emergency department from 06/22 to 06/24. Psychiatry was consulted and recommended inpatient observation however patient refused. He was dischargedon trazodone 150 mg nightly. Haldol 5 mg twice daily. Ativan 1 mg as needed. And discontinued Abilify. Patient is interested in restarting Abilify and stopping Haldol because that Tylenol causes him excessive grogginess. -Discontinued Haldol -Restarted Abilify 5 mg nightly -Continue Ativan 0.5 mg as needed. Today prescribed 15 tablets -Continue trazodone 150 mg nightly -Follow-up with psychiatry on October [address] Dye Anxiety: V PMS was reviewed. Patient refilled lorazepam 05/02 20 tablets and 06/24 for 15 tablets. -Today refilled lorazepam 1 mg 15 tablets. Morbid obesity: Patient has a BMI of greater than 50. He states that he is had stable weight. Discussed with him healthy meal choices and offered nutrition consultation here at the clinic. Patient refused at this time and he states that as soon as he starts his new job he believes that he would lose more weight because he will be more active. Vaccinations: Influenza vaccine today. Behavioral health screening done today. Venkata was seen today for anxiety. Diagnoses and all orders for this visit: Anxiety - ARIPiprazole (ABILIFY) 5 mg tablet; Take 1 Tab by mouth daily. Other orders - LORazepam (ATIVAN) 1 mg tablet; Take 1 Tab by mouth every 6 hours. Daily Max: 4 mg Rita Kahn DO 08/07/2018 12:11 * Tremaine Shankar III, MD - 08/07/2018 1030 EST Attestation statement: I saw and examined the patient with [...] health please visit: https://www.[facility].org/medcenter/Pages/Wellness-Resources/Stftlcjzq-Pxdprw-Cr [facility] e-Center.aspx documented as of this encounter Visit Diagnoses Diagnosis Anxiety- Primary Anxiety state, unspecified documented in this encounter Discontinued Medications Medication Sig Discontinue Reason Start Date End Da te traZODone (DESYREL) 100 mg tabletIndications:Anxiet y,Psychophysiological insomnia TAKE 1 AND 1/2 TABLETS BY MOUTH AT BEDTIME Duplicate Therapy 06/03/2018 08/07/2018 ARIPiprazole (ABILIFY) 5 mg tabletIndications:Anxiet y Take 1 Tab by mouth daily. 01/05/2018 08/07/2018 LORazepam (ATIVAN) 1 mg tablet Take 1 Tab by mouth every 6 hours. Daily Max: 4 mg 06/24/2018 08/07/2018 ARIPiprazole (ABILIFY) 5 mg tabletIndications:Anxiet y TAKE ONE TABLET BY MOUTH ONE TIME DAILY Reorder 2018 08/07/2018 documented as of this encounter Care Teams Fermenter Wine Relationship Specialty Start Date End Date Rita Kahn DO [address] [place] [address] PCP - Alternate 02/13/18 03/16/21 Tremaine Shankar MD 1 [facility] 1 [place] [address] PCP - General 06/25/18 03/29/22 documented as of this encounter
--- OUTSIDE RECORDS SUMMARY | 2024-06-16 15:25 | XMS_ITS | Encounter Summary ---
Author Organization [facility] Address [address] [place] [address] Care Team Providers Care Junior Database Administrator Name Role Phone Criss Rita Eder DO Unavailable [phone] Tremaine Shankar MD Primary Care Provider + Reason for Visit * Reason Onset Date Comments Coordination Of Care 10/01/2018 Encounter Details Date Type Department Care Team ([facility] st Contact Info) Description 10/01/2018 Telephone [facility] Psychiatry - [address] [id number] Guillermo Dye MD [address] [facility] [place] [id number] Coordination Of Care Social History Tobacco Use [...] encounter Miscellaneous Notes * Telephone Encounter - Guillermo Dye MD - 10/01/2018 1419 EST Mr Zhao was scheduled with me this afternoon for psychiatric consultation. Unfortunately, Mr Zhao did not present for the appointment. Chart was reviewed. In brief, Mr Zaho is a 33 year old man with medical history remarkable for Obstructive Sleep Apnea, alcohol and cannabis use, unspecified psychotic disorder, unspecified anxiety disorder and 2 previous psychiatric admissions. He presented to the ED on 06/22/18 with psychotic sy mptoms, though was discharged from the ED without admission. He was last seen on 08/07 by Primary Care and it appears that haldol 5 mg bid was discontinued and patient transitioned to abilify 5 mg QHS, along with continued use of lorazepam 0.5 mg prn. In brief, the note from Primary Care on 08/07 indicates that Mr Zhao was feeling well, haldol had caused grogginess which prompted switch to abilify, and Mr Zhao was pursuing employment with hopes of increasing daily activity. It is difficult in this case to make concrete recommendations without examining Mr Zhao in person as his presentation can be quite variable, diagnosis is somewhat uncertain, and he has not been seen since 08/07. However, we would recommend continuing metabolic monitoring (A1c, fasting lipids, BMI, waist circumference) with Abilify. More aggressive monitoring than usual may be needed as it appears that Mr Zhao's BMI is over 50. We would be happy to meet with Mr Zhao again should another appointment be desired. documented in this encounter Plan of Treatment [...] learn more about your health please visit: https://www.[facility].org/medcenter/Pages/Wellness-Resources/Gkaxbrfgk-Blsvmy-Dx [facility] e-Center.aspx documented as of this encounter Visit Diagnoses Not on filedocumented in this encounter Care Teams Junior Database Administrator Relationship Specialty Start Date End Date Rita Kahn DO [address] [place] [address] PCP - Alternate 02/13/18 03/16/21 Tremaine Shankar MD 1 [facility] Level [address] [place] [phone] PCP - General 06/25/18 03/29/22 documented as of this encounter
--- OUTSIDE RECORDS SUMMARY | 2024-06-16 15:25 | XMS_ITS | Encounter Summary ---
Author Organization [facility] Address [address] [place] [address] Care Team Providers Care Repair Department Supervisor Name Role Phone KahnRita soriano DO Unavailable [phone] Tremaine Shankar MD Primary Care Provider + Reason for Visit * Reason Comments Other Encounter Details Date Type Department Care Team (Late st Contact Info) Description 10/12/2018 Refill [facility] Primary Care [facility] 1 [place], [place] [phone] Lowlel Chase MD [address] [place] [address] Other Social History Tobacco Use Types Packs/Day [...] tablets by mouth at bedtime 45 Tab 10/12/2018 11/11/2018 documented in this encounter Miscellaneous Notes * Telephone Encounter - Magali De La Paz RN - 10/12/2018 1508 EST Medication(s) Requested: traZODone (DESYREL) 100 mg [facility]erred [facility]acy: [facility] Is patient out of medication? Unknown Last Refill Date: 09/15/18 Last Visit Date with Ordering Provider: 08/07/18 Next Non-Acute Visit Date Scheduled with Care Team: Tara. Magali De La Paz RN 10/12/2018 15:08 documented in this encounter Plan of Treatment [...] learn more about your health please visit: https://www.[facility].org/medcenter/Pages/Wellness-Resources/Zhjnaghvb-Tyosce-Vs sourc e-Center.aspx documented as of this encounter Visit Diagnoses Diagnosis Anxiety Anxiety state, unspecified Psychophysiological insomnia Persistent disorder of initiating or maintaining sleep documented in this encounter Discontinued Medications Medication Sig Discontinue Reason Start Date End Da te traZODone (DESYREL) 100 mg tabletIndications:Anxiet y,Psychophysiological insomnia take 1 and 1/2 tablet by mouth at bedtime Reorder 01/05/2018 10/12/2018 traZODone (DESYREL) 100 mg tabletIndications:Anxiet y,Psychophysiological insomnia take 1 and 1/2 tablets by mouth at bedtime Reorder 09/15/2018 10/12/2018 documented as of this encounter Care Teams Repair Department Supervisor Relationship Specialty Start Date End Date Rita Kahn DO [address] [place] [address] PCP - Alternate 02/13/18 03/16/21 Tremaine Shankar MD 1 [facility] 1 [place] [phone] PCP - General 06/25/18 03/29/22 documented as of this encounter
--- OUTSIDE RECORDS SUMMARY | 2024-06-16 15:25 | XMS_ITS | Encounter Summary ---
Author Organization [facility] Address [address] [place] [address] Care Team Providers Care Core Java Engineer Name Role Phone Rita Escobedo DO Unavailable [phone] Tremaine Shankar MD Primary Care Provider + Reason for Referral * Referral (Routine/Next Available) - Closed Specialty Diagnoses / Procedures Referred By Ada sandhu Referred To Contact Psychiatry Diagnoses Psychotic episode ([facility]) Rita Escobedo, DO [address] [place] [address] [place] [address] [address] [place] [address] Referral ID Status Reason Start Date Expiration Date V isits Requested Visits Authorized [id number] Closed Specialty Services Required 07/09/2018 1 1 Question Answer Reason for Request: delusions, paranoia, Psychtic episode, anxiety, Reason for Visit * Reason Onset Date Comments Referral Request 07/09/2018 to psych Encounter Details Date Type Department Care Team ([facility] Contact Info) Description 07/09/2018 Telephone [facility] Adult Primary Care - [address] [address] Tremaine Shankar MD 1 [facility] Level [address] [place] [phone] Referral Request (to psych) Social History Tobacco Use Types Packs/Day Years [...] * Telephone Encounter - Huma Saucedo - 07/09/2018 1534 EDT Patient called back and he was notified that the Psychiatric referral has been completed and sent via work que. Patient was also transferred to Psychiatry to schedule this appointment. * Telephone Encounter - Rita Bajwa MD - 07/09/2018 1252 EDT 07/09/2018 AVIS: - signed pended psych referral request Rita Bajwa MD Internal Medicine PGY-3 Pager #[phone] 07/09/2018 12:53 * Telephone Encounter - Debi Lopez RN - 07/09/2018 1224 EDT I called patient, he was expecting to be seen here and get a referral to Psychiatry. He would like to have the Psychiatry referral placed elly at this time he is only seeing a therapist. * Telephone Encounter - Yeison Parr - 07/09/2018 0875 EDT Patient is requesting a new psychiatrist. He was told that a request would be sent to Dr. Escobedo for a referral order, and that someone would call him to let him know whether he needs an appointment to get referral / and to let him know when referral is in place. documented in this encounter Plan of Treatment Scheduled Referrals Name Type Priority Associated Diagnoses Order Schedule AMB CONS/FOLLOW UP ADULT PSYCHIATRY CLINIC Outpatient Referral Routine Psychotic episode ([facility]) Ordered: 07/09/2018 documented as of this encounter Goals Goal [...] about your health please visit: https://www.[facility].org/medcenter/Pages/Wellness-Resources/Qajefqdlm-Lefksk-Hh [facility] e-Center.aspx documented as of this encounter Visit Diagnoses Diagnosis Psychotic episode ([facility])- Primary Unspecified psychosis documented in this encounter Care Teams Core Java Engineer Relationship Specialty Start Date End Date Rita Escobedo DO [address] [place] [address] PCP - Alternate 02/13/18 03/16/21 Tremaine Shankar MD 1 [facility] 1 [place] [address] PCP - General 06/25/18 03/29/22 documented as of this encounter
--- OUTSIDE RECORDS SUMMARY | 2024-06-16 15:25 | XMS_ITS | Encounter Summary ---
Author Organization [facility] Address [address] [place] [address] Care Team Providers Care Rolled Materials Worker Name Role Phone Rita Kahn DO Unavailable [phone] Rita Kahn DO Primary Care Provider [phone] Tremaine Shankar MD Primary Care Provider + Reason for Visit * Reason Onset Date Comments Hallucinations 06/22/2018 Manic Behavior 06/22/2018 Encounter Details Date Type Department Care Team (Late st Contact Info) Description 06/22/2018 Telephone [facility] Primary [facility] [address] [address] Tremaine Shankar MD [address] [address] Hallucinations; Manic Behavior Social History Tobacco Use Types Packs/Day Years [...] encounter Miscellaneous Notes * Telephone Encounter - Aide Vela RN - 06/22/2018 1128 EDT Incoming call: Girlfriend (Chastity) Hx of psychosis with hospitalization Pt hasn't slept in 3 nites Not making any sense GF crying on phone - concerned for patient's safety GF with other friends at home with patient Delusions/paranoia: AC is talking to him, Armond Saldivar is listening to him Has contacted [facility] but not available to come for visit today Advised if any concerns for safety to contact police GF states police is 'trigger' for him and doesn't think this is a good idea Patient on phone: Doesn't want to go to hospital; thinks he's doing ok Conversation very forced, patient not verbalizing concerns GF on phone: Advised patient be taken to [facility] ED for evaluation today If concerns for safety advised to contact police/911 No questions at this time; no barriers identified * Telephone Encounter - Aide Vela RN - 06/22/2018 1057 EDT Outgoing call: Not available; no ability to leave VM * Telephone Encounter - Ibis Pinto - 06/22/2018 1037 EDT Reason for Call: Hallucinations and Manic Behavior Summary/Symptoms: Onset and Duration? 3 days Appointment Offered? No Ibis Pinto 06/22/2018 10:38 documented in this encounter Plan of Treatment [...] more about your health please visit: https://www.[facility].org/medcenter/Pages/Wellness-Resources/Zfsznqwwh-Zahbba-Ww sourc e-Center.aspx documented as of this encounter Visit Diagnoses Not on filedocumented in this encounter Care Teams Rolled Materials Worker Relationship Specialty Start Date End Date Rita Kahn DO [address] [place] [address] PCP - Alternate 02/13/18 03/16/21 Rita Kahn DO [address] [place] [address] PCP - General 06/22/18 06/24/18 Tremaine Shankar MD 1 [facility] 1 [place] [address] PCP - General 06/25/18 03/29/22 documented as of this encounter
--- OUTSIDE RECORDS SUMMARY | 2024-06-16 15:25 | XMS_ITS | Encounter Summary ---
Author Organization [facility] Address [address] [place] [address] Care Team Providers Care Director Global Market Research Name Role Phone Criss Rita Eder DO Unavailable [phone] Tremaine Shankar MD Primary Care Provider + Reason for Visit * Reason Onset Date Comments Medications Refill 12/30/2018 Encounter Details Date Type Department Care Team (Late st Contact Info) Description 12/30/2018 Refill [facility] Adult Primary Care [facility] 1 [place], [place] [phone] Tremaine Shankar MD 1 [facility] Level [address] [place] [address] Medications Refill Social History Tobacco [...] 1 tablet by mouth daily. 30 tablet 12/31/2018 01/30/2019 documented in this encounter Miscellaneous Notes * Telephone Encounter - Natacha Henderson - 01/01/2019 0832 EDT Attempted to reach patient, voicemail box is full unable to leave message. * Telephone Encounter - Abdulaziz Hilton MD - 12/31/2018 1642 EDT Renewed patient's Abilify prescription for 30 days. He has had multiple no shows the past few months since his last visit in July when Abilify was started. This included 1 no-show to his psychiatric appointment with Dr. Edouard. At that time he recommended metabolic monitoring given the restart of Abilify. I am comfortable refilling a 30-day supply with the stipulation that he present for resident clinic (ideally with Dr. Kahn) for review of his prescription and lab work. Abdulaziz Ji.CTerry) MD Yobani [phone] PGY-1, Internal Medicine * Telephone Encounter - Huma Saucedo - 12/30/2018 1137 EDT Medication(s) Requested: Abilify Preferred Pharmacy: [place] Is patient out of medication? Unknown Last Refill Date: 08.07.18 Last Visit Date with Ordering Provider: 08.07.18 Next Non-Acute Visit Date Scheduled with Care Team: No. Huma Saucedo 12/30/2018 11:37 documented in this encounter Plan of Treatment [...] learn more about your health please visit: https://www.[facility].org/medcenter/Pages/Wellness-Resources/Nrulpgfoa-Apndbl-Po sourc e-Center.aspx documented as of this encounter Visit Diagnoses Diagnosis Anxiety- Primary Anxiety state, unspecified documented in this encounter Discontinued Medications Medication Sig Discontinue Reason Start Date End Da te ARIPiprazole (ABILIFY) 5 mg tabletIndications:Anxiety Take 1 Tab by mouth daily. Reorder 08/07/2018 12/30/2018 documented as of this encounter Care Teams Director Global Market Research Relationship Specialty Start Date End Date Rita Kahn DO [address] [place] [address] PCP - Alternate 02/13/18 03/16/21 Tremaine Shankar MD 1 [facility] Level [address] [place] [address] PCP - General 06/25/18 03/29/22 documented as of this encounter
--- OUTSIDE RECORDS SUMMARY | 2024-06-16 15:26 | XMS_ITS | Encounter Summary ---
Author Organization [facility] Address [address] [place] [address] Care Team Providers Care Forestry Professor Name Role Phone Tremaine Shankar MD Primary Care Provider + Brittaney Gutiérrez MD PhD Unavailable [phone] Reason for Visit * Reason Onset Date Comments Medications Refill 12/14/2016 Encounter Details Date Type Department Care Team (Late st Contact Info) Description 12/14/2016 Refill [facility] Adult Primary Care [address] [id number] Brittaney Gutiérrez MD PhD 111 [facility] 2 [place] [address] Medications Refill Social History Tobacco [...] visiting a doctor's office or shopping? No 10/11/2016 Cognitive Status Response Date of Assessm ent Because of a physical, menta l, or emotional condition, does this person have serious difficulty concentrating, remembering, or making decisions? No 10/11/2016 documented as of this encounter Miscellaneous Notes * Telephone Encounter - Huma Saucedo - 12/18/2016 1104 EDT Called patient LMOM to schedule an appointment for a medication refill. * Telephone Encounter - Chirag Simental MD - 12/15/2016 1231 EDT No refill at this time No showed for his last appointment Dr. Gutiérrez is in office next week, so if he wants a refill he can book a visit * Telephone Encounter - Adriane Champagne RN - 12/15/2016 1120 EDT Medication(s) Requested: lorazepam Preferred Pharmacy: [place] Is patient out of medication? Unknown Last Refill Date: 10/11/2016 Last Visit Date with Ordering Provider: 10/11/2016 Next Visit Date as it relates to the requested medication: No. Last Related Labs Date: n/a Adriane Champagne RN 12/15/2016 11:21 documented in this encounter Plan of Treatment [...] about your health please visit: https://www.[facility].org/medcenter/Pages/Wellness-Resources/Ckekdrmrf-Knlcfu-Ic sourc e-Center.aspx documented as of this encounter Visit Diagnoses Diagnosis Anxiety- Primary Anxiety state, unspecified documented in this encounter Care Teams Forestry Professor Relationship Specialty Start Date End Date Tremaine Shankar MD 1 [facility] Level 1 [place] [phone] PCP - General 10/18/15 06/21/18 Brittaney Gutiérrez MD PhD 111 [facility] 2 [place] [phone] PCP - Alternate 10/21/15 02/12/18 documented as of this encounter
--- OUTSIDE RECORDS SUMMARY | 2024-06-16 15:26 | XMS_ITS | Encounter Summary ---
Author Organization [facility] Address [address] [place] [address] Care Team Providers Care Acute Care Occupational Therapist Name Role Phone Tremaine Shankar MD Primary Care Provider + Brittaney Gutiérrez MD PhD Unavailable [phone] Reason for Visit * Reason Onset Date Comments Medications Refill 07/18/2016 Encounter Details Date Type Department Care Team (Late st Contact Info) Description 07/18/2016 Refill [facility] Adult Primary Care [facility] 1 [place], [place] [address] Tremaine Shankar MD 1 [facility] Level 1 [place] [address] Medications Refill Social History Tobacco [...] visiting a doctor's office or shopping? No 05/30/2016 Cognitive Status Response Date of Assessm ent Because of a physical, menta l, or emotional condition, does this person have serious difficulty concentrating, remembering, or making decisions? No 05/30/2016 documented as of this encounter Ordered Prescriptions Prescription Sig Dispensed Refills Start Date End Da te LORazepam (ATIVAN) 1 mg tablet Take 1 Tab by mouth at bedtime as needed for up to 14 days for Anxiety. Daily Max: 1 mg 14 Tab 07/20/2016 07/31/2016 traZODone (DESYREL) 100 mg tabletIndications:Anxiety ,Psychophysiological insomnia Take 1 Tab by mouth at bedtime. 14 Tab 2 07/18/2016 07/31/2016 ARIPiprazole (ABILIFY) 5 mg tablet Take 1 Tab by mouth daily. 21 Tab 07/18/2016 07/31/2016 documented in this encounter Miscellaneous Notes * Telephone Encounter - Annie Porras - 07/20/2016 1458 EDT Lorazepam has been phoned into pharmacy. * Telephone Encounter - Huma Saucedo - 07/20/2016 0738 EDT Patient called back and is scheduled for 07.31.[address] Gutiérrez. * Telephone Encounter - Chirag Simental MD - 07/19/2016 0905 EDT Any chance he can be seen in July by Rey? I am trying to refill lorazepam to cover him until that ov * Telephone Encounter - Anca Ta - 07/18/2016 1216 EDT Medication(s) Requested: Abilify, Lorazepam, Trazodone Pharmacy: [facility] Last Refill Date: 05/30/16, 06/26/16 Last Visit Date: 06/26/16 Next Visit Date: 09/04/2016 Is patient out of medication? jonh Ta 07/18/2016 12:16 documented in this encounter Plan of Treatment [...] learn more about your health please visit: https://www.[facility].org/medcenter/Pages/Wellness-Resources/Dhvgtykcs-Zxljdo-Jf [facility] e-Center.aspx documented as of this encounter Visit Diagnoses Diagnosis Anxiety Anxiety state, unspecified Psychophysiological insomnia Persistent disorder of initiating or maintaining sleep documented in this encounter Discontinued Medications Medication Sig Discontinue Reason Start Date End Da te ARIPiprazole (ABILIFY) 5 mg tablet Take 1 Tab by mouth daily. Reorder 06/26/2016 07/18/2016 traZODone (DESYREL) 100 mg tabletIndications:Anxiet y,Psychophysiological insomnia Take 1 Tab by mouth at bedtime. Reorder 05/30/2016 07/18/2016 LORazepam (ATIVAN) 1 mg tablet Take 1 mg by mouth at bedtime as needed for Anxiety. Reorder 07/18/2016 documented as of this encounter Care Teams Acute Care Occupational Therapist Relationship Specialty Start Date End Date Tremaine Shankar MD 1 [facility] 1 [place] [phone] PCP - General 10/18/15 06/21/18 Brittaney Gutiérrez MD PhD [address] [place] [address] 2 [place] [phone] PCP - Alternate 10/21/15 02/12/18 documented as of this encounter
--- OUTSIDE RECORDS SUMMARY | 2024-06-16 15:26 | XMS_ITS | Encounter Summary ---
Author Organization [facility] Address [address] [place] [address] Care Team Providers Care Beader Name Role Phone Tremaine Shankar MD Primary Care Provider + Brittaney Gutiérrez MD PhD Unavailable [phone] Encounter Details Date Type Department Care Team (Late st Contact Info) Description 05/20/2016 Orders Only [facility] Adult Primary Care - [place] [address] [place], [place] [address] Nicolle Dispatcher [employer], TRAY De Los Santos [address] [place], [place] [phone] Social History Tobacco Use Types Packs/Day Years [...] visiting a doctor's office or shopping? No 01/19/2016 Cognitive Status Response Date of Assessm ent Because of a physical, menta l, or emotional condition, does this person have serious difficulty concentrating, remembering, or making decisions? No 01/19/2016 documented as of this encounter Plan of [...] more about your health please visit: https://www.[facility].org/medcenter/Pages/Wellness-Resources/Rghrxczya-Ppmora-Vi [facility] e-Center.aspx documented as of this encounter Visit Diagnoses Not on filedocumented in this encounter Care Teams Beader Relationship Specialty Start Date End Date Tremaine Shankar MD [address] [place] [address] 1 [place] [phone] PCP - General 10/18/15 06/21/18 Brittaney Gutiérrez MD PhD [address] [place] [address] 2 [place] [phone] PCP - Alternate 10/21/15 02/12/18 documented as of this encounter
--- OUTSIDE RECORDS SUMMARY | 2024-06-16 15:26 | XMS_ITS | Encounter Summary ---
Author Organization [facility] Address [address] [place] [address] Care Team Providers Care Senior Attorney Name Role Phone Tremaine Shankar MD Primary Care Provider + Brittaney Gutiérrez MD PhD Unavailable [phone] Reason for Visit * Reason Comments Rash Follow up Insomnia Using melatonin but not the benadryl Encounter Details Date Type Department Care Team (Late st Contact Info) Description 05/10/2016 15:30 EDT Office Visit [facility] Adult Primary Care - [address] [id number] Unknown, Provider, Chastity Marinelli [address] [place] [id number] Martha Martin MD [address] [place] [phone] Rash (Primary Dx); Insomnia, unspecified type Discharge Disposition: Auto Discharge Social History [...] Sign Reading Time Taken Comments Blood Pressure 132/78 05/10/2016 1546 EDT Pulse 104 05/10/2016 1546 EDT Temperature 36.9 ??C (98.5 ??F) 05/10/2016 1546 EDT Respiratory Rate 18 05/10/2016 1546 EDT Oxygen Saturation - - Inhaled Oxygen [...] No 01/19/2016 documented as of this encounter Discharge Diagnoses Diagnosis R21 Rash and other nonspecific skin eruption-R21[ICD-10-CM] G47.00 Insomnia, unspecified-G47.00[ICD-10-CM] documented in this encounter Discharge Disposition Disposition Code Departure Means Destination Auto Discharge documented in this encounter Progress Notes * Chastity Marinelli MD - 05/15/2016 1310 EDT I discussed the the patient with the resident at the time of the patient's visit. I agree with the findings and plan of care documented in the resident's note. 13:10 05/15/2016 Chastity Marinelli MD * Martha Martin MD - 05/10/2016 1602 EDT Subjective: Patient ID: Venkata Zhao is an 31 y.o. male. Chief Complaint Patient presents with ??? Rash Follow up ??? Insomnia Using melatonin but not the benadryl HPI Mr. Zhao is a 31 yo male with PMHx significant for insomnia and rash, who presents for routine follow up of these issues. Last seen by Dr. Gutiérrez in January for routine follow up. Regarding his rash,he feels that it has been well controlled. He describes small pustules at hair follicles diffusely,with larger pustules associated with his facial hair, which are not painful or pruritic. He has hadblistering lesions between the third and fourth digits of his hands bilaterally for which he had been trialed on different topical steroids without significant benefit. At his last visit, he had beenreferred to Dermatology, but cancelled his appointment because he felt that the rash was not particularly noticeable. He frequently washes his hands or uses hand veneer sander, after which he applies eucerin cream. Rash typically is worse in winter. With regard to insomnia, Venkata has been taking melatonin 10mg qhs prn on days when he has to work with significant benefit. He has been compliant with nocturnal CPAP, and typically has been getting 6-8 hours of restful sleep. He denies daytime fatigue/sleepiness. He has not required benadryl. Allergies, PMHx, PSHx, FHx, Social hx reviewed. Patient Active Problem List Diagnosis ??? Allergic rhinitis ??? Scalp cyst ??? NIA (obstructive sleep apnea) ??? Morbid obesity ??? Psychotic episode ??? Eczema Outpatient Prescriptions Marked as Taking for the 05/10/16 encounter (Office Visit) with Melquiades Martin MD Medication Sig Dispense Refill ??? melatonin 3 mg tablet Take 1 Tab by mouth at bedtime as needed (insomnia). (Patient taking differently: Take 10 mg by mouth at bedtime as needed (insomnia). ) 30 Tab 3 ROS - See HPI Objective: Visit Vitals ??? BP 132/78 (BP Cuff Location: Right arm, Patient Position: Sitting, BP Cuff Sizes: Adult, large) ??? Pulse 104 ??? Temp 36.9 ??C (98.5 ??F) (Tympanic) ??? Resp 18 Physical Exam General: morbidly obese, young male, NAD Skin: small pustular rash on bilateral upper and lower extremities in follicular pattern without surround erythema, crust or scale; hyperpigmentation of the sides of 3rd/4th digits without acute blistering Assessment / Plan: Venkata was seen today for rash and insomnia. Diagnoses and all orders for this visit: Rash: Patient with history of blistering rash for which he has tried multiple different topical steroids and agents without notable improvement. He was referred to Dermatology recently, but canceled appointment because of improvement in the rash. Feels that it is under good control currently with Eu cerin cream. - continue to monitor - advised patient to contact clinic if symptoms recur, at which point we can refer to Dermatology Insomnia: Improved, patient compliant with CPAP. - continue CPAP - continue melatonin 10mg qhs Return to clinic for follow up with Dr. Gutiérrez in 3 months, as requested in her January 2016 clinic note. Patient discussed with Dr. Marinelli. Martha Martin MD 05/10/2016 16:02 documented in this encounter Plan of Treatment [...] learn more about your health please visit: https://[facility].org/medcenter/Pages/Wellness-Resources/Hpfikmhrp-Adpdjj-Em [facility] e-Center.aspx documented as of this encounter Visit Diagnoses Diagnosis Rash- Primary Rash and other nonspecific skin eruption Insomnia, unspecified type documented in this encounter Care Teams Senior Attorney Relationship Specialty Start Date End Date Tremaine Shankar MD 1 [facility] 1 [place] [phone] PCP - General 10/18/15 06/21/18 Brittaney Gutiérrez MD PhD [address] [place] [address] 2 [place] [address] PCP - Alternate 10/21/15 02/12/18 documented as of this encounter
--- OUTSIDE RECORDS SUMMARY | 2024-06-16 15:26 | XMS_ITS | Encounter Summary ---
Author Organization [facility] Address [address] [place] [address] Care Team Providers Care Billing Coordinator Name Role Phone Tremaine Shankar MD Primary Care Provider + Brittaney Gutiérrez MD PhD Unavailable [phone] Reason for Visit * Reason Onset Date Comments Provider Referred 05/16/2017 Encounter Details Date Type Department Care Team (Late st Contact Info) Description 05/16/2017 Telephone [facility] Dermatology 3rd Floor [facility] [address] [place], [place] [address] Tanya Hollis MD 111 [facility], Level [address] [place] [address] Provider Referred Social History Tobacco Use Types Packs/Day Years [...] encounter Miscellaneous Notes * Telephone Encounter - Rena Boyd RN - 05/16/2017 1512 EDT Patient scheduled 06/05/17 at 330 with Stefanie BOYD RN 05/16/2017 15:13 * Telephone Encounter - Lien Bah - 05/16/2017 1504 EDT Eczema is currently active, patient needs appointment documented in this encounter Plan of [...] about your health please visit: https://[facility].org/medcenter/Pages/Wellness-Resources/Yibyeltkp-Qrtkgf-Yg sourc e-Center.aspx documented as of this encounter Visit Diagnoses Not on filedocumented in this encounter Care Teams Billing Coordinator Relationship Specialty Start Date End Date Tremaine Shankar MD [address] [place] [address] 1 [place] [phone] PCP - General 10/18/15 06/21/18 Brittaney Gutiérrez MD PhD [address] [place] [address] 2 [place] [address] PCP - Alternate 10/21/15 02/12/18 documented as of this encounter
--- OUTSIDE RECORDS SUMMARY | 2024-06-16 15:26 | XMS_ITS | Encounter Summary ---
Author Organization [facility] Address [address] [place] [address] Care Team Providers Care Healthcare Financial Analyst Name Role Phone Tremaine Shankar MD Primary Care Provider + Brittaney Gutiérrez MD PhD Unavailable [phone] Reason for Visit * Reason Comments Other Encounter Details Date Type Department Care Team (Late st Contact Info) Description 06/27/2016 [facility] Adult Primary Care [address] [id number] Katrina Doran MD Other Social History Tobacco Use Types Packs/Day [...] No 05/30/2016 documented as of this encounter Plan of [...] learn more about your health please visit: https://www.[facility].org/medcenter/Pages/Wellness-Resources/Svewjqdnk-Hisfwv-Ey sourc e-Center.aspx documented as of this encounter Visit Diagnoses Not on filedocumented in this encounter Care Teams Healthcare Financial Analyst Relationship Specialty Start Date End Date Tremaine Shankar MD 1 [facility] Level 1 [place] [phone] PCP - General 10/18/15 06/21/18 Brittaney Gutiérrez MD PhD [address] [facility] 2 [place] [phone] PCP - Alternate 10/21/15 02/12/18 documented as of this encounter
--- OUTSIDE RECORDS SUMMARY | 2024-06-16 15:26 | XMS_ITS | Encounter Summary ---
Author Organization [facility] Address [address] [place] [address] Care Team Providers Care Atmospheric Drier Tender Name Role Phone Tremaine Shankar MD Primary Care Provider + Brittaney Gutiérrez MD PhD Unavailable [phone] Reason for Visit * Reason Comments Depression Anxiety Encounter Details Date Type Department Care Team (Late st Contact Info) Description 01/23/2017 16:[address] [facility] Adult Primary [facility] - [address] [id number] Unknown, Provider, Chastity Marinelli [address] [place] [id number] Brittaney Gutiérrez MD PhD [address] [facility] 2 [place] [phone] Morbid obesity, unspecified obesity type (CMS-HCC) (HCC-CMS) (Primary Dx); Anxiety; Psychophysiological insomnia Discharge Disposition: Auto Discharge Social History Tobacco [...] Sign Reading Time Taken Comments Blood Pressure 118/82 01/23/2017 1616 EDT Pulse 80 01/23/2017 1616 EDT Temperature 36.5 ??C (97.7 ??F) 01/23/2017 1616 EDT Respiratory Rate 20 01/23/2017 1616 EDT Oxygen Saturation - - Inhaled Oxygen Concentration - - Weight 170.7 kg (376 lb 6.4 oz) 01/23/2017 1616 EDT Height - - Body Mass Index 52.53 10/11/2016 1432 EST documented in this encounter [...] Morbid (severe) obesity due to excess calories-E66.01[ICD-10-CM] F41.9 Anxiety disorder, unspecified-F41.9[ICD-10-CM] F51.04 Psychophysiologic insomnia-F51.04[ICD-10-CM] documented in this encounter Ordered Prescriptions Prescription Sig Dispensed Refills Start Date End Da te ARIPiprazole (ABILIFY) 5 mg tabletIndications:Anxiety Take 1 Tab by mouth daily. 30 Tab 3 01/23/2017 07/01/2017 LORazepam (ATIVAN) 1 mg tabletIndications:Anxiety Take 0.5 Tabs by mouth as needed for Anxiety (limit use to acute anxiety attcks). Daily Max: 1 mg 20 Tab 01/23/2017 06/04/2017 traZODone (DESYREL) 100 mg tabletIndications:Anxiety ,Psychophysiological insomnia Take 1.5 Tabs by mouth at bedtime. 45 Tab 3 01/23/2017 06/04/2017 documented in this encounter Discharge Disposition Disposition Code Departure Means Destination Auto Discharge documented in this encounter Progress Notes * Brittaney Gutiérrez MD PhD - 01/23/2017 1600 EDT Subjective: Patient ID: Venkata Zhao is an 31 y.o. male. Chief Complaint Patient presents with ??? Depression ??? Anxiety HPI Venkata has been doing well since his last visit with me. He feels that his depression and anxiety have been relatively well controlled. However, he recounts that one day at his full-time job in [employer] he felt suddenly overwhelmed, sad and anxious. He says he was tearful and had to sitin his car to regain himself. He called in sick to work several days after that and shortly thereafter quit his job. He says he had run out of Ativan and wished that he had some to use during that episode. He denies any other depressive symptoms, has not had any visual or auditory hallucinations, denies any feelings of paranoia. His relationship with his girlfriend has been going well. He has also since gotten a job working part-time at [email or web address]. Venkata says that he has been seeing a new therapist at the [facility]. He says that this relationship seems to be therapeutic and it getting to know each other well. He says they have not yet worked very much on cognitive behavioral strategies to control stress and anxiety. He has unfortunately also gained some weight since I last saw him. He is almost back up to his original weight when he first came to see me. He says that previously he has lost 30 pounds watching what he ate and increasing his exercise using a fit bit to track his activity. He feels strongly that he will be able to lose weight again. Patient Active Problem List Diagnosis ??? Allergic rhinitis ??? Scalp cyst ??? NIA (obstructive sleep apnea) ??? Morbid obesity ??? Psychotic episode ??? Eczema ??? Primary insomnia ??? Anxiety Outpatient Prescriptions Marked as Taking for the 01/23/17 encounter (Office Visit) with Brittaney Gutiérrez MD,PHD Medication Sig Dispense Refill ??? ARIPiprazole (ABILIFY) 5 mg tablet Take 1 Tab by mouth daily. 30 Tab 3 ??? [DISCONTINUED] ARIPiprazole (ABILIFY) 5 mg tablet Take 1 [...] acute anxiety attcks). Daily Max: 1 mg 10 Tab 0 ??? melatonin 3 mg tablet TAKE ONE TABLET BY MOUTH EVERY NIGHT AT BEDTIME NEEDED FOR INSOMNIA 30Tab 3 ??? therapeutic hand-body (EUCERIN ORIGINAL) lotion Apply topically as needed. ??? traZODone (DESYREL) 100 mg tablet Take 1.5 Tabs by mouth at bedtime. 45 Tab 3 ??? [DISCONTINUED] traZODone (DESYREL) 100 mg tablet Take 1.5 Tabs by mouth at bedtime. 45 Tab 3 Review of Systems Constitutional: Negative for chills, fever, malaise/fatigue and weight loss (noted20 pound weight gain in last 3 months). HENT: Negative for tinnitus. Respiratory: Negative for cough, shortness of breath and wheezing. Cardiovascular: Negative for chest pain, palpitations and leg swelling. Gastrointestinal: Negative for abdominal pain, constipation, diarrhea, nausea and vomiting. Genitourinary: Negative for dysuria. Musculoskeletal: Negative for myalgias. Skin: Negative for rash. Neurological: Negative for dizziness, tingling, sensory change, weakness and headaches. Psychiatric/Behavioral: Negative for depression, hallucinations, substance abuse and suicidal ideas. The patient is nervous/anxious. The patient does not have insomnia. - See HPI Objective: BP 118/82 Pulse 80 Temp 36.5 ??C (97.7 ??F) (Tympanic) Resp 20 Wt (!) 170.7 kg (376 lb 6.4 oz) BMI 52.53 kg/m2 Physical Exam Constitutional: He is oriented to person, place, and time. He appears well- developed and well-nourished. HENT: Mouth/Throat: Mucous membranes are moist. Dentition is normal. No tonsillar exudate. Pharynx is normal. Eyes: Conjunctivae and EOM are normal. No scleral icterus. Neck: No thyromegaly present. Cardiovascular: Normal rate, regular rhythm and normal heart sounds. Exam reveals no gallop and no friction rub. No murmur heard. Pulmonary/Chest: Breath sounds normal. No respiratory distress. He has no wheezes. He has no rales.He exhibits no tenderness. Abdominal: He exhibits no distension. There is no tenderness. Musculoskeletal: He exhibits no edema or tenderness. Lymphadenopathy: He has no cervical adenopathy. Neurological: He is alert and oriented to person, place, and time. Skin: Skin is warm and dry. No rash noted. Psychiatric: He has a normal mood and affect. His behavior is normal. Judgment and thought content normal. Assessment / Plan: Venkata has been making good strides in the controlling his mental illness. His paranoia and depression seen. The most part fairly well-controlled on his current regimen, but I do think it is worth him having small amount of Ativan on hand in case of severe panic-like anxiety. We will refill 20 tablets for 3 month., As well as renew his aripiprazole and trazodone. In terms of his other medical problems his morbid obesity continues to be a significant impactor ofhis health. His cholesterol was in the normal range when we tested it several months ago and his hemoglobin A1c was normal, however his obesity makes him at high risk. I encouraged him to make a weight school and to plan for achieving it. He stated that he wanted to lose 30 pounds by his next visitwith me in 3 months, focusing on changing his diet cutting out carbs and adding in good protein andfat. Venkata was seen today for depression and anxiety. Diagnoses and all orders for this visit: Morbid obesity, unspecified obesity type Anxiety - traZODone (DESYREL) 100 mg tablet; Take 1.5 Tabs by mouth at bedtime. - LORazepam (ATIVAN) 1 mg tablet; Take 0.5 Tabs by mouth as needed for Anxiety (limit use to acute anxiety attcks). Daily Max: 1 mg - ARIPiprazole (ABILIFY) 5 mg tablet; Take 1 Tab by mouth daily. Psychophysiological insomnia - traZODone (DESYREL) 100 mg tablet; Take 1.5 Tabs by mouth at bedtime. This patient was staffed with Dr. Marinelli. He will return in 3 months or sooner if necessary Brittaney Gutiérrez MD,PHD 01/23/2017 17:05 * Chastity Marinelli MD - 01/23/2017 1600 EDT I discussed the the patient with the resident at the time of the patient's visit. I agree with the findings and plan of care documented in the resident's note. 17:15 01/23/2017 Chastity Marinelli MD documented in this encounter Plan of [...] your health please visit: [email or web address]-[email or web address]-[email or web address] sourc e-Center.aspx documented as of this encounter Visit Diagnoses Diagnosis Morbid obesity, unspecified obesity type (HCC-CMS)- Primary Anxiety Anxiety state, unspecified Psychophysiological insomnia Persistent disorder of initiating or maintaining sleep documented in this encounter Discontinued Medications Medication Sig Discontinue Reason Start Date End Da te traZODone (DESYREL) 100 mg tabletIndications:Anxiet y,Psychophysiological insomnia Take 1.5 Tabs by mouth at bedtime. Reorder 10/11/2016 01/23/2017 LORazepam (ATIVAN) 1 mg tabletIndications:Anxiet y Take 0.5 Tabs by mouth as needed for Anxiety (limit use to acute anxiety attcks). Daily Max: 1 mg Reorder 10/11/2016 01/23/2017 ARIPiprazole (ABILIFY) 5 mg tabletIndications:Anxiet y Take 1 Tab by mouth daily. Reorder 10/30/2016 01/23/2017 documented as of this encounter Care Teams Atmospheric Drier Tender Relationship Specialty Start Date End Date Tremaine Shankar MD 1 [facility] 1 [place] [phone] PCP - General 10/18/15 06/21/18 Brittaney Gutiérrez MD PhD [address] [place] [address], [facility] [address] [place] [phone] PCP - Alternate 10/21/15 02/12/18 documented as of this encounter
--- OUTSIDE RECORDS SUMMARY | 2024-06-16 15:26 | XMS_ITS | Encounter Summary ---
Author Organization [facility] Address [address] [place] [address] Care Team Providers Care Poker Machine Attendant Name Role Phone Tremaine Shankar MD Primary Care Provider + Brittaney Gutiérrez MD PhD Unavailable [phone] Reason for Visit * Reason Comments Other Encounter Details Date Type Department Care Team (Late st Contact Info) Description 10/29/2016 Refill [facility] Adult Primary Care [address] [phone] Brittaney Gutiérrez MD PhD [address] [facility], [address] [place] [address] Other Social History Tobacco Use [...] No 10/11/2016 documented as of this encounter Ordered Prescriptions Prescription Sig Dispensed Refills Start Date End Da te ARIPiprazole (ABILIFY) 5 mg tabletIndications:Anxiety Take 1 Tab by mouth daily. 30 Tab 3 10/30/2016 01/23/2017 documented in this encounter Miscellaneous Notes * Telephone Encounter - Charline Cross RN - 10/30/2016 1637 EST Medication(s) Requested: Abilify- sending to provider to refill Preferred Pharmacy: [facility] Is patient out of medication? Unknown Last Refill Date: 07/31/16 Last Visit Date with Ordering Provider: 10/11/16 Next Visit Date as it relates to the requested medication: 11/15/16 Last Related Labs Date: SADE CROSS RN 10/30/2016 16:37 documented in this encounter Plan of Treatment [...] your health please visit: [email or web address]/Pages/Wellness-Resources/Pkbtqlanc-Lqfuax-Sl sourc e-Center.aspx documented as of this encounter Visit Diagnoses Diagnosis Anxiety- Primary Anxiety state, unspecified documented in this encounter Discontinued Medications Medication Sig Discontinue Reason Start Date End Da te ARIPiprazole (ABILIFY) 5 mg tabletIndications:Anxiety Take 1 Tab by mouth daily. Reorder 07/31/2016 10/29/2016 documented as of this encounter Care Teams Poker Machine Attendant Relationship Specialty Start Date End Date Tremaine Shankar MD 1 [facility] 1 [place] [phone] PCP - General 10/18/15 06/21/18 Brittaney Gutiérrez MD PhD [address] [facility], [address] [place] [phone] PCP - Alternate 10/21/15 02/12/18 documented as of this encounter
--- OUTSIDE RECORDS SUMMARY | 2024-06-16 15:26 | XMS_ITS | Encounter Summary ---
Author Organization [facility] Address [address] [place] [address] Care Team Providers Care Instructor Programmable Controllers Name Role Phone Tremaine Shankar MD Primary Care Provider + Brittaney Gutiérrez MD PhD Unavailable [phone] Reason for Referral * Referral (Routine/Next Available) - Specialty Report Received Specialty Diagnoses / Procedures Referred By Ada sandhu Referred To Contact Diagnoses Primary insomnia Anxiety Magali Jarvis FNP 1 [place] [address] Kennedy Holley, PhD [address] [facility] [place] [address] Referral ID Status Reason Start Date Expiration Date Visits Requested Visits Authorized [id number] Specialty Report Received Specialty Services Required 05/22/2016 1 1 Question Answer Reason for Request: depression, insomnia, possible psychotic disorder * Consult (Routine/Next Available) - Closed Specialty Diagnoses / Procedures [facility] Referred To Contact General Internal Medicine Diagnoses Anxiety Primary insomnia Magali Jarvis FNP 1 [place] [address] Amilcar Mcdaniels MD [address] [facility] 4 [place] [address] Referral ID Status Reason Start Date Expiration Date V isits Requested Visits Authorized [id number] Closed Specialty Services Required 05/22/2016 1 1 Question Answer Reason for Request: insomnia, paranoia, possible delusion? + hx psychotic episode with hospitalization @ [facility] in 2012. +FH schizophrenia in dad Reason for Visit * Reason Comments Insomnia Anxiety with paranoia Encounter Details Date Type Department Care Team (Late st Contact Info) Description 05/22/2016 8:00 EDT Office Visit [facility] Adult Primary Care [facility] 1 [place], [place] [address] Nicolle Feliz, TRAY De Los Santos [address] [place], [place] [id number] Primary insomnia (Primary Dx); Anxiety Discharge Disposition: Auto Discharge Social History Tobacco [...] Sign Reading Time Taken Comments Blood Pressure 130/78 05/22/2016 075 EDT Pulse 76 05/22/2016 075 EDT Temperature 36.6 ??C (97.9 ??F) 05/22/2016 075 EDT Respiratory Rate 16 05/22/2016 075 EDT Oxygen Saturation - - Inhaled Oxygen Concentration - - Weight 163.7 kg (361 lb) 05/22/2016 075 EDT Height 180.3 cm (5' 10.98) 05/22/2016 075 EDT Body Mass Index 50.38 05/22/2016 0757 EDT documented in this encounter Functional Status Functional Status Response Date of Assess ment Because of a physical, menta l, or emotional condition, does this person have difficulty doing errands alone such as visiting a doctor's office or shopping? No 05/22/2016 Cognitive Status Response Date of Assessm ent Because of a physical, menta l, or emotional condition, does this person have serious difficulty concentrating, remembering, or making decisions? No 05/22/2016 documented as of this encounter Discharge Diagnoses Diagnosis F51.01 Primary insomnia-F51.01[ICD-10-CM] F41.9 Anxiety disorder, unspecified-F41.9[ICD-10-CM] documented in this encounter Patient Instructions * Patient Instructions* Magali Valverde - 05/22/2016 8:01 EDT Images from the original note were not included. Start the trazodone at bedtime. It is ok to use the lorazepam for severe anxiety. Call Kennedy Holley, PhD at to see if he has an opening [facility] Patient Instructions Insomnia: Care Instructions Your Care Instructions Insomnia is the inability to sleep well. It is a common problem for most people at some time. Insomnia may make it hard for you to get to sleep, stay asleep, or sleep as long as you need to. This canmake you tired and grouchy during the day. It can also make you forgetful, less effective at work, and unhappy. Insomnia can be caused by conditions such as depression or anxiety. Pain can also affect your ability to sleep. When these problems are solved, the insomnia usually clears up. But sometimes bad sleephabits can cause insomnia. If insomnia is affecting your work or your enjoyment of life, you can take steps to improve your sleep. Follow-up care is a ro part of your treatment and safety. Be sure to make and go to all appointments, and call your doctor if you are having problems. It???s also a good idea to know your test results and keep a list of the medicines you take. How can you care for yourself at home? What to avoid ?? Do not have drinks with caffeine, such as coffee or black tea, for 8 hours before bed. ?? Do not smoke or use other types of tobacco near bedtime. Nicotine is a stimulant and can keep you awake. ?? Avoid drinking alcohol late in the evening, because it can cause you to wake in the middle of the night. ?? Do not eat a big meal close to bedtime. If you are hungry, eat a light snack. ?? Do not drink a lot of water close to bedtime, because the need to urinate may wake you up duringthe night. ?? Do not read or watch TV in bed. Use the bed only for sleeping and sexual activity. What to try ?? Go to bed at the same time every night, and wake up at the same time every morning. Do not take naps during the day. ?? Keep your bedroom quiet, dark, and cool. ?? Get regular exercise, but not within 3 to 4 hours of your bedtime. ?? Sleep on a comfortable pillow and mattress. ?? If watching the clock makes you anxious, turn it facing away from you so you cannot see the time. ?? If you worry when you lie down, start a worry book. Well before bedtime, write down your worries, and then set the book and your concerns aside. ?? Try meditation or other relaxation techniques before you go to bed. ?? If you cannot fall asleep, get up and go to another room until you feel sleepy. Do something relaxing. Repeat your bedtime routine before you go to bed again. ?? Make your house quiet and calm about an hour before bedtime. Turn down the lights, turn off the TV, log off the computer, and turn down the volume on music. This can help you relax after a busy day. When should you call for help? Watch closely for changes in your health, and be sure to contact your doctor if: ?? Your efforts to improve your sleep do not work. ?? Your insomnia gets worse. ?? You have been feeling down, depressed, or hopeless or have lost interest in things that you usually enjoy. Where can you learn more? Go to www.[email or web address].net/[facility] or log into your [employer] account at [email or web address] Enter P513 in the search box to learn more about Insomnia: Care Instructions. ?? [id number] [employer]. Care instructions adapted under license by [facility] This care instruction is for use with your licensed healthcare professional. If you have questions about a medical condition or this instruction, always ask your healthcare professional. [employer] disclaims any warranty or liability for your use of this information. Content Version: 10.8.491059; Current as of: August 13, 2015 documented in this encounter Ordered Prescriptions Prescription Sig Dispensed Refills Start Date End Da te LORazepam (ATIVAN) 1 mg tablet Take 0.5-1 Tabs by mouth 2 times daily as needed for Anxiety. Daily Max: 2 mg 10 Tab 05/22/2016 05/30/2016 traZODone (DESYREL) 100 mg tablet Take 1 Tab by mouth at bedtime. 14 Tab 1 05/22/2016 05/30/2016 documented in this encounter Discharge Disposition Disposition Code Departure Means Destination Auto Discharge documented in this encounter Progress Notes * Magali Valverde - 05/22/2016 0801 EDT Subjective: Venkata Zhao is an 31 y.o. male who complains of insomnia and anxiety. Onset of insomnia was 5 or more years ago. He is accompanied by his partner. His partner is giving most of the history at Venkata's request. Currently with an exacerbation over the last several weeks, getting less than 6 hours of sleep a night. avoids going to bed because he knows he can't quiet his mind. Patient describes symptoms as frequent night time awakening and difficulty falling asleep. Patient has found no reliefwith avoiding jailyn naps during the day, over the counter diphenhdramine, melatonin use, regular daily exercise and Use of his CPAP. He continues to use his CPAP faithfully.. Other associated symptoms i nclude anxiety, Recurrent belief that his thoughts are being transmitted by his radio. 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 Those records are not available to us. Father has schizophrenia, sister has mental illness. Patient denies frequent nighttime urination, leg cramps, restless legs. Symptoms have gradually worsened. He is experiencing stress in his new job as an [employer]. He called yesterday, has today off and does notthink he can go back to work tomorrow. He was working evenings and has switched to day shift which is more difficult for him. He reports there is too much going on during the day, very noisy and busyso that he can't tune all of this out and this is a lot of stress. He did not experience this much during his evening shift. His partner reports they had requested a change in shift so that there arework shifts were more compatible. She is a schoolteacher. They plan to leave here and go work with his vocational rehab counselor to see if he should look for another job. His partner reports they are interested in minimal medication, would like a prescription for lorazepam which has helped him in the past with his sleep. She is adamantly opposed to him taking zolpidem(reports her mom is a therapist and has told her terrible things about this medication). They wouldalso like a referral to a psychiatrist and a therapist. He is currently on Medicare but as of May 25 he may have a different insurance through [facility]. Current Outpatient Prescriptions Medication Sig Dispense Refill ??? clotrimazole (LOTRIMIN) 1 % cream Apply to affected area twice daily (Patient not taking: Reported on 05/10/2016) 15 g 0 ??? diphenhydrAMINE (BENADRYL) 25 mg capsule Take 1-2 Caps by mouth at bedtime as needed for Sleep.(Patient not taking: Reported on 05/10/2016) ??? melatonin 3 mg tablet Take 1 Tab by mouth at bedtime as needed (insomnia). (Patient taking differently: Take 10 mg by mouth at bedtime as needed (insomnia). ) 30 Tab 3 No current facility-administered medications for this visit. Review of Systems Constitutional: positive for fatigue Respiratory: positive for sleep apnea which is well controlled with his CPAP Objective: Visit Vitals ??? BP 130/78 (BP Cuff Location: Left arm, Patient Position: Sitting, BP Cuff Sizes: Adult, large) ??? Pulse 76 ??? Temp 36.6 ??C (97.9 ??F) (Tympanic) ??? Resp 16 ??? Ht 180.3 cm (70.98) ??? Wt (!) 163.7 kg (361 lb) ??? BMI 50.38 kg/m2 General appearance: morbidly obese Skin: Skin color, temperature, turgor normal. No rashes or lesions Behavioral: alert, cooperative, fully oriented. Eye contact varies from fair to staring. Speech is soft, normal rate, rhythm and tone. Affect is blunted, tearful and anxious mood. Venkata sits quietlyin the chair. Becomes tearful when some of the story is being related by his girlfriend. Occasionally tries to interrupt her to say something and gives up when she doesn't stop talking. When he does offer information his thoughts are logical, goal-directed. He admits to being suspicious about radios and televisions transmitting his thoughts although he knows that they can't really do that. When asked about hearing voices he hesitates, his girlfriend answers no he doesn't. When I ask him againdirectly he denies any auditory hallucinations. I suspect that he is indeed hearing voices and may not have admitted this to his partner. He denies any suicidal ideation. Assessment: Presenting concern is insomnia however it's clear that he has significant mental health issues going on. History of psychotic illness, need to rule out schizophrenia, paranoid versus bipolar. He was not willing to meet with me alone because he wanted his partner to help him give his history. Plan: Discussed my concerns about recurrent psychotic illness, he and his partner would prefer to avoid antipsychotics. Will refer to Kennedy Holley PhD for counseling and if Dr. Holley does not have availability I would refer him to [facility]. Meanwhile will request consult with Dr. Mcdaniels. Avoid caffeine. Recommended daily exercise. Short course of trazodone at bedtime, lorazepam may be used twice daily if needed. Limited number of tablets of each were prescribed. Follow up in 1 week or sooner if not improving. They've been given the crisis number and strongly encouraged to call if his symptoms worsen. He may need to be hospitalized if his symptoms get worse. documented in this encounter Plan of Treatment Scheduled Referrals Name Type Priority Associated Diagnoses Order Schedule AMB CONS/FOLLOW UP PSYCH (ADULT PC/FAM MED/OB/NEURO OR EXTERNAL REF) Outpatient Referral MICHELA Anxiety Primary insomnia Ordered: 05/22/2016 AMB CONS/FOLLOW UP PSYCHOLOGY Outpatient Referral Routine Primary insomnia Anxiety Ordered: 05/22/2016 documented as of this encounter Goals Goal [...] more about your health please visit: https://www.[facility].org/medcenter/Pages/Wellness-Resources/Bovclouof-Oynmsn-Eu sourc e-Center.aspx documented as of this encounter Visit Diagnoses Diagnosis Primary insomnia- Primary Persistent disorder of initiating or maintaining sleep Anxiety Anxiety state, unspecified documented in this encounter Historical Medications * This list may reflect changes made after this encounter. Medication Sig Dispensed Refills Start Date End Date therapeutic hand-body (EUCERIN ORIGINAL) lotion Apply topically as needed. 10/04/2020 added in this encounter Care Teams Instructor Programmable Controllers Relationship Specialty Start Date End Date Tremaine Shankar MD 1 [facility] Level 1 [place] [address] PCP - General 10/18/15 06/21/18 Brittaney Gutiérrez MD PhD [address] [place] [address] 2 [place] [address] PCP - Alternate 10/21/15 02/12/18 documented as of this encounter
--- OUTSIDE RECORDS SUMMARY | 2024-06-16 15:26 | XMS_ITS | Encounter Summary ---
Author Organization [facility] Address [address] [place] [address] Care Team Providers Care Biological Scientist Name Role Phone Tremaine Shankar MD Primary Care Provider + Brittaney Gutiérrez MD PhD Unavailable [phone] Reason for Visit * Reason Onset Date Comments Results 10/13/2016 Encounter Details Date Type Department Care Team (Late st Contact Info) Description 10/13/2016 Telephone [facility] Adult Primary Care - [address] [id number] Brittaney Gutiérrez MD PhD [address] [place] [address], [facility] 2 [place] [address] Results Social History Tobacco Use Types Packs/Day Years [...] encounter Miscellaneous Notes * Telephone Encounter - Brittaney Gutiérrez MD PhD - 10/13/2016 1810 EST Called Venkata to let him know his cholesterol tests were normal. No need to follow up. * Telephone Encounter - Brittaney Gutiérrez MD PhD - 10/13/2016 1809 EST ----- Message from Tremaine Shankar MD sent at 10/13/2016 16:19 EST ----- ----- Message ----- From: Drake, Lab Results In One Sent: 10/13/2016 11:01 To: Tremaine Shankar MD documented in this encounter Plan of [...] more about your health please visit: https://www.[facility].org/medcenter/Pages/Wellness-Resources/Ofmztyoun-Oqzeqa-Af [facility] e-Center.aspx documented as of this encounter Visit Diagnoses Not on filedocumented in this encounter Care Teams Biological Scientist Relationship Specialty Start Date End Date Tremaine Shankar MD [address] [place] [address] 1 [place] [phone] PCP - General 10/18/15 06/21/18 Brittaney Gutiérrez MD PhD [address] [place] [address] 2 [place] [phone] PCP - Alternate 10/21/15 02/12/18 documented as of this encounter
--- OUTSIDE RECORDS SUMMARY | 2024-06-16 15:26 | XMS_ITS | Encounter Summary ---
Author Organization [facility] Address [address] [place] [address] Care Team Providers Care Stone Splitter Name Role Phone Tremaine Shankar MD Primary Care Provider + Brittaney Gutiérrez MD PhD Unavailable [phone] Reason for Visit * Reason Onset Date Comments No Show 11/15/2016 Encounter Details Date Type Department Care Team (Late st Contact Info) Description 11/15/2016 Telephone [facility] Adult Primary [facility] - [place] [address] [place], [place] [id number] Tremaine Shankar MD 1 [facility] Level 1 [place] [address] No Show Social History Tobacco Use Types [...] * Telephone Encounter - Anca Ta - 11/15/2016 1347 EST 1st no show. Message left to call back if he would like to reschedule. * Telephone Encounter - Aide Villalba - 11/15/2016 1333 EST NO SHOW documented in this encounter Plan of Treatment [...] learn more about your health please visit: https://www.[facility].org/medcenter/Pages/Wellness-Resources/Xpaqfubiq-Qppncj-Zm [facility] e-Center.aspx documented as of this encounter Visit Diagnoses Not on filedocumented in this encounter Care Teams Stone Splitter Relationship Specialty Start Date End Date Tremaine Shankar MD 1 [facility] 1 [place] [address] PCP - General 10/18/15 06/21/18 Brittaney Gutiérrez MD PhD [address] [place] [address] 2 [place] [address] PCP - Alternate 10/21/15 02/12/18 documented as of this encounter
--- OUTSIDE RECORDS SUMMARY | 2024-06-16 15:26 | XMS_ITS | Encounter Summary ---
Author Organization [facility] Address [address] [place] [address] Care Team Providers Care Computational Theory Scientist Name Role Phone Tremaine Shankar MD Primary Care Provider + Brittaney Gutiérrez MD PhD Unavailable [phone] Reason for Visit * Reason Comments Other Encounter Details Date Type Department Care Team ([facility] st Contact Info) Description 07/25/2016 [facility] Adult Primary Care [facility] 1 [place], [place] [address] Nicolle Sample Wrapper, Magali EMERGENCY VETERINARY TECHNICIAN [address] [place], [place] [address] Other Social History Tobacco Use Types Packs/Day [...] about your health please visit: https://www.[facility].org/medcenter/Pages/Wellness-Resources/Kxnvxlkwu-Fhftyt-Cz [facility] e-Center.aspx documented as of this encounter Visit Diagnoses Diagnosis Anxiety Anxiety state, unspecified Psychophysiological insomnia Persistent disorder of initiating or maintaining sleep documented in this encounter Care Teams Computational Theory Scientist Relationship Specialty Start Date End Date Tremaine Shankar MD [address] [place] [address] 1 [place] [phone] PCP - General 10/18/15 06/21/18 Brittaney Gutiérrez MD PhD [address] [place] [address] 2 [place] [phone] PCP - Alternate 10/21/15 02/12/18 documented as of this encounter
--- OUTSIDE RECORDS SUMMARY | 2024-06-16 15:26 | XMS_ITS | Encounter Summary ---
Author Organization [facility] Address [address] [place] [address] Care Team Providers Care Maintenance Foreman Name Role Phone Tremaine Shankar MD Primary Care Provider + Brittaney Gutiérrez MD PhD Unavailable [phone] Reason for Visit * Reason Comments Anxiety follow up Insomnia follow up Encounter Details Date Type Department Care Team (Late st Contact Info) Description 05/30/2016 8:30 EDT Office Visit [facility] 1 [place], [place] [address] Nicolle Macroeconomics Professor, TRAY De Los Santos 1 [place], [place] [phone] Anxiety (Primary Dx); Psychophysiological insomnia Discharge Disposition: Auto Discharge Social [...] Sign Reading Time Taken Comments Blood Pressure 116/74 05/30/2016 0835 EDT Pulse 70 05/30/2016 0835 EDT Temperature 37 ??C (98.6 ??F) 05/30/2016 0835 EDT Respiratory Rate 16 05/30/2016 0835 EDT Oxygen Saturation - - Inhaled Oxygen Concentration - - Weight 163.7 kg (361 lb) 05/30/2016 0835 EDT Height 180.3 cm (5' 10.98) 05/30/2016 0835 EDT Body Mass Index 50.38 05/30/2016 0835 EDT documented in this encounter Functional Status [...] No 05/30/2016 documented as of this encounter Discharge Diagnoses Diagnosis F41.9 Anxiety disorder, unspecified-F41.9[ICD-10-CM] F51.04 Psychophysiologic insomnia-F51.04[ICD-10-CM] documented in this encounter Patient Instructions * Patient Instructions* Magali Valverde - 05/30/2016 9:[address] Holley at ([place]) He is a psychologist and I recommend that you see him for counseling about your anxiety and insomnia. Continue the trazodone every night, you can take lorazepam once nightly at bedtime. documented in this encounter Ordered Prescriptions Prescription Sig Dispensed Refills Start Date End Da te LORazepam (ATIVAN) 1 mg tabletIndications:Anxiety ,Psychophysiological insomnia Take 0.5-1 Tabs by mouth at bedtime as needed for up to 14 days for Anxiety. Daily Max: 1 mg 14 Tab 2 05/30/2016 06/13/2016 traZODone (DESYREL) 100 mg tabletIndications:Anxiety ,Psychophysiological insomnia Take 1 Tab by mouth at bedtime. 14 Tab 2 05/30/2016 07/18/2016 documented in this encounter Discharge Disposition Disposition Code Departure Means Destination Auto Discharge documented in this encounter Progress Notes * Magali Valverde - 05/30/2016 0830 EDT Subjective: Venkata Zhao is a 31 y.o. male who presents for follow up of anxiety disorder. Current symptomsinclude racing thoughts, psychomotor agitation, difficulty concentrating, insomnia. Trazodone was somewhat helpful for insomnia, but he still feels the lorazepam is the most helpful. 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 Venkata is not accompanied by his partner today. He denies current suicidal and homicidal ideation. He complains of the following side effects from the treatment: none. Has not used any illicit substances. Current Outpatient Prescriptions Medication Sig Dispense Refill ??? ARIPiprazole (ABILIFY) 5 mg tablet Take 1 Tab by mouth daily. 21 Tab 0 ??? clotrimazole (LOTRIMIN) 1 % cream Apply to affected area twice daily (Patient not taking: Reported on 05/30/2016) 15 g 0 ??? diphenhydrAMINE (BENADRYL) 25 mg capsule Take 1-2 Caps by mouth at bedtime as needed for Sleep.(Patient not taking: Reported on 05/30/2016) ??? LORazepam (ATIVAN) 1 mg tablet Take 1 Tab by mouth at bedtime as needed for up to 14 days for Anxiety. Daily Max: 1 mg 14 Tab 0 ??? melatonin 3 mg tablet Take 1 Tab by mouth at bedtime as needed (insomnia). (Patient taking differently: Take 10 mg by mouth at bedtime as needed (insomnia). ) 30 Tab 3 ??? therapeutic hand-body (EUCERIN ORIGINAL) lotion Apply topically as needed. ??? traZODone (DESYREL) 100 mg tablet Take 1 Tab by mouth at bedtime. 14 Tab 2 No current facility-administered medications for this visit. Objective: Visit Vitals ??? BP 116/74 (BP Cuff Location: Left arm, Patient Position: Sitting, BP Cuff Sizes: Adult, large) ??? Pulse 70 ??? Temp 37 ??C (98.6 ??F) (Tympanic) ??? Resp 16 ??? Ht 180.3 cm (70.98) ??? Wt (!) 163.7 kg (361 lb) ??? BMI 50.38 kg/m2 General: alert, cooperative Affect/Behavior: full facial expressions, normal thought patterns, normal perception normal speech patterns, good insight, good grooming, good eye contact. No SI Assessment: Anxiety Disorder with depression- unchanged Plan: Venkata was seen today for anxiety and insomnia. Med education & counseling done re: anxiety, sleep (still using cpap regularly), work stress. Diagnoses and all orders for this visit: Psychophysiological insomnia Anxiety - traZODone (DESYREL) 100 mg tablet; Take 1 Tab by mouth at bedtime. (Patient not taking: Reported on 06/26/2016) - LORazepam (ATIVAN) 1 mg tablet; Take 0.5-1 Tabs by mouth at bedtime as needed for up to 14 days for Anxiety. Daily Max: 1 mg I spent a total of 25 minutes in face to face time with this patient today and >50% of that timewas spent counseling the patient on the above concerns. Dr. Simental was the attending physician available in the clinic today if needed. A consultation was not required. documented in this encounter Plan of Treatment [...] learn more about your health please visit: https://www.[facility].org/medcenter/Pages/Wellness-Resources/Ikoxdazgm-Vsdfgx-Tm sourc e-Center.aspx documented as of this encounter Visit Diagnoses Diagnosis Anxiety- Primary Anxiety state, unspecified Psychophysiological insomnia Persistent disorder of initiating or maintaining sleep documented in this encounter Discontinued Medications Medication Sig Discontinue Reason Start Date End Da te traZODone (DESYREL) 100 mg tablet Take 1 Tab by mouth at bedtime. Reorder 05/22/2016 05/30/2016 LORazepam (ATIVAN) 1 mg tablet Take 0.5-1 Tabs by mouth 2 times daily as needed for Anxiety. Daily Max: 2 mg Reorder 05/22/2016 05/30/2016 documented as of this encounter Care Teams Maintenance Foreman Relationship Specialty Start Date End Date Tremaine Shankar MD 1 [facility] 1 [place] [address] PCP - General 10/18/15 06/21/18 Brittaney Gutiérrez MD PhD [facility] 2 [place] [phone] PCP - Alternate 10/21/15 02/12/18 documented as of this encounter
--- OUTSIDE RECORDS SUMMARY | 2024-06-16 15:26 | XMS_ITS | Encounter Summary ---
Author Organization [facility] Address [address] [place] [address] Care Team Providers Care Dental Lab Technician Name Role Phone Tremaine Shankar MD Primary Care Provider + Brittaney Gutiérrez MD PhD Unavailable [phone] Reason for Visit * Reason Comments PPD Reading Encounter Details Date Type Department Care Team (Late st Contact Info) Description 01/07/2016 8:30 EDT Nurse Only [facility] - [address] [id number] Unknown, Provider, Ria Man MD [address] [phone] [place] Nurse, [facility], RN Encounter for PPD skin test reading (Primary Dx) Social History Tobacco Use Types [...] visiting a doctor's office or shopping? No 12/21/2015 Cognitive Status Response Date of Assessm ent Because of a physical, menta l, or emotional condition, does this person have serious difficulty concentrating, remembering, or making decisions? No 12/21/2015 documented as of this encounter Discharge Diagnoses Diagnosis Z11.1 Encounter for screening for respiratory tuberculosis-Z11.1[ICD-10-CM] documented in this encounter Progress Notes * Chowdhury, Bianca - 01/07/2016 0854 EDT Patient here for PPD Reading PPD read and results documented in Enter Edit Results. Result: 0 mm induration. I was supervised by Dr. Man who was present and immediately available in the office suite. Bianca Chowdhury LPN 01/07/2016 8:54 documented in this encounter Plan of Treatment [...] about your health please visit: https://www.[facility].org/medcenter/Pages/Wellness-Resources/Isrznackd-Jqsthn-Vr sourc e-Center.aspx documented as of this encounter Visit Diagnoses Diagnosis Encounter for PPD skin test reading- Primary Other follow-up examination documented in this encounter Care Teams Dental Lab Technician Relationship Specialty Start Date End Date Tremaine Shankar MD [address] [place] [address] 1 [place] [phone] PCP - General 10/18/15 06/21/18 Brittaney Gutiérrez MD PhD [address] [place] [address] 2 [place] [address] PCP - Alternate 10/21/15 02/12/18 documented as of this encounter
--- OUTSIDE RECORDS SUMMARY | 2024-06-16 15:26 | XMS_ITS | Encounter Summary ---
Author Organization [facility] Address [address] [place] [address] Care Team Providers Care Miller Head Wet Process Name Role Phone Tremaine Shankar MD Primary Care Provider + Brittaney Gutiérrez MD PhD Unavailable [phone] Encounter Details Date Type Department Care Team (Latest Contact Info) Description 10/13/2016 8:58 EST - 10/13/2016 23:59 [facility] Hospital Encounter [address] [address] Tremaine Shankar MD [address] [place] [phone] Discharge Disposition: Home or Self Care Social [...] No 10/11/2016 documented as of this encounter Discharge Diagnoses Diagnosis E66.01 Morbid (severe) obesity due to excess calories-E66.01[ICD-10-CM] T88.7XXA Unspecified adverse effect of drug or medicament, initial encounter-T88.7XXA[ICD-10-CM] documented in this encounter Medications at Time of Discharge Medication Sig Dispensed Refills Start Date End Date ARIPiprazole (ABILIFY) 5 mg tabletIndications:Anxie ty Take 1 Tab by mouth daily. 21 Tab 3 07/31/2016 10/29/2016 diphenhydrAMINE (BENADRYL) 25 mg capsule Take 1-2 Caps by mouth at bedtime as needed for Sleep. 01/05/2016 01/11/2018 LORazepam (ATIVAN) 1 mg tabletIndications:Anxie ty Take 0.5 Tabs by mouth as needed for Anxiety (limit use to acute anxiety attcks). Daily Max: 1 mg 10 Tab 10/11/2016 01/23/2017 melatonin 3 mg tablet TAKE ONE TABLET BY MOUTH EVERY NIGHT AT BEDTIME NEEDED FOR INSOMNIA 30 Tab 3 09/18/2016 04/01/2020 therapeutic hand-body (EUCERIN ORIGINAL) lotion Apply topically as needed. 10/04/2020 traZODone (DESYREL) 100 mg tabletIndications:Anxie ty,Psychophysiological insomnia Take 1.5 Tabs by mouth at bedtime. 45 Tab 3 10/11/2016 01/23/2017 documented as of this encounter Discharge Disposition Disposition Code Departure Means Destination Home or Self Mcfp documented in this encounter Plan of Treatment [...] about your health please visit: https://[facility].org/medcenter/Pages/Wellness-Resources/Pryjoqcji-Kvqhdc-Vs [facility] e-Center.aspx documented as of this encounter Visit Diagnoses Not on filedocumented in this encounter Care Teams Miller Head Wet Process Relationship Specialty Start Date End Date Tremaine Shankar MD 1 [facility] Level 1 [place] [phone] PCP - General 10/18/15 06/21/18 Brittaney Gutiérrez MD PhD 111 [facility] 2 [place] [phone] PCP - Alternate 10/21/15 02/12/18 documented as of this encounter
--- OUTSIDE RECORDS SUMMARY | 2024-06-16 15:26 | XMS_ITS | Encounter Summary ---
Author Organization [facility] Address [address] [place] [address] Care Team Providers Care Driver Wheelchair Name Role Phone Tremaine Shankar MD Primary Care Provider + Brittaney Gutiérrez MD PhD Unavailable [phone] Reason for Visit * Reason Comments Obesity Encounter Details Date Type Department Care Team (Late st Contact Info) Description 02/10/2016 Community Health Team [facility] [address] [phone] Candice Villalobos Social History Tobacco Use Types Packs/Day Years [...] No 01/19/2016 documented as of this encounter Progress Notes * Candice Villalobos - 02/10/2016 9375 EDT Venkata Zhao has been working with a health cheerleading coach from the [facility] Health Team. Pt has not responded to several attempts made by T admin staff to rescheduled his apt cancelled in December. Pt has also not replied to email from [facility]. Pt will be considered INACTIVE with [facility], and is encouraged to call and set up an appointment in the future as needed. documented in this encounter Plan of Treatment [...] more about your health please visit: https://www.[facility].org/medcenter/Pages/Wellness-Resources/Vvytnoeqb-Dqinpi-Eq [facility] e-Center.aspx documented as of this encounter Visit Diagnoses Not on filedocumented in this encounter Care Teams Driver Wheelchair Relationship Specialty Start Date End Date Tremaine Shankar MD 1 [facility] 1 [place] [phone] PCP - General 10/18/15 06/21/18 Brittaney Gutiérrez MD PhD [address] [place] [address] 2 [place] [address] PCP - Alternate 10/21/15 02/12/18 documented as of this encounter
--- OUTSIDE RECORDS SUMMARY | 2024-06-16 15:26 | XMS_ITS | Encounter Summary ---
Author Organization [facility] Address [address] [place] [address] Care Team Providers Care Excellence Specialist Name Role Phone Tremaine Shankar MD Primary Care Provider + Brittaney Gutiérrez MD PhD Unavailable [phone] Reason for Visit * Reason Onset Date Comments Immunizations 02/25/2016 Encounter Details Date Type Department Care Team (Late st Contact Info) Description 02/25/2016 Telephone [facility] - [place] 1 [place], [place] [address] Tremaine Shankar MD 1 [facility] Level 1 [place] [address] Immunizations Social History Tobacco Use Types Packs/Day Years [...] No 01/19/2016 documented as of this encounter Miscellaneous Notes * Telephone Encounter - Aide Villalba - 02/25/2016 0954 EDT Patient is asking that his PPD testing and result be faxed to [employer] (his employer) to the [facility] there at [phone]. Information faxed as requested. documented in this encounter Plan of Treatment [...] learn more about your health please visit: https://[facility].org/medcenter/Pages/Wellness-Resources/Vfwyjmofc-Eluxmq-Yf [facility] e-Center.aspx documented as of this encounter Visit Diagnoses Not on filedocumented in this encounter Care Teams Excellence Specialist Relationship Specialty Start Date End Date Tremaine Shankar MD 1 [facility] 1 [place] [phone] PCP - General 10/18/15 06/21/18 Brittaney Gutiérrez MD PhD [address] [place] [address] 2 [place] [phone] PCP - Alternate 10/21/15 02/12/18 documented as of this encounter
--- OUTSIDE RECORDS SUMMARY | 2024-06-16 15:26 | XMS_ITS | Encounter Summary ---
Author Organization [facility] Address [address] [place] [address] Care Team Providers Care Upholstery Cleaner Name Role Phone Tremaine Shankar MD Primary Care Provider + Brittaney Gutiérrez MD PhD Unavailable [phone] Reason for Visit * Reason Comments Follow-up 2 month follow up Encounter Details Date Type Department Care Team (Late st Contact Info) Description 01/19/2016 8:40 EDT Office Visit [facility] Sleep Program - [address] [phone] Karen Vázquez [address] [place] [phone] NIA (obstructive sleep apnea) (Primary Dx) Social History Tobacco Use Types [...] Sign Reading Time Taken Comments Blood Pressure 122/76 01/19/2016 0841 EDT Pulse 78 01/19/2016 0841 EDT Temperature - - Respiratory Rate 14 01/19/2016 0841 EDT Oxygen Saturation 98% 01/19/2016 0841 EDT Inhaled Oxygen Concentration - - Weight 172.8 kg (381 lb) 01/19/2016 0841 EDT Height 180.3 cm (5' 10.98) 01/19/2016 0841 EDT Body Mass Index 53.16 01/19/2016 0841 EDT documented in this encounter Functional Status [...] as of this encounter Progress Notes * Lit Gomez MD - 01/19/2016 0849 EDT Name: Venkata Zhao : 1985 Date of Visit: 01/19/2016 HPI: Mr. Zhao is a 30 year old man with severe obstructive sleep apnea who returns for a follow-up of CPAP therapy. The patient reports that he had been using the CPAP every night. He is reportingclinical benefit from the therapy. He denies nocturnal respiratory symptoms. He has significant improvement in his daytime alertness, does not experience fatigue or sleepiness during the day. Occasionally he has difficulty falling asleep at night for which he had been using melatonin 3 mg as neededwhich is helping. DME: Tessie Harding, Mask: P10 nasal pillows Compliance report 12/20/2015-01/18/2016 Usage days , 97% of the days used for more than 4 hours, average daily usage 7 hours 9 minutes Pressure 5-15 centimeter H2O, median 6.1, 95th percentile 7.9 Eakes median 0, 95th percentile 6.8 AHI 0.3 Outpatient Prescriptions Marked as Taking for the 01/19/16 encounter (Office Visit) with Karen Vázquez MD Medication Sig Dispense Refill ??? melatonin 3 mg tablet Take 1 Tab by mouth at bedtime as needed (insomnia). 30 Tab 0 Allergies Allergen Reactions ??? Latex, Natural Rubber ROS: A ten point ROS was performed and was negative except for pertinent positives in the HPI. EXAM: Filed Vitals: 01/19/16 0841 BP: 122/76 Pulse: 78 Resp: 14 Height: 180.3 cm (70.98) Weight: 172.82 kg (381 lb) SpO2: 98% Heart: Regular rate and rhythm Lungs: Clear to auscultation A/P: This is a 30-year-old man with severe obstructive sleep apnea, ERICK 31, who is currently treated with CPAP therapy. Patient has excellent compliance. He is reporting clinical benefit from the useof the CPAP machine. He denies nocturnal respiratory symptoms and has significant improvement in his daytime symptoms. The machine download indicates adequate treatment of NIA on current pressures. He is comfortable with his current mask. He is using melatonin 3 mg for occasional difficulty initiating sleep which is helping. Patient is recommended to continue the nightly use of CPAP machine. Replaced the supplies of CPAP every 3-6 months. Follow-up in one year. Lit Gomez MD 01/19/2016 8:49 Attestation statement: I saw and examined the patient with the resident/fellow at the time of the visit. I agree with the findings and plan of care documented in the resident's/fellow's note. Karen Vázquez MD 01/20/2016 15:58 documented in this encounter Plan of [...] more about your health please visit: https://www.[facility].org/medcenter/Pages/Wellness-Resources/Oxtmxcjkn-Bmwmpd-Kk [facility] e-Center.aspx documented as of this encounter Visit Diagnoses Diagnosis NIA (obstructive sleep apnea)- Primary Obstructive sleep apnea (adult) (pediatric) documented in this encounter Care Teams Upholstery Cleaner Relationship Specialty Start Date End Date Tremaine Shankar MD 1 [facility] 1 [place] [address] PCP - General 1/25/16 9/28/18 Brittaney Gutiérrez MD PhD 111 [facility] 2 [place] [address] PCP - Alternate 10/21/15 02/12/18 documented as of this encounter
--- OUTSIDE RECORDS SUMMARY | 2024-06-16 15:26 | XMS_ITS | Encounter Summary ---
Author Organization [facility] Address [address] [place] [address] Care Team Providers Care Personal Banking Advisor Name Role Phone Tremaine Shankar MD Primary Care Provider + Brittaney Gutiérrez MD PhD Unavailable [phone] Reason for Visit * Reason Onset Date Comments Medications Refill 10/10/2016 Encounter Details Date Type Department Care Team (Late st Contact Info) Description 10/10/2016 Refill [facility] - [place] 1 [place], [place] [address] Tremaine Shankar MD 1 [facility] Level 1 [place] [address] Medications Refill Social History Tobacco [...] visiting a doctor's office or shopping? No 07/31/2016 Cognitive Status Response Date of Assessm ent Because of a physical, menta l, or emotional condition, does this person have serious difficulty concentrating, remembering, or making decisions? No 07/31/2016 documented as of this encounter Miscellaneous Notes * Telephone Encounter - Anca Ta - 10/10/2016 1315 EST Message left for the patient to call back to schedule an OV to discuss his Lorazepam. * Telephone Encounter - Brittaney Gutiérrez MD PhD - 10/10/2016 1205 EST Please schedule to come in to discuss with me this week. We are trying to taper/ dc benzo as a sleep aid. * Telephone Encounter - Marisol Perla - 10/10/2016 0823 EST Medication(s) Requested: Lorazepam Preferred Pharmacy: [facility] Is patient out of medication? Unknown Last Refill Date: 09.14.16 Last Visit Date with Ordering Provider: 07.31.16 Marisol Perla 10/10/2016 8:23 documented in this encounter Plan of Treatment [...] learn more about your health please visit: https://www.[facility].org/medcenter/Pages/Wellness-Resources/Sfseywkss-Nwbqgw-Lq [facility] e-Center.aspx documented as of this encounter Visit Diagnoses Diagnosis Anxiety- Primary Anxiety state, unspecified documented in this encounter Care Teams Personal Banking Advisor Relationship Specialty Start Date End Date Tremaine Shankar MD 1 [facility] 1 [place] [address] PCP - General 10/18/15 06/21/18 Brittaney Gutiérrez MD PhD 111 [facility] 2 [place] [address] PCP - Alternate 10/21/15 02/12/18 documented as of this encounter
--- OUTSIDE RECORDS SUMMARY | 2024-06-16 15:26 | XMS_ITS | Encounter Summary ---
Author Organization [facility] Address [address] [place] [address] Care Team Providers Care Application Security Architect Name Role Phone Tremaine Shankar MD Primary Care Provider + Brittaney Gutiérrez MD PhD Unavailable [phone] Reason for Visit * Reason Onset Date Comments Provider Referred 03/14/2016 Encounter Details Date Type Department Care Team (Late st Contact Info) Description 03/14/2016 Telephone [facility] Dermatology 3rd Floor [facility] [address] [place], [place] [phone] Dustin Luciano MD 111 [facility], Level [address] [place] [address] Provider Referred Social History Tobacco [...] Telephone Encounter - Rena Boyd RN - 03/14/2016 1607 EDT Patient reports: Dry skin on hands during the winter with pimply things on the fingers and palms of his hands on andoff for years The pimples can get cut easily, cracks Sometimes itchy Girlfriend thinks he has eczema Treatment has included: Betamethasone ointment-helps but it thins his skin Eucerin-helps Homeopathic cream-helps Patient scheduled 03/22/16 at 115 with MD RENA Collins RN 03/14/2016 16:19 * Telephone Encounter - Ninfa Hu - 03/14/2016 1245 EDT Call Documentation ?? Sonia Kim RN at 02/18/2016 10:26 ?? Status: Signed ?? Expand All Collapse All Referring provider informed that attempts to reach patient were unsuccessful. Sonia Kim RN? Krystian Chavez at 02/09/2016 ??9:44 ?? Status: Signed ?? Expand All Collapse All Brittaney Gutiérrez MD is referring patient for a rash on hands.?? Notes are in prism. ?? documented in this encounter Plan of Treatment [...] health please visit: https://www.[facility].org/medcenter/Pages/Wellness-Resources/Czotdredd-Fqurzo-Yi [facility] e-Center.aspx documented as of this encounter Visit Diagnoses Not on filedocumented in this encounter Care Teams Application Security Architect Relationship Specialty Start Date End Date Tremaine Shankar MD 1 [facility] 1 [place] [phone] PCP - General 10/18/15 06/21/18 Brittaney Gutiérrez MD PhD 111 [facility] 2 [place] [phone] PCP - Alternate 10/21/15 02/12/18 documented as of this encounter
--- OUTSIDE RECORDS SUMMARY | 2024-06-16 15:26 | XMS_ITS | Encounter Summary ---
Author Organization [facility] Address [address] [place] [address] Care Team Providers Care Residential Team Leader Name Role Phone Tremaine Shankar MD Primary Care Provider + Brittaney Gutiérrez MD PhD Unavailable [phone] Reason for Visit * Reason Comments Obesity Encounter Details Date Type Department Care Team (Late st Contact Info) Description 01/20/2016 Community Health Team [facility] Adult Primary Care - [address] [id number] Candice Villalobos Social History Tobacco Use Types [...] encounter Progress Notes * Candice Villalobos - 01/20/2016 0816 EDT Venkata e-mailed and called [facility] [employer] just before his 4:00pm apt at [employer] on 01/19/16 to cancel dueto a back injury earlier that day. Adult Primary Care [place], 1 [facility] Total Time: 10 min Referral: none Follow up: Admin, please contact pt to reschedule Status: Active documented in this encounter Plan of Treatment [...] your health please visit: [email or web address]/Pages/Wellness-Resources/Sbzgyfhlk-Safsod-Yj sourc e-Center.aspx documented as of this encounter Visit Diagnoses Not on filedocumented in this encounter Care Teams Residential Team Leader Relationship Specialty Start Date End Date Tremaine Shankar MD 1 [facility] 1 [place] [address] PCP - General 10/18/15 06/21/18 Brittaney Gutiérrez MD PhD [address] [place] [address] 2 [place] [address] PCP - Alternate 10/21/15 02/12/18 documented as of this encounter
--- OUTSIDE RECORDS SUMMARY | 2024-06-16 15:26 | XMS_ITS | Encounter Summary ---
Author Organization [facility] Address [address] [place] [address] Care Team Providers Care Branch Customer Service Representative Name Role Phone Tremaine Shankar MD Primary Care Provider + Brittaney Gutiérrez MD PhD Unavailable [phone] Reason for Referral * Consult (Routine/Next Available) - Closed Specialty Diagnoses / Procedures Referred By Contac t Referred To Contact Psychiatry Diagnoses Anxiety Psychophysiological insomnia Other assistant terminal manager (current) drug therapy Najma Main DO [address] [place] [address] [facility], Psychiatry [address] [place] [address] [id number] [place] [address] Referral ID Status Reason Start Date Expiration Date V isits Requested Visits Authorized [id number] Closed Specialty Services Required 07/31/2016 1 1 Question Answer Reason for Request: anxiety, psychosis NOS Reason for Visit * Reason Comments Medication Management Encounter Details Date Type Department Care Team ([facility] st Contact Info) Description 07/31/2016 10:00 EST Office Visit [facility] Adult Primary Care - [address] [address] Unknown, Provider, Najma Main DO [address] [place] [address] Brittaney Gutiérrez MD PhD 111 [facility] 2 [place] [address] Anxiety (Primary Dx); Need for influenza vaccination; Psychophysiological insomnia; Screening for diabetes mellitus; Obesity, unspecified obesity severity, unspecified obesity type; Other fci (current) drug therapy Discharge Disposition: Auto Discharge Social History Tobacco [...] Sign Reading Time Taken Comments Blood Pressure 108/70 07/31/2016 0947 EST Pulse 60 07/31/2016 0947 EST Temperature 36.1 ??C (96.9 ??F) 07/31/2016 0947 EST Respiratory Rate 16 07/31/2016 0947 EST Oxygen Saturation - - Inhaled Oxygen Concentration - - Weight 158.3 kg (349 lb) 07/31/2016 0947 EST Height - - Body Mass Index 48.7 05/30/2016 0835 EDT documented in this encounter [...] No 07/31/2016 documented as of this encounter Discharge Diagnoses Diagnosis Z23 Encounter for immunization-Z23[ICD-10-CM] F41.9 Anxiety disorder, unspecified-F41.9[ICD-10-CM] F51.04 Psychophysiologic insomnia-F51.04[ICD-10-CM] Z13.1 Encounter for screening for diabetes mellitus-Z13.1[ICD-10-CM] E66.9 Obesity, unspecified-E66.9[ICD-10-CM] Z79.899 Other assistant terminal manager (current) drug therapy-Z79.899[ICD-10-CM] documented in this encounter Ordered Prescriptions Prescription Sig Dispensed Refills Start Date End Da te traZODone (DESYREL) 100 mg tabletIndications:Anxiety ,Psychophysiological insomnia Take 1 Tab by mouth at bedtime. 30 Tab 3 07/31/2016 10/11/2016 LORazepam (ATIVAN) 1 mg tabletIndications:Anxiety Take 0.5 Tabs by mouth at bedtime as needed for up to 30 days for Anxiety. Daily Max: 0.5 mg 15 Tab 07/31/2016 09/14/2016 ARIPiprazole (ABILIFY) 5 mg tabletIndications:Anxiety Take 1 Tab by mouth daily. 21 Tab 3 07/31/2016 10/29/2016 documented in this encounter Discharge Disposition Disposition Code Departure Means Destination Auto Discharge documented in this encounter Progress Notes * Brittaney Gutiérrez MD PhD - 07/31/2016 1000 EST Subjective: Patient ID: Venkata Zhao is an 31 y.o. male. Chief Complaint Patient presents with ??? Medication Management HPI Venkata returns for management of his anxiety. He has been doing well since our last visit and feelsthat his symptoms are well controlled. He denies SI, HI, and delusions/hallucinations. He has been dealing well with stress; he says that his girlfriend's father recently visited and that he managed by going out to eat and sharing meals together. He is currently taking abilify 5 mg daily, [id number] mg qHS and ativan 0.5 mg qHS for sleep. He will occasionally take ativan if he is in a stressful situation to help his anxiety. 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 He has also been looking for a new therapist but would like to find someone outside [facility] for this. He continues to work on losing weight and has been going to the gym almost daily, using the elliptical machine or treadmill. Patient Active Problem List Diagnosis ??? Allergic rhinitis ??? Scalp cyst ??? NIA (obstructive sleep apnea) ??? Morbid obesity ??? Psychotic episode ??? Eczema ??? Primary insomnia ??? Anxiety Outpatient Prescriptions Marked as Taking for the 07/31/16 encounter (Office Visit) with Brittaney Gutiérrez MD,PHD Medication Sig Dispense Refill ??? ARIPiprazole (ABILIFY) 5 mg tablet Take 1 Tab by mouth daily. 21 Tab 3 ??? [DISCONTINUED] ARIPiprazole (ABILIFY) 5 mg tablet Take 1 Tab by mouth daily. 21 Tab 0 ??? LORazepam (ATIVAN) 1 mg tablet Take 0.5 Tabs by mouth at bedtime as needed for up to 30 days for Anxiety. Daily Max: 0.5 mg 15 Tab 0 ??? [DISCONTINUED] LORazepam (ATIVAN) 1 mg tablet Take 1 Tab by mouth at bedtime as needed for up to 14 days for Anxiety. Daily Max: 1 mg 14 Tab 0 ??? therapeutic hand-body (EUCERIN ORIGINAL) lotion Apply topically as needed. ??? traZODone (DESYREL) 100 mg tablet Take 1 Tab by mouth at bedtime. 30 Tab 3 ??? [DISCONTINUED] traZODone (DESYREL) 100 mg tablet Take 1 Tab by mouth at bedtime. 14 Tab 2 Review of Systems Constitutional: Positive for weight loss (has been working on losing weight). Negative for chills, fever and malaise/fatigue. Eyes: Negative for blurred vision. Respiratory: Negative for cough and shortness of breath. Gastrointestinal: Negative for diarrhea, nausea and vomiting. Skin: Negative for rash. Psychiatric/Behavioral: Negative for depression, hallucinations, substance abuse and suicidal ideas. The patient is nervous/anxious (improved) and has insomnia (imoproved). Specifically denies paranoia, visual or auditory hallucinations - See HPI Objective: Visit Vitals ??? BP 108/70 ??? Pulse 60 ??? Temp 36.1 ??C (96.9 ??F) (Tympanic) ??? Resp 16 ??? Wt (!) 158.3 kg (349 lb) ??? BMI 48.7 kg/m2 Physical Exam Constitutional: He is oriented to person, place, and time. He appears well- developed and well-nourished. HENT: Mouth/Throat: Mucous membranes are moist. Eyes: Conjunctivae and EOM are normal. Cardiovascular: Normal rate and regular rhythm. No murmur heard. Pulmonary/Chest: Effort normal and breath sounds normal. No respiratory distress. Neurological: He is alert and oriented to person, place, and time. Skin: Skin is warm and dry. No rash noted. Psychiatric: Venkata shows a full and appropriate range of emotion with good eye contact and insight today. He responses are still somewhat latent, but appropriate. Assessment / Plan: Venkata continues to do well on his current dose of abilify. We talked about ideally being able to manage his symptoms without the use of a benzodiazepine and he is agreeable to trying this in the future. For now he feels that the ativan is best at controlling his symptoms. We Will plan on writing for 0.5 mg Ativan at night, continue his current dose of trazadone and abilify. We again talked aboutthe side effects (most notably weight gain and metabolic syndrome) and I asked him to have a hemoglobin A1c as well as lipids drawn today as a baseline, will rapp to repeat in 2 months and then yearly. Continued focused efforts to exercise and eat healthy were supported and encouraged. His weight has continued to come off slowly. In discussion with Dr. Doran we will recommend he contact [facility] or [facility] for counselors in the community. Venkata was seen today for medication management. Diagnoses and all orders for this visit: Anxiety - ARIPiprazole (ABILIFY) 5 mg tablet; Take 1 Tab by mouth daily. - LORazepam (ATIVAN) 1 mg tablet; Take 0.5 Tabs by mouth at bedtime as needed for up to 30 days forAnxiety. Daily Max: 0.5 mg - traZODone (DESYREL) 100 mg tablet; Take 1 Tab by mouth at bedtime. Need for influenza vaccination - EXP103 - Influenza Vaccine =>3YO Quad Preservative Free IM Psychophysiological insomnia - traZODone (DESYREL) 100 mg tablet; Take 1 Tab by mouth at bedtime. Screening for diabetes mellitus - Hemoglobin A1c; Future Obesity, unspecified obesity severity, unspecified obesity type - Lipid Profile (Includes Cholesterol, Triglycerides, HDL, LDL); Future Other fci (current) drug therapy - Hemoglobin A1c; Future - Lipid Profile (Includes Cholesterol, Triglycerides, HDL, LDL); Future This case was staffed with Dr. Main. Brittaney Gutiérrez MD,PHD 07/31/2016 12:55 * Najma Main DO - 07/31/2016 1000 EST I discussed the the patient with the resident at the time of the patient's visit. I agree with the findings and plan of care documented in the resident's note. 13:39 08/01/2016 Najma Main DO documented in this encounter Plan of Treatment Scheduled Referrals Name Type Priority Associated Diagnoses Order Schedule AMB CONS/FOLLOW UP ADULT PSYCHIATRY CLINIC Outpatient Referral Routine Anxiety Psychophysiological insomnia Other assistant terminal manager (current) drug therapy Ordered: 07/31/2016 documented as of this encounter Goals Goal [...] more about your health please visit: [email or web address]/medcenter/Pages/Wellness-Resources/Bzfacuxgq-Xnkuhb-Za sourc e-Center.aspx documented as of this encounter Results * LIPID PROFILE (INCLUDES CHOLESTEROL, TRIGLYCERIDES, HDL, LDL) (07/31/2016 11:17 EST) Cholesterol 147 mg/dl 07/31/2016 15:17 EST [facility] Comment: Desirable:<200 Borderline High:200-239 High:>tv=434 Triglycerides 131 mg/dl 07/31/2016 15:17 [facility] Comment: Normal:<150 Borderline High:150-199 High:200-499 Very High:>bn=154 HDL 44 mg/dl 07/31/2016 15:17 [facility] Comment: Low:<40 Normal:40-60 Desirable: >60 LDL, Calculated 77 mg/dl 6 15:17 [facility] Comment: Optimal:<100 Near Optimal:100-129 Borderline High:130-159 High:160-189 Very High:>hh=065 Chol/HDL Ratio 3.3 07/31/2016 15:17 [facility] Fasting? No 07/31/2016 11:18 [facility] Non HDL Cholesterol 103 mg/dl 07/31/2016 15:17 [facility] Comment: Desirable:<130 Borderline:130-159 High: 160-189 Very High: >yw=288 Blood specimen (specimen) BLOOD SPECIMEN / Unknown 07/31/2016 11:17 EST 07/31/2016 13:38 EST Najma Main DO CHEMISTRY & BLOOD G ORDERABLES Performing Organization Address [facility] de Phone Number [facility] [address] [place] [address] * HEMOGLOBIN A1C (07/31/2016 11:17 EST) Hemoglobin A1C 5.0 % 07/31/2016 15:15 [facility] Comment: Shortened red blood cell survival will decrease Hemoglobin A1C values. Reference Range: <5.7% Normal 5.7-6.4% Increased risk for diabetes =>6.5% Diagnostic for diabetes (if confirmed) The A1c goal for non adults in general is <7%. The A1c goal for selected patients may be significantly lower than 7% if this can be achieved without significant hypoglycemia or other adverse effects of treatment. Est Avg Glucose 97 mg/dl 6 15:15 [facility] Comment: eAG represents the A1c result expressed as average glucose in mg/dl. Blood specimen (specimen) BLOOD SPECIMEN / Unknown 07/31/2016 11:17 EST 07/31/2016 13:38 EST Najma Main DO CHEMISTRY & BLOOD G ORDERABLES Performing Organization Address [facility] Co de Phone Number [facility] [address] [place] [address] documented in this encounter Visit Diagnoses Diagnosis Anxiety- Primary Anxiety state, unspecified Need for influenza vaccination Need for prophylactic vaccination and inoculation against influenza Psychophysiological insomnia Persistent disorder of initiating or maintaining sleep Screening for diabetes mellitus Obesity, unspecified obesity severity, unspecified obesity type Other fci (current) drug therapy documented in this encounter Discontinued Medications Medication Sig Discontinue Reason Start Date End Da te ARIPiprazole (ABILIFY) 5 mg tablet Take 1 Tab by mouth daily. Reorder 07/18/2016 07/31/2016 LORazepam (ATIVAN) 1 mg tablet Take 1 Tab by mouth at bedtime as needed for up to 14 days for Anxiety. Daily Max: 1 mg Reorder 07/20/2016 07/31/2016 traZODone (DESYREL) 100 mg tabletIndications:Anxiet y,Psychophysiological insomnia Take 1 Tab by mouth at bedtime. Reorder 07/18/2016 07/31/2016 documented as of this encounter Orders Immunization/Injection Count Last Ordered Date First Ordered Date INFLUENZA VACCINE =>3YO QUAD PRESERVATIVE FREE IM 1 07/31/2016 documented in this encounter Care Teams Branch Customer Service Representative Relationship Specialty Start Date End Date Tremaine Shankar MD 1 [facility] [address] [place] [address] PCP - General 10/18/15 06/21/18 Brittaney Gutiérrez MD PhD 111 [facility] [address] [place] [address] PCP - Alternate 10/21/15 02/12/18 documented as of this encounter
--- OUTSIDE RECORDS SUMMARY | 2024-06-16 15:26 | XMS_ITS | Encounter Summary ---
Author Organization [facility] Address [address] [place] [address] Care Team Providers Care Handle Lathe Operator Name Role Phone Tremaine Shankar MD Primary Care Provider + Brittaney Gutiérrez MD PhD Unavailable [phone] Reason for Visit * Reason Comments Cough since weekend. Pain in chest when coughing Encounter Details Date Type Department Care Team (Late st Contact Info) Description 03/26/2017 9:30 EDT Office Visit [facility] Adult Primary Care [address] [id number] Unknown, ProviderMD Elizabeth Duong MD Pandhair, Nehpreet, MD [address] [place] [address] Tremaine Shankar MD [address] [address] Viral URI with cough (Primary Dx) Discharge [...] Sign Reading Time Taken Comments Blood Pressure 134/86 03/26/2017 0939 EDT Pulse 80 03/26/2017 0939 EDT Temperature 36.1 ??C (97 ??F) 03/26/2017 0939 EDT Respiratory Rate 12 03/26/2017 0939 EDT Oxygen Saturation - - Inhaled Oxygen Concentration - - Weight 172.4 kg (380 lb) 03/26/2017 0939 EDT Height - - Body Mass Index 53.03 10/11/2016 1432 EST documented in this encounter [...] Dispensed Refills Start Date End Da te oseltamivir (TAMIFLU) 75 mg capsule Take 1 Cap by mouth 2 times daily for 5 days. 10 Cap 03/26/2017 03/31/2017 documented in this encounter Discharge Disposition Disposition Code Departure Means Destination Auto Discharge documented in this encounter Progress Notes * Anat Cunningham MD - 03/26/2017 0930 EDT Subjective: Patient ID: Venkata Zhao is an 31 y.o. male. Chief Complaint Patient presents with ??? Cough since weekend. Pain in chest when coughing HPI Mr. Hastings was seen today for Viral URI. He says his symptoms started mostly Sunday with a cough and running nose. He had some sore throat around the same time. He also noticed chest congestion, bodyaches and pains starting around the same time. He had been taking mucinex for his cough but had a bad coughing spell last night and couldn't sleep due to it. He has not noticed any fevers, no one around him was sick with similar illness. He says he works at the [employer] and does comes across alot of people. He has not had any recent travels. He has had no nausea, no vomiting. He says his appetite has been good. He has had minimal phlegm with the cough. He has no sob, no fevers or chills. He has no sinus pain or pressure, headaches, earache. Patient Active Problem List Diagnosis ??? Allergic rhinitis ??? Scalp cyst ??? NIA (obstructive sleep apnea) ??? Morbid obesity ??? Psychotic episode ??? Eczema ??? Primary insomnia ??? Anxiety Outpatient Prescriptions Marked as Taking for the 03/26/17 encounter (Office Visit) with Anat Cunningham MD Medication Sig Dispense Refill ??? ARIPiprazole (ABILIFY) [...] by mouth at bedtime. 45 Tab 3 ROS - See HPI Objective: BP 134/86 Pulse 80 Temp 36.1 ??C (97 ??F) (Tympanic) Resp 12 Wt (!) 172.4 kg (380 lb) BMI53.03 kg/m2 Physical Exam Constitutional: He appears well-developed and well-nourished. No distress. HENT: Nose: Nose normal. No nasal discharge. Mouth/Throat: Mucous membranes are moist. Dentition is normal. No tonsillar exudate. Oropharynx is clear. Pharynx is normal. Neck: Normal range of motion. Neck supple. Cardiovascular: Normal rate and regular rhythm. Exam reveals no friction rub. No murmur heard. Pulmonary/Chest: Effort normal and breath sounds normal. No respiratory distress. He exhibits no tenderness. Abdominal: Soft. Bowel sounds are normal. He exhibits no distension. There is no tenderness. Skin: He is not diaphoretic. Assessment / Plan: Viral URI- Symptoms most consistent with viral infection which started on Sunday with cough, sore throat, body aches and pains. Will prescribe Tamiflu for 5 days . He will continue with symptomatic management. Will call with worsening symptoms or go to the ED if in case he develops worsening SOB, high grade fevers, vomiting. The patient was discussed with Dr. Duong. Anat Cunningham MD 03/26/2017 10:50 * Elizabeth Duong MD - 03/26/2017 0930 EDT ATTENDING ATTESTATION: I have discussed the patient with the resident at the time of the visit. I agree with the findings and the plan of care documented in the resident's note. Elizabeth Duong MD MPH [facility] Adult Primary Care - [place] 03/30/2017; 12:41 documented in this encounter Plan of Treatment [...] more about your health please visit: https://www.[email or web address]/medcenter/Pages/Wellness-Resources/Xxwcutlet-Mlxofd-Uq [facility] e-Center.aspx documented as of this encounter Visit Diagnoses Diagnosis Viral URI with cough- Primary Acute upper respiratory infections of unspecified site documented in this encounter Care Teams Handle Lathe Operator Relationship Specialty Start Date End Date Tremiane Shankar MD 1 [facility] 1 [place] [id number] PCP - General 10/18/15 06/21/18 Brittaney Gutiérrez MD PhD 111 [facility] 2 [place] [address] PCP - Alternate 10/21/15 02/12/18 documented as of this encounter
--- OUTSIDE RECORDS SUMMARY | 2024-06-16 15:26 | XMS_ITS | Encounter Summary ---
Author Organization [facility] Address [address] [place] [address] Care Team Providers Care Rougher Helper Name Role Phone Tremaine Shankar MD Primary Care Provider + Brittaney Gutiérrez MD PhD Unavailable [phone] Reason for Visit * Reason Comments Medication Management Encounter Details Date Type Department Care Team (Late st Contact Info) Description 10/11/2016 14:30 EST Office Visit [facility] - [address] [id number] Unknown, Provider, Tremaine Shankar MD [address] [phone] Brittaney Gutiérrez MD PhD [address] [phone] Anxiety (Primary Dx); Psychophysiological insomnia; Medication adverse effect, initial encounter; Morbid (severe) obesity due to excess calories Discharge Disposition: Auto Discharge Social History Tobacco [...] Sign Reading Time Taken Comments Blood Pressure 120/70 10/11/2016 1432 EST Pulse 76 10/11/2016 1432 EST Temperature 36.6 ??C (97.9 ??F) 10/11/2016 1432 EST Respiratory Rate 16 10/11/2016 1432 EST Oxygen Saturation - - Inhaled Oxygen Concentration - - Weight 161.5 kg (356 lb) 10/11/2016 1432 EST Height 180.3 cm (5' 10.98) 10/11/2016 1432 EST Body Mass Index 49.68 10/11/2016 1432 EST documented in this encounter [...] F41.9 Anxiety disorder, unspecified-F41.9[ICD-10-CM] F51.04 Psychophysiologic insomnia-F51.04[ICD-10-CM] T88.7XXA Unspecified adverse effect of drug or medicament, initial encounter-T88.7XXA[ICD-10-CM] E66.01 Morbid (severe) obesity due to excess calories-E66.01[ICD-10-CM] documented in this encounter Ordered Prescriptions Prescription Sig Dispensed Refills Start Date End Da te traZODone (DESYREL) 100 mg tabletIndications:Anxiety ,Psychophysiological insomnia Take 1.5 Tabs by mouth at bedtime. 45 Tab 3 10/11/2016 01/23/2017 LORazepam (ATIVAN) 1 mg tabletIndications:Anxiety Take 0.5 Tabs by mouth as needed for Anxiety (limit use to acute anxiety attcks). Daily Max: 1 mg 10 Tab 10/11/2016 01/23/2017 documented in this encounter Discharge Disposition Disposition Code Departure Means Destination Auto Discharge documented in this encounter Progress Notes * Brittaney Gutiérrez MD PhD - 10/11/2016 1430 EST Subjective: Patient ID: Venkata Zhao is an 31 y.o. male. Chief Complaint Patient presents with ??? Medication Management HPI Venkata comes in in follow-up of his psychiatric conditions, obesity, and anxiety. He has been doingwell and all of his prescribed medications. He still has occasional difficulty falling asleep. He ran out of his lorazepam which she was taking half a tablet at night for sleep and took an extra doseof trazodone with good effect. He has been wearing his CPAP. For the most part his anxiety has beenwell controlled, and he denies any visual or auditory hallucinations. He has not yet connected witha therapist at the [facility] as we discussed at his last visit. He denies any nausea, vomiting, dyskinetic movements. Venkata also recently started a new job with from [employer]. 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 He saysthat he got inadequate training for this and feels that it has been stressful for that reason. He again says that he is probably going to quit this job soon and try to find another [employer] position. He feels that he has gained almost 20 pounds over the holidays. He had decreased his exercise and was very liberal in his diet over and . He says that his weight topped out at about 368 pounds, and he has seen it come down again now that he is after the holidays and getting backto the gym. At his last visit we attested a lipid panel as he just started Abilify. Cholesterol is 147 triglycerides 131 and HDL 44 LDL 77. Hemoglobin A1c was 5. Patient Active Problem List Diagnosis ??? Allergic rhinitis ??? Scalp cyst ??? NIA (obstructive sleep apnea) ??? Morbid obesity ??? Psychotic episode ??? Eczema ??? Primary insomnia ??? Anxiety Outpatient Prescriptions Marked as Taking for the 10/11/16 encounter (Office Visit) with Brittaney Gutiérrez MD,PHD Medication Sig Dispense Refill ??? ARIPiprazole (ABILIFY) 5 mg tablet Take 1 Tab by mouth daily. 21 Tab 3 ??? LORazepam (ATIVAN) 1 mg tablet Take 0.5 Tabs by mouth as needed for Anxiety (limit use to acuteanxiety attcks). Daily Max: 1 mg 10 Tab 0 ??? [DISCONTINUED] LORazepam (ATIVAN) 1 mg tablet Take 0.5 Tabs by mouth at bedtime as needed for Anxiety. Daily Max: 0.5 mg 5 Tab 0 ??? melatonin 3 mg tablet [...] by mouth at bedtime. 30 Tab 3 Review of Systems Constitutional: Negative for chills, fever and weight loss (has re-gained about 20 pounds since hislast visit ). Respiratory: Negative for cough and shortness of breath. Cardiovascular: Negative for chest pain, palpitations and leg swelling. Gastrointestinal: Negative for abdominal pain, diarrhea, nausea and vomiting. Genitourinary: Negative for dysuria, frequency and hematuria. Skin: Negative for rash. Neurological: Negative for dizziness, tingling, sensory change, focal weakness, seizures and headaches. Psychiatric/Behavioral: Negative for depression. The patient is nervous/anxious and has insomnia. - See HPI Objective: Visit Vitals ??? BP 120/70 (BP Cuff Location: Left arm, Patient Position: Sitting, BP Cuff Sizes: Adult, large) ??? Pulse 76 ??? Temp 36.6 ??C (97.9 ??F) (Tympanic) ??? Resp 16 ??? Ht 180.3 cm (70.98) ??? Wt (!) 161.5 kg (356 lb) ??? BMI 49.68 kg/m2 Physical Exam Constitutional: He appears well-developed and well-nourished. Obese HENT: Mouth/Throat: Mucous membranes are moist. Oropharynx is clear. Eyes: Conjunctivae and EOM are normal. Cardiovascular: Normal rate and regular rhythm. Exam reveals distant heart sounds. No murmur heard. Pulmonary/Chest: Breath sounds normal. Abdominal: Soft. Bowel sounds are normal. He exhibits no distension. There is no tenderness. Musculoskeletal: He exhibits no edema. Psychiatric: He has a normal mood and affect. His behavior is normal. Judgment and thought content normal. Venkata's eye contact and range of affect were again improved today. Assessment / Plan: Venkata seems to be doing well on his current dosages of medications. We discussed again that benzodiazepines are not ideally used his sleep aid or for long periods. He did express some frustration inthat his current regimen seems to be working for him and he did not like to change things that he felt were optimized. He was agreeable to attempting to cut out the benzos. With that in mind we have increased his trazodone for sleep at night, and decreased his Ativan to awhen necessary dose should he feel that he is having acute anxiety or panic attack. I will give him10 tablets for the next month and see him again in 5 weeks. We will also repeat his lipids as Abilify can cause hypercholesterolemia. If these are normal we will space out his revisits. If his mood, insomnia, and lack of side effects from his medications remain stable next month we will likely be able to spread out until 3 months. I did strongly encourage him to acquire a therapist in the community again this visit. Venkata was seen today for medication management. Diagnoses and all orders for this visit: Anxiety - LORazepam (ATIVAN) 1 mg tablet; Take 0.5 Tabs by mouth as needed for Anxiety (limit use to acute anxiety attcks). Daily Max: 1 mg - traZODone (DESYREL) 100 mg tablet; Take 1.5 Tabs by mouth at bedtime. Psychophysiological insomnia - traZODone (DESYREL) 100 mg tablet; Take 1.5 Tabs by mouth at bedtime. Medication adverse effect, initial encounter - Lipid Profile (Includes Cholesterol, Triglycerides, HDL, LDL); Future Morbid (severe) obesity due to excess calories - Lipid Profile (Includes Cholesterol, Triglycerides, HDL, LDL); Future This patient was staffed with Dr. Shankar. He will return to see me in clinic in 5 weeks. Brittaney Gutiérrez MD,PHD 10/11/2016 16:05 * Tremaine Shankar MD - 10/11/2016 1430 EST Attestation statement: I discussed the patient with [...] learn more about your health please visit: [email or web address] documented as of this encounter Results * LIPID PROFILE (INCLUDES CHOLESTEROL, TRIGLYCERIDES, HDL, LDL) (10/13/2016 8:59 EST) Cholesterol 138 mg/dl 10/13/2016 10:59 [facility] Comment: Desirable:<200 Borderline High:200-239 High:>qi=087 Triglycerides 75 mg/dl 10/13/2016 10:59 [facility] Comment: Normal:<150 Borderline High:150-199 High:200-499 Very High:>kk=028 HDL 50 mg/dl 10/13/2016 10:59 [facility] Comment: Low:<40 Normal:40-60 Desirable: >60 LDL, Calculated 73 mg/dl 7 10:59 [facility] Comment: Optimal:<100 Near Optimal:100-129 Borderline High:130-159 High:160-189 Very High:>el=768 Chol/HDL Ratio 2.8 10/13/2016 10:59 [facility] Fasting? YES 10/13/2016 9:00 [facility] Non HDL Cholesterol 88 mg/dl 10/13/2016 10:59 [facility] Comment: Desirable:<130 Borderline:130-159 High: 160-189 Very High: >rq=111 Blood specimen (specimen) BLOOD SPECIMEN / Unknown 10/13/2016 8:59 EST 10/13/2016 10:24 EST Tremaine Shankar MD CHEMISTRY & BLOO D GAS ORDERABLES [facility] [address] [place] [address] documented in this encounter Visit Diagnoses Diagnosis Anxiety- Primary Anxiety state, unspecified Psychophysiological insomnia Persistent disorder of initiating or maintaining sleep Medication adverse effect, initial encounter Morbid (severe) obesity due to excess calories documented in this encounter Discontinued Medications Medication Sig Discontinue Reason Start Date End Da te LORazepam (ATIVAN) 1 mg tabletIndications:Anxie ty Take 0.5 Tabs by mouth at bedtime as needed for Anxiety. Daily Max: 0.5 mg Reorder 10/11/2016 10/11/2016 traZODone (DESYREL) 100 mg tabletIndications:Anxie ty,Psychophysiological insomnia Take 1 Tab by mouth at bedtime. Reorder 07/31/2016 10/11/2016 clotrimazole (LOTRIMIN) 1 % creamIndications:Penile ulcer Apply to affected area twice daily Allergic reaction 10/29/2015 10/11/2016 documented as of this encounter Care Teams Rougher Helper Relationship Specialty Start Date End Date Tremaine Shankar MD 1 [facility] [address] [place] [phone] PCP - General 10/18/15 06/21/18 Brittaney Gutiérrez MD PhD [address] [facility] [address] [place] [phone] PCP - Alternate 10/21/15 02/12/18 documented as of this encounter
--- OUTSIDE RECORDS SUMMARY | 2024-06-16 15:26 | XMS_ITS | Encounter Summary ---
Author Organization [facility] Address [address] [place] [address] Care Team Providers Care Stars Analytical Lead Name Role Phone Tremaine Shankar MD Primary Care Provider + Brittaney Gutiérrez MD PhD Unavailable [phone] Reason for Visit * Reason Comments Anxiety Encounter Details Date Type Department Care Team (Late st Contact Info) Description 06/20/2016 13:00 EDT Office Visit [facility] [address] [id number] Unknown, Provider, Amilcar Mcdainels MD [address] [facility], [address] [place] [id number] Katrina Doran MD Anxiety (Primary Dx) Discharge Disposition: Auto Discharge [...] Sign Reading Time Taken Comments Blood Pressure 112/80 06/20/2016 1259 EDT Pulse 80 06/20/2016 1259 EDT Temperature 36.4 ??C (97.6 ??F) 06/20/2016 1259 EDT Respiratory Rate 14 06/20/2016 1259 EDT Oxygen Saturation - - Inhaled Oxygen [...] this encounter Patient Instructions * Patient Instructions* Katrina Doran MD - 06/20/2016 13:45 EDT Per note by Magali Valverde FNP: Please call Dr. Holley at ([facility]) He is a psychologist and I recommend that you see him for counseling about your anxiety and insomnia. Medications: Start Abilify (aripiprazole) 5 mg at bedtime documented in this encounter Ordered Prescriptions Prescription Sig Dispensed Refills Start Date End Da te ARIPiprazole (ABILIFY) 5 mg tablet Take 1 Tab by mouth daily. 7 Tab 06/20/2016 06/26/2016 documented in this encounter Discharge Disposition Disposition Code Departure Means Destination Auto Discharge documented in this encounter Progress Notes * Katrina Doran MD - 06/20/2016 1451 EDT Psychiatry Outpatient Consultation Venkata Zhao is a 31 y.o. L[employer]OGRAPHIC [employer] who presents at the request of his personal physician, Dr. Brittaney Gonzalez, for evaluation of anxiety and insomnia. History of Present Illness: Mr. 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 Mr. Zhao struggles to provide some history today, and clearly has difficulty expressing some of his inner processes due to anxiety. 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 He reports ongoing anxiety, which has fluctuated throughout his life. He is unsure when his anxiety started, but notes a stressful upbringing which has contributed to his experience of anxiety. He reports some intrusive thoughts surrounding childhood neglect. He endorses hypervigilance, but denies nightmares or avoidance symptoms. He reports that he feels anxious about everything, and he often overthinks things leading to feeling overwhelmed. He expresses feeling anxious about a variety of factors, including the election, the possibility he may (though he is not sure what he would from), and being self-centered. Heexpresses feeling guilty about the possibility he has not been kind enough to his family, but does not seem to have grounds for this excessive guilt (or at least he does not share specifics with me today). He also expresses worry about having a mental illness, and what his diagnosis may be. He alsoreports concern regarding feeling congested, and this may indicate an underlying infection in [facility]. Mr. Zhao also reports he sometimes has the fear he is being followed, and at times he is too scared to leave the house. I inquired regarding ideas of reference or thought broadcasting, and he denied these symptoms. He does admit to feeling freaked out when watching TV or listening to the radio because he easily feels anxious and overwhelmed. He reports ongoing difficulty falling asleep and staying asleep, with partial response from Trazodone 100mg and Lorazepam 1 mg QHS. Recent Psychiatric ROS: Mood: He endorses severe anxiety and some depression. He also endorses: reduced interest in activities, low energy, difficulty concentrating, decreased appetite, helplessness, and excessive guilt (surrounding the possibility that he may not have treated his family kindly enough). Hypo/fe:??denies any current symptoms of hypomania/fe. He endorses a 2 week period with decreased need for sleep without fatigue prior to his psychiatric hospitalizations in 2013. He is vague when asked regarding other symptoms of fe, but eludes to doing something he regrets (again, unclear if what he regrets actually happened as opposed to an obsessive or delusional belief, or at least an overvalued idea) Psychotic sx:?? Aud/vis hallucinations: denies Paranoia: as described above. Sometimes worries he is being followed. Anxiety:?? as described in HPI Panic:?? has periods of escalated anxiety, but denies other symptoms that would be consistent with panic attacks. PTSD: as above Phobias: various fears as described above OCD:??obsessional quality to some of his fears/beliefs. Denies preccupation with germs/cleanliness,or compulsive behaviors (i.e. counting, ordering, checking, or handwashing). Medical ROS: See [facility] - Mental Health Care Service Database in scanned documentsfor details A 14 point review of systems was completed. 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 If not listed, the other features were negative. Past Psychiatric History Outpatient treatment: previously saw a therapist and found this helpful. Primary provider has referred him to a community therapist (he has yet to connect with this referral) In September 2012, he was initially screened in the [facility] emergency room after co- workers at [employer] noted he was flat, unfocused, and unable to attend his duties. Per review of crisis evaluation document at that time, he expressed fears that he had been transferred (although his work reported he had not been transferred) and that he had an altercation at work (which again his sample preparation supervisor reported did not occur). Crisis documentation also notes that Mr. Zhao expressed concern that his mother was being followed by a psychopath. He also reportedly talked obscurely about beliefs that work was a game, brains are connected, and that he had seen connections through 'higher order thi nking.' He also expressed the paranoid belief that the [employer] was trying to control our minds. He denied suicidal or homicidal ideation at that time and was discharged with a diagnosis of anxiety. Discharge summaries from his two psychiatric admissions at [facility] are not availible, but Emergency Room Documentation was reviewed and indicated that Mr. Zhao was admitted in 09/2012 (after state troopers found [place] wandering [place] [address]) and again soon after in 10/2012 (at that time he called police in distress with the belief he had done cocaine, urine toxicology screen was negative. When police arrived to his home he was acting erratically, and he appeared disorganized and anxious on exam). It appears after his admission to [facility], treatment was started with Zyprexa 5 mg. He consequently stopped this medication a couple months after discharge because he did not want to continue taking it (unclear specifics). Medications:?? Patient denies former medication trials other than Zyprexa as above. He has recentlytried Benadryl (25-50 mg)and Melatonin (up to 10 mg) without benefit for insomnia. Trazodone and Lorazepam have been partially helpful for insomnia. Lorazepam has also been partially helpful for anxiety. History of suicide/self harm:?? denies Substance abuse History Caffeine: denies significant caffeine use. Alcohol: approximately 1 drink per week or less. Has a history of heavy drinking and DUI, completedCRASH program in 2006. Cannabis: denies currently, has history of heavy use in early Denies use of other illicit substances. Past Medical History Reviewed. History of NIA, using CPAP. Medications Current Outpatient Prescriptions Medication Sig Dispense Refill ??? ARIPiprazole (ABILIFY) 5 mg tablet Take 1 Tab by mouth daily. 7 Tab 0 ??? clotrimazole (LOTRIMIN) 1 % cream Apply to affected area twice daily (Patient not taking: Reported on 05/30/2016) 15 g 0 ??? diphenhydrAMINE (BENADRYL) 25 mg capsule Take 1-2 Caps by mouth at bedtime as needed for Sleep.(Patient not taking: Reported on 05/30/2016) ??? LORazepam (ATIVAN) 1 mg tablet Take 1 mg by mouth at bedtime as needed for Anxiety. ??? melatonin 3 mg tablet Take 1 [...] No current facility-administered medications for this visit. Allergies Allergen Reactions ??? Latex, Natural Rubber Family History Family History Family Problem Relation Name Age of Onset Comments Source as of 06/20/2016 Diabetes Maternal Grandmother Provider Schizophrenia Father Provider Mental Illness Sister Provider Substance Abuse Mother in remission Provider Family Status Relation Name Status Comments Sex as of 06/20/2016 Maternal Grandmother F Father M Sister F Mother F As above, father with schizophrenia. Mother reportedly admitted to [facility] when she was a teenager (for reasons unknown to Mr. Zhao) and struggled with polysubstance abuse. One sister with mental illness, was in and out of [facility] for anxiety and depression. Great Uncle attempted suicide. Social & Developmental History Grew up in [facility] [facility]. Reports he was concieved in a rehab facility, and does not have contact with his father (who has a diagnosis of schizophrenia). He reports feeling scared and alone throughout childhood due to neglect. He took charge of helping raise his two younger sisters given theneglectful environment at home. He denies a history of physical or sexual abuse. He reports struggling academically, complicated by anxiety when attending [employer] (he left after only 2semesters). He denies a history of academic problems or learning disabilities prior to college. 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 He currently lives with his girlfriend in a condo in [place]. Girlfriend is [facility] financially. Objective: Vitals: 06/20/16 1259 BP: 112/80 Pulse: 80 Resp: 14 Temp: 36.4 ??C (97.6 ??F) TempSrc: Tympanic Mental status exam:?? General: very heavyset man, dressed casually Orientation: Person, Time, Place and Situation Attention: some difficulty focusing on interview, asked to have questions repeated, seemed internally preoccupied/distracted by anxious thoughs Concentration: Serial sevens completed with 0 errors Appearance: Good attention to grooming and hygiene. No abnormal movements. Behavior: cooperative and poor eye contact. Often responds with vague answers, particularly pertaining to current psychiatric symptoms and prior psychiatric history. Often answered I don't know. When I asked if he was answering in this manner because he didn't remember or found it difficult to talk about, he responded: a little bit of both. Clearly anxious throughout the interview, and becameacutely distressed and tearful when discussing his understanding of his diagnosis and possibility of an antipsychotic trial. Speech: monotonous, regular rate and volume. Often displays latency before answering questions. Psychomotor Activity: Normal Mood: Anxious Affect: congruent with mood and blunted Thought process: brief, goal directed and tight associations Thought content: helplessness, excessive guilt, paranoid ideas and anxious ruminations (regarding avariety of themes, including: possibility of head infection, dying, and being self-centered) Perceptual Disturbances: no perceptual disturbances Impulses: appropriately resists or modulates impulses Insight: Fair, recognizes problem and need for help. Likely some denial about possible underlying primary thought disorder. Judgement: good Language: Normal Fund of Knowledge: field representative/health education of his education level Memory: see MOCA results below. Suicidal Ideation: expressed suicidal ideation, but did not report suicide intent or plan Routine Suicide Risk Assessment: Modifiable Risk Factors: Current suicidal ideation, Psychic distress/anxiety/pain, Vulnerability topainful affective states, Helplessness, Decreased self esteem, Loss of pleasure/interest, Decreasedconcentration, Insomia and Psychotic state Non-Modifiable Risk Factors: Male, , Unemployment, Mood disorder, Childhood abuse/neglect,Family history of attempted or completed suicide and Family history of psychiatric illness Protective Factors: Sense of responsibility to family and social supports/connections, Capacity forself-observation, Capacity to self-regulate, Capacity to establish therapeutic alliance and Willingness to comply with treatment plan Overall Risk Rating: Acute: Low Chronic: Low Comments on Assessment of Risk: Although patient reports suicidal ideation today, he clearly and convincingly denies intent or plan to act on suicidal thoughts. He has a supportive girlfriend and hasno previous history of suicide attempts. Cognition:?? Generally intact.?? MOCA 28 of 30 (see scanned documents). Lost one point for hands ofclock and one point for delayed recall. Visual Analog Scales:?? Depression intensity: 6 of 10 (10 = severe).?? Anxiety 9 of 10. Zung Self Rating Scale for Depression: 50 (mildly depressed range) Labs: Lab Results Component Value Date WBC 7.15 10/01/2012 HGB 15.9 10/01/2012 HCT 45.0 10/01/2012 MCV 84 10/01/2012 PLT 180 10/01/2012 Lab Results Component Value Date ALT 37 10/01/2012 AST 33 10/01/2012 ALKPHOS 73 10/01/2012 Lab Results Component Value Date TSH 0.65 10/01/2012 Radiology: Results MRI, MRA, and CT scan from 2013 reviewed. No significant intracranial abnormality noted in these reports, only a small (3 mm) increased signal focus in the left frontal lobe (non-specific finding which likely represented small perivasculars space per report). See scanned documents /external results. Assessment:?? Mr. Venkata Zhao is a 31 y.o. partnered (girlfriend) man, currently unemployed L[employer]ESS [employer]ER, with history of Psychosis NOS, morbid obesity, and obstructive sleep apnea (on CPAP) who recentlyquit his job in the context of anxiety, insomnia, and ruminative/paranoid thoughts. Per review of outside records (see scanned and external documents), previous considered diagnoses have included: schizoaffective disorder (per [facility] ED provider note) and schizophrenia (noted by his prior PCP). His ultimate diagnoses is unclear, although his symptom history and risk factors (family history, past heavy marijuana use, and possible prodromal phase in college) raise concern for schizoaffective disorder versus mild schizophrenia. Alternative diagnoses remain possible, such as severe anxiety with obsessive nature or complex PTSD. It is unclear whether manic elements were present during his psychiatric decompensation in 2013, although decreased need for sleep was symptom at that time. Review of records from his two psychiatric admissions in 2013 will be helpful for diagnostic clarification. Willfocus on addressing his distressing symptoms for now, as they are significantly impacting his adaptive functioning. Regardless of his ultimate diagnoses, his level of ruminative anxiety, emotional distress, and paranoid thoughts (i.e. being followed) could be collectively targeted with the addition of an antipsychotic medication. Although he showed initial resistance to trying antipsychotic medications (per noteby Dr. Gonzalez), he agreed to trial this medication with the understanding it can target anxiety/mood symptoms (in addition to psychotic symptoms). Ideally, if his symptoms are better controlled he could return to work (which could contribute to his long-term stability and prognosis). I would recommend against starting an SSRI at this time due to concerns for possible schizoaffective spectrum illness (? prior manic symptoms, although this remains entirely unclear). He appears to be utilizing Lorazepam for anxiety appropriately; however, this medication should only be used acutely and short term - particularly given his history of alcohol use disorder. We discussed the relative risks and benefits of various treatment options today, and all questions were answered to satisfaction. Diagnoses: 1) Unspecified anxiety disorder 2) Psychosis NOS (mild schizophrenia versus schizoaffective disorder versus obessessive ruminations) Recommendations: 1) Start Abilify 5 mg. Patient is aware of potential side-effects of this medication, including weight gain, metabolic syndrome, akathesia, and dystonia/involuntary muscle movements. Some people findthis medication activating, if this occurs or if he feels his sleep is disrupted in any way - he can switch to QAM dosing. I have provided a one week supply of this medication. Mr. Zhao can discuss potential dose increase with Dr. Gonzalez on 06/26 (if he is tolerating the medication). If a dose increase is clinically indicated, I would recommend increasing to 7.5 mg for three days then increasing to 10 mg. 2) If the above medication is ineffective or not tolerated, there are several other options which could be considered, including low dose risperidone or lurasidone (which tends to be more weight neutral compared to other second generation antipsychotics) 4) Agree with referral for individual therapy. 5) Venkata was advised to call or be seen right away if he is getting worse in any way, including: thoughts of suicide or worsening symptoms in the context of medication changes. 6) follow up with Dr. Gonzalez on 06/26 and follow-up with myself in 4 weeks. 7) Release of information was signed by Mr. Zhao today to obtain discharge summaries from his [facility] Inpatient psychiatric admissions, I will plan to review these data once recieved. Thank-you for consulting us in the care of Mr. Venkata Zhoa. Please feel free to contact me forfurther collaboration or with questions regarding this case. Katrina Doran MD, PhD 06/20/2016 17:46 Addendum: I saw and examined Mr Zhao with Dr Doran. I agree with the findings and recommendations documented above, which I edited minimally for clarity. Amilcar Mcdaniels MD, MPH documented in this encounter Plan of Treatment [...] about your health please visit: [email or web address] documented as of this encounter Visit Diagnoses Diagnosis Anxiety- Primary Anxiety state, unspecified documented in this encounter Historical Medications * This list may reflect changes made after this encounter. Medication Sig Dispensed Refills Start Date End Date LORazepam (ATIVAN) 1 mg tablet Take 1 mg by mouth at bedtime as needed for Anxiety. 07/18/2016 added in this encounter Care Teams Stars Analytical Lead Relationship Specialty Start Date End Date Tremaine Shankar MD [address] [place] [address] [address] [place] [address] PCP - General 10/18/15 06/21/18 Brittaney Gutiérrez MD PhD [address] [place] [address] [address] [place] [address] PCP - Alternate 10/21/15 02/12/18 documented as of this encounter
--- OUTSIDE RECORDS SUMMARY | 2024-06-16 15:26 | XMS_ITS | Encounter Summary ---
Author Organization [facility] Address [address] [place] [address] Care Team Providers Care Social Work Associate Name Role Phone Tremaine Shankar MD Primary Care Provider + Brittaney Gutiérrez MD PhD Unavailable [phone] Reason for Visit * Reason Comments Other Encounter Details Date Type Department Care Team (Late st Contact Info) Description 09/18/2016 Refill [facility] Adult Primary Care [address] [id number] Brittaney Gutiérrez MD PhD [address] [facility], [facility] 2 [place] [address] Other Social History Tobacco Use [...] No 07/31/2016 documented as of this encounter Ordered Prescriptions Prescription Sig Dispensed Refills Start Date End Da te melatonin 3 mg tablet TAKE ONE TABLET BY MOUTH EVERY NIGHT AT BEDTIME NEEDED FOR INSOMNIA 30 Tab 3 09/18/2016 04/01/2020 documented in this encounter Plan of Treatment [...] about your health please visit: [email or web address] documented as of this encounter Visit Diagnoses Not on filedocumented in this encounter Discontinued Medications Medication Sig Discontinue Reason Start Date End Da te melatonin 3 mg tablet Take 1 Tab by mouth at bedtime as needed (insomnia). Reorder 02/08/2016 09/18/2016 documented as of this encounter Care Teams Social Work Associate Relationship Specialty Start Date End Date Tremaine Shankar MD 1 [facility] 1 [place] [phone] PCP - General 10/18/15 06/21/18 Brittaney Gutiérrez MD PhD [address] [place] [address] 2 [place] [address] PCP - Alternate 10/21/15 02/12/18 documented as of this encounter
--- OUTSIDE RECORDS SUMMARY | 2024-06-16 15:26 | XMS_ITS | Encounter Summary ---
Author Organization [facility] Address [address] [place] [address] Care Team Providers Care Silver Spray Worker Name Role Phone Tremaine Shankar MD Primary Care Provider + Brittaney Gutiérrez MD PhD Unavailable [phone] Reason for Visit * Reason Onset Date Comments Medications Refill 10/11/2016 Encounter Details Date Type Department Care Team (Late st Contact Info) Description 10/11/2016 Refill [facility] Primary [facility] 1 [place], [place] [id number] Tremaine Shankar MD 1 [facility] Level 1 [place] [address] Medications Refill Social History Tobacco [...] Anxiety. Daily Max: 0.5 mg 5 Tab 10/11/2016 10/11/2016 documented in this encounter Miscellaneous Notes * Telephone Encounter - Huma Saucedo - 10/11/2016 1345 EST Lorazepam has been called in to [facility]. Patient is scheduled to be seen today at 2:[address] Gutirérez. * Telephone Encounter - Brittaney Gutiérrez MD PhD - 10/11/2016 1125 EST This is a repeat request from yesterday. Again, please schedule the patient to come in to see me this week to discuss this; I don't see that an appointment was been made. We are attempting to taper/discontinue this as a sleep aid. I will give him 5 tabs to get him through to when he can come in (please stress that I will be here only this week). * Telephone Encounter - Aide Villalba - 10/11/2016 1009 EST Medication(s) Requested: Lorazepam Preferred Pharmacy: [facility] Is patient out of medication? Yes Last Refill Date: 09.13.16 Last Visit Date with Ordering Provider: 08.10.16 Next Visit Date as it relates to the requested medication: Last Related Labs Date: Patient is out of medication and comes in asking for a refill today please. Aide Villalba 10/11/2016 10:09 documented in this encounter Plan of Treatment [...] about your health please visit: https://www.[facility].org/medcenter/Pages/Wellness-Resources/Czlkooghn-Phgaoz-Oo sourc e-Center.aspx documented as of this encounter Visit Diagnoses Diagnosis Anxiety- Primary Anxiety state, unspecified documented in this encounter Discontinued Medications Medication Sig Discontinue Reason Start Date End Da te LORazepam (ATIVAN) 1 mg tabletIndications:Anxiet y Take 0.5 Tabs by mouth at bedtime as needed for up to 30 days for Anxiety. Daily Max: 0.5 mg Reorder 09/14/2016 10/11/2016 documented as of this encounter Care Teams Silver Spray Worker Relationship Specialty Start Date End Date Tremaine Shankar MD 1 [facility] 1 [place] [address] PCP - General 10/18/15 06/21/18 Brittaney Gutiérrez MD PhD [address] [place] [address] 2 [place] [phone] PCP - Alternate 10/21/15 02/12/18 documented as of this encounter
--- OUTSIDE RECORDS SUMMARY | 2024-06-16 15:26 | XMS_ITS | Encounter Summary ---
Author Organization [facility] Address [address] [place] [address] Care Team Providers Care Sap Pi Architect Name Role Phone Tremaine Shankar MD Primary Care Provider + Brittaney Gutiérrez MD PhD Unavailable [phone] Reason for Referral * Consult (Routine/Next Available) - Closed Specialty Diagnoses / Procedures [facility] Referred To Contact Dermatology Diagnoses Rash of hands Tramaine Germain MD [address] [address] [place] [address] Dermatology [address] [place] [address] Referral ID Status Reason Start Date Expiration Date V isits Requested Visits Authorized [id number] Closed Specialty Services Required 02/08/2016 1 1 Question Answer Reason for Request: rash on hands Reason for Visit * Reason Comments Provider Referred derm Paperwork request Encounter Details Date Type Department Care Team (Late st Contact Info) Description 02/08/2016 16:10 EDT Office Visit [facility] Adult Primary Care - [address] [phone] Unknown, Provider, Brittaney Gutiérrez MD PhD 111 [facility] 2 [place] [phone] Tremaine Shankar MD 1 [facility] Level 1 [place] [address] Rash of hands (Primary Dx); Rash; Insomnia, unspecified type Social History Tobacco Use Types Packs/Day Years [...] Sign Reading Time Taken Comments Blood Pressure 110/60 02/08/2016 1614 EDT Pulse 60 02/08/2016 1614 EDT Temperature - - Respiratory Rate 20 02/08/2016 1614 EDT Oxygen Saturation - - Inhaled Oxygen Concentration - - Weight 160.4 kg (353 lb 9.6 oz) 02/08/2016 1614 EDT Height - - Body Mass Index 49.34 01/19/2016 0841 EDT documented in this encounter [...] No 01/19/2016 documented as of this encounter Ordered Prescriptions Prescription Sig Dispensed Refills Start Date End Da te melatonin 3 mg tablet Take 1 Tab by mouth at bedtime as needed (insomnia). 30 Tab 3 02/08/2016 09/18/2016 documented in this encounter Progress Notes * Lowell Chase MD - 02/15/2016 9661 EDT I discussed the patient with the resident at the time of the visit. I agree with the findings and the plan of care documented in their note. Any changes are made in BLUE. Lwoell Chase MD 02/15/2016 21:53 * Brittaney Gutiérrez MD PhD - 02/08/2016 7044 EDT Subjective: Patient ID: Venkata Zhao is an 30 y.o. male. Chief Complaint Patient presents with ??? Provider Referred derm ??? Paperwork request HPI Venkata comes in to follow-up on his medication management. 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 He is in the last week of this program andwill be ready and license to start working when he passes his exam at the end of the week. He has been using the melatonin to sleep at night and has not had to use any Benadryl to get to sleep. He notes that he is been sleeping well every night getting at least 7-8 hours of sleep. He reports that things are going well with his girlfriend and his living situation. With the help of [facility] and their boiler room operator, he has lost about 30 pounds in the last couple of months. He has more energy, and feels generally healthier. He reports no problems with his sleep apnea and has been using his CPAP at night. He does continue to have a rash on his hands bilaterally especially on the third and fourth digits. At times this can be papular or vesicular and the blisters may break open. He notes that he has been washing his hands constantly in his training and this has exacerbated the rash. I reviewed some of his prior medical history that was sent to me since his last visit. The only things that I have not received are notes from his inpatient psychiatric admission in [place] in 2012. He continues to have close follow-up at the [facility] and sees a therapist Trini there. He is still somewhat unclear whether he has an actual diagnosis of schizophrenia, but he does have a familyhistory stating that his father was diagnosed. He also says that his half sister has had severe mental health issues. Continues to report that he has no ongoing psychiatric symptoms and is doing welloff of all medications. Patient Active Problem List Diagnosis ??? Allergic rhinitis ??? Scalp cyst ??? NIA (obstructive sleep apnea) ??? Morbid obesity ??? Psychotic episode ??? Eczema Outpatient Prescriptions Marked as Taking for the 02/08/16 encounter (Office Visit) with Brittaney Gutiérrez MD,PHD Medication Sig Dispense Refill ??? clotrimazole (LOTRIMIN) 1 % cream Apply to affected area twice daily 15 g 0 ??? diphenhydrAMINE (BENADRYL) 25 mg capsule Take 1-2 Caps by mouth at bedtime as needed for Sleep. ??? melatonin 3 mg tablet Take 1 Tab by mouth at bedtime as needed (insomnia). 30 Tab 3 ??? [DISCONTINUED] melatonin 3 mg tablet Take 1 Tab by mouth at bedtime as needed (insomnia). 30 Tab 0 ROS - See HPI Objective: BP 110/60 mmHg Pulse 60 Resp 20 Wt 160.392 kg (353 lb 9.6 oz) Physical Exam Constitutional: He appears well-developed and well-nourished. HENT: Mouth/Throat: Oropharynx is clear and moist. Eyes: EOM are normal. Skin: Skin is warm. Rash (third and 4th digits on lateral surface; vesicular and papular/flaky. ) noted. Psychiatric: His speech is normal and behavior is normal. He is not actively hallucinating. Thoughtcontent is not paranoid and not delusional. He does not exhibit a depressed mood (seems more engaged wtih brighter affect today). He expresses no suicidal ideation. He is attentive. Assessment / Plan: Venkata is doing quite well since her last visit. He has lost a substantial amount of weight workingon his diet with the community health team. 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 His mood seems improved today, and he continues to have close follow-up with his mental health team at the [facility]. I did discuss that if he does indeed have a diagnosis of schizophrenia that often these conditions are treated long-term anti-psychotic medications. It may be worth him seeing a psychiatrist at some point in the future. However for now has mental health issues seem to be well under control and he isactively improving his lifestyle. His rash has been consistently coming and going over the last several years and has not been very responsive to the steroid creams that we have tried. He is going to continue to use lotions and creams to keep it moisturized, I do think it may be worth him seeing dermatology. I will have him follow up with another resident in 3 months while I am away on leave and see him in6 months for follow up after that. Venkata was seen today for provider referred and paperwork request. Diagnoses and all orders for this visit: Rash of hands Orders: - Amb Consult/Follow Up Dermatology Rash Insomnia, unspecified type Other orders - melatonin 3 mg tablet; Take 1 Tab by mouth at bedtime as needed (insomnia). Brittaney Gutiérrez MD,PHD 02/08/2016 17:05 documented in this encounter Plan of Treatment Scheduled Referrals Name Type Priority Associated Diagnoses Order Schedule AMB CONS/FOLLOW UP DERMATOLOGY Outpatient Referral Routine Rash Of Hands Ordered: 02/08/2016 documented as of this encounter Goals Goal [...] visit: https://www.[facility].org/medcenter/Pages/Wellness-Resources/Xmzjgghes-Kqhucl-Xt sourc e-Center.aspx documented as of this encounter Visit Diagnoses Diagnosis Rash of hands- Primary Rash and other nonspecific skin eruption Rash Rash and other nonspecific skin eruption Insomnia, unspecified type documented in this encounter Discontinued Medications Medication Sig Discontinue Reason Start Date End Da te melatonin 3 mg tablet Take 1 Tab by mouth at bedtime as needed (insomnia). Reorder 12/21/2015 02/08/2016 documented as of this encounter Care Teams Sap Pi Architect Relationship Specialty Start Date End Date Tremaine Shankar MD 1 [facility] 1 [place] [address] PCP - General 10/18/15 06/21/18 Brittaney Gutiérrez MD PhD [address] [place] [address], Level [address] [place] [address] PCP - Alternate 10/21/15 02/12/18 documented as of this encounter
--- OUTSIDE RECORDS SUMMARY | 2024-06-16 15:26 | XMS_ITS | Encounter Summary ---
Author Organization [facility] Address [address] [place] [address] Care Team Providers Care Hitch Technician Name Role Phone Tremaine Shankar MD Primary Care Provider + Brittaney Gutiérrez MD PhD Unavailable [phone] Reason for Visit * Reason Onset Date Comments Appointment Related 01/20/2016 Encounter Details Date Type Department Care Team (Late st Contact Info) Description 01/20/[address], [address] [place], [place] [address] Cht, Admin Appointment Related Social History Tobacco [...] encounter Miscellaneous Notes * Telephone Encounter - Richie Clark - 02/10/2016 1408 EDT Patient has not responded to several contact attempts to reschedule cancelled 04/27 visit w/ [facility]. Patient will be considered INACTIVE w/ [facility] at this time. Clinician to document in letter discovery manager. * Telephone Encounter - Richie Clark - 01/27/2016 1525 EDT No response to voicemail left to reschedule cancelled 01/18 visit w/ HC. Sent letter. * Telephone Encounter - Richie Clark - 01/20/2016 1031 EDT LVM for patient to reschedule cancelled 01/18 visit w/ [facility]. ----- Message from Candice Villalobos sent at 01/20/2016 8:17 EDT ----- Adult Primary Care [address] Total Time: 10 min Referral: none Follow [...] about your health please visit: https://www.[facility].org/medcenter/Pages/Wellness-Resources/Pomgwppvu-Xiydvu-Yv [facility] e-Center.aspx documented as of this encounter Visit Diagnoses Not on filedocumented in this encounter Care Teams Hitch Technician Relationship Specialty Start Date End Date Tremaine Shankar MD 1 [facility] 1 [place] [address] PCP - General 10/18/15 06/21/18 Brittaney Gutiérrez MD PhD 111 [facility], Level [address] [place] [phone] PCP - Alternate 10/21/15 02/12/18 documented as of this encounter
--- OUTSIDE RECORDS SUMMARY | 2024-06-16 15:26 | XMS_ITS | Encounter Summary ---
Author Organization [facility] Address [address] [place] [address] Care Team Providers Care Glove Machine Operator Name Role Phone Tremaine Shankar MD Primary Care Provider + Brittaney Gutiérrez MD PhD Unavailable [phone] Reason for Visit * Reason Comments Medication Questions Encounter Details Date Type Department Care Team (Late st Contact Info) Description 12/21/2015 14:00 EDT Office Visit [facility] Adult Primary Care - [address] [address] Unknown, Provider, Richie Hendrickson MD [address] [address] Daniel Caceres MD [address] [place] [phone] Primary insomnia (Primary Dx) Social History Tobacco Use Types [...] Reading Time Taken Comments Blood Pressure 134/86 12/21/2015 1345 EDT Pulse 96 12/21/2015 1345 EDT Temperature 36.7 ??C (98 ??F) 12/21/2015 1345 EDT Respiratory Rate 20 12/21/2015 1345 EDT Oxygen Saturation - - Inhaled Oxygen Concentration - - Weight 171.5 kg (378 lb) 12/21/2015 1345 EDT Height - - Body Mass Index 52.72 11/09/2015 1207 EST documented in this encounter Functional Status [...] encounter Discharge Diagnoses Diagnosis F51.01 Primary insomnia-F51.01[ICD-10-CM] documented in this encounter Patient Instructions * Patient Instructions* Daniel Caceres MD - 12/21/2015 14:30 EDT Images from the original note were not included. [facility] Patient Instructions Insomnia: Care Instructions Your [...] Where can you learn more? Go to [email or web address] or log into your [employer] account at [email or web address] Enter P513 in the search box to learn more about Insomnia: Care Instructions. ?? [id number] [employer] [facility] [employer]. Care instructions adapted under license by [facility] This care instruction is for use with your licensed healthcare professional. If you have questions about a medical condition or this instruction, always ask your healthcare professional. [employer] disclaims any warranty or liability for your use of this information. Content Version: 10.8.182920; Current as of: August 13, 2015 documented in this encounter Ordered Prescriptions Prescription Sig Dispensed Refills Start Date End Da te melatonin 3 mg tablet Take 1 Tab by mouth at bedtime as needed (insomnia). 30 Tab 0 12/21/2015 02/08/2016 documented in this encounter Progress Notes * Richie Hendrickson MD - 12/22/2015 0754 EDT Attestation statement: I discussed Mr. Zhao with Daniel Caceres MD at the time of his visit on12/21/2015. I agree with the plan of care documented in the resident's note. Richie Hendrickson MD [facility] cat tender * Daniel Caceres MD - 12/21/2015 1243 EDT S: 30 yo male who presents with complaint of insomnia and inquires about benzodiazepine use. Mr. Orozco is a relatively new pt to our clinic and sees Dr. Gutiérrez. He reports that he has had difficulty following asleep recently. He does stay asleep however. He reports decent sleep hygiene with dark room and sound machine. In the past he has dealt with psychiatric issues and believes at one time he was on lorazepam. He inquires if he could be on this again. He is seen at the [facility] for psychiatric issues. No F/C/S, N/V/D/C, CP, palpitations, SOB, cough, rhinorrhea, abd pain, melena/hematochezia, dysuria, focal numbness/weakness, change in vision, rash, bruise, headache, joint pain. 10 point of ROS performed. Negative unless otherwise noted above. Medications, PMH, SH, & FH reviewed. O: Filed Vitals: 12/21/15 1345 BP: 134/86 Pulse: 96 Temp: 36.7 ??C (98 ??F) TempSrc: Tympanic Resp: 20 Weight: 171.46 kg (378 lb) GEN: obese; otherwise well appearing PSYCH: wnl A/P: Insomnia. Prescribed melatonin and provided sleep hygiene handout. F/U in with Dr. Gutiérrez to discuss benzodiazepine use further. Discussed with Dr. Hendrickson. Daniel Caceres MD, PGY3 Internal Medicine [facility] documented in this encounter Plan of [...] your health please visit: https://www.[facility].org/medcenter/Pages/Wellness-Resources/Rgzxfrmor-Kiwvjj-De sourc e-Center.aspx documented as of this encounter Visit Diagnoses Diagnosis Primary insomnia- Primary Persistent disorder of initiating or maintaining sleep documented in this encounter Care Teams Glove Machine Operator Relationship Specialty Start Date End Date Tremaine Shankar MD [address] [place] [address] 1 [place] [address] PCP - General 10/18/15 06/21/18 Brittaney Gutiérrez MD PhD [address] [place] [address] 2 [place] [address] PCP - Alternate 10/21/15 02/12/18 documented as of this encounter
--- OUTSIDE RECORDS SUMMARY | 2024-06-16 15:26 | XMS_ITS | Encounter Summary ---
Author Organization [facility] Address [address] [place] [address] Care Team Providers Care Director Of Labor Relations Name Role Phone Tremaine Shankar MD Primary Care Provider + Brittaney Gutiérrez MD PhD Unavailable [phone] Reason for Visit * Reason Onset Date Comments Medications Refill 06/04/2017 Encounter Details Date Type Department Care Team (Late st Contact Info) Description 06/04/2017 Refill [facility] Adult Primary [facility] 1 [place], [place] [address] Tremaine Shankar MD 1 [facility] Level 1 [place] [address] Medications Refill Social History Tobacco [...] attcks). Daily Max: 1 mg 20 Tab 06/04/2017 04/22/2018 documented in this encounter Miscellaneous Notes * Telephone Encounter - Marisol Perla - 06/05/2017 0824 EDT Lorazepam phoned in [facility]. * Telephone Encounter - Chirag Simental MD - 06/04/2017 1733 EDT VPMS reviewed No concerns Visit with Brock soon refilled * Telephone Encounter - Huma Saucedo - 06/04/2017 1104 EDT Medication(s) Requested: Lorazepam Pharmacy: [facility] Last Refill Date: 01.23.17 Last Visit Date: 03.26.17 Next Visit Date: 07/16/2017 Is patient out of medication? Unknown Huma Saucedo 06/04/2017 11:04 documented in this encounter Plan of Treatment [...] about your health please visit: https://www.[facility].org/medcenter/Pages/Wellness-Resources/Zybydfgil-Noazqz-Lf [facility] e-Center.aspx documented as of this encounter Visit Diagnoses Diagnosis Anxiety- Primary Anxiety state, unspecified documented in this encounter Discontinued Medications Medication Sig Discontinue Reason Start Date End Da te LORazepam (ATIVAN) 1 mg tabletIndications:Anxiet y Take 0.5 Tabs by mouth as needed for Anxiety (limit use to acute anxiety attcks). Daily Max: 1 mg Reorder 01/23/2017 06/04/2017 documented as of this encounter Care Teams Director Of Labor Relations Relationship Specialty Start Date End Date Tremaine Shankar MD 1 [facility] 1 [place] [phone] PCP - General 10/18/15 06/21/18 Brittaney Gutiérrez MD PhD 111 [facility] 2 [place] [phone] PCP - Alternate 10/21/15 02/12/18 documented as of this encounter
--- OUTSIDE RECORDS SUMMARY | 2024-06-16 15:26 | XMS_ITS | Encounter Summary ---
Author Organization [facility] Address [address] [place] [address] Care Team Providers Care Automotive Manufacturer Name Role Phone Tremaine Shankar MD Primary Care Provider + Brittaney Gutiérrez MD PhD Unavailable [phone] Reason for Visit * Reason Comments Medication Management Encounter Details Date Type Department Care Team (Late st Contact Info) Description 01/05/2016 10:45 EDT Office Visit [facility] Adult Primary Care - [address] [id number] Unknown, Provider, Brittaney Gutiérrez MD PhD [address] [place] [address], [facility] [address] [place] [address] Visit for TB skin test (Primary Dx); Transient insomnia Social History Tobacco Use Types Packs/Day [...] Sign Reading Time Taken Comments Blood Pressure 112/70 01/05/2016 1106 EDT Pulse 78 01/05/2016 1106 EDT Temperature 35.9 ??C (96.7 ??F) 01/05/2016 1106 EDT Respiratory Rate 20 01/05/2016 1106 EDT Oxygen Saturation - - Inhaled Oxygen [...] as of this encounter Discharge Diagnoses Diagnosis F51.02 Adjustment insomnia-F51.02[ICD-10-CM] Z11.1 Encounter for screening for respiratory tuberculosis-Z11.1[ICD-10-CM] documented in this encounter Ordered Prescriptions Prescription Sig Dispensed Refills Start Date End Da te diphenhydrAMINE (BENADRYL) 25 mg capsule Take 1-2 Caps by mouth at bedtime as needed for Sleep. 01/05/2016 01/11/2018 documented in this encounter Progress Notes * Lowell Chase MD - 01/16/2016 2201 EDT I discussed the patient with the resident at the time of the visit. I agree with the findings and the plan of care documented in their note. Any changes are made in BLUE. Lowell Chase MD 01/16/2016 22:01 * Brittaney Gutiérrez MD PhD - 01/05/2016 1203 EDT Subjective: Patient ID: Venkata Zhao is an 30 y.o. male. Chief Complaint Patient presents with ??? Medication Management HPI Venkata returns for management of his insomnia. He has been trying the melatonin for about 9 the past 14 days, which she feels at first helped him but has not always helped. He says he has had one night where he was feeling anxious and had racing thoughts and could not to sleep until about 2 or 3. He says that once he falls asleep he is usually able to stay asleep for at least 7 hours. He has trouble describing his sleep latency. He has read and understands the sleep hygiene information he received his last visit and has been using this the best of his ability. He keeps his room quiet and dark. He has also been using his CPAP for sleep apnea and feels that this has greatly helped his daytime sleepiness and his ability to sleep through the night. He has been following up at the [facility] with a case management associate, Berto and the therapist, Trini. He is still not on any psychiatric medications. He would like to know if there are other medications he can try to help him sleep at night. Otherwise things have been going well in his home life, he is settled in with his girlfriend. He says they are one-year anniversary is coming up. 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 He has been having job interviews, and is now applying to an [employer] program. He needs to have a PPD placed and a letter stating that he is medically stable to enter this program. Patient Active Problem List Diagnosis ??? Allergic rhinitis ??? Scalp cyst ??? NIA (obstructive sleep apnea) ??? Morbid obesity ??? Psychotic episode Outpatient Prescriptions Marked as Taking for the 01/05/16 encounter (Office Visit) with Brittaney Gutiérrez MD,PHD Medication Sig Dispense Refill ??? clotrimazole (LOTRIMIN) 1 % cream Apply to affected area twice daily 15 g 0 ??? melatonin 3 mg tablet Take 1 Tab by mouth at bedtime as needed (insomnia). 30 Tab 0 Review of Systems Cardiovascular: Negative for chest pain, orthopnea and PND. Psychiatric/Behavioral: Positive for depression (he thinks there are some days when he does not feel like doing anything and stays in his room.). Negative for suicidal ideas, hallucinations and substance abuse. The patient is nervous/anxious (he describes some situational anxiety job interviews.). - See HPI Objective: BP 112/70 mmHg Pulse 78 Temp(Src) 35.9 ??C (96.7 ??F) (Tympanic) Resp 20 Physical Exam Constitutional: He appears well-developed and well-nourished. HENT: Head: Normocephalic and atraumatic. Eyes: EOM are normal. Skin: He is not diaphoretic. Psychiatric: His speech is normal and behavior is normal. Judgment and thought content normal. His mood appears not anxious. He does not exhibit a depressed mood. Affect is somewhat slowed, flat Assessment / Plan: Venkata comes in with continued episodes of insomnia, however he has been able to stay asleep once he is asleep. It sounds as if this is not an every night occurrence, and he is looking for an as needed medicine. He has been getting >7 hours of sleep for most of the past nights and describes onlyoccasional difficulty falling asleep. He has not yet tried any sedating antihistamines [id number]. We will start with Benadryl 25-50 mg daily at bedtime when necessary. If this does not help him we will consider using Ambien or other sleep aid. I will follow-up with his primary psychiatric providers to get records from his prior hospitalization as well as his recent treatment summary from his therapist to get a better sense of what his diagnosis was at the time of his hospitalization. Fornow we will hold off on any type of SSRI. This patient was discussed with Dr. Chase. Follow-up in 5 weeks. Venkata was seen today for medication management. Diagnoses and all orders for this visit: Visit for TB skin test Orders: - Place PPD (TB Skin Test) Transient insomnia Other orders - diphenhydrAMINE (BENADRYL) 25 mg capsule; Take 1-2 Caps by mouth at bedtime as needed for Sleep. Brittaney Gutiérrez MD,PHD 01/05/2016 12:03 * Vivien Piña - 01/05/2016 1147 EDT Patient here for PPD placement. PPD placed intradermally in left forearm. Observed for 10 minutes and no reactions noted. Instructed to return to office in 48-72 hours for PPD reading. Patient Education Topic: ppd Method: Verbal Taught to: Patient Barriers: None Outcomes: verbalized understanding I was supervised by Tremaine Shankar who was present and immediately available in the office suite. Vivien Piña 01/05/2016 11:47 documented in this encounter Plan of Treatment [...] learn more about your health please visit: https://www.[facility].org/medcenter/Pages/Wellness-Resources/Efekiybzp-Bjznuc-[facility] e-Center.aspx documented as of this encounter Procedures Procedure Name Priority Date/Time Associated Diagnosis Comments PLACE PPD Routine 01/07/2016 8:48 EDT Visit for TB skin test documented in this encounter Results * PLACE PPD (01/07/2016 8:48 EDT) TB Skin Test Negative POINT OF CARE Induration 0 POINT OF CARE 01/07/2016 8:48 EDT Tremaine Shankar MD POINT OF CARE TE ST ORDERABLES POINT OF CARE documented in this encounter Visit Diagnoses Diagnosis Visit for TB skin test- Primary Screening examination for pulmonary tuberculosis Transient insomnia Transient disorder of initiating or maintaining sleep documented in this encounter Care Teams Automotive Manufacturer Relationship Specialty Start Date End Date Tremaine Shankar MD [address] [place] [address] 1 [place] [phone] PCP - General 10/18/15 06/21/18 Brittaney Gutiérrez MD PhD [address] [place] [address] 2 [place] [address] PCP - Alternate 10/21/15 02/12/18 documented as of this encounter
--- OUTSIDE RECORDS SUMMARY | 2024-06-16 15:26 | XMS_ITS | Encounter Summary ---
Author Organization [facility] Address [address] [place] [address] Care Team Providers Care Technical Solution Architect Name Role Phone Tremaine Shankar MD Primary Care Provider + Brittaney Gutiérrez MD PhD Unavailable [phone] Reason for Visit * Reason Comments Obesity Encounter Details Date Type Department Care Team ([facility] Contact Info) Description 01/05/2016 Community Health Team [address], [address] [place], [place] [address] Candice Villalobos Social History Tobacco Use Types [...] No 12/21/2015 documented as of this encounter Progress Notes * Candice Villalobos - 01/05/2016 0955 EDT This HC sent check-in e-mail to pt around self-management goals. Requested reply. Adult Primary Care [place], [address] [place] [address] Total Time: 5 min Referral: none Follow up: Date: Tuesday, January 19, 2016 Time: 4:00 PM With: Candice Villalobos, Health Grass Cutter Location: Adult Primary Care [address] Status: Active documented in this encounter Plan [...] your health please visit: https://www.[facility].org/medcenter/Pages/Wellness-Resources/Qkljoinii-Apmzfx-Zx sourc e-Center.aspx documented as of this encounter Visit Diagnoses Not on filedocumented in this encounter Care Teams Technical Solution Architect Relationship Specialty Start Date End Date Tremaine Shankar MD 1 [facility] 1 [place] [address] PCP - General 10/18/15 06/21/18 Brittaney Gutiérrez MD PhD [address] [place] [address] 2 [place] [address] PCP - Alternate 10/21/15 02/12/18 documented as of this encounter
--- OUTSIDE RECORDS SUMMARY | 2024-06-16 15:26 | XMS_ITS | Encounter Summary ---
Author Organization [facility] Address [address] [place] [address] Care Team Providers Care Multi Purpose Machine Operator Name Role Phone Tremaine Shankar MD Primary Care Provider + Brittaney Gutiérrez MD PhD Unavailable [phone] Reason for Visit * Reason Comments Anxiety fu Medications Refill abilify and trazadon e refill pended Encounter Details Date Type Department Care Team (Late st Contact Info) Description 06/26/2016 16:00 EDT Office Visit [facility] - [place] [address] [place], [place] [id number] Unknown, Provider, Jyoti Morrison, FURNITURE TECHNICIAN [address] [place] [phone] Evon Morrison MD PhD [address] [place] [address] Brittaney Gutiérrez MD PhD [address] [facility] [address] [place] [address] Anxiety (Primary Dx); Psychophysiological insomnia Discharge Disposition: [...] Sign Reading Time Taken Comments Blood Pressure 126/84 06/26/2016 1601 EDT Pulse 76 06/26/2016 1601 EDT Temperature 36.6 ??C (97.9 ??F) 06/26/2016 1601 EDT Respiratory Rate 18 06/26/2016 1601 EDT Oxygen Saturation - - Inhaled Oxygen Concentration - - Weight 158.8 kg (350 lb) 06/26/2016 1601 EDT Height - - Body Mass Index 48.84 05/30/2016 0835 EDT documented in this encounter [...] this encounter Patient Instructions * Patient Instructions* Aide Aguilera - 06/26/2016 16:00 EDT Per note by Magali Valverde FNP: Please call Dr. Holley at ([place]) He is a psychologist and I recommend that you see him for counseling about your anxiety and insomnia. ?? documented in this encounter Ordered Prescriptions Prescription Sig Dispensed Refills Start Date End Da te ARIPiprazole (ABILIFY) 5 mg tablet Take 1 Tab by mouth daily. 21 Tab 06/26/2016 07/18/2016 documented in this encounter Discharge Disposition Disposition Code Departure Means Destination Auto Discharge documented in this encounter Progress Notes * Brittaney Gutiérrez MD PhD - 06/26/2016 1600 EDT Subjective: Patient ID: Venkata Zhao is an 31 y.o. male. Chief Complaint Patient presents with ??? Anxiety fu ??? 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 However, his schedule was switched from nights to days, which he found very stressful. In his words, dealing with very ill or dying patients every day did not mix well with my personality. He felt so distressed he quit his job. He was seen in clinic by Harsh Valverde who started a short course of nightly trazadone for insomnia and lorazepam. She also referred Venkata to [facility] outpatient psychiatry, where hewas seen by Dr. Doran who started him on abilify 5 mg. He is here today to see how he is tolerating this and to see if a dose increase is clinically indicated at this time. Venkata says that he is feeling less anxious this week, but is unable to quantify this for me. He says that he is not sure if it is due to the Abilify or if it is secondary to removing stress from hislife (he quit his job). He denies any GI upset, involuntary movements, changes to vision or gait, feelings hyper- alertness. He is slow to respond to several questions and answers I don't know to myprobes into specific anxiety symptoms. He says that his sleep has improved and that he did not feelthat he had to renew his trazadone prescription to sleep well at night. Patient Active Problem List Diagnosis ??? Allergic rhinitis ??? Scalp cyst ??? NIA (obstructive sleep apnea) ??? Morbid obesity ??? Psychotic episode ??? Eczema ??? Primary insomnia ??? Anxiety Outpatient Prescriptions Marked as Taking for the 06/26/16 encounter (Office Visit) with Brittaney Gutiérrez MD,PHD Medication Sig Note Dispense Refill ??? ARIPiprazole (ABILIFY) 5 mg tablet Take 1 Tab by mouth daily. 21 Tab 0 ??? [DISCONTINUED] ARIPiprazole (ABILIFY) 5 mg tablet Take 1 Tab by mouth daily. 7 Tab 0 ??? LORazepam (ATIVAN) 1 mg tablet Take 1 mg by mouth at bedtime as needed for Anxiety. 06/26/2016: Has not taken in last few days ??? melatonin 3 mg tablet Take 1 Tab by mouth at bedtime as needed (insomnia). (Patient taking differently: Take 10 mg by mouth at bedtime as needed (insomnia). ) 30 Tab 3 ??? therapeutic hand-body (EUCERIN ORIGINAL) lotion Apply topically as needed. Review of Systems Constitutional: Negative for chills, fever and weight loss. Cardiovascular: Negative for chest pain. Neurological: Negative for tingling, tremors, sensory change, speech change, focal weakness, seizures and headaches. Psychiatric/Behavioral: Negative for hallucinations, substance abuse and suicidal ideas. The patient is nervous/anxious (improving) and has insomnia (improving). - See HPI Objective: Visit Vitals ??? BP 126/84 ??? Pulse 76 ??? Temp 36.6 ??C (97.9 ??F) (Tympanic) ??? Resp 18 ??? Wt (!) 158.8 kg (350 lb) ??? BMI 48.84 kg/m2 Physical Exam Constitutional: He is oriented to person, place, and time. He appears well- developed and well-nourished. HENT: Mouth/Throat: Mucous membranes are moist. Eyes: Conjunctivae and EOM are normal. Neurological: He is alert and oriented to person, place, and time. No cranial nerve deficit. Skin: Skin is warm and dry. No rash noted. Psychiatric: Thought content normal. His speech is delayed. His speech is not rapid and/or pressured and not tangential. He is not agitated and not aggressive. He expresses no suicidal plans and no homicidal plans. Venkata makes good eye contact but does have some latency in his responses. He continues to have a flat affect but is more interactive than at other visits and is able to laugh. He is able to talk rationally about his decision to quit his job and is uncertain if being an PROPOSAL ENGINEER is the right fit for himespecially in light of his underlying anxiety. Assessment / Plan: Venkata has shown some improvement in the anxiety and insomnia that caused him to quit his job. He has only been taking the Abilify for 1 week, and is uncertain how much improvement is due to medication and how much is due to removal of stressors. His psychiatric evaluation is ongoing and he does not currently have a definitive diagnosis, although mild schizophrenia and schizoaffective disorder are in the differential. To treat these disorders an increase in aripiprazole to 10 mg is warranted, however I feel that with his mild improvement and short time course I would leave this dosing decision up to his treating psychiatrist, whom he his due to see on 07/11. He will call if his anxiety worsens or hallucinations/delusions appear. He is in the process of contacting a new therapist for CBT as well. Venkata was seen today for anxiety and medications refill. Diagnoses and all orders for this visit: Anxiety Psychophysiological insomnia Other orders - Cancel: ARIPiprazole (ABILIFY) 5 mg tablet; Take 1 Tab by mouth daily. - Cancel: traZODone (DESYREL) 100 mg tablet; Take 1 Tab by mouth at bedtime. - ARIPiprazole (ABILIFY) 5 mg tablet; Take 1 Tab by mouth daily. Brittaney Gutiérrez MD,PHD 06/26/16 * Evon Morrison MD - 06/26/2016 1600 EDT Discussed with the resident while the patient was in the office. Agree with assessment and plan. Evon Morrison MD documented in this encounter Plan of [...] learn more about your health please visit: https://www.[facility].org/medcenter/Pages/Wellness-Resources/Nlgijkrms-Cbirdj-Hz sourc e-Center.aspx documented as of this encounter Visit Diagnoses Diagnosis Anxiety- Primary Anxiety state, unspecified Psychophysiological insomnia Persistent disorder of initiating or maintaining sleep documented in this encounter Discontinued Medications Medication Sig Discontinue Reason Start Date End Da te ARIPiprazole (ABILIFY) 5 mg tablet Take 1 Tab by mouth daily. Reorder 06/20/2016 06/26/2016 documented as of this encounter Care Teams Multi Purpose Machine Operator Relationship Specialty Start Date End Date Tremaine Shankar MD 1 [facility] Level [address] [place] [address] PCP - General 10/18/15 06/21/18 Brittaney Gutiérrez MD PhD 111 [facility] 2 [place] [phone] PCP - Alternate 10/21/15 02/12/18 documented as of this encounter
--- OUTSIDE RECORDS SUMMARY | 2024-06-16 15:26 | XMS_ITS | Encounter Summary ---
Author Organization [facility] Address [address] [place] [address] Care Team Providers Care Neck Pinner Name Role Phone Tremaine Shankar MD Primary Care Provider + Brittaney Gutiérrez MD PhD Unavailable [phone] Reason for Visit * Reason Onset Date Comments Medications Refill 09/14/2016 lorazepam Encounter Details Date Type Department Care Team (Late st Contact Info) Description 09/14/2016 Refill [facility] Adult Primary Care [facility] 1 [place], [place] [id number] Tremaine Shankar MD 1 [facility] Level [address] [place] [address] Medications Refill (lorazepam) Social History Tobacco Use Types Packs/Day Years [...] Anxiety. Daily Max: 0.5 mg 15 Tab 09/14/2016 10/11/2016 documented in this encounter Miscellaneous Notes * Telephone Encounter - Anca Ta - 09/14/2016 1143 EST Lorazepam phoned into [facility]. * Telephone Encounter - Karissa Morillo MD - 09/14/2016 1141 EST VPMS verified. Prescription for lorazepam refilled. * Telephone Encounter - Annie Porras - 09/14/2016 1020 EST Medication(s) Requested: Lorazepam Pharmacy: [facility] Last Refill Date: 07/31/16 Last Visit Date: 07/31/16 Next Visit Date: Visit date not found Is patient out of medication? no Annie Porras 09/14/2016 10:20 documented in this encounter Plan of Treatment [...] more about your health please visit: https://www.[facility].org/medcenter/Pages/Wellness-Resources/Oqpqyllud-Wtusfc-Kw sourc e-Center.aspx documented as of this encounter Visit Diagnoses Diagnosis Anxiety- Primary Anxiety state, unspecified documented in this encounter Discontinued Medications Medication Sig Discontinue Reason Start Date End Da te LORazepam (ATIVAN) 1 mg tabletIndications:Anxiet y Take 0.5 Tabs by mouth at bedtime as needed for up to 30 days for Anxiety. Daily Max: 0.5 mg Reorder 07/31/2016 09/14/2016 documented as of this encounter Care Teams Neck Pinner Relationship Specialty Start Date End Date Tremaine Shankar MD 1 [facility] 1 [place] [phone] PCP - General 10/18/15 06/21/18 Brittaney Gutiérrez MD PhD 111 [facility] 2 [place] [phone] PCP - Alternate 10/21/15 02/12/18 documented as of this encounter
--- OUTSIDE RECORDS SUMMARY | 2024-06-16 15:26 | XMS_ITS | Encounter Summary ---
Author Organization [facility] Address [address] [place] [address] Care Team Providers Care Training And Development Officer Name Role Phone Tremaine Shankar MD Primary Care Provider + Brittaney Gutiérerz MD PhD Unavailable [phone] Reason for Visit * Reason Comments Obesity Encounter Details Date Type Department Care Team (Late st Contact Info) Description 12/22/2015 9:00 EDT Community Health Team [facility] Adult Primary Care [address] [id number] Cht, [facility] Social History Tobacco Use Types Packs/Day Years [...] - - Weight 168.3 kg (371 lb) 12/22/2015 0908 EDT wit h boots Height - - Body Mass Index 51.74 11/09/2015 1207 EST documented in this encounter [...] encounter Progress Notes * Candice Villalobos - 12/22/2015 0820 EDT Community Health Team Health Plastics Supervisor Follow Up Encounter Date of visit: 12/22/2015 Health coaching follow up with Venkata Zhao for obesity, original referral from Dr. Tremaine Shankar. This is the second encounter. SUBJECTIVE: Reviewed plan from previous visit with pt. Plan was to eat one plant protein based meal/week, may try food logging and follow the healthy plate method. Pt's weight today is 371 pounds, with boots. Venkata states he was in yesterday and his weight was at 378 pounds which surprised him, requested checking his weight today. Today weight is 371 pounds (with boots). Venkata self-reported his weight as 360 at an apt in October and is not sure that was accurate at the time, I just don't want everyone to think I gained like 18 pounds between visits. I think 360 wasn't accurate. Nutrition: Venkata reports being more mindful of choices overall. He has started to use my fitness pal to food log some days and has found this helpful. States he's thinking about quality verses quantity now. Is eating more vegetables and fish/seafood. States he's having a large salad as a meal moreoften. Continues to notice benefits of improved sleep hygiene on his nutrition (specifically notes l ack of late night meals/snacking since going to bed on time.) Physical Activity: Venkata has made contact with [facility] in [place]. He has not started attending the gym at this point and states he sees this as his next step. States he has created a longer loop to walk the dog. States he's noticed improvements with shortness of breath and overall stamina on a recent hike compared to the same trail last year. OBJECTIVE: BMI AND WEIGHT 11/09/2015 12/21/2015 12/22/2015 Weight (lb) 364 lb 378 lb 371 lb Weight (Kg) 165.109 kg 171.46 kg 168.284 kg Body Mass Index 50.79 52.74 51.77 TOPIC OF CONVERSATION: Engaged patient in conversation related to positive behavior change, self- management, goal setting and action planning using motivational interviewing and active listening. Venkata shares overall changes made to his daily activity and diet choices. Notes improvement he's noticed. Please see above under nutrition and physical activity. Venkata states his next step will be focused around exercise. Balta begin to visit the gym within the next week. Venkata is thinking about trying to go 4 days/weekbut does not want to make an action plan around this as he feels he needs to explore routine at this point. HC will send check- in e-mail to pt around his overall progress in 2 weeks, we will meet again in one month. Educational materials provided: [facility] [employer] flyer, fitness tool site Method: verbal Taught to: Patient Barriers: no barriers Outcomes: Pt verbalized understanding STAGE OF CHANGE: Action Action plan: Goals ??? Weight Loss Goal: Participate in the Community Health Team program to lose >10 lbs of weight Confidence level (1= Not very confident; 10 = Very confident): 6 Sources of support: Community health Team, Family and Therapist Barriers to change: None Counseling was provided to assess readiness, confidence and/or barriers to self-care. To learn more about your health please visit: https://www.[facility].org/medcenter/Pages/Wellness-Res ources/Giabmuwtn-Myylvz-Iddfcsgc-Center.aspx PATIENT IDENTIFIED GOALS: Venkata is pleased with his progress toward improving his health and weight loss. Weight today is 371 pounds (with shoes). We plan to check pt's weight at each visit. PLAN: Venkata will continue with the healthy changes he's made to his diet so far and will add a focus to be more active, specifically he plans to go to the gym weekly. Venkata declined creating an action plan today, states he'd like to explore the change at this time. We will check-in via e-mail in 2 week sand will emet again in one month. Pt is encouraged to contact me with questions as needed. ADDITIONAL INFORMATION FOR PROVIDER: Thank you for this referral Patient's Primary Care Site: Adult Primary Care [address] Total Time: 45 minutes spent with pt, 15 minutes charting/scheduling Referral: none at this time Follow up: Date: Tuesday, January 19, 2016 Time: 4:00 PM With: Candice Villalobos, Health Plastics Supervisor Location: [facility], [address] [place] [address] Status: Active documented in this encounter Plan [...] more about your health please visit: https://www[facility].org/medcenter/Pages/Wellness-Resources/Isccjrjjq-Rykavw-Dd sourc e-Center.aspx documented as of this encounter Visit Diagnoses Not on filedocumented in this encounter Care Teams Training And Development Officer Relationship Specialty Start Date End Date Tremaine Shankar MD [address] [place] [phone] PCP - General 10/18/15 06/21/18 Brittaney Gutiérrez MD PhD [address] [place] [address] 2 [place] [address] PCP - Alternate 10/21/15 02/12/18 documented as of this encounter
--- OUTSIDE RECORDS SUMMARY | 2024-06-16 15:26 | XMS_ITS | Encounter Summary ---
Author Organization [facility] Address [address] [place] [address] Care Team Providers Care Hydrogen Plant Operator Name Role Phone Tremaine Shankar MD Primary Care Provider + Brittaney Gutiérrez MD PhD Unavailable [phone] Reason for Visit * Reason Onset Date Comments Provider Referred 02/09/2016 Encounter Details Date Type Department Care Team (Late st Contact Info) Description 02/09/2016 Telephone [facility] Dermatology 3rd Floor [facility] [address] [place], [place] [id number] Milton Lee MD Provider Referred Social History Tobacco Use Types [...] encounter Miscellaneous Notes * Telephone Encounter - Sonia Kim RN - 02/18/2016 1026 EDT Referring provider informed that attempts to reach patient were unsuccessful. Sonia Kim, RN * Telephone Encounter - Krystian Chavez - 02/09/2016 0944 EDT Brittaney Gutiérrez MD is referring patient for a rash on hands. Notes are in prism. documented in this encounter Plan of Treatment [...] please visit: https://www.[facility].org/medcenter/Pages/Wellness-Resources/Bimjydjgv-Ltalkd-Uk sourc e-Center.aspx documented as of this encounter Visit Diagnoses Not on filedocumented in this encounter Care Teams Hydrogen Plant Operator Relationship Specialty Start Date End Date Tremaine Shankar MD [address] [place] [address] 1 [place] [address] PCP - General 10/18/15 06/21/18 Brittaney Gutiérrez MD PhD [address] [place] [address] 2 [place] [address] PCP - Alternate 10/21/15 02/12/18 documented as of this encounter
--- OUTSIDE RECORDS SUMMARY | 2024-06-16 15:26 | XMS_ITS | Encounter Summary ---
Author Organization [facility] Address [address] [place] [address] Care Team Providers Care Baster Hand Name Role Phone Tremaine Shankar MD Primary Care Provider + Brittaney Gutiérrez MD PhD Unavailable [phone] Reason for Referral * Consult (Routine) - Specialty Report Received Specialty Diagnoses / Procedures Referred By [facility] Referred To Contact Dermatology Diagnoses Eczema, unspecified type Jaky Childers MD [address] [place] [phone] [place] [address] Dermatology [address] [place] [address] Referral ID Status Reason Start Date Expiration Date Visits Requested Visits Authorized [id number] Specialty Report Received Specialty Services Required 05/14/2017 1 1 Question Answer Reason for Request: eczema of both hands Reason for Visit * Reason Onset Date Comments Referral Request 05/14/2017 Encounter Details Date Type Department Care Team (Late st Contact Info) Description 05/14/2017 Telephone [facility] Adult Primary Care - [address] [address] Tremaine Shankar MD [address] [phone] Referral Request Social History Tobacco Use Types Packs/Day Years [...] * Telephone Encounter - Marisol Perla - 05/14/2017 1609 EDT Patient is aware that Dermatology is booking far out. He refused an OV. He states that he will waitto see Dr. Gutiérrez is June. * Telephone Encounter - Rita Bajwa MD - 05/14/2017 1224 EDT [facility] asked to sign referral to dermatology for rash on hands. I do not know this patient and have not seen the rash. Will ask staff to call him and let him know it might make sense for him to be seen in clinic for the rash since it will likely take a long time to be seen at derm. Will sign referral as well. Rita Bajwa MD Internal Medicine PGY-2 Pager #[phone] 05/14/2017 12:25 * Telephone Encounter - Adriane Champagne RN - 05/14/2017 1140 EDT Requested referral pended and routed to [facility] for review and signature * Telephone Encounter - Marisol Perla - 05/14/2017 1059 EDT Patient would like a referral to Dermatology within [facility] for rash on hands. documented in this encounter Plan of Treatment Scheduled Referrals Name Type Priority Associated Diagnoses Orde r Schedule AMB CONS/FOLLOW UP DERMATOLOGY Outpatient Referral Routine Eczema, unspecified type Ordered: 05/14/2017 documented as of this encounter Goals Goal [...] learn more about your health please visit: https://www.[facility].org/medcenter/Pages/Wellness-Resources/Nkbrsaxfx-Qdpipp-Gu sourc e-Center.aspx documented as of this encounter Visit Diagnoses Diagnosis Eczema, unspecified type- Primary documented in this encounter Care Teams Baster Hand Relationship Specialty Start Date End Date Tremaine Shankar MD [address] [facility] 1 [place] [phone] PCP - General 10/18/15 06/21/18 Brittaney Gutiérrez MD PhD [address] [place] [address] 2 [place] [address] PCP - Alternate 10/21/15 02/12/18 documented as of this encounter
--- OUTSIDE RECORDS SUMMARY | 2024-06-16 15:26 | XMS_ITS | Encounter Summary ---
Author Organization [facility] Address [address] [place] [address] Care Team Providers Care Operations Research Director Name Role Phone Tremaine Shankar MD Primary Care Provider + Brittaney Gutiérrez MD PhD Unavailable Encounter Details Date Type Department Care Team (Late st Contact Info) Description 10/13/2016 Phlebotomy Only [facility] [address] [place] [address] Hotel Staff Member, Outpatient Morbid (severe) obesity due to excess calories ; Medication adverse effect, initial encounter Social History Tobacco Use Types Packs/Day Years [...] No 10/11/2016 documented as of this encounter Plan of [...] your health please visit: https://www.[facility].org/medcenter/Pages/Wellness-Resources/Bdudjwjgy-Lbjfor-Cl sourc e-Center.aspx documented as of this encounter Procedures Procedure Name Priority Date/Time Associated Diagnosis Comments LIPID PROFILE (INCLUDES CHOLESTEROL, TRIGLYCERIDES, HDL, LDL) Routine 10/13/2016 8:59 EST Morbid (severe) obesity due to excess calories Medication adverse effect, initial encounter documented in this encounter Results * LIPID PROFILE (INCLUDES CHOLESTEROL, TRIGLYCERIDES, HDL, LDL) (10/13/2016 8:59 EST) Cholesterol 138 mg/dl 10/13/2016 10:59 [facility] Comment: Desirable:<200 Borderline High:200-239 High:>tt=909 Triglycerides 75 mg/dl 10/13/2016 10:59 [facility] Comment: Normal:<150 Borderline High:150-199 High:200-499 Very High:>ll=062 HDL 50 mg/dl 10/13/2016 10:59 [facility] Comment: Low:<40 Normal:40-60 Desirable: >60 LDL, Calculated 73 mg/dl 7 10:59 [facility] Comment: Optimal:<100 Near Optimal:100-129 Borderline High:130-159 High:160-189 Very High:>ol=825 Chol/HDL Ratio 2.8 10/13/2016 10:59 [facility] Fasting? YES 10/13/2016 9:00 [facility] Non HDL Cholesterol 88 mg/dl 10/13/2016 10:59 [facility] Comment: Desirable:<130 Borderline:130-159 High: 160-189 Very High: >ty=334 Blood specimen (specimen) BLOOD SPECIMEN / Unknown 10/13/2016 8:59 EST 10/13/2016 10:24 EST Tremaine Shankar MD CHEMISTRY & BLOO D GAS ORDERABLES [facility] [address] [place] [address] documented in this encounter Visit Diagnoses Diagnosis Morbid (severe) obesity due to excess calories Medication adverse effect, initial encounter documented in this encounter Care Teams Operations Research Director Relationship Specialty Start Date End Date Tremaine Shankar MD 1 [facility] 1 [place] [phone] PCP - General 10/18/15 06/21/18 Brittaney Gutiérrez MD PhD 111 [facility] 2 [place] [phone] PCP - Alternate 10/21/15 02/12/18 documented as of this encounter
--- OUTSIDE RECORDS SUMMARY | 2024-06-16 15:26 | XMS_ITS | Encounter Summary ---
Author Organization [facility] Address [address] [place] [address] Care Team Providers Care Biostatistics Professor Name Role Phone Tremaine Shankar MD Primary Care Provider + Brittaney Gutiérrez MD PhD Unavailable [phone] Reason for Visit * Reason Comments Anxiety Encounter Details Date Type Department Care Team (Late st Contact Info) Description 07/11/2016 14:30 EDT Office Visit [facility] Adult Primary Care [address] [phone] Unknown, Provider, Amilcar Mcdaniels MD [address] [facility], [address] [place] [phone] Katrina Doran MD Psychotic episode ([facility]) (Primary Dx); Anxiety Discharge Disposition: Auto Discharge [...] Reading Time Taken Comments Blood Pressure 110/80 07/11/2016 1424 EDT Pulse 100 07/11/2016 1424 EDT Temperature 36.6 ??C (97.9 ??F) 07/11/2016 1424 EDT Respiratory Rate 18 07/11/2016 1424 EDT Oxygen Saturation - - Inhaled Oxygen [...] as of this encounter Discharge Diagnoses Diagnosis F23 Brief psychotic disorder-F23[ICD-10-CM] F41.9 Anxiety disorder, unspecified-F41.9[ICD-10-CM] documented in this encounter Discharge Disposition Disposition Code Departure Means Destination Auto Discharge documented in this encounter Progress Notes * Katrina Doran MD - 07/11/2016 1430 EDT Primary Care Psychiatry Consultation Follow-up Note Date: 07/11/2016 Patient Profile: Venkata Zhao 31 y.o. male Chief Complaint: anxiety HPI: Mr. Venkata Zhao presents for follow up of anxiety and psychosis NOS after his initial psychiatric evaluation on 06/20/16 when he was started on Abilify, now titrated to 5 mg at night. 1 week ago he began taking it at night (for ease of medication administration, as he also takes Trazodone 100mgand Ativan 0.5 mg QHS). He has not noticed any side-effects. He denies akathesia or sedation. He reports feeling much better compared to our last meeting. Today he denies feeling depressed and denies suicidal ideation. He rates his anxiety at a 3 out of 10. He notes his anxiety has greatly reduced, and he is able to attend to various errands and housework. He has been focusing on his wellness and is no longer preoccupied with worries about the news (i.e. Politics, world events). I review some of his prior symptoms from our last appointment, and he notes that at the end of May he was having fears that the [place] Police were following him. He is able to reality test around this today and denies symptoms of paranoia, delusions, or A/V hallucinations. He also has a more practical outlook on his family relations, and denies excessive guilt or worry that he was self centered(something he reported at out last visit). He no longer has a fear that he might have a head infection, noting my mom mentioned in the past that root canals could cause mental illness, but that doesn't make any sense, I'm not sure what I was thinking before. 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 He reflects that his last job was too stressful, and he was constantly worried he might do something wrong (his previous clients were high risk and frequently deco mpensating). His sleep is improved. He denies difficulty falling or staying asleep. His appetite has been stable, he is trying to loose weight through diet and exercise. His energy level during the day is good. Psychiatric Review of Systems: Negative unless noted below: Pos Depression Hypomania/fe Panic x Anxiety - mild, significantly reduced Obsessions/compulsions Phobia Dissociation Hallucinations Delusions General Review of Systems: Negative unless noted below: Pos ROS Constitutional Eyes Ears, nose, throat Cardiovascular Respiratory Gastrointestinal Genitourinary Musculoskeletal Integumentary Neurological Endocrine Hematologic Allergic Past Family and Social History: Patient Active Problem List Diagnosis ??? Allergic rhinitis ??? Scalp cyst ??? NIA (obstructive sleep apnea) ??? Morbid obesity ??? Psychotic episode ??? Eczema ??? Primary insomnia ??? Anxiety Current Outpatient Prescriptions Medication ??? ARIPiprazole (ABILIFY) 5 mg tablet ??? clotrimazole (LOTRIMIN) 1 % cream ??? diphenhydrAMINE (BENADRYL) 25 mg capsule ??? LORazepam (ATIVAN) 1 mg tablet ??? melatonin 3 mg tablet ??? therapeutic hand-body (EUCERIN ORIGINAL) lotion ??? traZODone (DESYREL) 100 mg tablet No current facility-administered medications for this visit. Allergies Allergen Reactions ??? Latex, Natural Rubber Vitals: 07/11/16 1424 BP: 110/80 BP Cuff Location: Left arm Patient Position: Sitting BP Cuff Sizes: Adult, large Pulse: 100 Resp: 18 Temp: 36.6 ??C (97.9 ??F) TempSrc: Tympanic Mental Status Examination: Oriented to person, place, and time Appearance: Morbidly obese man with short-cut dark hair. Wearing casual clothes Behavior: calm and cooperative. Notably less anxious and more easily engaged. Speech: some latency prior to responding, but much more spontaneous responses compared to last exam. Regular rate, volume, and tone Thought process: Logical, goal directed. Thought content: positive, demonstrates ability to reality-test regarding prior paranoid thoughts and excessive fears. Future-oriented Hallucinations: denies Delusions: denies Judgment: good Insight: good Attention: grossly intact. Language: normal Fund of Knowledge: manufacturers representative of education level Mood: good Memory: grossly intact, able to recount recent treatment changes accurately. Aware of current events. Affect: Remains constricted, but cabrera and brighter compared to prior exam. Able to smile and laugh briefly. Suicidality: denies Homicidality: denies Other: outside records from [facility] (discharge summaries from inpatient psychiatric hospitalizations in 2012 were reviewed). He was noted to display disorganized thought processes, perseveration, and blunted affect during both hospitalizations. During both hospitalizations, he responded well to Zyprexa. He left AMA from his brief second hospitalization, although staff at [facility] helped coordinate his outpatient care. Assessment Mr. Venkata Zhao is a 31 y.o. partnered (girlfriend) man, currently unemployed [employer], with history of Psychosis NOS (likely schizophrenia vs schizoaffective disorder), morbid obesity, and obstructive sleep apnea (on CPAP) who recently quit his job in the context of anxiety, insomnia, and ruminativ e/paranoid thoughts. His symptom history (possible prodromal phase in college and 2 prior psychiatric hospitalizations for thought disorganization, paranoia, and bizarre behavior) and risk factors (strong family history, past heavy marijuana use) raise concern for schizoaffective disorder versus mild schizophrenia. Alternative diagnoses remain possible, such as severe anxiety with obsessive nature or complex PTSD. We initiated Abilify on 06/20 to target his ruminative anxiety, severe emotional distress, and paranoid thoughts. With this medication change, his symptoms have improved significantly. He denies depression, or paranoia on exam today. His mental status exam is notable for improved spontaneity of responses and a brighter affect today. A minimal amount of anxiety remains, but significantly reduced and his adaptive functioning is intact (able to work on house projects, run errands, and meet with vocational rehab). ?? We discussed the relative risks and benefits of various treatment options today, and all questions were answered to satisfaction. ?? Diagnoses: 1) Unspecified anxiety disorder 2) Psychosis NOS (mild schizophrenia versus schizoaffective disorder versus obessessive ruminations) ?? Recommendations: 1) Continue Abilify 5 mg. Consider increasing dose to 7.5 mg if anxiety worsens or paranoid symptoms return. Patient is aware of potential side-effects of this medication, including weight gain, metabolic syndrome, akathesia, and dystonia/involuntary muscle movements. 2) if his anxiety and sleep remain stable, could consider discontinuing Ativan (if his sleep and anxiety remain stable after this change is in effect, would also consider discontinuing Trazodone). Both medications are being used appropriately currently. 2) recommend metabolic monitoring annually for long-term treatment on second generation antipsychotics: Hemoblobin A1c or fasting glucose, lipid profile, BMI, and waist circumference. 4) Venkata will pursue individual therapy at the [facility] 5) Venkata was advised to call or be seen right away if he is getting worse in any way, including: thoughts of suicide or worsening symptoms 6) follow up with Dr. Gutiérrez in 4 weeks I did not schedule a follow-up appointment with Mr. Venkata Zhao. I would be happy to see him in the future if additional consultation would be helpful. Thank-you for consulting us in the care of Mr. Venkata Zhao. Please feel free to contact me forfurther collaboration or with questions regarding this case. ?? I spent over 50% (18 minutes) of this 25 minute appointment in counseling and of care, including: impression, diagnosis, prognosis, risks and benefits of treatment options (including relative risks and benefits of Abilify, common side-effects of Abilify, risk of metabolic syndrome with Abilify), risk factor reduction (including sleep hygiene, exercise), encouraging compliance, patient education, and coordination of care with Dr. Brittaney Gutiérrez. Katrina Doran MD, PhD 07/11/2016 15:32 Addendum: I saw and examined Mr Zhao with Dr Cedeño. I agree with the findings and recommendations documented above. Amilcar Mcdaniels MD, MPH documented in this [...] your health please visit: https://www[facility].org/medcenter/Pages/Wellness-Resources/Yurdvzgxh-Fxuruv-Ks sourc e-Center.aspx documented as of this encounter Visit Diagnoses Diagnosis Psychotic episode ([facility])- Primary Unspecified psychosis Anxiety Anxiety state, unspecified documented in this encounter Care Teams Biostatistics Professor Relationship Specialty Start Date End Date Tremaine Shankar MD [address] [place] [address] 1 [place] [phone] PCP - General 10/18/15 06/21/18 Brittaney Gutiérrez MD PhD [address] [place] [address] 2 [place] [phone] PCP - Alternate 10/21/15 02/12/18 documented as of this encounter
--- OUTSIDE RECORDS SUMMARY | 2024-06-16 15:26 | XMS_ITS | Encounter Summary ---
Author Organization [facility] Address [address] [place] [address] Care Team Providers Care Teacher Music Name Role Phone Tremaine Shankar MD Primary Care Provider + Brittaney Gutiérrez MD PhD Unavailable [phone] Encounter Details Date Type Department Care Team (Late st Contact Info) Description 07/31/2016 Phlebotomy Only [facility] - [address] [address] Sociocultural Anthropology Professor, Outpatient Other detention (current) drug therapy ; Screening for diabetes mellitus; Obesity, unspecified obesity severity, unspecified obesity type Social History Tobacco Use Types Packs/Day [...] No 07/31/2016 documented as of this encounter Plan of [...] about your health please visit: [email or web address]://www.[facility].org/medcenter/Pages/Wellness-Resources/Wcrditlkv-Lvofwi-Mx [facility] e-Center.aspx documented as of this encounter Procedures Procedure Name Priority Date/Time Associated Diagnosis Comments HEMOGLOBIN A1C Routine 07/31/2016 11:17 EST Other detention (current) drug therapy Screening for diabetes mellitus LIPID PROFILE (INCLUDES CHOLESTEROL, TRIGLYCERIDES, HDL, LDL) Routine 07/31/2016 11:17 EST Obesity, unspecified obesity severity, unspecified obesity type documented in this encounter Results * LIPID PROFILE (INCLUDES CHOLESTEROL, TRIGLYCERIDES, HDL, LDL) (07/31/2016 11:17 EST) Cholesterol 147 mg/dl 07/31/2016 15:17 [facility] Comment: Desirable:<200 Borderline High:200-239 High:>rs=343 Triglycerides 131 mg/dl 07/31/2016 15:17 [facility] Comment: Normal:<150 Borderline High:150-199 High:200-499 Very High:>qk=041 HDL 44 mg/dl 07/31/2016 15:17 [facility] Comment: Low:<40 Normal:40-60 Desirable: >60 LDL, Calculated 77 mg/dl 6 15:17 [facility] Comment: Optimal:<100 Near Optimal:100-129 Borderline High:130-159 High:160-189 Very High:>rx=304 Chol/HDL Ratio 3.3 07/31/2016 15:17 [facility] Fasting? No 07/31/2016 11:18 [facility] Non HDL Cholesterol 103 mg/dl 07/31/2016 15:17 [facility] Comment: Desirable:<130 Borderline:130-159 High: 160-189 Very High: >bq=396 Blood specimen (specimen) BLOOD SPECIMEN / Unknown 07/31/2016 11:17 EST 07/31/2016 13:38 EST Najma Main DO CHEMISTRY & BLOOD G ORDERABLES Performing Organization Address [facility] Co de Phone Number [facility] [address] [place] [address] * HEMOGLOBIN A1C (07/31/2016 11:17 EST) Hemoglobin A1C 5.0 % 07/31/2016 15:15 EST [facility] Comment: Shortened red blood cell [...] Est Avg Glucose 97 mg/dl 6 15:15 EST [facility] Comment: eAG represents the A1c result expressed as average glucose in mg/dl. 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
--- OUTSIDE RECORDS SUMMARY | 2024-06-16 15:27 | XMS_ITS | Encounter Summary ---
Author Organization [facility] Address [address] [place] [address] Care Team Providers Care Pressure Sealer And Tester Name Role Phone Unavailable Primary Care Provider Unavailabl e Encounter Details Date Type Department Care Team (Late st Contact Info) Description 01/17/2007 Results Only [facility] Employee Health - Main [address] [address] Health, Nurse Employee Social History Tobacco Use Types Packs/Day Years Used Date Smoking Tobacco: Never Assessed Sex and Gender Information Value Date Recorded Sex Assigned at Not on file Gender Identity Not on file Sexual Orientation Not on file documented as of this encounter Plan of Treatment Not on file documented as of this encounter Procedures Procedure Name Priority Date/Time Associated Diagnosis Comments ZZMUMPS IGG SCREEN, S Routine 01/17/2007 11:52 EDT MEASLES IGG AB Routine 01/17/2007 11:52 EDT RUBELLA IGG ANTIBODY Routine 01/17/2007 11:52 EDT documented in this encounter Results * RUBELLA IGG ANTIBODY (01/17/2007 11:52 EDT) Rubella IgG Ab Antibody detected Assayed utilizing the [facility] Immulite 2500. Values may vary with other methods. [facility] 01/17/2007 11:5 2 EDT 01/17/2007 12:26 EDT Nurse Employee Health CHEMISTRY & BLOOD GAS ORDERABLES [facility] [address] [place] [address] * MUMPS IGG SCREEN, S (01/17/2007 11:52 EDT) Mumps IgG Screen Positive(Note ) -- EXPECTED VALUES -- ? Negative ? Test Performed by: ? [facility] of Lab Med and Pathology ? [address] , [place] [address] ? Animal Control Supervisor: Alfredo Hernandes III, M.D. ? [facility] 01/17/2007 11:5 2 EDT 01/17/2007 12:26 EDT Nurse Employee Health IMMUNOLOGY AND SER OLOGY ORDERABLES Performing Organization Address [facility] de Phone Number [facility] [address] [place] [address] * RUBEOLA IGG ANTIBODY (01/17/2007 11:52 EDT) Rubeola IgG Ab Antibody detected [facility] 01/17/2007 11:5 2 EDT 01/17/2007 12:26 EDT Nurse Employee Health IMMUNOLOGY AND SER OLOGY ORDERABLES Performing Organization Address [facility] de Phone Number [facility] [address] [place] [address] documented in this encounter Visit Diagnoses Not on filedocumented in this encounter
--- OUTSIDE RECORDS SUMMARY | 2024-06-16 15:27 | XMS_ITS | Encounter Summary ---
Author Organization [facility] Address [address] [place] [address] Care Team Providers Care Still Worker Helper Name Role Phone Venkata Fine MD Primary Care Pro vider Encounter Details Date Type Department Care Team (Late st Contact Info) Description 08/23/[address] [address] [place] [address] [place] [address] Social History Tobacco Use Types Packs/Day Years Used Date Smoking Tobacco: Never Assessed Sex and Gender Information Value Date Recorded Sex Assigned at Not on file Gender Identity Not on file Sexual Orientation Not on file documented as of this encounter Plan of Treatment Not on file documented as of this encounter Visit Diagnoses Not on filedocumented in this encounter Care Teams Still Worker Helper Relationship Specialty Start Date End Date Venkata Fine MD PCP - General 07/16/15 10/17/15 documented as of this encounter
--- OUTSIDE RECORDS SUMMARY | 2024-06-16 15:27 | XMS_ITS | Encounter Summary ---
Author Organization [facility] Address [address] [place] [address] Care Team Providers Care Emergency Department Name Role Phone Tremaine Shankar MD Primary Care Provider + Brittaney Gutiérrez MD PhD Unavailable [phone] Reason for Visit * Reason Comments CPAP Initiation And Management Encounter Details Date Type Department Care Team (Late st Contact Info) Description 11/02/2015 14:00 EST Office Visit [facility] - [address] [id number] Karne Vázquez [address] [place] [address] Sleep, Tech [address] [place], [place] [address] NIA (obstructive sleep apnea) (Primary Dx) Social [...] visiting a doctor's office or shopping? No 08/25/2015 Cognitive Status Response Date of Assessm ent Because of a physical, menta l, or emotional condition, does this person have serious difficulty concentrating, remembering, or making decisions? No 08/25/2015 documented as of this encounter Progress Notes * Sylvia Abbott - 11/03/2015 1521 EST Patient was loaned an Auto PAP machine for use for home titration. The patient's current sleep provider, who ordered the home titration, is Karen Vázquez MD The make, model and serial number of the device loaned was: Unit # 7 Patient Education Topic: Operation and Maintenance of PAP Machine Therapy Equipment: Method: Demonstration and Verbal Taught to: Patient Barriers: None Outcomes: independent, verbalized understanding and return demonstration The patient was also fit for a Full Face Mask or Nasal Pillows. The make, model and size of the mask that was loaned: P-10 medium with blue strap, [place] chinstrap adjustable; Reshma View Medium FFM. Other masks tried, but not preferred: Wisp Time spent with patient: 55 minutes The patient has an appointment on 11/02/15 to return the equipment. At this appointment, a data download from the machine will be performed and given to the ordering provider for interpretation. I was supervised by Karen Vázquez MD who was in the Sleep Center and immediately available for theentire time the service was provided. Sylvia Abbott I have reviewed the patient???s medical history and met with the patient face to face during this encounter. The patient appears well and in no apparent distress. The patient???s sleep testing results and need for PAP therapy have been reviewed with the patient. Under the industrial technologist???s instruction, the patient will undergo a trial of PAP therapy at home. A follow-up is in place to determine PAP therapy benefit and compliance. Karen Vázquez MD 11/14/2015 18:12 documented in this encounter Plan of Treatment [...] learn more about your health please visit: https://www.[facility].org/medcenter/Pages/Wellness-Resources/Iowlowhra-Llxrcq-Dz sourc e-Center.aspx documented as of this encounter Visit Diagnoses Diagnosis NIA (obstructive sleep apnea)- Primary Obstructive sleep apnea (adult) (pediatric) documented in this encounter Care Teams Emergency Department Relationship Specialty Start Date End Date Tremaine Shankar MD 1 [facility] Level [address] [place] [phone] PCP - General 10/18/15 06/21/18 Brittaney Gutiérrez MD PhD [address] [place] [address] [address] [place] [phone] PCP - Alternate 10/21/15 02/12/18 documented as of this encounter
--- OUTSIDE RECORDS SUMMARY | 2024-06-16 15:27 | XMS_ITS | Encounter Summary ---
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 Phone Tremaine Shankar MD Primary Care Provider + Brittaney Gutiérrez MD PhD Unavailable [phone] Reason for Referral * Consult (Routine/Next Available) - Specialty Report Received Specialty Diagnoses / Procedures [facility]erred To Contact Diagnoses Morbid obesity, unspecified obesity type (HCC-CMS) Tremaine Shankar MD [address] [address] Referral ID Status Reason Start Date Expiration Date Visits Requested Visits Authorized [id number] Specialty Report Received Specialty Services Required 10/29/2015 1 1 Question Answer What areas would you like the [facility] to focus on? Nutrition Help Is the patient cleared for an Exercise Program? Yes Patient's Weight (kg) (1 lb = 0.4536 kg): 165.109 - per pt Patient's Height (cm) (1 in = 2.54 cm): 180.3 Comments As we discussed in your visit today, someone will be contacting you from the Community Health Team to schedule an appointment with you. If you do not hear from the [facility] within a week please call the Community Health Team at [phone]. Reason for Visit * Reason Comments New Patient Visit Encounter Details Date Type Department Care Team ([facility] st Contact Info) Description 10/29/2015 15:00 EST Office Visit [facility] Adult Primary Care [address] [address] Unknown, Provider, Tremaine Shankar MD 1 [facility] Level [address] [place] [address] Brittaney Gutiérrez MD PhD 111 [facility] [address] [place] [address] Encounter for preventive health examination (Primary Dx); Morbid obesity, unspecified obesity type (CMS-HCC) (HCC-CMS); Penile ulcer; Screen for STD (sexually transmitted disease) Discharge Disposition: Auto Discharge Social History Tobacco [...] Reading Time Taken Comments Blood Pressure 120/70 10/29/2015 1523 EST Pulse 118 10/29/2015 1523 EST Temperature 36.5 ??C (97.7 ??F) 10/29/2015 1523 EST Respiratory Rate 24 10/29/2015 1523 EST Oxygen Saturation - - Inhaled Oxygen Concentration - - Weight 165.1 kg (364 lb) 10/29/2015 1523 EST per pt Height 180.3 cm (5' 11) 10/29/2015 1523 EST Body Mass Index 50.77 10/29/2015 1523 EST documented in this encounter Functional Status [...] No 08/25/2015 documented as of this encounter Discharge Diagnoses Diagnosis Z00.00 Encounter for general adult medical examination without abnormal findings-Z00.00[ICD-10-CM] E66.01 Morbid (severe) obesity due to excess calories-E66.01[ICD-10-CM] N48.5 Ulcer of penis-N48.5[ICD-10-CM] Z11.3 Encounter for screening for infections with a predominantly sexual mode of transmission-Z11.3[ICD-10-CM] documented in this encounter Ordered Prescriptions Prescription Sig Dispensed Refills Start Date End Da te clotrimazole (LOTRIMIN) 1 % creamIndications:Penile ulcer Apply to affected area twice daily 15 g 0 10/29/2015 10/11/2016 documented in this encounter Discharge Disposition Disposition Code Departure Means Destination Auto Discharge documented in this encounter Progress Notes * Tremaine Shankar MD - 11/05/2015 1448 EST Attestation statement: I saw and examined the patient with the resident/fellow. I agree with the findings and plan of care documented in the resident's/fellow's note. * Brittaney Gutiérrez MD PhD - 10/29/2015 1522 EST Images from the original note were not included. Subjective: Patient ID: Venkata Zhao is an 30 y.o. male. Chief Complaint Patient presents with ??? New Patient Visit AMY Hastings is coming in to establish care today. He just moved to [place] from [place] where he had a long-time care provider. He reports that he has been generally healthy, with only major medicalevents being a psychiatric hospitalization 3 years ago after a psychotic episode. He describes a par ticularly traumatic time in his life or he was not sleeping for weeks at a time and was very stressed out about his job and had one of his coworkers commit suicide. He describes several paranoid delusions at the time and cannot remember exactly what medications he received while an inpatient but hewas discharged from the inpatient unit taking only Ativan for several months and then stopped that completely. He has been followed closely by his primary care and by therapist. He has recently established psychiatric therapy at the [facility] here in [place]. His other health problems include obstructive sleep apnea which was just diagnosed a couple of days ago. He is getting set up with CPAP. He notes that he is also at the highest weight that he has ever been, and attributes this to stressful life changes recently. He is hopeful that he can change this. Social: He is a former occasional smoker, stating that he never actually had to buy a pack of cigarettes. He has not had any cigarettes since around 2012. He does smoke marijuana occasionally around 4-5 times a year. He drinks alcohol perhaps 4-5 times per month. He is recently moved in with his girlfriend of one year, and [place] are [place] [facility]. They are monogamous and she uses an oral contraceptive for control. He denies any prior STD exposure. He statesthat he has recently been approved for modified disability, although he is unsure what the actual diagnosis that qualifies him for this is. 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 Family: He denies any family history of heart disease, diabetes, hypertension, hyperlipidemia or cancer. He notes that his mother has thyroid problems. He does say that his grandfather on his mother's side of some form of cancer. Meds: The only medicine that he is currently using is a steroid cream for eczematous type reaction on his hand. Allergies: None stated Patient Active Problem List Diagnosis ??? Allergic rhinitis ??? Scalp cyst ??? NIA (obstructive sleep apnea) ??? Morbid obesity ??? Psychotic episode No outpatient prescriptions have been marked as taking for the 10/29/15 encounter (Office Visit) Brittaney Manley MD,PHD. Review of Systems Constitutional: Negative for fever, chills and weight loss. HENT: Negative for congestion, hearing loss and sore throat. Eyes: Negative for blurred vision. Respiratory: Negative for cough, shortness of breath and wheezing. Cardiovascular: Negative for chest pain, palpitations and leg swelling. Gastrointestinal: Negative for heartburn, nausea, vomiting, abdominal pain, diarrhea and constipation. Genitourinary: Negative for dysuria, urgency, frequency, hematuria and flank pain. Musculoskeletal: Negative for myalgias, back pain and joint pain. Skin: Positive for itching and rash (He notes a dry scaly rash on his right hand/thumb and redness/itching and ulceration on his glans). Neurological: Negative for dizziness, sensory change, focal weakness and headaches. Psychiatric/Behavioral: Negative for depression, suicidal ideas and substance abuse. Hallucinations: notes occasional paranoid thoughts but recognizes them as not appropriate. - See HPI Objective: BP 120/70 mmHg Pulse 118 Temp(Src) 36.5 ??C (97.7 ??F) (Tympanic) Resp 24 Ht 180.3 cm (71) Wt 165.109 kg (364 lb) BMI 50.79 kg/m2 Physical Exam Constitutional: He is oriented to person, place, and time. He appears well- developed and well-nourished. HENT: Head: Normocephalic and atraumatic. Right Ear: Hearing, tympanic membrane, external ear and ear canal normal. Left Ear: Hearing, tympanic membrane, external ear and ear canal normal. Mouth/Throat: Oropharynx is clear and moist and mucous membranes are normal. He does not have dentures. No oral lesions. Normal dentition. No dental abscesses. Eyes: Conjunctivae and EOM are normal. Pupils are equal, round, and reactive to light. No scleral icterus. Neck: Normal range of motion. Neck supple. No thyromegaly present. Cardiovascular: Normal rate, regular rhythm and normal heart sounds. Exam reveals no gallop and no friction rub. No murmur heard. Pulmonary/Chest: Effort normal and breath sounds normal. No respiratory distress. He has no wheezes. He has no rales. Abdominal: Soft. Bowel sounds are normal. He exhibits no mass. Distention: obese. There is no tenderness. Genitourinary: Testes normal. Circumcised. Penile erythema present. No discharge found. Dry scaly skin and small painful ulceration near the glans penis. Erythema in the intertriginous areas Musculoskeletal: Normal range of motion. He exhibits no tenderness. Lymphadenopathy: He has no cervical adenopathy. Neurological: He is alert and oriented to person, place, and time. Skin: Skin is warm and dry. Rash noted. He is not diaphoretic. There is erythema (intertrigenous). Area of dry flaking skin on right hand Psychiatric: He has a normal mood and affect. His speech is normal and behavior is normal. Judgmentnormal. Thought content is not paranoid and not delusional. He expresses no suicidal ideation. He expresses no suicidal plans. Assessment / Plan: Venkata is here to establish care with new primary care physician in the area. His major medical problem is morbid obesity which she states he is well aware of and would like to address. His major goal is to get back to a weight of about 340 pounds in the next 6 months. He notes that his girlfriend will be completing her degree in January and that they are likely to start changing their diet and exercise habits together. We talked about healthy eating habits and exercising, and I also suggested thathe might start with a referral to the [facility]. He is not interested in bariatric surgery at this point. From a psychiatric standpoint he seems to be in a fairly stable place and has a very good support network in his romantic partner as well as a therapist [facility]. He states that perhaps down theline he would be more interested in talking about having some sort of preventative medication but at this point feels that he is not a good spot. His genital lesion appears to be more likely fungal than viral; however just to be on the safe sidewe swabbed it for HSV today. I will follow-up with him with results. Venkata was seen today for new patient visit. Diagnoses and all orders for this visit: Encounter for preventive health examination Morbid obesity, unspecified obesity type Orders: - Amb Consult/Follow Up Community Care Team Penile ulcer Orders: - Mucocutaneous Virus Detection; Future - clotrimazole (LOTRIMIN) 1 % cream; Apply to affected area twice daily Screen for STD (sexually transmitted disease) Orders: - HIV 1/2 Antibody; Future This patient was staffed with Dr. Raad Gutiérrez MD,PHD 10/29/2015 17:30 documented in this encounter Plan of Treatment Scheduled Referrals Name Type Priority Associated Diagnoses Orde r Schedule AMB CONS/FOLLOW UP [facility]ITY [facility] TEAM Outpatient Referral Routine Morbid Obesity, Unspecified Obesity Type ([facility]) Ordered: 10/29/2015 documented as of this encounter Goals Goal [...] more about your health please visit: https://www.[facility].org/medcenter/Pages/Wellness-Resources/Gsnzalcql-Eemncr-Jq sourc e-Center.aspx documented as of this encounter Results * MUCOCUTANEOUS VIRUS DETECTION (10/29/2015 18:00 EST) Result No Herpes simplex virus Type 1 or Type 2 detected by PCR. 10/31/2015 10:47 EST [facility] Result (Note) Analyte Specific Reagent. This test was developed and its performance characteristics determined by Laboratory Medicine and Pathology, [facility]. This test has not been cleared or approved by the U.S. Food and Drug Administration. FDA does not require this test to go through premarket FDA review. This test is used for clinical purposes. It should not be regarded as investigational or for research. This laboratory is certified under the Clinical Laboratory Improvement Amendments of 1988 (CLIA) as qualified to perform high complexity clinical laboratory testing. 10/31/2015 10:47 EST [facility] GENITAL STRUCTURE / Unknown 10/29/2015 18:00 EST 10/29/2015 18:34 EST Tremaine Shankar MD MICROBIOLOGY - G ENERAL ORDERABLES [facility] [address] [place] [address] documented in this encounter Visit Diagnoses Diagnosis Encounter for preventive health examination- Primary Routine general medical examination at a health care facility Morbid obesity, unspecified obesity type (HCC-CMS) Penile ulcer Other specified disorder of penis Screen for STD (sexually transmitted disease) Screening examination for venereal disease documented in this encounter 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
--- OUTSIDE RECORDS SUMMARY | 2024-06-16 15:27 | XMS_ITS | Encounter Summary ---
Author Organization [facility] Address [address] [place] [address] Care Team Providers Care Administrative Support Assoc Name Role Phone Venkata Fine MD Primary Care Pro vider Reason for Visit * Reason Comments Suture / Staple Removal Encounter Details Date Type Department Care Team (Late st Contact Info) Description 10/14/2015 11:00 EST Office Visit [facility] ENT [facility] [address] [place] [address] Unknown, MD Erinn Albaro Loyd MD [address] [facility] [address] [place] [address] Skin lesion (Primary Dx) Social History Tobacco Use Types Packs/Day Years Used Date Smoking Tobacco: Passive Smo ke Exposure - Never Smoker Alcohol Use Standard Drinks/Week Comments Yes 0 [...] as of this encounter Progress Notes * Albaro Loyd MD - 10/14/2015 1103 EST Follow up skin lesion excision scalp. Subjective: Venkata Zhao is doing well with no complaints. Objective: The sutures are removed. The wound looks good with no evidence of infection. Assessment: Venkata is doing well S/P skin lesion excision. Plan: Wound care instructions were discussed with the patient. The patient will follow-up with ENT PRN. Albaro Loyd MD 10/14/2015 documented in this encounter Plan of Treatment Not on file documented as of this encounter Visit Diagnoses Diagnosis Skin lesion- Primary Unspecified disorder of skin and subcutaneous tissue documented in this encounter Care Teams Administrative Support Assoc Relationship Specialty Start Date End Date Venkata Fine MD PCP - General 07/16/15 10/17/15 documented as of this encounter
--- OUTSIDE RECORDS SUMMARY | 2024-06-16 15:27 | XMS_ITS | Encounter Summary ---
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 Encounter Details Date Type Department Care Team (Late st Contact Info) Description 10/01/2012 10:04 EST - 10/01/2012 16:13 EST Emergency [facility] Emergency Department - [address] [place] [address] [place], [place] [address] Дмитрий Dang PAJazC [address] [phone] Emergency, MD Tristin Anxiety (Primary Dx); Insomnia Discharge Disposition: Home or Self Care Social History Tobacco Use Types Packs/Day Years Used Date Smoking Tobacco: Never Assessed Sex and Gender Information Value Date Recorded Sex Assigned at Not on file Gender Identity Not on file Sexual Orientation Not on file documented as of this encounter Last Filed Vital Signs Vital Sign Reading Time Taken Comments Blood Pressure 150/71 10/01/2012 1020 EST Pulse 80 10/01/2012 1611 EST Temperature 36.3 ??C (97.3 ??F) 10/01/2012 1020 EST Respiratory Rate 18 10/01/2012 1611 EST Oxygen Saturation 100% 10/01/2012 1611 EST Inhaled Oxygen Concentration - - Weight 124.7 kg (275 lb) 10/01/2012 1020 EST Height - - Body Mass Index - - documented in this encounter Discharge Instructions * Discharge Instructions* Дмитрий Dang - 10/01/2012 16:05 EST You will be followed up by the employee assistance program at your company Contact crisis at any time at [phone] Return here if you feel unsafe at home or if you have any thoughts of harming herself In the meantime, lorazepam can be used as prescribed for anxiety and insomnia documented in this encounter Medications at Time of Discharge Medication Sig Dispensed Refills Start Date End Date ASCORBIC ACID (VITAMIN C ORAL) Take by mouth. occasionally 10/05/2015 lorazepam (ATIVAN) 1 mg tablet Take 1 Tab by mouth 4 times daily as needed for Anxiety (insomnia). 15 Each 0 10/01/2012 08/25/2015 documented as of this encounter Ordered Prescriptions Prescription Sig Dispensed Refills Start Date End Da te lorazepam (ATIVAN) 1 mg tablet Take 1 Tab by mouth 4 times daily as needed for Anxiety (insomnia). 15 Each 0 10/01/2012 08/25/2015 documented in this encounter Discharge Disposition Disposition Code Departure Means Destination Comment s Home or Self Care Car Home Pt sitting on chair with coat on at time of dischage, willing to allow pulse check documented in this encounter ED Notes * Adriane Ewing - 10/01/2012 1500 EST Crisis in to see patient at this time * Дмитрий Dang - 10/01/2012 1337 EST DOS: 10/01/2012 Chief Complaint Patient presents with ??? 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 The patient is a 27 y.o. male who presents today with Medical Evaluation HPI Patient is a 27-year-old male with no significant past medical history who presents here for crisisevaluation. He works at [employer] and was seen yesterday by a coworker completely incoherent in the parking lot crying out loud. He was brought inside and eventually went home. He reported to work at a different facility where he works part-time today and was found by another employee in a similar condition. The patient apparently was very emotional, seemed disoriented, and was a bit incoherent. He was brought here for evaluation with someone who works for employee assistance at his job. They report to me that the patient has had very little sleep over the past 2 weeks. [place]ina brigette tell me that he recently flunked out of college and has had a history of DUI. However they notehim to be someone who wants help with his psychiatric condition and they do not report any history of violence. The patient himself seems very dissociative and confused. He cannot tell me exactly whyhe is here Review of Systems Constitutional: Negative for fever and chills. HENT: Negative for neck stiffness. Eyes: Negative for visual disturbance. Respiratory: Negative for shortness of breath. Cardiovascular: Negative for chest pain. Gastrointestinal: Negative for abdominal pain. Genitourinary: Negative for dysuria. Musculoskeletal: Negative for back pain. Skin: Negative for rash. Neurological: Negative for headaches. Psychiatric/Behavioral: Positive for confusion, disturbed wake/sleep cycle (insomnia for the past 2weeks) and decreased concentration. Negative for suicidal ideas, behavioral problems and agitation.The patient is nervous/anxious. All other systems reviewed and are negative. History reviewed. No pertinent past medical history. History reviewed. No pertinent past surgical history. No Known Allergies History Substance Use Topics ??? Smoking status: Not on file ??? Smokeless tobacco: Not on file ??? Alcohol Use: Not on file No family history on file. Vital Signs Temp: 36.3 ??C (97.3 ??F) Temp src: Tympanic Pulse: 80 Resp: 18 SpO2: 100 % SpCO: 2 % BP: 150/71 mmHg BP Device: BP Machine Patient Position: Sitting BP Cuff Location: Right arm O2 Device: None (Room air) Physical Exam Nursing note and vitals reviewed. Constitutional: He is oriented to person, place, and time. He appears well- developed and well-nourished. Poorly cooperative. Seems confused about why he is here HENT: Head: Normocephalic and atraumatic. Neck: Normal range of motion. Neck supple. No tracheal deviation present. Cardiovascular: Normal rate, regular rhythm and normal heart sounds. Pulmonary/Chest: Effort normal and breath sounds normal. No respiratory distress. Abdominal: Obese abdomen Neurological: He is alert and oriented to person, place, and time. He has normal strength. He is not disoriented. No sensory deficit. Skin: Skin is warm and dry. No rash noted. Psychiatric: Tangential thought process with racing thoughts. Anxious Radiology orders: None Procedures ED Course: A medical screening exam was performed. Patient presenting with anxiousness, had an apparent episode this morning where he was incoherent at work. 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 Initially the patient was confused and did not know why he was here, then became a bit agitated stating that he just wanted to leave. He adamantly de nied that he was suicidal and stated that he felt safe at home Labs were performed showing no abnormalities and a urine toxicology was performed given his historyof alcohol and marijuana use, this was negative. Discussed case with crisis who will see the patient Crisis has seen the patient, they have discussed the case with the psychiatric resident, the patient is not willing to come into the hospital, does not meet criteria for EE, crisis also has spoken directly to social problems specialist from [facility], plan will be to send him out with lorazepam which was the recommended medicine for anxiousness and insomnia by the psychiatric resident. He [facility] his job but can be discharged home in good condition at this time Disposition: Discharged The patient's pain was managed to an adequate level weighing risk vs. benefit of further medications. Upon departure from the Emergency Department, the patient's pain was 0 on a zero to ten scale. Condition at departure from the Emergency Department: Good Discharge Prescriptions New Prescriptions LORAZEPAM (ATIVAN) 1 MG TABLET Take 1 Tab by mouth 4 times daily as needed for Anxiety (insomnia). MDM Number of Diagnoses or Management Options Diagnosis management comments: 3 Final diagnoses: Anxiety Insomnia PCP: No PCP Joseph Garcia was available for supervision. 10/01/2012 18:47 * Debra Pavon RN - 10/01/2012 1320 EST castables worker in with patient. * Rachel Pendleton - 10/01/2012 1231 EST Pt in room resting on stretcher, Nursing communicated to pt that he needs to provide a Urine sample. Pt stated that he understood,.Nursing provided water, will follow up with sample. * Beni Chacon RN - 10/01/2012 1207 EST Pt laying on stretcher with hand over his eyes, updated pt on need for blood work. At first pt refused, states I was so stupid, I acted that way and now I don't have a job. Explained to pt that he did not get fired but that he was brought here to get check out. Explained reason for blood work, pt states oh yeah, I have a history of thyroid problems in my family. Pt agreeable to blood work. Pt understands crisis is OTW. Dimmed lights per pt request. * Beni Chacon RN - 10/01/2012 1207 EST Blood drawn via butterfly needle per protocol, tiger and purple tube(s) sent to lab per order. documented in this encounter Miscellaneous Notes * Scanned Note-Null - [employer] PLANT MANAGER, SCAN 2 - 10/14/2012 0804 EST * Scanned Note-Null - [employer] MANAGER, SCAN 2 - 10/10/2012 0745 EST * Scanned Note-Null - [employer] MANAGER, SCAN 2 - 10/08/2012 0831 EST documented in this encounter Plan of Treatment Not on file documented as of this encounter Procedures Procedure Name Priority Date/Time Associated Diagnosis Comments DRUG SCREEN 6 STAT 10/01/2012 12:39 EST DIFFERENTIAL Routine 10/01/2012 11:35 EST COMPLETE BLOOD COUNT Routine 10/01/2012 11:35 EST COMPLETE BLOOD COUNT AND DIFFERENTIAL STAT 10/01/2012 11:35 EST TSH STAT 10/01/2012 11:35 EST COMPREHENSIVE METABOLIC PANEL (CMP) STAT 10/01/2012 11:35 EST documented in this encounter Results * DRUG SCREEN 6 (10/01/2012 12:39 EST) Amphetamine Screen, Urine Negative screen. [facility] Comment: Confirmation testing available upon request. Suitable for medical purposes only. Will not detect all drugs within class. Cutoff = 1000 ng/ml Barbiturate Screen, Urine Negative screen. [facility] Comment: Confirmation testing available upon request. Suitable for medical purposes only. Will not detect all drugs within class. Cutoff = 300 ng/ml Benzodiazepine Screen, Urine Negative screen. [facility] Comment: Confirmation testing available upon request. Suitable for medical purposes only. Will not detect all drugs within class. Assay less sensitive to Lorazepam and metabolites. Cutoff = 200 ng/ml Cannabinoid Scrn, Ur Negative screen. [facility] Comment: Confirmation testing available upon request. Suitable for medical purposes only. Will not detect all drugs within class. Cutoff = 50 ng/ml Cocaine Metabolites, Ur Negative screen. [facility] Comment: Confirmation testing available upon request. Suitable for medical purposes only. Will not detect all drugs within class. Cutoff = 300 ng/ml Opiate Scrn, Ur Negative screen. [facility] Comment: Confirmation testing available upon request. Suitable for medical purposes only. Will not detect all drugs within class. Cutoff = 300 ng/ml Assay less sensitive to oxycodone and metabolites. Assay does not detect methadone. Urine specimen (specimen) URINE / Unknown 10/01/2012 12:39 EST 10/01/2012 12:49 EST Дмитрий A Laurence ANGUIANO URINALYSIS ORDERABL ES Performing Organization Address [facility] Co de Phone Number [facility] [address] [place] [address] * (ABNORMAL) DIFFERENTIAL (10/01/2012 11:35 EST) % Neutrophils 77.9 45.5 - 79.7 % [facility] % Lymphocytes 16.5 15.0 - 46.8 % [facility] % Monocytes 4.3 1.8 - 12.0 % [facility] % Eosinophils 0.1(L) 0.6 - 6.9 % [facility] % Basophils 1.2 0.2 - 1.4 % [facility] ABS Neutrophils 5.57 2.20 - 8.85 K/cmm [facility] ABS Lymphs 1.18 1.09 - 3.30 K/cmm [facility] ABS Monocytes 0.31 0.1 - 0.8 K/cmm [facility] ABS Eosinophils 0.01(L) 0.03 - 0.61 K/cmm [facility] ABS Basophils 0.09 0.01 - 0.11 K/cmm [facility] Type of Diff: Automated [facility] 10/01/2012 11:3 5 EST 10/01/2012 12:08 EST Дмитрий A Laurence ANGUIANO HEMATOLOGY & PF4 OR DERABLES Performing Organization Address [facility] Co de Phone Number [facility] [address] [place] [address] * HEMAGRAM (10/01/2012 11:35 EST) WBC 7.15 4.0 - 10.4 K/cmm [facility] RBC 5.34 4.36 - 5.78 M/cmm [facility] Hemoglobin 15.9 13.8 - 17.3 gm/dl [facility] HCT 45.0 39.5 - 50.2 % [facility] MCV 84 81 - 95 fl [facility] MCH 29.7 27.6 - 33.0 pg [facility] MCHC 35.2 32.8 - 36.4 gm/dl [facility] PLT 180 141 - 320 K/cmm [facility] RDW-CV 12.9 11.8 - 14.1 % [facility] 10/01/2012 11:3 5 EST 10/01/2012 12:08 EST Дмитрий Dang PA-C HEMATOLOGY & PF4 OR DERABLES Performing Organization Address [facility] de Phone Number [facility] [address] [place] [address] * TSH (10/01/2012 11:35 EST) Pathologist [facility] TSH 0.65 0.35 - 5.00 uIU/ml [facility] Blood specimen (specimen) 10/01/2012 11:35 EST 10/01/2012 12:08 EST Дмитрий Dang PA-C CHEMISTRY & BLOOD G ORDERABLES Performing Organization Address [facility] Phone Number [facility] [address] [place] [address] * (ABNORMAL) COMPREHENSIVE METABOLIC PANEL (CMP) (10/01/2012 11:35 EST) Pathologist [facility] Potassium 4.4 3.5 - 5.0 mEq/L [facility] Sodium 137 136 - 145 mEq/L [facility] Chloride 102 96 - 110 mEq/L [facility] CO2 21(L) 24 - 32 mEq/L [facility] Total Alkaline Phosphatase 73 38 - 126 U/L [facility] Bilirubin, Total 2.5(H) 0.2 - 1.3 mg/dl [facility] AST 33 15 - 46 U/L [facility] ALT 37 21 - 72 U/L [facility] Albumin 4.9 3.4 - 4.9 g/dl [facility] Total Protein 7.8 6.5 - 8.3 g/dl [facility] Creatinine 0.73 0.66 - 1.25 mg/dl [facility] GFR, Calculated >60 >60 ml/min/1.7 3m2 [facility] BUN 11 10 - 26 mg/dl [facility] Calcium 9.6 8.5 - 10.5 mg/dl [facility] Calculated Calcium 9.1 8.5 - 10.5 mg/dl [facility] Glucose, Serum 97 70 - 100 mg/dl [facility] Fasting? Unknown [facility] Blood specimen (specimen) 10/01/2012 11:35 EST 10/01/2012 12:08 EST Дмитрий Dang PA-C CHEMISTRY & BLOOD G ORDERABLES [facility] [address] [place] [address] documented in this encounter Visit Diagnoses Diagnosis Anxiety- Primary Anxiety state, unspecified Insomnia Insomnia, unspecified documented in this encounter Care Teams Coffee Grinder Relationship Specialty Start Date End Date None, Provider PCP - General 10/01/12 05/11/15 documented as of this encounter
--- OUTSIDE RECORDS SUMMARY | 2024-06-16 15:27 | XMS_ITS | Encounter Summary ---
Author Organization [facility] Address [address] [place] [address] Care Team Providers Care Internal Corrosion Specialist Name Role Phone Unavailable Primary Care Provider Unavailabl e Encounter Details Date Type Department Care Team (Late st Contact Info) Description 02/27/2008 13:58 EDT Hospital Encounter [address] [address] Jaky Childers MD [address] [place] [phone] Keily Peres MD Social History Tobacco Use Types Packs/Day Years [...] 7:59 EST documented as of this encounter Plan of [...] learn more about your health please visit: [email or web address] [facility] [email or web address].aspx documented as of this encounter Visit Diagnoses Not on filedocumented in this encounter
--- OUTSIDE RECORDS SUMMARY | 2024-06-16 15:27 | XMS_ITS | Encounter Summary ---
Author Organization [facility] Address [address] [place] [address] Care Team Providers Care Marine Diver Name Role Phone Venkata Fine MD Primary Care Pro vider Reason for Visit * Reason Comments Cyst top of head left jessenia e symptoms approx 2 years no sensation. annoying. noticing more with thinning hair. Encounter Details Date Type Department Care Team (Late st Contact Info) Description 08/25/2015 10:30 EST Office Visit [facility] ENT - [address] [address] Unknown, Provider, Albaro Loyd MD [address] [place] [phone] Scalp cyst (Primary Dx) Social History Tobacco Use Types [...] Sign Reading Time Taken Comments Blood Pressure 135/96 08/25/2015 1033 EST Pulse 72 08/25/2015 1033 EST Temperature - - Respiratory Rate - - Oxygen Saturation - - Inhaled Oxygen Concentration - - Weight 158.8 kg (350 lb) 08/25/2015 1033 EST Height 182.9 cm (6') 08/25/2015 1033 EST Body Mass Index 47.47 08/25/2015 1033 EST documented in this encounter Functional Status [...] Progress Notes * Albaro Loyd MD - 08/25/2015 1044 EST Venkata Fine Dear Dr Fine: This is a consult for evaluation of a scalp cyst. History of Present Illness: This is a 30-year-old male with a 2-year history of a cystic lesion on the left parietal scalp described as annoying but otherwise asymptomatic. No history of infection. No pain or drainage. The patient is requesting excision. Past Medical History: Significant for allergies. No prior surgeries. Family history is noncontributory. Social History: Significant for secondary smoke exposure. He has drug allergies to LATEX, RUBBER. No known drug allergies. Current Medications: Include vitamin C. Review of systems: Significant for possible sleep apnea. Otherwise, negative for a complete review of all systems. Physical Exam: General: Well-developed, well-nourished, alert, oriented and cooperative adult male in no acute distress. Normal voice. Vital signs: Height 72 inches, weight 350. Blood pressure 135/96, pulse 72. No reportable pain. The patient's skin exam is significant for a 3 cm raised, round, mobile cystic lesion on the left parietal scalp. No other lesions are noted. Facial strength is symmetric. Impression: Pilar cyst of the scalp. Plan: Excision under local anesthesia. This will be scheduled as an outpatient office procedure. The patient understands and agrees with the current plan. Sincerely, documented in this encounter Plan of Treatment Not on file documented as of this encounter Visit Diagnoses Diagnosis Scalp cyst- Primary Sebaceous cyst documented in this encounter Discontinued Medications Medication Sig Discontinue Reason Start Date End Da te lorazepam (ATIVAN) 1 mg tablet Take 1 Tab by mouth 4 times daily as needed for Anxiety (insomnia). 10/01/2012 08/25/2015 documented as of this encounter Care Teams Marine Diver Relationship Specialty Start Date End Date Venkata Fine MD PCP - General 07/16/15 10/17/15 documented as of this encounter
--- OUTSIDE RECORDS SUMMARY | 2024-06-16 15:27 | XMS_ITS | Encounter Summary ---
Author Organization [facility] Address [address] [place] [address] Care Team Providers Care Actuarial Associate Name Role Phone Unavailable Primary Care Provider Unavailabl e Encounter Details Date Type Department Care Team (Late st Contact Info) Description 10/06/2009 Abstract Used for ABSTRACTING Data [phone] Omega Rose MD [address] [place] [phone] Allergic rhinitis Social History Tobacco Use Types Packs/Day Years Used Date Smoking Tobacco: Never Assessed Sex and Gender Information Value Date Recorded Sex Assigned at Not on file Gender Identity Not on file Sexual Orientation Not on file documented as of this encounter Plan of Treatment Not on file documented as of this encounter Visit Diagnoses Diagnosis Allergic rhinitis Allergic rhinitis, cause unspecified documented in this encounter Historical Medications * This list may reflect changes made after this encounter. Medication Sig Dispensed Refills Start Date End Date ASCORBIC ACID (VITAMIN C ORAL) Take by mouth. occasionally 10/05/2015 added in this encounter
--- OUTSIDE RECORDS SUMMARY | 2024-06-16 15:27 | XMS_ITS | Encounter Summary ---
Author Organization [facility] Address [address] [place] [address] Care Team Providers Care Dental Officer Name Role Phone Venkata Fine MD Primary Care Pro vider Reason for Referral * (Routine/Next Available) - Closed Specialty Diagnoses / Procedures Referred By Ada sandhu Referred To Contact Diagnoses Hypersomnia Sleep-wake schedule disorder, irregular sleep-wake type Procedures OUT OF CENTER SLEEP TEST (HOME CARDIOPULMONARY SLEEP STUDY) [address] [place] [address] Referral ID Status Reason Start Date Expiration Date Visits Re quested Visits Authorized [id number] Closed 10/05/2015 1 1 Reason for Visit * Reason Comments New Patient Visit Encounter Details Date Type Department Care Team (Late st Contact Info) Description 10/05/2015 10:00 EST Office Visit [facility] Sleep Program - [address] [place] [address] Hypersomnia (Primary Dx); Sleep-wake schedule disorder, irregular sleep-wake type Social History Tobacco Use Types Packs/Day [...] Sign Reading Time Taken Comments Blood Pressure 134/92 10/05/2015 0951 EST Pulse 80 10/05/2015 0951 EST Temperature - - Respiratory Rate 16 10/05/2015 0951 EST Oxygen Saturation 98% 10/05/2015 0951 EST Inhaled Oxygen Concentration - - Weight 166.5 kg (367 lb) 10/05/2015 0951 EST Height 182.9 cm (6') 10/05/2015 0951 EST Body Mass Index 49.77 10/05/2015 0951 EST documented in this encounter Functional Status [...] as of this encounter Progress Notes * Karen Vázquez MD - 10/05/2015 1000 EST [facility] Sleep Program Name: Venkata Zhao Date: 10/07/2015 Referring M.D.: Chastity Henning NP Other M.D.s: Venkata Fine Informant: patient Cc: snoring, restlessness, frequent wake ups, need for more sleep than usual, falling asleep at inappropriate times HPI: Venkata Zhao is a 30-year-old man who presents for evaluation of excessive daytime sleepiness and snoring, at the request of Chastity Henning NP. He states that he had an episode at work, approximately 2 years ago, where he had a dissociative state, behaving unusually, paranoid ; ideas that happened in science fiction were actually happening. He was hospitalized, and was given the diagnosisof psychosis NOS. 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 Presently, he is not working. He has never had another episode of what he described above. SLEEP HISTORY: Bedtime: 6:30 / 3-4 a.m. Sleep Latency: immediately or it can take a while Awakenings: Get up once and go to the bathroom --sometimes able to go back to sleep, other times not (not sure why) Rise: 5 hours after he goes to bed Awakens feeling: depends Naps: Yes - not every day; frequently dozes off 1/2 hour or 45 minutes) Sleep Meds: no Stimulant Meds: no Sleep Position: Right side Snoring: Yes Gasping: Yes Witnessed Apneas: Yes RLS symptoms: Narcolepsy: Cataplexy: no Hypnagogic Hallucinations: no Sleep Paralysis: no Habits: Caffeine: Typically none, but if there is something he has to stay awake for then he will EtOH: Not frequently Tobacco: no Drugs: no Exercise: Walk the dog 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 No pertinent past medical history. History reviewed. No pertinent past surgical history. History reviewed. No pertinent family history. No outpatient prescriptions have been marked as taking for the 10/05/15 encounter (Office Visit) with Karen Vázquez MD. Allergies Allergen Reactions ??? Latex, Natural Rubber Review of Systems: System Yes No Comments Constitutional x At or near highest weight ever; dizzy spells--infrequent, but sometimes after waking up , after not being able to sleep Eyes x ENT x Pulmonary x Cardiovascular x Gastrointestinal x Genitourinary x Occasional ED Neurological x Rheumatological x Vascular x Endocrine x Hematologic/Lymph x Dermatological x Dry skin on hands, itchiness Psychiatric x Musculoskeletal x Integument/breast x Allergic/Immunologic x Physical Exam: BP 134/92 mmHg Pulse 80 Resp 16 Ht 182.9 cm (72) Wt 166.47 kg (367 lb) BMI 49.76 kg/m2 SpO2 98% BMI AND WEIGHT 10/01/2012 08/25/2015 10/05/2015 Weight (lb) 275 lb 350 lb 367 lb Weight (Kg) 124.739 kg 158.759 kg 166.47 kg Body Mass Index - 47.46 49.76 Neck 19.5 Lorenz Tongue Position: 4 Tonsils: 3 Teeth: Adequate dentition Heart: RRR, normal S1, S2 Lungs: clear to auscultation bilaterally Extremities: no lower extremity edema Assessment/Plan: Venkata Zhao is a 30-year-old man who presents for evaluation of excessive daytime sleepiness and snoring. His symptoms are concerning for obstructive sleep apnea. The mechanism of sleep apnea, factors which influence it, and methods of evaluation and treatment were discussed. Based on his insurance criteria, a home sleep test will be obtained. I will follow-up with him after the study is reviewed, to discuss results, and options for treatment. 1. Avoidance of drowsy driving and countermeasures discussed. 2. Excessive weight and its impact on the severity of NIA discussed. 3. Untreated NIA and the increased risk of cardiovascular events discussed. 4. Good sleep hygiene and the importance of consistent sleep and wake times, as well as avoiding orlimiting the use of caffeine/EtOH were discussed. 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 occasionally Patient Stopped Taking 10/05/2015 documented as of this encounter Care Teams Dental Officer Relationship Specialty Start Date End Date Venkata Fine MD PCP - General 07/16/15 10/17/15 documented as of this encounter
--- OUTSIDE RECORDS SUMMARY | 2024-06-16 15:27 | XMS_ITS | Encounter Summary ---
Author Organization [facility] Address [address] [place] [address] Care Team Providers Care Compliance Examiner Name Role Phone Tremaine Shankar MD Primary Care Provider + Brittaney Gutiérrez MD PhD Unavailable [phone] Reason for Visit * Reason Comments Follow-up follow up Encounter Details Date Type Department Care Team (Late st Contact Info) Description 11/09/2015 12:00 EST Office Visit [facility] Sleep Program - [address] [place] [address] [place] [address] [address] [place] [address] NIA (obstructive sleep apnea) (Primary Dx) Discharge Disposition: Auto Discharge Social [...] Sign Reading Time Taken Comments Blood Pressure 134/90 11/09/2015 1207 EST Pulse 82 11/09/2015 1207 EST Temperature - - Respiratory Rate 18 11/09/2015 1207 EST Oxygen Saturation 98% 11/09/2015 1207 EST Inhaled Oxygen Concentration - - Weight 165.1 kg (364 lb) 11/09/2015 1207 EST Height 180.3 cm (5' 11) 11/09/2015 1207 EST Body Mass Index 50.77 11/09/2015 1207 EST documented in this encounter [...] as of this encounter Discharge Diagnoses Diagnosis G47.33 Obstructive sleep apnea (adult) (pediatric)-G47.33[ICD-10-CM] documented in this encounter Discharge Disposition Disposition Code Departure Means Destination Auto Discharge documented in this encounter Progress Notes * Karen Vázquez MD - 11/09/2015 1210 EST Name: Venkata Zhao : 1985 Date of Visit: 11/09/2015 HPI: Venkata Zhao fawad 30 year old M who presents for follow up to review his response to a 1 week loan of auto CPAP 5-20 cm H2O. He preferred the P10 (medium) over the Reshma View, but felt that havingan FFM would be good for mouth dryness or if he was congested. In the short time he used the machine, he felt no daytime sleepiness, and slept better (save for one night when he did not fill his humidifier fully). Compliance Report November 02, 2014 to November 07, 2015 100% usage greater than or equal to 4 hours Average usage: 7 hours and 7 minutes AHI: 0.4 /hr Median pressure: 6.8 cm H2O; 95th percentile: 9.8 cm H2O; Max: 11 cm H2O Median leak: 4.4 LPM; 95th percentile: 11.2 LPM Home Sleep Apnea Test: Severe Obstructive Sleep Apnea (NIA). ERICK 31.0 (AASM 2012). ERICK 20.3 (AASM 2007). Central apneas: 21 Avg 02 Sat: 95 %; Roberto Carlos 02 Sat: 90 %; Time with 02 Sat < 88%: 1 minutes. Outpatient Prescriptions Marked as Taking for the 11/09/15 encounter (Office Visit) with Karen Vázquez MD Medication Sig Dispense Refill ??? clotrimazole (LOTRIMIN) 1 % cream Apply to affected area twice daily 15 g 0 Allergies Allergen Reactions ??? Latex, Natural Rubber ROS: A ten point ROS was performed and was negative except for pertinent positives in the HPI. EXAM: Filed Vitals: 11/09/15 1207 BP: 134/90 Pulse: 82 Resp: 18 Height: 180.3 cm (71) Weight: 165.109 kg (364 lb) SpO2: 98% A/P: Venkata Zaho is a 30-year-old man with a history of severe obstructive sleep apnea who presentsfor follow-up to review his response to a 1 week trial of auto CPAP at home. The compliance report shows excellent usage of his machine, as well as excellent control of his sleep apnea, for the 60s that he used it. He prefers the P 10 nasal pillow mask, so that will be ordered along with auto CPAP 5-15 cm H2O. Rx to [facility] Follow up in 2 mos. I spent a total of 20 minutes in face to face time with this patient and > 50 percent of that time was spent in counseling and coordination of care as described in the progress note. Karen Vázquez MD 11/09/2015 12:33 documented in this encounter Plan of Treatment [...] more about your health please visit: [email or web address]/medcenter/Pages/Wellness-Resources/Ioshpazel-Gfzvim-Qx [facility] e-Center.aspx documented as of this encounter Visit Diagnoses Diagnosis NIA (obstructive sleep apnea)- Primary Obstructive sleep apnea (adult) (pediatric) documented in this encounter Orders Equipment Count Last Ordered Date First Orde red Date CPAP/BIPAP MACHINE ORDER 1 11/09/2015 documented in this encounter Care Teams Compliance Examiner Relationship Specialty Start Date End Date Tremaine Shankar MD 1 [facility] [address] [place] [phone] PCP - General 10/18/15 06/21/18 Brittaney Gutiérrez MD PhD [address] [facility] 2 [place] [phone] PCP - Alternate 10/21/15 02/12/18 documented as of this encounter
--- OUTSIDE RECORDS SUMMARY | 2024-06-16 15:27 | XMS_ITS | Encounter Summary ---
Author Organization [facility] Address [address] [place] [address] Care Team Providers Care Convention Worker Name Role Phone Tremaine Shankar MD Primary Care Provider + Brittaney Gutiérrez MD PhD Unavailable [phone] Reason for Visit * Reason Onset Date Comments Appointment Related 12/17/2015 Encounter Details Date Type Department Care Team (Late st Contact Info) Description 12/17/[address], [address] [place], [place] [id number] [facility], Admin Appointment Related Social History Tobacco [...] No 08/25/2015 documented as of this encounter Miscellaneous Notes * Telephone Encounter - HennareidZhanna - 12/17/2015 1214 EDT Patient called to say he's selected [facility] for his fitness. [facility] admin emailed his referral, they should contact him within a week. documented in this encounter Plan of Treatment [...] about your health please visit: https://www.[facility].org/medcenter/Pages/Wellness-Resources/Sqaregrck-Zuykfh-Wd [facility] e-Center.aspx documented as of this encounter Visit Diagnoses Not on filedocumented in this encounter Care Teams Convention Worker Relationship Specialty Start Date End Date Tremaine Shankar MD [address] [place] [address] 1 [place] [address] PCP - General 10/18/15 06/21/18 Brittaney Gutiérrez MD PhD [address] [place] [address] 2 [place] [address] PCP - Alternate 10/21/15 02/12/18 documented as of this encounter
--- OUTSIDE RECORDS SUMMARY | 2024-06-16 15:27 | XMS_ITS | Encounter Summary ---
Author Organization [facility] Address [address] [place] [address] Care Team Providers Care Perforator Name Role Phone Tremaine Shankar MD Primary Care Provider + Brittaney Gutiérrez MD PhD Unavailable [phone] Reason for Referral * (Routine/Next Available) - Closed Specialty Diagnoses / Procedures Referred By Contac t Referred To Contact Diagnoses NIA (obstructive sleep apnea) Procedures HOME PAP TITRATION (MASK FIT AND LOAN PAP EQUIPMENT FOR 1 WEEK) [address] [place] [address] Referral ID Status Reason Start Date Expiration Date Visits Re quested Visits Authorized [id number] Closed 10/27/2015 1 1 Reason for Visit * Reason Comments Follow-up follow up Encounter Details Date Type Department Care Team (Late st Contact Info) Description 10/27/2015 8:20 EST Office Visit [facility] Sleep Program - [address] [place] [address] [place] [address] [place] [address] NIA (obstructive sleep apnea) (Primary [...] Sign Reading Time Taken Comments Blood Pressure 118/84 10/27/2015 0815 EST Pulse 71 10/27/2015 0815 EST Temperature - - Respiratory Rate 16 10/27/2015 0815 EST Oxygen Saturation 98% 10/27/2015 0815 EST Inhaled Oxygen Concentration - - Weight 167.4 kg (369 lb) 10/27/2015 0815 EST Height 182.9 cm (6') 10/27/2015 0815 EST Body Mass Index 50.05 10/27/2015 0815 EST documented in this encounter Functional Status [...] Progress Notes * Karen Vázquez MD - 10/27/2015 0837 EST Name: Venkata Zhao : 1985 Date of Visit: 10/27/2015 HPI: Mr. Zhao is a 30 year old man who returns for a follow up to discuss the results of home apnea testing. The following results were discussed in detail with the patient. Home Sleep Apnea Test: Severe Obstructive Sleep Apnea (NIA). ERICK 31.0 (AASM 2012). ERICK 20.3 (AASM 2007). Central apneas: 21 Avg 02 Sat: 95 %; Roberto Carlos 02 Sat: 90 %; Time with 02 Sat < 88%: 1 minutes. No interval changes in his health are reported today. The past medical, surgical and social histories are reviewed in the EMR. No outpatient prescriptions have been marked as taking for the 10/27/15 encounter (Office Visit) withKaren Vázquez MD. Allergies Allergen Reactions ??? Latex, Natural Rubber ROS: A ten point ROS was performed and was negative except for pertinent positives in the HPI. EXAM: Filed Vitals: 10/27/15814 BP: 118/84 Pulse: 71 Resp: 16 Height: 182.9 cm (72) Weight: 167.377 kg (369 lb) SpO2: 98% Heart: Regular rate and rhythm Lungs: Clear to auscultation A/P: This is a 30-year-old man who was initially evaluated for excessive daytime sleepiness and snoring. The home sleep apnea Test is significant for severe obstructive sleep apnea with ERICK of 31. Different treatment options were discussed with the patient. He is in favor of trying CPAP therapy fortreatment of obstructive sleep apnea. Based on patient's insurance Guidelines we will set up the patient for home PAP titration. We will make an appointment for the patient for a mask fit and loan the PAP equipment for a week. He will follow-up with her physician when he returns the equipment. Lit Gomez MD 10/27/2015 16:27 Attestation statement: I saw and examined the patient with the resident/fellow at the time of the visit. I agree with the findings and plan of care documented in the resident's/fellow's note. Karen Vázquez MD 10/29/2015 14:56 documented in this encounter Plan of Treatment Scheduled Orders Name Type Priority Associated Diagnoses Orde r Schedule HOME PAP TITRATION (MASK FIT AND LOAN PAP EQUIPMENT FOR 1 WEEK) Sleep Center Routine NIA (obstructive sleep apnea) Ordered: 10/27/2015 documented as of this encounter Goals Goal [...] about your health please visit: https://[facility].org/medcenter/Pages/Wellness-Resources/Getffgbug-Dvywtj-Mp [facility] e-Center.aspx documented as of this encounter Visit Diagnoses Diagnosis INA (obstructive sleep apnea)- Primary Obstructive sleep apnea (adult) (pediatric) documented in this encounter Care Teams Perforator Relationship Specialty Start Date End Date Tremaine Shankar MD 1 [facility] Level [address] [place] [phone] PCP - General 10/18/15 06/21/18 Brittaney Gutiérrez MD PhD 111 [facility] 2 [place] [phone] PCP - Alternate 10/21/15 02/12/18 documented as of this encounter
--- OUTSIDE RECORDS SUMMARY | 2024-06-16 15:27 | XMS_ITS | Encounter Summary ---
Author Organization [facility] Address [address] [place] [address] Care Team Providers Care Manager Of Revenue Name Role Phone Unavailable Primary Care Provider Unavailabl e Encounter Details Date Type Department Care Team (Late st Contact Info) Description 02/27/2008 Before PRISM Converted Visit (Maple) [facility] - Maple conversion [address] [place] [address] Lemuel Flanagan MD [address] [place] [address] [address] [place] [address] Social History Tobacco Use Types Packs/Day Years Used Date Smoking Tobacco: Never Assessed Sex and Gender Information Value Date Recorded Sex Assigned at Not on file Gender Identity Not on file Sexual Orientation Not on file documented as of this encounter Progress Notes * Lemuel Flanagan MD - 06/18/2009 0016 EDT Primary Care Internal Medicine [address] [place], [place] [phone] PROGRESS/FOLLOWUP NOTE - 02/27/2008 REASON FOR VISIT Sore throat and productive cough. HISTORY OF PRESENT ILLNESS Venkata is a 23-year-old male with no significant past medical history other than for seasonal allergies and allergies to household animals, including dogs, was presenting today to clinic with a 2- to3-day history of sore throat and productive cough. Venkata states that he initially developed a scratchy throat about 2 days ago which was shortly followed by a cough productive of clear sputum. He has not had any hemoptysis and denies fever, chills. He feels somewhat weak and has noted that the coughing is more pronounced in the evening when he lies down and has been somewhat of a detriment to him getting a good night's sleep. He had 1 particular episode last night where he coughed profusely and was quite short of breath. He was somewhat concerned with this episode and decided to come to clinic today to make sure that he was stable for a planned trip to [place] next week. He denies any headache, sinus tenderness, ear pain or abdominal tenderness. He has not tried any uogn-pmv-gtpwypj medications at this point. ALLERGIES The patient states that he has not really had a flare this year to date and although he lives with an animal (dog) he has not had any symptoms of what he would qualify as allergies. No known drug allergies. REVIEW OF SYSTEMS On the 14-point review of systems the only pertinent findings are described in the history of present illness. MEDICATIONS The patient is currently on no medications. SOCIAL HISTORY As per [facility] chart, the patient confirms being tobacco-free. He does admit to occasional marijuana use and does drink alcohol on a social basis. OBJECTIVE General appearance: Reveals a very pleasant male in no apparent distress. Vital signs: 97.8, Pulse 80, regular, breathing 16, blood pressure 116/86, O2 sat 98% on room air. Weight today is 270.5. Head and neck examination: Reveals extraocular movements that are intact. Sclerae are anicteri c. No conjunctival hyperemia is noted. Ear exam reveals serous exudate retrotympanically with no evidence of otitis media. Oropharynx is free of lesions. Tonsillar enlargement is noted but there is no purulent discharge or soft palate petechiae. Absence of sinus tenderness is noted. Neck examination reveals absence of palpable lymphadenopathy. Pulmonary auscultation:Normal breath sounds through the posterior and anterior lung marroquin. Cardiac auscultation reveals a regular rate and rhythm with no appreciable murmurs, rubs or thrills. Abdominal exam reveals mild central obesity with nontender, n ondistended abdomen, no palpable hepatosplenomegaly. Bowel sounds are present. Lower extremity edema is absent on exam today. Cutaneous examination reveals absence of rash. IMPRESSION Venkata Zaho is a healthy 23-year-old male who presents today with a URI. As explained to Venkata,thepathogen at cause here is likely a virus. Given that the symptomatology has been ongoing for 3 days and that Venkata feels he is getting clinically better, the decision to treat conservatively withtime, plenty of fluids and upey-yll-wpqipjf decongestantswas negotiated. Should the patient not improve within a 5-day period, he was instructed to give the clinic a call and at that point the contingency would be to prescribe an antibiotic like azithromycin. PLAN 1. Conservative management of viral upper respiratory infection. 2. Drink plenty of fluids. 3. Use of oral ltuz-cfj-vavaqrj decongestants like Sudafed, Tylenol Cold and Sinus. 4. Avoidance of tobacco-containing products. 5. Call or return to clinic if no improvement within 5 days. Contingency at that point would be an antibiotic to cover for bacterial pathogens. Please note that the patient was reviewed with Dr. Lemuel Flanagan. PRECEPTOR DR LEMUEL FLANAGAN NOTE I discussed the case with Dr. Peres at the time of Venkata's visit on 02/27/2008. He comes in witha few days of cough, worse at night, and mild sore throat. He has not had shortness of breath or wheezing. He does not use tobacco but occasionally uses cannabis. He is going to a music festival nextweek and wanted to make sure he was okay before traveling. Dr. Peres states there is no evidence of otitis media, sinusitis, and his oropharynx is benign on exam. His lungs are clear, per her report. She feels, and I agree, that this seems to be a viral infection and recommendedhe try some mjeo-tzd-hqntwax antihistamines and decongestants. Should he still feel ill next week, he can certainly call the clinic to touch base on what the next step should be. Signed by Lemuel Flanagan MD 03/12/2008 09:53 Lemuel Flanagan MD - Lemuel Flanagan MD - ALICIA Job ID: [id number] Doc ID: [id number] cc: documented in this encounter Plan of Treatment Not on file documented as of this encounter Visit Diagnoses Not on filedocumented in this encounter
--- OUTSIDE RECORDS SUMMARY | 2024-06-16 15:27 | XMS_ITS | Encounter Summary ---
Author Organization [facility] Address [address] [place] [address] Care Team Providers Care Vice President Client Services Name Role Phone Tremaine Shankar MD Primary Care Provider + Brittaney Gutiérrez MD PhD Unavailable [phone] Encounter Details Date Type Department Care Team (Late st Contact Info) Description 10/29/2015 Phlebotomy Only [facility] [address] [place] [address] Supervisor Production Managing, Outpatient Penile ulcer (Primary Dx) Social History Tobacco Use Types [...] No 08/25/2015 documented as of this encounter Plan of [...] learn more about your health please visit: https://www.[facility].org/medcenter/Pages/Wellness-Resources/Bkchtbcls-Sfbxku-Lm sourc e-Center.aspx documented as of this encounter Procedures Procedure Name Priority Date/Time Associated Diagnosis Comments MUCOCUTANEOUS VIRUS DETECTION Routine 10/29/2015 18:00 EST Penile ulcer documented in this encounter Results * MUCOCUTANEOUS VIRUS DETECTION (10/29/2015 18:00 EST) Result No Herpes simplex virus Type 1 or Type 2 detected by PCR. 10/31/2015 10:47 EST [facility] Result (Note) Analyte Specific Reagent. This test was developed and its performance characteristics determined by Laboratory Medicine and Pathology, [facility]. This test has not been cleared [...] clinical laboratory testing. 10/31/2015 10:47 EST [facility] GENITAL STRUCTURE / Unknown 10/29/2015 18:00 EST 10/29/2015 18:34 EST Trmeaine Shankar MD MICROBIOLOGY - G ENERAL ORDERABLES [facility] [address] [place] [address] documented in this encounter Visit Diagnoses Diagnosis Penile ulcer- Primary Other specified disorder of penis documented in this encounter Care Teams Vice President Client Services Relationship Specialty Start Date End Date Tremaine Shankar MD 1 [facility] Level 1 [place] [phone] PCP - General 10/18/15 06/21/18 Brittaney Gutiérrez MD PhD 111 [facility], [facility] 2 [place] [phone] PCP - Alternate 10/21/15 02/12/18 documented as of this encounter
--- OUTSIDE RECORDS SUMMARY | 2024-06-16 15:27 | XMS_ITS | Encounter Summary ---
Author Organization [facility] Address [address] [place] [address] Care Team Providers Care Applied Psychology Chair Name Role Phone Tremaine Shankar MD Primary Care Provider + Brittaney Gutiérrez MD PhD Unavailable [phone] Encounter Details Date Type Department Care Team (Latest Contact Info) Description 10/29/2015 11:46 EST - 10/29/2015 11:47 [facility] Encounter [address] [address] Tremaine Shankar MD [address] [place] [phone] Discharge Disposition: Home or Self Care Social [...] as of this encounter Discharge Diagnoses Diagnosis N48.5 Ulcer of penis-N48.5[ICD-10-CM] documented in this encounter Discharge Disposition Disposition Code Departure Means Destination Home or Self Care documented in this encounter Plan of Treatment [...] more about your health please visit: https://www.[facility].org/medcenter/Pages/Wellness-Resources/Glrjovhrm-Ibqbiy-Gk sourc e-Center.aspx documented as of this encounter Visit Diagnoses Not on filedocumented in this encounter Care Teams Applied Psychology Chair Relationship Specialty Start Date End Date Tremaine Shankar MD [address] [place] [address] 1 [place] [phone] PCP - General 10/18/15 06/21/18 Brittaney Gutiérrez MD PhD [address] [place] [address] 2 [place] [phone] PCP - Alternate 10/21/15 02/12/18 documented as of this encounter
--- OUTSIDE RECORDS SUMMARY | 2024-06-16 15:27 | XMS_ITS | Encounter Summary ---
Author Organization [facility] Address [address] [place] [address] Care Team Providers Care Document Reviewer Name Role Phone Venkata Fine MD Primary Care Pro vider Reason for Visit * Reason Comments OCST (Out of Center Sleep Test) Encounter Details Date Type Department Care Team (Late st Contact Info) Description 10/15/2015 14:00 EST Office Visit [facility] Sleep Program - S Viv[place] [address] [place] [id number] Karen Vázquez [address] [place] [phone] Study, Hsat NIA (obstructive sleep apnea) (Primary Dx) Social [...] Progress Notes * Karen Vázquez MD - 10/25/2015 1123 EST Study Date: 10/15/2015 Name: Venkata Zhao : 1985 Study Type: Home Sleep Apnea Test Impression: * Severe Obstructive Sleep Apnea (NIA). ERICK 31.0 (AASM 2012). ERICK 20.3 (AASM 2007). Avg 02 Sat: 95 %; Roberto Carlos 02 Sat: 90 %; Time with 02 Sat < 88%: 1 minutes. The patient is scheduled to be seen at the [facility] by Dr. Karen Vázquez on October 27, 2015. documented in this encounter Plan of Treatment Not on file documented as of this encounter Procedures Procedure Name Priority Date/Time Associated Diagnosis Comments SLEEP STUDY REPORT - SCANNED 10/25/2015 11:20 EST documented in this encounter Results * SLEEP STUDY REPORT - SCANNED (10/25/2015 11:20 EST) 10/25/2015 11:2 0 EST Scan 2 Hand Crocheter PROCEDURE/MINOR WON GICAL ORDERABLES documented in this encounter Visit Diagnoses Diagnosis NIA (obstructive sleep apnea)- Primary Obstructive sleep apnea (adult) (pediatric) documented in this encounter Care Teams Document Reviewer Relationship Specialty Start Date End Date Venkata Fine MD PCP - General 07/16/15 10/17/15 documented as of this encounter
--- OUTSIDE RECORDS SUMMARY | 2024-06-16 15:27 | XMS_ITS | Encounter Summary ---
Author Organization [facility] Address [address] [place] [address] Care Team Providers Care Cardiopulmonary Supervisor Name Role Phone Tremaine Shankar MD Primary Care Provider + Brittaney Gutiérrez MD PhD Unavailable [phone] Reason for Visit * Reason Comments Nutrition Counseling * Consult (Routine/Next Available) - Specialty Report Received Specialty Diagnoses / Procedures Referred By Ada sandhu Referred To Contact Diagnoses Morbid obesity, unspecified obesity type (HCC-CMS) Tremaine Shankar MD 1 [facility] 1 [place] [address] Referral ID Status Reason Start Date Expiration Date Visits Requested Visits Authorized [id number] Specialty Report Received Specialty Services Required 10/29/2015 1 1 Encounter Details Date Type Department Care Team (Late st Contact Info) Description 11/24/2015 9:00 [facility] Community Health Team [facility] Adult Primary Care - [address] [phone] t, [facility] Social History Tobacco Use Types Packs/Day Years [...] encounter Progress Notes * Candice Villalobos - 11/24/2015 0836 EST Community Health Team Health Mail Order Biller Initial Encounter Date of visit: 11/24/2015 Health coaching initial encounter with Venkata Zhao for obesity, original referral from Tremaine Shankar MD. SUBJECTIVE: Venkata Zhao states he thinks his diet is pretty healthy and would like to be as active year round as he is in the summer months. Venkata states his current weight is around 360 pounds, this is nearly the highest his weight has ever been. His goal is to get closer to 300 pounds by the summer. I want to fit on all the roller coasters. Nutrition: Venkata feels his diet is overall pretty healthy. State she is interested in increasing fiber and healthy protein in his diet (specified nuts.) Venkata does eat breakfast, lunch and dinner daily. States breakfast is often some carb with peanut butter or yogurt. Drinks a lot of seltzer water, recently realized that the orange colored seltzer contains artificial sweetener and stopped choosing it. Does drink soda and juice on occasion. Eats on average 2-3 servings of fruits and vegetables/day. Enjoys fish and seafood. Physical Activity: More active in the summer time. Does walk his girl friend's ana segal twice/day 10-30 minutes each walk. States he notices his heart rate elevates and he sweats on these walks about 3 times/week. Would like to increase frequency of intentional physical activity. We discussed the fitness options available through [facility], pt will contact us when he decided what gym he would like to be referred to. OBJECTIVE: BMI AND WEIGHT 10/27/2015 10/29/2015 11/09/2015 Weight (lb) 369 lb 364 lb 364 lb Weight (Kg) 167.377 kg 165.109 kg 165.109 kg Body Mass Index 50.03 50.79 50.79 [facility] intake: Completed Insurance MEDICARE Home Phone [phone] cell Email Address [email or web address] Preferred form of communication PHONE Ethnic Background In general, what would you say your health is? Good Have you seen a dentist for preventive care in the last twelve months? No no dental insurance Have you been feeling down or depressed in the past month? No Do you participate in regular physical activity? Yes walking dog 2x/day If yes, how often? Daily How Long? 10 - 30 minutes Are you a tobacco user? No Do you have concerns about your current alcohol or drug use? No What are your health and wellness goals? Weight Loss What prevents you from meeting them? N/A States its was due to poor sleep but is now using a cpap machine for sleep apnea over past 3 weeks. TOPIC OF CONVERSATION: Engaged patient in conversation related to positive behavior change, self- management, goal setting and action planning using motivational interviewing and active listening. Discussed the [facility] and fitness component. Discussed patients goals. Reviewed the healthy plate method discussing portion sizes and recommendation around fiber intake and recommended intake for whole grains, fruits and vegetables. Discussed fats, briefly including label reading (not practiced.) Also discussed balanced snacks and meals. Pt states he may be interested in tracking his food and calorie intake to get a baseline. Venkata will focus on eating one plant based dinner/week. Educational materials provided: [facility] fitness referral options, Healthy Plate method, fats, healthy/balanced snack ideas, food tracking aps Method: handout and verbal Taught to: Patient Barriers: no barriers Outcomes: Pt verbalized understanding STAGE OF CHANGE: Preparation Action plan: Goals ??? Weight Loss Goal: [...] about your health please visit: https://www.[facility].org/medcenter/Pages/Wellness-Res ources/Lshtxuoau-Gfrxfh-Thedzqwu-Center.aspx PATIENT IDENTIFIED GOALS: Venkata's overall goal is weight loss. Pt specifies that he would like to be more physically active regularly, not just during the summer. Also specifies a goal to lose about60 pounds by this summer. PLAN: Venkata will be more mindful with food choices and will consider the healthy plate method. Maytry calorie/food tracking. Pt plans to eat a plant protein based meal once/week. Venkata is encouraged to contact me with questions as needed. ADDITIONAL INFORMATION FOR PROVIDER: Thank you for this referral Patient's Primary Care Site: [facility], [address] [place] [address] Total Time: 60 minutes spent with patient, 20 minutes charting/scheduling Referral: Nothing at this time Follow up: Date: Tuesday, December 22, 2015 Time: 9:00 AM With: Candice Villalobos, Health Mail Order Biller Location: [facility], [address] [place] [address] Status: Active documented in this encounter Plan [...] learn more about your health please visit: https://www.[facility].org/medcenter/Pages/Wellness-Resources/Bfxixxeee-Kassry-Sa sourc e-Center.aspx documented as of this encounter Visit Diagnoses Not on filedocumented in this encounter Care Teams Cardiopulmonary Supervisor Relationship Specialty Start Date End Date Tremaine Shankar MD [address] [place] [phone] PCP - General 10/18/15 06/21/18 Brittaney Gutiérrez MD PhD [address] [place] [address] 2 [place] [phone] PCP - Alternate 10/21/15 02/12/18 documented as of this encounter
--- OUTSIDE RECORDS SUMMARY | 2024-06-16 15:27 | XMS_ITS | Encounter Summary ---
Author Organization [facility] Address [address] [place] [address] Care Team Providers Care Production Controller Name Role Phone Venkata Fine MD Primary Care Pro vider Reason for Visit * Reason Comments Follow-up excision Encounter Details Date Type Department Care Team (Late st Contact Info) Description 10/06/2015 15:[address] [facility] [address] [place] [address] Unknown, MD Erinn Albaro Loyd MD 130 [facility] [address] [place] [address] Scalp cyst (Primary Dx) Social History [...] No 08/25/2015 documented as of this encounter Procedure Notes * Albaro Loyd MD - 10/06/2015 1618 EST Procedure: Procedures PROCEDURE NOTE: Excision of a scalp lesion. Informed consent of the procedure along with the possible risks, complications, alternatives and aims were discussed in detail with the patient who understands these risks and agrees with the procedure. OPERATIVE PROCEDURE: The patient was placed in a supine position. The margins of the lesion were marked. This measured 3 cm in diameter. Local anesthesia was applied. Final verification was performedand the lesion was excised in an elliptical manner using both blunt and sharp dissection technique.The large cyst was removed in total. The wound was irrigated and closed in multiple layers with 4-0Vicryl and 5-0 nylon sutures. A sterile dressing was applied. Wound care instructions were given tothe patient and specimen was not sent to pathology. PLAN: Follow up in 1 week for suture removal. documented in this encounter Plan of Treatment Not on file documented as of this encounter Visit Diagnoses Diagnosis Scalp cyst- Primary Sebaceous cyst documented in this encounter Care Teams Production Controller Relationship Specialty Start Date End Date Venkata Fine MD PCP - General 07/16/15 10/17/15 documented as of this encounter
--- OUTSIDE RECORDS SUMMARY | 2024-06-16 15:27 | XMS_ITS | Encounter Summary ---
Author Organization [facility] Address [address] [place] [address] Care Team Providers Care Ceramic Sprayer Name Role Phone Unavailable Primary Care Provider Unavailabl e Encounter Details Date Type Department Care Team (Late st Contact Info) Description 12/05/2007 Before PRISM Converted Visit (Maple) [facility] - Maple conversion [address] [place] [address] Mira Lucas MD [address] [place] [address] Social History Tobacco Use Types Packs/Day Years Used Date Smoking Tobacco: Never Assessed Sex and Gender Information Value Date Recorded Sex Assigned at Not on file Gender Identity Not on file Sexual Orientation Not on file documented as of this encounter Plan of Treatment Not on file documented as of this encounter Visit Diagnoses * Evaluation - Mira Lucas - 06/18/2009 0118 EDT Primary Care Internal Medicine [address] [place] [id number] NEW PATIENT EVALUATION - 12/05/2007 REASON FOR VISIT Prescription. HISTORY OF PRESENT ILLNESS Venkata is a 22-year-old male with no previous medical history who is presenting today to the clinicto get a prescription for antihistamines. He is moving into a new household, which has animals, including dogs, which he is allergic to. The pet dander usually causes him to have sneezing, coughing, red and itchy eyes, but he does not experience any shortness of breath with this. He has never taken any allergy medications in the past. REVIEW OF SYSTEMS On the 14-point review of systems the only thing that was described as causing him any problems is anxiety. He states that he gets quite anxious when he is in high stress situations, but feels this is a normal reaction. He denies any symptoms of depression at this time. MEDICATIONS The patient is currently on no medications. ALLERGIES No known drug allergies. MEDICAL/SURGICAL HISTORY None. FAMILY HISTORY He states his father is alive and well. Mother has some kind of thyroid disease, but he is unclear as to what type it is. He also states his maternal grandmother has this thyroid disease and they areboth on medications for this. He has two younger siblings who are also healthy. SOCIAL HISTORY Venkata is a single male who is currently attending college at [employer]. He has taken a year off college and has recently gone back this semester. Hewas previously at [employer]. 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 The patient states that he has fairly poor eating habits, but the roommates he is moving in with eat fairly healthy and he is hoping this will help him. He also states he recently got a membership to the [employer], which he is planning on attending on a regular basis.He denies any tobacco use. He states he drinks about seven units a week and he smokes marihuana about two times a month. OBJECTIVE Vital signs: Blood pressure 126/84, pulse 80, respiratory rate 18, temperature 98.4. Weight is 279?? pounds. Height is 71?? inches, which puts his BMI at 38.4. In general inspection, the patient is alert and oriented in no acute distress. He is obese. HEENT: Head atraumatic, normocephalic. Pupils are equally round and reactive to light and accommodation. Extraocular movements are intact and were anicteric. Mucous membranes are moist. Good dentition. Tympanic membranes were visualized and there was a good cone of light. Neck is supple. Thyroid was palpated, but there were no masses and no asymmetry to the thyroid gland. Cardiovascular: S1, S2 were normal, is regular rate and rhythm, no gallops, murmurs or rubs. Respiratory: Lungs are clear to auscultation bilaterally, but slightly decreased in the right lowerlobe. Neurologic: Sensation was intact bilaterally in all extremities. Strength 5/5 in all extremities and 2+ reflexes in the knees and ankles. ASSESSMENT/PLAN Venkata is a 22-year-old male who has no significant past medical history who is presenting for a prescription for an antihistamine. 1. Allergic rhinitis. We will prescribe Zyrtec 10 mg, taking 1 tablet p.o. daily, No. 30 with 12 refills. We also had discussed the option of taking a nasal spray, including something like Flonase. The patient stated he wanted to try the tablets for now and if he continues to be symptomatic after living with the pets, he will contact us and we can write that prescription. We also discussed all the side effects of the antihistamines. 2. Obesity. We discussed his weight and inactivity during the visit. He states he is well aware of these problems and is in the process of trying to eat healthier and starting to exercise. We also discussed how this can lead to increased cardiovascular risk factors. 3. Health maintenance. We had the patient sign a medical release form today in the office and will get his records. He is unclear whether his immunizations are up to date or not. He states he thinks they are. Other health maintenance issues: the patient states he always wears a safety helmet and a seatbelt. The patient states that he also has safe sexual practices using condoms with any sexual activity. 4. We scheduled a one year followup for the patient, but he will return the clinic if he has any problems prior to that office visit. The patient was precepted with Dr. Duncan Rose. saw and examined the patient with the resident/fellow. I agree with the findings and plan of care documented in the resident's/fellow's note. Signed by Omega Rose MD,MPH 12/12/2007 15:38 SHANE Hauser Oemga Rose MD,MPH D: - SHANE Hauser - [facility] Job ID: [id number] Doc ID: [id number] cc: documented in this encounter
--- OUTSIDE RECORDS SUMMARY | 2024-06-16 15:27 | XMS_ITS | Encounter Summary ---
Author Organization [facility] Address [address] [place] [address] Care Team Providers Care Expense Clerk Name Role Phone Unavailable Primary Care Provider Unavailabl e Encounter Details Date Type Department Care Team (Late st Contact Info) Description 12/05/2007 14:00 EDT Hospital Encounter [facility] [address] [place] [address] Omega Rose MD [address] [phone] Mira Lucas MD [address] [place] [address] Social History Tobacco Use Types Packs/Day Years [...] learn more about your health please visit: https://www.[facility].org/medcenter/Pages/Wellness-Resources/Mttfceijh-Usfmve-[place] e-Center.aspx documented as of this encounter Visit Diagnoses Not on filedocumented in this encounter
[2024-06-16 17:55] LABS: Lithium 0.7 mmol/L (0.6-1.2)
== END 2024-06-16 15:18 | disposition home or self-care (01) ==
LOC: LBO 15:20
PROVIDERS: Nurse Practitioner Psychiatric/Mental Health; PCP Nurse Practitioner Family; Visit Provider Nurse Practitioner Family
DX: F31.74 Bipolar disorder, in full remission, most recent episode manic (principal); Z79.899 Other long term (current) drug therapy
CPT/HCPCS: 36415; 80178

== ENCOUNTER 2024-08-25 02:16 | Outpatient (CLI) | payer OTHER, SELFPAY ==
--- NOTE | 2024-08-25 15:44 | DI.RAD_ITS ---
Exam(s) XR ELBOW RT COMPLETE EXAM: XR ELBOW RT COMPLETE CLINICAL HISTORY: PAIN RT ELBOW M25.531 PAIN RT WRIST M25.531. TECHNIQUE: 2D digital imaging was performed. Three views. COMPARISON: No exams were available for comparison FINDINGS: BONES: No acute fracture is present. No bony destructive lesion is seen. JOINTS: The elbow is normally aligned. No joint effusion is seen. SOFT TISSUE: Normal. IMPRESSION: Unremarkable radiographs of the right elbow. DATA REPOSITORY: RADIATION DOSE DELIVERED:
--- NOTE | 2024-08-25 15:44 | DI.RAD_ITS ---
Exam(s) XR WRIST RT COMPLETE EXAM: XR WRIST RT COMPLETE CLINICAL HISTORY: PAIN RT ELBOW M25.531 PAIN RT WRIST M25.531. TECHNIQUE: 2D digital imaging was performed. Three views. COMPARISON: No exams were available for comparison FINDINGS: BONES: No acute fracture is present. No bony destructive lesion is seen. JOINTS: The carpal bones are normally aligned. SOFT TISSUE: Normal. IMPRESSION: Unremarkable radiographs of the right wrist. DATA REPOSITORY: RADIATION DOSE DELIVERED:
== END 2024-08-25 02:36 ==
LOC: DI 02:16
PROVIDERS: PCP Nurse Practitioner Family; Visit Provider Nurse Practitioner Family
DX: M25.531 Pain in right wrist (principal); M25.521 Pain in right elbow
CPT/HCPCS: 73080; 73110

== ENCOUNTER 2024-08-26 10:24 | Outpatient (REF) | payer BC, MEDICARE, SELFPAY ==
[2024-08-26 16:28] LABS: ALT 44 U/L (16-63); AST 14 U/L (15-37); Alkaline Phosphatase 103 U/L (46-116); Anion Gap 12.9 mmol/L (3-11); BUN 15 mg/dL (7-18); Bilirubin, Total 0.93 mg/dL (0.2-1.0); CO2 22.1 mmol/L (21.0-32.0); CREATININE 0.9 mg/dL (0.70-1.30); Chloride 106 mmol/L (98-107); Estimated GFR 112.81 (mL/min/1.73m2); Glucose 350 mg/dL (74-106); Potassium 4.2 mmol/L (3.5-5.1); Sodium 141 mmol/L (136-145); Total Protein 6.8 g/dL (6.4-8.2)
== END 2024-08-26 10:25 | disposition home or self-care (01) ==
LOC: NCHCN 10:24
PROVIDERS: PCP Nurse Practitioner Family; Visit Provider Nurse Practitioner Family
DX: E11.9 Type 2 diabetes mellitus without complications (principal)
CPT/HCPCS: 80053; 83036

== ENCOUNTER 2025-06-10 13:33 | Outpatient (CLI) | payer BC, MEDICARE, SELFPAY ==
[2025-06-10 13:22] LABS: Lithium 0.7 mmol/L (0.6-1.2)
== END 2025-06-10 13:34 | disposition home or self-care (01) ==
LOC: LBO 07-24 13:33
PROVIDERS: PCP Nurse Practitioner Family; Visit Provider Nurse Practitioner Psychiatric/Mental Health
DX: F31.74 Bipolar disorder, in full remission, most recent episode manic (principal); Z79.899 Other long term (current) drug therapy
CPT/HCPCS: 36415; 80178